=== PATIENT | male | born 2005 | race Caucasian/White ===

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

== ENCOUNTER 2025-01-17 16:06 | Inpatient (IN) ==
[2025-01-17 17:01] LABS: Basophils # (auto) 0.07 K/uL (0.00-0.20); Basophils % (auto) 1.1 %; Eosinophils # (auto) 0.17 K/uL (0.00-0.50); Eosinophils % (auto) 2.7 %; Hematocrit (blood only) 23.4 % (42.0-52.0); Hemoglobin 8.2 g/dl (14.0-18.0); Immature Granulocytes # (auto) 0.02 K/uL (0.01-0.20); Immature Granulocytes % (auto) 0.3 %; Lymphocytes # (auto) 1.49 K/uL (1.20-3.40); Lymphocytes % (auto) 23.7 %; Mean Corpuscular Volume 85.7 fL (80.0-100.0); Mean Platelet Volume 11.4 fL (9.4-12.4); Monocytes # (auto) 0.39 K/uL (0.11-0.59); Monocytes % (auto) 6.2 %; Neutrophils # (auto) 4.16 K/uL (1.40-6.50); Platelet Count 132 K/uL (130-400); RDW Coefficient of Variation 13.7 % (11.5-14.5); RDW Standard Deviation 42.5 fL (36.4-46.3); Red Blood Count 2.73 M/uL (4.70-6.10)
[2025-01-17 17:15] LABS: Appearance Urine Clear (Clear); Bacteria Urine Automated None Seen (None Seen); Bilirubin Urine Negative (Negative); Blood Urine 2+ (Negative); Cast Urine Automated 0-2 /lpf (0-2); Color Urine Yellow; Epithelial Cell Urine Auto 0-2 /hpf (0-2); Glucose Urine UA 1+ (Negative); Ketones Urine Negative (Negative); Leukocyte Esterase Urine Negative (Negative); Nitrite Urine Negative (Negative); Protein Urine 4+ (Negative); Specific Gravity Urine 1.014 (1.000-1.030); Urobilinogen Urine Negative (Negative)
[2025-01-17 17:20] LABS: Albumin Globulin Ratio 0.9 (0.9-2); Albumin Level 2.5 gm/dl (3.4-5.0); Bilirubin,Total 0.2 mg/dl (0.2-1.0); Calcium 4.9 mg/dl (8.6-10.3); Creatinine Clr Calc Pharmacy 7.1 ml/min; Globulin 2.7 gm/dl (2.5-4.0); Potassium 4.1 mmol/L (3.5-5.1); Total Protein 5.2 gm/dl (6.0-8.3)
[2025-01-17 17:36] LABS: BUN Creatinine Ratio 7.3 (10-20)
[2025-01-17 18:02] LABS: INR 1.4 (0.9-1.1); Prothrombin Time 14.3 Seconds (9.0-12.0)
[2025-01-17] MEDS: CALCIUM GLUCONATE 1,000 MG/60 ML BAG IV STA ×3 (18:21→23:16)
--- NOTE | 2025-01-17 18:29 | Emergency Department Note ---
Impression & Plan ARIANA (acute kidney injury), FSGS (focal segmental glomerulosclerosis), CKD (chronic kidney disease), Hypocalcemia ED Provider Note NAME: JI MCCOY AGE: 20 SEX: M : 2005 ARRIVES VIA: Walk-In INFORMANT: Patient, ED PROVIDER(S): Bebe Herrera MD CHIEF COMPLAINT: Elevated creatinine HPI: This is a 20-year-old male with history of FSGS, CKD, nephrotic syndrome presenting for elevated creatinine. Patient states he was doing routine blood work today to check his INR when they also added on normal labs. At this time his creatinine is over 18. Told to come to the ER for this. Patient tells me he said no acute changes to his life. The only change he has had is that he notes occasional cramping to any muscle. He notes no fevers, chills, nausea, vomiting. No oliguria. He is urinating normal amounts as per self-report. He reports no discolored urine or dark urine but he notes it is fairly clear. ROS: See above HPI for pertinent positives & negatives. A total of 10 systems reviewed and were otherwise negative. PAST MEDICAL HISTORY: See Below PAST SURGICAL HISTORY: See Below FAMILY HISTORY: See Below SOCIAL HISTORY: See Below HOME MEDICATIONS: See Below ALLERGIES: See Below VITALS: See Below PHYSICAL EXAMINATION: General: resting comfortably in no acute distress Head: Normocephalic and atraumatic Eyes: Normal inspection, extraocular muscles intact Ear, nose, throat: Normal external exam Neck: Normal range of motion Respiratory: lungs clear to auscultation bilaterally Cardiovascular: Regular rate/rhythm, no murmur GI: soft, nontender, no guarding or rebound Extremities: nontender, moves all extremities Neuro: The patient awake and alert, appropriately conversive, no focal deficits, symmetric faces Skin: Warm, dry, and intact MEDICAL DECISION MAKING: This is a 20-year-old male presents for elevated creatinine. Patient's creatinine is over 18. His calcium is 4.6 with ionized calcium of 0.64. Will give calcium gluconate at this time. - Patient does not appear grossly fluid overloaded. - Lab work is reviewed currently with new anemia to 8.2, consider chronic from his CKD. He is reported no rectal bleeding. INR here is 1.4 otherwise (down from 3.6 about 2 hours earlier_ - BUN 138. Total protein albumin low as well. - Urinalysis reveals WBC, RBC, protein without signs of clear infection. -Discussed with Dr. Braxton for admission. Requests nephrology consultation prior to admission - Dr. Woods, terrazzo polisher helper, consulted. Advised to watch fluid status, correct electrolytes. - Patient admitted to Dr. Braxton. Differential diagnosis: CKD, ARIANA, renal failure, oliguria, hypokalemia, hyperkalemia, Independent History obtained from: sister and mother Diagnostics interpreted by me: ECG: None Cardiac Monitoring: An order was placed for continuous cardiac monitoring. The monitor shows a rate of 96 with rhythm. Past Med/Surg History Problem List (Updated 09/21/23 @ 00:08 by Background Daemon) Hypocalcemia (Acute) CKD (chronic kidney disease) (Acute) FSGS (focal segmental glomerulosclerosis) (Acute) ARIANA (acute kidney injury) (Acute) Hypocalcemia due to chronic kidney disease Generalized anxiety disorder Thrombophilia Superficial venous thrombosis of arm Vitamin D deficiency FSGS (focal segmental glomerulosclerosis) Stage 3b chronic kidney disease Warfarin anticoagulation Abdominal pain Abnormal thyroid function test Leukocytosis Acute kidney injury Anasarca associated with disorder of kidney (Acute) Biceps tendinitis Left shoulder pain Hypertension Nephrotic syndrome (Chronic) Internal derangement of knee Acute medial meniscus tear of left knee S/P left knee arthroscopy Surgical History (Updated 09/21/23 @ 00:08 by Background Daemon) H/O hernia repair No significant past surgical history Family History Mother Diabetes Grandfather (Maternal) Hypertension Other No family history of adverse response to anesthesia Denies family history of Ovarian cancer Prostate cancer Myocardial infarction Breast cancer Lung cancer Stroke Social History Smoking Status: Never smoker Second Hand Exposure: Yes (mom smokes); Do You Dip or Chew Tobacco: No; Hx Alcohol Use: No Hx Substance Use: No Preferred Language: Indian Communication Ability: Effective Visual Impairment: No Limitations Hearing Ability: Normal Employment Office Clerk Required: No Beliefs That Will Affect Care: None marital status: Single Current Living Situation: Family Current Living Situation Comment: lives at home with parents current occupational status: employed 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 How many Children do You have: 0 Feels Safe at Home: Yes Childhood Exposure to Second-Hand Smoke: No caffeine: No Dental Care, Regularly: Yes Physical Activity Frequency: 5-6 Times per Week Seatbelt Use: always Sunscreen Use: No Assistive Devices: None Allergies Allergies Allergy/AdvReac Type Severity Reaction Status Date / Time No Known Allergies Allergy Unknown Verified 01/17/25 18:03 Home Meds Home Medications Medication Instructions Recorded Confirmed warfarin 5 mg tablet See Rx Instructions PO DAILY 10/22/24 01/17/25 Previous Rx's Medication Instructions Recorded losartan 25 mg tablet 25 mg PO DAILY #30 tabs 10/21/24 hydroxyzine HCl 25 mg tablet 25 mg PO TID PRN anxiety #90 tabs 11/13/24 Results & Data (ED) Vital Signs Vital Signs - 24 hr 01/17/25 16:25 01/17/25 18:17 Temperature 36.6 C Temperature Source Temporal Artery Scan Pulse Rate 85 Pulse Rate [Finger] 96 H Respiratory Rate 20 16 Respiratory Effort / Characteristics Non-Labored Spontaneous Non-Labored Spontaneous Respiratory Depth Normal Normal Respiratory Pattern Regular Regular Blood Pressure 203/129 H Blood Pressure [Right Arm] 178/120 H Blood Pressure Mean 153 Blood Pressure Mean [Right Arm] 139 Blood Pressure Position Sitting Blood Pressure Position [Right Arm] Lying Pulse Oximetry 100 96 Oxygen Delivery Method Room Air Room Air Sepsis Recent Fever Within 48 Hours No Sepsis New/Unexplained Change in Mental Status N/A Sepsis Action Taken by Nursing No Action Required Laboratory Data 01/17/25 16:45 01/17/25 16:45 Lab Results 01/17/25 01/17/25 Range/Units 16:45 17:22 WBC 6.30 (4.8-10.8) K/ul RBC 2.73 L (4.70-6.10) M/uL Hgb 8.2 L (14.0-18.0) g/dl Hct 23.4 L (42.0-52.0) % MCV 85.7 (80.0-100.0) fL MCH 30.0 (25.0-34.0) pg MCHC 35.0 (32.0-36.0) g/dL RDW Std Deviation 42.5 (36.4-46.3) fL RDW Coeff of Juliana 13.7 (11.5-14.5) % Plt Count 132 (130-400) K/uL MPV 11.4 (9.4-12.4) fL Immature Gran % (Auto) 0.3 % Neut % (Auto) 66.0 % Lymph % (Auto) 23.7 % White % (Auto) 6.2 % Eos % (Auto) 2.7 % Baso % (Auto) 1.1 % Neut # (Auto) 4.16 (1.40-6.50) K/uL Lymph # (Auto) 1.49 (1.20-3.40) K/uL White # (Auto) 0.39 (0.11-0.59) K/uL Eos # (Auto) 0.17 (0.00-0.50) K/uL Baso # (Auto) 0.07 (0.00-0.20) K/uL Immature Gran # (Auto) 0.02 (0.01-0.20) K/uL PT 14.3 H (9.0-12.0) Seconds INR 1.4 H (0.9-1.1) Sodium 140 (136-145) mmol/L Potassium 4.1 (3.5-5.1) mmol/L Chloride 109 H (98-107) mmol/L Carbon Dioxide 18 L (21-32) mmol/L Anion Gap 13 H (3-11) BUN 138 H (6-23) mg/dl Creatinine 18.80 H* (0.6-1.4) mg/dl Est Cr Clr Drug Dosing 7.1 ml/min eGFR 3.27 BUN/Creatinine Ratio 7.3 L (10-20) Glucose 91 (70-99(Fasting)) mg/dl Calcium 4.9 L* (8.6-10.3) mg/dl Ionized Calcium 0.64 L* mmol/L Total Bilirubin 0.2 (0.2-1.0) mg/dl AST 27 (13-39) U/L ALT 17 (7-52) U/L Alkaline Phosphatase 91 (34-104) U/L Total Protein 5.2 L (6.0-8.3) gm/dl Albumin 2.5 L (3.4-5.0) gm/dl Globulin 2.7 (2.5-4.0) gm/dl Albumin/Globulin Ratio 0.9 (0.9-2) Urine Color Yellow Urine Appearance Clear (Clear) Urine pH 6.0 (4.5-7.5) Ur Specific Stuart 1.014 (1.000-1.030) Urine Protein 4+ H (Negative) Urine Glucose (UA) 1+ H (Negative) Urine Ketones Negative (Negative) Urine Blood 2+ H (Negative) Urine Nitrite Negative (Negative) Urine Bilirubin Negative (Negative) Urine Urobilinogen Negative (Negative) Ur Leukocyte Esterase Negative (Negative) Urine WBC (Auto) 6-10 H (0-5) /hpf Urine RBC (Auto) 11-20 H (0-2) /hpf U Hyaline Cast (Auto) 0-2 (0-2) /lpf U Epithel Cells (Auto) 0-2 (0-2) /hpf Urine Bacteria (Auto) None Seen (None Seen) Administered Medications Discontinued Medications Calcium Gluconate () 1,000 mg in 60 mls @ 240 mls/hr IV NOW STA Stop: 01/17/25 18:17 Last Infusion: 01/17/25 18:57 Dose: Infused Documented By: Admin: 01/17/25 18:21 Dose: 240 mls/hr Documented By: CRIS Discharge Plan Visit Data Chief Complaint: Abnormal Labs/Diagnostic Testing Stated Complaint: ABNORMAL LABS, REF BY DEC ED Provider: Bebe Herrera Discharge Problem: ARIANA (acute kidney injury), FSGS (focal segmental glomerulosclerosis), CKD (chronic kidney disease), Hypocalcemia Forms Stand Alone Forms: [email or web address] Prescriptions Prescriptions: No Action warfarin 5 mg tablet See Rx Instructions PO DAILY Rx Instructions: TAKES AT HS. 0 mg every Monday, 10mg x 6 days or UD per [facility] orally daily; hydroxyzine HCl 25 mg tablet 25 mg PO TID PRN (Reason: anxiety) Qty: 90 1RF losartan 25 mg tablet 25 mg PO DAILY Qty: 30 2RF Referrals Referrals: Harsh Marshall DO [Primary Care Provider] - Discharge Problem: CKD (chronic kidney disease) Qualifiers: Chronic kidney disease stage: stage 5 (GFR < 15), not on chronic dialysis Q ualified Code(s): N18.5 - Chronic kidney disease, stage 5
[2025-01-17] MEDS ORDERED: MELATONIN 3 MG TAB PO PRN (19:02)
[2025-01-17] MEDS ORDERED: POLYETHYLENE (MIRALAX) 17 GM PACK PO PRN (19:02)
--- NOTE | 2025-01-17 19:26 | History & Physical Report ---
Date of Service January 17, 2025 Assessment & Plan (1) Hypocalcemia: (2) CKD (chronic kidney disease): (3) FSGS (focal segmental glomerulosclerosis): (4) ARIANA (acute kidney injury): (5) Generalized anxiety disorder: (6) Thrombophilia: (7) Superficial venous thrombosis of arm: (8) Hypertension: (9) Anemia: (10) Metabolic acidosis: Plan 20 yo male with h/o Stage 3B CKD with Nephrotic syndrome with FSGS, thrombophilia under warfarin, CORTES presented to ED with elevated creatinine number, was referred by PCP office to ED. ED team consulted with nephrology Dr. Woods, who recommends IV fluids an reassess. There is no indication for HD right away. His calcium is pretty low, s/p 2 gm IV Ca gluconate, symptomatic, will recheck Ca tonight before repeating 3rd dose. # ARIANA on CKD with metabolic acidosis - Cr: 18, K: 4.4, mild anion gap metabolic acidosis( CO2: 18). - IV fluid maintenance; 100 ml / hr LR. - Recheck evening labs at 11 . - Recheck labs at AM. - Nephrology Dr. Woods informed by ED-- will follow. No need of HD now. #Severe Hypocalcemia - 2/2 to CKD. - Ca: 4.9/ Ionized Ca: 0.64 - S/P 1 gm Calcium Gluconate X 2 given at ED. - Will recheck Ca tonight and add more Ca if needed. -Admit to Med/ surg tele. -EKG STAT -TSH AM. #Thrombophilia under Coumadin - H/O superficial VT, no DVT/ PE. - INR: 1.4( goal 2-3) - Restart home Coumadin. - Recheck INR AM. #HTN - 2/2 to FSGS - Home Losartan held - Hydralazine 5 mg IV PRN ( SBP> 200) Dispo: Admit med/surg Tele DVT prophylaxis: Warfarin Code Status: Full History of Present Illness Primary Care Provider: Harsh Marshall DO 20 yo male with h/o Stage 3B CKD with Nephrotic syndrome with FSGS, thrombophilia under warfarin, CORTES presented tp ED with deranged creatinine. He was doing his regular labs today and PCP office informed him to go to ED. Does not endorse swelling anywhere in body, no change in urine output that he notices. He had presented with body swelling when he initially had kidney injury on 2021. He gives h/o having more frequent muscle cramps of extremity, mostly in legs, in night time in last 1 month. He mentions he has decreased appetite from baseline but no nausea or vomiting or No distension of belly, no flank pain, no CP, no SOB. No obstructive symptoms of urine, no fever, URI sx, no trauma, exposure to sick contact. Gives h/o passing out once 2 weeks ago when he was out in a concert, no abnormal body movement, no muscle weakness, no vomiting, thinks it was probably because of excessive heat in mass of people. No recurrent LOC/passing put after that. His INR tested on PCP's office was in range of 8 two days back, hence warfarin was on hold, was planned to start fro, today from Coumadin clinic. Endorses h/o superficial thrombophlebitis following an IV, however no DVT or PE. Family: Uncle has h/o blood issue, pretty severe he says, not sure what it is, though. No 1st degree family history. PMH: reviewed Drug and Allergy : reviewed Allergies Allergy/AdvReac Type Severity Reaction Status Date / Time No Known Allergies Allergy Unknown Verified 01/17/25 18:03 Home Medications Medication Instructions Recorded Confirmed Type losartan 25 mg tablet 25 mg PO DAILY #30 tabs 10/21/24 01/17/25 Rx warfarin 5 mg tablet See Rx Instructions PO DAILY 10/22/24 01/17/25 History hydroxyzine HCl 25 mg tablet 25 mg PO TID PRN anxiety #90 tabs 11/13/24 01/17/25 Rx Past Med/Surg History Problem List (Updated 09/21/23 @ 00:08 by Background Daemon) Metabolic acidosis Anemia Hypocalcemia (Acute) CKD (chronic kidney disease) (Acute) FSGS (focal segmental glomerulosclerosis) (Acute) ARIANA (acute kidney injury) (Acute) Hypocalcemia due to chronic kidney disease Generalized anxiety disorder Thrombophilia Superficial venous thrombosis of arm Vitamin D deficiency FSGS (focal segmental glomerulosclerosis) Stage 3b chronic kidney disease Warfarin anticoagulation Abdominal pain Abnormal thyroid function test Leukocytosis Acute kidney injury Anasarca associated with disorder of kidney (Acute) Biceps tendinitis Left shoulder pain Hypertension Nephrotic syndrome (Chronic) Internal derangement of knee Acute medial meniscus tear of left knee S/P left knee arthroscopy Surgical History (Updated 09/21/23 @ 00:08 by Paulino Wilkes) H/O hernia repair No significant past surgical history Family History Mother Diabetes Grandfather (Maternal) Hypertension Other No family history of adverse response to anesthesia Denies family history of Ovarian cancer Prostate cancer Myocardial infarction Breast cancer Lung cancer Stroke Social History Smoking Status: Never smoker Second Hand Exposure: Yes (mom smokes); Do You Dip or Chew Tobacco: No; Hx Alcohol Use: No Hx Substance Use: No Preferred Language: Divehi Communication Ability: Effective Visual Impairment: No Limitations Hearing Ability: Normal Gate Supervisor Required: No Beliefs That Will Affect Care: None marital status: Single Current Living Situation: Family Current Living Situation Comment: lives at home with parents current occupational status: employed 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 HEENT: Atraumatic, Normocephalic, No conjunctival injection CVS: S1 S2 no murmur, Regular Rhythm, no LE edema Respiratory: BL equal air entry with NVBS. No rhonchi, wheezes, or crackles. No increased work of breathing GI: Soft, Nondistended, Nontender, Normal Bowel sounds + MSK: No gross deformities noted Skin: Warm, Dry, No rashes Extremity: no extremity swelling Neuro: Alert, Oriented to TPP, No Focal deficit Psych: Mood and Affect congruent, Cooperative on exam Results & Data Results & Data Vital Signs (Past 12 Hours) Vital Signs Temp Pulse Pulse Resp BP BP Pulse Ox 01/17/25 18:17 96 H 16 178/120 H 96 01/17/25 16:25 36.6 C 85 20 203/129 H 100 O2 Del Method 01/17/25 18:17 Room Air 01/17/25 16:25 Room Air Code Status & VTE Plan VTE Prophylaxis Plan VTE Prophylaxis will be ordered: Yes Supervising Physician Co-Signing Physician Notes I have personally seen, evaluated and examined the patient. I have also personally discussed the management of the patient with the resident physician/EFRAIN and I agree with the exam findings documented in the history and physical examination and the documented assessment and plan unless otherwise stated below. Brief Exam: In general very pleasant 20-year-old male who is alert and oriented x 3. His only complaint is intermittent cramping currently at the time my evaluation is having a right lower extremity cramp. States has been urinating normally. He has no urinary symptomatology. He interacts appropriate and pleasantly. HEENT: Normocephalic atraumatic. Heart: Regular rate and rhythm no murmur ectopy or rub Lungs: Clear bilaterally. Abdomen: Flat soft and nontender. Extremities: Intact no significant clubbing cyanosis or edema. Neurologically: Alert and orient x 3 with no focal deficit whatsoever. Assessment/plan: As described above. Acute kidney injury CKD stage in the setting of FSGS. IV fluids. Nephrology consulted. ER doctor spoke personally with the patient's outpatient filing clerk who will see him as inpatient consultation. Replace calcium and recheck levels. Will start with 2 g total of calcium gluconate. Hold his angiotensin receptor carmelita. As needed hydralazine for blood pressure control at this time. Bladder scan for completeness I did speak with the nurse at the bedside to let us know if the patient is retaining urine. Will give 1 dose of Coumadin tonight 5 mg. Recheck INR in the morning. He will need daily Coumadin dosing. Please refer to orders for further planning. Resident Activity Tracking Resident Involvement: Resident Care Provided Care Provided: Adult Hospital Medicine (2) CKD (chronic kidney disease) Chronic kidney disease stage: stage 5 (GFR < 15), not on chronic dialysis Qualified Code(s): N18.5 - Chronic kidney disease, stage 5
--- NOTE | 2025-01-17 20:29 | Billing Data ---
Date of Service January 17, 2025 Coding Level of Care Code 64700 INT INP/OBS CARE
[2025-01-17] MEDS: LACTATED RINGER'S 1,000 ML IV SCH (20:40)
[2025-01-17] MEDS ORDERED: hydrALAZINE HCL 20 MG/ML VIAL IV PRN (22:09)
[2025-01-17] MEDS ORDERED: hydrOXYzine HCl 25 MG TAB PO PRN (22:09)
[2025-01-17] MEDS: WARFARIN SOD 10 MG TAB PO STA (23:15)
[2025-01-17 23:38] LABS: Calcium 4.9 mg/dl (8.6-10.3); Creatinine Clr Calc Pharmacy 6.9 ml/min; Magnesium 1.5 mg/dl (1.7-2.4); Potassium 3.5 mmol/L (3.5-5.1)
[2025-01-17 23:59] LABS: BUN Creatinine Ratio 7.3 (10-20)
[2025-01-18 07:55] LABS: Hematocrit (blood only) 20.3 % (42.0-52.0); Mean Corpuscular Hemoglobin 29.7 pg (25.0-34.0); Mean Corpuscular Hgb Conc 34.5 g/dL (32.0-36.0); Mean Platelet Volume 11.4 fL (9.4-12.4); Platelet Count 108 K/uL (130-400); RDW Coefficient of Variation 13.6 % (11.5-14.5); RDW Standard Deviation 42.8 fL (36.4-46.3); Red Blood Count 2.36 M/uL (4.70-6.10)
[2025-01-18 08:04] LABS: INR 1.3 (0.9-1.1); Prothrombin Time 13.6 Seconds (9.0-12.0)
[2025-01-18 08:07] LABS: Basophils # (auto) 0.08 K/uL (0.00-0.20); Basophils % (auto) 1.4 %; Eosinophils # (auto) 0.19 K/uL (0.00-0.50); Eosinophils % (auto) 3.4 %; Immature Granulocytes # (auto) 0.02 K/uL (0.01-0.20); Immature Granulocytes % (auto) 0.4 %; Lymphocytes # (auto) 1.34 K/uL (1.20-3.40); Lymphocytes % (auto) 23.9 %; Monocytes # (auto) 0.31 K/uL (0.11-0.59); Monocytes % (auto) 5.5 %; Neutrophils # (auto) 3.66 K/uL (1.40-6.50); Neutrophils % (auto) 65.4 %; RBC Morphology Unremarkable
[2025-01-18 08:31] LABS: BUN Creatinine Ratio 7.2 (10-20); Potassium 4.1 mmol/L (3.5-5.1)
[2025-01-18] MEDS: ERGOCALCIFEROL 1250 MCG (50,000 UNITS) CAP PO ONE (08:37)
[2025-01-18] MEDS: CHOLECALCIFEROL 125 MCG (5,000 UNITS) TAB PO SCH (08:37)
[2025-01-18] MEDS: CALCIUM CARBONATE 500 MG CHEWABLE TAB PO SCH (09:09)
--- NOTE | 2025-01-18 10:48 | Nephrology Consultation ---
Date of Consultation January 18, 2025 Assessment & Plan (1) CKD (chronic kidney disease): CKD V A3. Biopsy from September 2023 demonstrated advanced CKD. Findings consistent with primary FSGS. Immunotherapy is not be indicated at this stage. Creatinine was 7.5 mg/dL in September. Creatinine is now >18. Kvng is living with minimal GFR. Thankfully, he feels well and denies uremic symptoms. Unfortunately, he has notable sequela of CKD, including MBD and anemia. Volume status is relatively euvolemic but he is hypertensive. We discussed indications for dialysis today. I reviewed options for [employer] and we discussed goals of care. Kvng reports no knowledge about renal replacement therapy options or indications. He acknowledged his advanced CKD but expressed hesitancy is moving forward with plans for dialysis. I explained that starting hemodialysis before he leaves the hospital would be the safest and best option for his health. We discussed potential HD catheter placement on Monday. He is processing the information. Management provided today was focused on treatment of metabolic acidosis, anemia, and hypocalcemia. Medications are appropriate for kidney function. Maintain a renal diet. Labs will be updated tomorrow AM and I will follow up with Kvng at that time. (2) FSGS (focal segmental glomerulosclerosis): Records from Dr. Guevara and prior biopsy report were reviewed. (3) Hypocalcemia: Start calcitriol 1 mcg daily. Continue calcium carbonate 4054-0466 mg daily. Check calcium, ionized calcium, phosphorus, PTH, and albumin tomorrow AM. (4) Anemia: Epogen 10477 units SC now. Iron profile with next labs. (5) Metabolic acidosis: Continue calcium carbonate. Recheck serum metabolic profile tomorrow AM. (6) Hypertension: Amlodipine 5 mg now. Consider holding IVF once current bag complete. Avoid RAASi - OC/ARB for now given advanced CKD. History of Present Illness Reason for Consultation: ARIANA on CKD Requesting Physician: Ja Wisdom DO Attending Physician: Ja Wisdom DO History of Present Illness Mr. Kvng Ramos is a 20 year-old male with chronic kidney disease who presented to the ER at [facility] yesterday after blood work obtained by his PCP demonstrated advanced kidney dysfunction and anemia. Kvng states that he has been feeling well. He admits to recent muscle cramps and fatigue but good strength and overall quality of life. He has been working out - going to the gym 3x per week, staying on his feet all day at work, and eating healthy. He was resting comfortably in his hospital bed this morning. Appetite is good. He denies fluid retention or edema. He is non-oliguric. He is working at [employer] currently and living with his mother. He has a history of occasional migraine headaches managed with Tylenol. He does not use NSAIDS. 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 The only medication that he has been taking is Coumadin. Creatinine in September was measured at 7.5 mg/dL. Kvng has not maintained regular follow up with nephrology. He has [place] [facility] [place] with Dr. Guevara in the past. In September, they discussed potential progression to ESKD requiring dialysis. Treatment options for his condition were discussed at that time, including Rituximab but Kvng declined. He has been managing his condition with dietary modification. Kvng has been aware of his kidney disease who a long time. 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 A follow up biopsy obtained in September 2023 was consistent with advanced kidney disease ( glomeruli globally sclerosed; ~70% IFTA) and primary FSGS. Nephrotic range proteinuria for years - documented at 10-40 g/d. Allergies Allergy/AdvReac Type Severity Reaction Status Date / Time No Known Allergies Allergy Unknown Verified 01/17/25 18:03 Home Medications Medication Instructions Recorded Confirmed Type losartan 25 mg tablet 25 mg PO DAILY #30 tabs 10/21/24 01/17/25 Rx warfarin 5 mg tablet See Rx Instructions PO DAILY 10/22/24 01/17/25 History hydroxyzine HCl 25 mg tablet 25 mg PO TID PRN anxiety #90 tabs 11/13/24 01/17/25 Rx Patient History Medical History (Updated 01/18/25 @ 10:50 by Andriy Woods DO) Acute medial meniscus tear of left knee Surgical History (Updated 01/18/25 @ 10:50 by Andriy Woods DO) S/P left knee arthroscopy H/O hernia repair Family History Mother Diabetes Grandfather (Maternal) Hypertension Other No family history of adverse response to anesthesia Denies family history of Ovarian cancer Prostate cancer Myocardial infarction Breast cancer Lung cancer Stroke Social History Smoking Status: Never smoker Second Hand Exposure: Yes (mom smokes); Do You Dip or Chew Tobacco: No; Hx Alcohol Use: No Hx Substance Use: Yes Substance Use Type Other:: medical card Preferred Language: Central [place] Communication Ability: Effective Visual Impairment: No Limitations Hearing Ability: Normal Road Cutter Required: No Beliefs That Will Affect Care: None marital status: Single Current Living Situation: Family Current Living Situation Comment: lives at home with parents current occupational status: employed 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 How many Children do You have: 0 Feels Safe at Home: Yes Childhood Exposure to Second-Hand Smoke: No caffeine: No Dental Care, Regularly: Yes Physical Activity Frequency: 5-6 Times per Week Seatbelt Use: always Sunscreen Use: No Assistive Devices: None Review of Systems Review of Systems: All systems reviewed & are unremarkable except as noted in HPI & below Physical Exam Constitutional: well developed; no acute distress Eyes: no scleral abnormality and no corneal abnormality ENMT: Mouth: no oral mucosal abnormality and oral mucous membranes not dry Neck: normal visual inspection and trachea midline Respiratory: normal respiratory effort Auscultation: lungs clear to auscultation bilaterally Cardiovascular: Rate/Rhythm: regular rate Heart Sounds: normal S1 and normal S2 Extremities: no edema Musculoskeletal: Extremities: no cyanosis and no clubbing Skin: normal turgor; no lesions Neurologic: Motor/Sensory: + asterixis Psychiatric: Orientation: alert and oriented x 3 Results & Data Vital Signs (Past 12 Hours) Vital Signs Temp Pulse Pulse Pulse Resp BP Pulse Ox 01/18/25 08:11 78 18 178/80 H 100 01/18/25 05:53 64 01/18/25 03:40 36.5 C 68 16 157/90 H 98 01/18/25 01:14 01/18/25 00:23 36.6 C 80 17 183/82 H 100 01/18/25 00:17 80 01/17/25 23:09 86 20 171/109 H 99 O2 Del Method 01/18/25 08:11 Room Air 01/18/25 05:53 01/18/25 03:40 Room Air 01/18/25 01:14 Room Air 01/18/25 00:23 Room Air 01/18/25 00:17 01/17/25 23:09 Room Air Laboratory Results Laboratory Results - last 24 hr 01/17/25 01/17/25 01/17/25 16:45 17:22 22:39 WBC 6.30 RBC 2.73 L Hgb 8.2 L Hct 23.4 L MCV 85.7 MCH 30.0 MCHC 35.0 RDW Std Deviation 42.5 RDW Coeff of Juliana 13.7 Plt Count 132 MPV 11.4 Immature Gran % (Auto) 0.3 Neut % (Auto) 66.0 Lymph % (Auto) 23.7 [place] % (Auto) 6.2 Eos % (Auto) 2.7 Baso % (Auto) 1.1 Neut # (Auto) 4.16 Lymph # (Auto) 1.49 [place] # (Auto) 0.39 Eos # (Auto) 0.17 Baso # (Auto) 0.07 Immature Gran # (Auto) 0.02 RBC Morphology PT 14.3 H INR 1.4 H Sodium 140 136 Potassium 4.1 3.5 Chloride 109 H 106 Carbon Dioxide 18 L 17 L Anion Gap 13 H 13 H BUN 138 H 140 H Creatinine 18.80 H* 19.20 H* D Est Cr Clr Drug Dosing 7.1 6.9 eGFR 3.27 3.19 BUN/Creatinine Ratio 7.3 L 7.3 L Glucose 91 156 H Calcium 4.9 L* 4.9 L* Ionized Calcium 0.64 L* 0.70 L* Magnesium 1.5 L Total Bilirubin 0.2 AST 27 ALT 17 Alkaline Phosphatase 91 Total Protein 5.2 L Albumin 2.5 L Globulin 2.7 Albumin/Globulin Ratio 0.9 Urine Color Yellow Urine Appearance Clear Urine pH 6.0 Ur Specific Sharples 1.014 Urine Protein 4+ H Urine Glucose (UA) 1+ H Urine Ketones Negative Urine Blood 2+ H Urine Nitrite Negative Urine Bilirubin Negative Urine Urobilinogen Negative Ur Leukocyte Esterase Negative Urine WBC (Auto) 6-10 H Urine RBC (Auto) 11-20 H U Hyaline Cast (Auto) 0-2 U Epithel Cells (Auto) 0-2 Urine Bacteria (Auto) None Seen 01/18/25 06:55 WBC 5.60 RBC 2.36 L Hgb 7.0 L Hct 20.3 L* MCV 86.0 MCH 29.7 MCHC 34.5 RDW Std Deviation 42.8 RDW Coeff of Juliana 13.6 Plt Count 108 L MPV 11.4 Immature Gran % (Auto) 0.4 Neut % (Auto) 65.4 Lymph % (Auto) 23.9 [place] % (Auto) 5.5 Eos % (Auto) 3.4 Baso % (Auto) 1.4 Neut # (Auto) 3.66 Lymph # (Auto) 1.34 [place] # (Auto) 0.31 Eos # (Auto) 0.19 Baso # (Auto) 0.08 Immature Gran # (Auto) 0.02 RBC Morphology Unremarkable PT 13.6 H INR 1.3 H Sodium 138 Potassium 4.1 Chloride 109 H Carbon Dioxide 17 L Anion Gap 12 H BUN 136 H Creatinine 18.94 H* Est Cr Clr Drug Dosing 7.0 eGFR 3.24 BUN/Creatinine Ratio 7.2 L Glucose 94 Calcium 5.0 L* Ionized Calcium Magnesium Total Bilirubin AST ALT Alkaline Phosphatase Total Protein Albumin Globulin Albumin/Globulin Ratio Urine Color Urine Appearance Urine pH Ur Specific Sharples Urine Protein Urine Glucose (UA) Urine Ketones Urine Blood Urine Nitrite Urine Bilirubin Urine Urobilinogen Ur Leukocyte Esterase Urine WBC (Auto) Urine RBC (Auto) U Hyaline Cast (Auto) U Epithel Cells (Auto) Urine Bacteria (Auto) Diagnostic Findings US renal/blad retro comp COMPARISON: 09/04/2023. FINDINGS: Right Kidney: The right kidney measures 11.8cm. No cysts, hydronephrosis, calculi, or masses were identified. Renal parenchymal echogenicity increased with lost cortical differentiation. Cortical thickness: Within normal. Renal pelvis within normal. There is minimal perinephric fluid surrounding the lower pole Left Kidney: The left kidney measures 12.8 cm. No hydronephrosis, calculi, or masses were identified. Renal parenchymal echogenicity is increased. Cortical thickness: Within normal. Renal pelvis within normal. There is minimal perinephric fluid surrounding the lower pole. There are multiple renal cysts the largest in the upper pole measuring 0.8x0.9x0.9cm with minimal fine septations. Urinary bladder: The urinary bladder is inadequately distended with wall edema and echogenic debris with possible septae and kink in the bladder wall. No calculus is noted in it. Bilateral ureteral jets are not seen. Incidental finding of splenomegaly; the spleen measures 18.1 cm Hepatimegaly the liver measures 19.8 cm. IMPRESSION: 1. Both kidneys are normal in size with increased cortical echogenicity and loss of cortical differentiation more on the left side indicating chronic parenchyma kidney disease. 2. Left renal multiple simple cysts. 3. Bilateral minimal perinephric fluid collection. 4. Turbid urinary bladder contents and mild wall edema for further lab evaluation. 5. Incidental findings of splenomegaly and hepatomegaly with heterogenous echotexture. Further ultrasound and lab evaluation are advised if clinically warranted. 6. No time interval changes when compared with the previous study. PG Care Time/CCT Total # of Minutes Spent Total Time Spent with Patient: Total time spent is greater than 50% in coordination of care (as documented) at patient's floor/unit and/or counseling patient: Coding Level of Care Code 98913 IN/OBS CONSULT LVL 5,80M Diagnoses CKD (chronic kidney disease) N18.5 Chronic kidney disease stage: stage 5 (GFR < 15), not on chronic dialysis FSGS (focal segmental glomerulosclerosis) N05.1 Hypocalcemia E83.51 Anemia D64.9 Metabolic acidosis E87.20 Hypertension I10 (1) CKD (chronic kidney disease) Chronic kidney disease stage: stage 5 (GFR < 15), not on chronic dialysis Qualified Code(s): N18.5 - Chronic kidney disease, stage 5
[2025-01-18] MEDS: CALCITRIOL 0.25 MCG CAPSULE PO SCH (11:23)
[2025-01-18] MEDS: amLODIPine BESYLATE 5 MG TAB PO SCH (11:23)
[2025-01-18] MEDS: EPOETIN ALFA 10,000 UNITS/ML VIAL SQ ONE (11:29)
--- NOTE | 2025-01-18 11:37 | Hospitalist Progress Note ---
Date of Service January 18, 2025 Assessment & Plan (1) Hypocalcemia: (2) CKD (chronic kidney disease): (3) FSGS (focal segmental glomerulosclerosis): (4) ARIANA (acute kidney injury): (5) Generalized anxiety disorder: (6) Thrombophilia: (7) Anemia: (8) Metabolic acidosis: Plan 20 yo male with h/o Stage 3B CKD with Nephrotic syndrome with FSGS, thrombophilia under warfarin, CORTES presented to ED with elevated creatinine number, was referred by PCP office to ED. ED team consulted with nephrology Dr. Woods, who recommends IV fluids an reassess. There is no indication for HD right away. His calcium is pretty low, s/p 2 gm IV Ca gluconate, symptomatic, will recheck Ca tonight before repeating 3rd dose. # ARIANA on CKD 2/2 FSGS - Cr: 19, K: 5 - IV fluid maintenance; 100 ml / hr LR. - CBC/BMP QAM. - Iron studies QAM - Nephrology consulted, recommend EPO 10,000 units today and potential HD catheter placement on Monday and discussed options with patient. #Severe Hypocalcemia 2/2 CKD and vitamin D deficiency - Ca: 4.9/ Ionized Ca: 0.64 - S/P 1 gm Calcium Gluconate X 2 given at ED - Vitamin D severely low, <7 - Recheck Ca and iCa QAM - Continue replenishing Ca and vitamin d as needed - nephrology onboard #Thrombophilia under Coumadin/acute on chronic anemia - H/O superficial VT, no DVT/ PE. - INR: 1.3 - Patient with asymptomatic anemia, Hgb 7. Continue Warfarin, goal INR 2-2.5 - Anemia related to CKD/FSGS, EPO 10,000 units given per nephrology - Recheck INR AM. #HTN - 2/2 to FSGS - D/C OC/ARBs given FSGS/CKD per nephrology - Amlodipine 5 mg PO QAM Dispo: Admit med/surg Tele DVT prophylaxis: Warfarin Code Status: Full Admission and Anticipated Discharge Date Admission Date: January 17, 2025 Supervising Physician Co-Signing Physician Notes I personally examined the patient and verified all pastrana points of history and exam, discussed case, and agree with decision making with Dr Romero feeling ok. processing everything that's going on. discussed, and offered empathy and support vitals noted nad heent nc at mmm breathing unlabored no accessory muscles good effort ESRD - for HD. offered empathy and support follow INR otherwise as above Subjective Kvng Ramos is resting comfortably in bed when seen this morning. Patient feels very well, and reports that he is only here for a elevated lab finding, and other than some upper thoracic back pain from sleeping in an uncomfortable position, patient is without acute complaints or concerns. Patient denies fatigue, bleeding, lightheadedness, SOB, chest pain, or palpitations. Patient reports normal BMs and urination. Patient remains afebrile. Physical Exam Physical Exam: General: patient resting comfortably, NAD, non-toxic in appearance, answers questions appropriately. Skin: warm, dry, intact HEENT: NC/AT, anicteric sclera, conjunctiva without injection, moist mucus membranes. Heart: +S1/S2, regular, no m/r/g Lungs: equal air entry bilaterally, no rales/rhonchi/wheezes Abd: +BS, soft, NT/ND Ext: warm, no clubbing/cyanosis or edema Neuro: nonfocal, speech intact, no facial droop, moving all extremities. Results & Data Results & Data Vital Signs (Past 12 Hours) Vital Signs Temp Pulse Pulse Pulse Resp BP Pulse Ox 01/18/25 08:11 78 18 178/80 H 100 01/18/25 05:53 64 01/18/25 03:40 36.5 C 68 16 157/90 H 98 01/18/25 01:14 01/18/25 00:23 36.6 C 80 17 183/82 H 100 01/18/25 00:17 80 O2 Del Method 01/18/25 08:11 Room Air 01/18/25 05:53 01/18/25 03:40 Room Air 01/18/25 01:14 Room Air 01/18/25 00:23 Room Air 01/18/25 00:17 Resident Activity Tracking Resident Involvement: Resident Care Provided Care Provided: Adult Hospital Medicine (2) CKD (chronic kidney disease) Chronic kidney disease stage: stage 5 (GFR < 15), not on chronic dialysis Qualified Code(s): N18.5 - Chronic kidney disease, stage 5
--- NOTE | 2025-01-18 14:37 | Billing Data ---
Date of Service January 18, 2025 Coding Level of Care Code 11410 SUB INP/OBS CARE
[2025-01-18] MEDS: amLODIPine BESYLATE 5 MG TAB PO ONE (14:51)
[2025-01-18] MEDS: WARFARIN SOD 10 MG TAB PO ONE (15:21)
[2025-01-18 19:03] LABS: Basophils # (auto) 0.06 K/uL (0.00-0.20); Eosinophils # (auto) 0.08 K/uL (0.00-0.50); Eosinophils % (auto) 1.3 %; Hematocrit (blood only) 21.9 % (42.0-52.0); Hemoglobin 7.7 g/dl (14.0-18.0); Immature Granulocytes # (auto) 0.02 K/uL (0.01-0.20); Immature Granulocytes % (auto) 0.3 %; Lymphocytes # (auto) 1.04 K/uL (1.20-3.40); Lymphocytes % (auto) 16.5 %; Mean Corpuscular Hemoglobin 30.1 pg (25.0-34.0); Mean Corpuscular Hgb Conc 35.2 g/dL (32.0-36.0); Mean Corpuscular Volume 85.5 fL (80.0-100.0); Monocytes # (auto) 0.33 K/uL (0.11-0.59); Monocytes % (auto) 5.2 %; Neutrophils # (auto) 4.77 K/uL (1.40-6.50); Neutrophils % (auto) 75.7 %; Platelet Count 119 K/uL (130-400); RDW Coefficient of Variation 13.3 % (11.5-14.5); RDW Standard Deviation 41.9 fL (36.4-46.3); Red Blood Count 2.56 M/uL (4.70-6.10)
[2025-01-18 19:21] LABS: Anisocytosis Present; Tear Drop Cells 1+
[2025-01-19 07:23] LABS: Basophils # (auto) 0.07 K/uL (0.00-0.20); Eosinophils # (auto) 0.21 K/uL (0.00-0.50); Eosinophils % (auto) 3.1 %; Hematocrit (blood only) 21.6 % (42.0-52.0); Hemoglobin 7.4 g/dl (14.0-18.0); Immature Granulocytes # (auto) 0.02 K/uL (0.01-0.20); Immature Granulocytes % (auto) 0.3 %; Lymphocytes # (auto) 1.39 K/uL (1.20-3.40); Lymphocytes % (auto) 20.6 %; Mean Corpuscular Hemoglobin 29.6 pg (25.0-34.0); Mean Corpuscular Hgb Conc 34.3 g/dL (32.0-36.0); Mean Corpuscular Volume 86.4 fL (80.0-100.0); Mean Platelet Volume 11.5 fL (9.4-12.4); Monocytes # (auto) 0.35 K/uL (0.11-0.59); Monocytes % (auto) 5.2 %; Neutrophils # (auto) 4.71 K/uL (1.40-6.50); Neutrophils % (auto) 69.8 %; Platelet Count 137 K/uL (130-400); RDW Coefficient of Variation 13.6 % (11.5-14.5); RDW Standard Deviation 42.9 fL (36.4-46.3); White Blood Count 6.75 K/ul (4.8-10.8)
[2025-01-19 07:41] LABS: Hypersegmented Neutrophils 1+
[2025-01-19 07:53] LABS: INR 1.7 (0.9-1.1); Prothrombin Time 17.8 Seconds (9.0-12.0)
--- NOTE | 2025-01-19 08:19 | Hospitalist Progress Note ---
Date of Service January 19, 2025 Assessment & Plan (1) Hypocalcemia: (2) CKD (chronic kidney disease): (3) FSGS (focal segmental glomerulosclerosis): (4) ARIANA (acute kidney injury): (5) Generalized anxiety disorder: (6) Thrombophilia: (7) Anemia: (8) Metabolic acidosis: Plan 20 yo male with h/o Stage 3B CKD with Nephrotic syndrome with FSGS, thrombophilia under warfarin, CORTES presented to ED with elevated creatinine number, was referred by PCP office to ED. ED team consulted with nephrology Dr. Woods, who recommends IV fluids an reassess. There is no indication for HD right away. His calcium is pretty low, s/p 2 gm IV Ca gluconate, symptomatic, will recheck Ca tonight before repeating 3rd dose. # ARIANA on CKD 2/2 FSGS - Cr: 19, K: 5 - IV fluid maintenance; 100 ml / hr LR. - CBC/BMP QAM. - Iron studies QAM - Nephrology consulted, recommend EPO 10,000 units today and potential HD catheter placement on Monday and discussed options with patient. #Severe Hypocalcemia 2/2 CKD and vitamin D deficiency - Ca: 4.9/ Ionized Ca: 0.64 - S/P 1 gm Calcium Gluconate X 2 given at ED - Vitamin D severely low, <7 - Recheck Ca and iCa QAM - Continue replenishing Ca and vitamin d as needed - nephrology onboard #Thrombophilia under Coumadin/acute on chronic anemia - H/O superficial VT, no DVT/ PE. - INR: 1.3 - Patient with asymptomatic anemia, Hgb 7. Continue Warfarin, goal INR 2-2.5 - Anemia related to CKD/FSGS, EPO 10,000 units given per nephrology - Recheck INR AM. #HTN - 2/2 to FSGS - D/C OC/ARBs given FSGS/CKD per nephrology - Amlodipine 5 mg PO QAM Dispo: Admit med/surg Tele DVT prophylaxis: Warfarin Code Status: Full Admission and Anticipated Discharge Date Admission Date: January 17, 2025 Supervising Physician Co-Signing Physician Notes I personally examined the patient and verified all pastrana points of history and exam, discussed case, and agree with decision making with Dr Romero no physical complaints. wants to proceed w HD. updated nephrology. had lengthy d/w pt and mom on what to expect vitals noted nad heent nc at mmm breathing unlabored no accessory muscles good effort ESRD - for HD. line placement hopefully tomorrow, then HD thereafter. 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 offered empathy and support follow INR; hold warfarin for now otherwise as above Subjective Kvng Ramos is seen resting comfortably in recliner next to bedside this morning. Patient does not have any acute concerns and denies chest pain, palpitations, SOB, cough, abdominal pain, back pain, fevers, chills, dysuria, hematuria, and fevers/chills. Patient is ambivalent of starting HD and getting a potential catheter on Monday, but expresses understanding of why this will be helpful in preventing/delaying worsening kidney disease. Patient is afebrile and hemodynamically stable. Physical Exam Physical Exam: General: patient resting comfortably, NAD, non-toxic in appearance, answers questions appropriately. Skin: warm, dry, intact HEENT: NC/AT, anicteric sclera, conjunctiva without injection, moist mucus membranes. Heart: +S1/S2, regular, no m/r/g Lungs: equal air entry bilaterally, no rales/rhonchi/wheezes Abd: +BS, soft, NT/ND Ext: warm, no clubbing/cyanosis or edema Neuro: nonfocal, speech intact, no facial droop, moving all extremities. Results & Data Results & Data Vital Signs (Past 12 Hours) Vital Signs Temp Pulse Resp BP Pulse Ox O2 Del Method 01/19/25 07:09 36.9 C 80 18 162/89 H 98 Room Air 01/18/25 21:00 37.0 C 92 H 16 145/80 H 99 Room Air Resident Activity Tracking Resident Involvement: Resident Care Provided Care Provided: Adult Hospital Medicine (2) CKD (chronic kidney disease) Chronic kidney disease stage: stage 5 (GFR < 15), not on chronic dialysis Qualified Code(s): N18.5 - Chronic kidney disease, stage 5
[2025-01-19 09:16] LABS: Albumin Level 2.2 gm/dl (3.4-5.0); BUN Creatinine Ratio 7.2 (10-20); Calcium 5.3 mg/dl (8.6-10.3); Creatinine Clr Calc Pharmacy 7.2 ml/min; Ferritin 204.3 ng/ml (8-388); Phosphorus 9.6 mg/dl (2.5-4.9); Potassium 3.9 mmol/L (3.5-5.1)
[2025-01-19] MEDS: ERGOCALCIFEROL 1250 MCG (50,000 UNITS) CAP PO SCH (09:40)
[2025-01-19] MEDS: CALCIUM CARBONATE 500 MG CHEWABLE TAB PO SCH ×2 (09:40→13:47)
--- NOTE | 2025-01-19 12:49 | Nephrology Progress Note ---
Date of Service January 19, 2025 Assessment & Plan (1) CKD (chronic kidney disease): Plan: CKD V A3. 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 Clinical presentation is now consistent with ESKD. Kvng expressed understanding. He is receptive of TDC placement and initiation of dialysis. Vascular surgery has been consulted. Once we have a schedule for catheter placement, warfarin will be held accordingly. INR 1.7 this AM. I have reached out to Dr. Pacheco regarding coordinating. Case management will be consulted to assist with arrangements for outpatient HD at [facility] under the care of Dr. Guevara. Hepatitis B profile pending. Medications are appropriate for kidney function. Maintain a renal diet. For hyperphosphatemia, start Phoslo 2 tabs with each meal. Labs will be updated tomorrow AM. First dialysis treatment will be coordinated once TDC is secured. (2) FSGS (focal segmental glomerulosclerosis): (3) Hypocalcemia: Plan: Continue calcitriol 1 mcg daily. Continue calcium carbonate 3000 mg daily. Check calcium, ionized calcium, phosphorus, PTH, and albumin tomorrow AM. (4) Anemia: Plan: Epogen 08138 units provided yesterday. Tsat 23% - Venofer 200 mg x 1 provided this AM. (5) Metabolic acidosis: Plan: Continue calcium carbonate. Recheck serum metabolic profile tomorrow AM. (6) Hypertension: Plan: Amlodipine increased to 10 mg daily. Avoid RAASi - OC/ARB for now given advanced CKD. Admission and Anticipated Discharge Date Admission Date: January 17, 2025 Subjective No acute events overnight. Kvng was seen and evaluated with his mother at the bedside this AM. We had a long conversation regarding his kidney dysfunction and goals of care. I also spoke to Dr. Wisdom. Risks/benefits of dialysis were reviewed. Kvng expressed understanding. He would like to move forward with TDC placement and initiation of hemodialysis. Review of Systems Review of Systems: All systems reviewed & are unremarkable except as noted in HPI & below Physical Exam Constitutional: well developed; no acute distress Eyes: no scleral abnormality and no corneal abnormality ENMT: Mouth: no oral mucosal abnormality and oral mucous membranes not dry Neck: normal visual inspection and trachea midline Respiratory: normal respiratory effort Auscultation: lungs clear to auscultation bilaterally Cardiovascular: Rate/Rhythm: regular rate Heart Sounds: normal S1 and normal S2 Extremities: no edema Musculoskeletal: Extremities: no cyanosis and no clubbing Skin: normal turgor; no lesions Neurologic: Motor/Sensory: + asterixis Psychiatric: Orientation: alert and oriented x 3 Results & Data Vital Signs (Past 12 Hours) Vital Signs Temp Pulse Resp BP Pulse Ox O2 Del Method 01/19/25 07:09 36.9 C 80 18 162/89 H 98 Room Air Laboratory Results Laboratory Results - last 24 hr 01/18/25 01/19/25 18:51 06:59 WBC 6.30 6.75 RBC 2.56 L 2.50 L Hgb 7.7 L 7.4 L Hct 21.9 L 21.6 L MCV 85.5 86.4 MCH 30.1 29.6 MCHC 35.2 34.3 RDW Std Deviation 41.9 42.9 RDW Coeff of Juliana 13.3 13.6 Plt Count 119 L 137 MPV 11.0 11.5 Immature Gran % (Auto) 0.3 0.3 Neut % (Auto) 75.7 69.8 Lymph % (Auto) 16.5 20.6 [place] % (Auto) 5.2 5.2 Eos % (Auto) 1.3 3.1 Baso % (Auto) 1.0 1.0 Neut # (Auto) 4.77 4.71 Lymph # (Auto) 1.04 L 1.39 [place] # (Auto) 0.33 0.35 Eos # (Auto) 0.08 0.21 Baso # (Auto) 0.06 0.07 Immature Gran # (Auto) 0.02 0.02 Hypersegmented Neuts 1+ Anisocytosis Present Tear Drop Cells 1+ PT 17.8 H INR 1.7 H Sodium 142 Potassium 3.9 Chloride 111 H Carbon Dioxide 18 L Anion Gap 13 H BUN 133 H Creatinine 18.53 H* D Est Cr Clr Drug Dosing 7.2 eGFR 3.33 BUN/Creatinine Ratio 7.2 L Glucose 95 Calcium 5.3 L* Ionized Calcium 0.73 L* Phosphorus 9.6 H Iron 45 TIBC 195 L Transferrin 139 L Transferrin % Sat 23 Ferritin 204.3 Albumin 2.2 L PTH Intact 857.6 H Hep Bs Antigen Pending Hep Bs Antibody Pending Hep Bs Antibody, Quant Pending Hep B Core IgM Ab Pending PG Care Time/CCT Total # of Minutes Spent Total Time Spent with Patient: Total time spent is greater than 50% in coordination of care (as documented) at patient's floor/unit and/or counseling patient: Coding Level of Care Code 14955 SUB INP/OBS CARE 3/50MIN Diagnoses CKD (chronic kidney disease) N18.5 Chronic kidney disease stage: stage 5 (GFR < 15), not on chronic dialysis FSGS (focal segmental glomerulosclerosis) N05.1 Hypocalcemia E83.51 Anemia D64.9 Metabolic acidosis E87.20 Hypertension I10 (1) CKD (chronic kidney disease) Chronic kidney disease stage: stage 5 (GFR < 15), not on chronic dialysis Qualified Code(s): N18.5 - Chronic kidney disease, stage 5
--- NOTE | 2025-01-19 12:58 | Electrocardiogram Report ---
Test Reason : Blood Pressure : */* mmHG Vent. Rate : 83 BPM Atrial Rate : 83 BPM P-R Int : 146 ms QRS Dur : 84 ms QT Int : 406 ms P-R-T Axes : 72 68 65 degrees QTcB Int : 477 ms Normal sinus rhythm Septal infarct , age undetermined Abnormal ECG When compared with ECG of 03-Sep-2023 21:28, No significant change Confirmed by Jose Lazcano ([id number]) on 01/19/2025 12:58:27 PM Referred By: Harsh Marshall Confirmed By: Jose Lazcano
[2025-01-19] MEDS: IRON SUCROSE 200 MG in SODIUM CHLORIDE 0.9% 100 ML IV ONE (13:51)
[2025-01-19] MEDS: WARFARIN SOD 10 MG TAB PO ONE (14:37)
--- NOTE | 2025-01-19 16:44 | Billing Data ---
Date of Service January 19, 2025 Coding Level of Care Code 70733 SUB INP/OBS CARE
[2025-01-19] MEDS: CALCIUM ACETATE 667 MG CAP/TAB PO SCH (17:31)
[2025-01-20 06:24] LABS: Hematocrit (blood only) 19.6 % (42.0-52.0); Hemoglobin 6.8 g/dl (14.0-18.0); Mean Corpuscular Hemoglobin 29.8 pg (25.0-34.0); Mean Corpuscular Hgb Conc 34.7 g/dL (32.0-36.0); Mean Platelet Volume 11.5 fL (9.4-12.4); Platelet Count 130 K/uL (130-400); RDW Coefficient of Variation 13.5 % (11.5-14.5); RDW Standard Deviation 42.1 fL (36.4-46.3); Red Blood Count 2.28 M/uL (4.70-6.10); White Blood Count 6.07 K/ul (4.8-10.8)
[2025-01-20 06:32] LABS: BUN Creatinine Ratio 6.2 (10-20); Calcium 5.7 mg/dl (8.6-10.3); Creatinine Clr Calc Pharmacy 6.7 ml/min; Potassium 3.8 mmol/L (3.5-5.1)
[2025-01-20 06:42] LABS: INR 2.8 (0.9-1.1); Prothrombin Time 27.3 Seconds (9.0-12.0)
[2025-01-20 06:45] LABS: Basophils # (auto) 0.06 K/uL (0.00-0.20); Eosinophils # (auto) 0.23 K/uL (0.00-0.50); Eosinophils % (auto) 3.8 %; Immature Granulocytes # (auto) 0.01 K/uL (0.01-0.20); Immature Granulocytes % (auto) 0.2 %; Lymphocytes # (auto) 1.61 K/uL (1.20-3.40); Lymphocytes % (auto) 26.5 %; Monocytes # (auto) 0.47 K/uL (0.11-0.59); Monocytes % (auto) 7.7 %; Neutrophils # (auto) 3.69 K/uL (1.40-6.50); Neutrophils % (auto) 60.8 %; Polychromasia 1+; Tear Drop Cells 1+
[2025-01-20] MEDS: amLODIPine BESYLATE 5 MG TAB PO SCH (09:13)
[2025-01-20 09:22] LABS: Hep B Surface Ag with confirm Negative (Negative)
[2025-01-20 09:31] LABS: Hepatitis B Surface Ab Quant < 3.00 mIU/mL (>or=10mIU/mL Immune); Hepatitis B Surface Antibody Non-Immune
--- NOTE | 2025-01-20 10:07 | Nephrology Progress Note ---
Date of Service January 20, 2025 Assessment & Plan (1) CKD (chronic kidney disease): Plan: CKD V A3. 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 Now with ESKD advanced to requiring ELECTRICIAN RECTIFIER MAINTENANCE. Dr. Pacheco has been consulted for TDC placement. He confirmed this will be scheduled for tomorrow. Warfarin has been held in the interim. Once the catheter is secured, first HD treatment will be coordinated. Case management has been consulted to assist with arrangements for outpatient HD at [facility] under the care of Dr. Guevara. Hepatitis B sAb - non- immune. Medications are appropriate for kidney function. Maintain a renal diet. For hyperphosphatemia, continue Phoslo 2 tabs with each meal. Labs will be updated tomorrow AM. (2) FSGS (focal segmental glomerulosclerosis): (3) Hypocalcemia: Plan: Continue calcitriol 1 mcg daily. Continue calcium carbonate 3000 mg daily. Check calcium, ionized calcium, phosphorus, PTH, and albumin tomorrow AM. (4) Anemia: Plan: Epogen 63344 units provided 01/18. Tsat 23% - Venofer 200 mg x 1 provided yesterday and an additional 200 mg provided today. H/H dropped slightly, I would advise rechecking and defer PRBC transfusion (unless vascular would require prior to catheter placement). Kvng reports that he is relatively asymptomatic in terms of his anemia and there has been no signs of active bleeding. (5) Metabolic acidosis: Plan: Continue calcium carbonate. Recheck serum metabolic profile tomorrow AM. (6) Hypertension: Plan: Amlodipine 10 mg daily. Avoid RAASi - OC/ARB for now given advanced CKD. Admission and Anticipated Discharge Date Admission Date: January 17, 2025 Subjective No acute events overnight. Kvng is resting comfortably in bed this AM. He continues to feel well. He denies any shortness of breath, fatigue, weakness. No fluid retention or edema. No melena or hematochezia. I discussed with vascular surgery. TDC placement will be scheduled for tomorrow. Review of Systems Review of Systems: All systems reviewed & are unremarkable except as noted in HPI & below Physical Exam Constitutional: well developed; no acute distress Eyes: no scleral abnormality and no corneal abnormality ENMT: Mouth: no oral mucosal abnormality and oral mucous membranes not dry Neck: normal visual inspection and trachea midline Respiratory: normal respiratory effort Auscultation: lungs clear to auscultation bilaterally Cardiovascular: Rate/Rhythm: regular rate Heart Sounds: normal S1 and normal S2 Extremities: no edema Musculoskeletal: Extremities: no cyanosis and no clubbing Skin: normal turgor; no lesions Neurologic: Motor/Sensory: + asterixis Psychiatric: Orientation: alert and oriented x 3 Results & Data Vital Signs (Past 12 Hours) Vital Signs Temp Pulse Resp BP Pulse Ox O2 Del Method 01/20/25 07:34 37.4 C 85 14 160/84 H 97 Room Air Laboratory Results Laboratory Results - last 24 hr 01/19/25 01/20/25 06:59 05:29 WBC 6.07 RBC 2.28 L Hgb 6.8 L* Hct 19.6 L* MCV 86.0 MCH 29.8 MCHC 34.7 RDW Std Deviation 42.1 RDW Coeff of Juliana 13.5 Plt Count 130 MPV 11.5 Immature Gran % (Auto) 0.2 Neut % (Auto) 60.8 Lymph % (Auto) 26.5 [place] % (Auto) 7.7 Eos % (Auto) 3.8 Baso % (Auto) 1.0 Neut # (Auto) 3.69 Lymph # (Auto) 1.61 [place] # (Auto) 0.47 Eos # (Auto) 0.23 Baso # (Auto) 0.06 Immature Gran # (Auto) 0.01 Polychromasia 1+ Tear Drop Cells 1+ PT 27.3 H INR 2.8 H Sodium 140 Potassium 3.8 Chloride 110 H Carbon Dioxide 18 L Anion Gap 12 H BUN 124 H Creatinine 19.99 H* D Est Cr Clr Drug Dosing 6.7 eGFR 3.04 BUN/Creatinine Ratio 6.2 L Glucose 96 Calcium 5.7 L* Hep Bs Antigen Negative Hep Bs Antibody Non-Immune Hep Bs Antibody, Quant < 3.00 PG Care Time/CCT Total # of Minutes Spent Total Time Spent with Patient: Total time spent is greater than 50% in coordination of care (as documented) at patient's floor/unit and/or counseling patient: Coding Level of Care Code 20502 SUB INP/OBS CARE 3/50MIN Diagnoses CKD (chronic kidney disease) N18.5 Chronic kidney disease stage: stage 5 (GFR < 15), not on chronic dialysis FSGS (focal segmental glomerulosclerosis) N05.1 Hypocalcemia E83.51 Anemia D64.9 Metabolic acidosis E87.20 Hypertension I10 (1) CKD (chronic kidney disease) Chronic kidney disease stage: stage 5 (GFR < 15), not on chronic dialysis Qualified Code(s): N18.5 - Chronic kidney disease, stage 5
--- NOTE | 2025-01-20 10:21 | Consultation ---
Date of Consultation January 20, 2025 Assessment & Plan (1) End stage renal disease: PT with ESRD, now requiring HD per nephrology. Planning on permcath insertion in OR tomorrow. Procedure, risks, benefits, and alternatives discussed with pt by myself at Dr Pacheco's request. Pt expresses understanding and agreement to proceed. Pt requesting deeper anesthesia d/t severe anxiety. History of Present Illness Reason for Consultation: ESRD, need permcath Attending Physician: Ja Wisdom DO History of Present Illness 20 yo m with hx of FSGS, CKD, anxiety, thrombophilia on AC, anemia, HTN, seen in consultation today for permcath for HD initiation. Pt with worsening renal fxn and feeling poorly at home, admitted and renal fxn continues to decline. HD recommended by nephrology. Pt states feeling tired. Denies JUAREZ, fever, chest pain, SOB, abd pain, N/V, rest pain, claudication, other complaints. Allergies Allergy/AdvReac Type Severity Reaction Status Date / Time No Known Allergies Allergy Unknown Verified 01/17/25 18:03 Home Medications Medication Instructions Recorded Confirmed Type losartan 25 mg tablet 25 mg PO DAILY #30 tabs 10/21/24 01/17/25 Rx warfarin 5 mg tablet See Rx Instructions PO DAILY 10/22/24 01/17/25 History hydroxyzine HCl 25 mg tablet 25 mg PO TID PRN anxiety #90 tabs 11/13/24 01/17/25 Rx Patient History Medical History Acute medial meniscus tear of left knee Surgical History S/P left knee arthroscopy H/O hernia repair Family History Mother Diabetes Grandfather (Maternal) Hypertension Other No family history of adverse response to anesthesia Denies family history of Ovarian cancer Prostate cancer Myocardial infarction Breast cancer Lung cancer Stroke Social History Smoking Status: Never smoker Second Hand Exposure: Yes (mom smokes); Do You Dip or Chew Tobacco: No; Hx Alcohol Use: No Hx Substance Use: Yes Substance Use Type Other:: medical card Preferred Language: Sinhala Communication Ability: Effective Visual Impairment: No Limitations Hearing Ability: Normal Automobile Contract Clerk Required: No Beliefs That Will Affect Care: None marital status: Single Current Living Situation: Family Current Living Situation Comment: lives at home with parents current occupational status: employed 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 How many Children do You have: 0 Feels Safe at Home: Yes Childhood Exposure to Second-Hand Smoke: No caffeine: No Dental Care, Regularly: Yes Physical Activity Frequency: 5-6 Times per Week Seatbelt Use: always Sunscreen Use: No Assistive Devices: None Review of Systems Review of Systems: All systems reviewed & are unremarkable except as noted in HPI & below Physical Exam Constitutional: WD/WN, vitals as above cooperative and comfortable; not in distress Neck: trachea midline Respiratory: normal respiratory effort, lungs clear to auscultation Auscultation: + diminished lung sounds Cardiovascular: Rate/Rhythm: regular rate and regular rhythm Vessels: normal peripheral pulses, posterior tibial pulses present, dorsalis pedis pulses present and radial pulses present Extremities: normal capillary refill; no edema Gastrointestinal (Abdomen): Inspection/Auscultation: abdomen normal to inspection and normal bowel sounds Percussion/Palpation: abdomen soft; abdomen nontender Musculoskeletal: no cyanosis or clubbing, extremities motor strength 5/5 Skin: no rashes, warm and dry Neurologic: moves all extremities and awake; no focal motor deficits and not confused Psychiatric: A+Ox3, euthymic affect Results & Data Vital Signs (Past 12 Hours) Vital Signs Temp Pulse Resp BP Pulse Ox O2 Del Method 01/20/25 07:34 37.4 C 85 14 160/84 H 97 Room Air
[2025-01-20] MEDS: IRON SUCROSE 200 MG in SODIUM CHLORIDE 0.9% 100 ML IV ONE (10:59)
--- NOTE | 2025-01-20 12:37 | Hospitalist Progress Note ---
Date of Service January 20, 2025 Assessment & Plan (1) Hypocalcemia: (2) CKD (chronic kidney disease): (3) FSGS (focal segmental glomerulosclerosis): (4) ARIANA (acute kidney injury): (5) Generalized anxiety disorder: (6) Thrombophilia: (7) Anemia: (8) Metabolic acidosis: Plan 20 yo male with h/o Stage 3B CKD with Nephrotic syndrome with FSGS, thrombophilia under warfarin, CORTES presented to ED with elevated creatinine number, was referred by PCP office to ED. ED team consulted with nephrology Dr. Woods, who recommends IV fluids an reassess. There is no indication for HD right away. His calcium is pretty low, s/p 2 gm IV Ca gluconate, symptomatic, will recheck Ca tonight before repeating 3rd dose. # ESRD 2/2 FSGS - for cath placement and initiation of HD - eventually would anticipate he would be an excellent transplant candidate #Severe Hypocalcemia 2/2 CKD and vitamin D deficiency - replacing vit D and calcium #Thrombophilia under Coumadin/acute on chronic anemia - H/O superficial VT, no DVT/ PE. - on coumadin, currently being held for procedure #HTN - 2/2 to FSGS - D/C OC/ARBs given FSGS/CKD per nephrology - Amlodipine 5 mg PO QAM #anemia - related to ESRD. getting iron, nephro will be giving EPO. no clear need for transfusion currently - no overt anemia sx and hemodynamically stable. follow. Dispo: stable on medical; anticipate HD cath placement/initial treatment(s) of HD - then home w close and ongoing outpt HD and outpt f/u and eventual transplant referral DVT prophylaxis: Warfarin Code Status: Full Admission and Anticipated Discharge Date Admission Date: January 17, 2025 Subjective Feeling okay. Anxious about everything that needs to happen, but also excepting an understanding what is happening and why. No acute complaints today. Input from nephrology and vascular surgery both greatly appreciated. Review of Systems Review of Systems: All systems reviewed & are unremarkable except as noted in HPI & below Physical Exam Physical Exam: In general he is awake alert oriented pleasant no distress. HEENT normocephalic atraumatic mucous membranes moist. Breathing unlabored no accessory muscle use good effort. Skin without rashes pallor or icterus. Neuro without focal deficits Results & Data Results & Data Vital Signs (Past 12 Hours) Vital Signs Temp Pulse Resp BP Pulse Ox O2 Del Method 01/20/25 12:18 98.8 F 85 20 165/99 H 97 Room Air 01/20/25 11:01 98.2 F 83 20 161/109 H 98 Room Air 01/20/25 07:34 99.3 F 85 14 160/84 H 97 Room Air PG Care Time/CCT Total # of Minutes Spent Total Time Spent with Patient: Total time spent is greater than 50% in coordination of care (as documented) at patient's floor/unit and/or counseling patient: Coding Level of Care Code 37002 SUB INP/OBS CARE 3/50MIN Diagnoses Hypocalcemia E83.51 CKD (chronic kidney disease) N18.5 Chronic kidney disease stage: stage 5 (GFR < 15), not on chronic dialysis FSGS (focal segmental glomerulosclerosis) N05.1 ARIANA (acute kidney injury) N17.9 Generalized anxiety disorder F41.1 Thrombophilia D68.59 Anemia D64.9 Metabolic acidosis E87.20 (2) CKD (chronic kidney disease) Chronic kidney disease stage: stage 5 (GFR < 15), not on chronic dialysis Qualified Code(s): N18.5 - Chronic kidney disease, stage 5
[2025-01-21 03:43] LABS: Basophils # (auto) 0.09 K/uL (0.00-0.20); Basophils % (auto) 1.1 %; Eosinophils # (auto) 0.26 K/uL (0.00-0.50); Eosinophils % (auto) 3.3 %; Hematocrit (blood only) 22.5 % (42.0-52.0); Hemoglobin 7.9 g/dl (14.0-18.0); Immature Granulocytes # (auto) 0.02 K/uL (0.01-0.20); Immature Granulocytes % (auto) 0.3 %; Lymphocytes # (auto) 1.55 K/uL (1.20-3.40); Lymphocytes % (auto) 19.5 %; Mean Corpuscular Hemoglobin 30.3 pg (25.0-34.0); Mean Corpuscular Hgb Conc 35.1 g/dL (32.0-36.0); Mean Corpuscular Volume 86.2 fL (80.0-100.0); Mean Platelet Volume 10.9 fL (9.4-12.4); Monocytes % (auto) 7.5 %; Neutrophils # (auto) 5.44 K/uL (1.40-6.50); Neutrophils % (auto) 68.3 %; Platelet Count 142 K/uL (130-400); RDW Coefficient of Variation 13.8 % (11.5-14.5); Red Blood Count 2.61 M/uL (4.70-6.10); White Blood Count 7.96 K/ul (4.8-10.8)
[2025-01-21 04:02] LABS: BUN Creatinine Ratio 5.7 (10-20); Creatinine Clr Calc Pharmacy 6.4 ml/min; Potassium 3.8 mmol/L (3.5-5.1)
[2025-01-21 04:16] LABS: RBC Morphology Unremarkable
[2025-01-21 04:23] LABS: INR 2.5 (0.9-1.1); Prothrombin Time 25.4 Seconds (9.0-12.0)
--- NOTE | 2025-01-21 07:31 | History & Physical Bridge Note ---
Date of Service January 21, 2025 History & Physical Bridge Note Patient for permcath insertion today. I have discussed the risks options and benefits of the procedure with the patient. The patient understands the risks options and benefits and agrees to the procedure. I have examined the patient, reviewed the History & Physical and in the interval since the performance of the History & Physical I have noted the following changes of clinical significance: no changes noted
--- NOTE | 2025-01-21 10:25 | Nephrology Progress Note ---
Date of Service January 21, 2025 Assessment & Plan (1) CKD (chronic kidney disease): Plan: CKD V A3 due to biopsy proven primary FSGS. 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 TDC to be placed by Dr. Pacheco today. Once the catheter is secured, first HD treatment will be coordinated. Orders have been entered into the EHR and reviewed with the sack cleaner. Second HD treatment will be planned for tomorrow. Case management has been consulted to assist with arrangements for outpatient HD at [facility] under the care of Dr. Guevara. Hepatitis B sAb - non- immune. Medications are appropriate for kidney function. Maintain a renal diet. For hyperphosphatemia, continue Phoslo 2 tabs with each meal. Labs will be updated tomorrow AM. (2) FSGS (focal segmental glomerulosclerosis): (3) Hypocalcemia: Plan: Continue calcitriol 1 mcg daily. Continue calcium carbonate 3000 mg daily. Check calcium tomorrow AM. (4) Anemia: Plan: Epogen 62038 units provided 01/18. Tsat 23% - Venofer 200 mg x 2 provided. H/H stable. Kvng reports that he is relatively asymptomatic in terms of his anemia and there has been no signs of active bleeding. (5) Metabolic acidosis: Plan: Continue calcium carbonate. Recheck serum metabolic profile tomorrow AM. (6) Hypertension: Plan: Amlodipine 10 mg daily. Avoid RAASi - OC/ARB for now given advanced CKD. Admission and Anticipated Discharge Date Admission Date: January 17, 2025 Subjective No acute events overnight. Kvng was seen and evaluated with his mother at the bedside this AM. He denies fluid retention or edema. Urine output remains very good. Appetite is good. Review of Systems Review of Systems: All systems reviewed & are unremarkable except as noted in HPI & below Physical Exam Constitutional: well developed; no acute distress Eyes: no scleral abnormality and no corneal abnormality ENMT: Mouth: no oral mucosal abnormality and oral mucous membranes not dry Neck: normal visual inspection and trachea midline Respiratory: normal respiratory effort Auscultation: lungs clear to auscultation bilaterally Cardiovascular: Rate/Rhythm: regular rate Heart Sounds: normal S1 and normal S2 Extremities: no edema Musculoskeletal: Extremities: no cyanosis and no clubbing Skin: normal turgor; no lesions Neurologic: Motor/Sensory: + asterixis Psychiatric: Orientation: alert and oriented x 3 Results & Data Vital Signs (Past 12 Hours) Vital Signs Temp Pulse Resp BP Pulse Ox O2 Del Method 01/21/25 07:08 36.6 C 80 16 148/81 H 97 Room Air Laboratory Results Laboratory Results - last 24 hr 01/21/25 03:23 WBC 7.96 RBC 2.61 L Hgb 7.9 L Hct 22.5 L MCV 86.2 MCH 30.3 MCHC 35.1 RDW Std Deviation 43.0 RDW Coeff of Juliana 13.8 Plt Count 142 MPV 10.9 Immature Gran % (Auto) 0.3 Neut % (Auto) 68.3 Lymph % (Auto) 19.5 [place] % (Auto) 7.5 Eos % (Auto) 3.3 Baso % (Auto) 1.1 Neut # (Auto) 5.44 Lymph # (Auto) 1.55 [place] # (Auto) 0.60 H Eos # (Auto) 0.26 Baso # (Auto) 0.09 Immature Gran # (Auto) 0.02 RBC Morphology Unremarkable PT 25.4 H INR 2.5 H Sodium 139 Potassium 3.8 Chloride 108 H Carbon Dioxide 19 L Anion Gap 12 H BUN 120 H Creatinine 20.87 H* D Est Cr Clr Drug Dosing 6.4 eGFR 2.88 BUN/Creatinine Ratio 5.7 L Glucose 96 Calcium 6.0 L PG Care Time/CCT Total # of Minutes Spent Total Time Spent with Patient: Total time spent is greater than 50% in coordination of care (as documented) at patient's floor/unit and/or counseling patient: Coding Level of Care Code 26880 SUB INP/OBS CARE 3/50MIN Diagnoses CKD (chronic kidney disease) N18.5 Chronic kidney disease stage: stage 5 (GFR < 15), not on chronic dialysis FSGS (focal segmental glomerulosclerosis) N05.1 Hypocalcemia E83.51 Anemia D64.9 Metabolic acidosis E87.20 Hypertension I10 (1) CKD (chronic kidney disease) Chronic kidney disease stage: stage 5 (GFR < 15), not on chronic dialysis Qualified Code(s): N18.5 - Chronic kidney disease, stage 5
[2025-01-21] MEDS ORDERED: fentaNYL citrate PF 100 MCG/2 ML VIAL ONE (10:43)
[2025-01-21] MEDS ORDERED: PROPOFOL IV EMULSION 10 MG/ML 20 ML VIAL IV ONE ×2 (10:43→13:24)
[2025-01-21] MEDS ORDERED: ONDANSETRON INJ 2 MG/ML 2 ML VIAL ONE (10:43)
[2025-01-21] MEDS ORDERED: LIDOCAINE 2% 2 ML VIAL/AMP(20MG/ML) INFIL ONE (10:43)
[2025-01-21] MEDS ORDERED: MIDAZOLAM HCL 1 MG/ML 2ML VIAL ONE (10:43)
[2025-01-21] MEDS ORDERED: HYDROmorphone INJ 1 MG/ML SYRINGE IV PRN (10:53)
[2025-01-21] MEDS ORDERED: ONDANSETRON INJ 2 MG/ML 2 ML VIAL IV PRN (10:53)
[2025-01-21] MEDS ORDERED: ePHEDrine sulfate 50 MG/ML AMP IV PRN (10:53)
[2025-01-21] MEDS ORDERED: ATROPINE SULFATE 0.1 MG/ML 10ML SYR IV PRN (10:53)
[2025-01-21] MEDS ORDERED: PROMETHAZINE HCL 6.25 MG in SODIUM CHLORIDE 0.9% 50 ML IV PRN (10:53)
--- NOTE | 2025-01-21 10:57 | Anesthesiology Consultation ---
Date of Service January 21, 2025 Assessment & Plan (1) Encounter for pre-operative examination: Chart Review Chart Review: Acceptable Risk for Surgery and Patient NOT seen in Pre Admission Testing Consults Requested none History Surgery Operation Date: 01/21/25 11:30 Proposed Procedures p Perm Catheter Insertion - Andres Pacheco MD Height/Weight Height: 6 ft 1 in Weight: 82.9 kg Allergies Allergy/AdvReac Type Severity Reaction Status Date / Time No Known Allergies Allergy Unknown Verified 01/17/25 18:03 Medications Home Medications Medication Instructions Recorded Confirmed Last Taken losartan 25 mg tablet 25 mg PO DAILY #30 tabs 10/21/24 01/17/25 01/17/25 warfarin 5 mg tablet See Rx Instructions PO DAILY 10/22/24 01/17/25 01/16/25 hydroxyzine HCl 25 mg tablet 25 mg PO TID PRN anxiety #90 tabs 11/13/24 01/17/25 Unknown Active Medications Generic Name Dose Route Start Last Admin Trade Name Freq PRN Reason Stop Dose Admin Amlodipine Besylate 10 mg 01/20/25 09:00 01/21/25 08:03 Amlodipine Besylate 5 Mg Tab PO 02/19/25 08:59 10 mg QAM MOOSE Administration Calcitriol 1 mcg 01/18/25 10:45 01/21/25 08:02 Calcitriol 0.25 Mcg Capsule PO 02/17/25 10:44 1 mcg QAM MOOSE Administration Calcium Acetate 1,334 mg 01/19/25 17:00 01/21/25 08:03 Calcium Acetate 667 Mg Cap/Tab PO 02/18/25 16:59 1,334 mg TIDM MOOSE Administration Calcium Carbonate 1,000 mg 01/19/25 14:00 01/21/25 08:03 Calcium Carbonate 500 Mg Chewable Tab PO 02/18/25 08:59 1,000 mg DAILY@1000,1400,2100 MOOSE Administration Ergocalciferol 1,250 mcg 01/19/25 09:00 01/19/25 09:40 Ergocalciferol 1250 Mcg (50,000 Units) Cap PO 02/18/25 08:59 1,250 mcg Christian@0900 MOOSE Administration Vitamin D 125 mcg 01/18/25 09:00 01/21/25 08:03 Cholecalciferol 125 Mcg (5,000 Units) Tab PO 02/17/25 08:59 125 mcg QAM MOOSE Administration NPO Date Last Intake of Fluids: 01/21/25 Time Last Intake of Fluids: 07:58 Last Intake of Fluids Comment: sip with am meds Date Last Intake of Solids: 01/20/25 Time Last Intake of Solids: 20:00 Past Medical History Medical History (Updated 01/21/25 @ 10:58 by Yfn Murphy MD) Encounter for pre-operative examination End stage renal disease CKD (chronic kidney disease) Hypertension Warfarin anticoagulation Acute medial meniscus tear of left knee Exercise / Class Metabolic Activity II 4-5 Yardwork/Stairs/Walk up hill Past Family History Family History Mother Diabetes Grandfather (Maternal) Hypertension Other No family history of adverse response to anesthesia Denies family history of Ovarian cancer Prostate cancer Myocardial infarction Breast cancer Lung cancer Stroke Past Surgical History Surgical History S/P left knee arthroscopy H/O hernia repair Past Anesthesia History No Hx of Anesthesia Complications and No Family Hx of Anesthesia Complications Social History Smoking Status: Never smoker Do You Dip or Chew Tobacco: No Hx Alcohol Use: No Hx Substance Use: Yes substance use type: marijuana Substance Use Type Other:: medical card Physical Exam Vital Signs Last Vital Signs Temp 36.6 C 01/21/25 07:08 Pulse 80 01/21/25 07:08 Resp 16 01/21/25 07:08 BP 148/81 H 01/21/25 07:08 Pulse Ox 97 01/21/25 07:08 O2 Del Method Room Air 01/21/25 07:08 Testing Laboratory Results 01/21/25 03:23 01/21/25 03:23 PT 25.4 Seconds (9.0-12.0) H 01/21/25 03:23 INR 2.5 (0.9-1.1) H 01/21/25 03:23 Urine Color Yellow 01/17/25 16:45 Urine Appearance Clear (Clear) 01/17/25 16:45 Urine pH 6.0 (4.5-7.5) 01/17/25 16:45 Ur Specific [place] 1.014 (1.000-1.030) 01/17/25 16:45 Urine Protein 4+ (Negative) H 01/17/25 16:45 Urine Glucose (UA) 1+ (Negative) H 01/17/25 16:45 Urine Ketones Negative (Negative) 01/17/25 16:45 Urine Nitrite Negative (Negative) 01/17/25 16:45 Ur Leukocyte Esterase Negative (Negative) 01/17/25 16:45 Urine WBC (Auto) 6-10 /hpf (0-5) H 01/17/25 16:45 Urine RBC (Auto) 11-20 /hpf (0-2) H 01/17/25 16:45 U Hyaline Cast (Auto) 0-2 /lpf (0-2) 01/17/25 16:45 U Epithel Cells (Auto) 0-2 /hpf (0-2) 01/17/25 16:45 Urine Bacteria (Auto) None Seen (None Seen) 01/17/25 16:45
[2025-01-21] MEDS ORDERED: METOCLOPRAMIDE HCL INJ 5 MG/ML 2 ML VIAL ONE (12:27)
[2025-01-21] MEDS ORDERED: DEXAMETHASONE SOD INJ 4 MG/ML VIAL ONE (12:27)
[2025-01-21] MEDS ORDERED: SCOPOLAMINE 1 MG/72 HR TDSY PATCH TD ONE (12:30)
[2025-01-21] MEDS ORDERED: ACETAMINOPHEN 1000 MG/100 ML IV IV ONE (12:30)
[2025-01-21] MEDS ORDERED: ceFAZolin 330 MG/ML 1 GM VIAL ONE (13:16)
--- NOTE | 2025-01-21 13:30 | Post Operative Brief Note ---
Immediate Post Op Note Date of Surgery January 21, 2025 Pre & Post Diagnosis Operation Date: 01/21/25 11:30 Pre-Op Diagnosis: ARIANA Post-Op Diagnosis: ARIANA I identified the patient and participated in the time-out.: Yes Procedure Operation Date: 01/21/25 11:30 Actual Procedures p Insertion of Perm Cath, Right Jugular Venous Approach, Ultrasound Localization of the Right Internal Jugular Vein, Fluoroscopy for Positioning. (Right) - Andres Pacheco MD Surgeon Andres Pacheco MD Sheet Metal Welder MD [place] Estimated Blood Loss 0 Findings Consistent with Post-Op Diagnosis Anesthesia Type General Complications none Disposition Accompanied Patient To Recovery: No Disposition: Recovery Room
--- NOTE | 2025-01-21 13:31 | Operative Report ---
Post Operative Report Pre & Post Diagnosis Operation Date: 01/21/25 11:30 Pre-Op Diagnosis: ARIAAN Post-Op Diagnosis: ARIANA I identified the patient and participated in the time-out.: Yes Procedure Operation Date: 01/21/25 11:30 Actual Procedures p Insertion of Perm Cath, Right Jugular Venous Approach, Ultrasound Localization of the Right Internal Jugular Vein, Fluoroscopy for Positioning. (Right) - Andres Pacheco MD Surgeon Andres Pacheco MD Store Group Manager Prince Campos MD Estimated Blood Loss 5 Findings Consistent with Post-Op Diagnosis Catheter in good position in internal jugular vein and SVC. Flushed easily Specimens None Anesthesia Type General Complications None Disposition Accompanied Patient To Recovery: Yes Indications Kvng Ramos is a 20 year old male with renal failure and ARIANA in need of dialysis access. After discussion of the procedure, risks and benefits, he elected to proceed with placement of a tunneled dialysis line. Description of Procedure Patient was taken to the angio suite and placed in the supine position. He was placed under general anesthesia. 2g Ancef were given. Time-out was performed verifying correct patient, procedure, and laterality. The right side of the neck and chest wall were prepped and draped in a sterile manner. Ultrasound was then used to locate the right internal jugular vein. The vein compressed easily, had no filing defects, and was patent. The vein was then punctured under direct ultrasound imaging. A guidewire was then passed centrally under fluoroscopic imaging. A stab wound was then made in the anterior chest wall and a 19 cm permcath was passed from the stab wound on the chest wall to the puncture site on the neck. The puncture site was then dilated till the 14Fr peel away sheath was inserted. The permcath was then inserted through the sheath to a central position in the distal superior vena cava. The peel away sheath was then removed. The catheter was then sutured in place using nylon sutures. The puncture was then closed using a 4-0 Vicryl subcuticular suture. Dermabond was used for a dressing on the puncture site. Both ports aspirated and flushed easily and were then packed with heparin. A sterile dressing was applied to the catheter. The patient left the angio suite in good condition and tolerated the procedure well. Dr. Pacheco was present and scrubbed for the entire procedure. I attest to the content of the Intraoperative Record and any orders documented therein. Any exceptions are noted below. Supervising Physician Co-Signing Physician Notes Andres Pacheco MD
[2025-01-21] MEDS: fentaNYL citrate PF 100 MCG/2 ML VIAL IV PRN (13:59)
--- NOTE | 2025-01-21 14:15 | Anesthesiology Progress Note ---
Date of Service January 21, 2025 Anesthesia Post Procedure Vital Signs Vital Signs: Temp Pulse Pulse Resp BP Pulse Ox O2 Del Method 01/21/25 11:11 36.6 C 105 H 20 169/101 H 98 Room Air 01/21/25 07:08 36.6 C 80 16 148/81 H 97 Room Air 01/20/25 14:49 36.9 C 83 18 176/84 H 95 Room Air Pain Intensity Abdomen: Pain Intensity: 5 Transfer of Care Handoff Completed per policy Notes Mental Status: alert / awake / arousable and participated in evaluation Patient Amnestic to Procedure: Yes Nausea / Vomiting: adequately controlled Pain: adequately controlled Airway Patency, RR, SpO2: stable & adequate BP & HR: stable & adequate Hydration State: stable & adequate Anesthetic Complications: no major complications apparent and Pt Satisfied with anesthetic care
--- NOTE | 2025-01-21 15:50 | Hospitalist Progress Note ---
Date of Service January 21, 2025 Assessment & Plan (1) Hypocalcemia: Plan: Continue replacement therapy. Serial labs (2) CKD (chronic kidney disease): Plan: The patient unfortunately has progressed to end-stage renal disease. Permacath was placed today, January 21. Hemodialysis will commence per nephrology orders. (3) FSGS (focal segmental glomerulosclerosis): Plan: This is the cause of the end-stage renal disease. Appreciate nephrology consultation recommendations (4) Generalized anxiety disorder: Plan: Stable. Continue current medical management (5) Thrombophilia: Plan: Coumadin currently on hold due to placement of permacath. This will be restarted again tomorrow, January 22 (6) Anemia: Plan: Chronic. Due to end-stage renal disease. No acute blood loss Plan Hopeful discharge to home tomorrow, January 22 Admission and Anticipated Discharge Date Admission Date: January 17, 2025 Subjective Alert and oriented. No distress. The patient was seen earlier today before the permacath was inserted which apparently was uneventful. Coumadin is currently on hold. INR today, January 21, was 2.5. BUN and creatinine are markedly elevated but fortunately the patient is asymptomatic. Appreciate nephrology consultation and recommendations. Review of Systems 2 Review of Systems: Constitutionalno fever or chills ENTno blurred vision, no double vision, no epistaxis, no sore throat Respiratoryno cough, no wheezing, no shortness of breath Cardiacno palpitations, no chest pain, no syncope Monserrat nausea, vomiting, diarrhea, melena, hematochezia GUno urinary retention, no urinary incontinence, no dysuria, no hematuria Musculoskeletalno joint pain, no muscle tenderness Skinno bruising, no rashes, no pruritus Neurono isolated weakness, no paresthesia, no weakness Psychno depression, no anxiety Physical Exam 2 Physical Exam: General-alert and oriented x3, no fever, no chills HEENT-head atraumatic and normocephalic, pupils equal and reactive to light, extraocular muscles intact Neck-no lymphadenopathy or thyromegaly, trachea midline Chest-clear to auscultation. No rales, wheezing or rhonchi Cardiac-regular rate and rhythm, normal S1 and S2 Abdomen-normal bowel sounds, no hepatosplenomegaly Extremities-no cyanosis, clubbing, or edema Neuro-cranial nerves II through XII intact, motor and sensory function within normal limits, strength symmetrical, no focal deficits Psych-normal affect, normal mood Results & Data Results & Data Vital Signs (Past 12 Hours) Vital Signs Temp Pulse Pulse Pulse Pulse Resp BP 01/21/25 15:01 78 144/71 H 01/21/25 14:56 36.7 C 75 01/21/25 14:35 75 12 01/21/25 14:25 75 14 01/21/25 14:15 75 20 01/21/25 14:05 36.9 C 72 14 01/21/25 13:55 76 12 01/21/25 13:45 78 17 01/21/25 13:39 36.8 C 75 17 01/21/25 11:11 36.6 C 105 H 20 01/21/25 07:08 36.6 C 80 16 BP Pulse Ox O2 Del Method O2 Flow Rate 01/21/25 15:01 01/21/25 14:56 01/21/25 14:35 133/70 93 Room Air 01/21/25 14:25 123/72 95 Room Air 01/21/25 14:15 143/62 H 94 Room Air 01/21/25 14:05 122/67 93 Room Air 01/21/25 13:55 141/66 H 95 Room Air 01/21/25 13:45 123/62 95 Room Air 01/21/25 13:39 119/56 L 97 Oxymask 8 01/21/25 11:11 169/101 H 98 Room Air 01/21/25 07:08 148/81 H 97 Room Air Laboratory Results 01/21/25 03:23 01/21/25 03:23 PG Care Time/CCT Total # of Minutes Spent Total Time Spent with Patient: Total time spent is greater than 50% in coordination of care (as documented) at patient's floor/unit and/or counseling patient: Coding Level of Care Code 76150 SUB INP/OBS CARE 2/35MIN Diagnoses Hypocalcemia E83.51 CKD (chronic kidney disease) N18.5 Chronic kidney disease stage: stage 5 (GFR < 15), not on chronic dialysis FSGS (focal segmental glomerulosclerosis) N05.1 Generalized anxiety disorder F41.1 Thrombophilia D68.59 Anemia D64.9 (2) CKD (chronic kidney disease) Chronic kidney disease stage: stage 5 (GFR < 15), not on chronic dialysis Qualified Code(s): N18.5 - Chronic kidney disease, stage 5
[2025-01-21] MEDS: HEPARIN SOD (PORCINE) 5,000 UNITS/ML VIAL ONE (17:22)
[2025-01-21] MEDS: LIDOCAINE 1% LOCAL 20 ML VIAL ONE (17:22)
[2025-01-21] MEDS: ceFAZolin 2000MG 2,000 MG/15 ML SYR IV ONE (17:23)
[2025-01-21] MEDS: FAMOTIDINE/PF 20 MG/2 ML VIAL IV ONE (17:23)
[2025-01-21] MEDS: traMADol HCL 50 MG TABLET PO STA (17:38)
[2025-01-21] MEDS ORDERED: ACETAMINOPHEN 325 MG TAB PO PRN (18:00)
[2025-01-21] MEDS: ONDANSETRON INJ 2 MG/ML 2 ML VIAL IV PRN (20:09)
[2025-01-21] MEDS ORDERED: traMADol HCL 50 MG TABLET PO PRN (21:00)
[2025-01-22 00:36] VITALS: RESP 14
[2025-01-22 07:32] VITALS: O2SAT 98
[2025-01-22 07:56] LABS: Hematocrit (blood only) 19.4 % (42.0-52.0); Hemoglobin 6.8 g/dl (14.0-18.0); Mean Corpuscular Hemoglobin 30.4 pg (25.0-34.0); Mean Corpuscular Hgb Conc 35.1 g/dL (32.0-36.0); Mean Corpuscular Volume 86.6 fL (80.0-100.0); Mean Platelet Volume 11.5 fL (9.4-12.4); Platelet Count 144 K/uL (130-400); RDW Coefficient of Variation 13.8 % (11.5-14.5); RDW Standard Deviation 43.4 fL (36.4-46.3); Red Blood Count 2.24 M/uL (4.70-6.10); White Blood Count 6.39 K/ul (4.8-10.8)
[2025-01-22 08:06] LABS: Anisocytosis Present; Basophils # (auto) 0.03 K/uL (0.00-0.20); Basophils % (auto) 0.5 %; Eosinophils # (auto) 0.02 K/uL (0.00-0.50); Eosinophils % (auto) 0.3 %; Immature Granulocytes # (auto) 0.03 K/uL (0.01-0.20); Immature Granulocytes % (auto) 0.5 %; Lymphocytes % (auto) 12.5 %; Monocytes # (auto) 0.44 K/uL (0.11-0.59); Monocytes % (auto) 6.9 %; Neutrophils # (auto) 5.07 K/uL (1.40-6.50); Neutrophils % (auto) 79.3 %; Polychromasia 1+; Tear Drop Cells 1+
[2025-01-22 08:23] LABS: Albumin Level 2.3 gm/dl (3.4-5.0); BUN Creatinine Ratio 5.2 (10-20); Calcium 6.6 mg/dl (8.6-10.3); Creatinine Clr Calc Pharmacy 7.7 ml/min; Phosphorus 8.7 mg/dl (2.5-4.9); Potassium 4.3 mmol/L (3.5-5.1)
--- NOTE | 2025-01-22 10:00 | Discharge Summary ---
Discharge Summary Date of Service January 22, 2025 Principal Dx & Hospital Course #1 = Principal Diagnosis (1) Hypocalcemia: Continue replacement therapy. Serial labs (2) CKD (chronic kidney disease): The patient unfortunately has progressed to end-stage renal disease. Permacath was placed on January 21. Hemodialysis is underway now and he will be discharged later today, January 22. He is already set up for hemodialysis to continue as an outpatient tomorrow, January 23 (3) FSGS (focal segmental glomerulosclerosis): This is the cause of the end-stage renal disease. Appreciate nephrology consultation recommendations (4) Generalized anxiety disorder: Stable. Continue current medical management (5) Thrombophilia: Coumadin was held due to placement of permacath. This will be restarted at discharge (6) Anemia: Chronic. Due to end-stage renal disease. No acute blood loss Plan Home today after dialysis is completed, January 22. He will continue with dialysis as an outpatient starting tomorrow, january. New medications include amlodipine, PhosLo, Tums, Rocaltrol, vitamin D2 and vitamin D3. Prescriptions have been sent to his pharmacy. Admission HPI Per Admitting Provider 20 yo male with h/o Stage 3B CKD with Nephrotic syndrome with FSGS, thrombophilia under warfarin, CORTES presented tp ED with deranged creatinine. He was doing his regular labs today and PCP office informed him to go to ED. Does not endorse swelling anywhere in body, no change in urine output that he notices. He had presented with body swelling when he initially had kidney injury on 2021. He gives h/o having more frequent muscle cramps of extremity, mostly in legs, in night time in last 1 month. He mentions he has decreased appetite from baseline but no nausea or vomiting or No distension of belly, no flank pain, no CP, no SOB. No obstructive symptoms of urine, no fever, URI sx, no trauma, exposure to sick contact. Gives h/o passing out once 2 weeks ago when he was out in a concert, no abnormal body movement, no muscle weakness, no vomiting, thinks it was probably because of excessive heat in mass of people. No recurrent LOC/passing put after that. His INR tested on PCP's office was in range of 8 two days back, hence warfarin was on hold, was planned to start fro, today from Coumadin clinic. Endorses h/o superficial thrombophlebitis following an IV, however no DVT or PE. Family: Uncle has h/o blood issue, pretty severe he says, not sure what it is, though. No 1st degree family history. PMH: reviewed Drug and Allergy : reviewed Discharge Exam General-alert and oriented x3, no fever, no chills HEENT-head atraumatic and normocephalic, pupils equal and reactive to light, extraocular muscles intact Neck-no lymphadenopathy or thyromegaly, trachea midline Chest-clear to auscultation. 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 New prescriptions include amlodipine for better blood pressure control. PhosLo, Tums, Rocaltrol, vitamin D2, and vitamin D3 to help with low calcium. Prescriptions have been sent to your pharmacy. Pending Studies at Discharge: No Stand-Alone Forms: My [facility], Smoking Cessation Medications and DC Order Prescriptions: New amlodipine [Norvasc] 5 mg Tablet 10 mg PO QAM Qty: 30 0RF calcium carbonate [Tums] 200 mg calcium (500 mg) Tablet,Chewable 1,000 mg PO DAILY@1000,1400,2100 Qty: 90 0RF calcium acetate(phosphat bind) 667 mg Capsule 1,334 mg PO TIDM Qty: 90 0RF ergocalciferol (vitamin D2) 1,250 mcg (50,000 unit) Capsule 1,250 mcg PO Christian@0900 Qty: 30 0RF calcitriol 0.25 mcg Capsule 1 mcg PO QAM Qty: 30 0RF cholecalciferol (vitamin D3) 125 mcg (5,000 unit) Tablet 125 mcg PO QAM Qty: 30 0RF Continued warfarin 5 mg tablet See Rx Instructions PO DAILY Rx Instructions: TAKES AT HS. 0 mg every Monday, 10mg x 6 days or UD per [facility] orally daily; hydroxyzine HCl 25 mg tablet 25 mg PO TID PRN (Reason: anxiety) Qty: 90 1RF losartan 25 mg tablet 25 mg PO DAILY Qty: 30 2RF Discharge Orders: Discharge Order (Routine); Ordered 01/22/25 Ordered By: Sher Vega Admission Data Admit Date/Time: 01/17/25 19:02 Attending Provider: Sher Vega Admit Provider: Kathe Brantley Primary Care Provider: Harsh Marshall Other Providers: Branden Braxton; Chavez Bonner; Elsie Guevara; Andriy Woods; Ramila Medellin; Andres Pacheco Hospital Stay Data Consultations 01/17/25 18:02 ED Decision to Admit Stat 01/17/25 19:02 Consult Nephrology Routine 01/19/25 12:59 Consult Vascular Surgery Routine Procedures Performed Operation Date: 01/21/25 11:30 Actual Procedures p Insertion of Perm Cath, Right Jugular Venous Approach, Ultrasound Localization of the Right Internal Jugular Vein, Fluoroscopy for Positioning. (Right) - Andres Pacheco MD Diagnostic Imagining Performed 01/21/25 07:14 EV cvc insrt tunnel wo prt/professor of education Routine US EV guide vascular access Routine Pending Results Patient Have Any Pending Studies at Discharge: No Discharge Instructions Given to Patient (Per Discharging Provider) Continue outpatient dialysis at 7 AM tomorrow, January 23, at [facility] in [place]. New prescriptions include amlodipine for better blood pressure control. PhosLo, Tums, Rocaltrol, vitamin D2, and vitamin D3 to help with low calcium. Prescriptions have been sent to your pharmacy. Total Time Total Time Spent Total Time Spent (In Minutes): 45 minutes Coding Level of Care Code 65076 INP/OBS DISCH >30 MIN Diagnoses Hypocalcemia E83.51 CKD (chronic kidney disease) N18.5 Chronic kidney disease stage: stage 5 (GFR < 15), not on chronic dialysis FSGS (focal segmental glomerulosclerosis) N05.1 Generalized anxiety disorder F41.1 Thrombophilia D68.59 Anemia D64.9
[2025-01-22] MEDS: IRON SUCROSE 200 MG in SODIUM CHLORIDE 0.9% 100 ML IV ONE (10:03)
[2025-01-22] MEDS: EPOETIN ALFA 10,000 UNITS/ML VIAL IV ONE (10:04)
--- NOTE | 2025-01-22 10:56 | Nephrology Progress Note ---
Date of Service January 22, 2025 Assessment & Plan (1) CKD (chronic kidney disease): Plan: ESKD due to biopsy proven primary FSGS. TDC placed by Dr. Pacheco 01/21. First HD completed 01/21. Second treatment is being provided today. Orders were entered into the EHR and reviewed with the claims director. [facility]. If Kvng tolerates HD well this AM, he will be discharged home. I discussed the plan of care with Dr. Vega. Kvng is scheduled for HD at [facility] tomorrow AM - 7 AM chair time with instructions to arrive early. He was given the number for the unit and advised to call in the AM. [facility] is currently at a loss of power. If the unit is not open tomorrow, he will be contacted with alternative date and time for his first outpatient treatment. He understands this plan. Maintain a renal diet. For hyperphosphatemia, continue Phoslo 2 tabs with each meal. (2) FSGS (focal segmental glomerulosclerosis): (3) Hypocalcemia: Plan: Continue calcitriol 1 mcg daily. Continue calcium carbonate 1000 mg daily. (4) Anemia: Plan: Epogen 55768 units provided 01/18. Tsat 23% - Venofer 200 mg x 2 provided. H/H stable. Kvng reports that he is relatively asymptomatic in terms of his anemia and there has been no signs of active bleeding. Additional 100 mg IV venofer provided this AM with HD. Additional 53901 units of Epogen were provided with HD today. (5) Hypertension: Plan: Amlodipine 10 mg daily. Admission and Anticipated Discharge Date Admission Date: January 17, 2025 Subjective No acute events overnight. Kvng developed some symptoms yesterday evening following dialysis, including weakness, sweating, and nausea. Symptoms were very vagal and transient. He otherwise tolerated HD well. Excellent clearance with treatment. He was seen and evaluated during hemodialysis this AM. TDC is functioning well. He feels well and would like to be discharged home today. Review of Systems Review of Systems: All systems reviewed & are unremarkable except as noted in HPI & below Physical Exam Constitutional: well developed; no acute distress Eyes: no scleral abnormality and no corneal abnormality ENMT: Mouth: no oral mucosal abnormality and oral mucous membranes not dry Neck: normal visual inspection and trachea midline Respiratory: normal respiratory effort Auscultation: lungs clear to auscultation bilaterally Cardiovascular: Rate/Rhythm: regular rate Heart Sounds: normal S1 and normal S2 Extremities: no edema Musculoskeletal: Extremities: no cyanosis and no clubbing Skin: normal turgor; no lesions Neurologic: Motor/Sensory: + asterixis Psychiatric: Orientation: alert and oriented x 3 Results & Data Vital Signs (Past 12 Hours) Vital Signs Temp Pulse Pulse Pulse Pulse Resp BP 01/22/25 09:30 76 176/102 H 01/22/25 09:00 71 154/94 H 01/22/25 08:30 73 154/102 H 01/22/25 08:25 36.7 C 81 01/22/25 07:24 36.6 C 66 14 01/22/25 00:36 76 14 BP Pulse Ox O2 Del Method 01/22/25 09:30 01/22/25 09:00 01/22/25 08:30 01/22/25 08:25 01/22/25 07:24 150/80 H 98 Room Air 01/22/25 00:36 136/78 97 Room Air Laboratory Results Laboratory Results - last 24 hr 01/19/25 01/22/25 06:59 06:50 WBC 6.39 RBC 2.24 L Hgb 6.8 L* Hct 19.4 L* MCV 86.6 MCH 30.4 MCHC 35.1 RDW Std Deviation 43.4 RDW Coeff of Juliana 13.8 Plt Count 144 MPV 11.5 Immature Gran % (Auto) 0.5 Neut % (Auto) 79.3 Lymph % (Auto) 12.5 [place] % (Auto) 6.9 Eos % (Auto) 0.3 Baso % (Auto) 0.5 Neut # (Auto) 5.07 Lymph # (Auto) 0.80 L [place] # (Auto) 0.44 Eos # (Auto) 0.02 Baso # (Auto) 0.03 Immature Gran # (Auto) 0.03 Polychromasia 1+ Anisocytosis Present Tear Drop Cells 1+ Sodium 139 Potassium 4.3 Chloride 107 Carbon Dioxide 23 Anion Gap 9 BUN 90 H D Creatinine 17.30 H* D Est Cr Clr Drug Dosing 7.7 eGFR 3.61 BUN/Creatinine Ratio 5.2 L Glucose 94 Calcium 6.6 L Phosphorus 8.7 H Albumin 2.3 L Hep B Core IgM Ab NON-REACTIVE PG Care Time/CCT Total # of Minutes Spent Total Time Spent with Patient: Total time spent is greater than 50% in coordination of care (as documented) at patient's floor/unit and/or counseling patient: Coding Level of Care Code 98003 SUB INP/OBS CARE 350MIN Diagnoses CKD (chronic kidney disease) N18.5 Chronic kidney disease stage: stage 5 (GFR < 15), not on chronic dialysis FSGS (focal segmental glomerulosclerosis) N05.1 Hypocalcemia E83.51 Anemia D64.9 Hypertension I10 (1) CKD (chronic kidney disease) Chronic kidney disease stage: stage 5 (GFR < 15), not on chronic dialysis Qualified Code(s): N18.5 - Chronic kidney disease, stage 5
[2025-01-22 11:57] VITALS: BP 155/93; PULSE 78; TEMP 98.2
[2025-01-23] MEDS ORDERED: CALCIUM CARBONATE 500 MG CHEWABLE TAB PO SCH ×2 (09:00→14:00)
== END 2025-01-22 12:16 | disposition home or self-care (01) | DRG 674 ==
LOC: ED 16:06 → SUATTDRO 19:02 → EDINP 19:02 → 2N 23:36 → 3E 01-18 14:28

== ENCOUNTER 2025-04-01 08:11 | Inpatient (IN) ==
--- NOTE | 2025-04-01 08:37 | Emergency Department Note ---
Impression & Plan Hypertensive emergency, New onset seizure, End stage renal disease ED Provider Note NAME: JI MCCOY AGE: 20 SEX: M : 2005 ARRIVES VIA: Ambulance INFORMANT: Patient, ED PROVIDER(S): Bebe Herrera MD CHIEF COMPLAINT: Seizure HPI: This 20-year-old male presenting for seizure. Patient was at his dialysis session when he began feeling unwell. He asked the dialysis team to stop his treatment. He then walked out to his car where his mom noticed he was confused. He is having trouble walking. He then slumped over the car, she got him into the car noticed him seizing. He had a short round of CPR. Patient came to and started fighting. He has been confused since then. Never had a seizure before. History of FSGS with ESRD/hemodialysis. ROS: See above HPI for pertinent positives & negatives. A total of 10 systems reviewed and were otherwise negative. PAST MEDICAL HISTORY: See Below PAST SURGICAL HISTORY: See Below FAMILY HISTORY: See Below SOCIAL HISTORY: See Below HOME MEDICATIONS: See Below ALLERGIES: See Below VITALS: See Below PHYSICAL EXAMINATION: General: resting comfortably in no acute distress Head: Normocephalic and atraumatic Eyes: Normal inspection, extraocular muscles intact Ear, nose, throat: Normal external exam Neck: Normal range of motion Respiratory: lungs clear to auscultation bilaterally Cardiovascular: Regular rate/rhythm, no murmur, dialysis catheter in place GI: soft, nontender, no guarding or rebound Extremities: nontender, moves all extremities Neuro: The patient awake and alert, not oriented to time, appropriately conversive, no focal deficits, symmetric faces Skin: Warm, dry, and intact MEDICAL DECISION MAKING: This is a 20-year-old male presenting for seizure. No history of seizure. Patient appears somewhat postictal. No current pain except for his head. No shortness of breath, fevers, chills. -Will do screening head CT, basic blood work, seizure workup - No leukocytosis, stable anemia. pH 7.44/39. Electrolytes generally within normal limits. Creatinine 10.12, stable for ESRD. Lactic acid initially elevated at over 8. - Chest Xray independently interpreted by me showing no pneumothorax, focal opacity, or pleural effusions. -CT head reveals no process - Patient does have persistent headache, will give Tylenol his blood pressure is significantly elevated at 220s over 160s. This significant elevated. Consider PRESS syndrome versus hypertensive emergency causing his current etiology. -Discussed with Dr. Valle, neurology, about patient's new seizure. Recommends 1 g loading due to patient's ESRD. -Initially started labetalol with only minimal improvement. Will progress to nicardipine drip -Patient can fentanyl for pain - Patient admitted to the hospitalist service under Dr. Vega for hypertensive emergency, new seizure Differential diagnosis: Seizure, hypertensive emergency, PRESS, SAH, stroke, fluid overload Independent History obtained from: Mother, father Diagnostics interpreted by me: ECG: ECG independently interpreted by me with normal sinus rhythm, rate of 82, normal [place], normal QRS, QTc 490, no ST segment elevations consistent with STEMI criteria Cardiac Monitoring: An order was placed for continuous cardiac monitoring. The monitor shows a rate of 79 with sinus rhythm. Critical Care Note: I have personally spent 45 minutes of critical care time in the direct management of this patient. This includes bedside care, interpretation of diagnostic studies, and testing, discussion with consultants, patient, and family members, and other required patient management activities. This 45 minutes is in excess of all separately billable procedures. Past Med/Surg History Problem List (Updated 04/01/25 @ 14:19 by Bebe Herrera MD) End stage renal disease (Acute) Hypertensive emergency (Acute) New onset seizure (Acute) Encounter for pre-operative examination Metabolic acidosis Hypocalcemia (Acute) ARIANA (acute kidney injury) (Acute) Medical History Anemia Anticoagulated on Coumadin pt states he has not been taking his Coumadin since apprx mid January 2025 Cardiac murmur CKD (chronic kidney disease) Dialysis patient [facility] in [place] > tues/thurs/sat End stage renal disease follows with Dr. Woods - HD 3x per week:[facility] in [place] > tues/thurs/sat FSGS (focal segmental glomerulosclerosis) Generalized anxiety disorder History of postoperative nausea and vomiting Hx of deep venous thrombosis 01/2024 > right arm > was on warfarin > now DC'ed Hx of metabolic acidosis Hypertension recently added clonidine 0.[address] woods Thrombophilia Surgical History H/O hernia repair S/P hemodialysis catheter insertion (12/2024) perm cath for HD- right jugular S/P left knee arthroscopy Family History Mother Diabetes Grandfather (Maternal) Hypertension Other No family history of adverse response to anesthesia Denies family history of Ovarian cancer Prostate cancer Myocardial infarction Breast cancer Lung cancer Stroke Social History Smoking Status: Never smoker Tobacco Type: Cigarettes Second Hand Exposure: No; Do You Dip or Chew Tobacco: No; Hx Alcohol Use: No Hx Substance Use: Yes Last Used Substance Other:: medical marijuana- advised Substance Use Type Other:: medical card daily > advised Preferred Language: Luxembourgish Communication Ability: Effective Visual Impairment: No Limitations Hearing Ability: Normal Lead Case Manager Required: No Beliefs That Will Affect Care: None marital status: Single Current Living Situation: Family Current Living Situation Comment: lives at home with parents current occupational status: employed 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 How many Children do You have: 0 Feels Safe at Home: Yes Childhood Exposure to Second-Hand Smoke: No caffeine: No Dental Care, Regularly: Yes Physical Activity Frequency: 5-6 Times per Week Seatbelt Use: always Sunscreen Use: No Assistive Devices: None Allergies Allergies Allergy/AdvReac Type Severity Reaction Status Date / Time No Known Allergies Allergy Unknown Verified 04/01/25 10:51 Home Meds Home Medications Medication Instructions Recorded Confirmed Medical Marijuana 1 dose PO DIRECTED PRN Other 03/14/25 04/01/25 clonidine HCl 0.1 mg tablet 0.1 mg PO QAM 03/26/25 04/01/25 clonidine 0.1 mg/24 hr weekly 0.1 mg transdermal WK 04/01/25 04/01/25 transdermal patch ketoconazole 2 % topical cream 1 applic topical DIRECTED 04/01/25 04/01/25 losartan 100 mg tablet 0 mg PO DAILY 04/01/25 04/01/25 losartan 50 mg tablet 0 mg PO BID 04/01/25 04/01/25 Previous Rx's Medication Instructions Recorded hydroxyzine HCl 25 mg tablet 25 mg PO TID PRN anxiety #90 tabs 11/13/24 amlodipine 10 mg tablet 10 mg PO QAM #90 tabs 01/29/25 calcium acetate(phosphat bind) 667 1,334 mg (2 x 667 mg) PO TIDM 90 01/29/25 mg capsule days #540 caps cholecalciferol (vitamin D3) 125 125 mcg PO QAM #90 tabs 01/29/25 mcg (5,000 unit) tablet Results & Data (ED) Vital Signs Vital Signs - 24 hr 04/01/25 08:30 04/01/25 08:30 04/01/25 08:37 Temperature 37.2 C Temperature Source Oral Pulse Rate 76 Pulse Rate from SpO2 Sensor Respiratory Rate 21 Blood Pressure 208/137 H 208/137 H 208/137 H Blood Pressure Mean 164 164 160 Pulse Oximetry 92 Oxygen Delivery Method Room Air Sepsis Recent Fever Within 48 Hours No Sepsis New/Unexplained Change in Mental Status N/A Sepsis Action Taken by Nursing No Action Required 04/01/25 08:40 04/01/25 08:51 04/01/25 08:54 Temperature Temperature Source Pulse Rate 75 75 Pulse Rate from SpO2 Sensor 76 Respiratory Rate 18 Blood Pressure 209/145 H Blood Pressure Mean 174 Pulse Oximetry 100 Oxygen Delivery Method Sepsis Recent Fever Within 48 Hours Sepsis New/Unexplained Change in Mental Status Sepsis Action Taken by Nursing 04/01/25 09:00 04/01/25 09:00 04/01/25 09:00 Temperature Temperature Source Pulse Rate 68 Pulse Rate from SpO2 Sensor 69 Respiratory Rate 26 H Blood Pressure 205/135 H 205/135 H Blood Pressure Mean 167 167 Pulse Oximetry 99 Oxygen Delivery Method Sepsis Recent Fever Within 48 Hours Sepsis New/Unexplained Change in Mental Status Sepsis Action Taken by Nursing 04/01/25 09:00 04/01/25 09:00 04/01/25 09:00 Temperature Temperature Source Pulse Rate Pulse Rate from SpO2 Sensor Respiratory Rate Blood Pressure 205/135 H 205/135 H 205/135 H Blood Pressure Mean 167 167 167 Pulse Oximetry Oxygen Delivery Method Sepsis Recent Fever Within 48 Hours Sepsis New/Unexplained Change in Mental Status Sepsis Action Taken by Nursing 04/01/25 09:00 04/01/25 09:00 04/01/25 09:00 Temperature Temperature Source Pulse Rate Pulse Rate from SpO2 Sensor Respiratory Rate Blood Pressure 205/135 H 205/135 H 205/135 H Blood Pressure Mean 167 167 167 Pulse Oximetry Oxygen Delivery Method Sepsis Recent Fever Within 48 Hours Sepsis New/Unexplained Change in Mental Status Sepsis Action Taken by Nursing 04/01/25 09:00 04/01/25 09:01 04/01/25 09:15 Temperature Temperature Source Pulse Rate Pulse Rate from SpO2 Sensor Respiratory Rate Blood Pressure 205/135 H 217/143 H Blood Pressure Mean 167 181 Pulse Oximetry 98 Oxygen Delivery Method Room Air Sepsis Recent Fever Within 48 Hours Sepsis New/Unexplained Change in Mental Status Sepsis Action Taken by Nursing 04/01/25 09:15 04/01/25 09:15 04/01/25 09:15 Temperature Temperature Source Pulse Rate 68 Pulse Rate from SpO2 Sensor 69 Respiratory Rate 18 Blood Pressure 217/143 H 217/143 H Blood Pressure Mean 181 181 Pulse Oximetry 99 Oxygen Delivery Method Sepsis Recent Fever Within 48 Hours Sepsis New/Unexplained Change in Mental Status Sepsis Action Taken by Nursing 04/01/25 09:27 04/01/25 09:30 04/01/25 09:30 Temperature Temperature Source Pulse Rate 75 89 Pulse Rate from SpO2 Sensor 73 88 Respiratory Rate 14 31 H Blood Pressure 214/158 H Blood Pressure Mean 177 Pulse Oximetry 90 100 Oxygen Delivery Method Sepsis Recent Fever Within 48 Hours Sepsis New/Unexplained Change in Mental Status Sepsis Action Taken by Nursing 04/01/25 09:33 04/01/25 09:45 04/01/25 09:45 Temperature Temperature Source Pulse Rate 89 Pulse Rate from SpO2 Sensor 88 Respiratory Rate 38 H Blood Pressure 218/142 H 218/142 H Blood Pressure Mean 170 170 Pulse Oximetry 99 Oxygen Delivery Method Sepsis Recent Fever Within 48 Hours Sepsis New/Unexplained Change in Mental Status Sepsis Action Taken by Nursing 04/01/25 09:46 04/01/25 09:48 04/01/25 09:51 Temperature Temperature Source Pulse Rate 68 60 55 L Pulse Rate from SpO2 Sensor Respiratory Rate 11 L 10 L Blood Pressure 218/142 H Blood Pressure Mean Pulse Oximetry 98 95 Oxygen Delivery Method Sepsis Recent Fever Within 48 Hours Sepsis New/Unexplained Change in Mental Status Sepsis Action Taken by Nursing 04/01/25 10:00 04/01/25 10:00 04/01/25 10:12 Temperature Temperature Source Pulse Rate 65 64 Pulse Rate from SpO2 Sensor 63 60 Respiratory Rate 6 L 10 L Blood Pressure 212/137 H Blood Pressure Mean 165 Pulse Oximetry 87 L 96 Oxygen Delivery Method Sepsis Recent Fever Within 48 Hours Sepsis New/Unexplained Change in Mental Status Sepsis Action Taken by Nursing 04/01/25 10:12 04/01/25 10:12 04/01/25 10:15 Temperature Temperature Source Pulse Rate Pulse Rate from SpO2 Sensor Respiratory Rate Blood Pressure 227/136 H 227/136 H 225/145 H Blood Pressure Mean 168 168 173 Pulse Oximetry Oxygen Delivery Method Sepsis Recent Fever Within 48 Hours Sepsis New/Unexplained Change in Mental Status Sepsis Action Taken by Nursing 04/01/25 10:15 04/01/25 10:15 04/01/25 10:21 Temperature Temperature Source Pulse Rate 57 L Pulse Rate from SpO2 Sensor 57 L Respiratory Rate 20 Blood Pressure 225/145 H 225/145 H Blood Pressure Mean 173 173 Pulse Oximetry 96 Oxygen Delivery Method Sepsis Recent Fever Within 48 Hours Sepsis New/Unexplained Change in Mental Status Sepsis Action Taken by Nursing 04/01/25 10:30 04/01/25 10:30 04/01/25 10:30 Temperature Temperature Source Pulse Rate 77 Pulse Rate from SpO2 Sensor 60 Respiratory Rate 10 L Blood Pressure 218/157 H 218/157 H Blood Pressure Mean 173 173 Pulse Oximetry 97 Oxygen Delivery Method Sepsis Recent Fever Within 48 Hours Sepsis New/Unexplained Change in Mental Status Sepsis Action Taken by Nursing 04/01/25 10:42 04/01/25 10:44 04/01/25 10:45 Temperature Temperature Source Pulse Rate 66 62 64 Pulse Rate from SpO2 Sensor 63 65 Respiratory Rate 26 H 17 Blood Pressure 218/157 H Blood Pressure Mean Pulse Oximetry 99 99 Oxygen Delivery Method Sepsis Recent Fever Within 48 Hours Sepsis New/Unexplained Change in Mental Status Sepsis Action Taken by Nursing 04/01/25 11:00 04/01/25 11:00 04/01/25 11:03 Temperature Temperature Source Pulse Rate 93 H Pulse Rate from SpO2 Sensor 89 Respiratory Rate 18 Blood Pressure 188/119 H 188/119 H Blood Pressure Mean 144 144 Pulse Oximetry 99 Oxygen Delivery Method Sepsis Recent Fever Within 48 Hours Sepsis New/Unexplained Change in Mental Status Sepsis Action Taken by Nursing 04/01/25 11:15 04/01/25 11:15 04/01/25 11:30 Temperature Temperature Source Pulse Rate 80 Pulse Rate from SpO2 Sensor 79 Respiratory Rate 14 Blood Pressure 165/104 H 167/94 H Blood Pressure Mean 131 121 Pulse Oximetry 97 Oxygen Delivery Method Sepsis Recent Fever Within 48 Hours Sepsis New/Unexplained Change in Mental Status Sepsis Action Taken by Nursing 04/01/25 11:30 04/01/25 11:39 04/01/25 11:45 Temperature Temperature Source Pulse Rate 74 64 Pulse Rate from SpO2 Sensor 73 64 Respiratory Rate 13 11 L Blood Pressure 148/91 H Blood Pressure Mean 111 Pulse Oximetry 94 100 Oxygen Delivery Method Sepsis Recent Fever Within 48 Hours Sepsis New/Unexplained Change in Mental Status Sepsis Action Taken by Nursing 04/01/25 11:48 04/01/25 11:54 04/01/25 12:06 Temperature Temperature Source Pulse Rate 66 81 81 Pulse Rate from SpO2 Sensor 68 86 80 Respiratory Rate 21 18 Blood Pressure Blood Pressure Mean Pulse Oximetry 100 100 98 Oxygen Delivery Method Sepsis Recent Fever Within 48 Hours Sepsis New/Unexplained Change in Mental Status Sepsis Action Taken by Nursing 04/01/25 12:15 04/01/25 12:24 Temperature Temperature Source Pulse Rate 72 Pulse Rate from SpO2 Sensor 72 Respiratory Rate 10 L Blood Pressure 152/86 H Blood Pressure Mean 111 Pulse Oximetry 100 Oxygen Delivery Method Sepsis Recent Fever Within 48 Hours Sepsis New/Unexplained Change in Mental Status Sepsis Action Taken by Nursing Laboratory Data 04/01/25 08:25 04/01/25 08:25 Lab Results 04/01/25 04/01/25 04/01/25 Range/Units 08:25 08:30 10:19 WBC 5.67 (4.8-10.8) K/ul RBC 3.75 L (4.70-6.10) M/uL Hgb 11.7 L (14.0-18.0) g/dl POC Hgb 11.2 L (14.0-18.0) g/dl Hct 33.6 L (42.0-52.0) % POC Hct 33 L (42-52) % MCV 89.6 (80.0-100.0) fL MCH 31.2 (25.0-34.0) pg MCHC 34.8 (32.0-36.0) g/dL RDW Std Deviation 44.3 (36.4-46.3) fL RDW Coeff of Juliana 13.8 (11.5-14.5) % Plt Count 104 L (130-400) K/uL MPV 12.4 (9.4-12.4) fL Immature Gran % (Auto) 0.4 % Neut % (Auto) 75.3 % Lymph % (Auto) 16.0 % Bartholomew % (Auto) 4.9 % Eos % (Auto) 2.3 % Baso % (Auto) 1.1 % Neut # (Auto) 4.27 (1.40-6.50) K/uL Lymph # (Auto) 0.91 L (1.20-3.40) K/uL Bartholomew # (Auto) 0.28 (0.11-0.59) K/uL Eos # (Auto) 0.13 (0.00-0.50) K/uL Baso # (Auto) 0.06 (0.00-0.20) K/uL Immature Gran # (Auto) 0.02 (0.01-0.20) K/uL VBG pH 7.44 H (7.36-7.41) VBG pCO2 39 (38-50) mmHg VBG pO2 42 mmHg VBG HCO3 27 mmol/L VBG O2 Saturation 74.4 % VBG Base Excess 2.3 mEq/L POC Sodium 134 L (135-144) mmol/L Sodium 138 (136-145) mmol/L POC Potassium 3.9 (3.3-5.0) mmol/L Potassium 4.0 (3.5-5.1) mmol/L POC Chloride 93 L (101-112) mmol/L Chloride 93 L (98-107) mmol/L Carbon Dioxide 27 (21-32) mmol/L POC Total CO2 25 (24-31) mmol/L Anion Gap 18 H (3-11) POC Anion Gap 21.0 (16-25) mmol/L POC BUN 34 H (7-18) mg/dl BUN 36 H (6-23) mg/dl Creatinine 10.12 H* (0.6-1.4) mg/dl POC Creatinine 10.7 mg/dl Est Cr Clr Drug Dosing 12.9 ml/min eGFR 6.87 BUN/Creatinine Ratio 3.6 L (10-20) Glucose 126 H (70-99(Fasting)) mg/dl POC Glucose (other) 122 H (70-99) mg/dl Lactate 8.4 H* 1.2 (0.4-2.0) mmol/L Calcium 8.2 L (8.6-10.3) mg/dl POC Ioniz Calcium Lj 0.95 mmol/l Total Bilirubin 1.1 H (0.2-1.0) mg/dl AST 35 (13-39) U/L ALT 23 (7-52) U/L Alkaline Phosphatase 75 (34-104) U/L Total Protein 5.6 L (6.0-8.3) gm/dl Albumin 3.9 (3.4-5.0) gm/dl Globulin 1.7 L (2.5-4.0) gm/dl Albumin/Globulin Ratio 2.3 H (0.9-2) Administered Medications Nicardipine HCl 25 mg/ Sodium (Chloride) 250 mls @ 50 mls/hr IV .Q5H [facility]; Protocol Stop: 05/01/25 10:29 Last Admin: 04/01/25 10:38 Dose: 5 mg/hr, 50 mls/hr Documented By: LAYO Co-signed By: AMS Discontinued Medications Fentanyl Citrate (Fentanyl Citrate Pf 100 Mcg/2 Ml Vial) 50 mcg IV NOW STA Stop: 04/01/25 11:22 Last Admin: 04/01/25 11:26 Dose: 50 mcg Documented By: ML Acetaminophen (Ofirmev) 1,000 mg in 100 mls @ 400 mls/hr IV NOW STA Stop: 04/01/25 09:06 Last Infusion: 04/01/25 10:14 Dose: Infused Documented By: Admin: 04/01/25 08:54 Dose: 400 mls/hr Documented By: ML Labetalol HCl (Labetalol Hcl Iv 5 Mg/Ml 20ml) 10 mg IV NOW STA Stop: 04/01/25 09:41 Last Admin: 04/01/25 09:46 Dose: 10 mg Documented By: ML Levetiracetam (Levetiracetam 500 Mg/5 Ml Vial) 1,000 mg IV NOW STA Stop: 04/01/25 09:43 Last Admin: 04/01/25 09:46 Dose: 1,000 mg Documented By: ML Miscellaneous (Stat Iv Infusion Titration Per Protocol) 1 each N/A NOW STA Stop: 04/01/25 10:18 Last Admin: 04/01/25 10:45 Dose: Not Given Documented By: ML Morphine Sulfate (Morphine Sulfate 2 Mg/Ml Carp) 2 mg IV NOW STA Stop: 04/01/25 12:10 Last Admin: 04/01/25 12:18 Dose: 2 mg Documented By: ML Ondansetron HCl (Ondansetron Inj 2 Mg/Ml 2 Ml Vial) Confirm Administered Dose 4 mg .ROUTE .STK-MED ONE Stop: 04/01/25 09:36 Last Admin: 04/01/25 09:36 Dose: 4 mg Documented By: ML Ondansetron HCl (Ondansetron Inj 2 Mg/Ml 2 Ml Vial) 4 mg IV NOW STA Stop: 04/01/25 10:22 Last Admin: 04/01/25 10:22 Dose: Not Given Documented By: ML Imaging Data Radiologist's Impression: Head CT 04/01/25 08:32 CT head/brain wo con CLINICAL HISTORY: 20 years-old Male with Seizure. Acute seizure-like episode TECHNIQUE: Multiple axial CT images of the head were obtained without contrast. A dose lowering technique was utilized adhering to the principles of ALARA. CT DOSE: 625.8 mGy.cm COMPARISON: None. FINDINGS: No acute intracranial hemorrhage, midline shift, intracranial mass, hydrocephalus, territorial ischemia or abnormal extra-axial collection. The calvarium is intact. Disconjugate gaze. The paranasal sinuses, mastoid air cells, and middle ear cavities are clear. IMPRESSION: No acute intracranial abnormality. ACT 112: Negative or not required by law. The above report was generated using voice recognition software. It may contain grammatical, syntax or spelling errors. Electronically signed by: Filemon Gibbs M.D. 04/01/2025 8:57 AM Chest X-Ray 04/01/25 08:38 XR chest 1V portable CLINICAL HISTORY: Shortness of breath. COMPARISON STUDY: Chest radiograph March 24, 2025. FINDINGS: A dual lumen right internal jugular central venous catheter is in place. There is no pneumothorax or pleural effusion. There is mild enlargement of the cardiac silhouette without evidence for pulmonary edema. No consolidation to suggest pneumonia. IMPRESSION: No acute cardiopulmonary findings. ACT 112: Negative or not required by law. Electronically signed by: Magdy Jones M.D. 04/01/2025 9:07 AM Discharge Plan Visit Data Chief Complaint: Seizure ED Provider: Bebe Herrera Discharge Problem: Hypertensive emergency, New onset seizure, End stage renal disease Patient Disposition: Admitted As Inpatient Condition: Serious Discharge Instructions Interventions: ED Discharge Assessment Last Done: 04/01/25 13:33
[2025-04-01 08:38] LABS: Base Excess VBG 2.3 mEq/L; HCO3 VBG 27 mmol/L; Oxygen Saturation VBG 74.4 %; PCO2 VBG 39 mmHg (38-50); PO2 VBG 42 mmHg; pH VBG 7.44 (7.36-7.41)
[2025-04-01 08:52] LABS: Hematocrit (blood only) 33.6 % (42.0-52.0); Hemoglobin 11.7 g/dl (14.0-18.0); Immature Granulocytes # (auto) 0.02 K/uL (0.01-0.20); Immature Granulocytes % (auto) 0.4 %; Mean Corpuscular Hemoglobin 31.2 pg (25.0-34.0); Mean Corpuscular Volume 89.6 fL (80.0-100.0); Platelet Count 104 K/uL (130-400); RDW Standard Deviation 44.3 fL (36.4-46.3); Red Blood Count 3.75 M/uL (4.70-6.10); White Blood Count 5.67 K/ul (4.8-10.8)
[2025-04-01] MEDS: ACETAMINOPHEN 1,000 MG/100 ML VIAL IV STA ×2 (08:54→22:13)
--- NOTE | 2025-04-01 08:58 | CT Scan Report ---
CT head/brain wo con CLINICAL HISTORY: 20 years-old Male with Seizure. Acute seizure-like episode TECHNIQUE: Multiple axial CT images of the head were obtained without contrast. A dose lowering tech nique was utilized adhering to the principles of ALARA. CT DOSE: 625.8 mGy.cm COMPARISON: None. FINDINGS: No acute intracranial hemorrhage, midline shift, intracranial mass, hydrocephalus, territorial ischem ia or abnormal extra-axial collection. The calvarium is intact. Disconjugate gaze. The paranasal sinuses, mastoid air cells, and middle ear cavities are clear. IMPRESSION: No acute intracranial abnormality. ACT 112: Negative or not required by law. The above report was generated using voice recognition software. It may contain grammatical, syntax o r spelling errors. Electronically signed by: Filemon Gibbs M.D. 04/01/2025 8:57 AM
--- NOTE | 2025-04-01 09:08 | XRay Report ---
XR chest 1V portable CLINICAL HISTORY: Shortness of breath. COMPARISON STUDY: Chest radiograph March 24, 2025. FINDINGS: A dual lumen right internal jugular central venous catheter is in place. There is no pneumo thorax or pleural effusion. There is mild enlargement of the cardiac silhouette without evidence for pulmonary edema. No consolidation to suggest pneumonia. IMPRESSION: No acute cardiopulmonary findings. ACT 112: Negative or not required by law. Electronically signed by: Magdy Jones M.D. 04/01/2025 9:07 AM
[2025-04-01 09:17] LABS: Alanine Aminotransferase 23.0 U/L (7-52); Albumin Globulin Ratio 2.3 (0.9-2); Alkaline Phosphatase 75.0 U/L (34-104); Anion Gap 18.0 (3-11); Bilirubin,Total 1.1 mg/dl (0.2-1.0); Blood Urea Nitrogen 36.0 mg/dl (6-23); Calcium 8.2 mg/dl (8.6-10.3); Carbon Dioxide 27.0 mmol/L (21-32); Chloride 93.0 mmol/L (98-107); Creatinine Clr Calc Pharmacy 12.9 ml/min; Globulin 1.7 gm/dl (2.5-4.0); Glucose 126.0 mg/dl (70-99(Fasting)); Potassium 4.0 mmol/L (3.5-5.1); Sodium 138.0 mmol/L (136-145); Total Protein 5.6 gm/dl (6.0-8.3)
[2025-04-01] MEDS: ONDANSETRON INJ 2 MG/ML 2 ML VIAL ONE (09:36)
[2025-04-01] MEDS: LABETALOL HCL IV 5 MG/ML 20ML IV STA (09:46)
[2025-04-01] MEDS: ONDANSETRON INJ 2 MG/ML 2 ML VIAL IV STA (10:22)
[2025-04-01] MEDS: STAT IV Infusion **Titration per Protocol STA (10:45)
--- NOTE | 2025-04-01 11:47 | History & Physical Report ---
Date of Service April 01, 2025 Assessment & Plan (1) New onset seizure: Plan: Probably related to hypertensive emergency. Initial head CT scan unremarkable. He has been started on parenteral Keppra. Neurology consultation requested (2) Hypertensive emergency: Plan: Blood pressure markedly elevated during hemodialysis. He received intravenous labetalol in the ED and is now on a nicardipine drip. (3) End stage renal disease: Plan: Due to biopsy-proven FSGS. Nephrology consultation requested and pending. Continue hemodialysis per nephrology recommendations Plan Anticipate eventual discharge to home later this week History of Present Illness Chief Complaint: New onset seizures, hypertensive emergency Primary Care Provider: Harsh Marshall DO 20-year-old white male with biopsy-proven FS GS producing end-stage renal disease leading to hemodialysis. He developed new onset seizures related to hypertensive emergency today, April 01. He was not feeling well when he was in hemodialysis earlier today. He has been seen in the ED and given intravenous labetalol and started on a nicardipine drip and also parenteral Keppra. Head CT scan on admission is negative for acute findings and chest x-ray is unremarkable. He will be admitted for further evaluation and treatment Allergies Allergy/AdvReac Type Severity Reaction Status Date / Time No Known Allergies Allergy Unknown Verified 04/01/25 10:51 Home Medications Medication Instructions Recorded Confirmed Type hydroxyzine HCl 25 mg tablet 25 mg PO TID PRN anxiety #90 tabs 11/13/24 04/01/25 Rx amlodipine 10 mg tablet 10 mg PO QAM #90 tabs 01/29/25 04/01/25 Rx calcium acetate(phosphat bind) 667 1,334 mg (2 x 667 mg) PO TIDM 90 01/29/25 04/01/25 Rx mg capsule days #540 caps cholecalciferol (vitamin D3) 125 125 mcg PO QAM #90 tabs 01/29/25 04/01/25 Rx mcg (5,000 unit) tablet Medical Marijuana 1 dose PO DIRECTED PRN Other 03/14/25 04/01/25 History clonidine HCl 0.1 mg tablet 0.1 mg PO QAM 03/26/25 04/01/25 History clonidine 0.1 mg/24 hr weekly 0.1 mg transdermal WK 04/01/25 04/01/25 History transdermal patch ketoconazole 2 % topical cream 1 applic topical DIRECTED 04/01/25 04/01/25 History losartan 100 mg tablet 0 mg PO DAILY 04/01/25 04/01/25 History losartan 50 mg tablet 0 mg PO BID 04/01/25 04/01/25 History Past Med/Surg History Problem List (Updated 04/01/25 @ 11:45 by Sher Vega MD) End stage renal disease Hypertensive emergency New onset seizure Encounter for pre-operative examination Metabolic acidosis Hypocalcemia (Acute) ARIANA (acute kidney injury) (Acute) Medical History Anemia Anticoagulated on Coumadin pt states he has not been taking his Coumadin since apprx mid January 2025 Cardiac murmur CKD (chronic kidney disease) Dialysis patient [facility] in [place] > //sat End stage renal disease follows with Dr. Woods - HD 3x per week:[facility] in [place] > //sat FSGS (focal segmental glomerulosclerosis) Generalized anxiety disorder History of postoperative nausea and vomiting Hx of deep venous thrombosis 01/2024 > right arm > was on warfarin > now DC'ed Hx of metabolic acidosis Hypertension recently added clonidine 0.[address] woods Thrombophilia Surgical History H/O hernia repair S/P hemodialysis catheter insertion (12/2024) perm cath for HD- right jugular S/P left knee arthroscopy Family History Mother Diabetes Grandfather (Maternal) Hypertension Other No family history of adverse response to anesthesia Denies family history of Ovarian cancer Prostate cancer Myocardial infarction Breast cancer Lung cancer Stroke Social History Smoking Status: Never smoker Tobacco Type: Cigarettes Smoking End Date: quit 1 year ago; Second Hand Exposure: No; Do You Dip or Chew Tobacco: No; Tobacco Cessation Education Requested by Patient: No Hx Alcohol Use: No Hx Substance Use: Yes Last Used Substance Other:: medical marijuana- advised Substance Use Type Other:: medical card daily > advised Preferred Language: Senegalese Communication Ability: Effective Visual Impairment: No Limitations Hearing Ability: Normal Adjunct Faculty Instructor Required: No Beliefs That Will Affect Care: None marital status: Single Current Living Situation: Family Current Living Situation Comment: lives at home with parents current occupational status: employed 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 Somewhat lethargic after seizure activity ENTno blurred vision, no double vision, no epistaxis, no sore throat Respiratoryno cough, no wheezing, no shortness of breath Cardiacno palpitations, no chest pain, no syncope Monserrat nausea, vomiting, diarrhea, melena, hematochezia GUno urinary retention, no urinary incontinence, no dysuria, no hematuria Musculoskeletalno joint pain, no muscle tenderness Skinno bruising, no rashes, no pruritus Neurono isolated weakness, no paresthesia, no weakness Psychno depression, no anxiety Physical Exam 2 Physical Exam: General-lethargic. No fever HEENT-head atraumatic and normocephalic, pupils equal and reactive to light, extraocular muscles intact Neck-no lymphadenopathy or thyromegaly, trachea midline Chest-clear to auscultation. No rales, wheezing or rhonchi. Dialysis catheter in place in the right upper anterior chest wall Cardiac-regular rate and rhythm, normal S1 and S2 Abdomen-normal bowel sounds, no hepatosplenomegaly Extremities-no cyanosis, clubbing, or edema Neuro-cranial nerves II through XII intact, motor and sensory function within normal limits, strength symmetrical, no focal deficits Psych-normal affect, normal mood Results & Data Results & Data Vital Signs (Past 12 Hours) Vital Signs Temp Pulse Resp BP Pulse Ox O2 Del Method 04/01/25 10:44 62 218/157 H 04/01/25 10:42 66 26 H 99 04/01/25 10:30 77 10 L 97 04/01/25 10:30 218/157 H 04/01/25 10:30 218/157 H 04/01/25 10:21 57 L 20 96 04/01/25 10:15 225/145 H 04/01/25 10:15 225/145 H 04/01/25 10:15 225/145 H 04/01/25 10:12 227/136 H 04/01/25 10:12 227/136 H 04/01/25 10:12 64 10 L 96 04/01/25 10:00 212/137 H 04/01/25 10:00 65 6 L 87 L 04/01/25 09:51 55 L 10 L 95 04/01/25 09:48 60 11 L 98 04/01/25 09:46 68 218/142 H 04/01/25 09:45 218/142 H 04/01/25 09:45 218/142 H 04/01/25 09:33 89 38 H 99 04/01/25 09:30 214/158 H 04/01/25 09:30 89 31 H 100 04/01/25 09:27 75 14 90 04/01/25 09:15 68 18 99 04/01/25 09:15 217/143 H 04/01/25 09:15 217/143 H 04/01/25 09:15 217/143 H 04/01/25 09:01 98 Room Air 04/01/25 09:00 205/135 H 04/01/25 09:00 205/135 H 04/01/25 09:00 205/135 H 04/01/25 09:00 205/135 H 04/01/25 09:00 205/135 H 04/01/25 09:00 205/135 H 04/01/25 09:00 205/135 H 04/01/25 09:00 205/135 H 04/01/25 09:00 205/135 H 04/01/25 09:00 68 26 H 99 04/01/25 08:54 75 18 100 04/01/25 08:51 209/145 H 04/01/25 08:40 75 04/01/25 08:37 37.2 C 76 21 208/137 H 92 Room Air 04/01/25 08:30 208/137 H 04/01/25 08:30 208/137 H Laboratory Results 04/01/25 08:25 04/01/25 08:25 Code Status & VTE Plan Code Status Full code PG Care Time/CCT Total # of Minutes Spent Total Time Spent with Patient: Total time spent is greater than 50% in coordination of care (as documented) at patient's floor/unit and/or counseling patient: Coding Level of Care Code 12045 INT INP/OBS CARE MIN Diagnoses New onset seizure R56.9 Hypertensive emergency I16.1 End stage renal disease N18.6
[2025-04-01] MEDS: MoRPHine SULFATE 2 MG/ML CARP IV STA (12:18)
[2025-04-01] MEDS: CALCIUM ACETATE 667 MG CAP/TAB PO SCH (15:30)
[2025-04-01] MEDS: MoRPHine SULFATE 2 MG/ML CARP IV PRN (15:30)
[2025-04-01] MEDS: MoRPHine SULFATE 4 MG/ML 1 ML CARP\\VIAL IV STA (16:52)
[2025-04-01] MEDS: CHECK CLONIDINE PATCH PLACEMENT SCH (16:55)
--- NOTE | 2025-04-01 17:18 | Nephrology Consultation ---
Date of Consultation April 01, 2025 Assessment & Plan (1) Hypertensive emergency: * Patient admitted with hypertensive emergency * IV nicardipine drip as per primary service * Recommend 20% reduction in blood pressure over first hour and additional 10- 15% reduction over the next 23 hours * Consider restarting amlodipine and losartan in the a.m. * Once taking oral medications will consider adding furosemide to the patient's medical regimen. Will ask staffing executive to measure UO (2) End stage renal disease: * Patient completed 2 hours 15 minutes of HD this morning volume status and electrolyte balance are acceptable. No acute indication for hemodialysis this evening * Outpatient HD Rx: MWF 3.75 Fx CorAL80 BFR 400/QD800 2K 2Ca 1Mg Na140 HCO3 40 EDW 77.9kg * BMP, CBC in a.m. History of Present Illness Reason for Consultation: ESKD-D Attending Physician: Sher Vega MD History of Present Illness Mr. Ramos is a 20-year-old white male who is seen at the request of the [facility] hospitalist service to provide inpatient HD and assist with medical management. Information for the HPI is obtained from direct patient interview and review of the EMR. HPI summarized as follows: Mr. Ramos was found to have proteinuria as a child. At age 7 he underwent [place] kidney biopsy that was interpreted as minimal-change disease. In 2021 he was found to have progressive hypertension and worsening proteinuria. He developed nephrotic syndrome and on 10/04/2023 underwent a second [place] kidney biopsy. The final diagnosis was FSGS with glomerulosclerosis involving 19/29 glomeruli and 60-70% interstitial fibrosis. Rituximab therapy was discussed but declined. Mr. Hoyt attempted to manage his condition with dietary modification. Unfortunately by 01/18/2025 he had progressed to ESKD. Serum creatinine was > 19.20 w/ BUN 140. R IJ TCC was placed by Dr. Pacheco 01/21/2025 and HD was started. Mr. Hoyt now dialyzes at [facility] under the care of Dr. Woods (MWF 3.75 Fx CorAL80 BFR 400/QD800 2K 2Ca 1Mg Na140 HCO3 40 EDW 77.9kg). Review of [facility] EMR shows that Mr. Ramos has been hypertensive prior to his dialysis treatments. IDWG has been variable 1.7- 4.7kg. Patient reports that he still urinates at least 1L/day. He maintains adherence to his prescribed antihypertensive regimen of amlodipine 10 mg and losartan 100 mg each morning but waits to take his medication after dialysis on dialysis days. Recently clonidine 0.1 mg daily has been added to his medical regimen. This morning Mr. Ramos presented for dialysis and was found to have a predialysis SBP of 230 mmHg. HD staffing executive recommended EMD evaluation. Patient declined and requested treatment. He was placed on circuit. He completed 2 hours and 15 minutes of his treatment but became nauseous and requested to be taken off. SBP remained elevated following treatment. staffing executive again advised EMD evaluation and offered to call EMS. The patient declined. Upon leaving the unit he suffered a seizure in the family automobile and was unresponsive for short period of time. CPR was initiated and he was successfully resuscitated. He was then transferred to the EMD for evaluation. Mr. Hoyt was placed on a nicardipine drip for management of blood pressure. And started on Keppra for management of seizure. Head CT was negative for CVA. Admission laboratory studies revealed Na134, K3.9, HCO3 25, BUN 34. CXR was negative for pulmonary edema. Patient was breathing comfortably on RA with SaO2 98% Allergies Allergy/AdvReac Type Severity Reaction Status Date / Time No Known Allergies Allergy Unknown Verified 04/01/25 10:51 Home Medications Medication Instructions Recorded Confirmed Type hydroxyzine HCl 25 mg tablet 25 mg PO TID PRN anxiety #90 tabs 11/13/24 04/01/25 Rx amlodipine 10 mg tablet 10 mg PO QAM #90 tabs 01/29/25 04/01/25 Rx calcium acetate(phosphat bind) 667 1,334 mg (2 x 667 mg) PO TIDM 90 01/29/25 04/01/25 Rx mg capsule days #540 caps cholecalciferol (vitamin D3) 125 125 mcg PO QAM #90 tabs 01/29/25 04/01/25 Rx mcg (5,000 unit) tablet Medical Marijuana 1 dose PO DIRECTED PRN Other 03/14/25 04/01/25 History clonidine HCl 0.1 mg tablet 0.1 mg PO QAM 03/26/25 04/01/25 History clonidine 0.1 mg/24 hr weekly 0.1 mg transdermal WK 04/01/25 04/01/25 History transdermal patch ketoconazole 2 % topical cream 1 applic topical DIRECTED 04/01/25 04/01/25 History losartan 100 mg tablet 0 mg PO DAILY 04/01/25 04/01/25 History losartan 50 mg tablet 0 mg PO BID 04/01/25 04/01/25 History Patient History Medical History Hx of metabolic acidosis Anticoagulated on Coumadin pt states he has not been taking his Coumadin since apprx mid January 2025 Dialysis patient [facility] in [place] > tues/thurs/sat History of postoperative nausea and vomiting Hx of deep venous thrombosis 01/2024 > right arm > was on warfarin > now DC'ed Cardiac murmur Anemia FSGS (focal segmental glomerulosclerosis) Generalized anxiety disorder Thrombophilia End stage renal disease follows with Dr. Woods - HD 3x per week:[facility] in [place] > //sat CKD (chronic kidney disease) Hypertension recently added clonidine 0.[address] woods Surgical History S/P hemodialysis catheter insertion (12/2024) perm cath for HD- right jugular S/P left knee arthroscopy H/O hernia repair Family History Mother Diabetes Grandfather (Maternal) Hypertension Other No family history of adverse response to anesthesia Denies family history of Ovarian cancer Prostate cancer Myocardial infarction Breast cancer Lung cancer Stroke Social History Smoking Status: Never smoker Tobacco Type: Cigarettes Second Hand Exposure: No; Do You Dip or Chew Tobacco: No; Hx Alcohol Use: No Hx Substance Use: Yes Last Used Substance: Unknown Substance Use Type Other:: medical card daily > advised Preferred Language: Estonian Communication Ability: Effective Visual Impairment: No Limitations Hearing Ability: Normal Parachute Line Tier Required: No Beliefs That Will Affect Care: None marital status: Single Current Living Situation: Family Current Living Situation Comment: lives at home with parents current occupational status: employed 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 How many Children do You have: 0 Other Information That Helps Us Care for You: No Feels Safe at Home: Yes Safety Concerns: Feels Safe At This Time Childhood Exposure to Second-Hand Smoke: No caffeine: No Dental Care, Regularly: Yes Physical Activity Frequency: 5-6 Times per Week Seatbelt Use: always Sunscreen Use: No Assistive Devices: None Review of Systems Constitutional: no fever Eyes: + spots in vision (R eye) Ear, Nose, Mouth, Throat: no problem reported Respiratory: no cough and no dyspnea Cardiovascular: no chest pain and no edema Gastrointestinal: no abdominal pain, no nausea, no vomiting and no diarrhea/loose stools Genitourinary: no difficulty urinating Integumentary: no rash Neurologic: + seizure-like activity and + headache(s ) Physical Exam 2 Constitutional: + in distress (Headache) Eyes: PERRL, conjunctivae normal, anicteric sclerae ENMT: external ear and nose normal, oropharynx normal Neck: trachea midline, no thyromegaly (R IJ TCC with clean dry dressing in place) Respiratory: normal respiratory effort, lungs clear to auscultation Cardiovascular: RRR, no murmur, no edema Gastrointestinal (Abdomen): normal bowel sounds, soft, nontender, no hepatosplenomegaly Musculoskeletal: Extremities: no cyanosis and no clubbing Skin: no rashes, warm and dry Neurologic: no focal motor deficits Results & Data Vital Signs (Past 12 Hours) Vital Signs Temp Pulse Pulse Resp BP BP Pulse Ox 04/01/25 16:50 81 147/69 H 04/01/25 16:28 74 153/84 H 04/01/25 16:02 36.6 C 83 18 144/88 H 98 04/01/25 15:52 74 136/80 04/01/25 15:37 73 122/69 04/01/25 15:17 75 144/89 H 04/01/25 14:45 159/81 H 04/01/25 14:39 80 13 100 04/01/25 14:33 79 13 04/01/25 14:30 151/82 H 04/01/25 14:30 151/82 H 04/01/25 14:27 82 10 L 100 04/01/25 14:18 79 20 100 04/01/25 14:15 151/82 H 04/01/25 14:15 151/82 H 04/01/25 14:09 75 21 04/01/25 14:06 80 17 100 04/01/25 14:00 155/86 H 04/01/25 14:00 155/86 H 04/01/25 13:57 74 14 98 04/01/25 13:33 77 16 100 04/01/25 13:30 156/86 H 04/01/25 13:30 156/86 H 04/01/25 13:15 147/80 H 04/01/25 13:15 147/80 H 04/01/25 13:15 74 17 100 04/01/25 13:12 77 16 100 04/01/25 13:06 82 18 100 04/01/25 13:00 153/79 H 04/01/25 12:57 74 7 L 100 04/01/25 12:30 79 13 100 04/01/25 12:30 153/110 H 04/01/25 12:30 153/110 H 04/01/25 12:30 153/110 H 04/01/25 12:24 72 10 L 100 04/01/25 12:15 152/86 H 04/01/25 12:06 81 18 98 04/01/25 11:54 81 100 04/01/25 11:48 66 21 100 04/01/25 11:45 148/91 H 04/01/25 11:39 64 11 L 100 04/01/25 11:30 74 13 94 04/01/25 11:30 167/94 H 04/01/25 11:15 165/104 H 04/01/25 11:15 80 14 97 04/01/25 11:03 93 H 18 99 04/01/25 11:00 188/119 H 04/01/25 11:00 188/119 H 04/01/25 10:45 64 17 99 04/01/25 10:44 62 218/157 H 04/01/25 10:42 66 26 H 99 04/01/25 10:30 77 10 L 97 04/01/25 10:30 218/157 H 04/01/25 10:30 218/157 H 04/01/25 10:21 57 L 20 96 04/01/25 10:15 225/145 H 04/01/25 10:15 225/145 H 04/01/25 10:15 225/145 H 04/01/25 10:12 227/136 H 04/01/25 10:12 227/136 H 04/01/25 10:12 64 10 L 96 04/01/25 10:00 212/137 H 04/01/25 10:00 65 6 L 87 L 04/01/25 09:51 55 L 10 L 95 04/01/25 09:48 60 11 L 98 04/01/25 09:46 68 218/142 H 04/01/25 09:45 218/142 H 04/01/25 09:45 218/142 H 04/01/25 09:33 89 38 H 99 04/01/25 09:30 214/158 H 04/01/25 09:30 89 31 H 100 04/01/25 09:27 75 14 90 04/01/25 09:15 68 18 99 04/01/25 09:15 217/143 H 04/01/25 09:15 217/143 H 04/01/25 09:15 217/143 H 04/01/25 09:01 98 04/01/25 09:00 205/135 H 04/01/25 09:00 205/135 H 04/01/25 09:00 205/135 H 04/01/25 09:00 205/135 H 04/01/25 09:00 205/135 H 04/01/25 09:00 205/135 H 04/01/25 09:00 205/135 H 04/01/25 09:00 205/135 H 04/01/25 09:00 205/135 H 04/01/25 09:00 68 26 H 99 04/01/25 08:54 75 18 100 04/01/25 08:51 209/145 H 04/01/25 08:40 75 04/01/25 08:37 37.2 C 76 21 208/137 H 92 04/01/25 08:30 208/137 H 04/01/25 08:30 208/137 H O2 Del Method 04/01/25 16:50 04/01/25 16:28 04/01/25 16:02 Room Air 04/01/25 15:52 04/01/25 15:37 04/01/25 15:17 04/01/25 14:45 04/01/25 14:39 04/01/25 14:33 04/01/25 14:30 04/01/25 14:30 04/01/25 14:27 04/01/25 14:18 04/01/25 14:15 04/01/25 14:15 04/01/25 14:09 04/01/25 14:06 04/01/25 14:00 04/01/25 14:00 04/01/25 13:57 04/01/25 13:33 04/01/25 13:30 04/01/25 13:30 04/01/25 13:15 04/01/25 13:15 04/01/25 13:15 04/01/25 13:12 04/01/25 13:06 04/01/25 13:00 04/01/25 12:57 04/01/25 12:30 04/01/25 12:30 04/01/25 12:30 04/01/25 12:30 04/01/25 12:24 04/01/25 12:15 04/01/25 12:06 04/01/25 11:54 04/01/25 11:48 04/01/25 11:45 04/01/25 11:39 04/01/25 11:30 04/01/25 11:30 04/01/25 11:15 04/01/25 11:15 04/01/25 11:03 04/01/25 11:00 04/01/25 11:00 04/01/25 10:45 04/01/25 10:44 04/01/25 10:42 04/01/25 10:30 04/01/25 10:30 04/01/25 10:30 04/01/25 10:21 04/01/25 10:15 04/01/25 10:15 04/01/25 10:15 04/01/25 10:12 04/01/25 10:12 04/01/25 10:12 04/01/25 10:00 04/01/25 10:00 04/01/25 09:51 04/01/25 09:48 04/01/25 09:46 04/01/25 09:45 04/01/25 09:45 04/01/25 09:33 04/01/25 09:30 04/01/25 09:30 04/01/25 09:27 04/01/25 09:15 04/01/25 09:15 04/01/25 09:15 04/01/25 09:15 04/01/25 09:01 Room Air 04/01/25 09:00 04/01/25 09:00 04/01/25 09:00 04/01/25 09:00 04/01/25 09:00 04/01/25 09:00 04/01/25 09:00 04/01/25 09:00 04/01/25 09:00 04/01/25 09:00 04/01/25 08:54 04/01/25 08:51 04/01/25 08:40 04/01/25 08:37 Room Air 04/01/25 08:30 04/01/25 08:30 Laboratory Results Laboratory Results WBC 5.67 K/ul (4.8-10.8) 04/01/25 08:25 RBC 3.75 M/uL (4.70-6.10) L 04/01/25 08:25 Hgb 11.7 g/dl (14.0-18.0) L 04/01/25 08:25 POC Hgb 11.2 g/dl (14.0-18.0) L 04/01/25 08:30 Hct 33.6 % (42.0-52.0) L 04/01/25 08: POC Hct 33 % (42-52) L 04/01/25 08:30 MCV 89.6 fL (80.0-100.0) 04/01/25 08:25 MCH 31.2 pg (25.0-34.0) 04/01/25 08: MCHC 34.8 g/dL (32.0-36.0) 04/01/25 08:25 RDW Std Deviation 44.3 fL (36.4-46.3) 04/01/25 08: RDW Coeff of Juliana 13.8 % (11.5-14.5) 04/01/25 08: Plt Count 104 K/uL (130-400) L 04/01/25 08:25 MPV 12.4 fL (9.4-12.4) 04/01/25 08:25 Immature Gran % (Auto) 0.4 % 04/01/25 08:25 Neut % (Auto) 75.3 % 04/01/25 08:25 Lymph % (Auto) 16.0 % 04/01/25 08:25 Daggett % (Auto) 4.9 % 04/01/25 08: Eos % (Auto) 2.3 % 04/01/25 08: Baso % (Auto) 1.1 % 04/01/25 08: Neut # (Auto) 4.27 K/uL (1.40-6.50) 04/01/25 08: Lymph # (Auto) 0.91 K/uL (1.20-3.40) L 04/01/25 08: Daggett # (Auto) 0.28 K/uL (0.11-0.59) 04/01/25 08: Eos # (Auto) 0.13 K/uL (0.00-0.50) 04/01/25 08: Baso # (Auto) 0.06 K/uL (0.00-0.20) 04/01/25 08: Immature Gran # (Auto) 0.02 K/uL (0.01-0.20) 04/01/25 08:25 VBG pH 7.44 (7.36-7.41) H 04/01/25 08: VBG pCO2 39 mmHg (38-50) 04/01/25 08: VBG pO2 42 mmHg 04/01/25 08: VBG HCO3 27 mmol/L 04/01/25 08:25 VBG O2 Saturation 74.4 % 04/01/25 08:25 VBG Base Excess 2.3 mEq/L 04/01/25 08: POC Sodium 134 mmol/L (135-144) L 04/01/25 08:30 Sodium 138 mmol/L (136-145) 04/01/25 08:25 POC Potassium 3.9 mmol/L (3.3-5.0) 04/01/25 08:30 Potassium 4.0 mmol/L (3.5-5.1) 04/01/25 08: POC Chloride 93 mmol/L (101-112) L 04/01/25 08:30 Chloride 93 mmol/L (98-107) L 04/01/25 08:25 Carbon Dioxide 27 mmol/L (21-32) 04/01/25 08:25 POC Total CO2 25 mmol/L (24-31) 04/01/25 08:30 Anion Gap 18 (3-11) H 04/01/25 08:25 POC Anion Gap 21.0 mmol/L (16-25) 04/01/25 08:30 POC BUN 34 mg/dl (7-18) H 04/01/25 08:30 BUN 36 mg/dl (6-23) H 04/01/25 08:25 Creatinine 10.12 mg/dl (0.6-1.4) H* 04/01/25 08:25 POC Creatinine 10.7 mg/dl 04/01/25 08:30 Est Cr Clr Drug Dosing 12.9 ml/min 04/01/25 08:25 eGFR 6.87 04/01/25 08:25 BUN/Creatinine Ratio 3.6 (10-20) L 04/01/25 08:25 Glucose 126 mg/dl (70-99(Fasting)) H 04/01/25 08:25 POC Glucose (other) 122 mg/dl (70-99) H 04/01/25 08:30 Lactate 1.2 mmol/L (0.4-2.0) 04/01/25 10:19 Calcium 8.2 mg/dl (8.6-10.3) L 04/01/25 08:25 POC Ioniz Calcium Lj 0.95 mmol/l 04/01/25 08:30 Total Bilirubin 1.1 mg/dl (0.2-1.0) H 04/01/25 08:25 AST 35 U/L (13-39) 04/01/25 08:25 ALT 23 U/L (7-52) 04/01/25 08:25 Alkaline Phosphatase 75 U/L (34-104) 04/01/25 08:25 Total Protein 5.6 gm/dl (6.0-8.3) L 04/01/25 08:25 Albumin 3.9 gm/dl (3.4-5.0) 04/01/25 08:25 Globulin 1.7 gm/dl (2.5-4.0) L 04/01/25 08:25 Albumin/Globulin Ratio 2.3 (0.9-2) H 04/01/25 08:[address] 04/01/25 08:32 CT head/brain wo con CLINICAL HISTORY: 20 years-old Male with Seizure. Acute seizure-like episode TECHNIQUE: Multiple axial CT images of the head were obtained without contrast. A dose lowering technique was utilized adhering to the principles of ALARA. CT DOSE: 625.8 mGy.cm COMPARISON: None. FINDINGS: No acute intracranial hemorrhage, midline shift, intracranial mass, h ydrocephalus, territorial ischemia or abnormal extra-axial collection. The calvarium is intact. Disconjugate gaze. The paranasal sinuses, mastoid air cells, and middle ear cavities are clear. IMPRESSION: No acute intracranial abnormality. ACT 112: Negative or not required by law. The above report was generated using voice recognition software. It may contain grammatical, syntax or spelling errors. Electronically signed by: Filemon Gibbs M.D. 04/01/2025 8:57 AM Chest X-Ray 04/01/25 08:38 XR chest 1V portable CLINICAL HISTORY: Shortness of breath. COMPARISON STUDY: Chest radiograph March 24, 2025. FINDINGS: A dual lumen right internal jugular central venous catheter is in place. There is no pneumothorax or pleural effusion. There is mild enlargement of the cardiac silhouette without evidence for pulmonary edema. No consolidation to suggest pneumonia. IMPRESSION: No acute cardiopulmonary findings. ACT 112: Negative or not required by law. Electronically signed by: Magdy Jones M.D. 04/01/2025 9:07 AM PG Care Time/CCT Total # of Minutes Spent Total Time Spent with Patient: Total time spent is greater than 50% in coordination of care (as documented) at patient's floor/unit and/or counseling patient: Coding Level of Care Code 87505 IN/OBS CONSULT LVL 5,80M Diagnoses Hypertensive emergency I16.1 End stage renal disease N18.6
--- NOTE | 2025-04-01 18:01 | CT Scan Report ---
CT head without contrast History: Headache Comparison: None Technique: Using multidetector thin collimation helical acquisition technique, axial, coronal and sagittal CT images from the skull base to the vertex were obtained without intravenous contrast. Dose reduction techniques were achieved by using automatic exposure control and/or adjustment of mA and/or kV according to patient size and/or use of iterative reconstruction technique. Findings: No intracranial hemorrhage, mass-effect, or midline shift. The ventricles are proportionate to the cerebral sulci. The bennett to white matter differentiation of the cerebral hemispheres is preserved. The basal cisterns are patent. The visualized paranasal sinuses are clear. Mastoid air cells are clear. Impression: No acute intracranial pathology. Electronically signed by Raj Batista 04-01-2025 6:01 PM
--- NOTE | 2025-04-01 18:06 | Electrocardiogram Report ---
Test Reason : Blood Pressure : */* mmHG Vent. Rate : 82 BPM Atrial Rate : 82 BPM P-R Int : 144 ms QRS Dur : 100 ms QT Int : 420 ms P-R-T Axes : 67 59 47 degrees QTcB Int : 490 ms Normal sinus rhythm Prolonged QT Abnormal ECG When compared with ECG of 17-Jan-2025 20:31, No significant change was found Confirmed by Raj Lehman ([id number]) on 04/01/2025 6:05:48 PM Referred By: REFERRED SELF Confirmed By: Raj Lehman
[2025-04-01] MEDS: MoRPHine SULFATE 4 MG/ML 1 ML CARP\\VIAL IV PRN (18:12)
[2025-04-01] MEDS: HYDROmorphone INJ 2 MG/ML SYR/VIAL IV STA (20:13)
[2025-04-01] MEDS: LOSARTAN POTASSIUM 50 MG TAB PO SCH (20:16)
[2025-04-01] MEDS ORDERED: Nursing to Pharmacy Communication SCH (20:30)
[2025-04-01] MEDS: MAGNESIUM SULFATE / D5W 1 GM/100 ML BAG IV ONE (22:13)
[2025-04-01] MEDS: diphenhydrAMINE 50 MG/ML VIAL IV STA (22:13)
[2025-04-01] MEDS: HYDROmorphone INJ 2 MG/ML SYR/VIAL IV PRN (22:56)
[2025-04-01 23:17] LABS: Magnesium 2.2 mg/dl (1.7-2.4)
[2025-04-02] MEDS: CHECK CLONIDINE PATCH PLACEMENT SCH (07:58)
[2025-04-02] MEDS: CHOLECALCIFEROL 125 MCG (5,000 UNITS) TAB PO SCH (07:58)
[2025-04-02] MEDS: REMOVE CLONIDINE PATCH SCH (08:05)
[2025-04-02 08:45] LABS: Anion Gap 10.0 (3-11); Blood Urea Nitrogen 45.0 mg/dl (6-23); Calcium 8.5 mg/dl (8.6-10.3); Carbon Dioxide 34.0 mmol/L (21-32); Chloride 93.0 mmol/L (98-107); Creatinine Clr Calc Pharmacy 9.2 ml/min; Glucose 91.0 mg/dl (70-99(Fasting)); Potassium 4.6 mmol/L (3.5-5.1); Sodium 137.0 mmol/L (136-145)
--- NOTE | 2025-04-02 09:06 | Neurology Consultation ---
Date of Consultation April 02, 2025 Assessment & Plan (1) New onset seizure: (2) Hypertensive emergency: History of Present Illness Attending Physician: Sher Vega MD History of Present Illness S: pt with seizure like event after his HD yesterday. also noted for SBP in 220s. pt admitted for seizure work up. no further event. pt does complaint that since yesterday, he is having rt vision problem with essentially blurred and black t/o his rt vision. also small area on left peripheral vision. this has not changed since admission. CT head negative. no weakness. no family hx of seizure. no hx of childhood seizure. lactate slightly elevated. admission HPI: 20-year-old white male with biopsy-proven FS GS producing end- stage renal disease leading to hemodialysis. He developed new onset seizures related to hypertensive emergency today, April 01. He was not feeling well when he was in hemodialysis earlier today. He has been seen in the ED and given intravenous labetalol and started on a nicardipine drip and also parenteral Keppra. Head CT scan on admission is negative for acute findings and chest x- ray is unremarkable. He will be admitted for further evaluation and treatment Allergies Allergy/AdvReac Type Severity Reaction Status Date / Time No Known Allergies Allergy Unknown Verified 04/01/25 10:51 Home Medications Medication Instructions Recorded Confirmed Type hydroxyzine HCl 25 mg tablet 25 mg PO TID PRN anxiety #90 tabs 11/13/24 04/01/25 Rx amlodipine 10 mg tablet 10 mg PO QAM #90 tabs 01/29/25 04/01/25 Rx calcium acetate(phosphat bind) 667 1,334 mg (2 x 667 mg) PO TIDM 90 01/29/25 04/01/25 Rx mg capsule days #540 caps cholecalciferol (vitamin D3) 125 125 mcg PO QAM #90 tabs 01/29/25 04/01/25 Rx mcg (5,000 unit) tablet Medical Marijuana 1 dose PO DIRECTED PRN Other 03/14/25 04/01/25 History clonidine HCl 0.1 mg tablet 0.1 mg PO QAM 03/26/25 04/01/25 History clonidine 0.1 mg/24 hr weekly 0.1 mg transdermal WK 04/01/25 04/01/25 History transdermal patch ketoconazole 2 % topical cream 1 applic topical DIRECTED 04/01/25 04/01/25 History losartan 100 mg tablet 0 mg PO DAILY 04/01/25 04/01/25 History losartan 50 mg tablet 0 mg PO BID 04/01/25 04/01/25 History Patient History Medical History Hx of metabolic acidosis Anticoagulated on Coumadin pt states he has not been taking his Coumadin since apprx mid January 2025 Dialysis patient [facility] in [place] > //mon History of postoperative nausea and vomiting Hx of deep venous thrombosis 01/2024 > right arm > was on warfarin > now DC'ed Cardiac murmur Anemia FSGS (focal segmental glomerulosclerosis) Generalized anxiety disorder Thrombophilia End stage renal disease follows with Dr. Mcdermott - HD 3x per week:[facility] in [place] > //mon CKD (chronic kidney disease) Hypertension recently added clonidine 0.[address] mcdermott Surgical History S/P hemodialysis catheter insertion (12/2024) perm cath for HD- right jugular S/P left knee arthroscopy H/O hernia repair Family History Mother Diabetes Grandfather (Maternal) Hypertension Other No family history of adverse response to anesthesia Denies family history of Ovarian cancer Prostate cancer Myocardial infarction Breast cancer Lung cancer Stroke Social History Smoking Status: Never smoker Tobacco Type: Cigarettes Second Hand Exposure: No; Do You Dip or Chew Tobacco: No; Hx Alcohol Use: No Hx Substance Use: Yes Last Used Substance: Unknown Substance Use Type Other:: medical card daily > advised Preferred Language: Ukrainian Communication Ability: Effective Visual Impairment: No Limitations Hearing Ability: Normal Rink Rat Required: No Beliefs That Will Affect Care: None marital status: Single Current Living Situation: Family Current Living Situation Comment: lives at home with parents current occupational status: employed 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 How many Children do You have: 0 Other Information That Helps Us Care for You: No Feels Safe at Home: Yes Safety Concerns: Feels Safe At This Time Childhood Exposure to Second-Hand Smoke: No caffeine: No Dental Care, Regularly: Yes Physical Activity Frequency: 5-6 Times per Week Seatbelt Use: always Sunscreen Use: No Assistive Devices: None Exam (Neuro) Physical Exam: HEENT: normocephalic grossly Neuro: Mental: AOx4, fluent speech, normal comprehension, no apraxia, no L/R confusion, no neglect CN: PERRL, Full EOM, red color desaturation on rt eye, peripheral vision was grossly intact b/l but his rt eye central vision was noted for scotoma. symmetric face, midline T/U/P, rt mucous injury from bite. Motor: No abnormal movements, normal tone, 5/5 t/o bilaterally Sens: intact to touch b/l grossly Coord: intact FNT b/l DTR: 2+ sym b/l Impression: 20 yo male with ESRD, s/p seizure like event in setting of HTN emergency after HD. Pt with no further events but with rt vision central scotoma, concerning for possible PRESS or occipital lesion. Recommendations: please get mri brain without CORTES (informed hospitalist). ok to stop keppra, no need for AED no need for EEG strict BP control with SBP less than 160 Chart reviewed I have spent more than 50% educating patient about potential diagnosis and neurological evaluation and coordinating care with patient's treatment team. Total time spent (including chart review and coordination of care): 60 min (this includes chart review). Results & Data Vital Signs (Past 12 Hours) Vital Signs Temp Pulse Resp BP Pulse Ox O2 Del Method 04/02/25 08:29 164/99 H 04/02/25 07:51 36.9 C 72 20 151/92 H 97 Room Air 04/02/25 06:34 78 149/95 H 04/02/25 05:37 82 168/99 H 04/02/25 04:37 78 169/96 H 04/02/25 03:32 36.9 C 89 16 157/98 H 95 Room Air 04/02/25 02:30 69 157/96 H 04/02/25 01:30 86 162/93 H 04/02/25 00:28 89 167/100 H 04/01/25 23:00 75 156/92 H 04/01/25 22:39 37.0 C 83 18 155/89 H 94 Room Air 04/01/25 22:00 85 167/91 H 07/08/25 21:00 70 170/99 H PG Care Time/CCT Total # of Minutes Spent Total Time Spent with Patient: Total time spent is greater than 50% in coordination of care (as documented) at patient's floor/unit and/or counseling patient: Coding Level of Care Code 05482 IN/OBS CONSULT LVL 4,60M Diagnoses New onset seizure R56.9 Hypertensive emergency I16.1
--- NOTE | 2025-04-02 09:11 | Nephrology Progress Note ---
Date of Service April 02, 2025 Assessment & Plan (1) Hypertensive emergency: Plan: * Patient admitted with hypertensive emergency * Has been weaned off nicardipine gtt overnight * SBP has been 160-170 mmHg off nicardipine gtt * amlodipine 10 mg qAM and losartan 50 mg BID has been restarted * Start furosemide 80 mg BID * Monitor BP, UO * Await MRI results (2) End stage renal disease: Plan: * Volume status and electrolyte balance are acceptable. Will plan next HD for am * Outpatient HD Rx: MWF 3.75 Fx CorAL80 BFR 400/QD800 2K 2Ca 1Mg Na140 HCO3 40 EDW 77.9kg * BMP, CBC in a.m. Admission and Anticipated Discharge Date Admission Date: April 01, 2025 Subjective Mr. Ramos was evaluated in his hospital room this morning. His JUAREZ has resolved but he still has a partial R visual deficit. He is scheduled for MRI this morning. No further seizure activity Review of Systems Constitutional: no fever Eyes: + spots in vision (R eye) Ear, Nose, Mouth, Throat: no problem reported Respiratory: no cough and no dyspnea Cardiovascular: no chest pain and no edema Gastrointestinal: no abdominal pain, no nausea, no vomiting and no diarrhea/loose stools Genitourinary: no difficulty urinating Integumentary: no rash Neurologic: no seizure-like activity and no headache(s) Physical Exam Constitutional: not in distress Eyes: PERRL, conjunctivae normal, anicteric sclerae ENMT: external ear and nose normal, oropharynx normal Neck: trachea midline, no thyromegaly (R IJ TCC with clean dry dressing in place) Respiratory: normal respiratory effort, lungs clear to auscultation Cardiovascular: RRR, no murmur, no edema Gastrointestinal (Abdomen): normal bowel sounds, soft, nontender, no hepatosplenomegaly Musculoskeletal: Extremities: no cyanosis and no clubbing Skin: no rashes, warm and dry Neurologic: no focal motor deficits Results & Data Vital Signs (Past 12 Hours) Vital Signs Temp Pulse Resp BP Pulse Ox O2 Del Method 04/02/25 08:29 164/99 H 04/02/25 07:51 36.9 C 72 20 151/92 H 97 Room Air 04/02/25 06:34 78 149/95 H 04/02/25 05:37 82 168/99 H 04/02/25 04:37 78 169/96 H 04/02/25 03:32 36.9 C 89 16 157/98 H 95 Room Air 04/02/25 02:30 69 157/96 H 04/02/25 01:30 86 162/93 H 04/02/25 00:28 89 167/100 H 04/01/25 23:00 75 156/92 H 04/01/25 22:39 37.0 C 83 18 155/89 H 94 Room Air 04/01/25 22:00 85 167/91 H PG Care Time/CCT Total # of Minutes Spent Total Time Spent with Patient: Total time spent is greater than 50% in coordination of care (as documented) at patient's floor/unit and/or counseling patient: Coding Level of Care Code 42148 SUB INP/OBS CARE 3/50MIN Diagnoses Hypertensive emergency I16.1 End stage renal disease N18.6
[2025-04-02] MEDS: FUROSEMIDE 80 MG TAB PO SCH (10:26)
--- NOTE | 2025-04-02 12:56 | Magnetic Resonance Report ---
MR brain wo con HISTORY: 20 years-old Male HTN emergency, possible PRES acute seizure like activity COMPARISON: Head CT 04/01/2025 TECHNIQUE: Multiplanar multisequence MRI of the brain was obtained without IV contrast FINDINGS: No restricted diffusion to suggest acute or subacute infarct. Multifocal areas of increased T2/FLAIR signal are noted, cortically based and within the subcortical distributions of the cerebrum with a pa rieto-occipital predominant distribution. Additional foci noted within the right temporal, left periv entricular basal ganglia, and right frontal distributions. 2 cm focus is noted within the pontine bra instem on image 9 series 4. No acute intracranial hemorrhage, midline shift, hydrocephalus or definite intracranial mass. Cerebra l venous sinuses and major arterial flow voids appear patent. Small polyps in the maxillary sinuses. Orbits and soft tissues are within normal limits. IMPRESSION: 1. Multifocal areas of abnormal T2/FLAIR signal within the cerebrum and pontine brainstem, likely rel ated to PRES. A precautionary one-month follow-up brain MRI with and without IV contrast recommended. 2. No acute or subacute infarct. ACT 112: Negative or not required by law. The above report was generated using voice recognition software. It may contain grammatical, syntax o r spelling errors. Electronically signed by: Filemon Gibbs M.D. 04/02/2025 12:53 PM
--- NOTE | 2025-04-02 14:16 | Consultation ---
Date of Consultation April 02, 2025 Assessment & Plan (1) End stage renal disease: Pt currently on HD via R IJ permcath. Scheduled for AVF creation wednesday 04/04, however, Dr Peña recommends postponement d/t current admission, HTN emergency and associated sx. Will reschedule in near future. Pt aware and agreeable. Please call if needed. History of Present Illness Reason for Consultation: ESRD Attending Physician: Sher Vega MD History of Present Illness 20 yo m with hx of ESRD on HD, HTN, admitted with htn emergency and seizure, seen in consultation today to discuss upcoming AVF creation procedure. Pt states he wishes to postpone his AVF creation that is scheduled for Monday, 04/04, d/t current medical concerns. States difficulty with R eye vision, fatigue, JUAREZ. Denies fever, chest pain, SOB, abd pain, N/V, rest pain, claudication, problems with IJ permcath, other complaints. Allergies Allergy/AdvReac Type Severity Reaction Status Date / Time No Known Allergies Allergy Unknown Verified 04/01/25 10:51 Home Medications Medication Instructions Recorded Confirmed Type hydroxyzine HCl 25 mg tablet 25 mg PO TID PRN anxiety #90 tabs 11/13/24 04/01/25 Rx amlodipine 10 mg tablet 10 mg PO QAM #90 tabs 01/29/25 04/01/25 Rx calcium acetate(phosphat bind) 667 1,334 mg (2 x 667 mg) PO TIDM 90 01/29/25 04/01/25 Rx mg capsule days #540 caps cholecalciferol (vitamin D3) 125 125 mcg PO QAM #90 tabs 01/29/25 04/01/25 Rx mcg (5,000 unit) tablet Medical Marijuana 1 dose PO DIRECTED PRN Other 03/14/25 04/01/25 History clonidine HCl 0.1 mg tablet 0.1 mg PO QAM 03/26/25 04/01/25 History clonidine 0.1 mg/24 hr weekly 0.1 mg transdermal WK 04/01/25 04/01/25 History transdermal patch ketoconazole 2 % topical cream 1 applic topical DIRECTED 04/01/25 04/01/25 History losartan 100 mg tablet 0 mg PO DAILY 04/01/25 04/01/25 History losartan 50 mg tablet 0 mg PO BID 04/01/25 04/01/25 History Patient History Medical History Hx of metabolic acidosis Anticoagulated on Coumadin pt states he has not been taking his Coumadin since apprx mid January 2025 Dialysis patient [facility] in [place] > tues/thurs/sat History of postoperative nausea and vomiting Hx of deep venous thrombosis 01/2024 > right arm > was on warfarin > now DC'ed Cardiac murmur Anemia FSGS (focal segmental glomerulosclerosis) Generalized anxiety disorder Thrombophilia End stage renal disease follows with Dr. Woods - HD 3x per week:[facility] in [place] > tues/thurs/sat CKD (chronic kidney disease) Hypertension recently added clonidine 0.[address] woods Surgical History S/P hemodialysis catheter insertion (12/2024) perm cath for HD- right jugular S/P left knee arthroscopy H/O hernia repair Family History Mother Diabetes Grandfather (Maternal) Hypertension Other No family history of adverse response to anesthesia Denies family history of Ovarian cancer Prostate cancer Myocardial infarction Breast cancer Lung cancer Stroke Social History Smoking Status: Never smoker Tobacco Type: Cigarettes Smoking End Date: quit 1 year ago; Second Hand Exposure: No; Do You Dip or Chew Tobacco: No; Tobacco Cessation Education Requested by Patient: No Hx Alcohol Use: No Hx Substance Use: Yes Last Used Substance: Unknown Substance Use Type Other:: medical card daily > advised Preferred Language: Salvadorean Communication Ability: Effective Visual Impairment: No Limitations Hearing Ability: Normal Photogrammetrist Required: No Beliefs That Will Affect Care: None marital status: Single Current Living Situation: Family Current Living Situation Comment: lives at home with parents current occupational status: employed 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 How many Children do You have: 0 Other Information That Helps Us Care for You: No Feels Safe at Home: Yes Safety Concerns: Feels Safe At This Time Childhood Exposure to Second-Hand Smoke: No caffeine: No Dental Care, Regularly: Yes Physical Activity Frequency: 5-6 Times per Week Seatbelt Use: always Sunscreen Use: No Assistive Devices: None Review of Systems Review of Systems: All systems reviewed & are unremarkable except as noted in HPI & below Physical Exam Constitutional: WD/WN, vitals as above cooperative and comfortable; not in distress Respiratory: normal respiratory effort, lungs clear to auscultation Auscultation: + diminished lung sounds Cardiovascular: Rate/Rhythm: regular rate and regular rhythm Vessels: posterior tibial pulses present, dorsalis pedis pulses present and radial pulses present Extremities: normal capillary refill; no edema Chest (Breasts): Chest: + vascular access device or port (R IJ no erythema or drainage or tendernss) Gastrointestinal (Abdomen): Inspection/Auscultation: abdomen normal to inspection and normal bowel sounds Percussion/Palpation: abdomen soft; abdomen nontender Musculoskeletal: no cyanosis or clubbing, extremities motor strength 5/5 Skin: no rashes, warm and dry Neurologic: moves all extremities and awake; no focal motor deficits and not confused Psychiatric: A+Ox3, euthymic affect Results & Data Vital Signs (Past 12 Hours) Vital Signs Temp Pulse Resp BP Pulse Ox O2 Del Method 04/02/25 12:45 199/126 H 04/02/25 10:59 37 C 77 16 180/115 H 98 Room Air 04/02/25 10:19 198/126 H 04/02/25 09:25 190/116 H 04/02/25 08:29 164/99 H 04/02/25 07:51 36.9 C 72 20 151/92 H 97 Room Air 04/02/25 06:34 78 149/95 H 04/02/25 05:37 82 168/99 H 04/02/25 04:37 78 169/96 H 04/02/25 03:32 36.9 C 89 16 157/98 H 95 Room Air 04/02/25 02:30 69 157/96 H
--- NOTE | 2025-04-02 14:56 | Hospitalist Progress Note ---
Date of Service April 02, 2025 Assessment & Plan (1) New onset seizure: Plan: Probably related to hypertensive emergency. Initial head CT scan unremarkable. Follow-up head CT scan due to presence of severe headache yesterday, April 01, was also negative. Neurology entry noted. Keppra has been discontinued. (2) PRES (posterior reversible encephalopathy syndrome): Plan: Central scotoma OD. Brain MRI scan done today, April 02, consistent with MT ES. Clonidine has been uptitrated and hydralazine added for better blood pressure control. Supportive care (3) Hypertensive emergency: Plan: Nicardipine drip has been switched back to his usual oral amlodipine. Clonidine has been uptitrated. Hydralazine added. Continue telemetry. (4) End stage renal disease: Plan: Due to biopsy-proven FSGS. Nephrology consultation appreciated. He will undergo hemodialysis again tomorrow, April 03. Plan Anticipate eventual discharge to home within the next 2 to 3 days Admission and Anticipated Discharge Date Admission Date: April 01, 2025 Subjective Clinically improved. His headache has resolved. Unfortunately, he has developed a central scotoma involving OD. Brain MRI scan is consistent with PRES. hydralazine has been started and clonidine uptitrated for better blood pressure control. Appreciate neurology consultation and recommendations. Nephrology entry noted. Repeat hemodialysis again tomorrow, April 03. Review of Systems 2 Review of Systems: Constitutionalno fever or chills. Somewhat lethargic after seizure activity ENTcentral scotoma OD. Denies double vision. No epistaxis, no sore throat Respiratoryno cough, no wheezing, no shortness of breath Cardiacno palpitations, no chest pain, no syncope Monserrat nausea, vomiting, diarrhea, melena, hematochezia GUno urinary retention, no urinary incontinence, no dysuria, no hematuria Musculoskeletalno joint pain, no muscle tenderness Skinno bruising, no rashes, no pruritus Neurono isolated weakness, no paresthesia, no weakness Psychno depression, no anxiety Physical Exam 2 Physical Exam: General-alert and oriented x 3. No fever HEENT-head atraumatic and normocephalic, pupils equal and reactive to light, extraocular muscles intact Neck-no lymphadenopathy or thyromegaly, trachea midline Chest-clear to auscultation. No rales, wheezing or rhonchi. Dialysis catheter in place in the right upper anterior chest wall Cardiac-regular rate and rhythm, normal S1 and S2 Abdomen-normal bowel sounds, no hepatosplenomegaly Extremities-no cyanosis, clubbing, or edema Neuro-cranial nerves II through XII intact, motor and sensory function within normal limits, strength symmetrical, no focal deficits Psych-normal affect, normal mood Results & Data Results & Data Vital Signs (Past 12 Hours) Vital Signs Temp Pulse Resp BP Pulse Ox O2 Del Method 04/02/25 14:50 190/115 H 04/02/25 12:45 199/126 H 04/02/25 10:59 37 C 77 16 180/115 H 98 Room Air 04/02/25 10:19 198/126 H 04/02/25 09:25 190/116 H 04/02/25 08:29 164/99 H 04/02/25 07:51 36.9 C 72 20 151/92 H 97 Room Air 04/02/25 06:34 78 149/95 H 04/02/25 05:37 82 168/99 H 04/02/25 04:37 78 169/96 H 04/02/25 03:32 36.9 C 89 16 157/98 H 95 Room Air Laboratory Results 04/01/25 08:25 04/02/25 07:51 PG Care Time/CCT Total # of Minutes Spent Total Time Spent with Patient: Total time spent is greater than 50% in coordination of care (as documented) at patient's floor/unit and/or counseling patient: Coding Level of Care Code 45732 SUB INP/OBS CARE 3/50MIN Diagnoses New onset seizure R56.9 PRES (posterior reversible encephalopathy syndrome) I67.83 Hypertensive emergency I16.1 End stage renal disease N18.6
[2025-04-02] MEDS ORDERED: levETIRAcetam 500 MG/5 ML VIAL **1000mg IV SCH (16:00)
[2025-04-02] MEDS: ONDANSETRON INJ 2 MG/ML 2 ML VIAL IV PRN (17:25)
[2025-04-02] MEDS ORDERED: Nursing to Pharmacy Communication SCH (23:45)
[2025-04-03] MEDS: CHECK CLONIDINE PATCH PLACEMENT SCH (06:10)
[2025-04-03] MEDS ORDERED: SODIUM CHLORIDE 0.9% 1,000 ML IV PRN (07:00)
[2025-04-03 07:39] LABS: Anion Gap 9.0 (3-11); Blood Urea Nitrogen 54.0 mg/dl (6-23); Calcium 8.4 mg/dl (8.6-10.3); Carbon Dioxide 33.0 mmol/L (21-32); Chloride 92.0 mmol/L (98-107); Creatinine Clr Calc Pharmacy 7.7 ml/min; Glucose 82.0 mg/dl (70-99(Fasting)); Potassium 5.4 mmol/L (3.5-5.1); Sodium 134.0 mmol/L (136-145)
--- NOTE | 2025-04-03 08:57 | Nephrology Progress Note ---
Date of Service April 03, 2025 Assessment & Plan (1) Hypertensive emergency: Plan: * Patient admitted with hypertensive emergency * Initially managed w/ IV nicardipine. Now transitioned to oral amlodipine 10 mg qAM and losartan 50 mg BID * Furosemide 80 mg BID added yesterday. Patient reports brisk UO but recorded UO < 500 cc last 24 hours * Agree w/ starting hydralazine 50 mg TID * Will challenge EDW during HD today. If BP remains elevated despite UF, will need to titrate hydralazine (2) End stage renal disease: Plan: * Volume status and electrolyte balance are acceptable. Will plan next HD for am * Outpatient HD Rx: MWF 3.75 Fx CorAL80 BFR 400/QD800 2K 2Ca 1Mg Na140 HCO3 40 EDW 77.9kg * BMP, CBC in a.m. Admission and Anticipated Discharge Date Admission Date: April 01, 2025 Subjective Mr. Ramos was evaluated on HD this morning. JUAREZ has resolved but visual s cotomas persist. BP is trending up off nicardipine gtt Review of Systems Constitutional: no fever Eyes: + spots in vision (bilteral) Ear, Nose, Mouth, Throat: no problem reported Respiratory: no cough and no dyspnea Cardiovascular: no chest pain and no edema Gastrointestinal: no abdominal pain, no nausea, no vomiting and no diarrhea/loose stools Genitourinary: no difficulty urinating Integumentary: no rash Neurologic: no seizure-like activity and no headache(s) Physical Exam Constitutional: not in distress Eyes: PERRL, conjunctivae normal, anicteric sclerae ENMT: external ear and nose normal, oropharynx normal Neck: trachea midline, no thyromegaly (R IJ TCC with clean dry dressing in place) Respiratory: normal respiratory effort, lungs clear to auscultation Cardiovascular: RRR, no murmur, no edema Gastrointestinal (Abdomen): normal bowel sounds, soft, nontender, no hepatosplenomegaly Musculoskeletal: Extremities: no cyanosis and no clubbing Skin: no rashes, warm and dry Neurologic: no focal motor deficits Results & Data Vital Signs (Past 12 Hours) Vital Signs Temp Pulse Pulse Resp BP Pulse Ox O2 Del Method 04/03/25 07:47 36.5 C 75 20 197/116 H 93 Room Air 04/03/25 06:32 189/105 H 04/03/25 03:10 37.0 C 69 18 180/113 H 93 Room Air 04/02/25 22:34 36.8 C 82 18 172/98 H 96 Room Air 04/02/25 22:00 76 04/02/25 22:00 182/95 H 04/02/25 21:09 200/106 H O2 Flow Rate 04/03/25 07:47 04/03/25 06:32 04/03/25 03:10 04/02/25 22:34 04/02/25 22:00 04/02/25 22:00 04/02/25 21:09 3 Laboratory Results Laboratory Results - last 24 hr 04/03/25 06:38 Sodium 134 L Potassium 5.4 H Chloride 92 L Carbon Dioxide 33 H Anion Gap 9 BUN 54 H Creatinine 16.96 H* D Est Cr Clr Drug Dosing 7.7 eGFR 3.70 BUN/Creatinine Ratio 3.2 L Glucose 82 Calcium 8.4 L Diagnostic Findings 04/02/25 brain MRI: 1. Multifocal areas of abnormal T2/FLAIR signal within the cerebrum and pontine brainstem, likely related to PRES. A precautionary one-month follow-up brain MRI with and without IV contrast recommended. 2. No acute or subacute infarct. PG Care Time/CCT Total # of Minutes Spent Total Time Spent with Patient: Total time spent is greater than 50% in coordination of care (as documented) at patient's floor/unit and/or counseling patient: Coding Level of Care Code 33600 SUB INP/OBS CARE 3/50MIN Diagnoses Hypertensive emergency I16.1 End stage renal disease N18.6
--- NOTE | 2025-04-03 13:49 | Hospitalist Progress Note ---
Date of Service April 03, 2025 Assessment & Plan (1) New onset seizure: Plan: Probably related to hypertensive emergency. Initial head CT scan unremarkable. Follow-up head CT scan due to presence of severe headache on April 01 was also negative. Neurology entry noted. Keppra has been discontinued. (2) PRES (posterior reversible encephalopathy syndrome): Plan: Central scotoma OD. Brain MRI scan done on April 02 consistent with PRES. Clonidine has been uptitrated and hydralazine added for better blood pressure control. Hydralazine dosage was uptitrated today, April 03 and will possibly require further up titration. Neurology has stated that PRES related neurological deficits may take at least a week to resolve. Supportive care (3) Hypertensive emergency: Plan: Nicardipine drip has been switched back to his usual oral amlodipine. Clonidine has been uptitrated. Hydralazine started on April 02 and uptitrated today, April 03. Continue telemetry. (4) End stage renal disease: Plan: Due to biopsy-proven FSGS. Nephrology consultation appreciated. He underwent hemodialysis again today, April 03 Plan Anticipate eventual discharge to home within the next day or 2 Admission and Anticipated Discharge Date Admission Date: April 01, 2025 Subjective The patient was seen while in hemodialysis this morning. Case discussed with nephrology. Hydralazine has been uptitrated to 50 mg 3 times daily. Probable need to further uptitrate to 100 mg 3 times a day going forward. Neurology states that the PRES symptoms will take at least a week to resolve. Review of Systems 2 Review of Systems: Constitutionalno fever or chills. Somewhat lethargic after seizure activity ENTcentral scotoma OD. Denies double vision. No epistaxis, no sore throat Respiratoryno cough, no wheezing, no shortness of breath Cardiacno palpitations, no chest pain, no syncope Monserrat nausea, vomiting, diarrhea, melena, hematochezia GUno urinary retention, no urinary incontinence, no dysuria, no hematuria Musculoskeletalno joint pain, no muscle tenderness Skinno bruising, no rashes, no pruritus Neurono isolated weakness, no paresthesia, no weakness. Right central scotoma persist Psychno depression, no anxiety Physical Exam 2 Physical Exam: General-alert and oriented x 3. No fever HEENT-head atraumatic and normocephalic, pupils equal and reactive to light, extraocular muscles intact Neck-no lymphadenopathy or thyromegaly, trachea midline Chest-clear to auscultation. No rales, wheezing or rhonchi. Dialysis catheter in place in the right upper anterior chest wall Cardiac-regular rate and rhythm, normal S1 and S2 Abdomen-normal bowel sounds, no hepatosplenomegaly Extremities-no cyanosis, clubbing, or edema Neuro-cranial nerves II through XII intact, motor and sensory function within normal limits, strength symmetrical. Right central scotoma persists Psych-normal affect, normal mood Results & Data Results & Data Vital Signs (Past 12 Hours) Vital Signs Temp Pulse Pulse Resp BP BP Pulse Ox 04/03/25 12:35 36.6 C 69 20 187/107 H 94 04/03/25 12:22 36.8 C 63 179/108 H 04/03/25 12:00 63 180/115 H 04/03/25 11:45 73 181/120 H 04/03/25 11:30 62 172/109 H 04/03/25 11:15 66 174/106 H 04/03/25 11:00 62 181/112 H 04/03/25 10:45 68 165/101 H 04/03/25 10:30 67 185/97 H 04/03/25 10:15 67 174/108 H 04/03/25 10:02 77 177/108 H 04/03/25 10:00 69 177/108 H 04/03/25 09:30 71 182/110 H 04/03/25 09:02 81 193/123 H 04/03/25 08:57 36.6 C 81 04/03/25 08:00 70 04/03/25 07:47 36.5 C 75 20 197/116 H 93 04/03/25 06:32 189/105 H 04/03/25 03:10 37.0 C 69 18 180/113 H 93 O2 Del Method 04/03/25 12:35 Room Air 04/03/25 12:22 04/03/25 12:00 04/03/25 11:45 04/03/25 11:30 04/03/25 11:15 04/03/25 11:00 04/03/25 10:45 04/03/25 10:30 04/03/25 10:15 04/03/25 10:02 04/03/25 10:00 04/03/25 09:30 04/03/25 09:02 04/03/25 08:57 04/03/25 08:00 04/03/25 07:47 Room Air 04/03/25 06:32 04/03/25 03:10 Room Air Laboratory Results 04/01/25 08:25 04/03/25 06:38 PG Care Time/CCT Total # of Minutes Spent Total Time Spent with Patient: Total time spent is greater than 50% in coordination of care (as documented) at patient's floor/unit and/or counseling patient: Coding Level of Care Code 70393 SUB INP/OBS CARE 3/50MIN Diagnoses New onset seizure R56.9 PRES (posterior reversible encephalopathy syndrome) I67.83 Hypertensive emergency I16.1 End stage renal disease N18.6
[2025-04-04 07:16] LABS: Anion Gap 8.0 (3-11); Blood Urea Nitrogen 42.0 mg/dl (6-23); Calcium 8.5 mg/dl (8.6-10.3); Carbon Dioxide 29.0 mmol/L (21-32); Chloride 97.0 mmol/L (98-107); Creatinine Clr Calc Pharmacy 8.8 ml/min; Glucose 81.0 mg/dl (70-99(Fasting)); Potassium 5.4 mmol/L (3.5-5.1); Sodium 134.0 mmol/L (136-145)
[2025-04-04] MEDS ORDERED: SODIUM CHLORIDE 0.9% 1,000 ML IV PRN (09:01)
--- NOTE | 2025-04-04 09:04 | Nephrology Progress Note ---
Date of Service April 04, 2025 Assessment & Plan (1) Hypertensive emergency: Plan: * Patient admitted with hypertensive emergency * Initially managed w/ IV nicardipine. Now transitioned to oral amlodipine 10 mg qAM, losartan 50 mg BID, hydralazine 100 mg TID and Catapress TTS-3 * Furosemide 80 mg BID added. Patient is nonoliguric * Will provide HD today for continued UF. If BP responds to ultrafiltration, will then attempt to consolidate medical regimen * Will order TSH, random cortisol, plasma catecholamines to assess for secondary causes. Note that 10/19 renal US was negative for significant asymmetry and patient has been on maximum dose ARB therapy (2) End stage renal disease: Plan: * Volume status and electrolyte balance are acceptable. Will plan next HD for am * Outpatient HD Rx: MWF 3.75 Fx CorAL80 BFR 400/QD800 2K 2Ca 1Mg Na140 HCO3 40 EDW 77.9kg * BMP, CBC in a.m. Admission and Anticipated Discharge Date Admission Date: April 01, 2025 Subjective Mr. Ramos reports ongoing JUAREZ this morning. He required dilaudid. HD completed yesterday for 3.3 L UF. Post treatment refill was + indicating that patient remains above EDW. SBP 160-170 mmHg this am. Patient is agreeable to HD today for ongoing UF Review of Systems Constitutional: no fever Eyes: + spots in vision (bilteral) Ear, Nose, Mouth, Throat: no problem reported Respiratory: no cough and no dyspnea Cardiovascular: no chest pain and no edema Gastrointestinal: no abdominal pain, no nausea, no vomiting and no diarrhea/loose stools Genitourinary: no difficulty urinating Integumentary: no rash Neurologic: no seizure-like activity and no headache(s) Physical Exam Constitutional: not in distress Eyes: PERRL, conjunctivae normal, anicteric sclerae ENMT: external ear and nose normal, oropharynx normal Neck: trachea midline, no thyromegaly (R IJ TCC with clean dry dressing in place) Respiratory: normal respiratory effort, lungs clear to auscultation Cardiovascular: RRR, no murmur, no edema Gastrointestinal (Abdomen): normal bowel sounds, soft, nontender, no hepatosplenomegaly Musculoskeletal: Extremities: no cyanosis and no clubbing Skin: no rashes, warm and dry Neurologic: no focal motor deficits Results & Data Vital Signs (Past 12 Hours) Vital Signs Temp Pulse Pulse Resp BP Pulse Ox O2 Del Method 04/04/25 07:41 36.7 C 90 20 161/86 H 100 Room Air 04/04/25 06:02 71 173/104 H 04/04/25 03:13 37 C 68 16 174/101 H 96 Room Air 04/03/25 22:49 36.7 C 70 12 160/93 H 95 Room Air 04/03/25 22:00 80 Laboratory Results Laboratory Results - last 24 hr 04/04/25 05:46 Sodium 134 L Potassium 5.4 H Chloride 97 L Carbon Dioxide 29 Anion Gap 8 BUN 42 H Creatinine 14.77 H* D Est Cr Clr Drug Dosing 8.8 eGFR 4.37 BUN/Creatinine Ratio 2.8 L Glucose 81 Calcium 8.5 L PG Care Time/CCT Total # of Minutes Spent Total Time Spent with Patient: Total time spent is greater than 50% in coordination of care (as documented) at patient's floor/unit and/or counseling patient: Coding Level of Care Code 75447 SUB INP/OBS CARE 3/50MIN Diagnoses Hypertensive emergency I16.1 End stage renal disease N18.6
[2025-04-04] MEDS: HEPARIN SOD (PORCINE) 1000 UNIT/ML IV ONE (09:47)
--- NOTE | 2025-04-04 11:11 | Hospitalist Progress Note ---
Date of Service April 04, 2025 Assessment & Plan (1) New onset seizure: Plan: Appear to be related to hypertensive emergency. Initial head CT scan unremarkable. Follow-up head CT scan due to presence of severe headache on April 01 was also negative. Neurology entry noted. Keppra has been discontinued. (2) PRES (posterior reversible encephalopathy syndrome): Plan: He developed a central scotoma OD. Brain MRI scan done on April 02 consistent with PRES. Clonidine has been uptitrated and hydralazine added for better blood pressure control. Hydralazine dosage was uptitrated again today, April 04. Neurology has stated that PRES related neurological deficits may take at least a week to resolve. Supportive care (3) Hypertensive emergency: Plan: Nicardipine drip has been switched back to his usual oral amlodipine. Clonidine has been uptitrated. Hydralazine started on April 02 and uptitrated on April 03 and again today, April 04. Losartan discontinued due to hyperkalemia. Continue telemetry. (4) End stage renal disease: Plan: Due to biopsy-proven FSGS. Nephrology consultation appreciated. He underwent hemodialysis again today, April 04 Plan Anticipate eventual discharge to home within the next 2 to 3 days Admission and Anticipated Discharge Date Admission Date: April 01, 2025 Subjective The patient was seen while in hemodialysis. Blood pressure has now improved to systolic 160-170 range. Hydralazine uptitrated again today, April 04. Losartan has been discontinued due to hyperkalemia. Potassium level 5.4 today. Case discussed with nephrology. Hopefully he can go home in the next 2 to 3 days. Review of Systems 2 Review of Systems: Constitutionalno fever or chills. Somewhat lethargic after seizure activity ENTcentral scotoma OD. Denies double vision. No epistaxis, no sore throat Respiratoryno cough, no wheezing, no shortness of breath Cardiacno palpitations, no chest pain, no syncope Monserrat nausea, vomiting, diarrhea, melena, hematochezia GUno urinary retention, no urinary incontinence, no dysuria, no hematuria Musculoskeletalno joint pain, no muscle tenderness Skinno bruising, no rashes, no pruritus Neurono isolated weakness, no paresthesia, no weakness. Right central scotoma persist Psychno depression, no anxiety Physical Exam 2 Physical Exam: General-alert and oriented x 3. No fever HEENT-head atraumatic and normocephalic, pupils equal and reactive to light, extraocular muscles intact Neck-no lymphadenopathy or thyromegaly, trachea midline Chest-clear to auscultation. No rales, wheezing or rhonchi. Dialysis catheter in place in the right upper anterior chest wall Cardiac-regular rate and rhythm, normal S1 and S2 Abdomen-normal bowel sounds, no hepatosplenomegaly Extremities-no cyanosis, clubbing, or edema Neuro-cranial nerves II through XII intact, motor and sensory function within normal limits, strength symmetrical. Right central scotoma persists Psych-normal affect, normal mood Results & Data Results & Data Vital Signs (Past 12 Hours) Vital Signs Temp Pulse Pulse Resp BP BP Pulse Ox 04/04/25 11:00 66 166/91 H 04/04/25 10:30 65 172/103 H 04/04/25 10:00 66 188/118 H 04/04/25 09:30 65 189/121 H 04/04/25 09:20 36.6 C 64 04/04/25 07:41 36.7 C 90 20 161/86 H 100 04/04/25 06:02 71 173/104 H 04/04/25 03:13 37 C 68 16 174/101 H 96 O2 Del Method 04/04/25 11:00 04/04/25 10:30 04/04/25 10:00 04/04/25 09:30 04/04/25 09:20 04/04/25 07:41 Room Air 04/04/25 06:02 04/04/25 03:13 Room Air Laboratory Results 04/01/25 08:25 04/04/25 05:46 PG Care Time/CCT Total # of Minutes Spent Total Time Spent with Patient: Total time spent is greater than 50% in coordination of care (as documented) at patient's floor/unit and/or counseling patient: Coding Level of Care Code 76974 SUB INP/OBS CARE 3/50MIN Diagnoses New onset seizure R56.9 PRES (posterior reversible encephalopathy syndrome) I67.83 Hypertensive emergency I16.1 End stage renal disease N18.6
[2025-04-04] MEDS: HEPARIN SOD (PORCINE) 1000 UNIT/ML IV SCH (11:55)
[2025-04-04] MEDS: PROMETHAZINE 6.25 MG/50.25 ML BAG IV STA (13:23)
[2025-04-05 05:52] LABS: Hematocrit (blood only) 33.1 % (42.0-52.0); Hemoglobin 11.3 g/dl (14.0-18.0); Mean Corpuscular Hemoglobin 31.1 pg (25.0-34.0); Mean Corpuscular Volume 91.2 fL (80.0-100.0); Platelet Count 108 K/uL (130-400); RDW Standard Deviation 47.7 fL (36.4-46.3); Red Blood Count 3.63 M/uL (4.70-6.10); White Blood Count 4.79 K/ul (4.8-10.8)
[2025-04-05 06:09] LABS: Anion Gap 8.0 (3-11); Blood Urea Nitrogen 38.0 mg/dl (6-23); Calcium 8.5 mg/dl (8.6-10.3); Carbon Dioxide 27.0 mmol/L (21-32); Chloride 98.0 mmol/L (98-107); Creatinine Clr Calc Pharmacy 9.9 ml/min; Glucose 95.0 mg/dl (70-99(Fasting)); Potassium 5.1 mmol/L (3.5-5.1); Sodium 133.0 mmol/L (136-145)
[2025-04-05] MEDS ORDERED: REMOVE CLONIDINE PATCH SCH (08:59)
--- NOTE | 2025-04-05 10:40 | Nephrology Progress Note ---
Date of Service April 05, 2025 Assessment & Plan (1) Hypertensive emergency: Plan: * Patient admitted with hypertensive emergency * Initially managed w/ IV nicardipine. Now transitioned to oral amlodipine 10 mg qAM, hydralazine 100 mg TID and Catapress TTS-3. Losartan held due to hyperkalemia. It would be reasonable to restart losartan at discharge. * Furosemide 80 mg BID added. * Will provide HD today for continued UF. IF BP is acceptable following HD today, discharge home would be reasonable with close outpatient follow up. * TSH, random cortisol are normal. * Plasma catecholamines are pending. (2) End stage renal disease: Plan: * Orders for HD today entered into the EHR and reviewed with HD RN. Will plan treatment today. * Outpatient HD Rx: MWF 3.75 Fx CorAL80 BFR 400/QD800 2K 2Ca 1Mg Na140 HCO3 40 EDW 77.9kg * Resume outpatient Rx at discharge - TTS. * Low potassium + low sodium diet reviewed. (3) PRES (posterior reversible encephalopathy syndrome): Plan: * Attributed to accelerated hypertension. * Persistent visual scotoma R. * Neurology consultation appreciated. Admission and Anticipated Discharge Date Admission Date: April 01, 2025 Subjective No acute events overnight. Kvng was seen and evaluated with his mother at the bedside this AM. He feels reasonably well. He continues to report visual field loss in the right eye. He is feeling tired but otherwise no complaints. He tolerated HD well yesterday. No complications have been noted with dialysis treatments. Review of Systems Review of Systems: All systems reviewed & are unremarkable except as noted in HPI & below Physical Exam Constitutional: well developed; no acute distress Eyes: + anicteric sclerae ENMT: external ear and nose normal, oropharynx normal Neck: normal visual inspection RIJ TDC Respiratory: normal respiratory effort; no respiratory distress Cardiovascular: Rate/Rhythm: regular rate Heart Sounds: normal S1 and normal S2 Extremities: no edema Musculoskeletal: Extremities: no cyanosis and no clubbing Skin: no lesions and no jaundice Neurologic: Motor/Sensory: no tremor and no asterixis Psychiatric: Orientation: alert and oriented x 3 Results & Data Vital Signs (Past 12 Hours) Vital Signs Temp Pulse Pulse Resp BP Pulse Ox O2 Del Method 04/05/25 07:43 36.6 C 65 20 152/79 H 96 Room Air 04/05/25 07:05 60 07/12/25 00:12 36.9 C 70 17 148/78 H 97 Room Air Laboratory Results Laboratory Results - last 24 hr 04/04/25 04/05/25 04/05/25 15:13 05:21 08:48 WBC 4.79 L RBC 3.63 L Hgb 11.3 L Hct 33.1 L MCV 91.2 MCH 31.1 MCHC 34.1 RDW Std Deviation 47.7 H RDW Coeff of Juliana 14.5 Plt Count 108 L MPV 10.9 Sodium 133 L Potassium 5.1 Chloride 98 Carbon Dioxide 27 Anion Gap 8 BUN 38 H Creatinine 13.08 H* D Est Cr Clr Drug Dosing 9.9 eGFR 5.05 BUN/Creatinine Ratio 2.9 L Glucose 95 Calcium 8.5 L TSH 2.091 Random Cortisol 5.22 Dopamine Pending Epinephrine Pending Norepinephrine Pending Total Catecholamines Pending NHUNG Screen Pending PG Care Time/CCT Total # of Minutes Spent Total Time Spent with Patient: Total time spent is greater than 50% in coordination of care (as documented) at patient's floor/unit and/or counseling patient: Coding Level of Care Code 39714 SUB INP/OBS CARE 3/50MIN Diagnoses Hypertensive emergency I16.1 End stage renal disease N18.6 PRES (posterior reversible encephalopathy syndrome) I67.83
--- NOTE | 2025-04-05 10:50 | Hospitalist Progress Note ---
Date of Service April 05, 2025 Assessment & Plan (1) New onset seizure: Plan: Appear to be related to hypertensive emergency. Initial head CT scan unremarkable. Follow-up head CT scan due to presence of severe headache on April 01 was also negative. Neurology entry noted. Keppra has been discontinued. (2) PRES (posterior reversible encephalopathy syndrome): Plan: He developed a central scotoma OD. Brain MRI scan done on April 02 consistent with PRES. Clonidine has been uptitrated and hydralazine added for better blood pressure control. Hydralazine dosage was uptitrated again today, April 04. Neurology has stated that PRES related neurological deficits may take at least a week to resolve. Supportive care (3) Hypertensive emergency: Plan: Nicardipine drip has been switched back to his usual oral amlodipine. Clonidine has been uptitrated. Hydralazine started on April 02 and uptitrated on April 03 and April 04. Losartan discontinued due to hyperkalemia. Continue telemetry. Blood pressure much improved now with 152/79 this morning, April 05. NHUNG ordered and pending (4) End stage renal disease: Plan: Due to biopsy-proven FSGS. Nephrology consultation appreciated. He underwent hemodialysis again on April 04 Plan Anticipate eventual discharge to home within the next day or 2 Admission and Anticipated Discharge Date Admission Date: April 01, 2025 Subjective Alert and oriented. No distress. Mother is at the bedside. Blood pressure has improved considerably, 152/79 this morning. Potassium is downtrending down to 5.1 after losartan discontinued. Will continue hydralazine, Lasix, clonidine for now. NHUNG level ordered and pending and hopefully negative in the event NHUNG needs to be repeated in the future if he develops lupus-like symptoms from the hydralazine therapy. Review of Systems 2 Review of Systems: Constitutionalno fever or chills. Somewhat lethargic after seizure activity ENTcentral scotoma OD. Denies double vision. No epistaxis, no sore throat Respiratoryno cough, no wheezing, no shortness of breath Cardiacno palpitations, no chest pain, no syncope Monserrat nausea, vomiting, diarrhea, melena, hematochezia GUno urinary retention, no urinary incontinence, no dysuria, no hematuria Musculoskeletalno joint pain, no muscle tenderness Skinno bruising, no rashes, no pruritus Neurono isolated weakness, no paresthesia, no weakness. Right central scotoma persist Psychno depression, no anxiety Physical Exam 2 Physical Exam: General-alert and oriented x 3. No fever HEENT-head atraumatic and normocephalic, pupils equal and reactive to light, extraocular muscles intact Neck-no lymphadenopathy or thyromegaly, trachea midline Chest-clear to auscultation. No rales, wheezing or rhonchi. Dialysis catheter in place in the right upper anterior chest wall Cardiac-regular rate and rhythm, normal S1 and S2 Abdomen-normal bowel sounds, no hepatosplenomegaly Extremities-no cyanosis, clubbing, or edema Neuro-cranial nerves II through XII intact, motor and sensory function within normal limits, strength symmetrical. Right central scotoma persists Psych-normal affect, normal mood Results & Data Results & Data Vital Signs (Past 12 Hours) Vital Signs Temp Pulse Pulse Resp BP Pulse Ox O2 Del Method 04/05/25 07:43 36.6 C 65 20 152/79 H 96 Room Air 04/05/25 07:05 60 04/05/25 00:12 36.9 C 70 17 148/78 H 97 Room Air Laboratory Results 04/05/25 05:21 04/05/25 05:21 PG Care Time/CCT Total # of Minutes Spent Total Time Spent with Patient: Total time spent is greater than 50% in coordination of care (as documented) at patient's floor/unit and/or counseling patient: Coding Level of Care Code 46771 SUB INP/OBS CARE 2/35MIN Diagnoses New onset seizure R56.9 PRES (posterior reversible encephalopathy syndrome) I67.83 Hypertensive emergency I16.1 End stage renal disease N18.6
[2025-04-06 07:41] VITALS: BP 158/83; RESP 20; TEMP 97.7; O2SAT 96
[2025-04-06 09:25] LABS: Anion Gap 9.0 (3-11); Blood Urea Nitrogen 47.0 mg/dl (6-23); Calcium 8.5 mg/dl (8.6-10.3); Carbon Dioxide 25.0 mmol/L (21-32); Chloride 96.0 mmol/L (98-107); Creatinine Clr Calc Pharmacy 10.4 ml/min; Glucose 102.0 mg/dl (70-99(Fasting)); Potassium 5.3 mmol/L (3.5-5.1); Sodium 130.0 mmol/L (136-145)
[2025-04-06] MEDS: ACETAMINOPHEN 325 MG TAB PO PRN (09:28)
--- NOTE | 2025-04-06 10:26 | Nephrology Progress Note ---
Date of Service April 06, 2025 Assessment & Plan (1) Hypertensive emergency: Plan: * Patient admitted with hypertensive emergency * Initially managed w/ IV nicardipine. Now transitioned to oral amlodipine 10 mg qAM, hydralazine 100 mg TID and Catapress TTS-3. Losartan held due to hyperkalemia. It would be reasonable to restart losartan at discharge. * Furosemide 80 mg BID added. * TSH, random cortisol are normal. * Plasma catecholamines are pending. (2) End stage renal disease: Plan: * Next HD Monday. BP and volume status are acceptable. Electrolytes controlled. * Outpatient HD Rx: MWF 3.75 Fx CorAL80 BFR 400/QD800 2K 2Ca 1Mg Na140 HCO3 40 EDW 77.9kg * Low potassium + low sodium diet reviewed. (3) PRES (posterior reversible encephalopathy syndrome): Plan: * Attributed to accelerated hypertension. * Persistent visual scotoma R. * Neurology consultation appreciated. Admission and Anticipated Discharge Date Admission Date: April 01, 2025 Subjective No acute events overnight. Fito is resting in bed this AM. Difficulty sleeping in the hospital. Reports a headache this AM. Similar to headaches that he has had in the past. No nausea. Visual scotoma persists. Hopeful to be discharged home. Review of Systems Review of Systems: All systems reviewed & are unremarkable except as noted in HPI & below Physical Exam Constitutional: well developed; no acute distress Eyes: + anicteric sclerae ENMT: external ear and nose normal, oropharynx normal Neck: normal visual inspection RIJ TDC Respiratory: normal respiratory effort; no respiratory distress Cardiovascular: Rate/Rhythm: regular rate Heart Sounds: normal S1 and normal S2 Extremities: no edema Musculoskeletal: Extremities: no cyanosis and no clubbing Skin: no lesions and no jaundice Neurologic: Motor/Sensory: no tremor and no asterixis Psychiatric: Orientation: alert and oriented x 3 Results & Data Vital Signs (Past 12 Hours) Vital Signs Temp Pulse Resp BP Pulse Ox O2 Del Method 04/06/25 07:40 36.5 C 75 20 158/83 H 96 Room Air 04/06/25 03:26 36.6 C 69 15 159/76 H 97 Room Air 04/05/25 23:42 36.6 C 73 16 159/81 H 96 Room Air Laboratory Results Laboratory Results - last 24 hr 04/06/25 08:40 Sodium 130 L Potassium 5.3 H Chloride 96 L Carbon Dioxide 25 Anion Gap 9 BUN 47 H Creatinine 12.53 H* D Est Cr Clr Drug Dosing 10.4 eGFR 5.32 BUN/Creatinine Ratio 3.8 L Glucose 102 H Calcium 8.5 L PG Care Time/CCT Total # of Minutes Spent Total Time Spent with Patient: Total time spent is greater than 50% in coordination of care (as documented) at patient's floor/unit and/or counseling patient: Coding Level of Care Code 09522 SUB INP/OBS CARE 3/50MIN Diagnoses Hypertensive emergency I16.1 End stage renal disease N18.6 PRES (posterior reversible encephalopathy syndrome) I67.83
[2025-04-06 10:30] VITALS: PULSE 75
[2025-04-08 07:57] LABS: Anti Nuclear Antibody Screen NEGATIVE (NEGATIVE)
[2025-04-09] MEDS ORDERED: REMOVE CLONIDINE PATCH SCH (08:59)
== END 2025-04-06 11:29 | disposition home or self-care (01) | DRG 304 ==
LOC: SUATTDRO → ED 08:11 → EDINP 12:30 → 2S 13:33

== ENCOUNTER 2025-04-07 11:32 | Inpatient (IN) ==
--- NOTE | 2025-04-07 11:55 | Emergency Department Note ---
Impression & Plan Hypertension, Headache, ESRD on hemodialysis ED Provider Note NAME: JI MCCOY AGE: 20 SEX: M : 2005 ARRIVES VIA: Walk-In INFORMANT: Patient ED PROVIDER(S): Glynn Louise MD CHIEF COMPLAINT: Headache, hypertension PLAN: Disposition: Admit MEDICAL DECISION MAKING: The patient is a 20-year-old gentleman with a past medical history of end-stage renal disease on hemodialysis MWF, hypertension, recent admission to this facility from 04/01-04/06 for with seizure episode, hypertensive emergency with headache and visual scotoma with diagnosis of PRES who presents to the emergency department via walk-in accompanied by his mother for evaluation of severe headache this morning and elevated blood pressure. Patient reports he did take his medications yesterday evening after getting home from his hospital discharge and did take his medications this morning as well. Patient denies chest pain, shortness of breath, cough congestion or fevers. Of note, the patient did arrive to emergency department during time of high volume, acuity and prolonged emergency department waiting times. On evaluation the patient is uncomfortable but no acute distress, afebrile blood pressure 170/110s and vital signs otherwise stable. Appears clinically dry. He exhibits no new focal neurologic deficit at this time. EKG without overt acute ischemia. WBC 3.28K with lymphopenia, similar to recent. H/H 11.7/32.9, also similar to recent. Platelets 119K similar to recent. Chemistry demonstrates no end-stage renal disease with creatinine of 15.7 where he would be due for dialysis tomorrow, per discharge plan. LFTs are unremarkable. Tickborne illness testing performed for completeness given lymphopenia and thrombocytopenia. Labs treatment negative. Anaplasma and Peezy smear were negative. CT of the head was performed and was negative for acute abnormalities. Findings of press seen on MRI from 04/02/[address] Patient was treated with gentle hydration with 250 cc of normal saline, IV APAP and Decadron as well as IV hydralazine. Patient did have trending improvement in blood pressure and did report improvement in symptoms. However still with headache and hypertension and given recent admission for press patient and mother at the bedside agree with plan for admission at this time. Additional 5 mg of IV hydralazine ordered. Case was discussed with Dr. Wisdom, [facility] hospitalist, who will evaluate the patient for admission. Further management per admitting team. Triage Nursing notes reviewed and agree them. Prior/external medical records reviewed Vital Signs: reviewed Differential diagnosis: Migraine headache, meningitis, sinusitis, CO exposure, ICH, SAH, infection, tumor, headache, sinus thrombosis, arterial dissection, as well as other pathologies. ER treatment provided: See below. Diagnostics interpreted by me: Cardiac Monitoring: An order for continuous cardiac monitoring was placed and demonstrated normal sinus rhythm, 61 bpm, no ectopy. Laboratory studies: See below Imaging studies: See below Consultation(s): Dr. Wisdom, [facility] hospitalist HPI: Per MDM. ROS: See above HPI for pertinent positives & negatives. A total of 10 systems reviewed and were otherwise negative. VITALS:See Below PHYSICAL EXAMINATION: GENERAL: Awake, alert, uncomfortable, in no distress HENT: Normocephalic, atraumatic. Oropharynx with dry mucous membranes and otherwise unremarkable. . EYES: Normal conjunctiva. Sclera non-icteric. EOMI. No nystamgus. PEARRL. NECK: Supple. No nuchal rigidity. FROM. No JVD. RESPIRATORY: Clear to auscultation. CARDIAC: Regular rate, normal rhythm. Extremities warm and well perfused. Pulses equal. ABDOMEN: Soft, non-distended. No tenderness to palpation. No rebound or guarding. No masses. MUSCULOSKELETAL: Chest examination reveals no tenderness. Right upper chest HD catheter site c/d/i. The back is symmetrical on inspection without obvious abnormality. There is no CVA tenderness to palpation. No joint edema. LOWER EXTREMITIES: Calves are equal size bilaterally and non-tender. No edema. No discoloration. NEURO: Cranial nerves II-XII grossly intact. 5/5 strength and SILT x 4 extremities. Cerebellar function intact including [id number], alternating palms, [id number]. SKIN: No rash or jaundice noted. Glynn Louise MD Past Med/Surg History Problem List (Updated 04/08/25 @ 02:02 by Glynn Louise MD) ESRD on hemodialysis (Acute) Headache (Acute) Hypertension (Acute) Headache PRES (posterior reversible encephalopathy syndrome) End stage renal disease (Acute) Hypertensive emergency (Acute) New onset seizure (Acute) Medical History Hx of metabolic acidosis Anticoagulated on Coumadin pt states he has not been taking his Coumadin since apprx mid January 2025 Dialysis patient [facility] in [place] > //mon History of postoperative nausea and vomiting Hx of deep venous thrombosis 01/2024 > right arm > was on warfarin > now DC'ed Cardiac murmur Anemia FSGS (focal segmental glomerulosclerosis) Generalized anxiety disorder Thrombophilia End stage renal disease follows with Dr. Woods - HD 3x per week:[facility] in [place] > //mon CKD (chronic kidney disease) Hypertension recently added clonidine 0.[address] woods Surgical History S/P hemodialysis catheter insertion (12/2024) perm cath for HD- right jugular S/P left knee arthroscopy H/O hernia repair Family History Mother Diabetes Grandfather (Maternal) Hypertension Other No family history of adverse response to anesthesia Denies family history of Ovarian cancer Prostate cancer Myocardial infarction Breast cancer Lung cancer Stroke Social History Smoking Status: Never smoker Tobacco Type: Cigarettes Second Hand Exposure: No; Do You Dip or Chew Tobacco: No; Hx Alcohol Use: No Hx Substance Use: Yes Last Used Substance: Days (ago) Last Used Substance Other:: last night Substance Use Type Other:: medical card daily > advised Preferred Language: Polish Communication Ability: Effective Visual Impairment: No Limitations Hearing Ability: Normal [employer] Required: No Beliefs That Will Affect Care: None marital status: Single Current Living Situation: Parent Current Living Situation Comment: Home with family current occupational status: employed 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 How many Children do You have: 0 Feels Safe at Home: Yes Childhood Exposure to Second-Hand Smoke: No caffeine: No Dental Care, Regularly: Yes Physical Activity Frequency: 5-6 Times per Week Seatbelt Use: always Sunscreen Use: No Assistive Devices: None Allergies Allergies Allergy/AdvReac Type Severity Reaction Status Date / Time No Known Allergies Allergy Unknown Verified 04/07/25 18:44 Home Meds Home Medications Medication Instructions Recorded Confirmed Medical Marijuana 1 dose PO DIRECTED PRN Other 03/14/25 04/07/25 ketoconazole 2 % topical cream 1 applic topical DIRECTED 04/01/25 04/07/25 Previous Rx's Medication Instructions Recorded hydroxyzine HCl 25 mg tablet 25 mg PO TID PRN anxiety #90 tabs 11/13/24 amlodipine 10 mg tablet 10 mg PO QAM #90 tabs 01/29/25 calcium acetate(phosphat bind) 667 1,334 mg (2 x 667 mg) PO TIDM 90 01/29/25 mg capsule days #540 caps cholecalciferol (vitamin D3) 125 125 mcg PO QAM #90 tabs 01/29/25 mcg (5,000 unit) tablet clonidine HCl 0.3 mg tablet 0.3 mg PO DAILY #30 tabs 04/06/25 furosemide 80 mg tablet 80 mg PO BID17 #60 tabs 04/06/25 hydralazine 100 mg tablet 100 mg PO TID #90 tabs 04/06/25 Results & Data (ED) Vital Signs Vital Signs - 24 hr 04/07/25 11:39 04/07/25 12:10 04/07/25 12:10 Temperature 36.5 C Temperature Source Temporal Artery Scan Pulse Rate 76 61 Pulse Rate [Apical] 60 Pulse Rate from SpO2 Sensor Pulse Rhythm [Apical] Regular Pulse Strength [Apical] Normal Respiratory Rate 18 15 Respiratory Effort / Characteristics Non-Labored Spontaneous Non-Labored Spontaneous Respiratory Depth Normal Normal Respiratory Pattern Regular Blood Pressure 170/114 H Blood Pressure [Right Arm] 185/124 H Blood Pressure Mean 132 Blood Pressure Mean [Right Arm] 144 Blood Pressure Position [Right Arm] Lying Pulse Oximetry 100 98 Oxygen Delivery Method Room Air Room Air Sepsis Recent Fever Within 48 Hours No Sepsis New/Unexplained Change in Mental Status No Sepsis Action Taken by Nursing No Action Required 04/07/25 12:33 04/07/25 13:15 04/07/25 14:00 Temperature Temperature Source Pulse Rate 63 63 Pulse Rate [Apical] 64 Pulse Rate from SpO2 Sensor 64 63 Pulse Rhythm [Apical] Regular Pulse Strength [Apical] Normal Respiratory Rate 14 17 19 Respiratory Effort / Characteristics Non-Labored Spontaneous Respiratory Depth Normal Respiratory Pattern Regular Blood Pressure 172/107 H 158/99 H Blood Pressure [Right Arm] 150/100 H Blood Pressure Mean 128 122 Blood Pressure Mean [Right Arm] 116 Blood Pressure Position [Right Arm] Lying Pulse Oximetry 96 100 100 Oxygen Delivery Method Room Air Sepsis Recent Fever Within 48 Hours Sepsis New/Unexplained Change in Mental Status Sepsis Action Taken by Nursing Laboratory Data Attestation: I reviewed the patient's lab results. 04/07/25 11:54 04/07/25 11:54 Lab Results 04/07/25 04/07/25 Range/Units 11:54 12:35 WBC 3.28 L (4.8-10.8) K/ul RBC 3.75 L (4.70-6.10) M/uL Hgb 11.7 L (14.0-18.0) g/dl POC Hgb 10.2 L (14.0-18.0) g/dl Hct 32.9 L (42.0-52.0) % POC Hct 30 L (42-52) % MCV 87.7 (80.0-100.0) fL MCH 31.2 (25.0-34.0) pg MCHC 35.6 (32.0-36.0) g/dL RDW Std Deviation 45.5 (36.4-46.3) fL RDW Coeff of Juliana 14.2 (11.5-14.5) % Plt Count 119 L (130-400) K/uL MPV 11.2 (9.4-12.4) fL Immature Gran % (Auto) 0.3 % Neut % (Auto) 58.5 % Lymph % (Auto) 25.3 % [place] % (Auto) 10.7 % Eos % (Auto) 3.7 % Baso % (Auto) 1.5 % Neut # (Auto) 1.92 (1.40-6.50) K/uL Lymph # (Auto) 0.83 L (1.20-3.40) K/uL [place] # (Auto) 0.35 (0.11-0.59) K/uL Eos # (Auto) 0.12 (0.00-0.50) K/uL Baso # (Auto) 0.05 (0.00-0.20) K/uL Immature Gran # (Auto) 0.01 (0.01-0.20) K/uL PT 10.6 (9.0-12.0) Seconds INR 1.0 (0.9-1.1) POC Sodium 129 L (135-144) mmol/L Sodium 131 L (136-145) mmol/L POC Potassium 4.9 (3.3-5.0) mmol/L Potassium 5.2 H (3.5-5.1) mmol/L POC Chloride 97 L (101-112) mmol/L Chloride 96 L (98-107) mmol/L Carbon Dioxide 22 (21-32) mmol/L POC Total CO2 20 L (24-31) mmol/L Anion Gap 13 H (3-11) POC Anion Gap 18.0 (16-25) mmol/L POC BUN 58 H (7-18) mg/dl BUN 68 H D (6-23) mg/dl Creatinine 15.76 H* D (0.6-1.4) mg/dl POC Creatinine 17.3 mg/dl Est Cr Clr Drug Dosing 8.4 ml/min eGFR 4.04 BUN/Creatinine Ratio 4.3 L (10-20) Glucose 119 H (70-99(Fasting)) mg/dl POC Glucose (other) 101 H (70-99) mg/dl Calcium 9.1 (8.6-10.3) mg/dl POC Ioniz Calcium Lj 1.15 mmol/l Phosphorus 5.8 H (2.5-4.9) mg/dl Magnesium 2.5 H (1.7-2.4) mg/dl Total Bilirubin 0.6 (0.2-1.0) mg/dl AST 15 (13-39) U/L ALT 12 (7-52) U/L Alkaline Phosphatase 68 (34-104) U/L Total Protein 6.0 (6.0-8.3) gm/dl Albumin 3.9 (3.4-5.0) gm/dl Globulin 2.1 L (2.5-4.0) gm/dl Albumin/Globulin Ratio 1.9 (0.9-2) Anaplasma Smear See Comment Babesia Smear See Comment Lyme Disease Screen Negative (Negative) Administered Medications Acetaminophen (Acetaminophen 325 Mg Tab) 650 mg PO Q4H PRN PRN Reason: pain/fever Stop: 05/07/25 15:57 Last Admin: 04/07/25 17:17 Dose: 650 mg Documented By: LOUIS Calcium Acetate (Calcium Acetate 667 Mg Cap/Tab) 1,334 mg PO TIDM MOOSE Stop: 05/07/25 16:59 Last Admin: 04/07/25 17:18 Dose: Not Given Documented By: LOUIS Hydralazine HCl (Hydralazine Tab 50 Mg Tab) 100 mg PO TID [facility] Stop: 05/07/25 20:59 Last Admin: 04/07/25 20:29 Dose: 100 mg Documented By: JIM Hydromorphone HCl (Hydromorphone Inj 0.5 Mg/0.5 Ml Syr) 0.25 mg IV Q6H PRN PRN Reason: Pain Stop: 04/21/25 17:22 Last Admin: 04/07/25 20:27 Dose: 0.25 mg Documented By: JIM Labetalol HCl (Labetalol Hcl 200 Mg Tab) 200 mg PO BID MOOSE Stop: 05/07/25 20:59 Last Admin: 04/07/25 20:54 Dose: 200 mg Documented By: JIM Torsemide (Torsemide 20 Mg Tab) 40 mg PO BID17 [facility] Stop: 05/07/25 17:14 Last Admin: 04/07/25 17:34 Dose: 40 mg Documented By: LOUIS Discontinued Medications Dexamethasone Sodium Phosphate (DexamethasonePf 10 Mg/Ml Vial) 10 mg IV NOW ONE Stop: 04/07/25 12:09 Last Admin: 04/07/25 12:23 Dose: 10 mg Documented By: DOUGLAS Furosemide (Furosemide 80 Mg Tab) 80 mg PO BID17 [facility] Stop: 05/07/25 16:59 Last Admin: 04/07/25 17:30 Dose: Not Given Documented By: LOUIS Hydralazine HCl (Hydralazine Hcl 20 Mg/Ml Vial) 5 mg IV NOW ONE Stop: 04/07/25 12:09 Last Admin: 04/07/25 12:23 Dose: 5 mg Documented By: DOUGLAS Hydralazine HCl (Hydralazine Hcl 20 Mg/Ml Vial) 5 mg IV NOW ONE Stop: 04/07/25 14:09 Last Admin: 04/07/25 14:32 Dose: 5 mg Documented By: DOUGLAS Hydromorphone HCl (Hydromorphone Inj 0.5 Mg/0.5 Ml Syr) 0.25 mg IV NOW STA Stop: 04/07/25 17:24 Last Admin: 04/07/25 17:35 Dose: 0.25 mg Documented By: LOUIS Sodium Chloride (Nss) 250 mls @ 999 mls/hr IV .Q16M ONE Stop: 04/07/25 12:23 Last Infusion: 04/07/25 13:13 Dose: Infused Documented By: Admin: 04/07/25 12:30 Dose: 999 mls/hr Documented By: DOUGLAS Acetaminophen (Ofirmev) 1,000 mg in 100 mls @ 400 mls/hr IV NOW STA Stop: 04/07/25 12:22 Last Infusion: 04/07/25 13:12 Dose: Infused Documented By: Admin: 04/07/25 12:22 Dose: 400 mls/hr Documented By: DOUGLAS Magnesium Sulfate/Dextrose (Magnesium Sulfate / D5w) 1 gm in 100 mls @ 50 mls/hr IV Q2H MOOSE Stop: 04/07/25 21:57 Last Infusion: 04/07/25 22:12 Dose: Infused Documented By: Admin: 04/07/25 20:11 Dose: 50 mls/hr Documented By: Infusion: 04/07/25 20:11 Dose: Infused Documented By: Admin: 04/07/25 18:04 Dose: 50 mls/hr Documented By: Infusion: 04/07/25 18:04 Dose: Infused Documented By: Admin: 04/07/25 16:20 Dose: 50 mls/hr Documented By: LOUIS Valproic Acid 500 mg/ Dextrose 55 mls @ 55 mls/hr IV ONE ONE Stop: 04/07/25 17:29 Last Infusion: 04/07/25 17:46 Dose: Infused Documented By: Admin: 04/07/25 16:46 Dose: 55 mls/hr Documented By: LOUIS Imaging Data Radiologist's Impression: Head CT 04/07/25 12:10 CT SCAN OF THE BRAIN WITHOUT IV CONTRAST CLINICAL HISTORY: Headache. COMPARISON STUDY: CT of the brain dated 04/01/2025 MRI of the brain dated 04/02/2025 TECHNIQUE: Unenhanced axial CT scan of the brain is performed from the vertex to the skull base. Images are reviewed in the axial, sagittal, and coronal planes. A dose lowering technique was utilized adhering to the principles of ALARA. CT DOSE: 547.75 mGy.cm FINDINGS: Brain parenchyma: The brain parenchyma is normal in appearance. There is no hemorrhage, mass effect, or evidence of acute territorial ischemia by CT criteria. Braden-white matter differentiation is preserved. No extra-axial fluid collection is seen. Ventricles, sulci, cisterns: Normal in configuration. Intracranial vasculature: The visualized intracranial vasculature at the skull base is normal in appearance. Calvarium: Unremarkable. Sinuses and mastoids: A subcentimeter retention cyst is noted in the right maxillary sinus. The visualized paranasal sinuses are otherwise clear. The mastoid air cells are well pneumatized. Orbits: The bony orbits are grossly intact. IMPRESSION: There is no hemorrhage, mass effect, or evidence of acute territorial ischemia by CT criteria. Findings of PRES suggested by MRI on 04/02/[address] ACT 112: Negative or not required by law. Electronically signed by: Sathish Reynolds M.D. 04/07/2025 1:04 PM Discharge Plan Visit Data Chief Complaint: Headache Stated Complaint: MIGRAINE, ABD PAIN ED Provider: Glynn Louise Discharge Problem: Hypertension, Headache, ESRD on hemodialysis Patient Disposition: Admitted As Inpatient Condition: Fair Discharge Instructions Interventions: ED Discharge Assessment Last Done: 04/07/25 15:44 Discharge Problem: Hypertension Qualifiers: Hypertension type: unspecified Qualified Code(s): I10 - Essential (primary) hypertension Headache Qualifiers: Headache type: tension-type Headache chronicity pattern: acute headache I ntractability: intractable Qualified Code(s): G44.201 - Tension-type headache, unspecified, intractable
[2025-04-07] MEDS: ACETAMINOPHEN 1,000 MG/100 ML VIAL IV STA (12:22)
[2025-04-07 12:23] LABS: Hematocrit (blood only) 32.9 % (42.0-52.0); Hemoglobin 11.7 g/dl (14.0-18.0); Immature Granulocytes # (auto) 0.01 K/uL (0.01-0.20); Immature Granulocytes % (auto) 0.3 %; Mean Corpuscular Hemoglobin 31.2 pg (25.0-34.0); Mean Corpuscular Volume 87.7 fL (80.0-100.0); Platelet Count 119 K/uL (130-400); RDW Standard Deviation 45.5 fL (36.4-46.3); Red Blood Count 3.75 M/uL (4.70-6.10); White Blood Count 3.28 K/ul (4.8-10.8)
[2025-04-07] MEDS: dexAMETHasone**PF** 10 MG/ML VIAL IV ONE (12:23)
[2025-04-07] MEDS: SODIUM CHLORIDE 0.9% 250 ML IV ONE (12:30)
[2025-04-07 12:54] LABS: Alanine Aminotransferase 12.0 U/L (7-52); Albumin Globulin Ratio 1.9 (0.9-2); Alkaline Phosphatase 68.0 U/L (34-104); Anion Gap 13.0 (3-11); Bilirubin,Total 0.6 mg/dl (0.2-1.0); Blood Urea Nitrogen 68.0 mg/dl (6-23); Calcium 9.1 mg/dl (8.6-10.3); Carbon Dioxide 22.0 mmol/L (21-32); Chloride 96.0 mmol/L (98-107); Creatinine Clr Calc Pharmacy 8.4 ml/min; Globulin 2.1 gm/dl (2.5-4.0); Glucose 119.0 mg/dl (70-99(Fasting)); Magnesium 2.5 mg/dl (1.7-2.4); Potassium 5.2 mmol/L (3.5-5.1); Sodium 131.0 mmol/L (136-145); Total Protein 6.0 gm/dl (6.0-8.3)
--- NOTE | 2025-04-07 13:07 | CT Scan Report ---
CT SCAN OF THE BRAIN WITHOUT IV CONTRAST CLINICAL HISTORY: Headache. COMPARISON STUDY: CT of the brain dated 04/01/2025 MRI of the brain dated 04/02/2025 TECHNIQUE: Unenhanced axial CT scan of the brain is performed from the vertex to the skull base. Imag es are reviewed in the axial, sagittal, and coronal planes. A dose lowering technique was utilized a dhering to the principles of ALARA. CT DOSE: 547.75 mGy.cm FINDINGS: Brain parenchyma: The brain parenchyma is normal in appearance. There is no hemorrhage, mass effect, or evidence of acute territorial ischemia by CT criteria. Braden-white matter differentiation is preser vishal. No extra-axial fluid collection is seen. Ventricles, sulci, cisterns: Normal in configuration. Intracranial vasculature: The visualized intracranial vasculature at the skull base is normal in appe arance. Calvarium: Unremarkable. Sinuses and mastoids: A subcentimeter retention cyst is noted in the right maxillary sinus. The visua lized paranasal sinuses are otherwise clear. The mastoid air cells are well pneumatized. Orbits: The bony orbits are grossly intact. IMPRESSION: There is no hemorrhage, mass effect, or evidence of acute territorial ischemia by CT karlost jc. Findings of PRES suggested by MRI on 04/02/[address] ACT 112: Negative or not required by law. Electronically signed by: Sathish Reynolds M.D. 04/07/2025 1:04 PM
--- NOTE | 2025-04-07 14:58 | History & Physical Report ---
Date of Service April 07, 2025 Assessment & Plan (1) Headache: (2) FSGS (focal segmental glomerulosclerosis): (3) Hypertension: Plan #headachegiven his lack of new visual symptoms, lack of neurologic findings, lack of seizure activity, etc.I suspect that his headache is causing the spike in his blood pressure, rather than the blood pressure causing another hypertensive crisis. That said, he did just have MD ES syndrome last week, so we will definitely need to follow him closely. Treating the headacheI suspect his tooth is precipitating a migraine and tension headache. I have reached out to maxillofacial for assistance on how to best manage the tooth pain. As far as the suboccipital tension headachesuboccipital OMT done as above, IV magnesium ordered, ice pack. As far as migraine, IV magnesium and Depakote. Will follow his blood pressure, I suspect that treating the headache will help improve it, I have ordered his home medications as well as additional clonidine as needed. #ESRDon dialysis. Does not appear to have any acute or urgent indications for dialysis. He is due tomorrow. Nephrology has been consulted. #Hypertensionsee abovesuspect that the headache is precipitating high blood pressure at this point rather than the other way around. Follow closely. Continue his home medications, additional clonidine as needed. #Mild leukopenia and thrombocytopeniano fevers chills sweats or other signs or symptoms of tickborne illness. Continue to follow. History of Present Illness Chief Complaint: Headache Primary Care Provider: Harsh Marshall DO patient is a very pleasant 20-year-old male who presents with headache. He was just in the hospital after yesterday with MD ES syndrome. Whenever he went home he did not feel great, but did not have a headache and felt like he was well enough to be home. This morning he woke up with a whole constellation of symptomswhat got his attention the most was a headache that seems to be predominantly frontal with some photophobia and nausea, but also he noticed a lot of pain in his left posterior molar. He does not have any new or worse v isual changesthe visual blank spot in his right eye from last week is still there, but he actually notes it is getting brighter and has definitely not worsened. He is acting like his normal self. He has no new visual findings. No fevers chills or sweats. Generally feels rundown. Due for dialysis tomorrow. Allergies Allergy/AdvReac Type Severity Reaction Status Date / Time No Known Allergies Allergy Unknown Verified 04/01/25 10:51 Home Medications Medication Instructions Recorded Confirmed Type hydroxyzine HCl 25 mg tablet 25 mg PO TID PRN anxiety #90 tabs 11/13/24 04/01/25 Rx amlodipine 10 mg tablet 10 mg PO QAM #90 tabs 01/29/25 04/01/25 Rx calcium acetate(phosphat bind) 667 1,334 mg (2 x 667 mg) PO TIDM 90 01/29/25 04/01/25 Rx mg capsule days #540 caps cholecalciferol (vitamin D3) 125 125 mcg PO QAM #90 tabs 01/29/25 04/01/25 Rx mcg (5,000 unit) tablet Medical Marijuana 1 dose PO DIRECTED PRN Other 03/14/25 04/01/25 History ketoconazole 2 % topical cream 1 applic topical DIRECTED 04/01/25 04/01/25 History clonidine HCl 0.3 mg tablet 0.3 mg PO DAILY #30 tabs 04/06/25 Rx furosemide 80 mg tablet 80 mg PO BID17 #60 tabs 04/06/25 Rx hydralazine 100 mg tablet 100 mg PO TID #90 tabs 04/06/25 Rx Past Med/Surg History Problem List (Updated 04/07/25 @ 15:36 by Ja Wisdom DO) Headache PRES (posterior reversible encephalopathy syndrome) End stage renal disease (Acute) Hypertensive emergency (Acute) New onset seizure (Acute) Medical History Hx of metabolic acidosis Anticoagulated on Coumadin pt states he has not been taking his Coumadin since apprx mid January 2025 Dialysis patient [facility] in [place] > tues/thurs/sat History of postoperative nausea and vomiting Hx of deep venous thrombosis 01/2024 > right arm > was on warfarin > now DC'ed Cardiac murmur Anemia FSGS (focal segmental glomerulosclerosis) Generalized anxiety disorder Thrombophilia End stage renal disease follows with Dr. Woods - HD 3x per week:[facility] in [place] > tues/thurs/sat CKD (chronic kidney disease) Hypertension recently added clonidine 0.[address] woods Surgical History S/P hemodialysis catheter insertion (12/2024) perm cath for HD- right jugular S/P left knee arthroscopy H/O hernia repair Family History Mother Diabetes Grandfather (Maternal) Hypertension Other No family history of adverse response to anesthesia Denies family history of Ovarian cancer Prostate cancer Myocardial infarction Breast cancer Lung cancer Stroke Social History Smoking Status: Never smoker Tobacco Type: Cigarettes Second Hand Exposure: No; Do You Dip or Chew Tobacco: No; Hx Alcohol Use: No Hx Substance Use: Yes Last Used Substance: Unknown Substance Use Type Other:: medical card daily > advised Preferred Language: Lithuanian Communication Ability: Effective Visual Impairment: No Limitations Hearing Ability: Normal Air Traffic Control Operator Required: No Beliefs That Will Affect Care: None marital status: Single Current Living Situation: Family Current Living Situation Comment: lives at home with parents current occupational status: employed 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 HEENT normocephalic atraumatic mucous membranes moist. Left posterior molar does not appear to be visibly cracked or infected, is quite tender to touch, and does seem to be somewhat underneath the gum tissue. Left greater than right suboccipital muscles high tone, tender, decreased range of motioninhibitory pressurepatient tolerated well. Of note patient's blood pressure did spike right after inhibitory pressure was performed. Cardio is regular without rubs murmurs or gallops. Lungs clear without rales rhonchi or wheezes. Skin without rashes pallor or icterus. Neuro shows cranial nerves II through XII be grossly intact gross motor and sensory are intact. Mental status shows good recent and remote recall normal mood and affect good judgment and insight. Labs and diagnostics noted. Results & Data Results & Data Vital Signs (Past 12 Hours) Vital Signs Temp Pulse Pulse Resp BP BP Pulse Ox 04/07/25 14:00 64 19 150/100 H 100 04/07/25 13:15 63 17 158/99 H 100 04/07/25 12:33 63 14 172/107 H 96 04/07/25 12:10 60 15 185/124 H 98 04/07/25 12:10 61 04/07/25 11:39 97.7 F 76 18 170/114 H 100 O2 Del Method 04/07/25 14:00 Room Air 04/07/25 13:15 04/07/25 12:33 04/07/25 12:10 Room Air 04/07/25 12:10 04/07/25 11:39 Room Air PG Care Time/CCT Total # of Minutes Spent Total Time Spent with Patient: Total time spent is greater than 50% in coordination of care (as documented) at patient's floor/unit and/or counseling patient: Coding Level of Care Code 15497 INT INP/OBS CARE 3/75MIN Diagnoses Headache R51.9 FSGS (focal segmental glomerulosclerosis) N05.1 Hypertension I10
[2025-04-07 15:11] LABS: INR 1.0 (0.9-1.1); Prothrombin Time 10.6 Seconds (9.0-12.0)
[2025-04-07] MEDS ORDERED: ONDANSETRON INJ 2 MG/ML 2 ML VIAL IV PRN (15:58)
[2025-04-07] MEDS ORDERED: MELATONIN 3 MG TAB PO PRN (15:58)
[2025-04-07] MEDS ORDERED: MEDICAL MARIJUANA PO PRN (16:03)
[2025-04-07] MEDS: MAGNESIUM SULFATE / D5W 1 GM/100 ML BAG IV SCH (16:20)
--- NOTE | 2025-04-07 16:40 | Nephrology Consultation ---
Date of Consultation April 07, 2025 Assessment & Plan (1) End stage renal disease: (2) Hypertensive emergency: (3) Headache: (4) PRES (posterior reversible encephalopathy syndrome): Plan 20-year-old male with end-stage kidney disease and hypertensive urgency, secondary to primary FSGS requiring renal, recently started on dialysis. Presented to the hospital with headache after getting discharged yesterday for admission for hypertensive emergency. He had [id number] dialysis during last admission and tolerated UF about 3 L or more each day. Blood pressure has been running high. -- Considering hypertensive urgency while on 5 different antihypertensive medication at maximum dose, will get a renal artery Doppler. -- Discontinue Lasix and start on torsemide 40 mg twice a day considering longer duration of action -- Start on labetalol 200 mg twice a day -- Continue on amlodipine, hydralazine, clonidine -- will consider doxazosin if blood pressure remains poorly controlled, considering repeated hyperkalemia in the setting of end-stage kidney disease, will avoid ACEI/ARB, spironolactone. -- If blood pressure remains elevated, will consider adding doxazosin --OK to use NSAID prn for headache -- Will plan for dialysis tomorrow as regular schedule and continue to try to challenge EDW Thank you for allowing me to participate in your patient's care. It was a pleasure to see Fito. History of Present Illness Reason for Consultation: ESRD, hypertensive urgency. Attending Physician: Ja Wisdom DO History of Present Illness Mr. Kvng Ramos is a 20 year-old male with past medical history significant for end-stage kidney disease, hypertension, history of recent hypertensive em ergency and seizure, admitted to the hospital with poorly controlled hypertension, headache and need for dialysis. Nephrology consult is requested for management of above. EMR records were reviewed in detail during patient's visit. Fito presented to ER today with headache and elevated blood pressure after getting discharged yesterday. He was admitted from 04/02/25 to 04/06/25 with hypertensive emergency and new onset seizure. Systolic blood pressure initially was above 230s and blood pressure eventually improved after [id number] dialysis and significant UF for few days. MRI was negative for acute stroke but was consistent with PRES. During last admission random cortisol, TSH was unremarkable. Workup for pheochromocytoma was ordered during last admission, result currently pending although prior CT abdomen pelvis showed otherwise normal adrenal gland. Renal artery Doppler done August 2023 was unremarkable with no hemodynamically significant renal artery stenosis. Prior renal ultrasound showed echogenic kidneys. He was discharged yesterday. Last dialysis was Monday. He presented this morning with headache and noted to have elevated blood pressure. Systolic blood pressure has been staying around 160s to 170s, diastolic 90s to 100. He has been on 4 antihypertensive medications including amlodipine 10 mg daily, hydralazine 100 mg 3 times daily, Lasix 80 mg twice a day, clonidine 0.3 mg daily. He was also started on as needed clonidine and hydralazine. Started having nephrotic range proteinuria since age 7, he reports overall feeling poorly. About 20 g/day. 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 A follow up biopsy obtained in September 2023 was consistent with advanced kidney disease ( glomeruli globally scle rosed; ~70% IFTA) and primary FSGS. He missed many follow-up visit and eventually over last 1 year kidney function progressively declined and he was started on dialysis in January 2025 via tunneled dialysis catheter. He has been getting dialysis at [facility] [place] Monday, , Monday. Continues to have headache without much improvement. Reports appetite has been poor for quite some time. Also feels like it is sometimes hard for him to take deep breath. He is still making urine. Allergies Allergy/AdvReac Type Severity Reaction Status Date / Time No Known Allergies Allergy Unknown Verified 04/01/25 10:51 Home Medications Medication Instructions Recorded Confirmed Type hydroxyzine HCl 25 mg tablet 25 mg PO TID PRN anxiety #90 tabs 11/13/24 04/01/25 Rx amlodipine 10 mg tablet 10 mg PO QAM #90 tabs 01/29/25 04/01/25 Rx calcium acetate(phosphat bind) 667 1,334 mg (2 x 667 mg) PO TIDM 90 01/29/25 04/01/25 Rx mg capsule days #540 caps cholecalciferol (vitamin D3) 125 125 mcg PO QAM #90 tabs 01/29/25 04/01/25 Rx mcg (5,000 unit) tablet Medical Marijuana 1 dose PO DIRECTED PRN Other 03/14/25 04/01/25 History ketoconazole 2 % topical cream 1 applic topical DIRECTED 04/01/25 04/01/25 History clonidine HCl 0.3 mg tablet 0.3 mg PO DAILY #30 tabs 04/06/25 Rx furosemide 80 mg tablet 80 mg PO BID17 #60 tabs 04/06/25 Rx hydralazine 100 mg tablet 100 mg PO TID #90 tabs 04/06/25 Rx Patient History Medical History Hx of metabolic acidosis Anticoagulated on Coumadin pt states he has not been taking his Coumadin since apprx mid January 2025 Dialysis patient [facility] in [place] > tues/thurs/sat History of postoperative nausea and vomiting Hx of deep venous thrombosis 01/2024 > right arm > was on warfarin > now DC'ed Cardiac murmur Anemia FSGS (focal segmental glomerulosclerosis) Generalized anxiety disorder Thrombophilia End stage renal disease follows with Dr. Woods - HD 3x per week:[facility] in [place] > tues/thurs/sat CKD (chronic kidney disease) Hypertension recently added clonidine 0.[address] woods Surgical History S/P hemodialysis catheter insertion (12/2024) perm cath for HD- right jugular S/P left knee arthroscopy H/O hernia repair Family History Mother Diabetes Grandfather (Maternal) Hypertension Other No family history of adverse response to anesthesia Denies family history of Ovarian cancer Prostate cancer Myocardial infarction Breast cancer Lung cancer Stroke Social History Smoking Status: Never smoker Tobacco Type: Cigarettes Second Hand Exposure: No; Do You Dip or Chew Tobacco: No; Hx Alcohol Use: No Hx Substance Use: No Preferred Language: Setswana Communication Ability: Effective Visual Impairment: No Limitations Hearing Ability: Normal Medical Registrar Required: No Beliefs That Will Affect Care: None marital status: Single Current Living Situation: Parent Current Living Situation Comment: Home with family current occupational status: employed 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 How many Children do You have: 0 Feels Safe at Home: Yes Childhood Exposure to Second-Hand Smoke: No caffeine: No Dental Care, Regularly: Yes Physical Activity Frequency: 5-6 Times per Week Seatbelt Use: always Sunscreen Use: No Assistive Devices: None Review of Systems Review of Systems: All systems reviewed & are unremarkable except as noted in HPI & below Physical Exam Constitutional: WD/WN, vitals as above + ill appearing Eyes: + anicteric sclerae Respiratory: no respiratory distress Auscultation: lungs clear to auscultation bilaterally Cardiovascular: Rate/Rhythm: regular rate and regular rhythm Heart Sounds: normal S1 and normal S2 Extremities: + vascular access device (Rt IJ TDC); no edema Gastrointestinal (Abdomen): Inspection/Auscultation: abdomen normal to inspection Percussion/Palpation: + abdomen tender (mild diffuse tenderness) and abdomen soft Musculoskeletal: Extremities: extremities normal to inspection Skin: no rashes, warm and dry Neurologic: no focal motor deficits Psychiatric: Orientation: alert and oriented x 3 Affect: euthymic affect Results & Data Vital Signs (Past 12 Hours) Vital Signs Temp Pulse Pulse Pulse Resp BP BP 04/07/25 15:59 36.4 C L 64 18 160/95 H 04/07/25 15:43 75 20 04/07/25 14:00 64 19 04/07/25 13:15 63 17 158/99 H 04/07/25 12:33 63 14 172/107 H 04/07/25 12:10 60 15 04/07/25 12:10 61 04/07/25 11:39 36.5 C 76 18 170/114 H BP Pulse Ox O2 Del Method 04/07/25 15:59 99 Room Air 04/07/25 15:43 167/104 H 98 Room Air 04/07/25 14:00 150/100 H 100 Room Air 04/07/25 13:15 100 04/07/25 12:33 96 04/07/25 12:10 185/124 H 98 Room Air 04/07/25 12:10 04/07/25 11:39 100 Room Air PG Care Time/CCT Total # of Minutes Spent Total Time Spent with Patient: Total time spent is greater than 50% in coordination of care (as documented) at patient's floor/unit and/or counseling patient: Coding Level of Care Code 33578 INT INP/OBS CARE 3/75MIN Diagnoses End stage renal disease N18.6 Hypertensive emergency I16.1 Headache R51.9 PRES (posterior reversible encephalopathy syndrome) I67.83
[2025-04-07] MEDS: VALPROATE SOD 500 MG in DEXTROSE 5% 50 ML IV ONE (16:46)
[2025-04-07] MEDS: ACETAMINOPHEN 325 MG TAB PO PRN (17:17)
[2025-04-07] MEDS: CALCIUM ACETATE 667 MG CAP/TAB PO SCH (17:18)
[2025-04-07] MEDS: FUROSEMIDE 80 MG TAB PO SCH (17:30)
[2025-04-07] MEDS: TORSEMIDE 20 MG TAB PO SCH (17:34)
[2025-04-07] MEDS: HYDROmorphone INJ 0.5 MG/0.5 ML SYR IV STA (17:35)
--- NOTE | 2025-04-07 17:59 | Discharge Summary ---
Discharge Summary Date of Service April 07, 2025 Principal Dx & Hospital Course #1 = Principal Diagnosis Admission HPI Per Admitting Provider patient is a very pleasant 20-year-old male who presents with headache. He was just in the hospital after yesterday with AL ES syndrome. Whenever he went home he did not feel great, but did not have a headache and felt like he was well enough to be home. This morning he woke up with a whole constellation of symptomswhat got his attention the most was a headache that seems to be predominantly frontal with some photophobia and nausea, but also he noticed a lot of pain in his left posterior molar. He does not have any new or worse visual changesthe visual blank spot in his right eye from last week is still there, but he actually notes it is getting brighter and has definitely not worsened. He is acting like his normal self. He has no new visual findings. No fevers chills or sweats. Generally feels rundown. Due for dialysis tomorrow. Discharge Plan Discharge Items Reason For Visit: INTRACTABLE HEADACHE Follow-up/Referrals: Harsh Marshall DO [Primary Care Provider] - Medications and DC Order Prescriptions: No Action hydroxyzine HCl 25 mg tablet 25 mg PO TID PRN (Reason: anxiety) Qty: 90 1RF calcium acetate(phosphat bind) 667 mg capsule 1,334 mg PO TIDM 90 Days Qty: 540 3RF amlodipine 10 mg tablet 10 mg PO QAM Qty: 90 2RF cholecalciferol (vitamin D3) 125 mcg (5,000 unit) tablet 125 mcg PO QAM Qty: 90 1RF ketoconazole 2 % cream 1 applic topical DIRECTED Rx Instructions: Apply as directed at Cath site furosemide 80 mg Tablet 80 mg PO BID17 Qty: 60 0RF clonidine HCl 0.3 mg tablet 0.3 mg PO DAILY Qty: 30 0RF hydralazine 100 mg tablet 100 mg PO TID Qty: 90 0RF Medical Marijuana 1 dose PO DIRECTED PRN (Reason: Other) Admission Data Admit Date/Time: 04/07/25 14:57 Attending Provider: Ja Wisdom Admit Provider: Ja Wisdom Primary Care Provider: Harsh Marshall Other Providers: Ja Wisdom; Andriy Woods; Juan Waters Hospital Stay Data Consultations 04/07/25 14:09 ED Decision to Admit Stat 04/07/25 15:58 Consult Nephrology Routine Diagnostic Imagining Performed 04/07/25 12:10 CT head/brain wo con Stat Coding
[2025-04-07] MEDS: HYDROmorphone INJ 0.5 MG/0.5 ML SYR IV PRN (20:27)
[2025-04-07] MEDS: LABETALOL HCL 200 MG TAB PO SCH (20:54)
--- NOTE | 2025-04-07 22:28 | Oral/Maxillofacial Consult ---
Date of Consultation April 07, 2025 Assessment & Plan (1) ESRD on hemodialysis: (2) Headache: (3) Hypertension: (4) Headache: (5) Impacted teeth with abnormal position: (6) Carious teeth: History of Present Illness Attending Physician: Ja Wisdom, DO History of Present Illness I was asked to consult on Kvng to determine if his dental issues could be a cause of his head pain (headache). I looked over all of his CT scan and could not find any facial CT scans. 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 There is no doubt that these teeth will need to be address either by a dental exam or by extraction of the non restorable teeth. 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 I will plan to see Kvng in in the late morning or before 1 pm. If for some reason he will be discharged at least we will have the CT scan I arrangements can be made for follow up as an outpatient in my office. I saw Kvng at 12:30 on April 08 in room 316. I also reviewed the CT scan Kvng has no dental pain, swelling,infection, hot/cold sensitivity or bitting pressure. He has not been to a dentist in a while. The CT scan shows a few dental carious lesions and impacted wisdom teeth. Given that he may be a candidate for a Kidney transplant getting his teeth in optimal health is very important. I strongly suggested upon discharge he must find a general dentist for a comprehensive dental exam with X Rays. A cleaning and treatment session is necessary. Hopefully many of the carious teeth can be restored, the fractured and impacted teeth will need removal. I see no dental issue that need immediate attention The most important thing to do now is get involved with a dentist to develop a comprehensive dental plan. Kvng is receptive with the plan and will be discussing sherry ash his mother and make arrangments. Plan Obtain Maxillofacial CT scan in morning Dr Waters to evaluate CT scan as soon as completed Dr Waters will see Kvng before 1 pm April 08, 2025 unless he is discharged If discharged then please make arrangments for follow up with Dr Waters in his office Exam(s): CT FACIAL Without Contrast EXAM: CT Maxillofacial Without Intravenous Contrast CLINICAL HISTORY: headache/multiple carious teeth as cause of pain. FINDINGS: Bones/joints: No acute fracture. Prominent caries in the posterior left greater than right mandibular molars. Soft tissues: Unremarkable. Orbits: Unremarkable. Sinuses: Small bilateral maxillary sinus mucous retention cysts. No air-fluid levels. IMPRESSION: Caries in the left greater than right mandibular molars. Allergies Allergy/AdvReac Type Severity Reaction Status Date / Time No Known Allergies Allergy Unknown Verified 04/07/25 18:44 Home Medications Medication Instructions Recorded Confirmed Type hydroxyzine HCl 25 mg tablet 25 mg PO TID PRN anxiety #90 tabs 11/13/24 04/07/25 Rx amlodipine 10 mg tablet 10 mg PO QAM #90 tabs 01/29/25 04/07/25 Rx calcium acetate(phosphat bind) 667 1,334 mg (2 x 667 mg) PO TIDM 90 01/29/25 04/07/25 Rx mg capsule days #540 caps cholecalciferol (vitamin D3) 125 125 mcg PO QAM #90 tabs 01/29/25 04/07/25 Rx mcg (5,000 unit) tablet Medical Marijuana 1 dose PO DIRECTED PRN Other 03/14/25 04/07/25 History ketoconazole 2 % topical cream 1 applic topical DIRECTED 04/01/25 04/07/25 History clonidine HCl 0.3 mg tablet 0.3 mg PO DAILY #30 tabs 04/06/25 04/07/25 Rx hydralazine 100 mg tablet 100 mg PO TID #90 tabs 04/06/25 04/07/25 Rx labetalol 200 mg tablet 200 mg PO BID #60 tabs 04/08/25 Rx torsemide 20 mg tablet 40 mg (2 x 20 mg) PO BID17 #60 tabs 04/08/25 Rx Patient History Medical History Hx of metabolic acidosis Anticoagulated on Coumadin pt states he has not been taking his Coumadin since apprx mid January 2025 Dialysis patient [facility] in [place] > tues/thurs/sat History of postoperative nausea and vomiting Hx of deep venous thrombosis 01/2024 > right arm > was on warfarin > now DC'ed Cardiac murmur Anemia FSGS (focal segmental glomerulosclerosis) Generalized anxiety disorder Thrombophilia End stage renal disease follows with Dr. Woods - HD 3x per week:[facility] in [place] > tues/thurs/sat CKD (chronic kidney disease) Hypertension recently added clonidine 0.[address] woods Surgical History S/P hemodialysis catheter insertion (12/2024) perm cath for HD- right jugular S/P left knee arthroscopy H/O hernia repair Family History Mother Diabetes Grandfather (Maternal) Hypertension Other No family history of adverse response to anesthesia Denies family history of Ovarian cancer Prostate cancer Myocardial infarction Breast cancer Lung cancer Stroke Social History Smoking Status: Never smoker Tobacco Type: Cigarettes Second Hand Exposure: No; Do You Dip or Chew Tobacco: No; Hx Alcohol Use: No Hx Substance Use: Yes Last Used Substance: Days (ago) Last Used Substance Other:: last night Substance Use Type Other:: medical card daily > advised Preferred Language: Sinhala Communication Ability: Effective Visual Impairment: No Limitations Hearing Ability: Normal Atg Java Developer Required: No Beliefs That Will Affect Care: None marital status: Single Current Living Situation: Parent Current Living Situation Comment: Home with family current occupational status: employed 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 How many Children do You have: 0 Feels Safe at Home: Yes Childhood Exposure to Second-Hand Smoke: No caffeine: No Dental Care, Regularly: Yes Physical Activity Frequency: 5-6 Times per Week Seatbelt Use: always Sunscreen Use: No Assistive Devices: None Results & Data Vital Signs (Past 12 Hours) Vital Signs Temp Pulse Pulse Pulse Resp BP BP 04/07/25 20:24 36.6 C 66 16 166/82 H 04/07/25 17:38 04/07/25 15:59 36.4 C L 64 18 160/95 H 04/07/25 15:43 75 20 04/07/25 14:00 64 19 04/07/25 13:15 63 17 158/99 H 04/07/25 12:33 63 14 172/107 H 04/07/25 12:10 60 15 04/07/25 12:10 61 04/07/25 11:39 36.5 C 76 18 170/114 H BP Pulse Ox O2 Del Method 04/07/25 20:24 97 Room Air 04/07/25 17:38 147/77 H 04/07/25 15:59 99 Room Air 04/07/25 15:43 167/104 H 98 Room Air 04/07/25 14:00 150/100 H 100 Room Air 04/07/25 13:15 100 04/07/25 12:33 96 04/07/25 12:10 185/124 H 98 Room Air 04/07/25 12:10 04/07/25 11:39 100 Room Air PG Care Time/CCT Total # of Minutes Spent Total Time Spent with Patient: Total time spent is greater than 50% in coordination of care (as documented) at patient's floor/unit and/or counseling patient: Coding Level of Care Code 73894 IN/OBS CONSULT LVL 3,45M Diagnoses ESRD on hemodialysis N18.6; Z99.2 Headache G44.201 Headache chronicity pattern: acute headache Headache type: tension-type Intractability: intractable Hypertension I10 Hypertension type: unspecified Impacted teeth with abnormal position K01.1 Carious teeth K02.9 (2) Headache Headache chronicity pattern: acute headache Headache type: tension-type Intractability: intractable Qualified Code(s): G44.201 - Tension-type headache, unspecified, intractable (3) Hypertension Hypertension type: unspecified Qualified Code(s): I10 - Essential (primary) hypertension
--- NOTE | 2025-04-08 00:32 | CT Scan Report ---
Exam(s): CT FACIAL Without Contrast EXAM: CT Maxillofacial Without Intravenous Contrast CLINICAL HISTORY: headacks/multiple carious teeth as cause of pain. TECHNIQUE: Axial computed tomography images of the face without intravenous contrast. CTDI is 36.26 mGy and DLP is 960.01 mGy-cm. Automated exposure control was utilized for the study. A dose lowering technique was utilized adhering to the principles of ALARA. COMPARISON: No relevant prior studies available. FINDINGS: Bones/joints: No acute fracture. Prominent caries in the posterior left greater than right mandibular molars. Soft tissues: Unremarkable. Orbits: Unremarkable. Sinuses: Small bilateral maxillary sinus mucous retention cysts. No air-fluid levels. IMPRESSION: Caries in the left greater than right mandibular molars. Electronically signed by: Jason Valentine M.D. 04/08/25 00:30 AM
[2025-04-08] MEDS: CALCIUM CARBONATE 500 MG CHEWABLE TAB PO PRN (05:07)
[2025-04-08] MEDS: POLYETHYLENE (MIRALAX) 17 GM PACK PO PRN (06:16)
[2025-04-08] MEDS: MAGNESIUM HYDROXIDE SUSP 30 ML UDC PO PRN (06:16)
--- NOTE | 2025-04-08 07:52 | Ultrasound Report ---
EXAM: US duplex renal art/vein BI CLINICAL HISTORY: hypertensive urgency. TECHNIQUE: Bilateral renal arterial duplex was performed. COMPARISON: 09/27/2024, 09/04/2023. FINDINGS: Kidneys: Right Kidney: The right kidney measures 10.4 cm. No cysts, hydronephrosis, calculi, or masses were identified. Renal parenchymal echogenicity increased with loss of cortical differentiation. (stable) Cortical thickness: Within normal. Renal pelvis within normal. There is minimal perinephric fluid surrounding the lower pole Left Kidney: The left kidney measures 11.1 cm. No hydronephrosis, calculi, or masses were identified. Renal parenchymal echogenicity is increased. (stable) Cortical thickness: Within normal. Renal pelvis within normal. There is minimal perinephric fluid surrounding the lower pole. There are multiple renal cysts the largest in the upper pole measuring 1.4x1.4x1.5 cm with minimal fine septations. ( mild increase in size ) Aorta: Mid aorta diameter is within normal limits. Mid aorta peak systolic velocity (PSV) is 160 cm/sec, within normal limits. No atherosclerotic changes throughout the visualized abdominal aorta. Renal Arteries: Parameter Right Renal Artery (RRA) Left Renal Artery (LRA) Proximal PSV/EDV (cm/sec) 126.5/30.4 63/19 Mid PSV/EDV (cm/sec) 97.7/33.6 104/60 Distal PSV/EDV (cm/sec) 79.2/13.5 56.3/15 Resistive Index (RI) RI: Upper pole: 0.6 Mid pole: 0.5 Lower pole: 0.61 RI: Upper pole: 0.62 Mid pole: 0.62 Lower pole: 0.58 Renal Artery/Aorta Ratio (RAR) 1.2 0.6 Reference data: 60% stenosis, RAR 3.1: 1, renal artery PSV 180 cm/s splenomegaly; the spleen measures 18.4 cm ( stable) The renal artery/aorta ratio is within normal limits bilaterally. There is no detectable renal artery stenosis bilaterally. IMPRESSION: 1. Both kidneys are normal in size with increased cortical echogenicity and loss of cortical differentiation more on the left side, indicating chronic parenchyma kidney disease.(stable) 2. Left renal multiple simple cysts.( mild increase in size) 3. Bilateral minimal perinephric fluid collection. 4. Incidental findings of splenomegaly, (stable) Further ultrasound and lab evaluation are advised if clinically warranted. Electronically signed by Chai Bonner 04-08-2025 07:52 AM
[2025-04-08] MEDS: CHOLECALCIFEROL 125 MCG (5,000 UNITS) TAB PO SCH (08:09)
[2025-04-08 08:35] LABS: Hematocrit (blood only) 30.1 % (42.0-52.0); Hemoglobin 10.4 g/dl (14.0-18.0); Immature Granulocytes # (auto) 0.01 K/uL (0.01-0.20); Immature Granulocytes % (auto) 0.2 %; Mean Corpuscular Hemoglobin 30.8 pg (25.0-34.0); Mean Corpuscular Volume 89.1 fL (80.0-100.0); Platelet Count 122 K/uL (130-400); RDW Standard Deviation 46.6 fL (36.4-46.3); Red Blood Count 3.38 M/uL (4.70-6.10); White Blood Count 5.19 K/ul (4.8-10.8)
[2025-04-08 08:55] LABS: Anion Gap 15.0 (3-11); Blood Urea Nitrogen 83.0 mg/dl (6-23); Calcium 8.9 mg/dl (8.6-10.3); Carbon Dioxide 20.0 mmol/L (21-32); Chloride 94.0 mmol/L (98-107); Creatinine Clr Calc Pharmacy 7.7 ml/min; Glucose 147.0 mg/dl (70-99(Fasting)); Potassium 5.0 mmol/L (3.5-5.1); Sodium 129.0 mmol/L (136-145)
--- NOTE | 2025-04-08 09:10 | Hospitalist Progress Note ---
Date of Service April 08, 2025 Assessment & Plan (1) End stage renal disease: (2) Hypertensive emergency: (3) Headache: (4) PRES (posterior reversible encephalopathy syndrome): Plan Nephrology consult note 20-year-old male with end-stage kidney disease and hypertensive urgency, secondary to primary FSGS requiring renal, recently started on dialysis. Presented to the hospital with headache after getting discharged yesterday for admission for hypertensive emergency. He had dtgb-[id number] dialysis during last admission and tolerated UF about 3 L or more each day. Blood pressure has been running high. -- Considering hypertensive urgency while on 5 different antihypertensive medication at maximum dose, will get a renal artery Doppler. -- Discontinue Lasix and start on torsemide 40 mg twice a day considering longer duration of action -- Start on labetalol 200 mg twice a day -- Continue on amlodipine, hydralazine, clonidine -- will consider doxazosin if blood pressure remains poorly controlled, considering repeated hyperkalemia in the setting of end-stage kidney disease, will avoid ACEI/ARB, spironolactone. -- If blood pressure remains elevated, will consider adding doxazosin --OK to use NSAID prn for headache -- Patient was in dialysis today Thank you for allowing me to participate in your patient's care. It was a pleasure to see Fito. #Headache/Vision Loss - Will continue to monitor. Headache has resolved for now. - Neurology consult? Admission and Anticipated Discharge Date Admission Date: April 07, 2025 Subjective Patient presented into the ED for headache pain. Patient reports that he was admitted to the hospital last Monday for seizures and was discharged this past Monday. However, he was starting to feel worse and came back into the ER yesterday. Patient states that his headache has gotten better and hasnt had one since noon yesterday. Patient has not had a BM yet though was given miralax and was told he may have one before noon. Patient reports that he slept well for about 4 hours but that he has dialysis today so maybe he didnt sleep well because of that. Patient did say that the tooth pain isnt exactly new. He would have flare-ups in the past and would last for about a day then go away. However this tooth pain is lasting longer than normal. Patient said that he mainly has to eat on the right side of his mouth. When he eats on the left side of his mouth he has some pain. Thankfully the pain is getting better. Patient denies chest pain, N/V, shortness of breath. However, patient did say that when he covers his right eye he can only see the right light next to the TV and the clock beside it. When he covers the left eye he cant see anything straight in front of him. Was told the last time he was here it would go away, yet it didnt seem to have gone away. Review of Systems Review of Systems: per subjective HPI Physical Exam Constitutional: WD/WN, vitals as above Respiratory: normal respiratory effort, lungs clear to auscultation Cardiovascular: Rate/Rhythm: regular rate and regular rhythm Heart Sounds: + murmur (systolic) Neurologic: CN 3,4,5,6,7,8,11,12 grossly intact. When he covers his right eye he can only see the right light next to the TV and the clock beside it. When he covers the left eye he cant see anything straight in front of him. Results & Data Results & Data Vital Signs (Past 12 Hours) Vital Signs Temp Pulse Resp BP Pulse Ox O2 Del Method 04/08/25 07:04 36.6 C 85 18 161/88 H 95 Room Air
--- NOTE | 2025-04-08 10:20 | Nephrology Progress Note ---
Date of Service April 08, 2025 Assessment & Plan (1) End stage renal disease: (2) Hypertensive emergency: (3) Headache: (4) PRES (posterior reversible encephalopathy syndrome): Plan 20-year-old male with end-stage kidney disease and hypertensive urgency, secondary to primary FSGS requiring renal, recently started on dialysis. Presented to the hospital with headache after getting discharged yesterday for admission for hypertensive emergency. He had [id number] dialysis during last admission and tolerated UF about 3 L or more each day. Blood pressure still elevated but there is some trending improvement. Renal artery Doppler was negative for hemodynamically mediated renal artery stenosis. --Dialysis today as regular schedule, aim for UF 3 L or more as tolerated. --Continue on torsemide 40 mg twice a day --labetalol 200 mg twice a day, increase dose as needed -- Continue on amlodipine, hydralazine, clonidine -- will consider doxazosin if blood pressure remains poorly controlled, considering repeated hyperkalemia in the setting of end-stage kidney disease, will avoid ACEI/ARB, spironolactone. Admission and Anticipated Discharge Date Admission Date: April 07, 2025 Dimas Payton was seen and evaluated this morning. He reports feeling much better, headache almost resolved. Blood pressure slightly improved although still above goal. Review of Systems Review of Systems: Detailed review of system was done and pertinent positives and negatives are mentioned above. Physical Exam Constitutional: WD/WN, vitals as above Eyes: + anicteric sclerae Respiratory: no respiratory distress Auscultation: lungs clear to auscultation bilaterally Cardiovascular: Rate/Rhythm: regular rate and regular rhythm Heart Sounds: normal S1 and normal S2 Extremities: + vascular access device (Rt IJ TDC); no edema Musculoskeletal: Extremities: extremities normal to inspection Skin: no rashes, warm and dry Neurologic: no focal motor deficits Psychiatric: Orientation: alert and oriented x 3 Affect: euthymic affect Results & Data Vital Signs (Past 12 Hours) Vital Signs Temp Pulse Resp BP BP Pulse Ox O2 Del Method 04/08/25 10:05 88 167/77 H 95 Room Air 04/08/25 07:04 36.6 C 85 18 161/88 H 95 Room Air PG Care Time/CCT Total # of Minutes Spent Total Time Spent with Patient: Total time spent is greater than 50% in coordination of care (as documented) at patient's floor/unit and/or counseling patient: Coding Level of Care Code 71081 SUB INP/OBS CARE MIN Diagnoses End stage renal disease N18.6 Hypertensive emergency I16.1 Headache R51.9 PRES (posterior reversible encephalopathy syndrome) I67.83
[2025-04-08] MEDS: ALUMINUM/MAGNESIUM SUSP 30 ML UDC PO PRN (11:04)
[2025-04-08 14:23] VITALS: RESP 15; O2SAT 97
--- NOTE | 2025-04-08 17:47 | Discharge Summary ---
Date of Service April 08, 2025 Admission HPI Per Admitting Provider patient is a very pleasant 20-year-old male who presents with headache. He was just in the hospital after yesterday with VT ES syndrome. Whenever he went home he did not feel great, but did not have a headache and felt like he was well enough to be home. This morning he woke up with a whole constellation of symptomswhat got his attention the most was a headache that seems to be predominantly frontal with some photophobia and nausea, but also he noticed a lot of pain in his left posterior molar. He does not have any new or worse visual changesthe visual blank spot in his right eye from last week is still th ere, but he actually notes it is getting brighter and has definitely not worsened. He is acting like his normal self. He has no new visual findings. No fevers chills or sweats. Generally feels rundown. Due for dialysis tomorrow. Admission Exam Per Admitting Provider General he is awake and alert pleasant fatigued. HEENT normocephalic atraumatic mucous membranes moist. Left posterior molar does not appear to be visibly cracked or infected, is quite tender to touch, and does seem to be somewhat underneath the gum tissue. Left greater than right suboccipital muscles high tone, tender, decreased range of motioninhibitory pressurepatient tolerated well. Of note patient's blood pressure did spike right after inhibitory pressure was performed. Cardio is regular without rubs murmurs or gallops. Lungs clear without rales rhonchi or wheezes. Skin without rashes pallor or icterus. Neuro shows cranial nerves II through XII be grossly intact gross motor and sensory are intact. Mental status shows good recent and remote recall normal mood and affect good judgment and insight. Labs and diagnostics noted. Principal Diagnosis Headache Discharge Exam Constitutional WD/WN, vitals as above Respiratory normal respiratory effort, lungs clear to auscultation Cardiovascular Rate/Rhythm: regular rate and regular rhythm Heart Sounds: + murmur (systolic) Neurologic CN 3,4,5,6,7,8,11,12 grossly intact. When he covers his right eye he can only see the right light next to the TV and the clock beside it. When he covers the left eye he cant see anything straight in front of him. Psychiatric Eye Contact: good eye contact Thought Process: linear/logical thought process Discharge Data Allergies Allergy/AdvReac Type Severity Reaction Status Date / Time No Known Allergies Allergy Unknown Verified 04/07/25 18:44 Consultations 04/07/25 14:09 ED Decision to Admit Stat 04/07/25 15:58 Consult Nephrology Routine 04/07/25 17:23 Consult Oromaxillofacial Surgery Routine Ordered Studies 04/07/25 12:10 CT head/brain wo con Stat 04/07/25 22:29 CT facial bones wo con Urgent 04/08/25 US duplex renal art/vein BI Routine Hospital Course (1) End stage renal disease: (2) Hypertensive emergency: (3) Headache: (4) PRES (posterior reversible encephalopathy syndrome): Plan Nephrology consult note 20-year-old male with end-stage kidney disease and hypertensive urgency, secondary to primary FSGS requiring renal, recently started on dialysis. Presented to the hospital with headache after getting discharged yesterday for admission for hypertensive emergency. He had [id number]-[id number] dialysis during last admission and tolerated UF about 3 L or more each day. Blood pressure has been running high. -- Considering hypertensive urgency while on 5 different antihypertensive medication at maximum dose, will get a renal artery Doppler. -- Discontinue Lasix and start on torsemide 40 mg twice a day considering longer duration of action -- Start on labetalol 200 mg twice a day -- Continue on amlodipine, hydralazine, clonidine -- will consider doxazosin if blood pressure remains poorly controlled, considering repeated hyperkalemia in the setting of end-stage kidney disease, will avoid ACEI/ARB, spironolactone. -- If blood pressure remains elevated, will consider adding doxazosin --OK to use NSAID prn for headache -- Patient was in dialysis today Thank you for allowing me to participate in your patient's care. It was a pleasure to see Fito. #Headache/Vision Loss - Will continue to monitor. Headache has resolved for now. - Ordered maxillofacial surgery consult: Maxillofacial Surgery Consult Note History of Present Illness I was asked to consult on Kvng to determine if his dental issues could be a cause of his head pain (headache). I looked over all of his CT scan and could not find any facial CT scans. 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 There is no doubt that these teeth will need to be address either by a dental exam or by extraction of the non restorable teeth. I will order I maxillofacial CT scan for environmental services project manager on MondayApril 08 and then review the scan. I will plan to see Kvng in in the late morning or before 1 pm. If for some reason he will be discharged at least we will have the CT scan I arrangements can be made for follow up as an outpatient in my office. Plan Obtain Maxillofacial CT scan in morning Dr Waters to evaluate CT scan as soon as completed Dr Waters will see Kvng before 1 pm April 08, 2025 unless he is discharged If discharged then please make arrangments for follow up with Dr Waters in his office Total Time Total Time Spent Total Time Spent (In Minutes): <30 Discharge Plan Discharge Items Patient Disposition: Home - Self-Care Reason For Visit: INTRACTABLE HEADACHE Discharge Diagnosis: headache (see below) Condition on Discharge: Fair Activity: Resume your previous activity Non-emergency contact: Primary Care Provider and Adult Live In Caregiver Call non-emergency contact if: you have any medication questions and your symptoms worsen Follow-up/Referrals: Harsh Marshall DO [Primary Care Provider] - Diet: Dialysis Renal Addtl Attending Provider Instructions: Headache: As we discussed, this headache seems to have been a migraine and the pain from the headache was probably causing the spike in the blood pressure, rather than the other way around (with the high blood pressure causing the headache itself). Typically what we see when high blood pressure is causing the headache is more what happened with you last weekthings like visual changes/mental status changes/seizures. Fortunately none of this was at play this time. I suspect it was predominantly a migraine headache with a significant contribution of a tension headache (the tender spots at the back your neck that I was pressing on yesterday). My biggest concern is given that your left lower molar is bad and causes you pain, I worry if that might be "the spark that lights the fire" as far as what is causing the headaches. It might not be, but I would definitely recommend getting it taken care of as quickly as possible, simply to reduce the chance of having this happen over and over again. as far as managing the blood pressure itself, for now Dr Guevara added labetalol 200mg twice a day and changed your furosemide to torsemide - still twice a day dosing, but instead of taking furosemide 80mg twice a day, stop it and take the torsemide 40mg twice a day instead Pending Studies at Discharge: No Stand-Alone Forms: My [facility], Smoking Cessation Medications and DC Order Prescriptions: New labetalol 200 mg Tablet 200 mg PO BID Qty: 60 0RF torsemide 20 mg Tablet 40 mg PO BID17 Qty: 60 0RF Continued hydroxyzine HCl 25 mg tablet 25 mg PO TID PRN (Reason: anxiety) Qty: 90 1RF calcium acetate(phosphat bind) 667 mg capsule 1,334 mg PO TIDM 90 Days Qty: 540 3RF amlodipine 10 mg tablet 10 mg PO QAM Qty: 90 2RF cholecalciferol (vitamin D3) 125 mcg (5,000 unit) tablet 125 mcg PO QAM Qty: 90 1RF ketoconazole 2 % cream 1 applic topical DIRECTED Rx Instructions: Apply as directed at Cath site clonidine HCl 0.3 mg tablet 0.3 mg PO DAILY Qty: 30 0RF hydralazine 100 mg tablet 100 mg PO TID Qty: 90 0RF Medical Marijuana 1 dose PO DIRECTED PRN (Reason: Other) Discontinued furosemide 80 mg Tablet 80 mg PO BID17 Qty: 60 0RF Discharge Orders: Discharge Order (Routine); Ordered 04/08/25 Ordered By: Ja Wisdom Admission Data Admit Date/Time: 04/07/25 14:57 Attending Provider: Ja Wisdom Admit Provider: Ja Wisdom Primary Care Provider: Harsh Marshall Other Providers: Ja Wisdom; Andriy Woods; Juan Waters Supervising Physician Co-Signing Physician Notes I personally examined the patient and verified all pastrana points of history and exam, discussed case, and agree with decision making with Dr Reyes feeling better and would like to go home. no new or worse visual changes, headache good tooth feeling better. Vitals noted, in general he is awake and alert pleasant no distress. HEENT normocephalic atraumatic mucous membranes moist. Breathing unlabored no accessory muscle use good effort. Skin without rashes pallor or icterus. Neuro without focal deficits. Headache/elevated blood pressurewhile he had symptomatic hypertension last week including seizures and visual changes as well as PRES findings on MRI, yesterday's headache really seem to be more of a migraine and the pain from the headache itself was precipitating the spike in blood pressure. He appears safe/stable for home. Headache improved with Tylenol, OMT to suboccipital muscles, IV magnesium, IV Depakote. I do worry about his lower molar precipitating the headaches, he was seen by maxillofacial in this regard, and he will follow-up in short order with a dentist as an outpatient. Hypertensionwhile I do not believe the high blood pressure was precipitating the headaches this admission, he did have VT ES syndrome just a week ago, and his blood pressures were still suboptimally controlled. Nephrology added labetalol, and changed his furosemide to torsemidethese will be continued at discharge. PRESongoing blood pressure control and time. Safe/stable for home, otherwise as above Resident Activity Tracking Resident Involvement: Resident Care Provided Care Provided: Adult Hospital Medicine
--- NOTE | 2025-04-08 17:52 | Billing Data ---
Date of Service April 08, 2025 Coding Level of Care Code 77260 IN/OBS DISCH 30 MIN/LESS
[2025-04-08 19:08] VITALS: BP 186/103; PULSE 77; TEMP 97.9
== END 2025-04-08 20:00 | disposition home or self-care (01) | DRG 102 ==
LOC: ED 11:32 → 3E 14:57

== ENCOUNTER 2025-04-09 21:18 | Observation (INO) ==
[2025-04-09 22:02] LABS: Hematocrit (blood only) 30.3 % (42.0-52.0); Hemoglobin 10.4 g/dl (14.0-18.0); Immature Granulocytes # (auto) 0.02 K/uL (0.01-0.20); Immature Granulocytes % (auto) 0.4 %; Mean Corpuscular Hemoglobin 30.9 pg (25.0-34.0); Mean Corpuscular Volume 89.9 fL (80.0-100.0); Platelet Count 144 K/uL (130-400); RDW Standard Deviation 46.5 fL (36.4-46.3); Red Blood Count 3.37 M/uL (4.70-6.10); White Blood Count 5.32 K/ul (4.8-10.8)
[2025-04-09] MEDS: CALCIUM GLUCONATE 1,000 MG/60 ML BAG IV STA (22:03)
[2025-04-09] MEDS: METOCLOPRAMIDE HCL INJ 5 MG/ML 2 ML VIAL IV ONE (22:04)
[2025-04-09] MEDS: diphenhydrAMINE 50 MG/ML VIAL IV STA (22:04)
[2025-04-09 22:26] LABS: Alanine Aminotransferase 11 U/L (7-52); Alkaline Phosphatase 68 U/L (34-104); Anion Gap 11 (3-11); Bilirubin,Total 0.6 mg/dl (0.2-1.0); Blood Urea Nitrogen 55 mg/dl (6-23); Calcium 9.4 mg/dl (8.6-10.3); Carbon Dioxide 26 mmol/L (21-32); Chloride 94 mmol/L (98-107); Glucose 106 mg/dl (70-99(Fasting)); Lipase 17 U/L (11-82); Potassium 5.3 mmol/L (3.5-5.1); Sodium 131 mmol/L (136-145); Total Protein 6.3 gm/dl (6.0-8.3)
[2025-04-09] MEDS: OPTIRAY 320 100ml IV ONE (22:52)
--- NOTE | 2025-04-09 23:26 | CT Scan Report ---
Exam(s): CT HEAD Without Contrast EXAM: CT Head Without Intravenous Contrast CLINICAL HISTORY: Reason for exam: treviño. TECHNIQUE: Axial computed tomography images of the head/brain without intravenous contrast. CTDI is 38.24 mGy and DLP is 624.41 mGy-cm. Automated exposure control was utilized for the study. A dose lowering technique was utilized adhering to the principles of ALARA. COMPARISON: 04/07/25 FINDINGS: Brain: No hemorrhage. No apparent acute cortical infarct. No mass lesion or midline shift. Ventricles: No hydrocephalus. Bones/joints: No acute fracture. Soft tissues: Unremarkable. Sinuses: No acute sinusitis. Mastoid air cells: No mastoid effusion. Orbits: No acute process. IMPRESSION: No acute intracranial process. Electronically signed by: Sandip Garcia M.D. 04/09/25 23:26 PM
--- NOTE | 2025-04-09 23:30 | CT Scan Report ---
Exam(s): CT ABDOMEN + PELVIS With Contrast IV Amt: 93 ml optiray 320 EXAM: CT Abdomen and Pelvis With Intravenous Contrast CLINICAL HISTORY: Reason for exam: nv. TECHNIQUE: Axial computed tomography images of the abdomen and pelvis with intravenous contrast. CTDI is 35.43 mGy and DLP is 1195.08 mGy-cm. Automated exposure control was utilized for the study. A dose lowering technique was utilized adhering to the principles of ALARA. CONTRAST: Patient received 93 ml optiray 320 of IV contrast COMPARISON: 09/03/23. FINDINGS: Pleural space: Trace bilateral pleural fluid. Heart: Cardiomegaly. ABDOMEN: Liver: Hepatosplenomegaly. Gallbladder and bile ducts: No radiodense stones. No biliary ductal dilation. Pancreas: Unremarkable. Spleen: See above. Adrenals: Unremarkable. Kidneys and ureters: Small low-attenuation foci in the kidneys, typically present small cysts. No stones or obstructive changes. Stomach and bowel: No marleen mural thickening. Nonobstructive bowel gas pattern. PELVIS: Appendix: No findings to suggest acute appendicitis. Bladder: Unremarkable. Reproductive: Unremarkable. ABDOMEN and PELVIS: Intraperitoneal space: Small amounts of fluid in the peritoneal cavity. Bones/joints: No acute fracture. Soft tissues: Unremarkable. Vasculature: No acute process. IMPRESSION: 1. Hepatosplenomegaly. 2. Nonobstructive bowel gas pattern. Electronically signed by: Sandip Garcia M.D. 04/09/25 23:29 PM
--- NOTE | 2025-04-09 23:56 | XRay Report ---
Exam(s): XR CXR 1 VIEW EXAM: XR Chest, 1 View CLINICAL HISTORY: Reason for exam: nv. TECHNIQUE: Frontal view of the chest. COMPARISON: No relevant prior studies available. FINDINGS: Lungs: Vascular congestion and mild interstitial edema. Pleural space: No pleural effusion. No pneumothorax. Heart: Mild cardiomegaly. Mediastinum: Unremarkable. Bones/joints: No acute fracture. Tubes, lines and devices: Vascular catheter in the SVC. Upper abdomen: Unremarkable as visualized. IMPRESSION: Vascular congestion and mild interstitial edema. Electronically signed by: Sandip Garcia M.D. 04/09/25 23:55 PM
--- NOTE | 2025-04-10 00:35 | Emergency Department Note ---
History of Present Illness General Chief complaint: Vomiting Stated complaint: LIGHTHEADED, NAUSEA, VOMITING Time Seen by Provider: 04/09/25 21:45 History of Present Illness Provider complaint: Illness Maximum Pain Intensity: 9 20-year-old male end-stage renal disease presents to the emergency department for illness. Patient reports that he was discharged from the hospital yesterday and since getting home he has been having headaches nausea vomiting diarrhea. No fever. No hematemesis coffee-ground emesis bilious vomiting melena or hematochezia. Patient reports abdominal pain. Home Medications Medication Instructions Recorded Confirmed Type hydroxyzine HCl 25 mg tablet 25 mg PO TID PRN anxiety #90 tabs 11/13/24 04/09/25 Rx amlodipine 10 mg tablet 10 mg PO QAM #90 tabs 01/29/25 04/09/25 Rx calcium acetate(phosphat bind) 667 1,334 mg (2 x 667 mg) PO TIDM 90 01/29/25 04/09/25 Rx mg capsule days #540 caps cholecalciferol (vitamin D3) 125 125 mcg PO QAM #90 tabs 01/29/25 04/09/25 Rx mcg (5,000 unit) tablet Medical Marijuana 1 dose PO DIRECTED PRN Other 03/14/25 04/09/25 History ketoconazole 2 % topical cream 1 applic topical DIRECTED 04/01/25 04/09/25 History clonidine HCl 0.3 mg tablet 0.3 mg PO DAILY #30 tabs 04/06/25 04/09/25 Rx hydralazine 100 mg tablet 100 mg PO TID #90 tabs 04/06/25 04/09/25 Rx labetalol 200 mg tablet 200 mg PO BID #60 tabs 04/08/25 04/09/25 Rx torsemide 20 mg tablet 40 mg (2 x 20 mg) PO BID17 #60 tabs 04/08/25 04/09/25 Rx Allergies Allergy/AdvReac Type Severity Reaction Status Date / Time No Known Allergies Allergy Unknown Verified 04/07/25 18:44 Past Med/Surg History Problem List (Updated 04/10/25 @ 00:34 by Rodolfo Encarnacion MD) Nausea & vomiting (Acute) Carious teeth Impacted teeth with abnormal position ESRD on hemodialysis (Acute) Headache (Acute) Hypertension (Acute) Headache PRES (posterior reversible encephalopathy syndrome) End stage renal disease (Acute) Hypertensive emergency (Acute) New onset seizure (Acute) Medical History Hx of metabolic acidosis Anticoagulated on Coumadin pt states he has not been taking his Coumadin since apprx mid January 2025 Dialysis patient [facility] in [place] > tues/thurs/sat History of postoperative nausea and vomiting Hx of deep venous thrombosis 01/2024 > right arm > was on warfarin > now DC'ed Cardiac murmur Anemia FSGS (focal segmental glomerulosclerosis) Generalized anxiety disorder Thrombophilia End stage renal disease follows with Dr. Woods - HD 3x per week:[facility] in [place] > tues/thurs/sat CKD (chronic kidney disease) Hypertension recently added clonidine 0.[address] woods Surgical History S/P hemodialysis catheter insertion (12/2024) perm cath for HD- right jugular S/P left knee arthroscopy H/O hernia repair Family History Mother Diabetes Grandfather (Maternal) Hypertension Other No family history of adverse response to anesthesia Denies family history of Ovarian cancer Prostate cancer Myocardial infarction Breast cancer Lung cancer Stroke Social History Smoking Status: Never smoker Tobacco Type: Cigarettes Second Hand Exposure: No; Do You Dip or Chew Tobacco: No; Hx Alcohol Use: No Hx Substance Use: Yes Last Used Substance: Days (ago) Last Used Substance Other:: last night Substance Use Type Other:: medical card daily > advised Preferred Language: Syriac Communication Ability: Effective Visual Impairment: No Limitations Hearing Ability: Normal 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: No Beliefs That Will Affect Care: None marital status: Single Current Living Situation: Parent Current Living Situation Comment: Home with family current occupational status: employed 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 How many Children do You have: 0 Feels Safe at Home: Yes Childhood Exposure to Second-Hand Smoke: No caffeine: No Dental Care, Regularly: Yes Physical Activity Frequency: 5-6 Times per Week Seatbelt Use: always Sunscreen Use: No Assistive Devices: None Physical Exam Vital Signs Vital Signs - 24 hr 04/09/25 21:21 04/09/25 21:32 04/09/25 21:32 Temperature 36.9 C Temperature Source Temporal Artery Scan Pulse Rate 83 Pulse Rate from SpO2 Sensor Respiratory Rate 16 Respiratory Depth Normal Blood Pressure 174/108 H 178/107 H 178/107 H Blood Pressure Mean 130 127 127 Pulse Oximetry 99 Oxygen Delivery Method Room Air Sepsis Recent Fever Within 48 Hours No Sepsis New/Unexplained Change in Mental Status No Sepsis Action Taken by Nursing No Action Required 04/09/25 21:36 04/09/25 21:39 04/09/25 21:50 Temperature Temperature Source Pulse Rate 81 82 72 Pulse Rate from SpO2 Sensor 81 83 Respiratory Rate 27 H 36 H 20 Respiratory Depth Blood Pressure Blood Pressure Mean Pulse Oximetry 98 98 98 Oxygen Delivery Method Room Air Sepsis Recent Fever Within 48 Hours Sepsis New/Unexplained Change in Mental Status Sepsis Action Taken by Nursing 04/09/25 22:00 04/09/25 22:00 04/09/25 22:12 Temperature Temperature Source Pulse Rate 91 H Pulse Rate from SpO2 Sensor 91 H Respiratory Rate 12 Respiratory Depth Blood Pressure 174/103 H 174/103 H Blood Pressure Mean 122 122 Pulse Oximetry 95 Oxygen Delivery Method Sepsis Recent Fever Within 48 Hours Sepsis New/Unexplained Change in Mental Status Sepsis Action Taken by Nursing 04/09/25 22:13 04/09/25 22:30 04/09/25 23:00 Temperature Temperature Source Pulse Rate 95 H 89 Pulse Rate from SpO2 Sensor Respiratory Rate 18 Respiratory Depth Blood Pressure 178/103 H 208/117 H Blood Pressure Mean 135 153 Pulse Oximetry 97 Oxygen Delivery Method Sepsis Recent Fever Within 48 Hours Sepsis New/Unexplained Change in Mental Status Sepsis Action Taken by Nursing 04/09/25 23:30 04/09/25 23:30 04/09/25 23:42 Temperature Temperature Source Pulse Rate 92 H 85 Pulse Rate from SpO2 Sensor 84 Respiratory Rate 16 13 Respiratory Depth Blood Pressure 190/109 H 190/109 H Blood Pressure Mean 126 126 Pulse Oximetry 97 96 Oxygen Delivery Method Sepsis Recent Fever Within 48 Hours Sepsis New/Unexplained Change in Mental Status Sepsis Action Taken by Nursing Physical Exam GENERAL: He is oriented to person, place, and time. He appears well-developed and well-nourished. He does not appear distressed. HENT: Exam performed. - Head: Normocephalic and atraumatic. - Right Ear: External ear normal. No mastoid erythema - Left Ear: External ear normal. No mastoid erythema - Mouth/Throat: The oropharynx is clear and moist. No trismus in the jaw. No dental abscesses or uvula swelling. No oropharyngeal exudate or tonsillar abscesses. EYES: Conjunctivae and EOM are normal. Pupils are equal, round, and reactive to light. Right eye exhibits no discharge. Left eye exhibits no discharge. No scleral icterus. NECK: Normal range of motion. Neck supple. No JVD present.No rigidity. No tracheal deviation and normal range of motion present. CV: Normal rate, regular rhythm, normal heart sounds and intact distal pulses. There is no peripheral edema. Palpable radial pulses bue. PULM/CHEST: Effort normal and breath sounds normal. No respiratory distress. No stridor. He has no wheezes. He has no rales. - Chest Wall: Permacath present. ABD: The abdomen is soft. No mass is present. There is no tenderness. There is no rebound, no guarding MUSC/SKEL: Normal range of motion. There is no peripheral edema, tenderness or deformity. LYMPH: No cervical adenopathy. NEURO: He is alert and oriented to person, place, and time. He has normal strength. No cranial nerve deficit or sensory deficit. Coordination and gait normal. GCS eye subscore is 4. GCS verbal subscore is 5. GCS motor subscore is 6. Cerebellar tests wnl. SKIN: Skin is warm and dry. He is not diaphoretic. PSYCH: He has a normal mood and affect. Behavior is normal. Judgment and thought content normal. Course Course 2144: The patient was evaluated in room B7. A complete history and physical exam was performed Cardiac monitoring: An order was placed for continuous cardiac monitoring. The monitor shows a rate of 80 with sinus rhythm interpreted by me 2200: Patient's EKG shows some peaked T waves. Patient be treated with calcium gluconate 1 g. 2330: Labs show white blood cell count 5.32 hemoglobin 10.4 sodium 131 potassium 5.3 imaging is unremarkable. Patient still having a lot of nausea. Patient will be evaluated for admission by the hospitalist team giving the patient was discharged from the hospital yesterday. Administered Medications Discontinued Medications Diphenhydramine HCl (Diphenhydramine 50 Mg/Ml Vial) 25 mg IV NOW STA Stop: 04/09/25 21:51 Last Admin: 04/09/25 22:04 Dose: 25 mg Documented By: OC Calcium Gluconate () 1,000 mg in 60 mls @ 240 mls/hr IV NOW STA Stop: 04/09/25 22:09 Last Infusion: 04/09/25 22:25 Dose: Infused Documented By: Admin: 04/09/25 22:03 Dose: 240 mls/hr Documented By: OC Ioversol (Optiray 320 100ml) 100 ml IV ONCE ONE Stop: 04/09/25 22:52 Last Admin: 04/09/25 22:52 Dose: 93 ml Documented By: SYLWIA Metoclopramide HCl (Metoclopramide Hcl Inj 5 Mg/Ml 2 Ml Vial) 5 mg IV ONE ONE Stop: 04/09/25 21:51 Last Admin: 04/09/25 22:04 Dose: 5 mg Documented By: OC Medical Decision Making Medical Records Attestation: I reviewed the patient's medical records. Medical records reviewed. Patient had a an MRI of the brain done on April 02, 2025. Patient was admitted from April 01, 2025 until April 06, 2025. Patient was subsequently readmitted on April 07, 2025 until yesterday April 08, 2025. Patient had his blood pressure medications adjusted discontinuing Lasix and started on torsemide 40 mg twice daily and being placed on labetalol 200 mg twice daily. Patient was continued on amlodipine hydralazine and clonidine. Laboratory Data Attestation: I reviewed the patient's lab results. 04/09/25 21:33 04/09/25 21:33 Lab Results 04/09/25 Range/Units 21:33 WBC 5.32 (4.8-10.8) K/ul RBC 3.37 L (4.70-6.10) M/uL Hgb 10.4 L (14.0-18.0) g/dl Hct 30.3 L (42.0-52.0) % MCV 89.9 (80.0-100.0) fL MCH 30.9 (25.0-34.0) pg MCHC 34.3 (32.0-36.0) g/dL RDW Std Deviation 46.5 H (36.4-46.3) fL RDW Coeff of Juliana 14.4 (11.5-14.5) % Plt Count 144 (130-400) K/uL MPV 11.2 (9.4-12.4) fL Immature Gran % (Auto) 0.4 % Neut % (Auto) 65.9 % Lymph % (Auto) 23.5 % Dickson % (Auto) 7.0 % Eos % (Auto) 2.1 % Baso % (Auto) 1.1 % Neut # (Auto) 3.51 (1.40-6.50) K/uL Lymph # (Auto) 1.25 (1.20-3.40) K/uL Dickson # (Auto) 0.37 (0.11-0.59) K/uL Eos # (Auto) 0.11 (0.00-0.50) K/uL Baso # (Auto) 0.06 (0.00-0.20) K/uL Immature Gran # (Auto) 0.02 (0.01-0.20) K/uL Sodium 131 L (136-145) mmol/L Potassium 5.3 H (3.5-5.1) mmol/L Chloride 94 L (98-107) mmol/L Carbon Dioxide 26 (21-32) mmol/L Anion Gap 11 (3-11) BUN 55 H D (6-23) mg/dl Creatinine 13.11 H* D (0.6-1.4) mg/dl Est Cr Clr Drug Dosing Not Reportable eGFR 5.04 BUN/Creatinine Ratio 4.2 L (10-20) Glucose 106 H (70-99(Fasting)) mg/dl Calcium 9.4 (8.6-10.3) mg/dl Total Bilirubin 0.6 (0.2-1.0) mg/dl Direct Bilirubin 0.1 (0-0.2) mg/dl AST 14 (13-39) U/L ALT 11 (7-52) U/L Alkaline Phosphatase 68 (34-104) U/L Total Protein 6.3 (6.0-8.3) gm/dl Albumin 3.8 (3.4-5.0) gm/dl Lipase 17 (11-82) U/L Imaging Data Radiologist's Impression: Abdomen/Pelvis CT 04/09/25 21:50 Exam(s): CT ABDOMEN + PELVIS With Contrast IV Amt: 93 ml optiray 320 EXAM: CT Abdomen and Pelvis With Intravenous Contrast CLINICAL HISTORY: Reason for exam: nv. TECHNIQUE: Axial computed tomography images of the abdomen and pelvis with intravenous contrast. CTDI is 35.43 mGy and DLP is 1195.08 mGy-cm. Automated exposure control was utilized for the study. A dose lowering technique was utilized adhering to the principles of ALARA. CONTRAST: Patient received 93 ml optiray 320 of IV contrast COMPARISON: 09/03/23. FINDINGS: Pleural space: Trace bilateral pleural fluid. Heart: Cardiomegaly. ABDOMEN: Liver: Hepatosplenomegaly. Gallbladder and bile ducts: No radiodense stones. No biliary ductal dilation. Pancreas: Unremarkable. Spleen: See above. Adrenals: Unremarkable. Kidneys and ureters: Small low-attenuation foci in the kidneys, typically present small cysts. No stones or obstructive changes. Stomach and bowel: No marleen mural thickening. Nonobstructive bowel gas pattern. PELVIS: Appendix: No findings to suggest acute appendicitis. Bladder: Unremarkable. Reproductive: Unremarkable. ABDOMEN and PELVIS: Intraperitoneal space: Small amounts of fluid in the peritoneal cavity. Bones/joints: No acute fracture. Soft tissues: Unremarkable. Vasculature: No acute process. IMPRESSION: 1. Hepatosplenomegaly. 2. Nonobstructive bowel gas pattern. Electronically signed by: Sandip Garcia M.D. 04/09/25 23:29 PM Chest X-Ray 04/09/25 21:50 Exam(s): XR CXR 1 VIEW EXAM: XR Chest, 1 View CLINICAL HISTORY: Reason for exam: nv. TECHNIQUE: Frontal view of the chest. COMPARISON: No relevant prior studies available. FINDINGS: Lungs: Vascular congestion and mild interstitial edema. Pleural space: No pleural effusion. No pneumothorax. Heart: Mild cardiomegaly. Mediastinum: Unremarkable. Bones/joints: No acute fracture. Tubes, lines and devices: Vascular catheter in the SVC. Upper abdomen: Unremarkable as visualized. IMPRESSION: Vascular congestion and mild interstitial edema. Electronically signed by: Sandip Garcia M.D. 04/09/25 23:[address] 04/09/25 21:50 Exam(s): CT HEAD Without Contrast EXAM: CT Head Without Intravenous Contrast CLINICAL HISTORY: Reason for exam: treviño. TECHNIQUE: Axial computed tomography images of the head/brain without intravenous contrast. CTDI is 38.24 mGy and DLP is 624.41 mGy-cm. Automated exposure control was utilized for the study. A dose lowering technique was utilized adhering to the principles of ALARA. COMPARISON: 04/07/25 FINDINGS: Brain: No hemorrhage. No apparent acute cortical infarct. No mass lesion or midline shift. Ventricles: No hydrocephalus. Bones/joints: No acute fracture. Soft tissues: Unremarkable. Sinuses: No acute sinusitis. Mastoid air cells: No mastoid effusion. Orbits: No acute process. IMPRESSION: No acute intracranial process. Electronically signed by: Sandip Garcia M.D. 04/09/25 23:26 PM ECG Data Attestation: I personally reviewed and interpreted this ECG as follows: Additional Comments: EKG #1 at 2137: Sinus rhythm with a rate of 82. W[place] QRS and QTc intervals within normal limits. No ST elevation or ST depression. Peaked T waves in leads II, V3, V4, V5. EKG #2 at 2155: Sinus rhythm with rate of 77. [place] QRS and QTc intervals are within normal limits. No ST elevation or ST depression. Mild peaked T waves in leads II, V3, V4, V5. [facility] Narrative 2144: The patient was evaluated in room B7. A complete history and physical exam was performed Cardiac monitoring: An order was placed for continuous cardiac monitoring. The monitor shows a rate of 80 with sinus rhythm interpreted by me 0: Patient's EKG shows some peaked T waves. Patient be treated with calcium gluconate 1 g. 2330: Labs show white blood cell count 5.32 hemoglobin 10.4 sodium 131 potassium 5.3 imaging is unremarkable. Patient still having a lot of nausea. Patient will be evaluated for admission by the hospitalist team giving the patient was discharged from the hospital yesterday. Impression & Plan End stage renal disease, Headache, Nausea & vomiting Discharge Plan Visit Data Chief Complaint: Vomiting Stated Complaint: LIGHTHEADED, NAUSEA, VOMITING ED Provider: Rodolfo Encarnacion Discharge Problem: End stage renal disease, Headache, Nausea & vomiting Patient Disposition: Being Evaluated by Hospitalist Condition: Fair Forms Stand Alone Forms: My [facility] [place] [employer] Prescriptions Prescriptions: No Action hydroxyzine HCl 25 mg tablet 25 mg PO TID PRN (Reason: anxiety) Qty: 90 1RF calcium acetate(phosphat bind) 667 mg capsule 1,334 mg PO TIDM 90 Days Qty: 540 3RF amlodipine 10 mg tablet 10 mg PO QAM Qty: 90 2RF cholecalciferol (vitamin D3) 125 mcg (5,000 unit) tablet 125 mcg PO QAM Qty: 90 1RF ketoconazole 2 % cream 1 applic topical DIRECTED Rx Instructions: Apply as directed at Cath site clonidine HCl 0.3 mg tablet 0.3 mg PO DAILY Qty: 30 0RF hydralazine 100 mg tablet 100 mg PO TID Qty: 90 0RF Medical Marijuana 1 dose PO DIRECTED PRN (Reason: Other) labetalol 200 mg Tablet 200 mg PO BID Qty: 60 0RF torsemide 20 mg Tablet 40 mg PO BID17 Qty: 60 0RF Referrals Referrals: Harsh Marshall DO [Primary Care Provider] -
--- NOTE | 2025-04-10 00:59 | History & Physical Report ---
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 #Nausea/vomiting/diarrhea - per pt, last admission had upset stomach but on 04/09 had several episodes of nonbloody diarrhea - no fevers on admission - blood cx pending - will do UA - suspect viral in nature at this time but will place for c diff test vs secondary to uremia - clear diet to start but pt may have crackers as tolerated - zofran prn #Headache #Hypertensive emergency - given resolution last admission with control of BP, suspect this is most directly related to elevated BP on admission 190-200s systolic - continue home po BP meds; amlodipine, hydralazine, labetalol po - will hold home clonidine just overnight (last dose was 7:30 pm 04/09 and he takes this daily) - given IV labetalol on admission, initial goal <185/110 - renal artery US; unremarkable #[facility] - consult nephro for dialysis arrangement, pt not obviously overloaded on exam today - continue home renal meds VTE ppx: low risk, defer on admission History of Present Illness Chief Complaint: Nausea/vomiting, hypertensive urgency Primary Care Provider: Harsh Marshall DO Pt is a 20 yo male with a past med hx of 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 Pt is presenting today with his mom in the room. He states that he was discharged on 04/08 and felt well all day after getting home. He states that the next day on 04/09 he woke up again with headache and then throughout the day developed nausea and had 3 episodes of nonbloody vomit. He states he also had several episodes of nonbloody diarrhea. His mom states he was having an upset stomach even before last admission but was constipated when he got home on 04/08. He states he took his medications as prescribed, last dose of po clonidine and labetalol was around 7:30 pm on 04/09, prior to arrival at the hospital as he came in due to having no relief with these medications. Denies fevers but states he did feel cold initially when he got here and now feels a bit more warm. No prior hx of migraines. His headache pain is frontal and behind the eyes, no pain with extraocular eye movements, no blurry vision or double vision. He does note some light sensitivity and sensitivity to sound. Reglan given in the ED has resolved his nausea. No chest pain or SOB. No abdominal pain at the time of exam. No dysuria. Last session of dialysis was as scheduled on Monday and went okay per pt. Allergies Allergy/AdvReac Type Severity Reaction Status Date / Time No Known Allergies Allergy Unknown Verified 04/07/25 18:44 Home Medications Medication Instructions Recorded Confirmed Type hydroxyzine HCl 25 mg tablet 25 mg PO TID PRN anxiety #90 tabs 11/13/24 04/09/25 Rx amlodipine 10 mg tablet 10 mg PO QAM #90 tabs 01/29/25 04/09/25 Rx calcium acetate(phosphat bind) 667 1,334 mg (2 x 667 mg) PO TIDM 90 01/29/25 04/09/25 Rx mg capsule days #540 caps cholecalciferol (vitamin D3) 125 125 mcg PO QAM #90 tabs 01/29/25 04/09/25 Rx mcg (5,000 unit) tablet Medical Marijuana 1 dose PO DIRECTED PRN Other 03/14/25 04/09/25 History ketoconazole 2 % topical cream 1 applic topical DIRECTED 04/01/25 04/09/25 History clonidine HCl 0.3 mg tablet 0.3 mg PO DAILY #30 tabs 04/06/25 04/09/25 Rx hydralazine 100 mg tablet 100 mg PO TID #90 tabs 04/06/25 04/09/25 Rx labetalol 200 mg tablet 200 mg PO BID #60 tabs 04/08/25 04/09/25 Rx torsemide 20 mg tablet 40 mg (2 x 20 mg) PO BID17 #60 tabs 04/08/25 04/09/25 Rx Past Med/Surg History Problem List (Updated 04/10/25 @ 00:34 by Rodolfo Encarnacion MD) Nausea & vomiting (Acute) Carious teeth Impacted teeth with abnormal position ESRD on hemodialysis (Acute) Headache (Acute) Hypertension (Acute) Headache PRES (posterior reversible encephalopathy syndrome) End stage renal disease (Acute) Hypertensive emergency (Acute) New onset seizure (Acute) Medical History Hx of metabolic acidosis Anticoagulated on Coumadin pt states he has not been taking his Coumadin since apprx mid January 2025 Dialysis patient [facility] in [place] > tues/thurs/sat History of postoperative nausea and vomiting Hx of deep venous thrombosis 01/2024 > right arm > was on warfarin > now DC'ed Cardiac murmur Anemia FSGS (focal segmental glomerulosclerosis) Generalized anxiety disorder Thrombophilia End stage renal disease follows with Dr. Woods - HD 3x per week:[facility] in [place] > tues/thurs/sat CKD (chronic kidney disease) Hypertension recently added clonidine 0.[address] woods Surgical History S/P hemodialysis catheter insertion (12/2024) perm cath for HD- right jugular S/P left knee arthroscopy H/O hernia repair Family History Mother Diabetes Grandfather (Maternal) Hypertension Other No family history of adverse response to anesthesia Denies family history of Ovarian cancer Prostate cancer Myocardial infarction Breast cancer Lung cancer Stroke Social History Smoking Status: Never smoker Tobacco Type: Cigarettes Second Hand Exposure: No; Do You Dip or Chew Tobacco: No; Hx Alcohol Use: No Hx Substance Use: Yes Last Used Substance: Days (ago) Last Used Substance Other:: 2 days Substance Use Type Other:: medical card daily > advised Preferred Language: Amharic Communication Ability: Effective Visual Impairment: No Limitations Hearing Ability: Normal Box Puller Required: No Beliefs That Will Affect Care: None marital status: Single Current Living Situation: Parent and Family Current Living Situation Comment: lives at home with family current occupational status: employed current occupation: [employer] How many Children do You have: 0 Other Information That Helps Us Care for You: No Feels Safe at Home: Yes Safety Concerns: Feels Safe At This Time Childhood Exposure to Second-Hand Smoke: No caffeine: No Dental Care, Regularly: Yes Physical Activity Frequency: 5-6 Times per Week Seatbelt Use: always Sunscreen Use: No Assistive Devices: None Review of Systems Review of Systems: Per HPI. Physical Exam Physical Exam: General: Alert and oriented, no acute distress, HEENT: Normocephalic, moist oral mucosa, EOMI Cardio: Regular rate and rhythm, Resp: Lungs clear to auscultation b/l, no wheezes or rhonchi, GI: Soft and nontender, nondistended, bowel sounds active Skin: Warm, pink, dry, port in place on R side of chest and appears clean and dry without obvious signs of infection Results & Data Results & Data Vital Signs (Past 12 Hours) Vital Signs Temp Pulse Resp BP Pulse Ox O2 Del Method 04/09/25 23:42 85 13 96 04/09/25 23:30 190/109 H 04/09/25 23:30 92 H 16 190/109 H 97 04/09/25 23:00 89 18 208/117 H 97 04/09/25 22:30 178/103 H 04/09/25 22:13 95 H 04/09/25 22:12 91 H 12 95 04/09/25 22:00 174/103 H 04/09/25 22:00 174/103 H 04/09/25 21:50 72 20 98 Room Air 04/09/25 21:39 82 36 H 98 04/09/25 21:36 81 27 H 98 04/09/25 21:32 178/107 H 04/09/25 21:32 178/107 H 04/09/25 21:21 36.9 C 83 16 174/108 H 99 Room Air Supervising Physician Co-Signing Physician Notes I personally saw and examined the patient. I independently reviewed the labs, EKG, imaging, problem list, medication list, past medical history and family history. I verified all pastrana points and agree with Dr Jenise Estrada DO with the following exceptions and/or additions: 20 year old male ESRD on dialysis presents to the ER with intractable nausea and vomiting O/E HS RRR, no murmurs, Chest CTAB, Abdo SNT A/P Intractable nausea/vomiting - ?due to uncontrolled HTN vs. gastroenteritis Uncontrolled hypertension - continue usual anti-hypertensives, labetalol 10mg IV PRN Resident Activity Tracking Resident Involvement: Resident Care Provided Care Provided: Adult Hospital Medicine
[2025-04-10] MEDS: LABETALOL HCL IV 5 MG/ML 20ML IV STA ×5 (01:17→07:21)
[2025-04-10] MEDS ORDERED: MELATONIN 3 MG TAB PO PRN (03:41)
[2025-04-10] MEDS ORDERED: POLYETHYLENE (MIRALAX) 17 GM PACK PO PRN (03:41)
--- NOTE | 2025-04-10 07:37 | Billing Data ---
Date of Service April 10, 2025 Coding Level of Care Code 72950 INT INP/OBS CARE
[2025-04-10] MEDS: CALCIUM ACETATE 667 MG CAP/TAB PO SCH (08:18)
[2025-04-10] MEDS: TORSEMIDE 20 MG TAB PO SCH (08:18)
[2025-04-10] MEDS: CHOLECALCIFEROL 125 MCG (5,000 UNITS) TAB PO SCH (08:19)
[2025-04-10] MEDS: LABETALOL HCL 200 MG TAB PO SCH ×2 (08:19→09:59)
--- NOTE | 2025-04-10 09:09 | Hospitalist Progress Note ---
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 Patient this morning was still having blood pressure >200/100 systolic overnight and this morning. Was given IV 50mg of labetalol last night and an additional 20mg IV this morning (total of 70mg). Resumed patient's home medications and blood pressure went back down to 157-175/55-90. When visiting him this morning, he appeared hemodynamically stable and without any symptoms. He denied any N/V/D, chest pain, SOB, and not tender in his lower abdomen. Patient stated that his vision was getting better as well. However, during dialysis patient was having migraine pain. After ordering IV mag, Depakote, and Dilaudid the patient was feeling better. However, the patient began to have his migraine come back which caused vomiting. #Nausea/vomiting/diarrhea - per pt, last admission had upset stomach but on 04/09 had several episodes of nonbloody diarrhea - no fevers on admission - blood cx pending - will do UA - suspect viral in nature at this time but will place for c diff test vs secondary to uremia - clear diet to start but pt may have crackers as tolerated - zofran prn - Patient recently vomited from migraine #Headache -migraine headache during dialysis -ordered 3 bags of magnesium and Depakote. However pain was still intense and ordered 0.25 mg IV Dilaudid. -Migraine came back and added Benadryl 50mg IV #Hypertensive emergency - given resolution last admission with control of BP, suspect this is most directly related to elevated BP on admission 190-200s systolic - continue home po BP meds; amlodipine, hydralazine, labetalol po - will resume home clonidine - given IV labetalol on admission, initial goal <185/110 - renal artery US; unremarkable - Labetolol home medication was increased to 400mg BID. #ESRD on dialysis TuesThSat due to FSGS - consult nephro for dialysis arrangement, pt not obviously overloaded on exam today - continue home renal meds VTE ppx: low risk, defer on admission Admission and Anticipated Discharge Date Admission Date: April 10, 2025 Supervising Physician Co-Signing Physician Notes I personally examined the patient and verified all pastrana points of history and exam, discussed case, and agree with decision making with Dr Amy edwards. Notes that the headache was what was causing the nausea and vomiting earlier as well. He has visual changes from a week and a half ago are almost resolved and he has no new visual changes. Mentally he feels okay, and he has had no further seizures. He does however have severe headaches similar to before. His tooth is not really bothering him as much today. Vitals noted, in general he is awake and alert oriented appears somewhat uncomfortable from the headache but is in no distress. HEENT normocephalic atraumatic mucous membranes moist. Right greater than left suboccipitals high tone, tender, decreased range of motioninhibitory pressuretissue texture improved, patient tolerated well. Breathing unlabored no accessory muscle use good effort. Skin without rashes pallor or icterus. Neuro shows cranial nerves II through XII be grossly intact and gross motor and sensory are intact. Headachesuspect this is migrainous. A week and a half ago he had a hypertensive headache resulting in blurred vision seizure as well as press changes on MRI. This week it has been more typical migrainous (frontal and suboccipital with photophobia and nausea) and he has not had any other ancillary neurologic signs or symptoms. The exact trigger for the migraine is not entirely clearI am a little bit worried about it being related to his bad tooth on the left lower side, but today the headache is bad and the tooth is not really bothering him. He does have a lot of suboccipital tension and it might simply be a tension headache creating a migraine headache and perpetuating each other. Certainly need to manage the blood pressure more aggressively, to be on the safe side, but to be clear I do not believe this is a hypertensive headache at this time, but rather that the headache and pain are spiking the blood pressure (or simply that his blood pressure requires better baseline control). OMT as above, magnesium given, Depakote givenall of this helped during his last admission, not as much this time. Will give additional Depakote and Benadryl. Yuliyaaudid as needed. Obviously ongoing titration of blood pressure control. CT of his head was negative yesterday, with no neurologic findings on exam and resolving neurologic symptoms from a week and a half ago, I am not sure that any follow-up brain MRI would be of benefit to him. Continue to follow closely. Otherwise as above. Subjective Patient is a 20 year old male with history of who presented into the ER due to nausea, vomitting, and severe hypertension. 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. Patient on first visit this morning looked well. He stated that yesterday he couldn't stop vomiting and had body aches. Though patient today denied N/V/D, chest pain, and shortness of breath. He also reported that he wasnt tender in his lower abdomen anymore. He also said his vision is getting better. In the afternoon during dialysis patient was having bad migraine headaches. He started having these migraines when he had his seizures last week (he was admitted last week). He said that the pain gets better when covering his eyes. Review of Systems Review of Systems: per subjective HPI Physical Exam Constitutional: WD/WN, vitals as above Respiratory: normal respiratory effort, lungs clear to auscultation Cardiovascular: Rate/Rhythm: regular rate and regular rhythm Heart Sounds: + murmur (systolic) Musculoskeletal: Extremities: strength 5/5 throughout Neurologic: CN 3, 4, 5, 6, 7, 8, 11, 12 grossly intact Results & Data Results & Data Vital Signs (Past 12 Hours) Vital Signs Temp Pulse Pulse Resp BP BP Pulse Ox 04/10/25 08:56 168/90 H 04/10/25 08:26 36.7 C 86 18 209/123 H 97 04/10/25 07:36 82 204/117 H 04/10/25 07:21 85 204/110 H 04/10/25 07:17 204/110 H 04/10/25 06:44 83 202/117 H 04/10/25 06:23 87 198/113 H 04/10/25 06:15 87 198/113 H 04/10/25 05:59 89 199/100 H 04/10/25 05:57 89 199/100 H 04/10/25 05:38 96 H 204/110 H 04/10/25 05:05 93 H 194/108 H 04/10/25 04:47 192/95 H 04/10/25 04:47 97 H 192/95 H 04/10/25 04:28 88 209/114 H 04/10/25 04:15 209/114 H 04/10/25 03:51 36.6 C 87 20 182/110 H 95 04/10/25 03:43 79 04/10/25 03:41 04/10/25 03:41 36.6 C 87 20 182/110 H 95 04/10/25 03:00 85 21 186/118 H 95 04/10/25 02:12 90 04/10/25 01:57 92 H 181/92 H 04/10/25 01:39 94 H 22 181/92 H 96 04/10/25 01:27 95 H 15 181/92 H 96 04/10/25 01:18 92 H 19 194/124 H 96 04/09/25 23:42 85 13 96 04/09/25 23:30 190/109 H 04/09/25 23:30 92 H 16 190/109 H 97 04/09/25 23:00 89 18 208/117 H 97 04/09/25 22:30 178/103 H 04/09/25 22:13 95 H 04/09/25 22:12 91 H 12 95 04/09/25 22:00 174/103 H 04/09/25 22:00 174/103 H 04/09/25 21:50 72 20 98 04/09/25 21:39 82 36 H 98 04/09/25 21:36 81 27 H 98 04/09/25 21:32 178/107 H 04/09/25 21:32 178/107 H 04/09/25 21:21 36.9 C 83 16 174/108 H 99 Pulse Ox O2 Del Method O2 Del Method 04/10/25 08:56 04/10/25 08:26 Room Air 04/10/25 07:36 04/10/25 07:21 04/10/25 07:17 04/10/25 06:44 04/10/25 06:23 04/10/25 06:15 04/10/25 05:59 04/10/25 05:57 04/10/25 05:38 04/10/25 05:05 04/10/25 04:47 04/10/25 04:47 04/10/25 04:28 04/10/25 04:15 04/10/25 03:51 Room Air 04/10/25 03:43 04/10/25 03:41 95 Room Air 04/10/25 03:41 Room Air 04/10/25 03:00 04/10/25 02:12 04/10/25 01:57 04/10/25 01:39 04/10/25 01:27 04/10/25 01:18 04/09/25 23:42 04/09/25 23:30 04/09/25 23:30 04/09/25 23:00 04/09/25 22:30 04/09/25 22:13 04/09/25 22:12 04/09/25 22:00 04/09/25 22:00 04/09/25 21:50 Room Air 04/09/25 21:39 04/09/25 21:36 04/09/25 21:32 04/09/25 21:32 04/09/25 21:21 Room Air
[2025-04-10] MEDS: ACETAMINOPHEN 325 MG TAB PO PRN (09:22)
[2025-04-10 09:27] LABS: Hematocrit (blood only) 31.2 % (42.0-52.0); Hemoglobin 10.6 g/dl (14.0-18.0); Immature Granulocytes # (auto) 0.01 K/uL (0.01-0.20); Immature Granulocytes % (auto) 0.2 %; Mean Corpuscular Hemoglobin 30.2 pg (25.0-34.0); Mean Corpuscular Volume 88.9 fL (80.0-100.0); Platelet Count 142 K/uL (130-400); RDW Standard Deviation 45.0 fL (36.4-46.3); Red Blood Count 3.51 M/uL (4.70-6.10); White Blood Count 4.76 K/ul (4.8-10.8)
[2025-04-10 09:39] LABS: Appearance Urine Clear (Clear); Bacteria Urine Automated None Seen (None Seen); Cast Urine Automated 0-2 /lpf (0-2); Epithelial Cell Urine Auto 0-2 /hpf (0-2); Glucose Urine UA Trace (Negative); RBC Urine Automated 0-2 /hpf (0-2)
[2025-04-10 09:46] LABS: Alanine Aminotransferase 10.0 U/L (7-52); Albumin Globulin Ratio 2.0 (0.9-2); Alkaline Phosphatase 67.0 U/L (34-104); Anion Gap 12.0 (3-11); Bilirubin,Total 0.6 mg/dl (0.2-1.0); Blood Urea Nitrogen 62.0 mg/dl (6-23); Calcium 9.2 mg/dl (8.6-10.3); Carbon Dioxide 25.0 mmol/L (21-32); Chloride 94.0 mmol/L (98-107); Creatinine Clr Calc Pharmacy 9.2 ml/min; Globulin 2.0 gm/dl (2.5-4.0); Glucose 99.0 mg/dl (70-99(Fasting)); Magnesium 2.7 mg/dl (1.7-2.4); Potassium 5.2 mmol/L (3.5-5.1); Sodium 131.0 mmol/L (136-145); Total Protein 5.9 gm/dl (6.0-8.3)
[2025-04-10] MEDS: MAGNESIUM SULFATE / D5W 1 GM/100 ML BAG IV ONE (11:50)
[2025-04-10] MEDS: VALPROATE SOD 500 MG in DEXTROSE 5% 50 ML IV STA (11:50)
--- NOTE | 2025-04-10 12:31 | Nephrology Consultation ---
Date of Consultation April 10, 2025 Assessment & Plan (1) End stage renal disease: (2) Hypertensive emergency: (3) Headache: (4) Hyperkalemia: (5) Nausea & vomiting: Plan 20-year-old male with end-stage kidney disease and hypertensive urgency, secondary to primary FSGS requiring renal, recently started on dialysis. Presented to the hospital with headache, N/V, diarrhea and hypertensive emergency. w/u has been unremarkable. Blood pressure started to improve after receiving IV labetalol. -- continue torsemide 40 mg twice a day -- increase labetalol to 400 mg twice a day starting tomorrow -- start on Spironolactone 25 mg/d, strictly follow low potassium diet, continue with 2K potassium at dialysis. If potassium significantly elevated, will start on Lokelma. -- Continue on amlodipine, hydralazine, clonidine -- will consider doxazosin if blood pressure remains poorly controlled --OK to use NSAID prn for headache -- Will plan for UF as tolerated with HD. --left arm nephrology precaution Thank you for allowing me to participate in your patient's care. It was a pleasure to see Fito. History of Present Illness Reason for Consultation: Hypertensive emergency, ESRD, headache. Attending Physician: Ja Wisdom DO History of Present Illness Mr. Kvng Ramos is a 20 year-old male with past medical history significant for end-stage kidney disease, hypertension, history of recent hypertensive emergency and seizure, admitted to the hospital with hypertensive emergency, headache and need for dialysis. Nephrology consult requested for management of above. EMR records were reviewed in detail during patient's visit. Fito presented to ER yesterday with headache, nausea, vomiting and several episodes of nonbloody diarrhea and noted to be in hypertensive emergency. SBP around 220, DBP > 110's. Was notable for mild hyperkalemia, hyponatremia. Hemoglobin stable. He was just admitted to the hospital from 04/07/2025 to 04/08/2025 with hypertensive urgency. w/u CT head, renal artery Doppler was negative. He was started on labetalol and diuretic was changed to torsemide with improvement in blood pressure. Had dialysis on Monday and was discharged home. Prior to that he was admitted from 04/02/25 to 04/06/25 with hypertensive emergency and new onset seizure. Systolic blood pressure initially was above 230s and blood pressure eventually improved after [id number] dialysis and significant UF for few days. MRI was negative for acute stroke but was consistent with PRES. During last admission random cortisol, TSH was unremarkable. Workup for pheochromocytoma was ordered during last admission, result currently pending although prior CT abdomen pelvis showed otherwise normal adrenal gland. Renal artery Doppler done August 2023 was unremarkable with no hemodynamically significant renal artery stenosis. Prior renal ultrasound showed echogenic kidneys. He was discharged yesterday. Last dialysis was Monday. He presented this morning with headache and noted to have elevated blood pressure. Systolic blood pressure has been staying around 160s to 170s, diastolic 90s to 100. He has been on 4 antihypertensive medications including amlodipine 10 mg daily, hydralazine 100 mg 3 times daily, torsemide 40 mg twice a day, clonidine 0.3 mg daily. He was also started on as needed clonidine and hydralazine. Started having nephrotic range proteinuria since age 7, he reports overall feeling poorly. About 20 g/day. 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 A follow up biopsy obtained in September 2023 was consistent with advanced kidney disease ( glomeruli globally sclerosed; ~70% IFTA) and primary FSGS. He missed many follow-up visit and eventually over last 1 year kidney function progressively declined and he was started on dialysis in January 2025 via tunneled dialysis catheter. He has been getting dialysis at [facility] at [place] Monday, , Monday. He is still making urine. He was seen during HD. Continues to have headache without much improvement. Pressure started to improve, systolic blood pressure was down to 160/75. Allergies Allergy/AdvReac Type Severity Reaction Status Date / Time No Known Allergies Allergy Unknown Verified 04/07/25 18:44 Home Medications Medication Instructions Recorded Confirmed Type hydroxyzine HCl 25 mg tablet 25 mg PO TID PRN anxiety #90 tabs 11/13/24 04/09/25 Rx amlodipine 10 mg tablet 10 mg PO QAM #90 tabs 01/29/25 04/09/25 Rx calcium acetate(phosphat bind) 667 1,334 mg (2 x 667 mg) PO TIDM 90 01/29/25 04/09/25 Rx mg capsule days #540 caps cholecalciferol (vitamin D3) 125 125 mcg PO QAM #90 tabs 01/29/25 04/09/25 Rx mcg (5,000 unit) tablet Medical Marijuana 1 dose PO DIRECTED PRN Other 03/14/25 04/09/25 History ketoconazole 2 % topical cream 1 applic topical DIRECTED 04/01/25 04/09/25 History clonidine HCl 0.3 mg tablet 0.3 mg PO DAILY #30 tabs 04/06/25 04/09/25 Rx hydralazine 100 mg tablet 100 mg PO TID #90 tabs 04/06/25 04/09/25 Rx labetalol 200 mg tablet 200 mg PO BID #60 tabs 04/08/25 04/09/25 Rx torsemide 20 mg tablet 40 mg (2 x 20 mg) PO BID17 #60 tabs 04/08/25 04/09/25 Rx Patient History Medical History Hx of metabolic acidosis Anticoagulated on Coumadin pt states he has not been taking his Coumadin since apprx mid January 2025 Dialysis patient [facility] in [place] > tues/thurs/sat History of postoperative nausea and vomiting Hx of deep venous thrombosis 01/2024 > right arm > was on warfarin > now DC'ed Cardiac murmur Anemia FSGS (focal segmental glomerulosclerosis) Generalized anxiety disorder Thrombophilia End stage renal disease follows with Dr. Woods - HD 3x per week:[facility] in [place] > tues/thurs/sat CKD (chronic kidney disease) Hypertension recently added clonidine 0.[address] woods Surgical History S/P hemodialysis catheter insertion (12/2024) perm cath for HD- right jugular S/P left knee arthroscopy H/O hernia repair Family History Mother Diabetes Grandfather (Maternal) Hypertension Other No family history of adverse response to anesthesia Denies family history of Ovarian cancer Prostate cancer Myocardial infarction Breast cancer Lung cancer Stroke Social History Smoking Status: Never smoker Tobacco Type: Cigarettes Second Hand Exposure: No; Do You Dip or Chew Tobacco: No; Hx Alcohol Use: No Hx Substance Use: Yes Last Used Substance: Days (ago) Last Used Substance Other:: 2 days Substance Use Type Other:: medical card daily > advised Preferred Language: Malian Communication Ability: Effective Visual Impairment: No Limitations Hearing Ability: Normal Ceiling Insulation Blower Required: No Beliefs That Will Affect Care: None marital status: Single Current Living Situation: Parent and Family Current Living Situation Comment: lives at home with family current occupational status: employed 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 How many Children do You have: 0 Other Information That Helps Us Care for You: No Feels Safe at Home: Yes Safety Concerns: Feels Safe At This Time Childhood Exposure to Second-Hand Smoke: No caffeine: No Dental Care, Regularly: Yes Physical Activity Frequency: 5-6 Times per Week Seatbelt Use: always Sunscreen Use: No Assistive Devices: None Review of Systems Review of Systems: All systems reviewed & are unremarkable except as noted in HPI & below Physical Exam Constitutional: WD/WN, vitals as above + ill appearing Eyes: + anicteric sclerae Respiratory: no respiratory distress Auscultation: lungs clear to auscultation bilaterally Cardiovascular: Rate/Rhythm: regular rate and regular rhythm Heart Sounds: normal S1 and normal S2 Extremities: + vascular access device (Rt IJ TDC); no edema Gastrointestinal (Abdomen): Inspection/Auscultation: abdomen normal to inspection Musculoskeletal: Extremities: extremities normal to inspection Skin: no rashes, warm and dry Neurologic: no focal motor deficits Psychiatric: Orientation: alert and oriented x 3 Affect: euthymic affect Results & Data Vital Signs (Past 12 Hours) Vital Signs Temp Pulse Pulse Resp BP BP Pulse Ox 04/10/25 12:00 36.9 C 87 175/76 H 04/10/25 11:30 92 H 157/89 H 04/10/25 11:00 91 H 160/55 H 04/10/25 10:30 85 160/75 H 04/10/25 10:01 36.8 C 80 169/85 H 04/10/25 09:52 36.8 C 04/10/25 08:56 168/90 H 04/10/25 08:26 36.7 C 86 18 209/123 H 97 04/10/25 07:36 82 204/117 H 04/10/25 07:21 85 204/110 H 04/10/25 07:17 204/110 H 04/10/25 06:44 83 202/117 H 04/10/25 06:23 87 198/113 H 04/10/25 06:15 87 198/113 H 04/10/25 05:59 89 199/100 H 04/10/25 05:57 89 199/100 H 04/10/25 05:38 96 H 204/110 H 04/10/25 05:05 93 H 194/108 H 04/10/25 04:47 192/95 H 04/10/25 04:47 97 H 192/95 H 04/10/25 04:28 88 209/114 H 04/10/25 04:15 209/114 H 04/10/25 03:51 36.6 C 87 20 182/110 H 95 04/10/25 03:43 79 04/10/25 03:41 04/10/25 03:41 36.6 C 87 20 182/110 H 95 04/10/25 03:00 85 21 186/118 H 95 04/10/25 02:12 90 04/10/25 01:57 92 H 181/92 H 04/10/25 01:39 94 H 22 181/92 H 96 04/10/25 01:27 95 H 15 181/92 H 96 04/10/25 01:18 92 H 19 194/124 H 96 Pulse Ox O2 Del Method O2 Del Method 04/10/25 12:00 04/10/25 11:30 04/10/25 11:00 04/10/25 10:30 04/10/25 10:01 04/10/25 09:52 04/10/25 08:56 04/10/25 08:26 Room Air 04/10/25 07:36 04/10/25 07:21 04/10/25 07:17 04/10/25 06:44 04/10/25 06:23 04/10/25 06:15 04/10/25 05:59 04/10/25 05:57 04/10/25 05:38 04/10/25 05:05 04/10/25 04:47 04/10/25 04:47 04/10/25 04:28 04/10/25 04:15 04/10/25 03:51 Room Air 04/10/25 03:43 04/10/25 03:41 95 Room Air 04/10/25 03:41 Room Air 04/10/25 03:00 04/10/25 02:12 04/10/25 01:57 04/10/25 01:39 04/10/25 01:27 04/10/25 01:18 PG Care Time/CCT Total # of Minutes Spent Total Time Spent with Patient: Total time spent is greater than 50% in coordination of care (as documented) at patient's floor/unit and/or counseling patient: Coding Level of Care Code 97676 INT INP/OBS CARE 3/75MIN Diagnoses End stage renal disease N18.6 Hypertensive emergency I16.1 Other headache syndrome G44.89 Headache type: other headache syndrome Hyperkalemia E87.5 Nausea & vomiting R11.2 (3) Headache Headache type: other headache syndrome Qualified Code(s): G44.89 - Other headache syndrome
[2025-04-10] MEDS: HYDROmorphone INJ 0.5 MG/0.5 ML SYR IV STA ×2 (13:05→13:41)
[2025-04-10] MEDS: ONDANSETRON INJ 2 MG/ML 2 ML VIAL IV PRN (13:10)
[2025-04-10] MEDS: MAGNESIUM SULFATE / D5W 1 GM/100 ML BAG IV SCH (13:17)
[2025-04-10] MEDS ORDERED: HYDROmorphone INJ 0.5 MG/0.5 ML SYR IV PRN (13:22)
[2025-04-10] MEDS: SPIRONOLACTONE 25 MG TAB PO SCH (14:25)
--- NOTE | 2025-04-10 14:34 | Electrocardiogram Report ---
Test Reason : Blood Pressure : */* mmHG Vent. Rate : 77 BPM Atrial Rate : 77 BPM P-R Int : 148 ms QRS Dur : 106 ms QT Int : 394 ms P-R-T Axes : 63 60 66 degrees QTcB Int : 445 ms Normal sinus rhythm Normal ECG When compared with ECG of 09-Apr-2025 21:38, (unconfirmed) No significant change was found Confirmed by Neal Patel ([id number]) on 04/10/2025 2:34:13 PM Referred By: REFERRED SELF Confirmed By: Neal Patel
--- NOTE | 2025-04-10 14:34 | Electrocardiogram Report ---
Test Reason : Blood Pressure : */* mmHG Vent. Rate : 82 BPM Atrial Rate : 82 BPM P-R Int : 164 ms QRS Dur : 94 ms QT Int : 380 ms P-R-T Axes : 68 73 72 degrees QTcB Int : 443 ms Normal sinus rhythm Possible Left atrial enlargement Otherwise Normal ECG When compared with ECG of 01-Apr-2025 08:16, No significant change was found Confirmed by Neal Patel ([id number]) on 04/10/2025 2:34:07 PM Referred By: REFERRED SELF Confirmed By: Neal Patel
[2025-04-10] MEDS: diphenhydrAMINE 50 MG/ML VIAL IV STA (15:06)
--- NOTE | 2025-04-10 18:59 | Billing Data ---
Date of Service April 10, 2025 Coding Level of Care Code 83605 SUB INP/OBS CARE MIN
[2025-04-10] MEDS: DIVALPROEX EXTENDED RELEASE 500 MG TAB PO SCH (20:11)
[2025-04-11 06:33] VITALS: O2SAT 96
[2025-04-11 06:51] LABS: Hematocrit (blood only) 30.9 % (42.0-52.0); Hemoglobin 10.8 g/dl (14.0-18.0); Immature Granulocytes # (auto) 0.01 K/uL (0.01-0.20); Immature Granulocytes % (auto) 0.2 %; Mean Corpuscular Hemoglobin 31.6 pg (25.0-34.0); Mean Corpuscular Volume 90.4 fL (80.0-100.0); Platelet Count 140 K/uL (130-400); RDW Standard Deviation 44.6 fL (36.4-46.3); Red Blood Count 3.42 M/uL (4.70-6.10); White Blood Count 4.02 K/ul (4.8-10.8)
[2025-04-11 07:14] LABS: Anion Gap 8.0 (3-11); Blood Urea Nitrogen 31.0 mg/dl (6-23); Calcium 8.9 mg/dl (8.6-10.3); Carbon Dioxide 31.0 mmol/L (21-32); Chloride 97.0 mmol/L (98-107); Creatinine Clr Calc Pharmacy 13.2 ml/min; Glucose 103.0 mg/dl (70-99(Fasting)); Magnesium 3.0 mg/dl (1.7-2.4); Potassium 4.5 mmol/L (3.5-5.1); Sodium 136.0 mmol/L (136-145)
[2025-04-11] MEDS: SPIRONOLACTONE 25 MG TAB PO SCH (08:52)
--- NOTE | 2025-04-11 10:12 | Nephrology Progress Note ---
Date of Service April 11, 2025 Assessment & Plan (1) End stage renal disease: (2) Hypertensive emergency: (3) Headache: (4) Hyperkalemia: (5) Nausea & vomiting: Plan 20-year-old male with end-stage kidney disease and hypertensive urgency, secondary to primary FSGS requiring renal, recently started on dialysis. Presented to the hospital with headache, N/V, diarrhea and hypertensive emergency. w/u has been unremarkable. Blood pressure started to improve after receiving IV labetalol. -- continue torsemide 40 mg twice a day, low sodium diet -- continue labetalol 400 mg twice a day -- discontinue Spironolactone, strictly follow low potassium diet, continue with 2K potassium at dialysis. -- Continue on amlodipine, hydralazine, clonidine -- start doxazosin 2 mg qhs --OK to use NSAID prn for headache --left arm nephrology precaution --HD tomorrow Admission and Anticipated Discharge Date Admission Date: April 10, 2025 Dimas Payton was seen and evaluated this morning. He reports overall feeling much better, headache resolved. Although blood pressure occasionally improved but continues to go up to 180 or higher systolic. Electrolyte acceptable, had dialysis yesterday had 3 L UF. Review of Systems Review of Systems: All systems reviewed & are unremarkable except as noted in Subjective Physical Exam Constitutional: WD/WN, vitals as above Eyes: + anicteric sclerae Respiratory: no respiratory distress Auscultation: lungs clear to auscultation bilaterally Cardiovascular: Rate/Rhythm: regular rate and regular rhythm Heart Sounds: normal S1 and normal S2 Extremities: + vascular access device (Rt IJ TDC); no edema Musculoskeletal: Extremities: extremities normal to inspection Skin: no rashes, warm and dry Neurologic: no focal motor deficits Psychiatric: Orientation: alert and oriented x 3 Affect: euthymic affect Results & Data Vital Signs (Past 12 Hours) Vital Signs Temp Pulse Pulse Resp BP Pulse Ox Pulse Ox 04/11/25 07:43 36.8 C 80 18 185/98 H 96 04/11/25 07:18 85 04/11/25 03:53 36.7 C 87 20 165/98 H 94 04/11/25 03:41 96 04/11/25 00:28 37.0 C 90 20 145/70 H 93 O2 Del Method O2 Del Method 04/11/25 07:43 Room Air 04/11/25 07:18 04/11/25 03:53 Room Air 04/11/25 03:41 Room Air 04/11/25 00:28 Room Air PG Care Time/CCT Total # of Minutes Spent Total Time Spent with Patient: Total time spent is greater than 50% in coordination of care (as documented) at patient's floor/unit and/or counseling patient: Coding Level of Care Code 66589 SUB INP/OBS CARE 2/35MIN Diagnoses End stage renal disease N18.6 Hypertensive emergency I16.1 Other headache syndrome G44.89 Headache type: other headache syndrome Hyperkalemia E87.5 Nausea & vomiting R11.2 (3) Headache Headache type: other headache syndrome Qualified Code(s): G44.89 - Other headache syndrome
[2025-04-11 10:26] LABS: Cdiff Toxin B Gene (2yr or >) Negative Cdiff Gene (Neg)
[2025-04-11 11:49] VITALS: BP 156/83; RESP 16; TEMP 98.1
[2025-04-11 13:22] VITALS: PULSE 86
--- NOTE | 2025-04-11 13:47 | Discharge Summary ---
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 Pt is presenting today with his mom in the room. He states that he was discharged on 04/08 and felt well all day after getting home. He states that the next day on 04/09 he woke up again with headache and then throughout the day developed nausea and had 3 episodes of nonbloody vomit. He states he also had several episodes of nonbloody diarrhea. His mom states he was having an upset stomach even before last admission but was constipated when he got home on 04/08. He states he took his medications as prescribed, last dose of po clonidine and labetalol was around 7:30 pm on 04/09, prior to arrival at the hospital as he came in due to having no relief with these medications. Denies fevers but states he did feel cold initially when he got here and now feels a bit more warm. No prior hx of migraines. His headache pain is frontal and behind the eyes, no pain with extraocular eye movements, no blurry vision or double vision. He does note some light sensitivity and sensitivity to sound. Reglan given in the ED has resolved his nausea. No chest pain or SOB. No abdominal pain at the time of exam. No dysuria. Last session of dialysis was as scheduled on Monday and went okay per pt. Admission Exam Per Admitting Provider General: Alert and oriented, no acute distress, HEENT: Normocephalic, moist oral mucosa, EOMI Cardio: Regular rate and rhythm, Resp: Lungs clear to auscultation b/l, no wheezes or rhonchi, GI: Soft and nontender, nondistended, bowel sounds active Skin: Warm, pink, dry, port in place on R side of chest and appears clean and dry without obvious signs of infection Principal Diagnosis Nausea, Vomiting, HTN, Migraines Discharge Exam Constitutional WD/WN, vitals as above Respiratory normal respiratory effort, lungs clear to auscultation Cardiovascular Rate/Rhythm: regular rate and regular rhythm Heart Sounds: + murmur (systolic) Psychiatric A+Ox3, euthymic affect Discharge Data Allergies Allergy/AdvReac Type Severity Reaction Status Date / Time No Known Allergies Allergy Unknown Verified 04/07/25 18:44 Consultations 04/09/25 23:32 ED Decision to Admit Stat 04/10/25 03:41 Consult Nephrology Routine Ordered Studies 04/09/25 21:50 CT abd pelvis IV con only Stat CT head/brain wo con Stat Hospital Course (1) Nausea & vomiting: (2) Hypertensive emergency: (3) End stage renal disease: Plan Pt is a 20 yo male with a past med hx of 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 (04/11) Patient this morning looked very well and stated he felt great. Patient reports that he has not had a headache since last night. When speaking with the patient, he said that his migraine trigger could be from his vision changes. With this new insight, we suggested that he put a patch of his right eye whenever he feels like a migraine is coming on. We also suggested he take Tylenol 1000mg and Benadryl 50mg to help as an abortive for his migraines. We also ordered Depakote 500mg daily as prophylaxis until his vision gets better or its April 25 and he has no headache. Patient denied chest pain and N/V/D. #Nausea/vomiting/diarrhea - per pt, last admission had upset stomach but on 04/09 had several episodes of nonbloody diarrhea - no fevers on admission - blood cx pending - will do UA. UA was unremarkable and showed no sign of infection. - suspect viral in nature at this time but will place for c diff test vs secondary to uremia. C. diff came back negative. - C. diff came back negative - clear diet to start but pt may have crackers as tolerated. Patient was having a good appetite today and put him back on renal diet (04/11) - zofran prn - Patient recently vomited from migraine (04/10) #Headache -migraine headache during dialysis yesterday (04/10) -ordered 3 bags of magnesium and Depakote. However pain was still intense and ordered 0.25 mg IV Dilaudid. -Migraine came back and added Benadryl 50mg IV -Resolved by discharge #Hypertensive emergency - given resolution last admission with control of BP, suspect this is most directly related to elevated BP on admission 190-200s systolic - continue home po BP meds; amlodipine, hydralazine, labetalol po - will resume home clonidine - given IV labetalol on admission, initial goal <185/110 - renal artery US; unremarkable - Labetolol home medication was increased to 400mg BID. #ESRD on dialysis TuesThSat due to FSGS - consult nephro for dialysis arrangement, pt not obviously overloaded on exam today - continue home renal meds VTE ppx: low risk, defer on admission Total Time Total Time Spent Total Time Spent (In Minutes): <30 Discharge Plan Discharge Items Patient Disposition: Home - Self-Care Reason For Visit: NAUSEA, VOMITING, HTN Discharge Diagnosis: Nausea, Vomiting, HTN Condition on Discharge: Good Activity: Resume your previous activity Non-emergency contact: Primary Care Provider Call non-emergency contact if: your symptoms worsen and your temperature is above 101.5 Follow-up/Referrals: Harsh Marshall DO [Primary Care Provider] - 04/17/25 (Continue with your previous follow-up appointment for 04/17/25) Diet: Dialysis Renal Addtl Attending Provider Instructions: You were admitted into the hospital because of nausea, vomiting and hypertension. During your stay you were also having some migraine pain. We provided multiple medications along with your current home medications to help with hypertension and migraines. When we spoke with you today, you mentioned how your vision could be the cause for your migraines. When you are starting to have a migraine, try putting a patch on your right eye to help lessen migraine pain, take 1000mg of Tylenol along with 50mg of Benadryl, and an ice pack behind your head to also help with the migraine pain. We are also prescribing Depakote (Valproic acid) as a medication to prevent future migraines. Continue to take this everyday until vision gets better or your body gets used to the new vision and you have no more migraine pain. If you have no headache til April 25 then stop the Depakote. For your vision, put a patch over your left eye to help your brain strengthen the vision in your right eye. But if you start to have some migraine pain, then put the patch over your right eye along with using the Tylenol and Benadryl. For your hypertension, your labetalol was increased to 400mg twice a day. New Medications: * Depakote 500mg by mouth once a day Medication Changes * Labetalol to 400mg twice a day It was a pleasure meeting and treating you. Pending Studies at Discharge: No Stand-Alone Forms: My [facility], Smoking Cessation Medications and DC Order Prescriptions: New divalproex [Depakote ER] 500 mg tablet extended release 24 hr 500 mg PO DAILY Qty: 30 0RF labetalol 200 mg tablet 400 mg PO BID Qty: 120 0RF doxazosin 2 mg tablet 2 mg PO HS Qty: 30 0RF Continued hydroxyzine HCl 25 mg tablet 25 mg PO TID PRN (Reason: anxiety) Qty: 90 1RF calcium acetate(phosphat bind) 667 mg capsule 1,334 mg PO TIDM 90 Days Qty: 540 3RF amlodipine 10 mg tablet 10 mg PO QAM Qty: 90 2RF cholecalciferol (vitamin D3) 125 mcg (5,000 unit) tablet 125 mcg PO QAM Qty: 90 1RF ketoconazole 2 % cream 1 applic topical DIRECTED Rx Instructions: Apply as directed at Cath site clonidine HCl 0.3 mg tablet 0.3 mg PO DAILY Qty: 30 0RF hydralazine 100 mg tablet 100 mg PO TID Qty: 90 0RF Medical Marijuana 1 dose PO DIRECTED PRN (Reason: Other) torsemide 20 mg Tablet 40 mg PO BID17 Qty: 60 0RF Changed labetalol 200 mg Tablet 400 mg PO BID Qty: 60 0RF Discharge Orders: Discharge Order (Routine); Ordered 04/11/25 Ordered By: Anival Reyes Admission Data Admit Date/Time: 04/10/25 02:02 Attending Provider: Ja Wisdom Admit Provider: Jenise Estrada Primary Care Provider: Harsh Marshall Other Providers: Andriy Woods; Bin Kauffman; Elsie Guevara Other Interventions: Discharge Summary Assessment (RN) Last Done: 04/11/25 13:20 Supervising Physician Co-Signing Physician Notes I personally examined the patient and verified all pastrana points of history and exam, discussed case, and agree with decision making with Dr Reyes Headache totally gone. Feels good and would like to go home. We discussed my concern about how quickly his headache came back earlier in the week in spite of it looking like it was gone, and discussed the potential of watching him into tomorrow. At the same time, he started to realize that his visual changes in his right eye (which are continuing to get progressively better) seem to be the trigger for the headachehe noted that last night in the middle the night as he was looking around the room he noticed that looking at things up close were not bothering him much but as he would look across the room the blurriness in his right eye would start to precipitate headache. Vitals noted, in general he is awake and alert pleasant no distress. HEENT normocephalic atraumatic mucous membranes moist. Breathing unlabored no accessory muscle use good effort. Skin without rashes pallor or icterus. Neuro without focal deficits. Headachesuspect this is migrainous. A week and a half ago he had a hypertensive headache resulting in blurred vision seizure as well as press changes on MRI. This week it has been more typical migrainous (frontal and suboccipital with photophobia and nausea) and he has not had any other ancillary neurologic signs or symptoms. For most of the week it was not entirely clear what the trigger for the migraines waswe entertained whether or not it was the bad tooth (once he was able to think about it more, the tooth has been bothering him off and on for quite a while definitely predating the headaches) and now it seems pretty clear and pretty logical that his visual changes in his right eye are the trigger for the migraines. Again as it relates to the PRES he has not had any further seizures and his visual changes are improving (albeit slowly) and so it has not appeared this week that he has had a truly hypertensive mediated headache. As it relates to the migraines, given that it has been a source for multiple readmissions through the week, although we discussed that it would obviously not be normal practice to initiate migraine prophylaxis for 2 headaches, given the severity and the consequences to his wellbeing, we both agreed that for the time being initiating migraine prophylaxis would make sense. He is tolerating Depakote well and it seems to be helpingtherefore we will have him take 500 mg of Depakote at bedtime (risk of sedation/grogginess outlined) and we discussed that hopefully he may not need it for very longgiven that the visual changes seem to be the headache trigger, and the visual changes are getting better, maybe he will need it for as little as a few weeks. Discussed parameters to self wean, and discussed that if he is still on it at the beginning of May it would be worth revisiting if he still needs it or not (simply given the tendency for medication lists to grow and rarely shrink). Discussed migraine abortive with 50 mg of Benadryl and 1000 mg of Tylenol. Discussed following up with an eye doctor (although we discussed that it is not likely this is a refraction issue, but more of a brain interpretation issue related to the DE ES that should get better with time, but if there was a degree of a refraction issue at play obviously helping it would also help). Discussed eye patching (patching his right eye to block the aberrant input that is triggering the migraines versus patching the left eye to force his right eye to work and potentially hasten improvementwith times that it may be reasonable to do either). Safe/stable for home.
--- NOTE | 2025-04-11 16:59 | Billing Data ---
Date of Service April 11, 2025 Coding Level of Care Code 95225 IN/OBS DISCH 30 MIN/LESS
[2025-04-11] MEDS ORDERED: DOXAZosin MESYLATE TAB 2 MG TAB PO SCH (21:00)
== END 2025-04-11 13:44 | disposition home or self-care (01) ==
LOC: ED 21:18 → 2N 21:18 → SUATTDRO 04-10 02:02 → 2N 04-10 03:25

== ENCOUNTER 2025-04-19 22:03 | Inpatient (IN) ==
[2025-04-19] MEDS: SODIUM CHLORIDE 0.9% 1,000 ML IV ONE (22:34)
[2025-04-19] MEDS: LABETALOL HCL IV 5 MG/ML 20ML IV STA (22:36)
[2025-04-19 22:52] LABS: Hematocrit (blood only) 26.3 % (42.0-52.0); Hemoglobin 9.1 g/dl (14.0-18.0); Immature Granulocytes # (auto) 0.01 K/uL (0.01-0.20); Immature Granulocytes % (auto) 0.2 %; Mean Corpuscular Hemoglobin 30.4 pg (25.0-34.0); Mean Corpuscular Volume 88.0 fL (80.0-100.0); Platelet Count 109 K/uL (130-400); RDW Standard Deviation 42.5 fL (36.4-46.3); Red Blood Count 2.99 M/uL (4.70-6.10); White Blood Count 6.04 K/ul (4.8-10.8)
[2025-04-19 23:15] LABS: Alanine Aminotransferase 10 U/L (7-52); Albumin Globulin Ratio 1.9 (0.9-2); Alkaline Phosphatase 60 U/L (34-104); Anion Gap 15 (3-11); Bilirubin,Total 0.8 mg/dl (0.2-1.0); Blood Urea Nitrogen 40 mg/dl (6-23); Calcium 9.2 mg/dl (8.6-10.3); Carbon Dioxide 31 mmol/L (21-32); Chloride 95 mmol/L (98-107); Globulin 2.0 gm/dl (2.5-4.0); Glucose 92 mg/dl (70-99(Fasting)); Lipase 26 U/L (11-82); Magnesium 2.5 mg/dl (1.7-2.4); Potassium 4.1 mmol/L (3.5-5.1); Sodium 141 mmol/L (136-145); Total Protein 5.7 gm/dl (6.0-8.3)
[2025-04-19] MEDS: MoRPHine SULFATE 4 MG/ML 1 ML CARP\\VIAL IV PRN (23:43)
[2025-04-19 23:45] LABS: Thyroid Stimulating Hormone 5.156 uIu/ml (0.300-4.500)
[2025-04-19] MEDS: ONDANSETRON INJ 2 MG/ML 2 ML VIAL IV STA (23:57)
[2025-04-19] MEDS: ONDANSETRON INJ 2 MG/ML 2 ML VIAL ONE (23:58)
--- NOTE | 2025-04-20 00:56 | History & Physical Report ---
Date of Service April 20, 2025 Assessment & Plan (1) Seizure: (2) PRES (posterior reversible encephalopathy syndrome): (3) ESRD on hemodialysis: Plan Kvng Ramos is a 20yo male presenting with two witnessed seizures. 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 He had a seizure during a prior admission - thought to be secondary to PRES. He was briefly on Keppra but then was discontinued. 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 #Seizure/Uncontrolled HTN/Likely PRES -Admit to PCU -Maintain seizure precautions -Check EEG -Check MRI Brain -Ativan PRN seizure activity -Gradual lowering of blood pressure -Continue home medications - Clonidine patch 0.3mg daily - this was just increased -Labetalol 400mg po BID -Losartan 50mg po BID -Amlodipine 10mg po daily -Torsemide 40mg po BID -Hydralazine 10mg IV q 4 hours PRN SBP >170 -Labetalol 10mg IV q 4 hours as needed for SBP > 170 #ESRD on HD -Continue Phoslo -Nephrology consultation appreciated #Anxiety/Depression -Continue Sertraline 25mg po daily History of Present Illness Chief Complaint: seizure Primary Care Provider: Harsh Marshall DO Kvng Ramos is a 20yo male with history of 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 Patient was recently admitted to [facility] after a new onset seizure. He was briefly managed with Keppra but ultimately thought that seizure secondary to PRES. Patient had HD today but his session was stopped early because he did not feel well. He developed headache, nausea and some non-bloody/non-bilious vomiting. He went home and was sleeping on the couch. His mom heard some movement around 21:00 and found patient to be seizing. She reports that his right arm was flexed up and his left arm was sticking out straight and the patient was convulsing for about 1-2 minutes. The convulsions stopped and patient was post- ictal and confused. In the ER patient had another witnessed seizure. He was given Ativan with resolution. He has no complaints at present. 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 ER Course: Ativan 2mg NSS x 1L Keppra 1700mg Labetalol 10mg IV Morphine 4mg IV Zofran 4mg IV Allergies Allergy/AdvReac Type Severity Reaction Status Date / Time No Known Allergies Allergy Unknown Verified 04/17/25 11:25 Home Medications Medication Instructions Recorded Confirmed Type hydroxyzine HCl 25 mg tablet 25 mg PO TID PRN anxiety #90 tabs 11/13/24 04/15/25 Rx amlodipine 10 mg tablet 10 mg PO QAM #90 tabs 01/29/25 04/20/25 Rx calcium acetate(phosphat bind) 667 1,334 mg (2 x 667 mg) PO TIDM 90 01/29/25 04/20/25 Rx mg capsule days #540 caps cholecalciferol (vitamin D3) 125 125 mcg PO QAM #90 tabs 01/29/25 04/20/25 Rx mcg (5,000 unit) tablet Medical Marijuana 1 dose PO DIRECTED PRN Other 03/14/25 04/15/25 History clonidine HCl 0.3 mg tablet 0.3 mg PO DAILY #30 tabs 04/06/25 04/15/25 Rx prochlorperazine maleate 10 mg 10 mg PO Q8H PRN nausea and 04/15/25 Rx tablet (Compazine) vomiting 5 days #15 tabs clonidine 0.3 mg/24 hr weekly 0.3 mg transdermal Q7D 04/17/25 04/20/25 History transdermal patch ketoconazole 2 % topical cream 1 applic topical .every other day 04/17/25 04/20/25 History PRN Rash labetalol 200 mg tablet 400 mg PO BID 04/17/25 04/20/25 History losartan 50 mg tablet 50 mg PO BID 04/17/25 04/20/25 History minoxidil 2.5 mg tablet 5 mg (2 x 2.5 mg) PO DAILY #30 tabs 04/17/25 04/17/25 Rx sertraline 25 mg tablet 25 mg PO DAILY #30 tabs 04/17/25 04/20/25 Rx torsemide 20 mg tablet 40 mg PO BID 04/17/25 04/20/25 History Past Med/Surg History Problem List (Updated 04/20/25 @ 03:57 by Linette Conde DO) Seizure Anxiety Hyperkalemia Nausea & vomiting (Acute) Carious teeth Impacted teeth with abnormal position ESRD on hemodialysis (Acute) Headache (Acute) Hypertension (Acute) Headache PRES (posterior reversible encephalopathy syndrome) End stage renal disease (Acute) Hypertensive emergency (Acute) New onset seizure (Acute) Medical History Hx of metabolic acidosis Anticoagulated on Coumadin pt states he has not been taking his Coumadin since apprx mid January 2025 Dialysis patient [facility] [place] > tues/thurs/sat History of postoperative nausea and vomiting Hx of deep venous thrombosis 01/2024 > right arm > was on warfarin > now DC'ed Cardiac murmur Anemia FSGS (focal segmental glomerulosclerosis) Generalized anxiety disorder Thrombophilia End stage renal disease follows with Dr. Woods - HD 3x per week:[facility] in [place] > tues/thurs/sat CKD (chronic kidney disease) Hypertension recently added clonidine 0.[address] woods Surgical History S/P hemodialysis catheter insertion (12/2024) perm cath for HD- right jugular S/P left knee arthroscopy H/O hernia repair Family History Mother Diabetes Grandfather (Maternal) Hypertension Other No family history of adverse response to anesthesia Denies family history of Ovarian cancer Prostate cancer Myocardial infarction Breast cancer Lung cancer Stroke Social History Smoking Status: Never smoker Tobacco Type: Smokeless Tobacco (Dip or Chew) Second Hand Exposure: No; Do You Dip or Chew Tobacco: No; Tobacco Cessation Education Requested by Patient: No Hx Alcohol Use: No Hx Substance Use: No Preferred Language: Chadian Communication Ability: Effective Visual Impairment: No Limitations Hearing Ability: Normal Vehicle 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 Required: No Beliefs That Will Affect Care: None marital status: Single Current Living Situation: Parent Current Living Situation Comment: lives at home with family current occupational status: employed current occupation: [employer] How many Children do You have: 0 Other Information That Helps Us Care for You: No Feels Safe at Home: Yes Childhood Exposure to Second-Hand Smoke: No caffeine: No Dental Care, Regularly: Yes Physical Activity Frequency: 5-6 Times per Week Seatbelt Use: always Sunscreen Use: No Assistive Devices: None Review of Systems Review of Systems: All systems reviewed & are unremarkable except as noted in HPI & below Physical Exam Physical Exam: General: patient somnolent, arousable, answers questions and follows commands Skin: warm, dry, intact, no rashes or lesions HEENT: NC/AT, PERRL, EOMI, anicteric sclera, conjunctiva without injection, external ear normal to inspection and nontender, nares patent, moist mucus membranes, dentition intact, no oropharyngeal lesions, neck supple, trachea midline, no LAD, no thyromegaly, no JVD Heart: +S1/S2, regular, no m/r/g Lungs: equal air entry bilaterally, no rales/rhonchi/wheezes Abd: +BS, soft, NT/ND, no masses/organomegaly/ascites Ext: warm, 2+ pulses in UE/LE bilaterally, no clubbing/cyanosis or edema Neuro: somnolent, arousable, answers questions and follows commands. MS 5/5 in UE/LE bilaterally with some prompting Results & Data Results & Data Vital Signs (Past 12 Hours) Vital Signs Temp Pulse Resp BP Pulse Ox O2 Del Method 04/20/25 00:36 88 15 176/107 H 100 04/20/25 00:03 87 19 182/122 H 100 04/19/25 23:51 93 H 23 187/119 H 91 04/19/25 23:12 97 H 175/125 H 04/19/25 23:11 92 H 13 175/125 H 92 Room Air 04/19/25 23:02 99 H 32 H 184/141 H 93 04/19/25 22:36 101 H 196/105 H 04/19/25 22:17 85 04/19/25 22:16 37 C 85 20 195/124 H 95 Room Air Laboratory Results Laboratory Results WBC 6.04 K/ul (4.8-10.8) 04/19/25 22:31 RBC 2.99 M/uL (4.70-6.10) L 04/19/25 22:31 Hgb 9.1 g/dl (14.0-18.0) L 04/19/25 22:31 Hct 26.3 % (42.0-52.0) L 04/19/25 22:31 MCV 88.0 fL (80.0-100.0) 04/19/25: MCH 30.4 pg (25.0-34.0) 04/19/25: MCHC 34.6 g/dL (32.0-36.0) 04/19/25: RDW Std Deviation 42.5 fL (36.4-46.3) 04/19/25: RDW Coeff of Juliana 13.2 % (11.5-14.5) 04/19/25: Plt Count 109 K/uL (130-400) L 04/19/25: MPV 11.8 fL (9.4-12.4) 04/19/25: Immature Gran % (Auto) 0.2 % 04/19/25: Neut % (Auto) 63.2 % 04/19/25: Lymph % (Auto) 25.0 % 04/19/25: Dare % (Auto) 6.6 % 04/19/25: Eos % (Auto) 3.3 % 04/19/25: Baso % (Auto) 1.7 % 04/19/25: Neut # (Auto) 3.82 K/uL (1.40-6.50) 04/19/25: Lymph # (Auto) 1.51 K/uL (1.20-3.40) 04/19/25: Dare # (Auto) 0.40 K/uL (0.11-0.59) 04/19/25: Eos # (Auto) 0.20 K/uL (0.00-0.50) 04/19/25: Baso # (Auto) 0.10 K/uL (0.00-0.20) 04/19/25: Immature Gran # (Auto) 0.01 K/uL (0.01-0.20) 04/19/25: Sodium 141 mmol/L (136-145) 04/19/25: Potassium 4.1 mmol/L (3.5-5.1) 04/19/25: Chloride 95 mmol/L (98-107) L 04/19/25: Carbon Dioxide 31 mmol/L (21-32) 04/19/25 22:31 Anion Gap 15 (3-11) H 04/19/25 22:31 BUN 40 mg/dl (6-23) H 04/19/25 22: Creatinine 10.18 mg/dl (0.6-1.4) H* 04/19/25 22:31 Est Cr Clr Drug Dosing Not Reportable 04/19/25 22: eGFR 6.82 04/19/25 22: BUN/Creatinine Ratio 3.9 (10-20) L 04/19/25 22: Glucose 92 mg/dl (70-99(Fasting)) 04/19/25 22: Calcium 9.2 mg/dl (8.6-10.3) 04/19/25 22: Magnesium 2.5 mg/dl (1.7-2.4) H 04/19/25 22: Total Bilirubin 0.8 mg/dl (0.2-1.0) 04/19/25 22: AST 15 U/L (13-39) 04/19/25 22: ALT 10 U/L (7-52) 04/19/25 22: Alkaline Phosphatase 60 U/L (34-104) 04/19/25 22: Troponin I High Sens 16.3 pg/ml (0-20) 04/19/25 22: Total Protein 5.7 gm/dl (6.0-8.3) L 04/19/25 22: Albumin 3.7 gm/dl (3.4-5.0) 04/19/25: Globulin 2.0 gm/dl (2.5-4.0) L 04/19/25 22: Albumin/Globulin Ratio 1.9 (0.9-2) 04/19/25 22: Lipase 26 U/L (11-82) 04/19/25 22: TSH 5.156 uIu/ml (0.300-4.500) H 04/19/25 22: Free T4 0.80 ng/dl (0.61-1.60) 04/19/25 22:[address] 04/20/25 00:56 EXAM: CT head/brain wo con CLINICAL HISTORY: Seizure TECHNIQUE: Axial non-contrast CT scan of the brain was performed from the skull base to the high parietal region with coronal and sagittal reformats. One of the following dose reduction techniques was utilized for this exam: Automated exposure control, adjustment of the mA and/or kV according to patient size, and use of iterative reconstruction. COMPARISON: CT dated 04/09/2025. FINDINGS: Brain Parenchyma: A hypodensity is seen in the right superior frontal region with poor differentiation of the overlying cortex. Subcortical hypodense areas in the superior parietal regions bilaterally, right occipital regions, and hypodense areas in the cerebellum, more evident on the left side. No evidence of acute hemorrhage or mass effect. Ventricular System: Ventricles are normal in size and configuration. No evidence of hydrocephalus or ventricular enlargement. Subarachnoid Spaces: Normal sulci and cisterns. No evidence of subarachnoid hemorrhage or extra-axial fluid collections. Cerebellum and Brainstem: Hypodense areas in the cerebellum, more evident on the left side. No masses, lesions, or areas of abnormal density in the brainstem. Orbits: Normal appearance of the globes, optic nerves, and extraocular muscles. No evidence of orbital masses or abnormal density. Sinuses: Clear paranasal sinuses. No evidence of sinusitis or mucosal thickening. Mastoid Air Cells: Clear mastoid air cells. No evidence of mastoiditis. Skull: Normal skull morphology. IMPRESSION: 1. A hypodensity is seen in the right superior frontal region with poor differentiation of the overlying cortex (New). 2. Subcortical hypodense areas in the superior parietal regions bilaterally, right occipital region, and hypodense areas in the cerebellum, more evident on the left side(new). Imaging appearances may represent posterior reversible encephalopathy syndrome (PRES). However, other possibilities cannot be excluded on this unenhanced CT. 3. Clinical correlation and further evaluation with an MRI brain, including DWI/ADC sequence, is suggested. Electronically signed by Chai Bonner 04-20-2025 02:54 AM Code Status & VTE Plan VTE Prophylaxis Plan VTE Prophylaxis will be ordered: Yes PG Care Time/CCT Total # of Minutes Spent Total Time Spent with Patient: Total time spent is greater than 50% in coordination of care (as documented) at patient's floor/unit and/or counseling patient: Coding Level of Care Code 61973 INT INP/OBS CARE 3/75MIN Diagnoses Seizure R56.9 PRES (posterior reversible encephalopathy syndrome) I67.83 ESRD on hemodialysis N18.6; Z99.2
--- NOTE | 2025-04-20 02:06 | Emergency Department Note ---
History of Present Illness General Chief complaint: Seizure Stated complaint: Seizure, Hypertension Time Seen by Provider: 04/19/25 22:13 History of Present Illness Maximum Pain Intensity: 10 This is a 20-year-old male presenting to the emergency department from home via EMS for evaluation of seizure episode this evening. Patient has an unfortunate medical history. He has end-stage renal disease on hemodialysis on Monday, , and Monday. Patient went to dialysis today and was not feeling well and discontinued dialysis early. He ultimately made it back to his home where he lives with his parents, and fell asleep on the couch. Mother came into the room after hearing something abnormal, and patient was seizing. This was roughly a 1 to 2-minute grand mal style seizure, and there was a postictal phase. Patient does have 1 previous seizure episode, which was earlier this month, and felt to be BP related with PRES. Patient has been having some difficulty managing his blood pressure and recently had a 0.1 mg increased dose on his clonidine. He continues with a mild persistent headache, and seems to be describing a scotoma of the left eye that has been persistent for some time. No recent fevers or chills. No chest pain, chest tightness, shortness of breath, or extremity pain is reported. Patient's overall discomfort is rated a 10/10. Home Medications Medication Instructions Recorded Confirmed Type hydroxyzine HCl 25 mg tablet 25 mg PO TID PRN anxiety #90 tabs 11/13/24 04/15/25 Rx amlodipine 10 mg tablet 10 mg PO QAM #90 tabs 01/29/25 04/20/25 Rx calcium acetate(phosphat bind) 667 1,334 mg (2 x 667 mg) PO TIDM 90 01/29/25 04/20/25 Rx mg capsule days #540 caps cholecalciferol (vitamin D3) 125 125 mcg PO QAM #90 tabs 01/29/25 04/20/25 Rx mcg (5,000 unit) tablet Medical Marijuana 1 dose PO DIRECTED PRN Other 03/14/25 04/15/25 History clonidine HCl 0.3 mg tablet 0.3 mg PO DAILY #30 tabs 04/06/25 04/15/25 Rx prochlorperazine maleate 10 mg 10 mg PO Q8H PRN nausea and 07/22/25 Rx tablet (Compazine) vomiting 5 days #15 tabs clonidine 0.3 mg/24 hr weekly 0.3 mg transdermal Q7D 04/17/25 04/20/25 History transdermal patch ketoconazole 2 % topical cream 1 applic topical .every other day 04/17/25 04/20/25 History PRN Rash labetalol 200 mg tablet 400 mg PO BID 04/17/25 04/20/25 History losartan 50 mg tablet 50 mg PO BID 04/17/25 04/20/25 History minoxidil 2.5 mg tablet 5 mg (2 x 2.5 mg) PO DAILY #30 tabs 04/17/25 04/17/25 Rx sertraline 25 mg tablet 25 mg PO DAILY #30 tabs 04/17/25 04/20/25 Rx torsemide 20 mg tablet 40 mg PO BID 04/17/25 04/20/25 History Allergies Allergy/AdvReac Type Severity Reaction Status Date / Time No Known Allergies Allergy Unknown Verified 04/17/25 11:25 Past Med/Surg History Problem List (Updated 04/20/25 @ 06:32 by Darius Martínez PA-C) Seizure Anxiety Hyperkalemia Nausea & vomiting (Acute) Carious teeth Impacted teeth with abnormal position ESRD on hemodialysis (Acute) Headache (Acute) Hypertension (Acute) Headache PRES (posterior reversible encephalopathy syndrome) End stage renal disease (Acute) Hypertensive emergency (Acute) New onset seizure (Acute) Medical History Hx of metabolic acidosis Anticoagulated on Coumadin pt states he has not been taking his Coumadin since apprx mid January 2025 Dialysis patient [facility] in [place] > //mon History of postoperative nausea and vomiting Hx of deep venous thrombosis 01/2024 > right arm > was on warfarin > now DC'ed Cardiac murmur Anemia FSGS (focal segmental glomerulosclerosis) Generalized anxiety disorder Thrombophilia End stage renal disease follows with Dr. Woods - HD 3x per week:[facility] in [place] > //mon CKD (chronic kidney disease) Hypertension recently added clonidine 0.[address] woods Surgical History S/P hemodialysis catheter insertion (12/2024) perm cath for HD- right jugular S/P left knee arthroscopy H/O hernia repair Family History Mother Diabetes Grandfather (Maternal) Hypertension Other No family history of adverse response to anesthesia Denies family history of Ovarian cancer Prostate cancer Myocardial infarction Breast cancer Lung cancer Stroke Social History Smoking Status: Never smoker Tobacco Type: Smokeless Tobacco (Dip or Chew) Second Hand Exposure: No; Do You Dip or Chew Tobacco: No; Tobacco Cessation Education Requested by Patient: No Hx Alcohol Use: No Hx Substance Use: No Preferred Language: Georgian Communication Ability: Effective Visual Impairment: No Limitations Hearing Ability: Normal Clip Loading Machine Adjuster Required: No Beliefs That Will Affect Care: None marital status: Single Current Living Situation: Parent Current Living Situation Comment: lives at home with family current occupational status: employed 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 [employer] How many Children do You have: 0 Other Information That Helps Us Care for You: No Feels Safe at Home: Yes Childhood Exposure to Second-Hand Smoke: No caffeine: No Dental Care, Regularly: Yes Physical Activity Frequency: 5-6 Times per Week Seatbelt Use: always Sunscreen Use: No Assistive Devices: None Review of Systems A total of 10 systems reviewed and were otherwise negative Physical Exam Vital Signs Vital Signs - 24 hr 04/19/25 22:16 04/19/25 22:17 04/19/25 22:36 Temperature 37 C Temperature Source Oral Pulse Rate 85 85 101 H Pulse Rate from SpO2 Sensor Respiratory Rate 20 Blood Pressure 195/124 H 196/105 H Blood Pressure Mean 147 Pulse Oximetry 95 Oxygen Delivery Method Room Air Sepsis Recent Fever Within 48 Hours No Sepsis New/Unexplained Change in Mental Status No Sepsis Action Taken by Nursing No Action Required 04/19/25 23:02 04/19/25 23:11 04/19/25 23:12 Temperature Temperature Source Pulse Rate 99 H 92 H 97 H Pulse Rate from SpO2 Sensor Respiratory Rate 32 H 13 Blood Pressure 184/141 H 175/125 H 175/125 H Blood Pressure Mean 155 141 Pulse Oximetry 93 92 Oxygen Delivery Method Room Air Sepsis Recent Fever Within 48 Hours Sepsis New/Unexplained Change in Mental Status Sepsis Action Taken by Nursing 04/19/25 23:51 04/20/25 00:03 04/20/25 00:36 Temperature Temperature Source Pulse Rate 93 H 87 88 Pulse Rate from SpO2 Sensor 95 H Respiratory Rate 23 19 15 Blood Pressure 187/119 H 182/122 H 176/107 H Blood Pressure Mean 141 142 130 Pulse Oximetry 91 100 100 Oxygen Delivery Method Sepsis Recent Fever Within 48 Hours Sepsis New/Unexplained Change in Mental Status Sepsis Action Taken by Nursing VITALS: Vitals are noted on the nurse's note and reviewed by myself. Vital signs with elevated blood pressure. GENERAL: White male who is uncomfortable appearing in the ER bed. He is overall cooperative and pleasant. HEAD: Normocephalic atraumatic. MOUTH: Mucous membranes moist. Pharynx without erythema, blood, or exudate. Uvula midline. Airway patent. NECK: Supple without nuchal rigidity. No lymphadenopathy. No thyromegaly. Cervical spine is nontender. HEART: Regular rate and rhythm without murmurs gallops or rubs. LUNGS: Clear to auscultation bilaterally without wheezes, rales or rhonchi. No retractions or accessory muscle use. ABDOMEN: Positive normal bowel sounds x 4. Soft, nontender, without masses or organomegaly. No guarding or rebound tenderness. MUSCULOSKELETAL: No muscle atrophy, erythema, or edema noted. Full range of motion in all extremities. No tenderness to palpation. NEURO: Patient was alert and oriented to person place and time. CN II through XII grossly intact. No focal neurological deficits. GCS 15. SKIN: The skin was without rashes, erythema, edema, or bruising. Capillary refill less than 2 seconds. Course Administered Medications Acetaminophen (Acetaminophen 325 Mg Tab) 650 mg PO Q4H PRN PRN Reason: Pain or Fever Stop: 05/20/25 01:57 Last Admin: 04/20/25 04:50 Dose: 650 mg Documented By: NRS Discontinued Medications Hydralazine HCl (Hydralazine Hcl 20 Mg/Ml Vial) 10 mg IV Q4H PRN PRN Reason: BP>190/110-1st line(alternate) Stop: 05/20/25 02:09 Last Admin: 04/20/25 02:28 Dose: 10 mg Documented By: NRS Sodium Chloride (Nss) 1,000 mls @ 999 mls/hr IV .Q1H1M ONE Stop: 04/19/25 23:31 Last Infusion: 04/19/25 23:56 Dose: Infused Documented By: Admin: 04/19/25 22:34 Dose: 999 mls/hr Documented By: DAT Labetalol HCl (Labetalol Hcl Iv 5 Mg/Ml 20ml) 10 mg IV NOW STA Stop: 04/19/25 22:32 Last Admin: 04/19/25 22:36 Dose: 10 mg Documented By: DAT Levetiracetam (Levetiracetam 500 Mg/5 Ml Vial) 1,700 mg 20 mg/kg (1700 mg) IV NOW STA Stop: 04/19/25 22:31 Last Admin: 04/19/25 22:35 Dose: 1,700 mg Documented By: DAT Lorazepam (Lorazepam 2 Mg/1 Ml Vial) Confirm Administered Dose 2 mg .ROUTE .STK- MED ONE Stop: 04/19/25 22:30 Last Admin: 04/19/25 22:32 Dose: Not Given Documented By: DAT Lorazepam (Lorazepam 2 Mg/1 Ml Vial) 2 mg IV NOW STA Stop: 04/19/25 22:29 Last Admin: 04/19/25 22:32 Dose: 2 mg Documented By: DAT Lorazepam (Lorazepam 2 Mg/1 Ml Vial) 2 mg IV NOW STA Stop: 04/19/25 22:33 Last Admin: 04/20/25 01:48 Dose: Not Given Documented By: BRIE Morphine Sulfate (Morphine Sulfate 4 Mg/Ml 1 Ml Carp\Vial) 4 mg IV Q30M PRN PRN Reason: Pain Stop: 05/03/25 23:31 Last Admin: 04/19/25 23:43 Dose: 4 mg Documented By: BRIE Ondansetron HCl (Ondansetron Inj 2 Mg/Ml 2 Ml Vial) Confirm Administered Dose 4 mg .ROUTE .STK-MED ONE Stop: 04/19/25 23:52 Last Admin: 04/19/25 23:58 Dose: Not Given Documented By: BRIE Ondansetron HCl (Ondansetron Inj 2 Mg/Ml 2 Ml Vial) 4 mg IV NOW STA Stop: 04/19/25 23:58 Last Admin: 04/19/25 23:57 Dose: 4 mg Documented By: BRIE Critical Care Time I have personally spent greater than 47 minutes of critical care time in the direct management of this patient. This includes bedside care, interpretation of diagnostic studies, and testing, discussion with consultants, patient, and family members, and other required patient management activities. This 47 minutes is in excess of all separately billable procedures. Medical Decision Making Differential Diagnosis Differential diagnosis: Etiologies such as seizure, vasovagal event, infection, anemia, hypoglycemia, hypovolemia, electrolyte abnormalities, dysrhythmias, cardiac ischemia, cardiac tamponade, valvular heart disease, structural heart disease, seizure, vascular stenosis/dissection, pulmonary embolism, intracerebral event, toxicological process, neurologic event, as well as others were entertained. Laboratory Data 04/19/25 22:31 04/19/25 22:31 Lab Results 04/19/25 Range/Units 22:31 WBC 6.04 (4.8-10.8) K/ul RBC 2.99 L (4.70-6.10) M/uL Hgb 9.1 L (14.0-18.0) g/dl Hct 26.3 L (42.0-52.0) % MCV 88.0 (80.0-100.0) fL MCH 30.4 (25.0-34.0) pg MCHC 34.6 (32.0-36.0) g/dL RDW Std Deviation 42.5 (36.4-46.3) fL RDW Coeff of Juliana 13.2 (11.5-14.5) % Plt Count 109 L (130-400) K/uL MPV 11.8 (9.4-12.4) fL Immature Gran % (Auto) 0.2 % Neut % (Auto) 63.2 % Lymph % (Auto) 25.0 % [place] % (Auto) 6.6 % Eos % (Auto) 3.3 % Baso % (Auto) 1.7 % Neut # (Auto) 3.82 (1.40-6.50) K/uL Lymph # (Auto) 1.51 (1.20-3.40) K/uL [place] # (Auto) 0.40 (0.11-0.59) K/uL Eos # (Auto) 0.20 (0.00-0.50) K/uL Baso # (Auto) 0.10 (0.00-0.20) K/uL Immature Gran # (Auto) 0.01 (0.01-0.20) K/uL Sodium 141 (136-145) mmol/L Potassium 4.1 (3.5-5.1) mmol/L Chloride 95 L (98-107) mmol/L Carbon Dioxide 31 (21-32) mmol/L Anion Gap 15 H (3-11) BUN 40 H (6-23) mg/dl Creatinine 10.18 H* (0.6-1.4) mg/dl Est Cr Clr Drug Dosing Not Reportable eGFR 6.82 BUN/Creatinine Ratio 3.9 L (10-20) Glucose 92 (70-99(Fasting)) mg/dl Calcium 9.2 (8.6-10.3) mg/dl Magnesium 2.5 H (1.7-2.4) mg/dl Total Bilirubin 0.8 (0.2-1.0) mg/dl AST 15 (13-39) U/L ALT 10 (7-52) U/L Alkaline Phosphatase 60 (34-104) U/L Troponin I High Sens 16.3 (0-20) pg/ml Total Protein 5.7 L (6.0-8.3) gm/dl Albumin 3.7 (3.4-5.0) gm/dl Globulin 2.0 L (2.5-4.0) gm/dl Albumin/Globulin Ratio 1.9 (0.9-2) Lipase 26 (11-82) U/L TSH 5.156 H (0.300-4.500) uIu/ml Free T4 0.80 (0.61-1.60) ng/dl MDM Narrative Physical exam and history were performed. Nursing notes, EMR, and Medication List were personally reviewed. No social concerns were identified as barriers to patients care. History was provided by the Patient, EMS, and family at bedside. Patient appears to have had a seizure episode. He has a fairly unfortunate medical history with chronic illness. IV access was established and labs were obtained. He was cared for under seizure precautions. Prior to results of blood work, I was informed by nursing the patient was actively seizing here in the ER. Patient is having a tonic-clonic seizure. Airway was protected by nursing, and patient is without emesis. He was given IV Ativan and IV Keppra here in the ER. Patient remains hypertensive and was given IV labetalol. Case was discussed with my attending, Dr. Louise, who remained involved in care and decision making. Ultimately patient's blood work is as above and was reviewed. He does not have a significant elevated white blood cell count, gross anemia, bandemia, or significant electrolyte imbalance. Creatinine is elevated over 10, however he is a dialysis patient. TSH is euthyroid. Remaining labs are essentially unremarkable. Escalation of care was considered, and necessary. The patient has had 2 seizures today. It is unclear of the etiology of the seizures. After recovery from the seizure the patient had worsening headache, and was given IV morphine and IV Zofran. Case was discussed with the on-call hospitalist team, who did agree to evaluate the patient here in the ER. Please see their dictation for further patient course, plan, disposition. The chart was completed utilizing [employer] Speech Voice Recognition Software. Grammatical errors, random word insertions, pronoun errors, and incomplete sentences are an occasional consequence of this system due to software limitations, ambient noise, and hardware issues. Any formal questions or concerns about the content, text, or information contained within the body of this dictation should be directly addressed to the provider for clarification. Impression & Plan New onset seizure, Hypertensive emergency, End stage renal disease Discharge Plan Visit Data Chief Complaint: Seizure Stated Complaint: Seizure, Hypertension ED Provider: Glynn Louise ED Midlevel Provider: Darius Martínez Discharge Problem: New onset seizure, Hypertensive emergency, End stage renal disease Patient Disposition: Admitted As Inpatient Condition: Fair Discharge Instructions Interventions: ED Discharge Assessment Last Done: 04/20/25 01:35
[2025-04-20] MEDS ORDERED: LABETALOL HCL IV 5 MG/ML 20ML IV PRN (02:10)
--- NOTE | 2025-04-20 02:55 | CT Scan Report ---
EXAM: CT head/brain wo con CLINICAL HISTORY: Seizure TECHNIQUE: Axial non-contrast CT scan of the brain was performed from the skull base to the high parietal region with coronal and sagittal reformats. One of the following dose reduction techniques was utilized for this exam: Automated exposure control, adjustment of the mA and/or kV according to patient size, and use of iterative reconstruction. COMPARISON: CT dated 04/09/2025. FINDINGS: Brain Parenchyma: A hypodensity is seen in the right superior frontal region with poor differentiation of the overlying cortex. Subcortical hypodense areas in the superior parietal regions bilaterally, right occipital regions, and hypodense areas in the cerebellum, more evident on the left side. No evidence of acute hemorrhage or mass effect. Ventricular System: Ventricles are normal in size and configuration. No evidence of hydrocephalus or ventricular enlargement. Subarachnoid Spaces: Normal sulci and cisterns. No evidence of subarachnoid hemorrhage or extra-axial fluid collections. Cerebellum and Brainstem: Hypodense areas in the cerebellum, more evident on the left side. No masses, lesions, or areas of abnormal density in the brainstem. Orbits: Normal appearance of the globes, optic nerves, and extraocular muscles. No evidence of orbital masses or abnormal density. Sinuses: Clear paranasal sinuses. No evidence of sinusitis or mucosal thickening. Mastoid Air Cells: Clear mastoid air cells. No evidence of mastoiditis. Skull: Normal skull morphology. IMPRESSION: 1. A hypodensity is seen in the right superior frontal region with poor differentiation of the overlying cortex (New). 2. Subcortical hypodense areas in the superior parietal regions bilaterally, right occipital region, and hypodense areas in the cerebellum, more evident on the left side(new). Imaging appearances may represent posterior reversible encephalopathy syndrome (PRES). However, other possibilities cannot be excluded on this unenhanced CT. 3. Clinical correlation and further evaluation with an MRI brain, including DWI/ADC sequence, is suggested. Electronically signed by Chai Bonner 04-20-2025 02:54 AM
[2025-04-20] MEDS: ACETAMINOPHEN 325 MG TAB PO PRN (04:50)
--- NOTE | 2025-04-20 06:57 | Electrocardiogram Report ---
Test Reason : Blood Pressure : */* mmHG Vent. Rate : 88 BPM Atrial Rate : 88 BPM P-R Int : 144 ms QRS Dur : 96 ms QT Int : 410 ms P-R-T Axes : 67 67 53 degrees QTcB Int : 496 ms Normal sinus rhythm Possible Left atrial enlargement Prolonged QT Abnormal ECG When compared with ECG of 15-Apr-2025 11:24, QT has lengthened Confirmed by Robert Ritter ([id number]) on 04/20/2025 6:56:51 AM Referred By: REFERRED SELF Confirmed By: Robert Ritter
[2025-04-20] MEDS: HEPARIN SOD 5,000 UNIT/0.5 ML VIAL SQ SCH (07:32)
[2025-04-20] MEDS: LABETALOL HCL IV 5 MG/ML 20ML IV PRN (07:33)
[2025-04-20] MEDS: CHECK CLONIDINE PATCH PLACEMENT SCH (08:18)
[2025-04-20] MEDS: SERTRALINE HCL 50 MG TABLET PO SCH (08:19)
[2025-04-20] MEDS: CALCIUM ACETATE 667 MG CAP/TAB PO SCH (08:19)
[2025-04-20] MEDS: TORSEMIDE 20 MG TAB PO SCH (08:20)
[2025-04-20] MEDS: CHOLECALCIFEROL 125 MCG (5,000 UNITS) TAB PO SCH (08:20)
[2025-04-20] MEDS: LOSARTAN POTASSIUM 50 MG TAB PO SCH (08:20)
[2025-04-20] MEDS: LABETALOL HCL 200 MG TAB PO SCH ×2 (08:25→15:57)
--- NOTE | 2025-04-20 10:13 | Hospitalist Progress Note ---
Date of Service April 20, 2025 Assessment & Plan (1) Seizure: (2) PRES (posterior reversible encephalopathy syndrome): (3) ESRD on hemodialysis: (4) Intractable headache: (5) Severe uncontrolled hypertension: Plan Kvng Ramos is a 20yo male presenting with two witnessed seizures. 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 He had a seizure during a prior admission - thought to be secondary to PRES. He was briefly on Keppra but then was discontinued. He is working with his Pan Helper to control his blood pressure. #PRES syndrome with seizure prior to last admission and recurrent seizures #Severe uncontrolled hypertension -Maintain seizure precautions -Check EEG - will be tomorrow -Reviewed MRI Brain - consistent with PRES, also there is a small area right frontoparietal junction that could be small acute or subacute infarct vs post seizure restricted diffusion -Ativan PRN seizure activity -Resume/continue IV keppra - discussed dosing with pharmacist -Gradual lowering of blood pressure -Clonidine patch 0.3mg daily - this was just increased -Labetalol increased by sumac tanner today -Losartan 50mg po BID -Amlodipine 10mg po daily -Torsemide 40mg po BID -Hydralazine 10mg IV q 4 hours PRN SBP >170 -Labetalol 10mg IV q 4 hours as needed for SBP > 170 -blood pressure is better controlled today Metanephrines ordered by sumac tanner - pending Recent renal artery duplex negative for FLORA No evidence of volume overload on exam, gets good UF with dialysis # Intractable headache - bifrontal and has had some spots with vision disturbance -may be related to uncontrolled hypertension and PRES - oral meds were ineffective so ordered low dose hydromorphone IV 0.25-0.5 mg, increased to 0.5-1 mg this afternoon -consider migraine - triptan inadvisable right now with MRI findings and uncontrolled HTN. Tried valproate 500 mg IV x 1 but did not resolve headache -no evidence of ICH on imaging #ESRD secondary to FSGS on HD, anemia of CKD -Continue Phoslo -AM CBC BMP mag phos -Nephrology consultation appreciated -dialysis access - currently has tunneled HD line, states working well. planned for AVF soon - contact Dr. Pacheco tomorrow to let him know about hospitalization. #Hepatosplenomegaly and cardiomegaly - based on CT report. May be over-call however, consider infiltrative diseases which can present like FSGS according to literature review. Discussed with Dr. Bonner. -SPEP and ifix from past labs reviewed. 09/2023 pattern consistent with bisalbuminemia or pancreas disease, faint M-spike. Negative immunofixation in 2022 -kappa/lambda light chains pending -recent ferritin and transferrin saturation not elevated, not c/w hemachromotosis -consider amyloidosis or sarcoidosis -EKGs without LVH. consider TTE #Anxiety/Depression -Continue Sertraline 25mg po daily I updated his mother in the room Admission and Anticipated Discharge Date Admission Date: April 20, 2025 Subjective Severe headache this AM, unrelieved by tylenol and oxycodone Reports last admission low dose of hydromorphone was effective Most recent BP improved compared to past 24h Physical Exam 2 Physical Exam: Last 24h vitals reviewed GEN: lying on side awake with eye mask, uncomfortable appearing HEENT: pupils equal, sclerae anicteric, moist MM RESP: normal WOB CV: ABD: ND : no conley SKIN: warm and dry, no generalized rashes NEURO: AOx person, place, and situation. Face symmetric, speech normal, moves 4 ext spontaneously and equally Results & Data Results & Data Vital Signs (Past 12 Hours) Vital Signs Temp Pulse Pulse Pulse Resp BP BP 04/20/25 09:36 04/20/25 08:27 80 200/113 H 04/20/25 08:24 80 04/20/25 07:37 36.6 C 95 H 16 04/20/25 03:40 169/91 H 04/20/25 02:48 182/101 H 04/20/25 02:28 205/115 H 04/20/25 02:00 91 H 04/20/25 02:00 36.4 C L 20 208/128 H 04/20/25 01:35 74 18 172/101 H 04/20/25 00:36 88 15 176/107 H 04/20/25 00:03 87 19 182/122 H 04/19/25 23:51 93 H 23 187/119 H 04/19/25 23:12 97 H 175/125 H 04/19/25 23:11 92 H 13 175/125 H 04/19/25 23:02 99 H 32 H 184/141 H 04/19/25 22:36 101 H 196/105 H 04/19/25 22:17 85 04/19/25 22:16 37 C 85 20 195/124 H BP Pulse Ox O2 Del Method 04/20/25 09:36 179/106 H 04/20/25 08:27 04/20/25 08:24 200/113 H 93 Room Air 04/20/25 07:37 185/100 H 94 Room Air 04/20/25 03:40 04/20/25 02:48 04/20/25 02:28 04/20/25 02:00 04/20/25 02:00 93 Room Air 04/20/25 01:35 99 Room Air 04/20/25 00:36 100 04/20/25 00:03 100 04/19/25 23:51 91 04/19/25 23:12 04/19/25 23:11 92 Room Air 04/19/25 23:02 93 04/19/25 22:36 04/19/25 22:17 04/19/25 22:16 95 Room Air Laboratory Results 04/19/25 22:31 04/19/25 22:31 PG Care Time/CCT Total # of Minutes Spent Total Time Spent with Patient: Total time spent is greater than 50% in coordination of care (as documented) at patient's floor/unit and/or counseling patient: Coding Level of Care Code None Diagnoses Seizure R56.9 PRES (posterior reversible encephalopathy syndrome) I67.83 ESRD on hemodialysis N18.6; Z99.2 Intractable headache R51.9 Severe uncontrolled hypertension I10
[2025-04-20] MEDS: HYDROmorphone INJ 0.5 MG/0.5 ML SYR IV PRN ×3 (10:23→19:41)
--- NOTE | 2025-04-20 11:31 | Nephrology Consultation ---
Date of Consultation April 20, 2025 Assessment & Plan (1) ESRD on hemodialysis: * Patient was last dialyzed yesterday. He presented w/ HTN but was only 1.3 kg above his EDW. HD was terminated after 2.5 hours at patient request due to JUAREZ. At home he suffered tonic-clonic seizure * Patient appears clinically euvolemic. Electrolyte balance is acceptable. No acute indication for HD today * Outpatient HD Rx: TTS 3.75 Fx CorAL80 BFR 400/QD800 2K 2Ca 1Mg Na140 HCO3 40 EDW 77.5 kg * Monitor BMP, I&O. Monitor wt but question accuracy (2) Hypertensive emergency: * Patient reports adherence to prescribed antihypertensive therapy * Resting HR remains elevated. Will increase labetalol to 800 mg TID * Monitor BP, HR, LFT * 04/04/25 fractionated plasma catecholamines were low. Will repeat study * Patient appears euthyroid, has no vascular bruit. 04/08/25 renal doppler was negative for FLORA * Repeat urine free kappa/lambda light chain ratio (3) PRES (posterior reversible encephalopathy syndrome): * BP control, anticonvulsant therapy History of Present Illness Reason for Consultation: ESKD-D, refractory HTN, PRES Attending Physician: Alanna Felix MD History of Present Illness Mr. Ramos is a 20-year-old white male who is seen at the request of the [facility] hospitalist service for ESKD-D, refractory HTN, PRES. Information for the HPI is obtained from direct patient interview and review of the EMR. HPI summarized as follows: Mr. Ramos was found to have proteinuria as a child. At age 7 he underwent huslia kidney biopsy that was interpreted as TIARA. In 2021 he was found to have progressive hypertension and worsening proteinuria. He developed nephrotic syndrome and on 10/04/2023 underwent a second huslia kidney biopsy. 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 Rituximab therapy was discussed but declined. Mr. Ramos attempted to manage his condition with dietary modification. Unfortunately by 01/18/2025 serum Cr was > 19.20 w/ BUN 140. He had progressed to ESKD. R IJ TCC was placed by Dr. Pacheco 01/21/2025 and HD was started. Mr. Ramos now dialyzes at [facility] under the care of Dr. Woods (TTS 3.75 Fx CorAL80 BFR 400/QD800 2K 2Ca 1Mg Na140 HCO3 40 EDW 77.5 kg). Mr. Ramos was ho spitalized 04/01/25-04/06/25 due to hypertensive emergency, PRES and new onset tonic-clonic seizures. He was briefly on Keppra therapy. During his hospitalization he underwent aggressive ultrafiltration with removal of approximately 9 L volume. Despite this blood pressure remained difficult to control. Oral medical regimen was changed to losartan 50 mg BID, amlodipine 10 mg qAM, labetalol 400 mg BID, torsemide 40 mg BID and Catapress TTS-3. Mr. Ramos reports that he still makes urine. Minoxidil was ordered as an outpatient but Mr. Ramos has not yet obtained this medication. 04/04/25 fra ctionated plasma catecholamines were low. Mr. Ramos was last dialyzed yesterday. Pre-dialysis SBP was > 200 mm Hg. He felt poorly during the treatment due to JUAREZ. After only 2.5 hours of treatment he requested to be taken off. Recorded blood pressures during his treatment were 181/98-203/135 mmHg w/ pulse 88-93 bpm. IDWG was only 1.3 kg. Upon returning home Mr. Ramos suffered a tonic clonic seizure and was brought to the [facility] for evaluation. Allergies Allergy/AdvReac Type Severity Reaction Status Date / Time No Known Allergies Allergy Unknown Verified 04/17/25 11:25 Home Medications Medication Instructions Recorded Confirmed Type hydroxyzine HCl 25 mg tablet 25 mg PO TID PRN anxiety #90 tabs 11/13/24 04/15/25 Rx amlodipine 10 mg tablet 10 mg PO QAM #90 tabs 01/29/25 04/20/25 Rx calcium acetate(phosphat bind) 667 1,334 mg (2 x 667 mg) PO TIDM 90 01/29/25 04/20/25 Rx mg capsule days #540 caps cholecalciferol (vitamin D3) 125 125 mcg PO QAM #90 tabs 01/29/25 04/20/25 Rx mcg (5,000 unit) tablet Medical Marijuana 1 dose PO DIRECTED PRN Other 03/14/25 04/15/25 History clonidine HCl 0.3 mg tablet 0.3 mg PO DAILY #30 tabs 04/06/25 04/15/25 Rx prochlorperazine maleate 10 mg 10 mg PO Q8H PRN nausea and 04/15/25 Rx tablet (Compazine) vomiting 5 days #15 tabs clonidine 0.3 mg/24 hr weekly 0.3 mg transdermal Q7D 04/17/25 04/20/25 History transdermal patch ketoconazole 2 % topical cream 1 applic topical .every other day 04/17/25 04/20/25 History PRN Rash labetalol 200 mg tablet 400 mg PO BID 04/17/25 04/20/25 History losartan 50 mg tablet 50 mg PO BID 04/17/25 04/20/25 History minoxidil 2.5 mg tablet 5 mg (2 x 2.5 mg) PO DAILY #30 tabs 04/17/25 04/17/25 Rx sertraline 25 mg tablet 25 mg PO DAILY #30 tabs 04/17/25 04/20/25 Rx torsemide 20 mg tablet 40 mg PO BID 04/17/25 04/20/25 History Patient History Medical History Hx of metabolic acidosis Anticoagulated on Coumadin pt states he has not been taking his Coumadin since apprx mid January 2025 Dialysis patient [facility] in [place] > tues/thurs/sat History of postoperative nausea and vomiting Hx of deep venous thrombosis 01/2024 > right arm > was on warfarin > now DC'ed Cardiac murmur Anemia FSGS (focal segmental glomerulosclerosis) Generalized anxiety disorder Thrombophilia End stage renal disease follows with Dr. Woods - HD 3x per week:[facility] in [place] > tues/thurs/sat CKD (chronic kidney disease) Hypertension recently added clonidine 0.[address] woods Surgical History S/P hemodialysis catheter insertion (12/2024) perm cath for HD- right jugular S/P left knee arthroscopy H/O hernia repair Family History Mother Diabetes Grandfather (Maternal) Hypertension Other No family history of adverse response to anesthesia Denies family history of Ovarian cancer Prostate cancer Myocardial infarction Breast cancer Lung cancer Stroke Social History Smoking Status: Never smoker Tobacco Type: Smokeless Tobacco (Dip or Chew) Second Hand Exposure: No; Do You Dip or Chew Tobacco: No; Tobacco Cessation Education Requested by Patient: No Hx Alcohol Use: No Hx Substance Use: No Preferred Language: [place] Island[place] Communication Ability: Effective Visual Impairment: No Limitations Hearing Ability: Normal Applied Statistician Required: No Beliefs That Will Affect Care: None marital status: Single Current Living Situation: Parent Current Living Situation Comment: lives at home with family current occupational status: employed 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 How many Children do You have: 0 Other Information That Helps Us Care for You: No Feels Safe at Home: Yes Childhood Exposure to Second-Hand Smoke: No caffeine: No Dental Care, Regularly: Yes Physical Activity Frequency: 5-6 Times per Week Seatbelt Use: always Sunscreen Use: No Assistive Devices: None Review of Systems Constitutional: no fever Eyes: no problem reported Ear, Nose, Mouth, Throat: no problem reported Respiratory: no cough and no dyspnea Cardiovascular: no chest pain and no edema Gastrointestinal: no abdominal pain, no nausea, no vomiting and no diarrhea/loose stools Genitourinary: no difficulty urinating Integumentary: no rash Neurologic: + seizure-like activity and + headache(s ) Physical Exam Constitutional: + in distress (Headache) Eyes: PERRL, conjunctivae normal, anicteric sclerae ENMT: external ear and nose normal, oropharynx normal Neck: trachea midline, no thyromegaly (R IJ TCC with clean dry dressing in place) Respiratory: normal respiratory effort, lungs clear to auscultation Cardiovascular: RRR, no murmur, no edema Gastrointestinal (Abdomen): normal bowel sounds, soft, nontender, no hepatosplenomegaly Musculoskeletal: Extremities: no cyanosis and no clubbing Skin: no rashes, warm and dry Neurologic: no focal motor deficits Results & Data Vital Signs (Past 12 Hours) Vital Signs Temp Pulse Pulse Pulse Resp BP BP 04/20/25 09:36 04/20/25 08:27 80 200/113 H 04/20/25 08:24 80 04/20/25 08:00 93 H 04/20/25 07:37 36.6 C 95 H 16 04/20/25 03:40 169/91 H 04/20/25 02:48 182/101 H 04/20/25 02:28 205/115 H 04/20/25 02:00 91 H 04/20/25 02:00 36.4 C L 20 208/128 H 04/20/25 01:35 74 18 172/101 H 04/20/25 00:36 88 15 176/107 H 04/20/25 00:03 87 19 182/122 H 04/19/25 23:51 93 H 23 187/119 H BP Pulse Ox O2 Del Method 04/20/25 09:36 179/106 H 04/20/25 08:27 04/20/25 08:24 200/113 H 93 Room Air 04/20/25 08:00 04/20/25 07:37 185/100 H 94 Room Air 04/20/25 03:40 04/20/25 02:48 04/20/25 02:28 04/20/25 02:00 04/20/25 02:00 93 Room Air 04/20/25 01:35 99 Room Air 04/20/25 00:36 100 04/20/25 00:03 100 04/19/25 23:51 91 Laboratory Results Laboratory Results WBC 6.04 K/ul (4.8-10.8) 04/19/25 22: RBC 2.99 M/uL (4.70-6.10) L 04/19/25 22:31 Hgb 9.1 g/dl (14.0-18.0) L 04/19/25 22:31 Hct 26.3 % (42.0-52.0) L 04/19/25 22: MCV 88.0 fL (80.0-100.0) 04/19/25 22: MCH 30.4 pg (25.0-34.0) 04/19/25 22: MCHC 34.6 g/dL (32.0-36.0) 04/19/25 22: RDW Std Deviation 42.5 fL (36.4-46.3) 04/19/25 22: RDW Coeff of Juliana 13.2 % (11.5-14.5) 04/19/25 22:31 Plt Count 109 K/uL (130-400) L 04/19/25 22:31 MPV 11.8 fL (9.4-12.4) 04/19/25 22: Immature Gran % (Auto) 0.2 % 04/19/25 22: Neut % (Auto) 63.2 % 04/19/25 22: Lymph % (Auto) 25.0 % 04/19/25 22: [place] % (Auto) 6.6 % 04/19/25: Eos % (Auto) 3.3 % 04/19/25: Baso % (Auto) 1.7 % 04/19/25: Neut # (Auto) 3.82 K/uL (1.40-6.50) 04/19/25 22: Lymph # (Auto) 1.51 K/uL (1.20-3.40) 04/19/25: [place] # (Auto) 0.40 K/uL (0.11-0.59) 04/19/25: Eos # (Auto) 0.20 K/uL (0.00-0.50) 04/19/25: Baso # (Auto) 0.10 K/uL (0.00-0.20) 04/19/25 22: Immature Gran # (Auto) 0.01 K/uL (0.01-0.20) 04/19/25 22:31 Sodium 141 mmol/L (136-145) 04/19/25 22: Potassium 4.1 mmol/L (3.5-5.1) 04/19/25 22: Chloride 95 mmol/L (98-107) L 04/19/25 22: Carbon Dioxide 31 mmol/L (21-32) 04/19/25 22: Anion Gap 15 (3-11) H 04/19/25 22: BUN 40 mg/dl (6-23) H 04/19/25 22: Creatinine 10.18 mg/dl (0.6-1.4) H* 04/19/25 22: Est Cr Clr Drug Dosing Not Reportable 04/19/25 22: eGFR 6.82 04/19/25 22: BUN/Creatinine Ratio 3.9 (10-20) L 04/19/25 22: Glucose 92 mg/dl (70-99(Fasting)) 04/19/25 22: Calcium 9.2 mg/dl (8.6-10.3) 04/19/25 22: Magnesium 2.5 mg/dl (1.7-2.4) H 04/19/25 22: Total Bilirubin 0.8 mg/dl (0.2-1.0) 04/19/25 22:31 AST 15 U/L (13-39) 04/19/25 22: ALT 10 U/L (7-52) 04/19/25 22: Alkaline Phosphatase 60 U/L (34-104) 04/19/25 22: Troponin I High Sens 16.3 pg/ml (0-20) 04/19/25 22: Total Protein 5.7 gm/dl (6.0-8.3) L 04/19/25 22: Albumin 3.7 gm/dl (3.4-5.0) 04/19/25: Globulin 2.0 gm/dl (2.5-4.0) L 04/19/25: Albumin/Globulin Ratio 1.9 (0.9-2) 04/19/25: Lipase 26 U/L (11-82) 04/19/25 22: TSH 5.156 uIu/ml (0.300-4.500) H 04/19/25 22: Free T4 0.80 ng/dl (0.61-1.60) 04/19/25 22:[address] 04/20/25 00:56 EXAM: CT head/brain wo con CLINICAL HISTORY: Seizure TECHNIQUE: Axial non-contrast CT scan of the brain was performed from the skull base to the high parietal region with coronal and sagittal reformats. One of the following dose reduction techniques was utilized for this exam: Automated exposure control, adjustment of the mA and/or kV according to patient size, and use of iterative reconstruction. COMPARISON: CT dated 04/09/2025. FINDINGS: Brain Parenchyma: A hypodensity is seen in the right superior frontal region with poor differentiation of the overlying cortex. Subcortical hypodense areas in the superior parietal regions bilaterally, right occipital regions, and hypodense areas in the cerebellum, more evident on the left side. No evidence of acute hemorrhage or mass effect. Ventricular System: Ventricles are normal in size and configuration. No evidence of hydrocephalus or ventricular enlargement. Subarachnoid Spaces: Normal sulci and cisterns. No evidence of subarachnoid hemorrhage or extra-axial fluid collections. Cerebellum and Brainstem: Hypodense areas in the cerebellum, more evident on the left side. No masses, lesions, or areas of abnormal density in the brainstem. Orbits: Normal appearance of the globes, optic nerves, and extraocular muscles. No evidence of orbital masses or abnormal density. Sinuses: Clear paranasal sinuses. No evidence of sinusitis or mucosal thickening. Mastoid Air Cells: Clear mastoid air cells. No evidence of mastoiditis. Skull: Normal skull morphology. IMPRESSION: 1. A hypodensity is seen in the right superior frontal region with poor differentiation of the overlying cortex (New). 2. Subcortical hypodense areas in the superior parietal regions bilaterally, right occipital region, and hypodense areas in the cerebellum, more evident on the left side(new). Imaging appearances may represent posterior reversible encephalopathy syndrome (PRES). However, other possibilities cannot be excluded on this unenhanced CT. 3. Clinical correlation and further evaluation with an MRI brain, including DWI/ADC sequence, is suggested. Electronically signed by Chai Bonner 04-20-2025 02:54 AM PG Care Time/CCT Total # of Minutes Spent Total Time Spent with Patient: Total time spent is greater than 50% in coordination of care (as documented) at patient's floor/unit and/or counseling patient: Coding Level of Care Code 04842 IN/OBS CONSULT LVL 5,80M Diagnoses ESRD on hemodialysis N18.6; Z99.2 Hypertensive emergency I16.1 PRES (posterior reversible encephalopathy syndrome) I67.83
[2025-04-20] MEDS: VALPROATE SOD 500 MG in DEXTROSE 5% 50 ML IV ONE (11:38)
--- NOTE | 2025-04-20 12:10 | Magnetic Resonance Report ---
MR brain wo con CLINICAL HISTORY: susptected PRES COMPARISON STUDY: CT earlier today and 04/02/2025 MRI FINDINGS: There is a small area of cortical restricted diffusion upper right frontoparietal junction with associated increased T2 signal intensity at that location and extending more anteriorly into the right frontal lobe, interval. No other restricted diffusion seen. There are small to moderate sized areas of increased T2 signal intensity posterior parietal and occipital lobes and posteriorly in the cerebellar hemispheres and at the left frontoparietal junction, increased or interval. No mass effect , midline shift, or hydrocephalus. No intracranial hemorrhage seen. There is a small mucous retention cyst inferior left maxillary sinus. IMPRESSION: 1. Progressive scattered areas of increased T2 signal intensity most prominent posteriorly. Different ial diagnosis includes progressive posterior reversible encephalopathy syndrome and other encephalopa thy. 2. Small area of restricted diffusion right frontoparietal junction with associated increased T2 sign al intensity. Differential diagnosis includes small acute to recent subacute infarction and post seiz ure restricted diffusion. ACT 112: Positive. There are findings on this exam that require communication between the performing entity and the patient following Patient Test Result Information Act ([place] Act 112) guidelines. Electronically signed by: Kaleb Pan M.D. 04/20/2025 12:08 PM
[2025-04-20] MEDS: ONDANSETRON INJ 2 MG/ML 2 ML VIAL IV PRN (12:26)
[2025-04-20] MEDS: levETIRAcetam 500 MG/5 ML VIAL **1000mg IV SCH (15:58)
--- NOTE | 2025-04-21 08:53 | Electroencephalogram ---
EEG Procedure Note Date of Service April 21, 2025 Start / End Times Start Time: 605 End Time: 625 Referring Physician augusto tate History seizure Home Medication List Medication Instructions Recorded Confirmed Type hydroxyzine HCl 25 mg tablet 25 mg PO TID PRN anxiety #90 tabs 11/13/24 04/15/25 Rx amlodipine 10 mg tablet 10 mg PO QAM #90 tabs 01/29/25 04/20/25 Rx calcium acetate(phosphat bind) 667 1,334 mg (2 x 667 mg) PO TIDM 90 01/29/25 04/20/25 Rx mg capsule days #540 caps cholecalciferol (vitamin D3) 125 125 mcg PO QAM #90 tabs 01/29/25 04/20/25 Rx mcg (5,000 unit) tablet Medical Marijuana 1 dose PO DIRECTED PRN Other 03/14/25 04/15/25 History clonidine HCl 0.3 mg tablet 0.3 mg PO DAILY #30 tabs 04/06/25 04/15/25 Rx prochlorperazine maleate 10 mg 10 mg PO Q8H PRN nausea and 04/15/25 Rx tablet (Compazine) vomiting 5 days #15 tabs clonidine 0.3 mg/24 hr weekly 0.3 mg transdermal Q7D 04/17/25 04/20/25 History transdermal patch ketoconazole 2 % topical cream 1 applic topical .every other day 04/17/25 04/20/25 History PRN Rash labetalol 200 mg tablet 400 mg PO BID 04/17/25 04/20/25 History losartan 50 mg tablet 50 mg PO BID 04/17/25 04/20/25 History minoxidil 2.5 mg tablet 5 mg (2 x 2.5 mg) PO DAILY #30 tabs 04/17/25 04/17/25 Rx sertraline 25 mg tablet 25 mg PO DAILY #30 tabs 04/17/25 04/20/25 Rx torsemide 20 mg tablet 40 mg PO BID 04/17/25 04/20/25 History Inpatient Medication List Acetaminophen (Acetaminophen 325 Mg Tab) 650 mg PO Q4H PRN PRN Reason: Pain or Fever Stop: 05/20/25 01:57 Last Admin: 04/20/25 04:50 Dose: 650 mg Documented By: NRS Amlodipine Besylate (Amlodipine Besylate 5 Mg Tab) 10 mg PO QAM [facility] Stop: 05/20/25 08:59 Last Admin: 04/21/25 07:39 Dose: 10 mg Documented By: Admin: 04/20/25 08:18 Dose: 10 mg Documented By: TAMIKO Calcium Acetate (Calcium Acetate 667 Mg Cap/Tab) 1,334 mg PO TIDM [facility] Stop: 05/20/25 07:59 Last Admin: 04/21/25 07:37 Dose: 1,334 mg Documented By: Admin: 04/20/25 18:06 Dose: Not Given Documented By: Admin: 04/20/25 12:32 Dose: Not Given Documented By: Admin: 04/20/25 08:19 Dose: 1,334 mg Documented By: TAMIKO Heparin Sodium (Porcine) (Heparin Sod 5,000 Unit/0.5 Ml Vial) 5,000 units SQ Q8 MOOSE Stop: 05/20/25 05:59 Last Admin: 04/20/25 21:29 Dose: 5,000 units Documented By: Admin: 04/20/25 15:57 Dose: 5,000 units Documented By: Admin: 04/20/25 07:32 Dose: 5,000 units Documented By: UBALDO Hydralazine HCl (Hydralazine Hcl 20 Mg/Ml Vial) 10 mg IV Q4H PRN PRN Reason: SBP>170-1st line(alternate) Stop: 05/20/25 02:09 Last Admin: 04/21/25 00:00 Dose: 10 mg Documented By: UBALDO Hydromorphone HCl (Hydromorphone Inj 0.5 Mg/0.5 Ml Syr) 0.25 mg IV Q4H PRN PRN Reason: Moderate Pain (Scale 4, 5, 6) Stop: 05/04/25 10:04 Last Admin: 04/21/25 02:48 Dose: 0.25 mg Documented By: Admin: 04/20/25 10:23 Dose: 0.25 mg Documented By: TAMIKO Hydromorphone HCl (Hydromorphone Inj 0.5 Mg/0.5 Ml Syr) 1 mg IV Q4H PRN PRN Reason: Severe Pain (Scale 7, 8, 9,10) Stop: 05/04/25 10:04 Last Admin: 04/21/25 07:34 Dose: 1 mg Documented By: Admin: 04/20/25 19:41 Dose: 1 mg Documented By: UBALDO Labetalol HCl (Labetalol Hcl Iv 5 Mg/Ml 20ml) 10 mg IV Q4H PRN PRN Reason: SBP>170-2nd line(alternate) Stop: 05/20/25 02:09 Last Admin: 04/21/25 02:49 Dose: 10 mg Documented By: Admin: 04/20/25 07:33 Dose: 10 mg Documented By: UBALDO Labetalol HCl (Labetalol Hcl 200 Mg Tab) 400 mg PO TID MOOSE Stop: 05/20/25 13:59 Last Admin: 04/21/25 07:39 Dose: 400 mg Documented By: Admin: 04/20/25 21:28 Dose: 400 mg Documented By: Admin: 04/20/25 15:57 Dose: 400 mg Documented By: TAMIKO Levetiracetam (Levetiracetam 500 Mg/5 Ml Vial 1000mg) 1,000 mg IV Q24H [facility] Stop: 05/20/25 14:59 Last Admin: 04/20/25 15:58 Dose: 1,000 mg Documented By: TAMIKO Losartan Potassium (Losartan Potassium 50 Mg Tab) 50 mg PO BID [facility] Stop: 05/20/25 08:59 Last Admin: 04/21/25 07:40 Dose: 50 mg Documented By: Admin: 04/20/25 21:29 Dose: 50 mg Documented By: Admin: 04/20/25 08:20 Dose: 50 mg Documented By: TAMIKO Miscellaneous (Check Clonidine Patch Placement) 1 each N/A QS [facility] Stop: 05/20/25 07:59 Last Admin: 04/21/25 07:40 Dose: 1 each Documented By: Admin: 04/21/25 00:15 Dose: 1 each Documented By: Admin: 04/20/25 16:00 Dose: 1 each Documented By: Admin: 04/20/25 08:18 Dose: 1 each Documented By: TAMIKO Ondansetron HCl (Ondansetron Inj 2 Mg/Ml 2 Ml Vial) 4 mg IV Q6H PRN PRN Reason: Nausea And Vomiting Stop: 05/20/25 01:57 Last Admin: 04/20/25 12:26 Dose: 4 mg Documented By: TAMIKO Sertraline HCl (Sertraline Hcl 50 Mg Tablet) 25 mg PO DAILY [facility] Stop: 05/20/25 08:59 Last Admin: 04/21/25 07:40 Dose: 25 mg Documented By: Admin: 04/20/25 08:19 Dose: 25 mg Documented By: TAMIKO Torsemide (Torsemide 20 Mg Tab) 40 mg PO BID MOOSE Stop: 05/20/25 08:59 Last Admin: 04/21/25 07:38 Dose: 40 mg Documented By: Admin: 04/20/25 21:28 Dose: 40 mg Documented By: Admin: 04/20/25 08:20 Dose: 40 mg Documented By: TAMIKO Vitamin D (Cholecalciferol 125 Mcg (5,000 Units) Tab) 125 mcg PO QAM [facility] Stop: 05/20/25 08:59 Last Admin: 04/21/25 07:38 Dose: 125 mcg Documented By: Admin: 04/20/25 08:20 Dose: 125 mcg Documented By: TAMIKO Discontinued Medications Hydralazine HCl (Hydralazine Hcl 20 Mg/Ml Vial) 10 mg IV Q4H PRN PRN Reason: BP>190/110-1st line(alternate) Stop: 05/20/25 02:09 Last Admin: 04/20/25 02:28 Dose: 10 mg Documented By: NRS Hydromorphone HCl (Hydromorphone Inj 0.5 Mg/0.5 Ml Syr) 0.5 mg IV Q4H PRN PRN Reason: Severe Pain (Scale 7, 8, 9,10) Stop: 05/04/25 10:04 Last Admin: 04/20/25 15:55 Dose: 0.5 mg Documented By: Admin: 04/20/25 12:26 Dose: 0.5 mg Documented By: TAMIKO Sodium Chloride (Nss) 1,000 mls @ 999 mls/hr IV .Q1H1M ONE Stop: 04/19/25 23:31 Last Infusion: 04/19/25 23:56 Dose: Infused Documented By: Admin: 04/19/25 22:34 Dose: 999 mls/hr Documented By: DAT Valproic Acid 500 mg/ Dextrose 55 mls @ 55 mls/hr IV ONE ONE Stop: 04/20/25 11:44 Last Infusion: 04/20/25 13:08 Dose: Infused Documented By: Admin: 04/20/25 11:38 Dose: 55 mls/hr Documented By: TAMIKO Labetalol HCl (Labetalol Hcl Iv 5 Mg/Ml 20ml) 10 mg IV NOW STA Stop: 04/19/25 22:32 Last Admin: 04/19/25 22:36 Dose: 10 mg Documented By: DAT Labetalol HCl (Labetalol Hcl 200 Mg Tab) 400 mg PO BID MOOSE Stop: 05/20/25 08:59 Last Admin: 04/20/25 08:25 Dose: 400 mg Documented By: TAMIKO Levetiracetam (Levetiracetam 500 Mg/5 Ml Vial) 1,700 mg 20 mg/kg (1700 mg) IV NOW STA Stop: 04/19/25 22:31 Last Admin: 04/19/25 22:35 Dose: 1,700 mg Documented By: DAT Lorazepam (Lorazepam 2 Mg/1 Ml Vial) Confirm Administered Dose 2 mg .ROUTE .STK- MED ONE Stop: 04/19/25 22:30 Last Admin: 04/19/25 22:32 Dose: Not Given Documented By: DAT Lorazepam (Lorazepam 2 Mg/1 Ml Vial) 2 mg IV NOW STA Stop: 04/19/25 22:29 Last Admin: 04/19/25 22:32 Dose: 2 mg Documented By: DAT Lorazepam (Lorazepam 2 Mg/1 Ml Vial) 2 mg IV NOW STA Stop: 04/19/25 22:33 Last Admin: 04/20/25 01:48 Dose: Not Given Documented By: BRIE Morphine Sulfate (Morphine Sulfate 4 Mg/Ml 1 Ml Carp\Vial) 4 mg IV Q30M PRN PRN Reason: Pain Stop: 05/03/25 23:31 Last Admin: 04/19/25 23:43 Dose: 4 mg Documented By: BRIE Ondansetron HCl (Ondansetron Inj 2 Mg/Ml 2 Ml Vial) Confirm Administered Dose 4 mg .ROUTE .STK-MED ONE Stop: 04/19/25 23:52 Last Admin: 04/19/25 23:58 Dose: Not Given Documented By: BRIE Ondansetron HCl (Ondansetron Inj 2 Mg/Ml 2 Ml Vial) 4 mg IV NOW STA Stop: 04/19/25 23:58 Last Admin: 04/19/25 23:57 Dose: 4 mg Documented By: BRIE Oxycodone HCl (Oxycodone Hcl Ir 5 Mg Tab (Immediate Release)) 5 mg PO NOW STA Stop: 04/20/25 08:08 Last Admin: 04/20/25 08:16 Dose: 5 mg Documented By: TAMIKO Description This is a 21 electrode EEG with a single channel dedicated to limited EKG. The electrodes were placed in accordance with the International 10-20 system. Interpretation This is a 21 electrode EEG with a single channel dedicated to limited EKG. The electrodes were placed in accordance with the International 10-20 system. There is a posterior dominant rhythm 9 Hz which is symmetrically distributed and attenuates with eye opening. There is a normal anterior to posterior organization. Photic stimulation: unremarkable Hyperventilation performed: ___ unremarkable; _x_ not performed. There is no focal slowing. No epileptiform abnormalities. Sleep stage: _x_ not achieved, ___drowsy state, ___ Stage II, ___ REM stage achieved. Interpretation Normal-appearing awake EEG. A normal EEG does not completely exclude a diagnosis of epilepsy. [facility] EEG Procedure Codes Indication for Procedure (1) Seizure: Neurology Neurology: 44732 EEG include record awake & drowsy
--- NOTE | 2025-04-21 09:12 | Nephrology Progress Note ---
Date of Service April 21, 2025 Assessment & Plan (1) ESRD on hemodialysis: Plan: * Patient was last dialyzed Monday04/20/25. He presented w/ HTN but was only 1.3 kg above his EDW. HD was terminated after 2.5 hours at patient request due to JUAREZ. At home he suffered tonic-clonic seizure * Patient appears clinically euvolemic. Electrolyte balance is acceptable. No acute indication for HD today * Outpatient HD Rx: TTS 3.75 Fx CorAL80 BFR 400/QD800 2K 2Ca 1Mg Na140 HCO3 40 EDW 77.5 kg * Will provide HD tomorrow and attempt 3-4 L UF * Monitor BMP, I&O. Monitor wt but question accuracy (2) Hypertensive emergency: Plan: * Patient reports adherence to prescribed antihypertensive therapy * Continue labetalol 800 mg TID, losartan 50 mg twice daily, amlodipine 10 mg daily, torsemide 40 mg twice daily, clonidine TTS-3 weekly. As needed IV hydralazine and labetalol are available * Start spironolactone 25 mg daily * Monitor BP, HR, LFT * 04/04/25 fractionated plasma catecholamines were low. Will repeat study * Patient appears euthyroid, has no vascular bruit. 04/08/25 renal doppler was negative for FLORA * 04/04/25 cortisol - wnl (5.22) * Repeat urine free kappa/lambda light chain ratio (3) PRES (posterior reversible encephalopathy syndrome): Plan: * BP control, anticonvulsant therapy Admission and Anticipated Discharge Date Admission Date: April 20, 2025 Subjective Mr. Ramos was evaluated in his hospital room this morning. He complained of headache and loss of vision from his left lateral visual field. Right visual field has recovered. He has had no seizure activity overnight per his report. Review of Systems Constitutional: no fever Eyes: no problem reported Ear, Nose, Mouth, Throat: no problem reported Respiratory: no cough and no dyspnea Cardiovascular: no chest pain and no edema Gastrointestinal: no abdominal pain, no nausea, no vomiting and no diarrhea/loose stools Genitourinary: no difficulty urinating Integumentary: no rash Neurologic: + seizure-like activity and + headache(s ) Physical Exam Constitutional: + in distress (Headache) Eyes: PERRL, conjunctivae normal, anicteric sclerae ENMT: external ear and nose normal, oropharynx normal Neck: trachea midline, no thyromegaly (R IJ TCC with clean dry dressing in place) Respiratory: normal respiratory effort, lungs clear to auscultation Cardiovascular: RRR, no murmur, no edema Gastrointestinal (Abdomen): normal bowel sounds, soft, nontender, no hepatosplenomegaly Musculoskeletal: Extremities: no cyanosis and no clubbing Skin: no rashes, warm and dry Neurologic: no focal motor deficits Results & Data Vital Signs (Past 12 Hours) Vital Signs Temp Pulse Pulse Resp BP BP Pulse Ox 04/21/25 08:56 36.8 C 82 16 190/119 H 92 04/21/25 03:12 74 170/91 H 04/21/25 02:38 36.8 C 83 20 174/94 H 94 04/21/25 00:20 36.5 C 84 16 178/105 H 93 04/20/25 21:47 70 O2 Del Method 04/21/25 08:56 Room Air 04/21/25 03:12 04/21/25 02:38 Room Air 04/21/25 00:20 Room Air 04/20/25 21:47 Laboratory Results Laboratory Results - last 24 hr 04/20/25 04/21/25 08:36 08:40 WBC Pending RBC Pending Hgb Pending Hct Pending MCV Pending MCH Pending MCHC Pending Plt Count Pending Sodium Pending Potassium Pending Chloride Pending Carbon Dioxide Pending Anion Gap Pending BUN Pending Creatinine Pending Est Cr Clr Drug Dosing Pending eGFR Pending BUN/Creatinine Ratio Pending Glucose Pending Calcium Pending Phosphorus Pending Magnesium Pending Total Bilirubin Pending AST Pending ALT Pending Alkaline Phosphatase Pending Total Protein Pending Albumin Pending Globulin Pending Albumin/Globulin Ratio Pending Tot Cheriton/Lambda Ratio Pending Cheriton Light Chain Anal Pending Lambda Light Chain Anal Pending PG Care Time/CCT Total # of Minutes Spent Total Time Spent with Patient: Total time spent is greater than 50% in coordination of care (as documented) at patient's floor/unit and/or counseling patient: Coding Level of Care Code 81815 SUB INP/OBS CARE 3/50MIN Diagnoses ESRD on hemodialysis N18.6; Z99.2 Hypertensive emergency I16.1 PRES (posterior reversible encephalopathy syndrome) I67.83
[2025-04-21 09:19] LABS: Hematocrit (blood only) 24.9 % (42.0-52.0); Hemoglobin 8.3 g/dl (14.0-18.0); Mean Corpuscular Hemoglobin 30.0 pg (25.0-34.0); Mean Corpuscular Volume 89.9 fL (80.0-100.0); Platelet Count 72 K/uL (130-400); RDW Standard Deviation 42.7 fL (36.4-46.3); Red Blood Count 2.77 M/uL (4.70-6.10); White Blood Count 5.10 K/ul (4.8-10.8)
[2025-04-21 09:58] LABS: Alanine Aminotransferase 8.0 U/L (7-52); Albumin Globulin Ratio 2.3 (0.9-2); Alkaline Phosphatase 55.0 U/L (34-104); Anion Gap 13.0 (3-11); Bilirubin,Total 0.6 mg/dl (0.2-1.0); Blood Urea Nitrogen 57.0 mg/dl (6-23); Calcium 8.8 mg/dl (8.6-10.3); Carbon Dioxide 30.0 mmol/L (21-32); Chloride 97.0 mmol/L (98-107); Creatinine Clr Calc Pharmacy 9.3 ml/min; Globulin 1.6 gm/dl (2.5-4.0); Glucose 78.0 mg/dl (70-99(Fasting)); Magnesium 2.8 mg/dl (1.7-2.4); Potassium 4.4 mmol/L (3.5-5.1); Sodium 140.0 mmol/L (136-145); Total Protein 5.3 gm/dl (6.0-8.3)
[2025-04-21] MEDS: ACETAMINOPHEN 325 MG TAB PO SCH (10:39)
[2025-04-21] MEDS: SPIRONOLACTONE 25 MG TAB PO SCH (10:39)
--- NOTE | 2025-04-21 11:01 | Neurology Consultation ---
Date of Consultation April 21, 2025 Assessment & Plan (1) Seizure: History of Present Illness Attending Physician: Alanna Felix MD History of Present Illness S: pt this morning alert and comfortable. no seizures. mri brain noted for similar lesions and also rt frontal DWI changes but not ADC matching lesion. mri reviewed. BP still difficult but improving. ED admission NOte: This is a 20-year-old male presenting to the emergency department from home via EMS for evaluation of seizure episode this evening. Patient has an unfortunate medical history. He has end-stage renal disease on hemodialysis on Monday, , and Monday. Patient went to dialysis today and was not feeling well and discontinued dialysis early. He ultimately made it back to his home where he lives with his parents, and fell asleep on the couch. Mother came into the room after hearing something abnormal, and patient was seizing. This was roughly a 1 to 2-minute grand mal style seizure, and there was a postictal phase. Patient does have 1 previous seizure episode, which was earlier this month, and felt to be BP related with PRES. Patient has been having some difficulty managing his blood pressure and recently had a 0.1 mg increased dose on his clonidine. He continues with a mild persistent headache, and seems to be describing a scotoma of the left eye that has been persistent for some time. No recent fevers or chills. No chest pain, chest tightness, shortness of breath, or extremity pain is reported. Patient's overall discomfort is rated a 10/10. Allergies Allergy/AdvReac Type Severity Reaction Status Date / Time No Known Allergies Allergy Unknown Verified 04/17/25 11:25 Home Medications Medication Instructions Recorded Confirmed Type hydroxyzine HCl 25 mg tablet 25 mg PO TID PRN anxiety #90 tabs 11/13/24 04/15/25 Rx amlodipine 10 mg tablet 10 mg PO QAM #90 tabs 01/29/25 04/20/25 Rx calcium acetate(phosphat bind) 667 1,334 mg (2 x 667 mg) PO TIDM 90 01/29/25 04/20/25 Rx mg capsule days #540 caps cholecalciferol (vitamin D3) 125 125 mcg PO QAM #90 tabs 01/29/25 04/20/25 Rx mcg (5,000 unit) tablet Medical Marijuana 1 dose PO DIRECTED PRN Other 03/14/25 04/15/25 History clonidine HCl 0.3 mg tablet 0.3 mg PO DAILY #30 tabs 04/06/25 04/15/25 Rx prochlorperazine maleate 10 mg 10 mg PO Q8H PRN nausea and 04/15/25 Rx tablet (Compazine) vomiting 5 days #15 tabs clonidine 0.3 mg/24 hr weekly 0.3 mg transdermal Q7D 04/17/25 04/20/25 History transdermal patch ketoconazole 2 % topical cream 1 applic topical .every other day 04/17/25 04/20/25 History PRN Rash labetalol 200 mg tablet 400 mg PO BID 04/17/25 04/20/25 History losartan 50 mg tablet 50 mg PO BID 04/17/25 04/20/25 History minoxidil 2.5 mg tablet 5 mg (2 x 2.5 mg) PO DAILY #30 tabs 04/17/25 04/17/25 Rx sertraline 25 mg tablet 25 mg PO DAILY #30 tabs 04/17/25 04/20/25 Rx torsemide 20 mg tablet 40 mg PO BID 04/17/25 04/20/25 History Patient History Medical History Hx of metabolic acidosis Anticoagulated on Coumadin pt states he has not been taking his Coumadin since apprx mid January 2025 Dialysis patient [facility] in [place] > tues/thurs/sat History of postoperative nausea and vomiting Hx of deep venous thrombosis 01/2024 > right arm > was on warfarin > now DC'ed Cardiac murmur Anemia FSGS (focal segmental glomerulosclerosis) Generalized anxiety disorder Thrombophilia End stage renal disease follows with Dr. Mcdermott - HD 3x per week:[facility] in [place] > tues/thurs/sat CKD (chronic kidney disease) Hypertension recently added clonidine 0.[address] mcdermott Surgical History S/P hemodialysis catheter insertion (12/2024) perm cath for HD- right jugular S/P left knee arthroscopy H/O hernia repair Family History Mother Diabetes Grandfather (Maternal) Hypertension Other No family history of adverse response to anesthesia Denies family history of Ovarian cancer Prostate cancer Myocardial infarction Breast cancer Lung cancer Stroke Social History Smoking Status: Never smoker Tobacco Type: Smokeless Tobacco (Dip or Chew) Second Hand Exposure: No; Do You Dip or Chew Tobacco: No; Tobacco Cessation Education Requested by Patient: No Hx Alcohol Use: No Hx Substance Use: No Preferred Language: Palauan Communication Ability: Effective Visual Impairment: No Limitations Hearing Ability: Normal Loan Interviewer Required: No Beliefs That Will Affect Care: None marital status: Single Current Living Situation: Parent Current Living Situation Comment: lives at home with family current occupational status: employed 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 rt vision normal. Motor: No abnormal movements, normal tone, 5/5 t/o bilaterally Coord: intact Impression: 20 yo male with ESRD and HTN urgency with breakthrough seizures in setting of PRES. MRI brain similar to prior and new lesions on rt frontal area appears to be seizure related changes and perhaps new PRES lesions. Does not appears to be ischemic stroke. EEG stable. Recommendations: continue keppra 1000mg IV daily. need extra dose keppra 500mg IV x1 after each HD. continue work on HTN control with SBP target goal of below 150 when pt ready to discharge home, recommend continue keppra as outpt also for at least about 3 months until PRES resolves. not much else to add from neurology stand point. call again if new question. he can follow up as outpt as planned. Chart reviewed I have spent more than 50% educating patient about potential diagnosis and neurological evaluation and coordinating care with patient's treatment team. Total time spent (including chart review and coordination of care): 50 min (this includes chart review). Results & Data Vital Signs (Past 12 Hours) Vital Signs Temp Pulse Pulse Resp BP BP Pulse Ox 04/21/25 10:00 161/83 H 04/21/25 09:40 181/105 H 04/21/25 08:56 36.8 C 82 16 190/119 H 92 04/21/25 03:12 74 170/91 H 04/21/25 02:38 36.8 C 83 20 174/94 H 94 04/21/25 00:20 36.5 C 84 16 178/105 H 93 O2 Del Method 04/21/25 10:00 04/21/25 09:40 04/21/25 08:56 Room Air 04/21/25 03:12 04/21/25 02:38 Room Air 04/21/25 00:20 Room Air PG Care Time/CCT Total # of Minutes Spent Total Time Spent with Patient: Total time spent is greater than 50% in coordination of care (as documented) at patient's floor/unit and/or counseling patient: Coding Level of Care Code 76203 IN/OBS CONSULT LVL 3,45M Diagnoses Seizure R56.9
--- NOTE | 2025-04-21 15:46 | XCELERA ---
[id number]
--- NOTE | 2025-04-21 17:03 | Hospitalist Progress Note ---
Date of Service April 21, 2025 Assessment & Plan (1) Seizure: (2) PRES (posterior reversible encephalopathy syndrome): (3) ESRD on hemodialysis: (4) Intractable headache: (5) Severe uncontrolled hypertension: Plan Kvng Ramos is a 20yo male presenting with two witnessed seizures. 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 He had a seizure during a prior admission - thought to be secondary to PRES. He was briefly on Keppra but then was discontinued. He is working with his Manager Of Housekeeping to control his blood pressure. #PRES syndrome with seizure prior to last admission and recurrent seizures #Severe uncontrolled hypertension -Maintain seizure precautions -Normal EEG 04/21 -MRI Brain - consistent with PRES, also there is a small area right frontoparietal junction that could be small acute or subacute infarct vs post seizure restricted diffusion -Ativan PRN seizure activity -continue keppra -consulted neurology Dr. Valle reviewed recs - continuing keppra at least 3 mo until PRES resolved. He thought MRI new R frontal area lesion was seizure related or new PRES lesions, not stroke -Gradual lowering of blood pressure -Clonidine patch 0.3mg daily -Labetalol increased by food bagging machine operator -Losartan 50mg po BID -Amlodipine 10mg po daily -Torsemide 40mg po BID -food bagging machine operator added spironolactone today -Hydralazine 10mg IV q 4 hours PRN SBP >170 -Labetalol 10mg IV q 4 hours as needed for SBP > 170 -blood pressure is better controlled today Metanephrines ordered by food bagging machine operator - pending Recent renal artery duplex negative for FLORA No evidence of volume overload on exam, gets good UF with dialysis # Intractable headache - bifrontal and has had some spots with vision disturbance -may be related to uncontrolled hypertension and PRES - cont hydromorphone 0.5-1 mg IV PRN -consider migraine - triptan inadvisable right now with MRI findings and uncontrolled HTN. Tried valproate 500 mg IV x 1 but did not resolve headache -no evidence of ICH on imaging -unfortunately not improved yet with better BP #ESRD secondary to FSGS on HD, anemia of CKD -Continue Phoslo -CBC BMP mag phos reviewed - notable for Hg 9.1-->8.3 and mag of 2.8. -Nephrology consultation appreciated -dialysis access - currently has tunneled HD line, states working well. planned for AVF soon - contacted Dr. Pacheco and he says it will have to be delayed. #Hepatosplenomegaly and cardiomegaly - based on CT report. May be over-call however, consider infiltrative diseases which can present like FSGS according to literature review. -SPEP and ifix from past labs reviewed. 09/2023 pattern consistent with bisalbuminemia or pancreas disease, faint M-spike. Negative immunofixation in 2022. -kappa/lambda light chains pending -recent ferritin and transferrin saturation not elevated, not c/w hemochromatosis -consider amyloidosis or sarcoidosis -Ordered TTE - reviewed - hyperdynamic and he does have severe asymmetric LVH. Could be related to severe hypertension, HCM, cardiac amyloidosis, Fabry disease (doesn't cause hepatomegaly) #Anxiety/Depression -Continue Sertraline 25mg po daily -no appetite and trouble sleeping - add mirtazapine 15 mg HS -consulted RD Admission and Anticipated Discharge Date Admission Date: April 20, 2025 Subjective still having severe headache, improved but not resolved after 1 mg hydromorphone this am no seizures BP improved He does have a left eye vision disturbance - present last admission but has changed in character Physical Exam 2 Physical Exam: Last 24h vitals reviewed GEN: awake lying in bed in the dark HEENT: pupils equal, sclerae anicteric, moist MM RESP: normal WOB CV: tunneled HD line R upper chest ABD: ND : no conley SKIN: warm and dry, no generalized rashes NEURO: AOx person, place, and situation. Face symmetric, speech normal, moves 4 ext spontaneously and equally Results & Data Results & Data Vital Signs (Past 12 Hours) Vital Signs Temp Pulse Pulse Resp BP BP Pulse Ox 04/21/25 15:14 36.4 C L 90 18 168/92 H 166/63 H 91 04/21/25 14:00 145/79 H 04/21/25 12:00 36.4 C L 87 18 164/89 H 94 04/21/25 10:00 161/83 H 04/21/25 09:40 181/105 H 04/21/25 08:56 36.8 C 82 16 190/119 H 92 04/21/25 08:00 77 O2 Del Method 04/21/25 15:14 Room Air 04/21/25 14:00 04/21/25 12:00 Room Air 04/21/25 10:00 04/21/25 09:40 04/21/25 08:56 Room Air 04/21/25 08:00 Laboratory Results 04/21/25 08:40 04/21/25 08:40 PG Care Time/CCT Total # of Minutes Spent Total Time Spent with Patient: Total time spent is greater than 50% in coordination of care (as documented) at patient's floor/unit and/or counseling patient: Coding Level of Care Code 43272 SUB INP/OBS CARE 3/50MIN Diagnoses Seizure R56.9 PRES (posterior reversible encephalopathy syndrome) I67.83 ESRD on hemodialysis N18.6; Z99.2 Intractable headache R51.9 Severe uncontrolled hypertension I10
[2025-04-21] MEDS: MIRTAZAPINE TAB 15 MG TAB PO SCH (20:43)
[2025-04-22 06:53] LABS: Hematocrit (blood only) 24.1 % (42.0-52.0); Hemoglobin 8.0 g/dl (14.0-18.0); Mean Corpuscular Hemoglobin 29.4 pg (25.0-34.0); Mean Corpuscular Volume 88.6 fL (80.0-100.0); Platelet Count 71 K/uL (130-400); RDW Standard Deviation 41.9 fL (36.4-46.3); Red Blood Count 2.72 M/uL (4.70-6.10); White Blood Count 4.31 K/ul (4.8-10.8)
[2025-04-22] MEDS ORDERED: SODIUM CHLORIDE 0.9% 1,000 ML IV PRN (07:00)
[2025-04-22 07:25] LABS: Anion Gap 13.0 (3-11); Blood Urea Nitrogen 70.0 mg/dl (6-23); Calcium 8.6 mg/dl (8.6-10.3); Carbon Dioxide 31.0 mmol/L (21-32); Chloride 95.0 mmol/L (98-107); Creatinine Clr Calc Pharmacy 7.8 ml/min; Glucose 81.0 mg/dl (70-99(Fasting)); Magnesium 2.8 mg/dl (1.7-2.4); Potassium 4.9 mmol/L (3.5-5.1); Sodium 139.0 mmol/L (136-145)
[2025-04-22] MEDS: HYDROmorphone INJ 1 MG/ML SYRINGE IV STA ×2 (08:37→15:09)
[2025-04-22] MEDS: DOCUSATE SODIUM 100 MG CAP PO PRN (08:41)
--- NOTE | 2025-04-22 08:42 | Hospitalist Progress Note ---
Date of Service April 22, 2025 Assessment & Plan (1) Seizure: (2) PRES (posterior reversible encephalopathy syndrome): (3) ESRD on hemodialysis: (4) Intractable headache: (5) Severe uncontrolled hypertension: Plan Kvng Ramos is a 20yo male presenting with two witnessed seizures. 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 He had a seizure during a prior admission - thought to be secondary to PRES. He was briefly on Keppra but then was discontinued. He is working with his Tire Repairman to control his blood pressure. #PRES syndrome with seizure prior to last admission and recurrent seizures #Severe uncontrolled hypertension -Maintain seizure precautions -Normal EEG 04/21 -MRI Brain - consistent with PRES, also there is a small area right frontoparietal junction that could be small acute or subacute infarct vs post seizure restricted diffusion -Ativan PRN seizure activity - no seizures during admission -continue keppra -consulted neurology Dr. Valle reviewed recs - continuing keppra at least 3 mo u ntil PRES resolved. He thought MRI new R frontal area lesion was seizure related or new PRES lesions, not stroke -Gradual lowering of blood pressure -Clonidine patch 0.3mg daily -Labetalol increased by time signal wirer to 400 mg tid -Losartan 50mg po BID -Amlodipine 10mg po daily -Torsemide 40mg po BID -added spironolactone today -stop IV hydralazine may be exacerbating headaches -Labetalol 10mg IV q 4 hours as needed for SBP > 170 -blood pressure is much better controlled past 48h Metanephrines and renin:mynor ordered by time signal wirer - pending Recent renal artery duplex negative for FLORA No evidence of volume overload on exam, gets good UF with dialysis # epistaxis vs less likely marleen hemoptysis - coughed up 2-3 Tbsp marleen blood. Consulted pulmonary discussed with Dr. Vogel - after discussion with patient seems likely sinus blood - sinus CT - nasal saline and afrin (caution with hypertension) - empiric augmentin for possible sinusitis. Dr. Vogel added doxycycline in case of tickborne illness - obtained stat CXR - personally reviewed film - clear. Not hypoxic - CBC, PT, PTT, type and cross # Intractable headache - bifrontal and has had some spots with vision disturbance, photophobia, nausea but no emesis -may be related to uncontrolled hypertension and PRES - multiple doses of IV hydromorphone today with no apparent improvement, APAP, compazine -consider migraine - triptan contraindicated with PRES, NSAID contraindicated still urinates try migraine cocktail: dexamethasone 10 mg IV x 1, VPA 1000 mg IV x 1, reglan 10 mg IV x 1 -no evidence of ICH on imaging - repeat head CT stat along with sinus CT -no meningismus or fevers -unfortunately not improved yet with better BP -stopped IV hydralazine - has gotten several PRN doses, this AM very severe headache followed PRN dose #ESRD secondary to FSGS on HD, anemia of CKD -Continue Phoslo -CBC BMP mag phos reviewed - notable for Hg 9.1-->8.3 and mag of 2.8. -Nephrology consultation appreciated -dialysis access - currently has tunneled HD line, states working well. planned for AVF soon - contacted Dr. Pacheco and he says it will have to be delayed. #Hepatosplenomegaly and cardiomegaly - based on CT report. consider infiltrative diseases which can present like FSGS according to literature review. -SPEP and ifix from past labs reviewed. 09/2023 pattern consistent with bisalbuminemia or pancreas disease, faint M-spike. Negative immunofixation in 2022. -kappa/lambda light chains pending -recent ferritin and transferrin saturation not elevated, not c/w hemochromatosis -consider amyloidosis or sarcoidosis -OC level pending -TTE - hyperdynamic and he does have severe asymmetric LVH. Could be related to severe hypertension, HCM, cardiac amyloidosis, Fabry disease (doesn't cause hepatomegaly). Discussed with reading business law teacher Dr. Ritter - area of hypertrophy is not septum but HCM can present in other areas so can't rule out, could be hypertensive, quite striking on Echo - recommended cardiac MRI (can be done outpatient at [facility]) -ordered abdominal US to further evaluate whether he really has HSM - moderate hepatosplenomegaly present #Anxiety/Depression -Continue Sertraline 25mg po daily -no appetite and trouble sleeping - added mirtazapine 15 mg HS -consulted RD #Thrombocytopenia -has had during past admissions. frequent heparin exposure, no evidence of thrombosis -stop SQ heparin -Abd US with splenomegaly which contributes -monitor CBC #DVT ppx - SCDs, stopped SQ heparin 04/22 for falling platelets Admission and Anticipated Discharge Date Admission Date: April 20, 2025 Subjective intractable headache 07/04 this am despite 1 mg IV hydromorphone notably had IV hydralazine earlier this AM multiple medications throughout the day for 1010 bifrontal headache with photophobia, no emesis. All ineffective. BP well controlled for him late afternoon episode of marleen hemoptysis. consulted pulmonary. on further investigation seems to be sinus bleeding / epistaxis no chest pain, cough, shortness of breath, no leg pain or swelling Physical Exam Physical Exam: Last 24h vitals reviewed GEN: awake in dark room wearing eye mask HEENT: pupils equal, sclerae anicteric, dry MM RESP: normal WOB CTAB no rrw CV: tunneled HD line R upper chest ABD: S/NT/ND : no conley SKIN: warm and dry, no generalized rashes NEURO: AOx person, place, and situation. Face symmetric, speech normal, moves 4 ext spontaneously and equally Full ROM at neck including [id number] and flex/extend, can flex hips without pain, no meningismus Results & Data Results & Data Vital Signs (Past 12 Hours) Vital Signs Temp Pulse Pulse Resp BP Pulse Ox O2 Del Method 04/22/25 08:16 36.4 C L 78 20 166/97 H 93 Room Air 04/22/25 05:13 162/88 H 04/22/25 03:53 36.5 C 80 18 181/117 H 91 Room Air 04/21/25 23:23 71 04/21/25 22:08 36.5 C 74 18 154/104 H Room Air Laboratory Results Platelets 71 Mag 2.8 K 4.9 PG Care Time/CCT Total # of Minutes Spent Total Time Spent with Patient: Total time spent is greater than 50% in coordination of care (as documented) at patient's floor/unit and/or counseling patient: I spent 35 minutes of critical care time at the bedside evaluating marleen hemoptysis which is potentially life-threatening event - including evaluating the patient obtaining history and physical exam, discussion with bedside nurse, discussion with pulmonary consultants, writing orders, interpreting lab studies and radiology images and reports including chest x-ray head CT, sinus CT Coding Level of Care Code None Diagnoses Seizure R56.9 PRES (posterior reversible encephalopathy syndrome) I67.83 ESRD on hemodialysis N18.6; Z99.2 Intractable headache R51.9 Severe uncontrolled hypertension I10
--- NOTE | 2025-04-22 09:15 | Nephrology Progress Note ---
Date of Service April 22, 2025 Assessment & Plan (1) ESRD on hemodialysis: Plan: * Outpatient HD Rx: TTS 3.75 Fx CorAL80 BFR 400/QD800 2K 2Ca 1Mg Na140 HCO3 40 EDW 77.5 kg * Will provide HD today and attempt 3-4 L UF * Monitor BMP, I&O. Monitor wt but question accuracy (2) Hypertensive emergency: Plan: * Patient reports adherence to prescribed antihypertensive therapy * Continue labetalol 800 mg TID, losartan 50 mg twice daily, amlodipine 10 mg daily, torsemide 40 mg twice daily, spironolactone 25 mg daily and clonidine TTS-3 weekly. * Still requiring PRN hydralazine and labetalol * If BP improves w/ HD and PRN medications no longer needed, will then attempt to consolidate BP regimen * Monitor BP, HR, LFT * 04/04/25 fractionated plasma catecholamines were low. Will repeat study * Patient appears euthyroid, has no vascular bruit. 04/08/25 renal doppler was negative for FLORA * 04/04/25 cortisol - wnl (5.22) * Repeat urine free kappa/lambda light chain ratio * 04/21/25 echocardiogram: LVEF>70%, no RWMA, severe LVH. Cardiac amyloid was not reported * Clinically doubt sarcoidosis. Normal serum Ca. CXR without LAD. Will check vitamin D, serum OC (3) PRES (posterior reversible encephalopathy syndrome): Plan: * BP control, anticonvulsant therapy Admission and Anticipated Discharge Date Admission Date: April 20, 2025 Subjective Mr. Ramos was evaluated in his hospital room this morning. Headache has improved. He denied any further seizure activity. Review of Systems Constitutional: no fever Eyes: no problem reported Ear, Nose, Mouth, Throat: no problem reported Respiratory: no cough and no dyspnea Cardiovascular: no chest pain and no edema Gastrointestinal: no abdominal pain, no nausea, no vomiting and no diarrhea/loose stools Genitourinary: no difficulty urinating Integumentary: no rash Neurologic: + seizure-like activity and + headache(s ) Physical Exam Constitutional: no acute distress Eyes: PERRL, conjunctivae normal, anicteric sclerae ENMT: external ear and nose normal, oropharynx normal Neck: trachea midline, no thyromegaly (R IJ TCC with clean dry dressing in place) Respiratory: normal respiratory effort, lungs clear to auscultation Cardiovascular: RRR, no murmur, no edema Gastrointestinal (Abdomen): normal bowel sounds, soft, nontender, no hepatosplenomegaly Musculoskeletal: Extremities: no cyanosis and no clubbing Skin: no rashes, warm and dry Neurologic: no focal motor deficits Results & Data Vital Signs (Past 12 Hours) Vital Signs Temp Pulse Pulse Resp BP Pulse Ox O2 Del Method 04/22/25 08:16 36.4 C L 78 20 166/97 H 93 Room Air 04/22/25 05:13 162/88 H 04/22/25 03:53 36.5 C 80 18 181/117 H 91 Room Air 04/21/25 23:23 71 04/21/25 22:08 36.5 C 74 18 154/104 H Room Air Laboratory Results Laboratory Results - last 24 hr 04/21/25 04/22/25 08:40 06:29 WBC 5.10 4.31 L RBC 2.77 L 2.72 L Hgb 8.3 L 8.0 L Hct 24.9 L 24.1 L MCV 89.9 88.6 MCH 30.0 29.4 MCHC 33.3 33.2 RDW Std Deviation 42.7 41.9 RDW Coeff of Juliana 12.9 13.0 Plt Count 72 L 71 L MPV 12.0 11.4 Sodium 140 139 Potassium 4.4 4.9 Chloride 97 L 95 L Carbon Dioxide 30 31 Anion Gap 13 H 13 H BUN 57 H 70 H Creatinine 14.36 H* D 17.07 H* D Est Cr Clr Drug Dosing 9.3 7.8 eGFR 4.52 3.67 BUN/Creatinine Ratio 4.0 L 4.1 L Glucose 78 81 Calcium 8.8 8.6 Phosphorus 8.0 H 9.0 H Magnesium 2.8 H 2.8 H Total Bilirubin 0.6 AST 12 L ALT 8 Alkaline Phosphatase 55 Total Protein 5.3 L Albumin 3.7 Globulin 1.6 L Albumin/Globulin Ratio 2.3 H PG Care Time/CCT Total # of Minutes Spent Total Time Spent with Patient: Total time spent is greater than 50% in coordination of care (as documented) at patient's floor/unit and/or counseling patient: Coding Level of Care Code 39303 SUB INP/OBS CARE 3/50MIN Diagnoses ESRD on hemodialysis N18.6; Z99.2 Hypertensive emergency I16.1 PRES (posterior reversible encephalopathy syndrome) I67.83
[2025-04-22] MEDS: PROCHLORPERAZINE 5 MG in SYRINGE 4 ML IV ONE (09:19)
[2025-04-22] MEDS: LABETALOL HCL IV 5 MG/ML 20ML IV PRN (14:42)
[2025-04-22] MEDS: GABAPENTIN 600 MG TAB PO STA (14:43)
--- NOTE | 2025-04-22 14:52 | Ultrasound Report ---
ABDOMINAL ULTRASOUND, RIGHT UPPER QUADRANT HISTORY: eval poss hepatosplenomegaly based on CT, hx ESRD. COMPARISON: CT of the abdomen and pelvis April 09, 2025. CT of the abdomen and pelvis September 03. TECHNIQUE: Sonography of the liver and spleen was performed. FINDINGS: Small bilateral pleural effusions are incidentally noted. The liver is enlarged, measuring 21 cm in craniocaudal dimension. Trace perihepatic ascites. No hepatic lesions are identified. The sp chloe is also enlarged, measuring 21 cm in maximal dimension. No splenic lesions are identified. IMPRESSION: 1. Moderate hepatosplenomegaly. 2. Small bilateral pleural effusions. ACT 112: Negative or not required by law. Electronically signed by: Magdy Jones M.D. 04/22/2025 2:51 PM
[2025-04-22] MEDS ORDERED: DEXAMETHASONE SOD INJ 4 MG/ML VIAL IV STA (15:04)
[2025-04-22] MEDS ORDERED: PANTOPRAZOLE BOLUS/DRIP IV STA (15:38)
[2025-04-22] MEDS: VALPROATE SOD 1,000 MG in DEXTROSE 5% 100 ML IV STA (15:44)
[2025-04-22] MEDS: dexAMETHasone 10 MG in SYRINGE 0 ML IV STA (15:45)
[2025-04-22] MEDS ORDERED: SODIUM CHLORIDE 0.65% NA SOLN 45 ML (OCEAN) PRN (16:30)
--- NOTE | 2025-04-22 16:41 | XRay Report ---
Technique: A frontal view of the chest was obtained Comparison is made to the prior examination dated 04/15/2025 Findings: There are no confluent pulmonary infiltrates. The heart size is within normal limits. No pleural effusion or pneumothorax is seen. There is no definite pulmonary nodule. No fracture is noted. There is a right jugular central venous line with its tip in the SVC Impression: No active disease Electronically signed by Harmeet Tsai 04-22-2025 4:41 PM
--- NOTE | 2025-04-22 17:11 | CT Scan Report ---
Clinical History: Headache Technique: Axial computed tomography images were obtained of the brain from the vertex to the skull base without intravenous contrast. Comparison is made to the prior CT dated 04/20/2025 Findings: There is no sign of intracranial hemorrhage. There is no definite change in cortical and subcortical low attenuation in the parietal lobes bilaterally and the right occipital lobe. No midline shift or other form of herniation is identified. There is no hydrocephalus. No obvious mass lesion is seen on this noncontrast examination. The visualized portions of the orbits and paranasal sinuses appear unremarkable. The mastoid air cells appear clear Impression: 1. No definite acute pathology 2. Unchanged cortical and subcortical low attenuation in the bilateral parietal lobes and the right occipital lobe. This could be due to old infarcts or posterior reversible encephalopathy syndrome Electronically signed by Harmeet Tsai 04-22-2025 5:11 PM
--- NOTE | 2025-04-22 17:12 | Billing Data ---
Date of Service April 22, 2025 Coding Level of Care Code 07694 CRITICAL CARE
[2025-04-22 17:36] LABS: INR 1.0 (0.9-1.1); Partial Thromboplastin Time 26 Seconds (21-31); Prothrombin Time 10.5 Seconds (9.0-12.0)
[2025-04-22 17:45] LABS: Hematocrit (blood only) 26.4 % (42.0-52.0); Hemoglobin 9.0 g/dl (14.0-18.0); Mean Corpuscular Hemoglobin 29.8 pg (25.0-34.0); Mean Corpuscular Volume 87.4 fL (80.0-100.0); Platelet Count 89 K/uL (130-400); RDW Standard Deviation 41.1 fL (36.4-46.3); Red Blood Count 3.02 M/uL (4.70-6.10); White Blood Count 6.35 K/ul (4.8-10.8)
--- NOTE | 2025-04-22 17:48 | CT Scan Report ---
Clinical history: Sinusitis Technique: Axial computed tomography images were obtained of the paranasal sinuses without intravenous contrast. Sagittal and coronal reconstructions were obtained Findings: There are mucus retention cyst in the maxillary sinuses bilaterally. The remainder of the paranasal sinuses appear clear without significant mucosal thickening, fluid, retention cyst, or mass. The ostiomeatal units are narrowed by mucosal thickening but patent bilaterally. The mastoid air cells appear clear The orbits appear unremarkable. No foreign body is seen. The nasal septum is deviated. No definite nasal polyp is noted No fracture is identified. No focal osseous lesion is noted. The visualized brain appears unremarkable Impression: Mild chronic sinusitis Electronically signed by Harmeet Tsai 04-22-2025 5:48 PM
--- NOTE | 2025-04-22 18:11 | Pulmonary Consultation ---
Date of Consultation April 22, 2025 Assessment & Plan (1) Hemoptysis: (2) Sinusitis: (3) Thrombocytopenia: Plan Etiology hemoptysis likely due to sinusitis. Recommend empirically treating with doxycycline and Augmentin. 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 Peripheral smear and tickborne panel ordered. Check INR. Chest x-ray clear. If further hemoptysis, consider chest CTA although chest x- ray does not reveal any evidence of infiltrate. Highly consider the use of nebulized TXA if further epistaxis or hemoptysis. Highly doubtful of alveolar hemorrhage. Hemoglobin has actually gone up point compared to prior hemoglobin from this morning. Nasal saline irrigation ordered to help moisten the mucous membranes of his sinuses. Consider outpatient ENT evaluation. Discussed with hospitalist service. Patient and patient's mother comfortable with plan and all questions answered. Thank you for the consult. Please call with questions. History of Present Illness Reason for Consultation: Hemoptysis Attending Physician: Alanna Felix MD History of Present Illness 20-year-old male who presented to the hospital with press syndrome and episode of hemoptysis this evening. Patient notes that this is occurred before and also had epistaxis. His mouth is very dry along with his nares. He has been taking minimal p.o. intake. He notes that he coughed and had a moderate amount of dark red blood admixed with sputum. He denies any chest pain or shortness of breath. Chest x-ray did not reveal any active process. Sinus CT ordered by hospitalist revealed mild chronic sinusitis. I recommend initiation of Augmentin and doxycycline. Patient also with dropping platelet of unclear etiology. Patient has not had any further epistaxis or hemoptysis. Patient denies any tobacco abuse. He does vape marijuana. Allergies Allergy/AdvReac Type Severity Reaction Status Date / Time No Known Allergies Allergy Unknown Verified 04/17/25 11:25 Home Medications Medication Instructions Recorded Confirmed Type hydroxyzine HCl 25 mg tablet 25 mg PO TID PRN anxiety #90 tabs 11/13/24 04/15/25 Rx amlodipine 10 mg tablet 10 mg PO QAM #90 tabs 01/29/25 04/20/25 Rx calcium acetate(phosphat bind) 667 1,334 mg (2 x 667 mg) PO TIDM 90 01/29/25 04/20/25 Rx mg capsule days #540 caps cholecalciferol (vitamin D3) 125 125 mcg PO QAM #90 tabs 01/29/25 04/20/25 Rx mcg (5,000 unit) tablet Medical Marijuana 1 dose PO DIRECTED PRN Other 03/14/25 04/15/25 History clonidine HCl 0.3 mg tablet 0.3 mg PO DAILY #30 tabs 04/06/25 04/15/25 Rx prochlorperazine maleate 10 mg 10 mg PO Q8H PRN nausea and 04/15/25 Rx tablet (Compazine) vomiting 5 days #15 tabs clonidine 0.3 mg/24 hr weekly 0.3 mg transdermal Q7D 04/17/25 04/20/25 History transdermal patch ketoconazole 2 % topical cream 1 applic topical .every other day 04/17/25 04/20/25 History PRN Rash labetalol 200 mg tablet 400 mg PO BID 04/17/25 04/20/25 History losartan 50 mg tablet 50 mg PO BID 04/17/25 04/20/25 History minoxidil 2.5 mg tablet 5 mg (2 x 2.5 mg) PO DAILY #30 tabs 04/17/25 04/17/25 Rx sertraline 25 mg tablet 25 mg PO DAILY #30 tabs 04/17/25 04/20/25 Rx torsemide 20 mg tablet 40 mg PO BID 04/17/25 04/20/25 History Patient History Medical History Hx of metabolic acidosis Anticoagulated on Coumadin pt states he has not been taking his Coumadin since apprx mid January 2025 [facility] [place] [facility] //mon History of postoperative nausea and vomiting Hx of deep venous thrombosis 01/2024 > right arm > was on warfarin > now DC'ed Cardiac murmur Anemia FSGS (focal segmental glomerulosclerosis) Generalized anxiety disorder Thrombophilia End stage renal disease follows with Dr. Mcdermott - HD 3x per week:[facility] in [place] > //mon CKD (chronic kidney disease) Hypertension recently added clonidine 0.[address] mcdermott Surgical History S/P hemodialysis catheter insertion (12/2024) perm cath for HD- right jugular S/P left knee arthroscopy H/O hernia repair Family History Mother Diabetes Grandfather (Maternal) Hypertension Other No family history of adverse response to anesthesia Denies family history of Ovarian cancer Prostate cancer Myocardial infarction Breast cancer Lung cancer Stroke Social History Smoking Status: Never smoker Tobacco Type: Smokeless Tobacco (Dip or Chew) Smoking End Date: quit 1 year ago; Second Hand Exposure: No; Do You Dip or Chew Tobacco: No; Tobacco Cessation Education Requested by Patient: No Hx Alcohol Use: No Hx Substance Use: No Preferred Language: Austrian Communication Ability: Effective Visual Impairment: No Limitations Hearing Ability: Normal Shoulder Puncher Required: No Beliefs That Will Affect Care: None marital status: Single Current Living Situation: Parent Current Living Situation Comment: lives at home with family current occupational status: employed current occupation: [employer] How many Children do You have: 0 Other Information That Helps Us Care for You: No Feels Safe at Home: Yes Safety Concerns: Feels Safe At This Time Childhood Exposure to Second-Hand Smoke: No caffeine: No Dental Care, Regularly: Yes Physical Activity Frequency: 5-6 Times per Week Seatbelt Use: always Sunscreen Use: No Assistive Devices: None Review of Systems Review of Systems: All systems reviewed & are unremarkable except as noted in HPI & below Physical Exam Constitutional: no acute distress Eyes: PERRL, conjunctivae normal, anicteric sclerae ENMT: Dried blood noticed on patient's teeth and dry oral mucous membranes. Neck: trachea midline, no thyromegaly (R IJ TCC with clean dry dressing in place) Respiratory: normal respiratory effort, lungs clear to auscultation Cardiovascular: RRR, no murmur, no edema Gastrointestinal (Abdomen): normal bowel sounds, soft, nontender, no hepatosplenomegaly Musculoskeletal: Extremities: no cyanosis and no clubbing Skin: no rashes, warm and dry Neurologic: no focal motor deficits Results & Data Results & Data Vital Signs (Past 12 Hours) Vital Signs Temp Pulse Pulse Pulse Resp BP BP 04/22/25 15:16 04/22/25 14:42 81 190/100 H 04/22/25 14:33 36.6 C 81 21 04/22/25 13:56 60 184/118 H 04/22/25 13:55 36.5 C 184/118 H 04/22/25 13:53 36.5 C 60 177/120 H 04/22/25 13:30 63 177/109 H 04/22/25 13:00 70 160/108 H 04/22/25 12:30 68 161/108 H 04/22/25 12:00 67 168/105 H 04/22/25 11:30 64 149/94 H 04/22/25 11:01 66 149/101 H 04/22/25 11:00 72 132/113 H 04/22/25 10:45 67 149/90 H 04/22/25 10:30 67 136/98 04/22/25 10:07 70 146/98 H 04/22/25 09:55 36.5 C 77 04/22/25 08:16 36.4 C L 78 20 BP Pulse Ox O2 Del Method 04/22/25 15:16 166/90 H 04/22/25 14:42 04/22/25 14:33 190/100 H 94 Room Air 04/22/25 13:56 04/22/25 13:55 04/22/25 13:53 04/22/25 13:30 04/22/25 13:00 04/22/25 12:30 04/22/25 12:00 04/22/25 11:30 04/22/25 11:01 04/22/25 11:00 04/22/25 10:45 04/22/25 10:30 04/22/25 10:07 04/22/25 09:55 04/22/25 08:16 166/97 H 93 Room Air PG Care Time/CCT Total # of Minutes Spent Total Time Spent with Patient: Total time spent is greater than 50% in coordination of care (as documented) at patient's floor/unit and/or counseling patient: Coding Level of Care Code 01388 INT INP/OBS CARE 2/55MIN Diagnoses Hemoptysis R04.2 Sinusitis J32.9 Thrombocytopenia D69.6
[2025-04-22] MEDS: AMOXICILLIN/CLAVULANATE 500 MG TAB PO SCH (18:26)
[2025-04-22] MEDS: METOCLOPRAMIDE HCL INJ 5 MG/ML 2 ML VIAL IV ONE (18:26)
[2025-04-22] MEDS: PANTOprazole 40 MG in DEXTROSE 5% MINI-B 100 ML IV SCH (18:35)
[2025-04-22] MEDS: OXYMETAZOLINE 0.05% 30 ML BTL SCH (18:35)
[2025-04-22] MEDS: SODIUM CHLORIDE 0.65% NA SOLN 45 ML (OCEAN) SCH (21:37)
[2025-04-22] MEDS: DOXYCYCLINE HYCLATE 100 MG CAP PO SCH (21:37)
[2025-04-23 07:02] LABS: Hematocrit (blood only) 27.1 % (42.0-52.0); Hemoglobin 9.3 g/dl (14.0-18.0); Mean Corpuscular Hemoglobin 30.4 pg (25.0-34.0); Mean Corpuscular Volume 88.6 fL (80.0-100.0); Platelet Count 94 K/uL (130-400); RDW Standard Deviation 41.1 fL (36.4-46.3); Red Blood Count 3.06 M/uL (4.70-6.10); White Blood Count 3.41 K/ul (4.8-10.8)
[2025-04-23 07:31] LABS: Anion Gap 12.0 (3-11); Blood Urea Nitrogen 45.0 mg/dl (6-23); Calcium 9.6 mg/dl (8.6-10.3); Carbon Dioxide 24.0 mmol/L (21-32); Chloride 99.0 mmol/L (98-107); Creatinine Clr Calc Pharmacy 10.9 ml/min; Glucose 95.0 mg/dl (70-99(Fasting)); Magnesium 2.5 mg/dl (1.7-2.4); Potassium 5.7 mmol/L (3.5-5.1); Sodium 135.0 mmol/L (136-145)
--- NOTE | 2025-04-23 09:07 | Nephrology Progress Note ---
Date of Service April 23, 2025 Assessment & Plan (1) ESRD on hemodialysis: Plan: * Outpatient HD Rx: TTS 3.75 Fx CorAL80 BFR 400/QD800 2K 2Ca 1Mg Na140 HCO3 40 EDW 77.5 kg * Mild hyperkalemia this am. One dose patiromer provided this am. Will provide 2 hr HD treatment * Monitor BMP, I&O. Monitor wt but question accuracy (2) Hypertensive emergency: Plan: * Patient reports adherence to prescribed antihypertensive therapy * Continue labetalol 800 mg TID, losartan 50 mg twice daily, amlodipine 10 mg daily, torsemide 40 mg twice daily and clonidine TTS-3 weekly. * Still requiring PRN hydralazine and labetalol * Spironolactone stopped due to hyperkalemia * Given early onset HTN and refractory nature of HTN concerned for underlying secondary cause * 04/04/25 fractionated plasma catecholamines were low. Repeat study ordered 04/20/25 * 04/04/25 cortisol - wnl (5.22) * Patient appears clinically euthyroid, 04/18 TSH mildly elevated * No vascular bruit. 04/08/25 renal doppler was negative for FLORA * Repeat urine free kappa/lambda light chain ratio * 04/21/25 echocardiogram: LVEF>70%, no RWMA, severe LVH. Cardiac amyloid was not reported * Clinically doubt sarcoidosis. Normal serum Ca. CXR without LAD. Will check vitamin D, serum OC * Serum renin and aldosterone are pending * Patient appears clinically euvolemic on exam. Despite being near EDW he remains hypertensive while on > 4 different antihypertensive agents. Given 60-90% sensitivity of renal artery doppler and persistent HTN will order CTA of renal arteries (90-96% sensitivity). Discussed w/ patient, family and primary service this am (3) PRES (posterior reversible encephalopathy syndrome): Plan: * BP control, anticonvulsant therapy Admission and Anticipated Discharge Date Admission Date: April 20, 2025 Subjective Mr. Ramos was evaluated in his hospital room this morning. JUAREZ is mildly improved. L lateral visual deficit is unchanged. No seizures overnight. Reports new onset dysgeusia Review of Systems Constitutional: no fever Eyes: no problem reported Ear, Nose, Mouth, Throat: no problem reported Respiratory: no cough and no dyspnea Cardiovascular: no chest pain and no edema Gastrointestinal: no abdominal pain, no nausea, no vomiting and no diarrhea/loose stools Genitourinary: no difficulty urinating Integumentary: no rash Neurologic: no seizure-like activity and no headache(s) Physical Exam Constitutional: + in distress (Headache); no acute distr ess Eyes: PERRL, conjunctivae normal, anicteric sclerae ENMT: external ear and nose normal, oropharynx normal Neck: trachea midline, no thyromegaly (R IJ TCC with clean dry dressing in place) Respiratory: normal respiratory effort, lungs clear to auscultation Cardiovascular: RRR, no murmur, no edema Gastrointestinal (Abdomen): normal bowel sounds, soft, nontender, no hepatosplenomegaly Musculoskeletal: Extremities: no cyanosis and no clubbing Skin: no rashes, warm and dry Neurologic: no focal motor deficits Results & Data Vital Signs (Past 12 Hours) Vital Signs Temp Pulse Pulse Resp BP Pulse Ox O2 Del Method 04/23/25 07:04 36.7 C 91 H 20 171/89 H 94 Room Air 04/23/25 02:25 36.6 C 86 18 172/91 H 93 Room Air 04/22/25 23:38 85 04/22/25 22:23 36.6 C 81 18 164/89 H 94 Room Air Laboratory Results Laboratory Results - last 24 hr 04/22/25 04/22/25 04/22/25 15:02 17:08 17:08 WBC Cancelled 6.35 RBC Cancelled Hgb Hct MCV MCH MCHC RDW Std Deviation RDW Coeff of Juliana Plt Count MPV Absolute Nucleated RBC Nucleated RBC % (auto) Platelet Estimate Peripher Smr Path Cons PT INR APTT PTT Ratio Sodium Potassium Chloride Carbon Dioxide Anion Gap BUN Creatinine Est Cr Clr Drug Dosing eGFR BUN/Creatinine Ratio Glucose Calcium Phosphorus Magnesium Angiotensin Convert Enz Renin Pending Renin Activity Pending Aldosterone Pending Aldosterone/Renin Ratio Pending Vitamin B12 25-OH Vitamin D Total Folate Anaplasma Smear A. phagocytophilum DNA Babesia Smear Babesia microti DNA PCR Blood Type Antibody Screen 04/22/25 04/22/25 04/22/25 17:08 17:08 17:08 WBC RBC 3.02 L Hgb Cancelled 9.0 L Hct Cancelled 26.4 L MCV Cancelled MCH MCHC RDW Std Deviation RDW Coeff of Juliana Plt Count MPV Absolute Nucleated RBC Nucleated RBC % (auto) Platelet Estimate Peripher Smr Path Cons PT INR APTT PTT Ratio Sodium Potassium Chloride Carbon Dioxide Anion Gap BUN Creatinine Est Cr Clr Drug Dosing eGFR BUN/Creatinine Ratio Glucose Calcium Phosphorus Magnesium Angiotensin Convert Enz Renin Renin Activity Aldosterone Aldosterone/Renin Ratio Vitamin B12 25-OH Vitamin D Total Folate Anaplasma Smear A. phagocytophilum DNA Babesia Smear Babesia microti DNA PCR Blood Type Antibody Screen 04/22/25 04/22/25 04/22/25 17:08 17:08 17:08 WBC RBC Hgb Hct MCV 87.4 MCH Cancelled 29.8 MCHC Cancelled 34.1 RDW Std Deviation Cancelled RDW Coeff of Juliana Plt Count MPV Absolute Nucleated RBC Nucleated RBC % (auto) Platelet Estimate Peripher Smr Path Cons PT INR APTT PTT Ratio Sodium Potassium Chloride Carbon Dioxide Anion Gap BUN Creatinine Est Cr Clr Drug Dosing eGFR BUN/Creatinine Ratio Glucose Calcium Phosphorus Magnesium Angiotensin Convert Enz Renin Renin Activity Aldosterone Aldosterone/Renin Ratio Vitamin B12 25-OH Vitamin D Total Folate Anaplasma Smear A. phagocytophilum DNA Babesia Smear Babesia microti DNA PCR Blood Type Antibody Screen 04/22/25 04/22/25 04/22/25 17:08 17:08 17:08 WBC RBC Hgb Hct MCV MCH MCHC RDW Std Deviation 41.1 RDW Coeff of Juliana Cancelled 13.1 Plt Count Cancelled 89 L MPV Cancelled Absolute Nucleated RBC Nucleated RBC % (auto) Platelet Estimate Peripher Smr Path Cons PT INR APTT PTT Ratio Sodium Potassium Chloride Carbon Dioxide Anion Gap BUN Creatinine Est Cr Clr Drug Dosing eGFR BUN/Creatinine Ratio Glucose Calcium Phosphorus Magnesium Angiotensin Convert Enz Renin Renin Activity Aldosterone Aldosterone/Renin Ratio Vitamin B12 25-OH Vitamin D Total Folate Anaplasma Smear A. phagocytophilum DNA Babesia Smear Babesia microti DNA PCR Blood Type Antibody Screen 04/22/25 04/23/25 04/23/25 17:08 05:58 08:29 WBC 3.41 L RBC 3.06 L Hgb 9.3 L Hct 27.1 L MCV 88.6 MCH 30.4 MCHC 34.3 RDW Std Deviation 41.1 RDW Coeff of Juliana 12.6 Plt Count 94 L MPV 12.3 11.5 Absolute Nucleated RBC Cancelled Nucleated RBC % (auto) Cancelled Platelet Estimate Cancelled Peripher Smr Path Cons Pending PT 10.5 INR 1.0 APTT 26 PTT Ratio 1.0 Sodium 135 L Potassium 5.7 H Chloride 99 Carbon Dioxide 24 Anion Gap 12 H BUN 45 H D Creatinine 11.94 H* D Est Cr Clr Drug Dosing 10.9 eGFR 5.64 BUN/Creatinine Ratio 3.8 L Glucose 95 Calcium 9.6 Phosphorus 7.0 H Magnesium 2.5 H Angiotensin Convert Enz Pending Renin Renin Activity Aldosterone Aldosterone/Renin Ratio Vitamin B12 Pending 25-OH Vitamin D Total 27.3 Folate Pending Anaplasma Smear See Comment A. phagocytophilum DNA Pending Babesia Smear See Comment Babesia microti DNA PCR Pending Blood Type AB Positive Antibody Screen NEGATIVE PG Care Time/CCT Total # of Minutes Spent Total Time Spent with Patient: Total time spent is greater than 50% in coordination of care (as documented) at patient's floor/unit and/or counseling patient: Coding Level of Care Code 94921 SUB INP/OBS CARE 3/50MIN Diagnoses ESRD on hemodialysis N18.6; Z99.2 Hypertensive emergency I16.1 PRES (posterior reversible encephalopathy syndrome) I67.83
[2025-04-23 09:41] LABS: Folate (Folic Acid),Ser orPlas 8.01 ng/ml (>5.38)
[2025-04-23 09:42] LABS: Vitamin B12 554.0 pg/ml (180-914)
--- NOTE | 2025-04-23 09:52 | Neurology Progress Note ---
Date of Service April 23, 2025 Assessment & Plan (1) Intractable headache: Admission and Anticipated Discharge Date Admission Date: April 20, 2025 Subjective pt with dull frontal headache. no new deficits. Results & Data Vital Signs (Past 12 Hours) Vital Signs Temp Pulse Pulse Resp BP Pulse Ox O2 Del Method 04/23/25 07:04 36.7 C 91 H 20 171/89 H 94 Room Air 04/23/25 02:25 36.6 C 86 18 172/91 H 93 Room Air 04/22/25 23:38 85 04/22/25 22:23 36.6 C 81 18 164/89 H 94 Room Air Exam (Neuro) Physical Exam: Neuro: Mental: AOx4, fluent speech, normal comprehension, no apraxia, no neglect CN: Full EOM, symmetric face, Motor: No abnormal movements Impression: 20 yo male with PRES and HTN urgency in setting of ESRD. Likely having tension type headache from lack of sleep, HTN urgency, stress. Recommendations: ok with nurtec 75mg po QOD strict BP control can also try IV solumedrol 250mg x1 and po prednisone mattie call again if new question Chart reviewed I have spent more than 50% educating patient about potential diagnosis and neurological evaluation and coordinating care with patient's treatment team. Total time spent (including chart review and coordination of care): 35 min (this includes chart review). PG Care Time/CCT Total # of Minutes Spent Total Time Spent with Patient: Total time spent is greater than 50% in coordination of care (as documented) at patient's floor/unit and/or counseling patient: Coding Level of Care Code 38720 SUB INP/OBS CARE 2/35MIN Diagnoses Acute intractable headache, unspecified headache type R51.9 Headache type: unspecified Headache chronicity pattern: acute headache (1) Intractable headache Headache type: unspecified Headache chronicity pattern: acute headache Qualified Code(s): R51.9 - Headache, unspecified
[2025-04-23] MEDS ORDERED: SODIUM CHLORIDE 0.9% 1,000 ML IV PRN (10:06)
--- NOTE | 2025-04-23 11:11 | Hospitalist Progress Note ---
Date of Service April 23, 2025 Assessment & Plan (1) Seizure: (2) PRES (posterior reversible encephalopathy syndrome): (3) ESRD on hemodialysis: (4) Intractable headache: (5) Severe uncontrolled hypertension: (6) Constipation: (7) Thrombocytopenia: (8) Hyperkalemia: (9) FSGS (focal segmental glomerulosclerosis): (10) Hx of deep venous thrombosis: Plan 20yo male - ESRD on HD due to FSGN - presented with two witnessed seizures. He had a seizure during a prior admission as well thought 2nd to PRES. #PRES with seizures - -MRI brain c/w PRES; no strokes seen -small area right frontoparietal junction abnormality that could be small acute or subacute infarct vs post seizure; latter favored by neurology -Triggers of PRES - HTN? ESRD/CKD? underlying autoimmune disease? combo of factors? -continue BP control; appreciate nephrology assistance -continue keppra IV 1gm daily -will need keppra for at least 3 months -of note - previous NHUNG, ANCA, etc all negative; check a CRP -EEG negative for seizure focus -PRES likely cause of visual complaints -appreciate neuro assistance #Severe uncontrolled hypertension - -ongoing despite numerous BP meds -secondary causes of HTN highly suspected but thus far nothing found -CTA renal arteries ordered by Dr Bonner from nephrology -renin/mynor levels pending -catecholamines negative about 2 weeks ago but metanephrines are pending -anti-hypertensive med regimen: -Clonidine patch 0.3mg daily -Labetalol 400mg tid -Losartan 50mg po BID -Amlodipine 10mg po daily -Torsemide 40mg po BID -added spironolactone 2 days ago but with hyperkalemia will HOLD -Labetalol 10mg IV q 4 hours as needed for SBP > 170 -Dr Bonner to perform another HD session today # epistaxis vs hemoptysis - -by report coughed up 2-3 Tbsp marleen blood -s/p pulmonary consultation by Dr. Vogel -- hemoptysis NOT suspected; upper respiratory/sinus suspected -empiric Augmentin for possible sinusitis - day #2 of such -Dr. Vogel added doxycycline in case of tickborne illness; day #2 of such; send Anaplasmosis DNA #Intractable headache - -2nd to PRES? -2nd to uncontrolled HTN? both issues are connected... -ongoing despite IV pain meds, dexamethasone, attempts to control BP, reglan, IV depakote -imaging w/o ICH -consider MRV - r/o sinus thrombosis -no evidence of meningitis on examination -corresponded with Dr Valle from neurology who will re-eval today -will try [facility] ODT - will call to his outpatient pharmacy; family to order picker/assembler; once here will administer QOD -consider additional IV steroids #ESRD secondary to FSGS on HD - -Continue Phoslo -to have HD session today, then again tomorrow -Nephrology consultation appreciated #Hepatosplenomegaly - -etiology? -viral? tick-borne infection? -metabolic disorder? -other? -in light of severe LVH/cardiomegaly (which could be 2nd to severely uncontrolled HTN) - infiltrative disease such as amyloid? -kappa/lambda light chains pending -recent ferritin and transferrin saturation not elevated, thus hemochromatosis unlikely -r/o sarcoidosis - OC level pending -ultimately needs cardiac MRI for further information #Anxiety/Depression - -Continue Sertraline 25mg po daily -no appetite and trouble sleeping - prior attending added mirtazapine 15 mg HS #Thrombocytopenia with leukopenia - -etiology uncertain -viral? tick-borne? autoimmune disease? other? -check respiratory bioFire -consider [place] testing -NHUNG negative earlier in March -CBC in am #constipation - -add miralax #hyperkalemia - -HOLD spironolactone -patiromer x 1 -extra HD session today #DVT ppx - -SCDs -stopped SQ heparin 04/22 2nd to low platelets care d/w Dr Bonner care d/w Dr Valle pt's mother/grandmother updated at bedside very complex care coordination numerous issues addressed today total visit time about 80 minutes today including Rx of hyperkalemia, discussions with consultants, calling in [facility], etc. Admission and Anticipated Discharge Date Admission Date: April 20, 2025 Subjective patient resting in bed during the visit pt's mother & grandmother both at bedside he reports numerous issues including - 1. constipation - no BM while hospitalized; despite such no abd pain or N/V 2. ongoing headache - frontal/left eye region, some photophobia; no long- standing history of migraines, although mother has migraines 3. some ongoing visual disturbance in the left eye 4. states his cognition/thinking are "off"; can't think of things to say at times, etc. 5. continues with fatigue/weakness 6. dizzy with standing/sitting up (no vertigo, however) 7. did have mild URI symptoms last week along with chills; but those symptoms are resolved; works at [employer], several colleagues sick with URIs recently tele overnight wnl Review of Systems Review of Systems: cv - no chest pain, no edema, no orthopnea pulm - no dyspnea at rest, no cough GI - no vomiting, no abd pain musculo - denies myalgias neuro - no focal motor deficits family history - mother/grandmother with thyroid disease Physical Exam Physical Exam: gen - lying in bed, NAD, pleasant eyes - horizontal nystagmus with leftward/rightward gaze, PERRL mouth - MMM, no lesions neck - no JVD chest - HD catheter clean heart - RRR, s1 s2, no murmur lungs - CTA b/l abd - soft, NT, ND, BS+, spleen tip palpable, liver not palpable ext - no edema, pulses 2+ b/l skin - no rash, tattoos neuro - finger/nose/finger maneuver w/o ataxia; strength 5/5 x 4 exts; speech clear/fluent; no facial droop Results & Data Results & Data Vital Signs (Past 12 Hours) Vital Signs Temp Pulse Pulse Resp BP Pulse Ox O2 Del Method 04/23/25 07:04 36.7 C 91 H 20 171/89 H 94 Room Air 04/23/25 02:25 36.6 C 86 18 172/91 H 93 Room Air 04/22/25 23:38 85 Laboratory Results Laboratory Results - last 24 hr 04/22/25 04/22/25 04/22/25 15:02 17:08 17:08 WBC Cancelled 6.35 RBC Cancelled Hgb Hct MCV MCH MCHC RDW Std Deviation RDW Coeff of Juliana Plt Count MPV Absolute Nucleated RBC Nucleated RBC % (auto) Platelet Estimate Peripher Smr Path Cons PT INR APTT PTT Ratio Sodium Potassium Chloride Carbon Dioxide Anion Gap BUN Creatinine Est Cr Clr Drug Dosing eGFR BUN/Creatinine Ratio Glucose Calcium Phosphorus Magnesium C-Reactive Protein Angiotensin Convert Enz Renin Pending Renin Activity Pending Aldosterone Pending Aldosterone/Renin Ratio Pending Vitamin B12 25-OH Vitamin D Total Folate Anaplasma Smear A. phagocytophilum DNA Babesia Smear Babesia microti DNA PCR Blood Type Antibody Screen 04/22/25 04/22/25 04/22/25 17:08 17:08 17:08 WBC RBC 3.02 L Hgb Cancelled 9.0 L Hct Cancelled 26.4 L MCV Cancelled MCH MCHC RDW Std Deviation RDW Coeff of Juliana Plt Count MPV Absolute Nucleated RBC Nucleated RBC % (auto) Platelet Estimate Peripher Smr Path Cons PT INR APTT PTT Ratio Sodium Potassium Chloride Carbon Dioxide Anion Gap BUN Creatinine Est Cr Clr Drug Dosing eGFR BUN/Creatinine Ratio Glucose Calcium Phosphorus Magnesium C-Reactive Protein Angiotensin Convert Enz Renin Renin Activity Aldosterone Aldosterone/Renin Ratio Vitamin B12 25-OH Vitamin D Total Folate Anaplasma Smear A. phagocytophilum DNA Babesia Smear Babesia microti DNA PCR Blood Type Antibody Screen 04/22/25 04/22/25 04/22/25 17:08 17:08 17:08 WBC RBC Hgb Hct MCV 87.4 MCH Cancelled 29.8 MCHC Cancelled 34.1 RDW Std Deviation Cancelled RDW Coeff of Juliana Plt Count MPV Absolute Nucleated RBC Nucleated RBC % (auto) Platelet Estimate Peripher Smr Path Cons PT INR APTT PTT Ratio Sodium Potassium Chloride Carbon Dioxide Anion Gap BUN Creatinine Est Cr Clr Drug Dosing eGFR BUN/Creatinine Ratio Glucose Calcium Phosphorus Magnesium C-Reactive Protein Angiotensin Convert Enz Renin Renin Activity Aldosterone Aldosterone/Renin Ratio Vitamin B12 25-OH Vitamin D Total Folate Anaplasma Smear A. phagocytophilum DNA Babesia Smear Babesia microti DNA PCR Blood Type Antibody Screen 04/22/25 04/22/25 04/22/25 17:08 17:08 17:08 WBC RBC Hgb Hct MCV MCH MCHC RDW Std Deviation 41.1 RDW Coeff of Juliana Cancelled 13.1 Plt Count Cancelled 89 L MPV Cancelled Absolute Nucleated RBC Nucleated RBC % (auto) Platelet Estimate Peripher Smr Path Cons PT INR APTT PTT Ratio Sodium Potassium Chloride Carbon Dioxide Anion Gap BUN Creatinine Est Cr Clr Drug Dosing eGFR BUN/Creatinine Ratio Glucose Calcium Phosphorus Magnesium C-Reactive Protein Angiotensin Convert Enz Renin Renin Activity Aldosterone Aldosterone/Renin Ratio Vitamin B12 25-OH Vitamin D Total Folate Anaplasma Smear A. phagocytophilum DNA Babesia Smear Babesia microti DNA PCR Blood Type Antibody Screen 04/22/25 04/23/25 04/23/25 17:08 05:58 08:29 WBC 3.41 L RBC 3.06 L Hgb 9.3 L Hct 27.1 L MCV 88.6 MCH 30.4 MCHC 34.3 RDW Std Deviation 41.1 RDW Coeff of Juliana 12.6 Plt Count 94 L MPV 12.3 11.5 Absolute Nucleated RBC Cancelled Nucleated RBC % (auto) Cancelled Platelet Estimate Cancelled Peripher Smr Path Cons Pending PT 10.5 INR 1.0 APTT 26 PTT Ratio 1.0 Sodium 135 L Potassium 5.7 H Chloride 99 Carbon Dioxide 24 Anion Gap 12 H BUN 45 H D Creatinine 11.94 H* D Est Cr Clr Drug Dosing 10.9 eGFR 5.64 BUN/Creatinine Ratio 3.8 L Glucose 95 Calcium 9.6 Phosphorus 7.0 H Magnesium 2.5 H C-Reactive Protein 1.12 H Angiotensin Convert Enz Pending Renin Renin Activity Aldosterone Aldosterone/Renin Ratio Vitamin B12 554 25-OH Vitamin D Total 27.3 Folate 8.01 Anaplasma Smear See Comment A. phagocytophilum DNA Pending Babesia Smear See Comment Babesia microti DNA PCR Pending Blood Type AB Positive Antibody Screen NEGATIVE PG Care Time/CCT Total # of Minutes Spent Total Time Spent with Patient: Total time spent is greater than 50% in coordination of care (as documented) at patient's floor/unit and/or counseling patient: Prolonged Care Time Prolonged Care Time: Yes Total Prolonged Care Time: 80 Coding Level of Care Code 60863 SUB INP/OBS CARE 3/50MIN (25 - SIGNIFICANT, SEPARATELY IDENTIFIABLE ) Diagnoses Seizure R56.9 PRES (posterior reversible encephalopathy syndrome) I67.83 ESRD on hemodialysis N18.6; Z99.2 Acute intractable headache, unspecified headache type R51.9 Headache chronicity pattern: acute headache Headache type: unspecified Severe uncontrolled hypertension I10 Constipation K59.00 Thrombocytopenia D69.6 Hyperkalemia E87.5 FSGS (focal segmental glomerulosclerosis) N05.1 Hx of deep venous thrombosis Z86.718 Additional Codes Prolonged Care Time - Prolonged Care Time: Yes ([id number]) (4) Intractable headache Headache chronicity pattern: acute headache Headache type: unspecified Qualified Code(s): R51.9 - Headache, unspecified
[2025-04-23] MEDS: PATIROMER CALCIUM SORBITEX 8.4 GM PACK PO ONE (11:45)
[2025-04-23] MEDS: OPTIRAY 320 125ml IV ONE (15:09)
[2025-04-23] MEDS: POLYETHYLENE (MIRALAX) 17 GM PACK PO SCH (15:25)
--- NOTE | 2025-04-23 16:16 | CT Scan Report ---
CT angio abdomen w con CLINICAL HISTORY: Attention to renal arteries AFTER HD TODAY . Evaluate for renal artery stenosis. COMPARISON STUDY: 04/09/2025 FINDINGS: There are trace bilateral pleural effusions. ABDOMEN: There is stable hepatosplenomegaly with the spleen measuring 19 cm. Gallbladder, pancreas, a nd adrenal glands are unremarkable. Kidneys show no hydronephrosis. Stable small cyst left kidney. Vi sualized bowel shows no inflammation or obstruction. No ascites. No enlarged adenopathy. CTA: There is no abdominal aortic aneurysm or significant aortic luminal narrowing. Celiac, superior mesenteric, bilateral renal, and inferior mesenteric arteries are widely patent. Common iliac arterie s are widely patent. Osseous structures: No acute osseous findings. IMPRESSION: Widely patent renal arteries. No evidence of renal artery stenosis. Otherwise as describ ed. ACT 112: Negative or not required by law. Electronically signed by: Kaleb Pan M.D. 04/23/2025 4:13 PM
[2025-04-23 18:17] LABS: Chlamydia pneumoniae PCR Not Detected (NotDetected); Coronavirus 229E PCR Not Detected (NotDetected); Coronavirus CoV-2 (COVID19)PCR Not Detected (NotDetected); Coronavirus HKU1 PCR Not Detected (NotDetected); Coronavirus NL63 PCR Not Detected (NotDetected); Coronavirus OC43PCR Not Detected (NotDetected); Human Metapneumovirus PCR Not Detected (NotDetected); Parainfluenza Virus 1 PCR Not Detected (NotDetected); Parainfluenza Virus 2 PCR Not Detected (NotDetected); Parainfluenza Virus 3 PCR Not Detected (NotDetected); Parainfluenza Virus 4 PCR Not Detected (NotDetected); Respiratory Syncytial VirusPCR Not Detected (NotDetected); Rhinovirus/Enterovirus PCR Not Detected (NotDetected)
--- NOTE | 2025-04-24 06:10 | Electrocardiogram Report ---
Test Reason : Blood Pressure : */* mmHG Vent. Rate : 79 BPM Atrial Rate : 79 BPM P-R Int : 146 ms QRS Dur : 104 ms QT Int : 408 ms P-R-T Axes : 68 69 59 degrees QTcB Int : 467 ms Normal sinus rhythm Normal ECG When compared with ECG of 19-Apr-2025 22:11, QT has shortened Confirmed by Robert Ritter ([id number]) on 04/24/2025 6:10:25 AM Referred By: REFERRED SELF Confirmed By: Robert Ritter
[2025-04-24] MEDS ORDERED: SODIUM CHLORIDE 0.9% 1,000 ML IV PRN (07:00)
[2025-04-24 08:27] LABS: Hematocrit (blood only) 26.4 % (42.0-52.0); Hemoglobin 9.1 g/dl (14.0-18.0); Immature Granulocytes # (auto) 0.00 K/uL (0.01-0.20); Immature Granulocytes % (auto) 0.0 %; Mean Corpuscular Hemoglobin 29.9 pg (25.0-34.0); Mean Corpuscular Volume 86.8 fL (80.0-100.0); Platelet Count 97 K/uL (130-400); RDW Standard Deviation 41.3 fL (36.4-46.3); Red Blood Count 3.04 M/uL (4.70-6.10); White Blood Count 4.36 K/ul (4.8-10.8)
[2025-04-24 08:53] LABS: Anion Gap 10.0 (3-11); Blood Urea Nitrogen 49.0 mg/dl (6-23); Calcium 9.7 mg/dl (8.6-10.3); Carbon Dioxide 25.0 mmol/L (21-32); Chloride 101.0 mmol/L (98-107); Creatinine Clr Calc Pharmacy 11.4 ml/min; Glucose 107.0 mg/dl (70-99(Fasting)); Magnesium 2.4 mg/dl (1.7-2.4); Potassium 5.0 mmol/L (3.5-5.1); Sodium 136.0 mmol/L (136-145)
--- NOTE | 2025-04-24 08:55 | Nephrology Progress Note ---
Date of Service April 24, 2025 Assessment & Plan (1) ESRD on hemodialysis: Plan: * Outpatient HD Rx: TTS 3.75 Fx CorAL80 BFR 400/QD800 2K 2Ca 1Mg Na140 HCO3 40 EDW 77.5 kg * HD today. Attempt continued UF, however, patient appears to be near EDW * Monitor BMP, I&O. Monitor wt but question accuracy (2) Hypertensive emergency: Plan: * Patient reports adherence to prescribed antihypertensive therapy as outpatient * Continue labetalol 800 mg TID, amlodipine 10 mg daily, torsemide 40 mg twice daily and clonidine TTS-3 weekly. * Has not required PRN IV hydralazine or labetalol over last 24 hours * Given early onset HTN and refractory nature of HTN concerned for underlying secondary cause * 04/04/25 fractionated plasma catecholamines were low. Repeat study ordered 04/20/25 * 04/04/25 cortisol - wnl (5.22) * Patient appears clinically euthyroid, 04/18 TSH mildly elevated * No vascular bruit. 04/08/25 renal doppler was negative for FLORA * 04/23/25 CTA of abdomen was negative for FLORA * Urine free kappa/lambda light chain ratio - pending * 04/21/25 echocardiogram: LVEF>70%, no RWMA, severe LVH. Cardiac amyloid was not reported * Clinically doubt sarcoidosis. Normal serum Ca. CXR without LAD. 04/18 vitamin D - wnl. Serum OC - pending * Serum renin and aldosterone are pending * Patient appears clinically euvolemic on exam. Will continue to challenge EDW on HD and order orthostatic vitals for next 48 hours * BP remains elevated. Will substitute spironolactone for losartan. Continue other medications as ordered. Monitor BP closely (3) PRES (posterior reversible encephalopathy syndrome): Plan: * BP control, anticonvulsant therapy Admission and Anticipated Discharge Date Admission Date: April 20, 2025 Subjective Mr. Ramos was evaluated during HD this morning. JUAREZ persists. L lateral visual deficit is unchanged. No seizures overnight. Reports fatigue, orthostasis when ambulating to BR this morning Review of Systems Constitutional: no fever Eyes: no problem reported Ear, Nose, Mouth, Throat: no problem reported Respiratory: no cough and no dyspnea Cardiovascular: no chest pain and no edema Gastrointestinal: no abdominal pain, no nausea, no vomiting and no diarrhea/loose stools Genitourinary: no difficulty urinating Integumentary: no rash Neurologic: no seizure-like activity and no headache(s) Physical Exam Constitutional: + in distress (Headache); no acute distr ess Eyes: PERRL, conjunctivae normal, anicteric sclerae ENMT: external ear and nose normal, oropharynx normal Neck: trachea midline, no thyromegaly (R IJ TCC with clean dry dressing in place) Respiratory: normal respiratory effort, lungs clear to auscultation Cardiovascular: RRR, no murmur, no edema Gastrointestinal (Abdomen): normal bowel sounds, soft, nontender, no hepatosplenomegaly Musculoskeletal: Extremities: no cyanosis and no clubbing Skin: no rashes, warm and dry Neurologic: no focal motor deficits Results & Data Vital Signs (Past 12 Hours) Vital Signs Temp Pulse Pulse Resp BP BP Pulse Ox 04/24/25 08:09 36.3 C L 79 18 173/105 H 189/103 H 95 04/24/25 03:00 36.5 C 71 18 170/90 H 97 04/23/25 23:04 94 H 04/23/25 22:38 36.5 C 77 18 168/95 H 95 O2 Del Method 04/24/25 08:09 Room Air 04/24/25 03:00 Room Air 04/23/25 23:04 04/23/25 22:38 Room Air Laboratory Results Laboratory Results - last 24 hr 04/22/25 04/23/25 04/23/25 17:08 05:58 08:29 WBC RBC Hgb Hct MCV MCH MCHC RDW Std Deviation RDW Coeff of Juliana Plt Count MPV Immature Gran % (Auto) Neut % (Auto) Lymph % (Auto) [place] % (Auto) Eos % (Auto) Baso % (Auto) Neut # (Auto) Lymph # (Auto) [place] # (Auto) Eos # (Auto) Baso # (Auto) Immature Gran # (Auto) Peripher Smr Path Cons Sodium Potassium Chloride Carbon Dioxide Anion Gap BUN Creatinine Est Cr Clr Drug Dosing eGFR BUN/Creatinine Ratio Glucose Calcium Phosphorus Magnesium C-Reactive Protein 1.12 H Vitamin B12 554 Folate 8.01 Adenovirus (PCR) B. pertussis DNA (PCR) B.parapertussis DNA PCR C. pneumoniae DNA (PCR) Coronavirus OC43 (PCR) Coronavirus HKU1 (PCR) Coronavirus 229E (PCR) SARS-CoV-2 (PCR) Coronavirus NL63 (PCR) Monoscreen Human Metapneumovir PCR Influenza Type A (PCR) Influenza Type B (PCR) M. pneumoniae (PCR) Parainfluenza 1 (PCR) Parainfluenza 2 (PCR) Parainfluenza 3 (PCR) Parainfluenza 4 (PCR) RSV (PCR) Entero/Rhino (PCR) 04/23/25 04/24/25 Unknown 07:54 WBC 4.36 L RBC 3.04 L Hgb 9.1 L Hct 26.4 L MCV 86.8 MCH 29.9 MCHC 34.5 RDW Std Deviation 41.3 RDW Coeff of Juliana 13.2 Plt Count 97 L MPV 11.4 Immature Gran % (Auto) 0.0 Neut % (Auto) 50.9 Lymph % (Auto) 38.5 [place] % (Auto) 5.5 Eos % (Auto) 3.7 Baso % (Auto) 1.4 Neut # (Auto) 2.22 Lymph # (Auto) 1.68 [place] # (Auto) 0.24 Eos # (Auto) 0.16 Baso # (Auto) 0.06 Immature Gran # (Auto) 0.00 L Peripher Smr Path Cons Sodium 136 Potassium 5.0 Chloride 101 Carbon Dioxide 25 Anion Gap 10 BUN 49 H Creatinine 11.44 H* D Est Cr Clr Drug Dosing 11.4 eGFR 5.93 BUN/Creatinine Ratio 4.3 L Glucose 107 H Calcium 9.7 Phosphorus 7.3 H Magnesium 2.4 C-Reactive Protein Vitamin B12 Folate Adenovirus (PCR) Not Detected B. pertussis DNA (PCR) Not Detected B.parapertussis DNA PCR Not Detected C. pneumoniae DNA (PCR) Not Detected Coronavirus OC43 (PCR) Not Detected Coronavirus HKU1 (PCR) Not Detected Coronavirus 229E (PCR) Not Detected SARS-CoV-2 (PCR) Not Detected Coronavirus NL63 (PCR) Not Detected Monoscreen Pending Human Metapneumovir PCR Not Detected Influenza Type A (PCR) Not Detected Influenza Type B (PCR) Not Detected M. pneumoniae (PCR) Not Detected Parainfluenza 1 (PCR) Not Detected Parainfluenza 2 (PCR) Not Detected Parainfluenza 3 (PCR) Not Detected Parainfluenza 4 (PCR) Not Detected RSV (PCR) Not Detected Entero/Rhino (PCR) Not Detected PG Care Time/CCT Total # of Minutes Spent Total Time Spent with Patient: Total time spent is greater than 50% in coordination of care (as documented) at patient's floor/unit and/or counseling patient: Coding Level of Care Code 86665 SUB INP/OBS CARE 3/50MIN Diagnoses ESRD on hemodialysis N18.6; Z99.2 Hypertensive emergency I16.1 PRES (posterior reversible encephalopathy syndrome) I67.83
[2025-04-24 09:39] LABS: EBV Early Antigen IgG Ab Positive (Negative); EBV Early Antigen IgG Quant 17.5 U/mL (< 9.0); EBV IgG Quant 338.0 U/mL (< 18.0); EBV Nuclear Antigen IgG Ab Positive; EBV Nuclear Antigen IgG Quant 411.0 U/mL (< 18.0)
[2025-04-24 09:41] LABS: EBV IgM Quant < 10.0 U/mL (< 36.0)
[2025-04-24 10:28] LABS: Kappa 79.0 mg/dL (176-443); Lambda 47.0 mg/dL (91-240)
--- NOTE | 2025-04-24 12:00 | Pulmonology Progress Note ---
Date of Service April 24, 2025 Assessment & Plan (1) Hemoptysis: (2) Sinusitis: (3) Thrombocytopenia: (4) Pleural effusion: Plan -- Hemoptysis Resolved No blood in the phlegm since coming to the hospital PT/INR and PTT within normal limit --Small bilateral pleural effusion Likely secondary to end-stage renal disease Patient saturating well on room air No need for any intervention Plan: Hemoptysis has resolved Okay to resume heparin the next 24 hours if no recurrence No further recommendation from pulmonary perspective, will sign off Please call directly with any questions Please note the above document was generated using voice recognition software. It may contain grammatical, syntax or spelling errors.Any formal questions or concerns about the content, text or information contained within the body of this dictation should be directly addressed to the provider for clarification. Admission and Anticipated Discharge Date Admission Date: April 20, 2025 Subjective Patient seen and examined at bedside. No acute distress, no adverse events overnight Patient complains of dizziness manage changing position Has not coughed up anything for the last 24 hours. Denies any chest pain No shortness of breath Saturating well on room air Fair appetite, no nausea or vomiting Review of Systems 2 Review of Systems: All systems reviewed & are unremarkable except as noted in Subjective Physical Exam 2 Physical Exam: Constitutional: No acute distress HEENT: EOMI, PERRLA Respiratory system: Decreased air entry in the left lower side, no wheeze, no rhonchi, no crackles CVS: S1-S2 positive, no murmurs or gallops, right-sided permacath Abdomen: Soft, nontender, nondistended, positive bowel sounds x4 Extremities: +2 pulses bilaterally radialis/ dorsalis pedis, no cyanosis, no edema Neuro: Awake alert oriented x3 Psych: Normal mood and affect G/U: No Chow Skin: Tattoos appreciated all over the body Skin: no rashes, warm and dry Lymphatic: no cervical or axillary lymphadenopathy Results & Data Results & Data Vital Signs (Past 12 Hours) Vital Signs Temp Pulse Pulse Pulse Resp BP BP 04/24/25 11:30 75 153/90 H 04/24/25 11:00 71 158/88 H 04/24/25 10:30 74 165/101 H 04/24/25 10:00 79 187/86 H 04/24/25 09:30 77 188/115 H 04/24/25 09:26 74 187/74 H 04/24/25 09:19 36.5 C 74 04/24/25 08:09 36.3 C L 79 18 173/105 H 04/24/25 03:00 36.5 C 71 18 BP Pulse Ox O2 Del Method 04/24/25 11:30 04/24/25 11:00 04/24/25 10:30 04/24/25 10:00 04/24/25 09:30 04/24/25 09:26 04/24/25 09:19 04/24/25 08:09 189/103 H 95 Room Air 04/24/25 03:00 170/90 H 97 Room Air Laboratory Results 04/24/25 07:54 04/24/25 07:54 PG Care Time/CCT Total # of Minutes Spent Total Time Spent with Patient: Total time spent is greater than 50% in coordination of care (as documented) at patient's floor/unit and/or counseling patient: Coding Level of Care Code 53789 SUB INP/OBS CARE 2/35MIN Diagnoses Hemoptysis R04.2 Sinusitis J32.9 Thrombocytopenia D69.6 Pleural effusion J90
[2025-04-24] MEDS: HYDROmorphone INJ 0.5 MG/0.5 ML SYR IV STA (13:49)
--- NOTE | 2025-04-24 20:12 | Hospitalist Progress Note ---
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 MRI brain this admission with findings c/w PRES. He had a seizure during a prior admission in early March as well thought 2nd to PRES as MRI brain during that admission also c/w PRES. #PRES with seizures - -MRI brain c/w PRES; no strokes seen -small area right frontoparietal junction abnormality that could be small acute or subacute infarct vs post seizure; latter favored by neurology -Triggers of PRES - HTN? ESRD/CKD? underlying autoimmune disease? combo of factors? -BP control is paramount but has proven exceptionally difficult despite considerable efforts by nephrology; their assistance is much appreciated -continue keppra IV 1gm daily -will need keppra for at least 3 months -of note - previous NHUNG, ANCA, etc all negative; CRP low at 1.1 -EEG negative for seizure focus -PRES is the cause of his visual complaints -appreciate neuro assistance -spoke with neurology at [facility] as well as [facility] advised systolic BP goal to be <140 -they also recommended consideration of gabapentin or lyrica or similar for headache prophylaxis -they commented that neuro symptoms will persist as long as BPs are high #Severe uncontrolled hypertension - -ongoing despite numerous BP meds -secondary causes of HTN highly suspected but thus far nothing found -CTA renal arteries negative for FLORA -renin/mynor levels pending -catecholamines negative about 2 weeks ago but metanephrines are pending -TSH not c/w hyperthyroidism -he does not have obvious AIMEE -anti-hypertensive med regimen: -Clonidine patch 0.3mg daily -Labetalol 400mg tid -Losartan 50mg po BID -Amlodipine 10mg po daily -Torsemide 40mg po BID -added spironolactone 2 days ago but with hyperkalemia has been on HOLD -Labetalol 10mg IV q 4 hours as needed for SBP > 170 -best BP seen was post-HD today - 150s/100, but still with ongoing neuro symptoms -appreciate Dr Bonner's BP management; defer med changes to Dr Bonner # epistaxis vs hemoptysis - -by report coughed up 2-3 Tbsp marleen blood earlier this week -s/p pulmonary consultation by Dr. Vogel -- hemoptysis NOT suspected; upper respiratory/sinus source suspected -empiric Augmentin for possible sinusitis - day #3 of such -Dr. Vogel added doxycycline in case of tickborne illness; day #3 of such; sent Anaplasmosis DNA -likely that doxycycline will provide adequate sinus coverage thus will d/c augmentin #Intractable headache - -2nd to PRES/uncontrolled HTN -ongoing despite IV pain meds, dexamethasone, attempts to control BP, reglan, IV depakote, ativan, etc. -imaging w/o ICH -consider MRV - r/o sinus thrombosis -no evidence of meningitis on examination -will try Nurtec ODT - prescribed to his outpatient pharmacy, but prior auth needed; will ask [facility] Hospitalist Nurse Navigator to assist -use of steroids is controversial with PRES - some data available that it can help headache, some data that they can make PRES worse -will defer on steroids for now -will trial gabapentin 100mg BID as suggested by [facility] #ESRD secondary to FSGS on HD - -Continue Phoslo -s/p HD today -Nephrology consultation appreciated #Hepatosplenomegaly - -etiology? -viral? tick-borne infection? -metabolic disorder? -other? -in light of severe LVH/cardiomegaly (which could be 2nd to severely uncontrolled HTN) - infiltrative disease such as amyloid? -kappa/lambda light chains pending -recent ferritin and transferrin saturation not elevated, thus hemochromatosis unlikely -r/o sarcoidosis - OC level pending -ultimately needs cardiac MRI for further information #Anxiety/Depression - -Continue Sertraline 25mg po daily -no appetite and trouble sleeping - prior attending added mirtazapine 15 mg HS #Thrombocytopenia with leukopenia - -etiology uncertain -viral? tick-borne? autoimmune disease? other? -respiratory bioFire fully negative -EBV panel with +early antigen IgG - this is often + during active disease, but IgM is negative; if he has had mono it has probably been in the last few months -will send EBV PCR -CMV IgM/IgG pending -consider parvo -NHUNG negative earlier in March -CBC about every other day for stability #constipation - -added miralax #hyperkalemia - -HOLD spironolactone -patiromer x 1 yesterday along with HD session; improved today -BMP am #DVT ppx - -SCDs -stopped SQ heparin 04/22 2nd to low platelets and ?hemoptysis -consider resumption as he is at high risk of DVT/PE with limited activity, has had superficial thrombus in the past in one of his arms (took coumadin 1-2 years), etc care d/w Dr Bonner care d/w Dr Valle pt's mother updated at bedside summary of phone calls to outside hospitals, arranged via our transfer center: 1st call was to [facility]; spoke with Dr Eubanks (nephrology), Dr Vincent (hospitalist), and their on-call neurologist (I did not get her name) -they were hesitant to take Mr Ramos as they were concerned they may not have all home energy consultant supervisor services available to provide optimal care -they are medium sized hospital, but not fully tertiary care -thus, they declined his transfer 2nd call was to [facility]; spoke with Dr Jenise Spencer (nephrology), Dr Rajinder Sosa (neurology), and Dr Akbar King (hospitalist) -they agreed with our management of PRES, headaches, HTN, etc. -they did provide some guidance for management of his PRES/headaches -while they all agreed he was extremely medically complex, they felt that at this time there were no additional services they could offer which would differ from what is being given here at [facility] -we left things that if labs (that are currently pending) do not help shed light on his hepatosplenomegaly/abnormal CBC, if BPs are refractory to our treatments, if PRES symptoms do not improve, etc -- then I should call back within a few days -thus, [facility] declined transfer at this time patient made aware of the decline by both hospitals to accept him in transfer very complex care coordination and management spent approximately 100 minutes between multiple bedside visits, multiple phone calls to tertiary care centers, multiple calls/correspondences with our consultants, ordering tests, etc. Admission and Anticipated Discharge Date Admission Date: April 20, 2025 Subjective saw patient multiple times today first was during his HD session during dialysis he was very uncomfortable - had severe frontal headache, double vision, and visual disturbance in the left eye required multiple doses of IV dilaudid/ativan after seeing him on HD I spoke with Dr Bonner we discussed thoroughly his plan of care we were both in agreement that transfer to higher level of care at tertiary care center would be prudent at this point given his refractory HTN, refractory PRES symptoms, etc. following this phone call with Dr Bonner I spoke with patient and his family about transfer he hopes to have his renal transplant ultimately at [facility] and this was his first choice for transfer [facility] would be his 2nd choice subsequently had multiple phone calls with [facility] and [facility] - see assessment/plan section for details late in the day the patient's headache was improved and ocular symptoms were mildly improved while in HD had a scant amount of bloody mucous otherwise no hemoptysis tele overnight wnl Review of Systems Review of Systems: gen - no fevers or chills; ongoing fatigue/weakness/dizziness with standing & walking cv - no chest pain, no orthopnea pulm - no dyspnea GI - no N/V Physical Exam Physical Exam: saw patient while getting dialysis: gen - lying in bed, hooked up to HD machine, looks very uncomfortable eyes - horizontal nystagmus remains mouth - MMM neck - no JVD chest - HD catheter in place, hooked up to dialysis machine heart - RRR, s1 s2, no murmur lungs - CTA b/l abd - soft, NT, ND, BS+ ext - no edema, pulses 2+ b/l Results & Data Results & Data Vital Signs (Past 12 Hours) Vital Signs Temp Pulse Pulse Pulse Resp BP BP 04/24/25 19:42 36.7 C 83 18 04/24/25 17:09 36.7 C 77 18 04/24/25 14:32 75 16 159/99 H 04/24/25 13:19 36.9 C 70 155/104 H 04/24/25 13:00 70 155/83 H 04/24/25 12:30 68 157/92 H 04/24/25 12:00 71 160/95 H 04/24/25 11:30 75 153/90 H 04/24/25 11:00 71 158/88 H 04/24/25 10:30 74 165/101 H 04/24/25 10:00 79 187/86 H 04/24/25 09:30 77 188/115 H 04/24/25 09:26 74 187/74 H 04/24/25 09:19 36.5 C 74 BP Pulse Ox O2 Del Method 04/24/25 19:42 176/97 H 96 Room Air 04/24/25 17:09 154/100 H 96 Room Air 04/24/25 14:32 98 Room Air 04/24/25 13:19 04/24/25 13:00 04/24/25 12:30 04/24/25 12:00 04/24/25 11:30 04/24/25 11:00 04/24/25 10:30 04/24/25 10:00 04/24/25 09:30 04/24/25 09:26 04/24/25 09:19 Laboratory Results Laboratory Results - last 48 hr 04/20/25 04/20/25 04/23/25 08:30 08:36 05:58 WBC RBC Hgb Hct MCV MCH MCHC RDW Std Deviation RDW Coeff of Juliana Plt Count MPV Immature Gran % (Auto) Neut % (Auto) Lymph % (Auto) Hendricks % (Auto) Eos % (Auto) Baso % (Auto) Neut # (Auto) Lymph # (Auto) Hendricks # (Auto) Eos # (Auto) Baso # (Auto) Immature Gran # (Auto) Sodium Potassium Chloride Carbon Dioxide Anion Gap BUN Creatinine Est Cr Clr Drug Dosing eGFR BUN/Creatinine Ratio Glucose Calcium Phosphorus Magnesium Angiotensin Convert Enz 66 Plasma Metanephrine 50 Plasma Normetanephrine 25 Plas Total Metaneph 75 Tot Nocona/Lambda Ratio 1.68 Nocona Light Chain Anal 79 L Lambda Light Chain Anal 47 L EBV Capsid Ag IgG Ab EBV Caps Ag IgG Sig Str EBV Capsid Ag IgM Ab EBV Caps Ag IgM Sig Str EBV Early Antigen IgG EBV EA Signal Strength EBV Nuclear Antigen Ab EBV Nucl Ag IgG Sig Str EBV Interpretation Monoscreen 04/24/25 07:54 WBC 4.36 L RBC 3.04 L Hgb 9.1 L Hct 26.4 L MCV 86.8 MCH 29.9 MCHC 34.5 RDW Std Deviation 41.3 RDW Coeff of Juliana 13.2 Plt Count 97 L MPV 11.4 Immature Gran % (Auto) 0.0 Neut % (Auto) 50.9 Lymph % (Auto) 38.5 Hendricks % (Auto) 5.5 Eos % (Auto) 3.7 Baso % (Auto) 1.4 Neut # (Auto) 2.22 Lymph # (Auto) 1.68 Hendricks # (Auto) 0.24 Eos # (Auto) 0.16 Baso # (Auto) 0.06 Immature Gran # (Auto) 0.00 L Sodium 136 Potassium 5.0 Chloride 101 Carbon Dioxide 25 Anion Gap 10 BUN 49 H Creatinine 11.44 H* D Est Cr Clr Drug Dosing 11.4 eGFR 5.93 BUN/Creatinine Ratio 4.3 L Glucose 107 H Calcium 9.7 Phosphorus 7.3 H Magnesium 2.4 Angiotensin Convert Enz Plasma Metanephrine Plasma Normetanephrine Plas Total Metaneph Tot Nocona/Lambda Ratio Nocona Light Chain Anal Lambda Light Chain Anal EBV Capsid Ag IgG Ab Positive EBV Caps Ag IgG Sig Str 338.0 EBV Capsid Ag IgM Ab Negative EBV Caps Ag IgM Sig Str < 10.0 EBV Early Antigen IgG Positive A EBV EA Signal Strength 17.5 EBV Nuclear Antigen Ab Positive EBV Nucl Ag IgG Sig Str 411.0 EBV Interpretation See Comment Monoscreen Negative PG Care Time/CCT Total # of Minutes Spent Total Time Spent with Patient: Total time spent is greater than 50% in coordination of care (as documented) at patient's floor/unit and/or counseling patient: Prolonged Care Time Prolonged Care Time: Yes Total Prolonged Care Time: 100 Coding Level of Care Code 70268 SUB INP/OBS CARE 3/50MIN (25 - SIGNIFICANT, SEPARATELY IDENTIFIABLE ) Diagnoses Seizure R56.9 PRES (posterior reversible encephalopathy syndrome) I67.83 ESRD on hemodialysis N18.6; Z99.2 Acute intractable headache, unspecified headache type R51.9 Headache chronicity pattern: acute headache Headache type: unspecified Severe uncontrolled hypertension I10 Constipation K59.00 Thrombocytopenia D69.6 Hyperkalemia E87.5 FSGS (focal segmental glomerulosclerosis) N05.1 Hx of deep venous thrombosis Z86.718 Serologic abnormality R89.4 Additional Codes Prolonged Care Time - Prolonged Care Time: Yes ([id number]) (4) Intractable headache Headache chronicity pattern: acute headache Headache type: unspecified Qualified Code(s): R51.9 - Headache, unspecified
[2025-04-24] MEDS: GABAPENTIN 100 MG CAP PO SCH (21:36)
[2025-04-25 07:12] LABS: Anion Gap 10.0 (3-11); Blood Urea Nitrogen 42.0 mg/dl (6-23); Calcium 9.3 mg/dl (8.6-10.3); Carbon Dioxide 25.0 mmol/L (21-32); Chloride 101.0 mmol/L (98-107); Creatinine Clr Calc Pharmacy 14.1 ml/min; Glucose 97.0 mg/dl (70-99(Fasting)); Potassium 5.2 mmol/L (3.5-5.1); Sodium 136.0 mmol/L (136-145)
--- NOTE | 2025-04-25 09:03 | Nephrology Progress Note ---
Date of Service April 25, 2025 Assessment & Plan (1) ESRD on hemodialysis: Plan: * Outpatient HD Rx: TTS 3.75 Fx [id number] BFR 400/QD800 2K 2Ca 1Mg Na140 HCO3 40 EDW 77.5 kg * HD provided yesterday. UF limited to 3L due to symptomatic hypotension. I believe that inpatient weight of 78 kg is patient's true dry weight * Monitor BMP, I&O. Monitor wt but question accuracy (2) Hypertensive emergency: Plan: * Patient reports adherence to prescribed antihypertensive therapy as outpatient * Continue labetalol 400 mg TID, amlodipine 10 mg daily, torsemide 40 mg twice daily * Patient did require one dose Labetalol 10 mg IV yesterday * Given early onset HTN and refractory nature of HTN concerned for underlying secondary cause * 04/04/25 fractionated plasma catecholamines were low. Repeat study ordered 04/20/25 - results pending * 04/04/25 cortisol - wnl (5.22) * Patient appears clinically euthyroid, 04/18 TSH mildly elevated, free T4 wnl * No vascular bruit. 04/08/25 renal doppler was negative for FLORA, 04/23/25 CTA of abdomen was negative for FLORA * Urine free kappa/lambda light chain ratio - low * 04/21/25 echocardiogram: LVEF>70%, no RWMA, severe LVH. Cardiac amyloid was not reported * Clinically doubt sarcoidosis. Normal serum Ca. CXR without LAD. 04/18 vitamin D - wnl. Serum OC - pending * Serum renin and aldosterone are pending * BP remains elevated. I do not believe that patient will tolerate further titration of labetalol due to orthostatic symptoms and fatigue associated w/ beta carmelita therapy. Continue labetalol 400 mg TID, torsemide 40 mg BID, amlodipine 10 mg qD. Spironolactone 50 mg daily was started yesterday to provide MRA therapy. Will stop catapress TTS-3 and add minoxidil 5 mg daily. Plan to titrate minoxidil q2-3 days as needed and then withdraw amlodipine if possible. (3) PRES (posterior reversible encephalopathy syndrome): Plan: * BP control, anticonvulsant therapy Admission and Anticipated Discharge Date Admission Date: April 20, 2025 Subjective Mr. Ramos was evaluated in his hospital room this morning. He denied further seizures but c/o fatigue and orthostasis when ambulating. Dialysis was completed yesterday but UF limited to 3L due to patient c/o dizziness Review of Systems Constitutional: no fever Eyes: no problem reported Ear, Nose, Mouth, Throat: no problem reported Respiratory: no cough and no dyspnea Cardiovascular: no chest pain and no edema Gastrointestinal: no abdominal pain, no nausea, no vomiting and no diarrhea/loose stools Genitourinary: no difficulty urinating Integumentary: no rash Neurologic: no seizure-like activity and no headache(s) Physical Exam Constitutional: no acute distress Eyes: PERRL, conjunctivae normal, anicteric sclerae ENMT: external ear and nose normal, oropharynx normal Neck: trachea midline, no thyromegaly (R IJ TCC with clean dry dressing in place) Respiratory: normal respiratory effort, lungs clear to auscultation Cardiovascular: RRR, no murmur, no edema Gastrointestinal (Abdomen): normal bowel sounds, soft, nontender, no hepatosplenomegaly Musculoskeletal: Extremities: no cyanosis and no clubbing Skin: no rashes, warm and dry Neurologic: no focal motor deficits Results & Data Vital Signs (Past 12 Hours) Vital Signs Temp Pulse Pulse Resp BP BP BP 04/25/25 08:03 37.4 C 79 14 169/110 H 04/25/25 03:32 70 169/100 H 04/25/25 03:30 169/100 H 04/25/25 02:58 36.4 C L 75 20 180/109 H 04/25/25 02:54 90 180/109 H 04/25/25 00:00 73 04/24/25 22:57 36.9 C 69 20 165/97 H Pulse Ox O2 Del Method 04/25/25 08:03 95 Room Air 04/25/25 03:32 04/25/25 03:30 04/25/25 02:58 94 Room Air 04/25/25 02:54 04/25/25 00:00 04/24/25 22:57 94 Room Air Laboratory Results Laboratory Results - last 24 hr 04/20/25 04/23/25 04/24/25 08:36 05:58 07:54 Sodium Potassium Chloride Carbon Dioxide Anion Gap BUN Creatinine Est Cr Clr Drug Dosing eGFR BUN/Creatinine Ratio Glucose Calcium Angiotensin Convert Enz 66 Tot Welsh/Lambda Ratio 1.68 Welsh Light Chain Anal 79 L Lambda Light Chain Anal 47 L EBV Capsid Ag IgG Ab Positive EBV Caps Ag IgG Sig Str 338.0 EBV Capsid Ag IgM Ab Negative EBV Caps Ag IgM Sig Str < 10.0 EBV Early Antigen IgG Positive A EBV EA Signal Strength 17.5 EBV Nuclear Antigen Ab Positive EBV Nucl Ag IgG Sig Str 411.0 EBV Interpretation See Comment 04/25/25 06:16 Sodium 136 Potassium 5.2 H Chloride 101 Carbon Dioxide 25 Anion Gap 10 BUN 42 H Creatinine 9.24 H* D Est Cr Clr Drug Dosing 14.1 eGFR 7.67 BUN/Creatinine Ratio 4.5 L Glucose 97 Calcium 9.3 Angiotensin Convert Enz Tot Welsh/Lambda Ratio Welsh Light Chain Anal Lambda Light Chain Anal EBV Capsid Ag IgG Ab EBV Caps Ag IgG Sig Str EBV Capsid Ag IgM Ab EBV Caps Ag IgM Sig Str EBV Early Antigen IgG EBV EA Signal Strength EBV Nuclear Antigen Ab EBV Nucl Ag IgG Sig Str EBV Interpretation PG Care Time/CCT Total # of Minutes Spent Total Time Spent with Patient: Total time spent is greater than 50% in coordination of care (as documented) at patient's floor/unit and/or counseling patient: Coding Level of Care Code 52097 SUB INP/OBS CARE 3/50MIN Diagnoses ESRD on hemodialysis N18.6; Z99.2 Hypertensive emergency I16.1 PRES (posterior reversible encephalopathy syndrome) I67.83
[2025-04-25] MEDS: OXYMETAZOLINE 0.05% 30 ML BTL PRN (09:17)
[2025-04-25] MEDS: SODIUM ZIRCONIUM CYCLOSILICATE 10 GM PACKET PO SCH (09:33)
--- NOTE | 2025-04-25 15:37 | XRay Report ---
KUB HISTORY: LUQ pain; constipation?? COMPARISON STUDY: 04/23/2025 FINDINGS: There is a large amount of retained stool. No bowel obstruction seen. No gross free air. IMPRESSION: Large amount of retained stool. ACT 112: Negative or not required by law. The above report was generated using voice recognition software. It may contain grammatical, syntax o r spelling errors. Electronically signed by: Kaleb Pan M.D. 04/25/2025 3:35 PM
[2025-04-25] MEDS: POLYETHYLENE (MIRALAX) 17 GM PACK PO ONE (16:15)
[2025-04-25] MEDS: HYDROmorphone INJ 1 MG/ML SYRINGE IV PRN (17:33)
--- NOTE | 2025-04-25 19:58 | Magnetic Resonance Report ---
EXAM: MR venography head wo con CLINICAL HISTORY: known PRES; personal/fam Hx DVT; headaches TECHNIQUE: 2D and 3D phase contrast. Maximum intensity projection and 3D reconstruction were performed for the dural Venous sinuses. Images were sent through PACs for diagnostic interpretation. COMPARISON: CT Brain dated 04/22/2025. FINDINGS: The left sigmoid and lateral sinuses, as well as the proximal straight sinus, show subtle Hypoplasia/Focal signal dropout; otherwise, there is a Normal morphological appearance of the dural venous sinuses with no evidence of sinus thrombosis Normal superficial and deep venous cortical veins. IMPRESSION: 1. The left sigmoid and lateral sinuses, as well as the proximal straight sinus, show subtle Hypoplasia/Focal signal dropout. Otherwise, the dural venous sinuses show no features to suggest major sinus thrombosis. 2. The comparison matches the CT findings. Electronically signed by Chai Bonner 04-25-2025 7:58 PM
--- NOTE | 2025-04-25 20:12 | Hospitalist Progress Note ---
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 MRI brain this admission with findings c/w PRES. He had a seizure during a prior admission in early March as well thought 2nd to PRES as MRI brain during that admission also c/w PRES. #PRES with seizures - -MRI brain c/w PRES; no strokes seen -small area right frontoparietal junction abnormality that could be small acute or subacute infarct vs post seizure; latter favored by neurology -Triggers of PRES - HTN? ESRD/CKD? underlying autoimmune disease? combo of factors? -BP control is paramount but has proven exceptionally difficult despite considerable efforts by nephrology; their assistance is much appreciated -continue keppra IV 1gm daily -will need keppra for at least 3 months -of note - previous NHUNG, ANCA, etc all negative; CRP low at 1.1 -EEG negative for seizure focus -amyloid light chains negative -PRES is the cause of his visual complaints -appreciate neuro assistance to date -spoke with neurology at [facility] as well as [facility] neurology advised systolic BP goal to be <140 -they also recommended consideration of gabapentin or lyrica or similar for headache prophylaxis -they commented that neuro symptoms will persist as long as BPs are high #Severe uncontrolled hypertension - -ongoing despite numerous BP meds -secondary causes of HTN highly suspected but thus far nothing found -CTA renal arteries negative for FLORA -renin/mynor levels pending -catecholamines negative about 2 weeks ago; plasma metanephrines returned negative -TSH not c/w hyperthyroidism -he does not have obvious AIMEE -anti-hypertensive med regimen: -Clonidine patch 0.3mg daily -Labetalol 400mg tid -Losartan 50mg po BID -Amlodipine 10mg po daily -Torsemide 40mg po BID -added spironolactone 2 days ago but with hyperkalemia has been on HOLD -Dr Bonner today stopped the clonidine patch and added minoxidil 5mg qam -Labetalol 10mg IV q 4 hours as needed for SBP > 170; needing a dose about once daily -best BP seen was post-HD yesterday - 150s/100, but BPs have increased yet again, and still with ongoing neuro symptoms -appreciate Dr Bonner's BP management; defer med changes to Dr Bonner # epistaxis vs hemoptysis - -by report coughed up 2-3 Tbsp marleen blood earlier this week -s/p pulmonary consultation by Dr. Vogel -- hemoptysis NOT suspected; upper respiratory/sinus source suspected -Dr. Vogel added doxycycline in case of tickborne illness; day #4 of such; sent Anaplasmosis DNA and is still pending -likely that doxycycline will provide adequate sinus coverage thus augmentin previously discontinued -he is at high risk of DVT/PE in light of hypercoagulability, immobility, etc. -thus, start back heparin 5000 BID for DVT proph cautiously #Intractable headache - -2nd to PRES/uncontrolled HTN -ongoing despite IV pain meds, dexamethasone, attempts to control BP, reglan, IV depakote, ativan, etc. -imaging w/o ICH -in light of famhx of VTE (uncle) and personal h/o superficial thrombus several years ago will obtain MRV - r/o sinus thrombosis -no evidence of meningitis on examination -will try Nurtec ODT - prescribed to his outpatient pharmacy, but prior auth needed; APPROVED; once mom picks up and brings it will start nurtec and give QOD -use of steroids is controversial with PRES - some data available that it can help headache, some data that they can make PRES worse -will defer on steroids for now -cont gabapentin 100mg BID as suggested by [facility] for headache prophy #ESRD secondary to FSGS on HD - -Continue Phoslo -HD 3 days/week -Nephrology consultation appreciated #Hepatosplenomegaly - -etiology? -viral? tick-borne infection? -metabolic disorder? -other? -in light of severe LVH/cardiomegaly (which could be 2nd to severely uncontrolled HTN) - infiltrative disease such as amyloid? -kappa/lambda light chains returned negative -recent ferritin and transferrin saturation not elevated, thus hemochromatosis unlikely -sarcoidosis unlikely - OC level normal -ultimately needs cardiac MRI for further information -EBV panel with possible mono, await EBV PCR -await CMV titers -send parvo titers -I spoke with Dr Hawk today from heme/onc and asked for formal consult in light of hepatosplenomegaly, low platelets, and low WBCs #Anxiety/Depression - -Continue Sertraline 25mg po daily -no appetite and trouble sleeping - prior attending added mirtazapine 15 mg HS #Thrombocytopenia with leukopenia - -etiology uncertain -viral? tick-borne? autoimmune disease? other? -respiratory bioFire fully negative -EBV panel with +early antigen IgG - this is often + during active disease, but IgM is negative; if he has had mono it has probably been in the last few months -sent EBV PCR -CMV IgM/IgG pending -get a parvo titer -NHUNG negative earlier in March -CBC in am tomorrow -heme/onc consult with Dr Hawk requested for any other recs -of note - B12/folate wnl; peripheral smear by pathology - no signs of hemol ysis, TTP, or other abnormalities #constipation - -added miralax -may need more agents #hyperkalemia - -HOLD spironolactone -Dr Bonner added Lokelma -BMP am #DVT ppx - -SCDs -stopped SQ heparin 04/22 2nd to low platelets and ?hemoptysis -resume cautiously heparin 5000 BID as he is at high risk of VTE -cbc am #LUQ Pain - -constipation? -splenomegaly? -obtain [facility] xray and go from there care d/w Dr Bonner via [place] [facility] pt's mother updated at bedside once again unfortunately patient was declined for transfer by [facility] and [facility] on 04/24/25 see my progress note from 04/24/25 for details of these phone calls remains extremely medically complex with ongoing PRES symptoms, headaches, uncontrolled BP, etc . Admission and Anticipated Discharge Date Admission Date: April 20, 2025 Subjective tele wnl remains very tired/weak/fatigued continues with frontal headache continues with dizziness upon getting out of bed was able to sleep uninterrupted from 10pm to 4am overnight; did not wake up due to headache headache got worse today after waking up no new neuro symptoms of arms/legs ocular symptoms similar he does report a LUQ pain that started today having BMs, but they are liquid and small eating/drinking nurtec ODT prior auth completed & approved Review of Systems Review of Systems: gen - no fevers or chills cv - no cp, no orthopnea, no edema pulm - no dyspnea GI - no vomiting Physical Exam Physical Exam: gen - lying in bed, tends to close his eyes, but awake/alert otherwise eyes - horizontal nystagmus, EOMI - no changes mouth - MMM neck - no JVD chest - HD catheter in place heart - RRR, s1 s2, no murmur lungs - CTA b/l abd - soft, ND, BS+; mildly tender LUQ; spleen palpable ext - no edema, pulses 2+ b/l Results & Data Results & Data Vital Signs (Past 12 Hours) Vital Signs Temp Pulse Pulse Resp BP Pulse Ox O2 Del Method 04/25/25 19:41 36.4 C L 75 18 167/93 H 96 Room Air 04/25/25 16:00 79 04/25/25 12:51 36.6 C 78 14 155/82 H 99 Room Air Laboratory Results Laboratory Results - last 24 hr 04/20/25 04/25/25 08:30 06:16 Sodium 136 Potassium 5.2 H Chloride 101 Carbon Dioxide 25 Anion Gap 10 BUN 42 H Creatinine 9.24 H* D Est Cr Clr Drug Dosing 14.1 eGFR 7.67 BUN/Creatinine Ratio 4.5 L Glucose 97 Calcium 9.3 Plasma Metanephrine 50 Plasma Normetanephrine 25 Plas Total Metaneph 75 EBV DNA, Quant Pending EBV DNA (PCR) Pending PG Care Time/CCT Total # of Minutes Spent Total Time Spent with Patient: Total time spent is greater than 50% in coordination of care (as documented) at patient's floor/unit and/or counseling patient: Coding Level of Care Code 16982 SUB INP/OBS CARE 3/50MIN Diagnoses Seizure R56.9 PRES (posterior reversible encephalopathy syndrome) I67.83 ESRD on hemodialysis N18.6; Z99.2 Acute intractable headache, unspecified headache type R51.9 Headache chronicity pattern: acute headache Headache type: unspecified Severe uncontrolled hypertension I10 Constipation K59.00 Thrombocytopenia D69.6 Hyperkalemia E87.5 FSGS (focal segmental glomerulosclerosis) N05.1 Hx of deep venous thrombosis Z86.718 Serologic abnormality R89.4 LUQ pain R10.12 (4) Intractable headache Headache chronicity pattern: acute headache Headache type: unspecified Qualified Code(s): R51.9 - Headache, unspecified
[2025-04-25] MEDS: HEPARIN SOD 5,000 UNIT/0.5 ML VIAL SQ SCH (21:51)
[2025-04-26 06:52] LABS: Hematocrit (blood only) 25.2 % (42.0-52.0); Hemoglobin 8.8 g/dl (14.0-18.0); Immature Granulocytes # (auto) 0.01 K/uL (0.01-0.20); Immature Granulocytes % (auto) 0.2 %; Mean Corpuscular Hemoglobin 29.7 pg (25.0-34.0); Mean Corpuscular Volume 85.1 fL (80.0-100.0); Platelet Count 91 K/uL (130-400); RDW Standard Deviation 39.5 fL (36.4-46.3); Red Blood Count 2.96 M/uL (4.70-6.10); White Blood Count 4.08 K/ul (4.8-10.8)
[2025-04-26] MEDS ORDERED: SODIUM CHLORIDE 0.9% 1,000 ML IV PRN (07:00)
[2025-04-26 07:26] LABS: Anion Gap 11.0 (3-11); Blood Urea Nitrogen 71.0 mg/dl (6-23); Calcium 9.1 mg/dl (8.6-10.3); Carbon Dioxide 25.0 mmol/L (21-32); Chloride 97.0 mmol/L (98-107); Creatinine Clr Calc Pharmacy 10.7 ml/min; Glucose 107.0 mg/dl (70-99(Fasting)); Potassium 4.9 mmol/L (3.5-5.1); Sodium 133.0 mmol/L (136-145)
[2025-04-26] MEDS ORDERED: REMOVE CLONIDINE PATCH SCH (08:59)
--- NOTE | 2025-04-26 10:56 | Nephrology Progress Note ---
Date of Service April 26, 2025 Assessment & Plan (1) End stage renal disease: (2) Hypertensive emergency: (3) Headache: (4) Hyperkalemia: (5) Nausea & vomiting: (6) Seizure: Plan 20-year-old male with end-stage kidney disease and hypertensive urgency, secondary to primary FSGS, started on dialysis. Admitted to the hospital with Seizure, headache and hypertensive emergency. w/u has been unremarkable. Blood pressure staill elevated. -- continue torsemide 40 mg twice a day, low sodium diet -- continue labetalol 400 mg twice a day -- resume Spironolactone, strictly follow low potassium diet, continue with 2K potassium at dialysis. start on Lokelma daily -- Continue on amlodipine, hydralazine, clonidine -- increase Minoxidil to 10 mg daily by tomorrow --OK to use NSAID prn for headache --left arm nephrology precaution Admission and Anticipated Discharge Date Admission Date: April 20, 2025 Dimas Payton was seen and evaluated during dialysis this morning. He reports still having headache and occasionally feeling dizzy. However, tolerating UF. Blood pressure remains quite elevated but more slightly improved from the starting of dialysis. Review of Systems Review of Systems: All systems reviewed & are unremarkable except as noted in Subjective Physical Exam Constitutional: WD/WN, vitals as above + ill appearing Eyes: + anicteric sclerae Respiratory: no respiratory distress Auscultation: lungs clear to auscultation bilaterally Cardiovascular: Rate/Rhythm: regular rate and regular rhythm Heart Sounds: normal S1 and normal S2 Extremities: + vascular access device (Rt IJ TDC); no edema Musculoskeletal: Extremities: extremities normal to inspection Skin: no rashes, warm and dry Neurologic: no focal motor deficits Psychiatric: Orientation: alert and oriented x 3 Affect: euthymic affect Results & Data Vital Signs (Past 12 Hours) Vital Signs Temp Pulse Pulse Pulse Resp BP BP 04/26/25 10:00 81 187/108 H 04/26/25 09:30 84 177/104 H 04/26/25 09:00 79 184/115 H 04/26/25 08:49 81 185/114 H 04/26/25 08:43 36.5 C 83 04/26/25 08:00 76 04/26/25 07:42 36.3 C L 75 18 04/26/25 05:37 04/26/25 03:50 75 04/26/25 03:22 74 178/116 H 04/26/25 03:15 191/120 H 04/26/25 02:39 36.6 C 76 18 181/113 H 04/26/25 02:36 75 181/113 H BP Pulse Ox O2 Del Method 04/26/25 10:00 04/26/25 09:30 04/26/25 09:00 04/26/25 08:49 04/26/25 08:43 04/26/25 08:00 04/26/25 07:42 189/113 H 98 Room Air 04/26/25 05:37 175/103 H 04/26/25 03:50 193/110 H 04/26/25 03:22 04/26/25 03:15 178/116 H 04/26/25 02:39 94 Room Air 04/26/25 02:36 PG Care Time/CCT Total # of Minutes Spent Total Time Spent with Patient: Total time spent is greater than 50% in coordination of care (as documented) at patient's floor/unit and/or counseling patient: Coding Level of Care Code 75358 SUB INP/OBS CARE 235MIN Diagnoses End stage renal disease N18.6 Hypertensive emergency I16.1 Other headache syndrome G44.89 Headache type: other headache syndrome Hyperkalemia E87.5 Nausea & vomiting R11.2 Seizure R56.9 (3) Headache Headache type: other headache syndrome Qualified Code(s): G44.89 - Other headache syndrome
--- NOTE | 2025-04-26 11:40 | Hospitalist Progress Note ---
Date of Service April 26, 2025 Assessment & Plan (1) Seizure: (2) PRES (posterior reversible encephalopathy syndrome): (3) ESRD on hemodialysis: (4) Intractable headache: (5) Severe uncontrolled hypertension: (6) Constipation: (7) Thrombocytopenia: (8) Hyperkalemia: (9) FSGS (focal segmental glomerulosclerosis): (10) Hx of deep venous thrombosis: (11) Serologic abnormality: (12) LUQ pain: (13) Pancytopenia: Plan 20yo male - ESRD on HD due to FSGN - presented with two witnessed seizures and markedly elevated BPs. MRI brain this admission with findings c/w PRES. He had a seizure during a prior admission in early March as well thought 2nd to PRES as MRI brain during that admission also c/w PRES. #PRES with seizures - -MRI brain c/w PRES -small area right frontoparietal junction abnormality that could be small acute or subacute infarct vs post seizure; latter favored by neurology -Triggers of PRES - HTN; ESRD/CKD?; underlying autoimmune disease (but none found)? combo of factors? -BP control is paramount but has proven exceptionally difficult despite considerable efforts by nephrology; their assistance is much appreciated -continue keppra IV 1gm daily for seizure prophylaxis -now also on gabapentin for headaches which will provide some seizure prophy as well -will need keppra for at least 3 months -of note - previous NHUNG, ANCA, etc all negative; CRP low at 1.1 -EEG negative for seizure focus -amyloid light chains negative -PRES is the cause of his visual complaints -appreciate neuro assistance to date -spoke with neurology at [facility] as well as [facility]y advised systolic BP goal to be <140 -they also recommended consideration of gabapentin or lyrica or similar for headache prophylaxis; gabapentin 100mg BID added -they commented that neuro symptoms will persist as long as BPs are high #Severe uncontrolled hypertension - -ongoing despite numerous BP meds -secondary causes of HTN highly suspected but thus far nothing found -CTA renal arteries negative for FLORA -renin/mynor levels pending -catecholamines negative about 2 weeks ago; plasma metanephrines this admission returned negative -TSH not c/w hyperthyroidism -he does not have obvious AIMEE, but will order overnight oximetry study; if normal AIMEE highly unlikely -anti-hypertensive med regimen: -minoxidil 5mg qam -Labetalol 400mg tid -Losartan 50mg po BID -Amlodipine 10mg po daily -Torsemide 40mg po BID -added spironolactone this week but then developed hyperkalemia and was placed on HOLD -Dr Guevara resumed such today -clonidine patch d/c on 04/25/25 -Labetalol 10mg IV q 4 hours as needed for SBP > 170; needing a dose about once daily -best BP seen this week - 150s/100, but BPs typically much higher, and still with ongoing neuro symptoms -appreciate nephrology assistance # epistaxis vs hemoptysis - -by report coughed up 2-3 Tbsp marleen blood earlier this week -s/p pulmonary consultation by Dr. Vogel -- hemoptysis NOT suspected; upper respiratory/sinus source suspected -Dr. Vogel added doxycycline in case of tickborne illness; day #4 of such; sent Anaplasmosis DNA and is still pending -likely that doxycycline will provide adequate sinus coverage thus augmentin previously discontinued -he is at high risk of DVT/PE in light of hypercoagulability, immobility, etc. -thus, started back heparin 5000 BID for DVT proph cautiously #Intractable headache - -2nd to PRES/uncontrolled HTN -ongoing despite IV pain meds, dexamethasone, attempts to control BP, reglan, IV depakote, ativan, etc. -imaging w/o ICH -MRV head negative for dural thrombosis -no evidence of meningitis on examination -discussions with neuro about headache control -- trial of Nurtec ODT - unf ortunately it is contraindicated in ESRD patients due to lack of proper study in this patient population; patient counseled on this today -use of steroids is controversial with PRES - some data available that it can help headache, some data that they can make PRES worse -will defer on steroids for now -cont gabapentin 100mg BID as suggested by [facility] for headache prophy -he is requiring copious amounts of dilaudid prn and ativan prn for headache -he might gain better headache control if he "stays head of things" with a FOOD SERVICES MANAGER; discussed this with him today, will change PRN dilaudid to FOOD SERVICES MANAGER -start demands at 0.1mg and lock-out of 20 min with no basal; adjust as needed -cont tylenol scheduled #ESRD secondary to FSGS on HD - -Continue Phoslo -HD 3 days/week -Nephrology consultation appreciated and HD management appreciated #Hepatosplenomegaly - -etiology? -viral? tick-borne infection? -metabolic disorder? -other? -in light of severe LVH/cardiomegaly (which could be 2nd to severely uncontrolled HTN) - infiltrative disease such as amyloid? -kappa/lambda light chains returned negative -recent ferritin and transferrin saturation not elevated, thus hemochromatosis unlikely -sarcoidosis unlikely - OC level normal -ultimately needs cardiac MRI for further information -EBV panel with possible mono, await EBV PCR -await CMV titers -sent parvo titers -I spoke with Dr Hawk from heme/onc and asked for formal consult in light of hepatosplenomegaly, low platelets, and low WBCs / pancytopenia #Anxiety/Depression - -Continue Sertraline 25mg po daily -no appetite and trouble sleeping - prior attending added mirtazapine 15 mg HS #Thrombocytopenia with leukopenia - -etiology uncertain -viral? tick-borne? autoimmune disease? other? -respiratory bioFire fully negative -EBV panel with +early antigen IgG - this is often + during active disease, but IgM is negative; if he has had mono it has probably been in the last few months -sent EBV PCR -CMV IgM/IgG pending -parvo titers dispatched -NHUNG negative earlier in March -CBC in am tomorrow -heme/onc consult with Dr Hawk requested for any other recs -of note - B12/folate wnl; peripheral smear by pathology - no signs of hemolysis, TTP, or other abnormalities #constipation - -mod-severe -miralax -may need more agents #hyperkalemia - -HOLD spironolactone -Dr Bonner added Lokelma -BMP am #DVT ppx - -SCDs -stopped SQ heparin 04/22 2nd to low platelets and ?hemoptysis -resumed cautiously heparin 5000 BID as he is at high risk of VTE -cbc today stable #LUQ Pain - -resolved -likely combo of constipation and perhaps even splenomegaly unfortunately patient was declined for transfer by [facility] on 04/24/25 see my progress note from 04/24/25 for details of these phone calls remains extremely medically complex with ongoing PRES symptoms, headaches, uncontrolled BP, etc . had [place] correspondence today with Dr Valle from neuro & Dr Guevara from nephro Admission and Anticipated Discharge Date Admission Date: April 20, 2025 Subjective headaches continue fatigue/weakness/dizziness with walking persists fortunately able to eat/drink was able to sleep again overnight LUQ discomfort he had had yesterday has resolved did move his bowels he voices that he & his family are hoping for transfer to tertiary care due to lack of progress had HD today and did not tolerate such - had horrible headache starting during the session much like previous HD sessions headache now persists post-HD (Frontal) Review of Systems Review of Systems: gen - no fevers cv - no cp, no edema pulm - no hemoptysis, no dyspnea GI - no N/V Physical Exam Physical Exam: gen - lying in bed, looks uncomfortable due to headache mouth - MMM neck - no JVD chest - HD catheter in place heart - RRR, s1 s2, no murmur lungs - CTA b/l abd - soft, ND, BS+; NT today; spleen palpable ext - no edema, pulses 2+ b/l Results & Data Results & Data Vital Signs (Past 12 Hours) Vital Signs Temp Pulse Pulse Pulse Resp BP BP 04/26/25 11:30 81 172/108 H 04/26/25 11:00 85 179/106 H 04/26/25 10:30 87 178/103 H 04/26/25 10:00 81 187/108 H 04/26/25 09:30 84 177/104 H 04/26/25 09:00 79 184/115 H 04/26/25 08:49 81 185/114 H 04/26/25 08:43 36.5 C 83 04/26/25 08:00 76 04/26/25 07:42 36.3 C L 75 18 04/26/25 05:37 04/26/25 03:50 75 04/26/25 03:22 74 178/116 H 04/26/25 03:15 191/120 H 04/26/25 02:39 36.6 C 76 18 181/113 H 04/26/25 02:36 75 181/113 H BP Pulse Ox O2 Del Method 04/26/25 11:30 04/26/25 11:00 04/26/25 10:30 04/26/25 10:00 04/26/25 09:30 04/26/25 09:00 04/26/25 08:49 08/02/25 08:43 04/26/25 08:00 04/26/25 07:42 189/113 H 98 Room Air 04/26/25 05:37 175/103 H 04/26/25 03:50 193/110 H 04/26/25 03:22 04/26/25 03:15 178/116 H 04/26/25 02:39 94 Room Air 04/26/25 02:36 Laboratory Results Laboratory Results - last 24 hr 04/26/25 06:19 WBC 4.08 L RBC 2.96 L Hgb 8.8 L Hct 25.2 L MCV 85.1 MCH 29.7 MCHC 34.9 RDW Std Deviation 39.5 RDW Coeff of Juliana 12.8 Plt Count 91 L MPV 11.9 Immature Gran % (Auto) 0.2 Neut % (Auto) 43.4 Lymph % (Auto) 36.3 Norton % (Auto) 7.1 Eos % (Auto) 10.8 Baso % (Auto) 2.2 Neut # (Auto) 1.77 Lymph # (Auto) 1.48 Norton # (Auto) 0.29 Eos # (Auto) 0.44 Baso # (Auto) 0.09 Immature Gran # (Auto) 0.01 Sodium 133 L Potassium 4.9 Chloride 97 L Carbon Dioxide 25 Anion Gap 11 BUN 71 H D Creatinine 12.11 H* D Est Cr Clr Drug Dosing 10.7 eGFR 5.54 BUN/Creatinine Ratio 5.9 L Glucose 107 H Calcium 9.1 Parvovirus IgG Ab Index Pending Parvovirus IgM Ab Index Pending PG Care Time/CCT Total # of Minutes Spent Total Time Spent with Patient: Total time spent is greater than 50% in coordination of care (as documented) at patient's floor/unit and/or counseling patient: Coding Level of Care Code 48116 SUB INP/OBS CARE 3/50MIN Diagnoses Seizure R56.9 PRES (posterior reversible encephalopathy syndrome) I67.83 ESRD on hemodialysis N18.6; Z99.2 Acute intractable headache, unspecified headache type R51.9 Headache chronicity pattern: acute headache Headache type: unspecified Severe uncontrolled hypertension I10 Constipation K59.00 Thrombocytopenia D69.6 Hyperkalemia E87.5 FSGS (focal segmental glomerulosclerosis) N05.1 Hx of deep venous thrombosis Z86.718 Serologic abnormality R89.4 LUQ pain R10.12 Pancytopenia D61.818 (4) Intractable headache Headache chronicity pattern: acute headache Headache type: unspecified Qualified Code(s): R51.9 - Headache, unspecified
[2025-04-26] MEDS ORDERED: NON-FORMULARY PATIENT'S OWN MED SCH (11:45)
[2025-04-26] MEDS: SODIUM ZIRCONIUM CYCLOSILICATE 10 GM PACKET PO SCH (13:05)
[2025-04-26] MEDS ORDERED: NALOXONE HCL 0.4 MG/1 ML VIAL/CARP IV PRN (14:30)
[2025-04-26] MEDS ORDERED: HYDROmorphone Bolus from PCA IV PRN (14:30)
[2025-04-26] MEDS: SODIUM CHLORIDE 0.9% 1,000 ML IV SCH (15:16)
[2025-04-26] MEDS: HYDROmorphone PCA 30 MG/30 ML IV PRN (15:17)
[2025-04-26] MEDS: HYDROmorphone INJ 1 MG/ML SYRINGE IV PRN (22:26)
[2025-04-27] MEDS: SPIRONOLACTONE 25 MG TAB PO SCH (08:00)
--- NOTE | 2025-04-27 11:47 | Nephrology Progress Note ---
Date of Service April 27, 2025 Assessment & Plan (1) End stage renal disease: (2) Hypertensive emergency: (3) Headache: (4) Hyperkalemia: (5) Nausea & vomiting: (6) Seizure: Plan 20-year-old male with end-stage kidney disease and hypertensive urgency, secondary to primary FSGS, started on dialysis. Admitted to the hospital with Seizure, headache and hypertensive emergency. w/u has been unremarkable. Blood pressure still elevated. K normal this morning, on Lokelma. Had HD yesterday, tolerated > but no significant changes in blood pressure even with UF. -- continue torsemide 40 mg twice a day for now, if UO remains low, may consider stopping in future, low sodium diet -- ok to continue on Remeron 15 mg qhs for sleep -- continue labetalol 400 mg twice a day -- Spironolactone 50 mg daily, strictly follow low potassium diet, continue with 2K potassium at dialysis. start on Lokelma daily -- Continue on amlodipine, hydralazine, clonidine -- increase Minoxidil to 10 mg daily by tomorrow --OK to use NSAID prn for headache --left arm nephrology precaution Admission and Anticipated Discharge Date Admission Date: April 20, 2025 Dimas Payton was seen and evaluated this morning, his Mom was at bedside. He reports still having headache and occasionally feeling of lightheaded. Had BM today after few days but now having some abdominal cramping. Blood pressure remains quite elevated. Review of Systems Review of Systems: Detail ROS was done and pertinents as mentioned above Physical Exam Constitutional: WD/WN, vitals as above + ill appearing Eyes: + anicteric sclerae Respiratory: no respiratory distress Auscultation: lungs clear to auscultation bilaterally Cardiovascular: Rate/Rhythm: regular rate and regular rhythm Heart Sounds: normal S1 and normal S2 Extremities: + vascular access device (Rt IJ TDC); no edema Musculoskeletal: Extremities: extremities normal to inspection Skin: no rashes, warm and dry Neurologic: no focal motor deficits Psychiatric: Orientation: alert and oriented x 3 Affect: euthymic affect Results & Data Vital Signs (Past 12 Hours) Vital Signs Temp Pulse Pulse Pulse Resp BP Pulse Ox 04/27/25 07:45 36.3 C L 87 18 170/98 H 97 04/27/25 07:21 76 04/27/25 03:06 76 04/27/25 03:05 36.7 C 80 16 168/96 H 97 04/26/25 23:51 86 Pulse Ox O2 Del Method O2 Del Method 04/27/25 07:45 Room Air 04/27/25 07:21 04/27/25 03:06 96 Room Air 04/27/25 03:05 Room Air 04/26/25 23:51 PG Care Time/CCT Total # of Minutes Spent Total Time Spent with Patient: Total time spent is greater than 50% in coordination of care (as documented) at patient's floor/unit and/or counseling patient: Coding Level of Care Code 07868 SUB INP/OBS CARE 2/35MIN Diagnoses End stage renal disease N18.6 Hypertensive emergency I16.1 Other headache syndrome G44.89 Headache type: other headache syndrome Hyperkalemia E87.5 Nausea & vomiting R11.2 Seizure R56.9 (3) Headache Headache type: other headache syndrome Qualified Code(s): G44.89 - Other headache syndrome
[2025-04-27] MEDS: MECLIZINE 12.5 MG TAB PO STA (16:59)
--- NOTE | 2025-04-27 17:03 | Hospitalist Progress Note ---
Date of Service April 27, 2025 Assessment & Plan (1) Seizure: (2) PRES (posterior reversible encephalopathy syndrome): (3) ESRD on hemodialysis: (4) Intractable headache: (5) Severe uncontrolled hypertension: (6) Constipation: (7) Thrombocytopenia: (8) Hyperkalemia: (9) FSGS (focal segmental glomerulosclerosis): (10) Hx of deep venous thrombosis: (11) Serologic abnormality: (12) LUQ pain: (13) Pancytopenia: Plan 20yo male - ESRD on HD due to FSGN - presented with two witnessed seizures and markedly elevated BPs. MRI brain this admission with findings c/w PRES. He had a seizure during a prior admission in early March as well thought 2nd to PRES as MRI brain during that admission also c/w PRES. #PRES with seizures - -MRI brain x 2 (early March, then this admission) c/w PRES -Triggers of PRES - HTN; ESRD/CKD; underlying autoimmune disease (but none found to date)? combo of factors? -BP control is paramount but has proven exceptionally difficult despite considerable efforts by nephrology; their assistance is very much appreciated -continue keppra IV 1gm daily for seizure prophylaxis; can change this to PO tomorrow -now also on gabapentin for headaches which will provide some seizure prophy as well -will need keppra for at least 3 months -of note - previous NHUNG, ANCA, etc all negative; CRP low at 1.1 -EEG negative for seizure focus -amyloid light chains negative -PRES is the cause of his visual complaints, ataxia, vertigo, etc. -appreciate neurology assistance to date -spoke with neurology at [facility] as well as [facility] last week -[facility] advised systolic BP goal to be <140 -they also recommended consideration of gabapentin or lyrica or similar for headache prophylaxis; gabapentin 100mg BID added - tolerating thus far -they commented that neuro symptoms will persist as long as BPs are high #Severe uncontrolled hypertension - -ongoing despite numerous BP meds and multiple med trials -secondary causes of HTN highly suspected but thus far nothing found -CTA renal arteries negative for FLORA -renin/mynor levels pending -catecholamines negative about 2 weeks ago; plasma metanephrines this admission returned negative -TSH not c/w hyperthyroidism -he does not have obvious AIMEE, but overnight oximetry study checked and was normal -anti-hypertensive med regimen: -minoxidil 5mg qam - to be increased to 10mg starting tomorrow -Labetalol 400mg tid -Amlodipine 10mg po daily -Torsemide 40mg po BID -aldactone 50mg daily -clonidine patch and losartan have been d/c -cont labetalol 10mg IV q 4 hours as needed for SBP > 170 -BPs this afternoon were about the best I have seen since his admission -appreciate nephrology assistance # epistaxis vs hemoptysis - -by report coughed up 2-3 Tbsp marleen blood earlier this week -s/p pulmonary consultation by Dr. Vogel -- hemoptysis NOT suspected; upper respiratory/sinus source suspected -Dr. Vogel added doxycycline in case of tickborne illness; day #4 of such; sent Anaplasmosis DNA and is still pending -likely that doxycycline will provide adequate sinus coverage thus augmentin previously discontinued -he is at high risk of DVT/PE in light of hypercoagulability, immobility, etc. -thus, started back heparin 5000 BID for DVT proph cautiously; still no bleeding issues since adding back the heparin SC #Intractable headache - -2nd to PRES/uncontrolled HTN -ongoing despite IV pain meds, dexamethasone, attempts to control BP, reglan, IV depakote, ativan, etc. -imaging w/o ICH -MRV head negative for dural thrombosis -no evidence of meningitis on examination -discussions with neuro about headache control -- we were going to pursue a trial of Nurtec ODT QOD - unfortunately it is contraindicated in ESRD patients due to lack of proper study in this patient population; patient counseled and thus holding the med -use of steroids is controversial with PRES - some data available that it can help headache, some data that they can make PRES worse -defer on steroids for now -cont gabapentin 100mg BID as suggested by [facility] for headache prophy; consider dose increase to 200mg BID tomorrow -cont dilaudid prn -cont ativan prn -cont tylenol scheduled -since he has prominent dysequilibrium and vertigo will give a dose of meclizine today #ESRD secondary to FSGS on HD - -Continue Phoslo -HD 3 days/week -Nephrology HD management appreciated #Hepatosplenomegaly - -etiology? -viral? tick-borne infection? -metabolic disorder? -other? -in light of severe LVH/cardiomegaly (which could be 2nd to severely uncontrolled HTN) - infiltrative disease such as amyloid? -kappa/lambda light chains returned negative -recent ferritin and transferrin saturation not elevated, thus hemochromatosis unlikely -sarcoidosis unlikely - OC level normal -ultimately needs cardiac MRI for further information -EBV panel with possible mono, await EBV PCR -await CMV titers -await parvo titers -I spoke with Dr Hawk from heme/onc and asked for formal consult in light of hepatosplenomegaly, low platelets, and low WBCs / pancytopenia -she mentioned the possibility of a bone marrow bx just to be on safe side #Anxiety/Depression - -Continue Sertraline 25mg po daily -Continue mirtazapine 15 mg HS #Thrombocytopenia with leukopenia - -etiology uncertain -viral? tick-borne? autoimmune disease? other? -respiratory bioFire fully negative -EBV panel with +early antigen IgG - this is often + during active disease, but IgM is negative; if he has had mono it has probably been in the last few months -sent EBV PCR -CMV IgM/IgG pending -parvo titers dispatched -NHUNG negative earlier in March -heme/onc consult with Dr Hawk requested for any other recs -of note - B12/folate wnl; peripheral smear by pathology - no signs of hemolysis, TTP, or other abnormalities #constipation - -mod-severe -miralax - increase to BID dosing -may need more agents #hyperkalemia - resolved - -cont once daily Lokelma -BMP am #DVT ppx - -SCDs -stopped SQ heparin 04/22 2nd to low platelets and ?hemoptysis -resumed cautiously heparin 5000 BID as he is at high risk of VTE -cbc stable since resuming the heparin #LUQ Pain - -resolved -likely combo of constipation and perhaps even splenomegaly unfortunately patient was declined for transfer by [facility] and [facility] on 04/24/25 see my progress note from 04/24/25 for details of these phone calls remains extremely medically complex with ongoing PRES symptoms, headaches, uncontrolled BP, etc . discussed pt's care extensively with Dr Guevara from nephro today will reach back out to [facility] tomorrow, 04/28, if no improvement in BPs, PRES symptoms, etc between now & then Admission and Anticipated Discharge Date Admission Date: April 20, 2025 Subjective patient last pm asked to be switched back from [employer] dilaudid to IV dilaudid prn he felt the [employer] was making him have worsening nausea continues with headaches continues with intermittent diplopia continues with vertigo with head movements and sitting/standing up did have BM today had some mild right-sided abdominal cramps earlier today, however eating well - 100% of meals mother at bedside along with other family mother asks if he has been screened for cancer -- discussed the numerous imaging studies he has had did also tell them about negative overnight oximetry study -- completely normal Review of Systems Review of Systems: cv - no chest pain pulm - no dyspnea GI - no nausea/emesis Physical Exam Physical Exam: gen - lying in bed, looks more comfortable than yesterday, NAD mouth - MMM neck - no JVD chest - HD catheter in place right chest - clean heart - RRR, s1 s2, no murmur lungs - CTA b/l, no rales abd - soft, ND, BS+; NT ext - no edema, pulses 2+ b/l Results & Data Results & Data Vital Signs (Past 12 Hours) Vital Signs Temp Pulse Pulse Pulse Resp BP Pulse Ox 04/27/25 13:30 87 04/27/25 12:32 36.7 C 93 H 92 H 18 150/81 H 97 04/27/25 07:45 36.3 C L 87 18 170/98 H 97 04/27/25 07:21 76 O2 Del Method 04/27/25 13:30 04/27/25 12:32 Room Air 04/27/25 07:45 Room Air 04/27/25 07:21 Laboratory Results Laboratory Results - last 24 hr 04/22/25 17:08 Babesia microti DNA PCR Not Detected PG Care Time/CCT Total # of Minutes Spent Total Time Spent with Patient: Total time spent is greater than 50% in coordination of care (as documented) at patient's floor/unit and/or counseling patient: Coding Level of Care Code 09894 SUB INP/OBS CARE 3/50MIN Diagnoses Seizure R56.9 PRES (posterior reversible encephalopathy syndrome) I67.83 ESRD on hemodialysis N18.6; Z99.2 Acute intractable headache, unspecified headache type R51.9 Headache chronicity pattern: acute headache Headache type: unspecified Severe uncontrolled hypertension I10 Constipation K59.00 Thrombocytopenia D69.6 Hyperkalemia E87.5 FSGS (focal segmental glomerulosclerosis) N05.1 Hx of deep venous thrombosis Z86.718 Serologic abnormality R89.4 LUQ pain R10.12 Pancytopenia D61.818 (4) Intractable headache Headache chronicity pattern: acute headache Headache type: unspecified Qualified Code(s): R51.9 - Headache, unspecified
[2025-04-28 06:30] LABS: Hematocrit (blood only) 22.8 % (42.0-52.0); Hemoglobin 7.8 g/dl (14.0-18.0); Immature Granulocytes # (auto) 0.01 K/uL (0.01-0.20); Immature Granulocytes % (auto) 0.3 %; Mean Corpuscular Hemoglobin 29.1 pg (25.0-34.0); Mean Corpuscular Volume 85.1 fL (80.0-100.0); Platelet Count 89 K/uL (130-400); RDW Standard Deviation 39.7 fL (36.4-46.3); Red Blood Count 2.68 M/uL (4.70-6.10); White Blood Count 3.88 K/ul (4.8-10.8)
[2025-04-28 07:02] LABS: Tear Drop Cells 1+
--- NOTE | 2025-04-28 07:36 | Oncology Consultation ---
Date of Consultation April 28, 2025 Assessment & Plan (1) Pancytopenia: (2) PRES (posterior reversible encephalopathy syndrome): (3) ESRD on hemodialysis: Plan -Pancytopenia likely secondary to splenomegaly. Recommend bone marrow biopsy to rule out underlying hematologic malignancy. Patient would like to proceed with bone marrow biopsy with sedation. Orders placed. Will discuss results with patient when available. Thank you for this consult. Please feel free to call if you have any further questions. History of Present Illness Reason for Consultation: Pancytopenia Attending Physician: Bin Krishnamurthy MD History of Present Illness Mr. Ramos is a pleasant 20-year-old gentleman with complicated medical history including end-stage renal disease secondary to FSGN on dialysis, press with seizures, uncontrolled hypertension. Hematology was consulted for pancytopenia. Abdominal ultrasound obtained on 04/22/2025 showed moderate hepatosplenomegaly Allergies Allergy/AdvReac Type Severity Reaction Status Date / Time No Known Allergies Allergy Unknown Verified 04/17/25 11:25 Home Medications Medication Instructions Recorded Confirmed Type hydroxyzine HCl 25 mg tablet 25 mg PO TID PRN anxiety #90 tabs 11/13/24 04/15/25 Rx amlodipine 10 mg tablet 10 mg PO QAM #90 tabs 01/29/25 04/20/25 Rx calcium acetate(phosphat bind) 667 1,334 mg (2 x 667 mg) PO TIDM 90 01/29/25 04/20/25 Rx mg capsule days #540 caps cholecalciferol (vitamin D3) 125 125 mcg PO QAM #90 tabs 01/29/25 04/20/25 Rx mcg (5,000 unit) tablet Medical Marijuana 1 dose PO DIRECTED PRN Other 03/14/25 04/15/25 History clonidine HCl 0.3 mg tablet 0.3 mg PO DAILY #30 tabs 04/06/25 04/15/25 Rx prochlorperazine maleate 10 mg 10 mg PO Q8H PRN nausea and 04/15/25 Rx tablet (Compazine) vomiting 5 days #15 tabs clonidine 0.3 mg/24 hr weekly 0.3 mg transdermal Q7D 04/17/25 04/20/25 History transdermal patch ketoconazole 2 % topical cream 1 applic topical .every other day 04/17/25 04/20/25 History PRN Rash labetalol 200 mg tablet 400 mg PO BID 04/17/25 04/20/25 History losartan 50 mg tablet 50 mg PO BID 04/17/25 04/20/25 History minoxidil 2.5 mg tablet 5 mg (2 x 2.5 mg) PO DAILY #30 tabs 04/17/25 04/17/25 Rx sertraline 25 mg tablet 25 mg PO DAILY #30 tabs 04/17/25 04/20/25 Rx torsemide 20 mg tablet 40 mg PO BID 04/17/25 04/20/25 History rimegepant 75 mg disintegrating 75 mg PO Q OTHER DAY #8 tabs 04/23/25 Rx tablet (Nurtec ODT) Patient History Medical History Hx of metabolic acidosis Anticoagulated on Coumadin pt states he has not been taking his Coumadin since apprx mid January 2025 Dialysis patient [facility] in [place] > tues/thurs/sat History of postoperative nausea and vomiting Hx of deep venous thrombosis 01/2024 > right arm > was on warfarin > now DC'ed Cardiac murmur Anemia FSGS (focal segmental glomerulosclerosis) Generalized anxiety disorder Thrombophilia End stage renal disease follows with Dr. Woods - HD 3x per week:[facility] in [place] > /th/sat CKD (chronic kidney disease) Hypertension recently added clonidine 0.[address] woods Surgical History S/P hemodialysis catheter insertion (12/2024) perm cath for HD- right jugular S/P left knee arthroscopy H/O hernia repair Family History Mother Diabetes Grandfather (Maternal) Hypertension Other No family history of adverse response to anesthesia Denies family history of Ovarian cancer Prostate cancer Myocardial infarction Breast cancer Lung cancer Stroke Social History Smoking Status: Never smoker Tobacco Type: Smokeless Tobacco (Dip or Chew) Smoking End Date: quit 1 year ago; Second Hand Exposure: No; Do You Dip or Chew Tobacco: No; Tobacco Cessation Education Requested by Patient: No Hx Alcohol Use: No Hx Substance Use: No Preferred Language: Bulgarian Communication Ability: Effective Visual Impairment: No Limitations Hearing Ability: Normal 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 Required: No Beliefs That Will Affect Care: Spiritual marital status: Single Current Living Situation: Parent Current Living Situation Comment: lives at home with family current occupational status: employed 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[employer] How many Children do You have: 0 Other Information That Helps Us Care for You: No Feels Safe at Home: Yes Safety Concerns: Feels Safe At This Time Childhood Exposure to Second-Hand Smoke: No caffeine: No Dental Care, Regularly: Yes Physical Activity Frequency: 5-6 Times per Week Seatbelt Use: always Sunscreen Use: No Assistive Devices: None Results & Data Vital Signs (Past 12 Hours) Vital Signs Temp Pulse Pulse Resp BP Pulse Ox O2 Del Method 04/28/25 05:03 170/95 H 04/28/25 04:20 36.6 C 18 96 Room Air 04/27/25 23:37 95 H 04/27/25 22:29 36.5 C 94 H 16 168/80 H 95 Room Air 04/27/25 20:04 36.7 C 16 95 Room Air
[2025-04-28] MEDS: SUCRALFATE 1 GM/10 ML UDC PO ONE (08:02)
[2025-04-28] MEDS: FAMOTIDINE 20 MG TAB PO ONE (08:02)
[2025-04-28] MEDS: LABETALOL HCL IV 5 MG/ML 20ML IV PRN (08:04)
--- NOTE | 2025-04-28 10:09 | Nephrology Progress Note ---
Date of Service April 28, 2025 Assessment & Plan (1) End stage renal disease: (2) Hypertensive emergency: (3) Headache: (4) Hyperkalemia: (5) Nausea & vomiting: (6) Seizure: Plan 20-year-old male with end-stage kidney disease and hypertensive urgency, secondary to primary FSGS, started on dialysis. Admitted to the hospital with Seizure, headache and hypertensive emergency. w/u has been unremarkable. Blood pressure still elevated. Still having headache -- continue torsemide 40 mg twice a day for now, if UO remains low, may consider stopping in future, low sodium diet -- ok to continue on Remeron 15 mg qhs for sleep -- continue labetalol 400 mg twice a day -- Spironolactone 50 mg daily, strictly follow low potassium diet, continue with 2K potassium at dialysis. start on Lokelma daily -- Continue on amlodipine, hydralazine, clonidine -- Minoxidil 10 mg daily starting today --OK to use NSAID prn for headache --left arm nephrology precaution --on going discussion with [facility] for possible transfer. Admission and Anticipated Discharge Date Admission Date: April 20, 2025 Dimas Payton was seen and evaluated this morning, his Mom was at bedside. He reports just having another episode of bad headache and received Dilaudid 2 minutes ago and trying to rest. He feels anxious and depressed and requesting a consultation with Psychiatry. Blood pressure remains quite elevated. Review of Systems Review of Systems: Detail ROS was done and pertinents as mentioned above Physical Exam Constitutional: WD/WN, vitals as above + ill appearing Eyes: + anicteric sclerae Neurologic: no focal motor deficits Psychiatric: Orientation: alert and oriented x 3 Affect: euthymic affect Results & Data Vital Signs (Past 12 Hours) Vital Signs Temp Pulse Pulse Resp BP BP Pulse Ox 04/28/25 09:03 97 H 185/96 H 04/28/25 07:51 36.4 C L 85 20 98 04/28/25 07:40 85 04/28/25 05:03 170/95 H 04/28/25 04:20 36.6 C 18 96 04/27/25 23:37 95 H 04/27/25 22:29 36.5 C 94 H 16 168/80 H 95 O2 Del Method 04/28/25 09:03 04/28/25 07:51 Room Air 08/04/25 07:40 04/28/25 05:03 04/28/25 04:20 Room Air 04/27/25 23:37 04/27/25 22:29 Room Air PG Care Time/CCT Total # of Minutes Spent Total Time Spent with Patient: Total time spent is greater than 50% in coordination of care (as documented) at patient's floor/unit and/or counseling patient: Coding Level of Care Code 76781 SUB INP/OBS CARE 2/35MIN Diagnoses End stage renal disease N18.6 Hypertensive emergency I16.1 Other headache syndrome G44.89 Headache type: other headache syndrome Hyperkalemia E87.5 Nausea & vomiting R11.2 Seizure R56.9 (3) Headache Headache type: other headache syndrome Qualified Code(s): G44.89 - Other headache syndrome
[2025-04-28 15:57] LABS: Appearance Urine Clear (Clear); Bacteria Urine Automated None Seen (None Seen); Cast Urine Automated 0-2 /lpf (0-2); Epithelial Cell Urine Auto 0-2 /hpf (0-2); Glucose Urine UA 1+ (Negative)
--- NOTE | 2025-04-28 18:28 | Hospitalist Progress Note ---
Date of Service April 28, 2025 Assessment & Plan (1) Seizure: (2) PRES (posterior reversible encephalopathy syndrome): (3) ESRD on hemodialysis: (4) Intractable headache: (5) Severe uncontrolled hypertension: (6) Constipation: (7) Thrombocytopenia: (8) Hyperkalemia: (9) FSGS (focal segmental glomerulosclerosis): (10) Hx of deep venous thrombosis: (11) Serologic abnormality: (12) LUQ pain: (13) Pancytopenia: Plan 20yo male - ESRD on HD due to FSGN - presented with two witnessed seizures and markedly elevated BPs. MRI brain this admission with findings c/w PRES. He had a seizure during a prior admission in early March as well thought 2nd to PRES as MRI brain during that admission also c/w PRES. #PRES with seizures - -MRI brain x 2 (early March, then this admission) c/w PRES -Triggers of PRES - HTN; ESRD/CKD; underlying autoimmune disease (but none found to date)? combo of factors? -BP control is paramount but has proven exceptionally difficult despite considerable efforts by nephrology; their assistance is very much appreciated -continue keppra IV 1gm daily for seizure prophylaxis; can change this to PO tomorrow -now also on gabapentin for headaches which will provide some seizure prophy as well -will need keppra for at least 3 months -of note - previous NHUNG, ANCA, etc all negative; CRP low at 1.1 -EEG negative for seizure focus -amyloid light chains negative -PRES is the cause of his visual complaints, ataxia, vertigo, etc. -appreciate neurology assistance to date -spoke with neurology at [facility] as well as [facility] last week -[place] [facility] advised systolic BP goal to be <140 -they also recommended consideration of gabapentin or lyrica or similar for headache prophylaxis; gabapentin 100mg BID added - tolerating thus far -they commented that neuro symptoms will persist as long as BPs are high #Severe uncontrolled hypertension - -ongoing despite numerous BP meds and multiple med trials -secondary causes of HTN highly suspected but thus far nothing found -CTA renal arteries negative for FLORA -renin/mynor levels returned; no hyper-mynor -catecholamines negative about 2 weeks ago; plasma metanephrines this admission returned negative -TSH not c/w hyperthyroidism -he does not have obvious AIMEE, but overnight oximetry study checked and was normal -anti-hypertensive med regimen: -minoxidil 5mg qam - to be increased to 10mg today -Labetalol 400mg tid -Amlodipine 10mg po daily -Torsemide 40mg po BID -aldactone 50mg daily -clonidine patch and losartan have been d/c -cont labetalol 10mg IV q 4 hours as needed for SBP > 170 -BPs remain resistant to all BP meds and treatments -appreciate nephrology assistance # epistaxis vs hemoptysis - -by report coughed up 2-3 Tbsp marleen blood earlier this week -s/p pulmonary consultation by Dr. Vogel -- hemoptysis NOT suspected; upper respiratory/sinus source suspected -Dr. Vogel added doxycycline in case of tickborne illness but anaplasmosis DNA is negative -further, CT sinuses does not show acute sinusitis -abx stopped -he is at high risk of DVT/PE in light of hypercoagulability, immobility, etc. -thus, started back heparin 5000 BID for DVT proph cautiously; still no bleeding issues since adding back the heparin SC #Intractable headache - -2nd to PRES/uncontrolled HTN -ongoing despite IV pain meds, dexamethasone, attempts to control BP, reglan, IV depakote, ativan, etc. -imaging w/o ICH -MRV head negative for dural thrombosis -no evidence of meningitis on examination -discussions with neuro about headache control -- we were going to pursue a trial of Nurtec ODT QOD - unfortunately it is contraindicated in ESRD patients due to lack of proper study in this patient population; patient counseled and thus holding the med -use of steroids is controversial with PRES - some data available that it can help headache, some data that they can make PRES worse -defer on steroids for now -cont gabapentin 100mg BID as suggested by [facility] for headache prophy; consider dose increase to 200mg BID tomorrow -cont dilaudid prn -cont ativan prn -cont tylenol scheduled -since he has prominent dysequilibrium and vertigo gave a dose of meclizine yesterday but he did not notice any improvement in any symptoms #ESRD secondary to FSGS on HD - -Continue Phoslo -HD 3 days/week -Nephrology HD management appreciated #Hepatosplenomegaly - -etiology? -viral? tick-borne infection? -metabolic disorder? -other? -in light of severe LVH/cardiomegaly (which could be 2nd to severely uncontrolled HTN) - infiltrative disease such as amyloid? -kappa/lambda light chains returned negative -recent ferritin and transferrin saturation not elevated, thus hemochromatosis unlikely -sarcoidosis unlikely - OC level normal -ultimately needs cardiac MRI for further information -EBV panel with possible mono, await EBV PCR -CMV titers negative -await parvo titers -I spoke with Dr Hawk from heme/onc and asked for formal consult in light of hepatosplenomegaly, low platelets, and low WBCs / pancytopenia -she advised bone marrow bx just to be on safe side; patient agreeable; will have such tomorrow on 04/29 #Anxiety/Depression - -Continue Sertraline 25mg po daily -Continue mirtazapine 15 mg HS -patient requests psych eval -- orders placed for behavioral health liasion consult and psychiatry consultation -he asked for ativan prn anxiety; ordered 0.5mg BID prn #Thrombocytopenia with leukopenia / pancytopenia -- ongoing - -etiology uncertain -respiratory bioFire fully negative -anaplasmosis DNA negative -babesia DNA negative -EBV panel with +early antigen IgG - this is often + during active disease, but IgM is negative; if he has had mono it has probably been in the last few months -sent EBV PCR -CMV IgM/IgG negative -parvo titers dispatched/pending -NHUNG negative earlier in March -heme/onc consult with Dr Hawk requested; bone marrow bx recommended, but she feels his CBC abnormalities are likely from splenomegaly -of note - B12/folate wnl; peripheral smear by pathology - no signs of hemolysis, TTP, or other abnormalities #constipation - -mod-severe, but improved last 2 days -miralax #hyperkalemia - resolved - -cont once daily Lokelma -BMP am #DVT ppx - -SCDs -stopped SQ heparin 04/22 2nd to low platelets and ?hemoptysis -resumed cautiously heparin 5000 BID as he is at high risk of VTE -cbc stable since resuming the heparin #LUQ Pain - -resolved -likely combo of constipation and perhaps even splenomegaly unfortunately patient was declined for transfer by [facility] and [facility] on 04/24/25 see my progress note from 04/24/25 for details of these phone calls again attempts to Tx patient to [facility] today unsuccessful patient made aware asks for attempt to Tx to [facility]; will attempt such on 04/29 remains extremely medically complex with ongoing PRES symptoms, headaches, uncontrolled BP, etc . discussed pt's care extensively with Dr Guevara from nephro today Admission and Anticipated Discharge Date Admission Date: April 20, 2025 Subjective this am placed call to [facility] via the transfer center spoke with hospital medicine/neurology/nephrology (Jose Cash, Nicolás, and Prosper) reviewed the case again with all 3 physicians discussed that we have exhausted all avenues of treatment for his symptoms, his BPs, etc and we have not made consistent or meaningful progress over the course of multiple hospital stays in the last month discussed further that all secondary work-up for HTN has been negative asked if nephrectomy of [place] kidneys would be option?? further, explained that family is now requesting transfer I hear about 5pm this afternoon that pt's transfer was declined by [facility] patient made aware -- he asks for attempt at Tx to [facility] headaches continue has ongoing visual disturbance from the left eye dizziness/vertigo persists eating well noted a slight cough today and throat congestion had reflux this am Review of Systems Review of Systems: gen - no fevers or chills cv - no chest pain pulm - no dyspnea GI - continues to move bowels Physical Exam Physical Exam: gen - lying in bed, looks similar to yesterday HENT - MMM; clearing his throat; voice slightly hoarse neck - no JVD chest - HD catheter in place right chest - clean heart - RRR, s1 s2, no murmur lungs - CTA b/l, no rales abd - soft, ND, BS+; NT ext - no edema, pulses 2+ b/l eyes - visual felix seemed full except for ?quandrantopia right superior quadrant? Results & Data Results & Data Vital Signs (Past 12 Hours) Vital Signs Temp Pulse Pulse Resp BP BP Pulse Ox 04/28/25 14:45 88 04/28/25 11:18 36.5 C 87 18 170/98 H 97 04/28/25 09:03 97 H 185/96 H 04/28/25 07:51 36.4 C L 85 20 98 04/28/25 07:40 85 O2 Del Method 04/28/25 14:45 04/28/25 11:18 Room Air 04/28/25 09:03 08/04/25 07:51 Room Air 04/28/25 07:40 Laboratory Results Laboratory Results - last 24 hr 04/22/25 04/23/25 04/24/25 15:02 08:29 07:54 WBC RBC Hgb Hct MCV MCH MCHC RDW Std Deviation RDW Coeff of Juliana Plt Count MPV Immature Gran % (Auto) Neut % (Auto) Lymph % (Auto) [place] % (Auto) Eos % (Auto) Baso % (Auto) Neut # (Auto) Lymph # (Auto) [place] # (Auto) Eos # (Auto) Baso # (Auto) Immature Gran # (Auto) Tear Drop Cells Renin 0.22 L Renin Activity 0.23 L Aldosterone <1 Aldosterone/Renin Ratio see note Urine Color Urine Appearance Urine pH Ur Specific [place] Urine Protein Urine Glucose (UA) Urine Ketones Urine Blood Urine Nitrite Urine Bilirubin Urine Urobilinogen Ur Leukocyte Esterase Urine WBC (Auto) Urine RBC (Auto) U Hyaline Cast (Auto) U Epithel Cells (Auto) Urine Bacteria (Auto) Urine Comment A. phagocytophilum DNA Negative CMV IgM Ab <30.00 CMV IgG Ab/TORCH <0.60 04/28/25 04/28/25 06:13 Unknown WBC 3.88 L RBC 2.68 L Hgb 7.8 L Hct 22.8 L MCV 85.1 MCH 29.1 MCHC 34.2 RDW Std Deviation 39.7 RDW Coeff of Juliana 13.0 Plt Count 89 L MPV 12.4 Immature Gran % (Auto) 0.3 Neut % (Auto) 49.2 Lymph % (Auto) 32.7 [place] % (Auto) 7.2 Eos % (Auto) 9.3 Baso % (Auto) 1.3 Neut # (Auto) 1.91 Lymph # (Auto) 1.27 [place] # (Auto) 0.28 Eos # (Auto) 0.36 Baso # (Auto) 0.05 Immature Gran # (Auto) 0.01 Tear Drop Cells 1+ Renin Renin Activity Aldosterone Aldosterone/Renin Ratio Urine Color Yellow Urine Appearance Clear Urine pH 7.5 Ur Specific [place] 1.014 Urine Protein 4+ H Urine Glucose (UA) 1+ H Urine Ketones Negative Urine Blood Trace H Urine Nitrite Negative Urine Bilirubin Negative Urine Urobilinogen Negative Ur Leukocyte Esterase Trace H Urine WBC (Auto) 11-20 H Urine RBC (Auto) 3-5 H U Hyaline Cast (Auto) 0-2 U Epithel Cells (Auto) 0-2 Urine Bacteria (Auto) None Seen Urine Comment A. phagocytophilum DNA CMV IgM Ab CMV IgG Ab/TORCH PG Care Time/CCT Total # of Minutes Spent Total Time Spent with Patient: Total time spent is greater than 50% in coordination of care (as documented) at patient's floor/unit and/or counseling patient: Coding Level of Care Code 67391 SUB INP/OBS CARE 3/50MIN Diagnoses Seizure R56.9 PRES (posterior reversible encephalopathy syndrome) I67.83 ESRD on hemodialysis N18.6; Z99.2 Acute intractable headache, unspecified headache type R51.9 Headache chronicity pattern: acute headache Headache type: unspecified Severe uncontrolled hypertension I10 Constipation K59.00 Thrombocytopenia D69.6 Hyperkalemia E87.5 FSGS (focal segmental glomerulosclerosis) N05.1 Hx of deep venous thrombosis Z86.718 Serologic abnormality R89.4 LUQ pain R10.12 Pancytopenia D61.818 (4) Intractable headache Headache chronicity pattern: acute headache Headache type: unspecified Qualified Code(s): R51.9 - Headache, unspecified
[2025-04-28] MEDS: LORazepam 0.5 MG TAB PO PRN (22:14)
[2025-04-29 06:23] LABS: Hematocrit (blood only) 21.3 % (42.0-52.0); Hemoglobin 7.3 g/dl (14.0-18.0); Mean Corpuscular Hemoglobin 29.4 pg (25.0-34.0); Mean Corpuscular Volume 85.9 fL (80.0-100.0); Platelet Count 92 K/uL (130-400); RDW Standard Deviation 41.1 fL (36.4-46.3); Red Blood Count 2.48 M/uL (4.70-6.10); White Blood Count 4.25 K/ul (4.8-10.8)
[2025-04-29 07:05] LABS: Anion Gap 12.0 (3-11); Blood Urea Nitrogen 97.0 mg/dl (6-23); Calcium 9.3 mg/dl (8.6-10.3); Carbon Dioxide 22.0 mmol/L (21-32); Chloride 96.0 mmol/L (98-107); Creatinine Clr Calc Pharmacy 9.7 ml/min; Glucose 88.0 mg/dl (70-99(Fasting)); Potassium 5.9 mmol/L (3.5-5.1); Sodium 130.0 mmol/L (136-145)
[2025-04-29] MEDS ORDERED: REMOVE CLONIDINE PATCH SCH (08:59)
[2025-04-29 09:18] LABS: Immature Granulocytes # (auto) 0.01 K/uL (0.01-0.20); Immature Granulocytes % (auto) 0.2 %
[2025-04-29 09:34] LABS: Bone Marrow Smear SLHOLD; Polychromasia 1+; Tear Drop Cells 1+
--- NOTE | 2025-04-29 10:35 | Nephrology Progress Note ---
Date of Service April 29, 2025 Assessment & Plan (1) End stage renal disease: (2) Hypertensive emergency: (3) Headache: (4) Hyperkalemia: (5) Nausea & vomiting: (6) Seizure: Plan 20-year-old male with end-stage kidney disease and hypertensive urgency, secondary to primary FSGS, started on dialysis. Admitted to the hospital with Seizure, headache and hypertensive emergency. w/u has been unremarkable. Blood pressure still elevated. Tolerating UF with HD -- continue torsemide 40 mg twice a day for now, if UO remains low, may consider stopping in future, low sodium diet -- ok to continue on Remeron 15 mg qhs for sleep -- continue labetalol 400 mg twice a day -- will keep off of Spironolactone considering hyperkalemia despite getting Lokelma daily and having regular dialysis. -- Continue on amlodipine, hydralazine, clonidine -- Minoxidil 10 mg daily --OK to use NSAID prn for headache --left arm nephrology precaution --on going discussion for possible transfer. Admission and Anticipated Discharge Date Admission Date: April 20, 2025 Dimas Payton was seen and evaluated this morning during hemodialysis. UF was set at 4 L so far he has been tolerating okay although blood pressure stayed same. Has not been having headache at this moment. Just had a bone marrow biopsy this morning and received multiple doses of fentanyl. Review of Systems Review of Systems: Detail ROS was done and pertinents as mentioned above Physical Exam Constitutional: WD/WN, vitals as above + ill appearing Eyes: + anicteric sclerae Respiratory: no respiratory distress Auscultation: lungs clear to auscultation bilaterally Cardiovascular: Rate/Rhythm: regular rate and regular rhythm Heart Sounds: normal S1 and normal S2 Extremities: + vascular access device (Rt IJ TDC); no edema Musculoskeletal: Extremities: extremities normal to inspection Skin: no rashes, warm and dry Neurologic: no focal motor deficits Psychiatric: Orientation: alert and oriented x 3 Affect: euthymic affect Results & Data Vital Signs (Past 12 Hours) Vital Signs Temp Pulse Pulse Resp BP Pulse Ox O2 Del Method 04/29/25 10:00 84 156/89 H 04/29/25 09:34 36.7 C 87 173/96 H 04/29/25 09:28 36.7 C 87 04/29/25 08:00 78 08/05/25 07:21 36.5 C 04/29/25 03:07 36.4 C L 16 94 Room Air 04/28/25 23:15 36.6 C 18 94 Room Air 04/28/25 22:46 80 PG Care Time/CCT Total # of Minutes Spent Total Time Spent with Patient: Total time spent is greater than 50% in coordination of care (as documented) at patient's floor/unit and/or counseling patient: Coding Level of Care Code 28395 SUB INP/OBS CARE 2/35MIN Diagnoses End stage renal disease N18.6 Hypertensive emergency I16.1 Other headache syndrome G44.89 Headache type: other headache syndrome Hyperkalemia E87.5 Nausea & vomiting R11.2 Seizure R56.9 (3) Headache Headache type: other headache syndrome Qualified Code(s): G44.89 - Other headache syndrome
[2025-04-29] MEDS: HYDROmorphone INJ 0.5 MG/0.5 ML SYR IV STA (12:53)
--- NOTE | 2025-04-29 13:29 | CT Scan Report ---
CT guided bone marrow biopsy INDICATION: Pancytopenia PROCEDURE: Procedure and risks were explained. Informed consent was obtained. A final timeout was com pleted. The patient was placed prone on the CT exam table. The left gluteal region was prepped and dr aped in sterile fashion. 1% lidocaine was utilized for skin anesthesia. The patient received 100 mcg fentanyl IV. Utilizing CT guidance, an 11-gauge bone biopsy needle was advanced into the left iliac bone. Multiple aspirates and 1 bone core was obtained and given to the lab. The needle was removed and Band-Aid zelda lied. The patient tolerated the procedure well. Vital signs will be monitored postprocedure. IMPRESSION: Bone marrow biopsy as above. Performed, dictated, and signed by Adalberto Chang PA-C; to be co-signed by Dr. Magdy Jones. Electronically signed by: Magdy Jones M.D. 04/29/2025 3:25 PM
--- NOTE | 2025-04-29 15:04 | Psychiatric Consultation ---
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 Psychiatry consulted for depression/anxiety evaluation. Presentation consistent with recurrent major depressive episodes with anxious distress. In addition to current stressors, pt has a genetic basis for depression. Associated panic symptoms related to fear of the future and discomfort of medical procedures. He would benefit from optimization of sertraline (primarily hepatic metabolism, no renal dose adjustment required), continuation of mirtazapine (partial renal clearance, recommend to remain on lower doses), and initiation of lorazepam PRN (recommend to start lower doses first). No imminent safety concerns identified. Pt would benefit from cognitive behavioral therapy to alleviate anxious ruminations. Overall, I spent a total of 80 minutes with this case including review of chart records, nursing report, review of lab work, direct evaluation of the patient at bedside, counseling the patient, discussion of the patient with the hospitalist provider, discussion with the psychiatric liaison during clinical rounds, and documentation in the electronic health record. 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 Psychiatry consulted for depression/anxiety evaluation. Chief Complaint "Anxiety and depression at maximum" History of Present Illness Patient complains of worsening depression and feels medications are needed. Reports having his renal condition since and is idiopathic in nature. Reports a past seizures and cardiac arrest. Feels hopeless asking "why me". Says he is a prime candidate for renal transplant. Complains of physical fatigue associated with his condition. Reports feeling depressed for years since joshua year of high school and now depressive episodes are lasting up to 3 weeks at a time. Reports multiple past depressive episodes. Complains of difficulty staying asleep, loss of appetite, excessive guilt, anhedonia, decreased energy, decreased concentration, loss of self-esteem. Intermittent passive suicidal ideation. Denies currently. Has trouble engaging in coping skills like exercise due to his condition. Reports an increase in anxious ruminations feeling hopeless about his situation and this leads to panic attacks 2-3 times weekly with internal feelings of doom and elevated heart rate. Reports mother is being treated for major depression and father and brother have anger issues. Denies childhood trauma or abuse. Allergies Allergy/AdvReac Type Severity Reaction Status Date / Time No Known Allergies Allergy Unknown Verified 04/17/25 11:25 Home Medications Medication Instructions Recorded Confirmed Type hydroxyzine HCl 25 mg tablet 25 mg PO TID PRN anxiety #90 tabs 11/13/24 04/15/25 Rx amlodipine 10 mg tablet 10 mg PO QAM #90 tabs 01/29/25 04/20/25 Rx calcium acetate(phosphat bind) 667 1,334 mg (2 x 667 mg) PO TIDM 90 01/29/25 04/20/25 Rx mg capsule days #540 caps cholecalciferol (vitamin D3) 125 125 mcg PO QAM #90 tabs 01/29/25 04/20/25 Rx mcg (5,000 unit) tablet Medical Marijuana 1 dose PO DIRECTED PRN Other 03/14/25 04/15/25 History clonidine HCl 0.3 mg tablet 0.3 mg PO DAILY #30 tabs 04/06/25 04/15/25 Rx prochlorperazine maleate 10 mg 10 mg PO Q8H PRN nausea and 04/15/25 Rx tablet (Compazine) vomiting 5 days #15 tabs clonidine 0.3 mg/24 hr weekly 0.3 mg transdermal Q7D 04/17/25 04/20/25 History transdermal patch ketoconazole 2 % topical cream 1 applic topical .every other day 04/17/25 04/20/25 History PRN Rash labetalol 200 mg tablet 400 mg PO BID 04/17/25 04/20/25 History losartan 50 mg tablet 50 mg PO BID 04/17/25 04/20/25 History minoxidil 2.5 mg tablet 5 mg (2 x 2.5 mg) PO DAILY #30 tabs 04/17/25 04/17/25 Rx sertraline 25 mg tablet 25 mg PO DAILY #30 tabs 04/17/25 04/20/25 Rx torsemide 20 mg tablet 40 mg PO BID 04/17/25 04/20/25 History rimegepant 75 mg disintegrating 75 mg PO Q OTHER DAY #8 tabs 04/23/25 Rx tablet (Nurtec ODT) Patient History Medical History Hx of metabolic acidosis Anticoagulated on Coumadin pt states he has not been taking his Coumadin since apprx mid January 2025 Dialysis patient [facility] in [place] > //sat History of postoperative nausea and vomiting Hx of deep venous thrombosis 01/2024 > right arm > was on warfarin > now DC'ed Cardiac murmur Anemia FSGS (focal segmental glomerulosclerosis) Generalized anxiety disorder Thrombophilia End stage renal disease follows with Dr. Mcdermott - HD 3x per week:[facility] in [place] > //sat CKD (chronic kidney disease) Hypertension recently added clonidine 0.[address] mcdermott Surgical History S/P hemodialysis catheter insertion (12/2024) perm cath for HD- right jugular S/P left knee arthroscopy H/O hernia repair Family History Mother Diabetes Grandfather (Maternal) Hypertension Other No family history of adverse response to anesthesia Denies family history of Ovarian cancer Prostate cancer Myocardial infarction Breast cancer Lung cancer Stroke Social History Smoking Status: Never smoker Tobacco Type: Smokeless Tobacco (Dip or Chew) Smoking End Date: quit 1 year ago; Second Hand Exposure: No; Do You Dip or Chew Tobacco: No; Tobacco Cessation Education Requested by Patient: No Hx Alcohol Use: No Hx Substance Use: No Preferred Language: Omani Communication Ability: Effective Visual Impairment: No Limitations Hearing Ability: Normal Parole Or Probation Officer Required: No Beliefs That Will Affect Care: Spiritual marital status: Single Current Living Situation: Parent Current Living Situation Comment: lives at home with family current occupational status: employed 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 How many Children do You have: 0 Other Information That Helps Us Care for You: No Feels Safe at Home: Yes Safety Concerns: Feels Safe At This Time Childhood Exposure to Second-Hand Smoke: No caffeine: No Dental Care, Regularly: Yes Physical Activity Frequency: 5-6 Times per Week Seatbelt Use: always Sunscreen Use: No Assistive Devices: None Physical Exam Mental Examination: Appearance: Well Groomed Eye Contact: Maintains Eye Contact Motor Behavior: Unremarkable Speech: Normal Mood: Calm Affect: Anxious, Constricted and Sad Thought Process: Intact and Linear Thought Content: Intact Hallucinations: None Insight: Fair Judgement: Fair Vital Signs (Past 24 Hours): Last Vital Signs Temp 36.5 C 04/29/25 14:08 Pulse 81 04/29/25 14:08 Resp 16 04/29/25 14:08 BP 175/106 H 04/29/25 14:08 Pulse Ox 98 04/29/25 14:08 O2 Del Method Room Air 04/29/25 14:08 Results & Data (PSY) Medications Administered Acetaminophen (Acetaminophen 325 Mg Tab) 650 mg PO Q6H MOOSE Stop: 05/21/25 10:29 Last Admin: 04/29/25 10:53 Dose: 650 mg Documented By: Admin: 04/29/25 03:27 Dose: 650 mg Documented By: Admin: 04/28/25 22:10 Dose: 650 mg Documented By: Admin: 04/28/25 15:59 Dose: 650 mg Documented By: Admin: 04/28/25 10:16 Dose: 650 mg Documented By: Admin: 04/28/25 04:18 Dose: 650 mg Documented By: Admin: 04/27/25 21:51 Dose: 650 mg Documented By: Admin: 04/27/25 16:07 Dose: 650 mg Documented By: Admin: 04/27/25 11:13 Dose: 650 mg Documented By: Admin: 04/27/25 04:42 Dose: 650 mg Documented By: Admin: 04/26/25 21:46 Dose: 650 mg Documented By: Admin: 04/26/25 17:16 Dose: 650 mg Documented By: Admin: 04/26/25 13:15 Dose: 650 mg Documented By: RJLincoln Admin: 04/26/25 05:00 Dose: 650 mg Documented By: Admin: 04/25/25 21:51 Dose: 650 mg Documented By: Admin: 04/25/25 16:15 Dose: 650 mg Documented By: Admin: 04/25/25 09:30 Dose: 650 mg Documented By: Admin: 04/25/25 04:52 Dose: 650 mg Documented By: Admin: 04/24/25 21:35 Dose: 650 mg Documented By: Admin: 04/24/25 18:00 Dose: Not Given Documented By: Admin: 04/24/25 08:45 Dose: 650 mg Documented By: Admin: 04/24/25 04:24 Dose: 650 mg Documented By: Admin: 04/23/25 22:24 Dose: 650 mg Documented By: Admin: 04/23/25 16:55 Dose: 650 mg Documented By: Admin: 04/23/25 11:45 Dose: 650 mg Documented By: Admin: 04/23/25 06:27 Dose: Not Given Documented By: Admin: 04/22/25 21:36 Dose: 650 mg Documented By: Admin: 04/22/25 18:25 Dose: 650 mg Documented By: Admin: 04/22/25 09:29 Dose: Not Given Documented By: Admin: 04/22/25 03:37 Dose: 650 mg Documented By: Admin: 04/21/25 22:19 Dose: 650 mg Documented By: Admin: 04/21/25 15:33 Dose: 650 mg Documented By: K Admin: 04/21/25 10:39 Dose: 650 mg Documented By: TAMIKO Amlodipine Besylate (Amlodipine Besylate 5 Mg Tab) 10 mg PO QAM [facility] Stop: 05/20/25 08:59 Last Admin: 04/29/25 08:11 Dose: 10 mg Documented By: Admin: 04/28/25 08:08 Dose: 10 mg Documented By: Admin: 04/27/25 07:57 Dose: 10 mg Documented By: Admin: 04/26/25 08:04 Dose: 10 mg Documented By: Admin: 04/25/25 09:16 Dose: 10 mg Documented By: Admin: 04/24/25 08:40 Dose: 10 mg Documented By: Admin: 04/23/25 09:04 Dose: 10 mg Documented By: Admin: 04/22/25 09:20 Dose: 10 mg Documented By: Admin: 04/21/25 07:39 Dose: 10 mg Documented By: K Admin: 04/20/25 08:18 Dose: 10 mg Documented By: K Calcium Acetate (Calcium Acetate 667 Mg Cap/Tab) 1,334 mg PO TIDM MOOSE Stop: 05/20/25 07:59 Last Admin: 04/29/25 14:07 Dose: Not Given Documented By: Admin: 04/29/25 08:10 Dose: 1,334 mg Documented By: Admin: 04/28/25 16:00 Dose: 1,334 mg Documented By: Admin: 04/28/25 12:20 Dose: 1,334 mg Documented By: Admin: 04/28/25 08:07 Dose: 1,334 mg Documented By: Admin: 04/27/25 16:07 Dose: 1,334 mg Documented By: RJLincoln Admin: 04/27/25 11:13 Dose: 1,334 mg Documented By: RJLincoln Admin: 04/27/25 07:57 Dose: 1,334 mg Documented By: RJLincoln Admin: 04/26/25 17:16 Dose: 1,334 mg Documented By: Admin: 04/26/25 13:05 Dose: 1,334 mg Documented By: Admin: 04/26/25 08:05 Dose: 1,334 mg Documented By: Admin: 04/25/25 16:16 Dose: 1,334 mg Documented By: Admin: 04/25/25 12:18 Dose: 1,334 mg Documented By: Admin: 04/25/25 09:12 Dose: 1,334 mg Documented By: Admin: 04/24/25 14:27 Dose: 1,334 mg Documented By: Admin: 04/24/25 12:11 Dose: Not Given Documented By: Admin: 04/24/25 08:39 Dose: 1,334 mg Documented By: Admin: 04/23/25 16:47 Dose: 1,334 mg Documented By: Admin: 04/23/25 11:46 Dose: 1,334 mg Documented By: Admin: 04/23/25 09:03 Dose: 1,334 mg Documented By: Admin: 04/22/25 18:28 Dose: Not Given Documented By: Admin: 04/22/25 14:49 Dose: Not Given Documented By: Admin: 04/22/25 08:40 Dose: Not Given Documented By: Admin: 04/21/25 18:27 Dose: Not Given Documented By: Admin: 04/21/25 13:26 Dose: Not Given Documented By: Admin: 04/21/25 07:37 Dose: 1,334 mg Documented By: Admin: 04/20/25 18:06 Dose: Not Given Documented By: Admin: 04/20/25 12:32 Dose: Not Given Documented By: Admin: 04/20/25 08:19 Dose: 1,334 mg Documented By: TAMIKO Docusate Sodium (Docusate Sodium 100 Mg Cap) 100 mg PO BID PRN PRN Reason: Constipation Stop: 05/20/25 01:57 Last Admin: 04/28/25 10:18 Dose: 100 mg Documented By: Admin: 04/27/25 20:59 Dose: 100 mg Documented By: Admin: 04/27/25 05:04 Dose: 100 mg Documented By: Admin: 04/22/25 08:41 Dose: 100 mg Documented By: TAMIKO Gabapentin (Gabapentin 100 Mg Cap) 100 mg PO BID MOOSE Stop: 05/24/25 20:59 Last Admin: 04/29/25 08:11 Dose: 100 mg Documented By: Admin: 04/28/25 20:22 Dose: 100 mg Documented By: Admin: 04/28/25 08:08 Dose: 100 mg Documented By: Admin: 04/27/25 21:01 Dose: 100 mg Documented By: Admin: 04/27/25 07:58 Dose: 100 mg Documented By: Admin: 04/26/25 21:01 Dose: 100 mg Documented By: Admin: 04/26/25 08:05 Dose: 100 mg Documented By: Admin: 04/25/25 20:13 Dose: 100 mg Documented By: Admin: 04/25/25 09:14 Dose: 100 mg Documented By: Admin: 04/24/25 21:36 Dose: 100 mg Documented By: JESSE Heparin Sodium (Porcine) (Heparin Sod 5,000 Unit/0.5 Ml Vial) 5,000 units SQ Q12 MOOSE Stop: 05/25/25 20:59 Last Admin: 04/29/25 08:24 Dose: 5,000 units Documented By: Admin: 04/28/25 20:22 Dose: Not Given Documented By: Admin: 04/28/25 08:23 Dose: 5,000 units Documented By: Admin: 04/27/25 20:59 Dose: 5,000 units Documented By: Admin: 04/27/25 09:37 Dose: 5,000 units Documented By: Admin: 04/26/25 21:00 Dose: 5,000 units Documented By: Admin: 04/26/25 08:04 Dose: 5,000 units Documented By: Admin: 04/25/25 21:51 Dose: 5,000 units Documented By: JESSE Hydromorphone HCl (Hydromorphone Cable Tool Driller 30 Mg/30 Ml) 30 mg IV PRN PRN; Protocol PRN Reason: ENGINEERING SURVEYOR Pain Titration Stop: 05/10/25 14:29 Last Admin: 04/26/25 20:20 Dose: 1 mg Documented By: RHONDA Co-signed By: JESSE Admin: 04/26/25 15:17 Dose: 30 mg Documented By: KAR Co-signed By: TAN Hydromorphone HCl (Hydromorphone Inj 1 Mg/Ml Syringe) 1 mg IV Q4H PRN PRN Reason: Pain 6,7,8,9,10 Stop: 05/10/25 20:21 Last Admin: 04/29/25 14:52 Dose: 1 mg Documented By: Admin: 04/29/25 10:53 Dose: 1 mg Documented By: Admin: 04/29/25 03:27 Dose: 1 mg Documented By: Admin: 04/28/25 19:29 Dose: 1 mg Documented By: Admin: 04/28/25 13:19 Dose: 1 mg Documented By: Admin: 04/28/25 09:13 Dose: 1 mg Documented By: Admin: 04/28/25 04:17 Dose: 1 mg Documented By: Admin: 04/27/25 18:42 Dose: 1 mg Documented By: Admin: 04/27/25 13:40 Dose: 1 mg Documented By: Admin: 04/27/25 09:36 Dose: 1 mg Documented By: Admin: 04/27/25 05:05 Dose: 1 mg Documented By: Admin: 04/26/25 22:26 Dose: 1 mg Documented By: JESSE Labetalol HCl (Labetalol Hcl 200 Mg Tab) 400 mg PO TID MOOSE Stop: 05/20/25 13:59 Last Admin: 04/29/25 14:11 Dose: 400 mg Documented By: Admin: 04/29/25 08:12 Dose: 400 mg Documented By: Admin: 04/28/25 20:22 Dose: 400 mg Documented By: Admin: 04/28/25 13:19 Dose: 400 mg Documented By: Admin: 04/28/25 08:09 Dose: 400 mg Documented By: Admin: 04/27/25 21:01 Dose: 400 mg Documented By: Admin: 04/27/25 14:57 Dose: 400 mg Documented By: Admin: 04/27/25 07:59 Dose: 400 mg Documented By: Admin: 04/26/25 21:01 Dose: 400 mg Documented By: Admin: 04/26/25 13:22 Dose: 400 mg Documented By: Admin: 04/26/25 08:04 Dose: 400 mg Documented By: Admin: 04/25/25 20:13 Dose: 400 mg Documented By: Admin: 04/25/25 15:01 Dose: 400 mg Documented By: Admin: 04/25/25 09:16 Dose: 400 mg Documented By: Admin: 04/24/25 19:52 Dose: 400 mg Documented By: Admin: 04/24/25 13:51 Dose: 400 mg Documented By: Admin: 04/24/25 08:41 Dose: 400 mg Documented By: Admin: 04/23/25 20:35 Dose: 400 mg Documented By: Admin: 04/23/25 15:27 Dose: 400 mg Documented By: Admin: 04/23/25 09:03 Dose: 400 mg Documented By: Admin: 04/22/25 21:37 Dose: 400 mg Documented By: Admin: 04/22/25 14:47 Dose: 400 mg Documented By: Admin: 04/22/25 09:20 Dose: 400 mg Documented By: Admin: 04/21/25 20:43 Dose: 400 mg Documented By: Admin: 04/21/25 15:35 Dose: 400 mg Documented By: Admin: 04/21/25 07:39 Dose: 400 mg Documented By: Admin: 04/20/25 21:28 Dose: 400 mg Documented By: Admin: 04/20/25 15:57 Dose: 400 mg Documented By: K Labetalol HCl (Labetalol Hcl Iv 5 Mg/Ml 20ml) 10 mg IV Q4H PRN PRN Reason: sbp > 170 or dbp> 105 Stop: 05/20/25 02:09 Last Admin: 04/28/25 08:04 Dose: 10 mg Documented By: KELLY Levetiracetam (Levetiracetam 500 Mg/5 Ml Vial 1000mg) 1,000 mg IV Q24H MOOSE Stop: 05/20/25 14:59 Last Admin: 04/29/25 14:55 Dose: 1,000 mg Documented By: Admin: 04/28/25 15:13 Dose: 1,000 mg Documented By: Admin: 04/27/25 14:57 Dose: 1,000 mg Documented By: Admin: 04/26/25 14:30 Dose: 1,000 mg Documented By: Admin: 04/25/25 16:55 Dose: 1,000 mg Documented By: RJLincoln Admin: 04/25/25 15:06 Dose: Not Given Documented By: Admin: 04/24/25 14:27 Dose: 1,000 mg Documented By: Admin: 04/23/25 15:27 Dose: 1,000 mg Documented By: Admin: 04/22/25 14:46 Dose: 1,000 mg Documented By: Admin: 04/21/25 15:34 Dose: 1,000 mg Documented By: Admin: 04/20/25 15:58 Dose: 1,000 mg Documented By: TAMIKO Lorazepam (Lorazepam 2 Mg/1 Ml Vial) 0.5 mg IV ONE PRN PRN Reason: unrelieved headache Stop: 05/22/25 14:05 Last Admin: 04/28/25 10:16 Dose: 0.5 mg Documented By: Admin: 04/28/25 05:13 Dose: 0.5 mg Documented By: Admin: 04/27/25 20:59 Dose: 0.5 mg Documented By: Admin: 04/27/25 16:59 Dose: 0.5 mg Documented By: Admin: 04/27/25 12:09 Dose: 0.5 mg Documented By: Admin: 04/26/25 12:24 Dose: 0.5 mg Documented By: Admin: 04/26/25 08:00 Dose: 0.5 mg Documented By: Admin: 04/24/25 14:38 Dose: 0.5 mg Documented By: Admin: 04/24/25 10:22 Dose: 0.5 mg Documented By: Admin: 04/22/25 18:43 Dose: 0.5 mg Documented By: TAMIKO Lorazepam (Lorazepam 0.5 Mg Tab) 0.5 mg PO Q12H PRN PRN Reason: Anxiety Stop: 05/28/25 19:17 Last Admin: 04/28/25 22:14 Dose: 0.5 mg Documented By: ELENI Minoxidil (Minoxidil 2.5 Mg Tab) 10 mg PO QAM [facility] Stop: 05/28/25 08:59 Last Admin: 04/29/25 08:12 Dose: 10 mg Documented By: Admin: 04/28/25 08:10 Dose: 10 mg Documented By: KELLY Mirtazapine (Mirtazapine Tab 15 Mg Tab) 15 mg PO HS MOOSE Stop: 05/21/25 20:59 Last Admin: 04/28/25 20:22 Dose: 15 mg Documented By: Admin: 04/27/25 21:02 Dose: 15 mg Documented By: Admin: 04/26/25 21:01 Dose: 15 mg Documented By: Admin: 04/25/25 20:11 Dose: 15 mg Documented By: Admin: 04/24/25 19:52 Dose: 15 mg Documented By: Admin: 04/23/25 20:35 Dose: 15 mg Documented By: Admin: 04/22/25 21:37 Dose: 15 mg Documented By: Admin: 04/21/25 20:43 Dose: 15 mg Documented By: EMIL Ondansetron HCl (Ondansetron Inj 2 Mg/Ml 2 Ml Vial) 4 mg IV Q6H PRN PRN Reason: Nausea And Vomiting Stop: 05/20/25 01:57 Last Admin: 04/29/25 10:53 Dose: 4 mg Documented By: Admin: 04/28/25 19:29 Dose: 4 mg Documented By: Admin: 04/26/25 10:48 Dose: 4 mg Documented By: Admin: 04/24/25 10:22 Dose: 4 mg Documented By: Admin: 04/21/25 12:14 Dose: 4 mg Documented By: Admin: 04/20/25 12:26 Dose: 4 mg Documented By: TAMIKO Oxymetazoline HCl (Oxymetazoline 0.05% 30 Ml Btl) 2 - 4 sprays NA DAILY PRN PRN Reason: epistaxis Stop: 05/23/25 08:59 Last Admin: 04/25/25 09:17 Dose: 2 sprays Documented By: KAR Polyethylene Glycol (Polyethylene (Miralax) 17 Gm Pack) 17 gm PO DAILY [facility] Stop: 05/23/25 11:14 Last Admin: 04/29/25 08:12 Dose: 17 gm Documented By: Admin: 04/28/25 08:23 Dose: 17 gm Documented By: Admin: 04/27/25 08:00 Dose: 17 gm Documented By: Admin: 04/26/25 08:04 Dose: 17 gm Documented By: Admin: 04/25/25 09:33 Dose: Not Given Documented By: Admin: 04/24/25 08:45 Dose: Not Given Documented By: Admin: 04/23/25 15:25 Dose: 17 gm Documented By: BRITTANY Sertraline HCl (Sertraline Hcl 50 Mg Tablet) 25 mg PO DAILY MOOSE Stop: 05/20/25 08:59 Last Admin: 04/29/25 08:13 Dose: 25 mg Documented By: Admin: 04/28/25 08:12 Dose: 25 mg Documented By: Admin: 04/27/25 07:59 Dose: 25 mg Documented By: Admin: 04/26/25 08:06 Dose: 25 mg Documented By: Admin: 04/25/25 09:14 Dose: 25 mg Documented By: Admin: 04/24/25 08:41 Dose: 25 mg Documented By: Admin: 04/23/25 09:04 Dose: 25 mg Documented By: LUIS EK Admin: 04/22/25 09:20 Dose: 25 mg Documented By: Admin: 04/21/25 07:40 Dose: 25 mg Documented By: K Admin: 04/20/25 08:19 Dose: 25 mg Documented By: TAMIKO Sodium Chloride (Sodium Chloride 0.65% Na Soln 45 Ml (Mono)) 2 sprays NA BID MOOSE Stop: 05/22/25 20:59 Last Admin: 04/29/25 08:13 Dose: 2 sprays Documented By: Admin: 04/28/25 20:23 Dose: 2 sprays Documented By: Admin: 04/28/25 08:13 Dose: 2 sprays Documented By: Admin: 04/27/25 21:02 Dose: 2 sprays Documented By: Admin: 04/27/25 08:01 Dose: 2 sprays Documented By: Admin: 04/26/25 21:01 Dose: 2 sprays Documented By: Admin: 04/26/25 08:07 Dose: 2 sprays Documented By: Admin: 04/25/25 20:12 Dose: 2 sprays Documented By: Admin: 04/25/25 09:18 Dose: 2 sprays Documented By: Admin: 04/24/25 19:51 Dose: 2 sprays Documented By: Admin: 04/24/25 08:45 Dose: 2 sprays Documented By: Admin: 04/23/25 20:37 Dose: 2 sprays Documented By: Admin: 04/23/25 09:08 Dose: 2 sprays Documented By: Admin: 04/22/25 21:37 Dose: 2 sprays Documented By: EMIL Sodium Zirconium Cyclosilicate (Sodium Zirconium Cyclosilicate 10 Gm Packet) 10 gm PO DAILY@1100 MOOSE Stop: 05/26/25 10:59 Last Admin: 04/29/25 14:11 Dose: 10 gm Documented By: Admin: 04/28/25 10:16 Dose: 10 gm Documented By: Admin: 04/27/25 11:13 Dose: 10 gm Documented By: Admin: 04/26/25 13:05 Dose: 10 gm Documented By: KAR Spironolactone (Spironolactone 25 Mg Tab) 50 mg PO QAM MOOSE Stop: 05/25/25 08:59 Last Admin: 04/28/25 08:10 Dose: 50 mg Documented By: Admin: 04/27/25 08:00 Dose: 50 mg Documented By: KAR Torsemide (Torsemide 20 Mg Tab) 40 mg PO BID MOOSE Stop: 05/20/25 08:59 Last Admin: 04/29/25 08:14 Dose: 40 mg Documented By: Admin: 04/28/25 20:22 Dose: 40 mg Documented By: Admin: 04/28/25 08:09 Dose: 40 mg Documented By: Admin: 04/27/25 21:01 Dose: 40 mg Documented By: Admin: 04/27/25 08:00 Dose: 40 mg Documented By: Admin: 04/26/25 21:01 Dose: 40 mg Documented By: Admin: 04/26/25 08:07 Dose: 40 mg Documented By: Admin: 04/25/25 20:11 Dose: 40 mg Documented By: Admin: 04/25/25 09:17 Dose: 40 mg Documented By: Admin: 04/24/25 19:52 Dose: 40 mg Documented By: Admin: 04/24/25 08:42 Dose: 40 mg Documented By: Admin: 04/23/25 20:35 Dose: 40 mg Documented By: Admin: 04/23/25 09:06 Dose: 40 mg Documented By: LUIS EK Admin: 04/22/25 21:36 Dose: 40 mg Documented By: Admin: 04/22/25 09:21 Dose: 40 mg Documented By: Admin: 04/21/25 20:43 Dose: 40 mg Documented By: Admin: 04/21/25 07:38 Dose: 40 mg Documented By: Admin: 04/20/25 21:28 Dose: 40 mg Documented By: Admin: 04/20/25 08:20 Dose: 40 mg Documented By: TAMIKO Vitamin D (Cholecalciferol 125 Mcg (5,000 Units) Tab) 125 mcg PO QAM MOOSE Stop: 05/20/25 08:59 Last Admin: 04/29/25 08:11 Dose: 125 mcg Documented By: Admin: 04/28/25 08:08 Dose: 125 mcg Documented By: Admin: 04/27/25 07:58 Dose: 125 mcg Documented By: Admin: 04/26/25 08:05 Dose: 125 mcg Documented By: Admin: 04/25/25 09:15 Dose: 125 mcg Documented By: Admin: 04/24/25 08:42 Dose: 125 mcg Documented By: Admin: 04/23/25 09:06 Dose: 125 mcg Documented By: Admin: 04/22/25 09:21 Dose: 125 mcg Documented By: Admin: 04/21/25 07:38 Dose: 125 mcg Documented By: Admin: 04/20/25 08:20 Dose: 125 mcg Documented By: [place] [address] IN/OBS CONSULT LVL 5,80M Patient Type New History Comprehensive Exam Comprehensive Medical Decision Making High Complexity Diagnoses MDD (major depressive disorder), recurrent episode, severe F33.2 ESRD on hemodialysis N18.6; Z99.2 Seizure R56.9 Fatigue R53.83
[2025-04-29] MEDS: HYDROmorphone INJ 1 MG/ML SYRINGE IV STA (16:22)
--- NOTE | 2025-04-29 20:20 | Hospitalist Progress Note ---
Date of Service April 29, 2025 Assessment & Plan (1) Seizure: (2) PRES (posterior reversible encephalopathy syndrome): (3) ESRD on hemodialysis: (4) Intractable headache: (5) Severe uncontrolled hypertension: (6) Constipation: (7) Thrombocytopenia: (8) Hyperkalemia: (9) FSGS (focal segmental glomerulosclerosis): (10) Hx of deep venous thrombosis: (11) Serologic abnormality: (12) LUQ pain: (13) Pancytopenia: Plan 20yo male - ESRD on HD due to FSGN - presented with two witnessed seizures and markedly elevated BPs. MRI brain this admission with findings c/w PRES. He had a seizure during a prior admission in early March as well thought 2nd to PRES as MRI brain during that admission also c/w PRES. #PRES with seizures - -MRI brain x 2 (early March, then this admission) c/w PRES -Triggers of PRES - HTN; ESRD/CKD -no evidence of any autoimmune disease to date -BP control is paramount but has proven exceptionally difficult despite considerable efforts by nephrology; their assistance is very much appreciated -continue keppra IV 1gm daily for seizure prophylaxis; can change this to PO at any time; give after HD sessions -now also on gabapentin for headaches which will provide some seizure prophy as well -will need keppra for at least 3 months -of note - previous NHUNG, ANCA, etc all negative; CRP low at 1.1 -EEG negative for seizure focus -amyloid light chains negative -PRES is the cause of his visual complaints, ataxia, vertigo, severe headaches, etc. -appreciate neurology assistance to date -spoke with neurology at [facility] as well as [facility] last week -[place] neurolog[facility] advised systolic BP goal to be <140 -they also recommended consideration of gabapentin or lyrica or similar for headache prophylaxis; gabapentin 100mg BID added - tolerating this #Severe uncontrolled hypertension - -ongoing despite numerous BP meds and multiple med trials -secondary causes of HTN highly suspected but work-up negative -CTA renal arteries negative for FLORA -renin/mynor levels returned; no hyper-mynor -catecholamines negative about 2 weeks ago; plasma metanephrines this admission returned negative -TSH not c/w hyperthyroidism -he does not have obvious AIMEE, and overnight oximetry study checked and was very normal -anti-hypertensive med regimen: -minoxidil 10mg daily -Labetalol 400mg tid -Amlodipine 10mg po daily -Torsemide 40mg po BID -aldactone 50mg daily -- placed on hold this am due to recurrent hyperkalemia -clonidine patch and losartan were d/c earlier in the admission -cont labetalol 10mg IV q 4 hours as needed for SBP > 170 - needing this about 1x/day, sometimes 2x's -BPs have remained resistant to all BP meds and treatments -appreciate nephrology assistance -spoke with Dr Guevara - -since he has had recurrent hyperkalemia despite Low K diet, daily Lokelma, and his typical dialysis will STOP spironolactone -start back clonidine 0.1mg TID -could the patient ultimately require nephrectomy for refractory/recalcitrant HTN - especially given the severe PRES?? # epistaxis vs hemoptysis - has not recurred - -by report coughed up 2-3 Tbsp marleen blood last week -s/p pulmonary consultation by Dr. Vogel -- hemoptysis NOT suspected; upper respiratory/sinus source suspected -CT sinuses with mild chronic-appearing sinus inflammation rather than acute sinusitis -abx stopped -he is at high risk of DVT/PE in light of hypercoagulability, immobility, etc. -thus, started back heparin 5000 BID for DVT proph cautiously; still no bleeding issues since adding back the heparin SC #Intractable headache - -2nd to PRES/uncontrolled HTN -ongoing despite IV pain meds, dexamethasone, attempts to control BP, reglan, IV depakote, ativan, etc. -imaging w/o ICH -MRV head negative for dural thrombosis -no evidence of meningitis on examination -discussions with neuro about headache control -- we were going to pursue a trial of Nurtec ODT QOD - unfortunately it is contraindicated in ESRD patients due to lack of proper study in this patient population; patient counseled and thus holding the med -use of steroids is controversial with PRES - some data available that it can help headache, some data that they can make PRES worse -defer on steroids -cont gabapentin 100mg BID as suggested by [place] [facility] for headache prophy; consider dose increase to 200mg BID -cont dilaudid prn -cont ativan prn -cont tylenol scheduled -since he has prominent dysequilibrium and vertigo gave a dose of meclizine but he did not notice any improvement in any symptoms #ESRD secondary to FSGS on HD - -Continue Phoslo -HD 3 days/week -Nephrology HD management much appreciated #Hepatosplenomegaly and pancytopenia - -etiology? -viral? tick-borne infection? -metabolic disorder? -other? -in light of severe LVH/cardiomegaly (which could be 2nd to severely uncontrolled HTN) - infiltrative disease such as amyloid? -kappa/lambda light chains returned negative however -recent ferritin and transferrin saturation not elevated, thus hemochromatosis unlikely -sarcoidosis unlikely - OC level normal -EBV panel with possible mono (later stage) but EBV PCR NEGATIVE -CMV titers negative -parvovirus titers negative -anaplasmosis/babesia DNA both negative -respiratory BioFire negative -NHUNG negative -B12/folate/TSH wnl -peripheral smear by pathology -- no signs of hemolysis, TTP, or other abnormalities -Dr Hawk from heme/onc provided consultation and in light of hepatosplenomegaly and pancytopenia she advised bone marrow bx -this was completed today, 04/29 -cbc in am -getting close to needing PRBCs #Anxiety/Depression - -Continue Sertraline 25mg po daily -Continue mirtazapine 15 mg HS -patient requested psych eval -- behavioral health liasion and psychiatry consultations appreciated -ativan 0.5mg BID prn anxiety -appreciate psych assistance #constipation - -mod-severe, but improved last 2-3 days -opiate related -cont miralax #hyperkalemia - had resolved, now recurred with use of aldactone - -stop aldacotne -cont once daily [facility] am #DVT ppx - -resumed cautiously heparin 5000 BID as he is at high risk of VTE -no evidence of any bleeding issues from the heparin unfortunately patient was declined for transfer by [facility] and [facility] on 04/24/25 see my progress note from 04/24/25 for details of these phone calls attempted to Tx patient [place] [facility] [place] 04[place]28 - again unsuccessful; [facility] advised ongoing Rx of his HTN and felt they could not offer anything beyond what we were currently doing for 2 days patient then requested Tx to [facility] if [facility] was not successful; we had discussed [facility] over the weekend but at that time was not interested called & spoke with Dr Laura Solis, [facility] medicine, at [facility] today - 04/29 about 1630 today we heard that patient WAS accepted in transfer to [facility] in [place] about 1700 I went back to pt's room to give him the news of his acceptance to [facility] he replied by saying that "we have changed our minds; we want to go to [facility]" he explained that they felt [place] was too far geographically I HIGHLY RECOMMENDED that he keep the plan of going to [place] explained we have tried for 5+ days to get him accepted at multiple institutions (to no avail until today) and that changing the plan would potentially delay his care further I told him that we would not cancel his transfer at this time and that, if in e end he truly desired transfer to [facility], this would have to be done on a different date again, however, HIGHLY RECOMMENDED he NOT cancel his transfer to [facility] transfer paper work was completed remains extremely medically complex with ongoing PRES symptoms, headaches, uncontrolled BP, etc . again discussed pt's care extensively with Dr Guevara from nephro today total time today 90 minutes including phone calls to [facility], multiple correspondences with Dr Guevara, multiple bedside visits, complex care coordination Admission and Anticipated Discharge Date Admission Date: April 20, 2025 Subjective patient underwent bone marrow biopsy this am without incident he has had pain in his pelvic bone since the biopsy had dialysis treatment -- headache, ocular symptoms worse during HD today saw patient post-HD -- was resting in bed he c/o headache and diplopia along with pelvic bone pain from his biopsy eating is excellent tele - wnl, NSR called and spoke with [facility] - Dr Laura Solis, [facility] medicine - via transfer center late afternoon we heard that Kvng was accepted to [facility] in [place] Review of Systems Review of Systems: cv - no chest pain pulm - no dyspnea GI - no pain today Physical Exam Physical Exam: gen - lying in bed, looks very tired today HENT - MMM neck - no JVD heart - RRR, s1 s2, no murmur lungs - CTA b/l, no rales abd - soft, ND, BS+; NT ext - no edema, pulses 2+ b/l skin - left iliac crest region - dressing in place, no hematoma Results & Data Results & Data Vital Signs (Past 12 Hours) Vital Signs Temp Pulse Pulse Pulse Resp BP BP 04/29/25 19:57 36.7 C 18 04/29/25 16:15 36.4 C L 20 04/29/25 15:34 86 04/29/25 14:08 36.5 C 81 16 175/106 H 04/29/25 13:37 36.7 C 85 04/29/25 13:00 85 157/94 H 04/29/25 12:30 88 173/92 H 04/29/25 12:00 89 169/85 H 04/29/25 11:30 70 158/79 H 04/29/25 11:00 92 H 163/88 H 04/29/25 10:30 89 166/89 H 04/29/25 10:00 84 156/89 H 04/29/25 09:34 36.7 C 87 173/96 H 04/29/25 09:28 36.7 C 87 BP Pulse Ox O2 Del Method 04/29/25 19:57 94 Room Air 04/29/25 16:15 95 Room Air 04/29/25 15:34 04/29/25 14:08 98 Room Air 04/29/25 13:37 172/96 H 04/29/25 13:00 04/29/25 12:30 04/29/25 12:00 04/29/25 11:30 04/29/25 11:00 04/29/25 10:30 04/29/25 10:00 04/29/25 09:34 04/29/25 09:28 Laboratory Results Laboratory Results - last 24 hr 04/29/25 04/29/25 05:30 09:15 WBC 4.25 L RBC 2.48 L Hgb 7.3 L Hct 21.3 L MCV 85.9 MCH 29.4 MCHC 34.3 RDW Std Deviation 41.1 RDW Coeff of Juliana 13.2 Plt Count 92 L MPV 11.7 Immature Gran % (Auto) 0.2 Neut % (Auto) 53.5 Lymph % (Auto) 28.4 [facility] % (Auto) 7.8 Eos % (Auto) 9.2 Baso % (Auto) 0.9 Neut # (Auto) 2.34 Lymph # (Auto) 1.24 [facility] # (Auto) 0.34 Eos # (Auto) 0.40 Baso # (Auto) 0.04 Immature Gran # (Auto) 0.01 Polychromasia 1+ Tear Drop Cells 1+ Sodium 130 L Potassium 5.9 H Chloride 96 L Carbon Dioxide 22 Anion Gap 12 H BUN 97 H Creatinine 13.77 H* Est Cr Clr Drug Dosing 9.7 eGFR 4.75 BUN/Creatinine Ratio 7.0 L Glucose 88 Calcium 9.3 Phosphorus 7.3 H Albumin 3.8 Flow Cytometry Comment Pending Diagnostic Findings Bone Marrow Biopsy w/ CT 04/28/25 15:06 CT guided bone marrow biopsy INDICATION: Pancytopenia PROCEDURE: Procedure and risks were explained. Informed consent was obtained. A final timeout was completed. The patient was placed prone on the CT exam table. The left gluteal region was prepped and draped in sterile fashion. 1% lidocaine was utilized for skin anesthesia. The patient received 100 mcg fentanyl IV. Utilizing CT guidance, an 11-gauge bone biopsy needle was advanced into the left iliac bone. Multiple aspirates and 1 bone core was obtained and given to the lab. The needle was removed and Band-Aid applied. The patient tolerated the procedure well. Vital signs will be monitored postprocedure. IMPRESSION: Bone marrow biopsy as above. Performed, dictated, and signed by Adalberto Chang PA-C; to be co-signed by Dr. Magdy Jones. Electronically signed by: Magdy Jones M.D. 04/29/2025 3:25 PM PG Care Time/CCT Total # of Minutes Spent Total Time Spent with Patient: Total time spent is greater than 50% in coordination of care (as documented) at patient's floor/unit and/or counseling patient: Prolonged Care Time Prolonged Care Time: Yes Total Prolonged Care Time: 90 Coding Level of Care Code 22003 SUB INP/OBS CARE 3/50MIN (25 - SIGNIFICANT, SEPARATELY IDENTIFIABLE ) Diagnoses Seizure R56.9 PRES (posterior reversible encephalopathy syndrome) I67.83 ESRD on hemodialysis N18.6; Z99.2 Acute intractable headache, unspecified headache type R51.9 Headache chronicity pattern: acute headache Headache type: unspecified Severe uncontrolled hypertension I10 Constipation K59.00 Thrombocytopenia D69.6 Hyperkalemia E87.5 FSGS (focal segmental glomerulosclerosis) N05.1 Hx of deep venous thrombosis Z86.718 Serologic abnormality R89.4 LUQ pain R10.12 Pancytopenia D61.818 Additional Codes Prolonged Care Time - Prolonged Care Time: Yes ([id number]) (4) Intractable headache Headache chronicity pattern: acute headache Headache type: unspecified Qualified Code(s): R51.9 - Headache, unspecified
[2025-04-29] MEDS: LEVALBUTEROL 1.25 MG/3 ML NEB NEB STA (20:21)
[2025-04-30 06:06] LABS: Hematocrit (blood only) 19.4 % (42.0-52.0); Hemoglobin 6.9 g/dl (14.0-18.0); Mean Corpuscular Hemoglobin 30.5 pg (25.0-34.0); Mean Corpuscular Volume 85.8 fL (80.0-100.0); Platelet Count 74 K/uL (130-400); RDW Standard Deviation 40.8 fL (36.4-46.3); Red Blood Count 2.26 M/uL (4.70-6.10); White Blood Count 3.92 K/ul (4.8-10.8)
[2025-04-30 06:28] LABS: Anion Gap 10.0 (3-11); Blood Urea Nitrogen 58.0 mg/dl (6-23); Calcium 9.0 mg/dl (8.6-10.3); Carbon Dioxide 28.0 mmol/L (21-32); Chloride 97.0 mmol/L (98-107); Creatinine Clr Calc Pharmacy 13.8 ml/min; Glucose 100.0 mg/dl (70-99(Fasting)); Iron 115.0 mcg/dl (35-175); Potassium 4.8 mmol/L (3.5-5.1); Sodium 135.0 mmol/L (136-145); Total Iron Binding Cap Calc 272.0 mcg/dl (250-450); Transferrin 194.0 mg/dl (200-360); Transferrin (FE) Percent Satur 42.0 % (20-50)
[2025-04-30 06:46] LABS: Ferritin 262.5 ng/ml (8-388)
--- NOTE | 2025-04-30 10:10 | Nephrology Progress Note ---
Date of Service April 30, 2025 Assessment & Plan (1) End stage renal disease: (2) Hypertensive emergency: (3) Headache: (4) Hyperkalemia: (5) Nausea & vomiting: (6) Seizure: Plan 20-year-old male with end-stage kidney disease and hypertensive urgency, secondary to primary FSGS, started on dialysis. Admitted to the hospital with Seizure, headache and hypertensive emergency. w/u has been unremarkable. Blood pressure still elevated, low-dose clonidine was restarted yesterday. Electrolyte acceptable. Hemoglobin dropped to 6.9. Noted to have adequate iron store. --We discussed potential adverse effects of Epogen including further elevation of blood pressure however considering future perspective for kidney transplant, would like to avoid blood transfusion as much as possible. He understands risk of worsening blood pressure but agreeable to have Epogen. Will give 20,000 subcu today. Repeat hemoglobin this afternoon if any significant drop in hemoglobin okay to give blood transfusion but otherwise continue to monitor. -- continue torsemide 40 mg twice a day for now, if UO remains low, may consider stopping in future, low sodium diet -- ok to continue on Remeron 15 mg qhs for sleep -- continue labetalol 400 mg twice a day -- will keep off of Spironolactone considering hyperkalemia despite getting Lokelma daily and having regular dialysis. -- Continue on amlodipine, clonidine -- Minoxidil 10 mg daily --OK to use NSAID prn for headache --left arm nephrology precaution --on going discussion for possible transfer, now plan is to try [facility]. Admission and Anticipated Discharge Date Admission Date: April 20, 2025 Dimas Payton was seen and evaluated this morning. Had dialysis yesterday and had 4.5 L UF but blood pressure continues to be elevated. Hemoglobin dropped to 6.9, adequate iron store. He has not been getting YESSY because of significantly elevated blood pressure. Yesterday he was accepted to [facility] for transfer but the bed is no longer available. He reports feeling Pain in his face and feels like he can have more UF. Electrolytes has been acceptable. Review of Systems Review of Systems: Detail ROS was done and pertinents as mentioned above Physical Exam Constitutional: WD/WN, vitals as above + ill appearing Eyes: + anicteric sclerae Respiratory: no respiratory distress Auscultation: lungs clear to auscultation bilaterally Cardiovascular: Rate/Rhythm: regular rate and regular rhythm Heart Sounds: normal S1 and normal S2 Extremities: + vascular access device (Rt IJ TDC); no edema Musculoskeletal: Extremities: extremities normal to inspection Skin: no rashes, warm and dry Neurologic: no focal motor deficits Psychiatric: Orientation: alert and oriented x 3 Affect: euthymic affect Results & Data Vital Signs (Past 12 Hours) Vital Signs Temp Pulse Resp Pulse Ox O2 Del Method 04/30/25 06:59 36.7 C 19 98 Room Air 04/30/25 02:52 36.6 C 18 96 Room Air 04/30/25 00:15 86 04/29/25 22:39 36.8 C 18 95 Room Air PG Care Time/CCT Total # of Minutes Spent Total Time Spent with Patient: Total time spent is greater than 50% in coordination of care (as documented) at patient's floor/unit and/or counseling patient: Coding Level of Care Code 41774 SUB INP/OBS CARE 3/50MIN Diagnoses End stage renal disease N18.6 Hypertensive emergency I16.1 Other headache syndrome G44.89 Headache type: other headache syndrome Hyperkalemia E87.5 Nausea & vomiting R11.2 Seizure R56.9 (3) Headache Headache type: other headache syndrome Qualified Code(s): G44.89 - Other headache syndrome
[2025-04-30] MEDS: SEVELAMER CARBONATE 800 MG TAB PO SCH (11:30)
[2025-04-30] MEDS: EPOETIN ALFA 20,000 UNITS/ML VIAL SQ STA (11:32)
--- NOTE | 2025-04-30 11:41 | Hospitalist Progress Note ---
Date of Service April 30, 2025 Assessment & Plan (1) Seizure: (2) PRES (posterior reversible encephalopathy syndrome): (3) ESRD on hemodialysis: (4) Intractable headache: (5) Severe uncontrolled hypertension: (6) Pancytopenia: Plan 20yo male - ESRD on HD due to FSGN, severe uncontrolled hypertension, PRES, presented with seizures #PRES with seizures - -MRI brain x 2 (early March, then this admission) c/w PRES -Triggers of PRES - HTN; ESRD/CKD -no evidence of any autoimmune disease to date -BP control is paramount but has proven exceptionally difficult despite considerable efforts by nephrology; their assistance is very much appreciated -change keppra to po - continue at least 3 mo per neurology consult -of note - previous NHUNG, ANCA, etc all negative; CRP low at 1.1 -EEG negative for seizure focus -amyloid light chains negative -PRES is the cause of his visual complaints, ataxia, vertigo, severe headaches, etc. -spoke with neurology at [facility] as well as [facility] last week -[place] neurology advised systolic BP goal to be <140 -they also recommended consideration of gabapentin or lyrica or similar for headache prophylaxis; gabapentin increased to 200 mg bid #Severe uncontrolled hypertension - -ongoing despite numerous BP meds and multiple med trials -secondary causes of HTN highly suspected but work-up negative -CTA renal arteries negative for FLORA -renin/mynor levels returned; no hyper-mynor -catecholamines negative about 2 weeks ago; plasma metanephrines this admission returned negative -TSH not c/w hyperthyroidism -he does not have obvious AIMEE, and overnight oximetry study checked and was very normal -anti-hypertensive med regimen: -minoxidil 10mg daily -Labetalol 400mg tid -Amlodipine 10mg po daily -Torsemide 40mg po BID -clonidine 0.1 mg po tid -aldactone 50mg daily - held for hyperkalemia -cont labetalol 10mg IV q 4 hours as needed for SBP > 170 - needing this about 1x/day, sometimes 2x's -BPs have remained resistant to all BP meds and treatments, as well as dialysis for volume -discussed with Dr. Guevara # epistaxis vs hemoptysis - consulted pulmonary, sinus CT negative, has not recurred #Intractable headache - -2nd to PRES/uncontrolled HTN -ongoing despite IV pain meds, dexamethasone, attempts to control BP, reglan, IV depakote, ativan, etc. Nurtec contraindicated in ESRD patients due to lack of proper study in this patient population -imaging w/o ICH -MRV head negative for dural thrombosis -no evidence of meningitis on examination Headache has improved compared to last week At this point has hyperalgesia (for example needing IV hydromorphone for pain from bone marrow biopsy site) -increase gabapentin -continue APAP but this will need to be stopped eventually because of risk of rebound headaches -discussed with Kvng, need to transition off IV hydromorphone which is ultimately ineffective for headache and seems to be causing hyperalgesia - decrease to 0.5 mg tomorrow then transition to po and taper off #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 Note that platelets fell well after admission and also need to consider drug-induced thrombocytopenia -in light of severe LVH/cardiomegaly (which could be 2nd to severely uncontrolled HTN) - infiltrative disease such as amyloid -kappa/lambda light chains returned negative however -cardiac MRI recommended as outpatient -recent ferritin and transferrin saturation not elevated, thus hemochromatosis unlikely -sarcoidosis unlikely - OC level normal -EBV panel with possible mono (later stage) but EBV PCR NEGATIVE -CMV titers negative -parvovirus titers negative -anaplasmosis/babesia DNA both negative -respiratory BioFire negative -NHUNG negative -B12/folate/TSH wnl -peripheral smear by pathology -- no signs of hemolysis, TTP, or other abnormalities -Dr Hawk from heme/onc provided consultation - bone marrow biopsy 04/29 pending #Anemia - anemia of CKD and there may be another process at play as discussed above, phlebotomy is a factor at this point -Hg 6.9 today -discussed with Dr. Guevara and with Kvng. There is risk that YESSY worsens his hypertension, however, blood transfusion is a last resort since can contribute to antibody formation which would impact future renal txp -holding off on transfusion -YESSY today per Dr. 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 #Anxiety/Depression - -Continue Sertraline 25mg po daily -Continue mirtazapine 15 mg HS -patient requested psych eval -- behavioral health liasion and psychiatry consultations appreciated -ativan 0.5mg BID prn anxiety -appreciate psych assistance #constipation - -mod-severe, but improved last 2-3 days -opiate related -cont miralax #hyperkalemia - had resolved, now recurred with use of aldactone - -stopped aldacotne -cont once daily [facility]el[facility] am #DVT ppx - -heparin 5000 BID unfortunately patient was declined for transfer by [facility] and [facility] on 04/24/25, [facility] [place] 04/28. Accepted by [facility] 04/29 but he did not want to go to [place] at that time, was thinking about it, today I was notified that transfer was cancelled because of no beds at [facility]. Admission and Anticipated Discharge Date Admission Date: April 20, 2025 Subjective Still having headaches but none right now and generally have improved compared to 7-10 days ago Gets lightheaded after standing for 5-10 min, orthostatics were normal reviewed this AM No bleeding Has pain left buttock/sacrum site of biopsy yesterday Physical Exam 2 Physical Exam: Last 24h vitals reviewed GEN: awake, not wearing eye mast HEENT: pupils equal, sclerae anicteric, moist MM, some mild facial edema RESP: normal WOB CV: tunneled HD line R upper chest ABD: ND : no conley bone marrow biopsy site L sacrum - dressed no aparrent swelling or ecchymosis SKIN: warm and dry, no generalized rashes NEURO: AOx person, place, and situation. Face symmetric, speech normal, moves 4 ext spontaneously and equally Results & Data Results & Data Vital Signs (Past 12 Hours) Vital Signs Temp Pulse Resp Pulse Ox O2 Del Method 04/30/25 10:27 36.8 C 97 Room Air 04/30/25 06:59 36.7 C 19 98 Room Air 04/30/25 02:52 36.6 C 18 96 Room Air 04/30/25 00:15 86 Laboratory Results 04/30/25 05:18 04/30/25 05:18 PG Care Time/CCT Total # of Minutes Spent Total Time Spent with Patient: Total time spent is greater than 50% in coordination of care (as documented) at patient's floor/unit and/or counseling patient: Coding Level of Care Code 83916 SUB INP/OBS CARE 3/50MIN Diagnoses Seizure R56.9 PRES (posterior reversible encephalopathy syndrome) I67.83 ESRD on hemodialysis N18.6; Z99.2 Acute intractable headache, unspecified headache type R51.9 Headache type: unspecified Headache chronicity pattern: acute headache Severe uncontrolled hypertension I10 Pancytopenia D61.818 (4) Intractable headache Headache type: unspecified Headache chronicity pattern: acute headache Qualified Code(s): R51.9 - Headache, unspecified
[2025-04-30] MEDS: levETIRAcetam 500 MG TAB PO SCH (12:41)
[2025-04-30] MEDS ORDERED: PROCHLORPERAZINE 5 MG in SYRINGE 4 ML IV PRN (12:50)
[2025-04-30 14:13] LABS: Hematocrit (blood only) 21.1 % (42.0-52.0); Hemoglobin 7.4 g/dl (14.0-18.0)
[2025-04-30] MEDS: GABAPENTIN 100 MG CAP PO SCH (19:59)
--- NOTE | 2025-05-01 09:24 | Hospitalist Progress Note ---
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, severe uncontrolled hypertension, PRES, presented with seizures #PRES with seizures - -MRI brain x 2 (early March, then this admission) c/w PRES -Triggers of PRES - HTN; ESRD/CKD -no evidence of any autoimmune disease to date -BP control is paramount but has proven exceptionally difficult despite considerable efforts by nephrology; their assistance is very much appreciated -cont keppra 1000 mg po bid - continue at least 3 mo per neurology consult -of note - previous NHUNG, ANCA, etc all negative; CRP low at 1.1 -EEG negative for seizure focus -amyloid light chains negative -PRES is the cause of his visual complaints, ataxia, vertigo, severe headaches, etc. -spoke with neurology at [facility] as well as [facility] last week -[place] neurology advised systolic BP goal to be <140 -they also recommended consideration of gabapentin or lyrica or similar for headache prophylaxis; gabapentin increased to 200 mg bid on 04/30 #Severe uncontrolled hypertension - -ongoing despite numerous BP meds and multiple med trials -secondary causes of HTN highly suspected but work-up negative -CTA renal arteries negative for FLORA -renin/mynor levels returned; no hyper-mynor -catecholamines negative about 2 weeks ago; plasma metanephrines this admission returned negative -TSH not c/w hyperthyroidism -he does not have obvious AIMEE, and overnight oximetry study checked and was very normal -anti-hypertensive med regimen: -minoxidil 10mg daily -Labetalol 400mg tid -Amlodipine 10mg po daily -Torsemide 40mg po BID -clonidine 0.1 mg po tid -aldactone 50mg daily - held for hyperkalemia -BP control overall much improved from a few weeks ago. bps 155-170/71-86 past 24h -cont labetalol 10mg IV q 4 hours as needed for SBP > 170 - no doses in at least 72h -he is 10 kg up for the stay - he doesn't think the torsemide is very effective for his UOP - discuss with tank systems maintainer # epistaxis vs hemoptysis - consulted pulmonary, sinus CT negative, has not recurred #Intractable headache - -2nd to PRES/uncontrolled HTN -imaging w/o ICH -MRV head negative for dural thrombosis -no evidence of meningitis on examination Headache has improved compared to last week At this point has hyperalgesia (for example needing IV hydromorphone for pain from bone marrow biopsy site) -increased gabapentin -continue APAP but this will need to be stopped eventually because of risk of rebound headaches -added po oxycodone 5-10 mg and - decreased hydromorphone to 0.5 mg IV prn #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 Note that platelets fell well after admission and also need to consider drug-induced thrombocytopenia -in light of severe LVH/cardiomegaly (which could be 2nd to severely uncontrolled HTN) - infiltrative disease such as amyloid -kappa/lambda light chains returned negative however -cardiac MRI recommended as outpatient -recent ferritin and transferrin saturation not elevated, thus hemochromatosis unlikely -sarcoidosis unlikely - OC level normal -EBV panel with possible mono (later stage) but EBV PCR NEGATIVE -CMV titers negative -parvovirus titers negative -anaplasmosis/babesia DNA both negative -respiratory BioFire negative -NHUNG negative -B12/folate/TSH wnl -peripheral smear by pathology -- no signs of hemolysis, TTP, or other abnormalities -Dr Hawk from heme/onc provided consultation - bone marrow biopsy 04/29 pending #Anemia - anemia of CKD and there may be another process at play as discussed above, phlebotomy is a factor at this point -Hg was 7.4 on repeat check yesterday and stable -YESSY given 04/30, some risk of worsened HTN -blood transfusion is a last resort since can contribute to antibody formation which would impact future renal txp -avoid excessive blood draws -obtained transfusion consent, however, should not transfuse except in emergency without further discussion with Kvng and tank systems maintainer as above #Anxiety/Depression - -Continue Sertraline 25mg po daily -Continue mirtazapine 15 mg HS -patient requested psych eval -- behavioral health liasion and psychiatry consultations appreciated -ativan 0.5mg BID prn anxiety #constipation - -mod-severe, but improved last 2-3 days -opiate related -cont miralax #hyperkalemia - had resolved, recurred with spironolactone -stopped spironolactone -cont once daily Lokelma -improved #DVT ppx - -heparin 5000 BID unfortunately patient was declined for transfer by [facility] and [facility] on 04/24/25, [facility] on 04/28. Accepted by [facility] 04/29 but he did not want to go to [place] at that time, was thinking about it, today I was notified that transfer was cancelled because of no beds at [facility]. At this point he's close to being stable enough for discharge - main barrier is pain control and transition to po meds. Discussed with him 05/01. Bone marrow biopsy hopefully will result within 24h, however, can be followed up as outpatient. Admission and Anticipated Discharge Date Admission Date: April 20, 2025 Subjective No shortness of breath Pain at BM Bx site unchanged Headaches slowly improving Feels edematous - face / arms / legs / abdomen Physical Exam Physical Exam: Last 24h vitals reviewed GEN: awake, alert sitting up in bed HEENT: pupils equal, sclerae anicteric, moist MM, some mild facial edema RESP: normal WOB, CTAB CV: tunneled HD line R upper chest ABD: appears more full : no conley SKIN: warm and dry, no generalized rashes EXT: some generalized nonpitting edema NEURO: AOx person, place, and situation. Face symmetric, speech normal, moves 4 ext spontaneously and equally Results & Data Results & Data Vital Signs (Past 12 Hours) Vital Signs Temp Pulse Pulse Resp BP Pulse Ox O2 Del Method 05/01/25 07:42 36.6 C 87 17 156/85 H 94 Room Air 05/01/25 05:25 155/83 H 08/07/25 03:02 36.5 C 88 18 170/86 H 96 Room Air 05/01/25 00:00 87 04/30/25 23:12 36.3 C L 90 18 157/83 H 93 Room Air PG Care Time/CCT Total # of Minutes Spent Total Time Spent with Patient: Total time spent is greater than 50% in coordination of care (as documented) at patient's floor/unit and/or counseling patient: Coding Level of Care Code 28546 SUB INP/OBS CARE 3/50MIN Diagnoses Seizure R56.9 PRES (posterior reversible encephalopathy syndrome) I67.83 ESRD on hemodialysis N18.6; Z99.2 Acute intractable headache, unspecified headache type R51.9 Headache type: unspecified Headache chronicity pattern: acute headache Severe uncontrolled hypertension I10 Pancytopenia D61.818 (4) Intractable headache Headache type: unspecified Headache chronicity pattern: acute headache Qualified Code(s): R51.9 - Headache, unspecified
--- NOTE | 2025-05-01 10:07 | Nephrology Progress Note ---
Date of Service May 01, 2025 Assessment & Plan (1) End stage renal disease: (2) Hypertensive emergency: (3) Headache: (4) Hyperkalemia: (5) Nausea & vomiting: (6) Seizure: Plan 20-year-old male with end-stage kidney disease and hypertensive urgency, secondary to primary FSGS, started on dialysis. Admitted to the hospital with Seizure, headache and hypertensive emergency. w/u has been unremarkable. Blood pressure still elevated however there is definite trending improvement over last 24 hours. Electrolyte acceptable. Hemoglobin 7.4. Noted to have adequate iron store. --give another dose of Epogen 20,000 today. -- continue torsemide 40 mg twice a day for now, if UO remains low, may consider stopping in future, low sodium diet -- ok to continue on Remeron 15 mg qhs for sleep -- continue labetalol 400 mg twice a day -- will keep off of Spironolactone considering hyperkalemia despite getting Lokelma daily and having regular dialysis. -- Continue on amlodipine, -- Increase clonidine to 0.2 mg tid -- Minoxidil 10 mg daily --OK to use NSAID prn for headache --left arm nephrology precaution --on going discussion for possible transfer, now plan is to try [place], . However, if blood pressure continues to improve, may be able to go home soon. Admission and Anticipated Discharge Date Admission Date: April 20, 2025 Dimas Payton was seen and evaluated this morning during hemodialysis. UF was set at 4.8 L and has been tolerating okay. Blood pressure noted to be staying slightly better since yesterday afternoon. Has not been having much headache lately. Hemoglobin improved to 7.4 on lab yesterday, received Epogen 20,000 units yesterday. Review of Systems Review of Systems: Detail ROS was done and pertinents as mentioned above Physical Exam Constitutional: WD/WN, vitals as above + ill appearing Eyes: + anicteric sclerae Respiratory: no respiratory distress Auscultation: lungs clear to auscultation bilaterally Cardiovascular: Rate/Rhythm: regular rate and regular rhythm Heart Sounds: normal S1 and normal S2 Extremities: + vascular access device (Rt IJ TDC); no edema Musculoskeletal: Extremities: extremities normal to inspection Skin: no rashes, warm and dry Neurologic: no focal motor deficits Psychiatric: Orientation: alert and oriented x 3 Affect: euthymic affect Results & Data Vital Signs (Past 12 Hours) Vital Signs Temp Pulse Pulse Pulse Resp BP BP 05/01/25 09:30 81 162/82 H 05/01/25 09:09 83 173/97 H 05/01/25 09:03 36.4 C L 82 05/01/25 07:42 36.6 C 87 17 156/85 H 05/01/25 05:25 155/83 H 05/01/25 03:02 36.5 C 88 18 170/86 H 05/01/25 00:00 87 04/30/25 23:12 36.3 C L 90 18 157/83 H Pulse Ox O2 Del Method 05/01/25 09:30 05/01/25 09:09 05/01/25 09:03 05/01/25 07:42 94 Room Air 05/01/25 05:25 05/01/25 03:02 96 Room Air 05/01/25 00:00 04/30/25 23:12 93 Room Air PG Care Time/CCT Total # of Minutes Spent Total Time Spent with Patient: Total time spent is greater than 50% in coordination of care (as documented) at patient's floor/unit and/or counseling patient: Coding Level of Care Code 22483 SUB INP/OBS CARE 2/35MIN Diagnoses End stage renal disease N18.6 Hypertensive emergency I16.1 Other headache syndrome G44.89 Headache type: other headache syndrome Hyperkalemia E87.5 Nausea & vomiting R11.2 Seizure R56.9 (3) Headache Headache type: other headache syndrome Qualified Code(s): G44.89 - Other headache syndrome
[2025-05-01] MEDS: NEPHROCAPS PO SCH (10:13)
[2025-05-01] MEDS: HYDROmorphone INJ 1 MG/ML SYRINGE IV PRN (11:36)
--- NOTE | 2025-05-01 11:52 | Electrocardiogram Report ---
Test Reason : Blood Pressure : */* mmHG Vent. Rate : 84 BPM Atrial Rate : 84 BPM P-R Int : 166 ms QRS Dur : 94 ms QT Int : 370 ms P-R-T Axes : 64 64 54 degrees QTcB Int : 437 ms Normal sinus rhythm Normal ECG When compared with ECG of 20-Apr-2025 19:02, No significant change was found Confirmed by Raj Lehman [id number]) on 05/01/2025 11:51:42 AM Referred By: REFERRED SELF Confirmed By: Raj Lehman
[2025-05-01] MEDS: EPOETIN ALFA 20,000 UNITS/ML VIAL IV STA (12:08)
--- NOTE | 2025-05-02 10:08 | Nephrology Progress Note ---
Date of Service May 02, 2025 Assessment & Plan (1) End stage renal disease: Plan: * Next HD tomorrow. BP and volume status are acceptable. Electrolytes controlled. * Outpatient HD Rx: TTS 3.75 Fx CorAL80 BFR 400/QD800 2K 2Ca 1Mg Na140 HCO3 40. Remains above EDW. (2) Hypertensive emergency: Plan: * Continues to struggle with resistant hypertension. * Improvement noted. * Increase minoxidil to 10 mg twice daily. * Continue torsemide as Rx * Remains on amlodipine 10 mg daily, clonidine 0.2 TID, labetalol 400 mg TID (HR ~80-90 bpm). * Ongoing discussion for possible renal denervation. Accelerated hypertension complicated by PRES and significant endothelial inflammation. Placement in the ICU for arterial line placement and monitoring of BP may be helpful to help reconcile BP while titrating medications may be helpful. (3) Anemia: Plan: * Hematology following. Bone marrow pending. Noted cytopenias. No obvious intravascular hemolysis - no schistocytes on peripheral smear. DDx includes various forms of endothelial inflammation, including HLH. Adequate clearance with HD to help exclude uremia. Admission and Anticipated Discharge Date Admission Date: April 20, 2025 Subjective No acute events overnight. Kvng tolerated HD well yesterday. Improvement in blood pressure noted. Unfortunately, Fito continues to not feel well. He describes constant fogginess and pressure in his head. He remains very tired. Activity tolerance is decreased. Appetite is fair. He denies significant fluid retention but notes that he continues to have some facial fullness and feels some abdominal distention. Review of Systems Review of Systems: All systems reviewed & are unremarkable except as noted in HPI & below Physical Exam Constitutional: well developed; no acute distress Eyes: + anicteric sclerae ENMT: external ear and nose normal, oropharynx normal Neck: normal visual inspection RIJ TDC Respiratory: normal respiratory effort; no respiratory distress Cardiovascular: Rate/Rhythm: regular rate Extremities: no edema Musculoskeletal: Extremities: no cyanosis and no clubbing Skin: no lesions and no jaundice Neurologic: Motor/Sensory: no tremor and no asterixis Psychiatric: Orientation: alert and oriented x 3 Results & Data Vital Signs (Past 12 Hours) Vital Signs Temp Pulse Pulse Resp BP Pulse Ox O2 Del Method 05/02/25 07:47 36.5 C 86 20 160/96 H 96 Room Air 05/02/25 03:23 36.8 C 90 18 156/90 H 96 Room Air 05/01/25 23:24 36.5 C 90 16 160/88 H 94 Room Air 05/01/25 23:22 94 H PG Care Time/CCT Total # of Minutes Spent Total Time Spent with Patient: Total time spent is greater than 50% in coordination of care (as documented) at patient's floor/unit and/or counseling patient: Coding Level of Care Code 08124 SUB INP/OBS CARE 3/50MIN Diagnoses End stage renal disease N18.6 Hypertensive emergency I16.1 Anemia D64.9
--- NOTE | 2025-05-02 18:03 | Hospitalist Progress Note ---
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 Currently fair control on five agents, but has never been at goal -cont keppra 1000 mg po bid - continue at least 3 mo per neurology consult -of note - previous NHUNG, ANCA, etc all negative; CRP low at 1.1 -EEG negative for seizure focus -amyloid light chains negative -PRES is the cause of his visual complaints, ataxia, vertigo, severe headaches, etc. This has improved. gabapentin 200 mg bid may be helping with headache ppx -My colleague spoke with neurology at [facility] as well as [facility] last week -[place] neurology advised systolic BP goal to be <140 #Severe uncontrolled hypertension - -ongoing despite numerous BP meds and multiple med trials -secondary causes of HTN highly suspected but work-up negative -CTA renal arteries negative for FLORA -renin/mynor levels returned; no hyper-mynor -catecholamines negative about 2 weeks ago; plasma metanephrines this admission returned negative -TSH not c/w hyperthyroidism -he does not have obvious AIMEE, and overnight oximetry study checked and was very normal -anti-hypertensive med regimen: -minoxidil 10mg bid - increased today -Labetalol 400mg tid -Amlodipine 10mg po daily -Torsemide 40mg po BID -clonidine 0.2 mg po tid - increased 05/01 -aldactone 50mg daily - held for hyperkalemia -cont labetalol 10mg IV q 4 hours as needed for SBP > 170 - no doses in at least 72h -he is 10 kg up for the stay - he doesn't think the torsemide is very effective for his UOP HD planned for tomorrow - long run to optimize volume status Discussed extensively with band saw operator cake cutting Dr. Woods today. To date, transfer requests to tertiary care at [facility] and [facility] have been declined. Procedural treatment like renal denervation may be necessary. Discussed BP monitoring with arterial line following HD as an option to definitively evaluate the hypertension. Would require ICU stay. 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 Note that platelets fell well after admission and also need to consider drug-induced thrombocytopenia -in light of severe LVH/cardiomegaly (which could be 2nd to severely uncontrolled HTN) - infiltrative disease such as amyloid -kappa/lambda light chains returned negative however -cardiac MRI recommended as outpatient -recent ferritin and transferrin saturation not elevated, thus hemochromatosis unlikely -sarcoidosis unlikely - OC level normal -EBV panel with possible mono (later stage) but EBV PCR NEGATIVE -CMV titers negative -parvovirus titers negative -anaplasmosis/babesia DNA both negative -respiratory BioFire negative -NHUNG negative -B12/folate/TSH wnl -peripheral smear by pathology -- no signs of hemolysis, TTP, or other abnormalities -Dr Hawk from heme/onc provided consultation - bone marrow biopsy 04/29 still pending Monday afternoon. Still has pain from BMBx site - coming off IV hydromorphone today and occasional one-time doses ok. #Anemia - anemia of CKD and there may be another process at play as discussed above, phlebotomy is a factor at this point -Hg was 7.4 on repeat check yesterday and stable -YESSY given 04/30, some risk of worsened HTN -blood transfusion is a last resort since can contribute to antibody formation which would impact future renal txp -avoid excessive blood draws -obtained transfusion consent, however, should not transfuse except in emergency without further discussion with Kvng and band saw operator cake cutting as above -AM CBC #Anxiety/Depression - -psychiatrist consulted this admission -Continue Sertraline 25mg po daily -Continue mirtazapine 15 mg HS -ativan 0.5mg BID prn anxiety #constipation - -opiate related -cont miralax #hyperkalemia - had resolved, recurred with spironolactone -stopped spironolactone -cont once daily Lokelma -improved #DVT ppx - -heparin 5000 BID Today discussed POC with band saw operator cake cutting and updated his mother in the room. Admission and Anticipated Discharge Date Admission Date: April 20, 2025 Subjective Headache continues to slowly improve. Poor appetite. Edematous. Tailbone pain from biopsy continues significant but improved. Effortfully used much less opioid yesterday. BP last few days better control on 5 agents, but running higher again today Physical Exam 2 Physical Exam: Last 24h vitals reviewed GEN: awake, alert sitting up in bed HEENT: pupils equal, sclerae anicteric, moist MM, some facial edema persists RESP: normal WOB CV: tunneled HD line R upper chest ABD: nd : no conley SKIN: warm and dry, no generalized rashes EXT: some generalized nonpitting edema NEURO: AOx person, place, and situation. Face symmetric, speech normal, moves 4 ext spontaneously and equally Results & Data Results & Data Vital Signs (Past 12 Hours) Vital Signs Temp Pulse Pulse Resp BP Pulse Ox O2 Del Method 05/02/25 15:45 36.8 C 91 H 18 175/93 H 95 Room Air 05/02/25 13:04 107 H 05/02/25 11:42 36.4 C L 86 20 165/89 H 95 Room Air 05/02/25 07:47 36.5 C 86 20 160/96 H 96 Room Air Laboratory Results 04/30/25 13:53 04/30/25 05:18 PG Care Time/CCT Total # of Minutes Spent Total Time Spent with Patient: Total time spent is greater than 50% in coordination of care (as documented) at patient's floor/unit and/or counseling patient: Coding Level of Care Code 11731 SUB INP/OBS CARE 3/50MIN Diagnoses Seizure R56.9 PRES (posterior reversible encephalopathy syndrome) I67.83 ESRD on hemodialysis N18.6; Z99.2 Acute intractable headache, unspecified headache type R51.9 Headache type: unspecified Headache chronicity pattern: acute headache Severe uncontrolled hypertension I10 Pancytopenia D61.818 (4) Intractable headache Headache type: unspecified Headache chronicity pattern: acute headache Qualified Code(s): R51.9 - Headache, unspecified
[2025-05-03 08:03] LABS: Anion Gap 11.0 (3-11); Blood Urea Nitrogen 71.0 mg/dl (6-23); Calcium 9.7 mg/dl (8.6-10.3); Carbon Dioxide 28.0 mmol/L (21-32); Chloride 92.0 mmol/L (98-107); Creatinine Clr Calc Pharmacy 11.2 ml/min; Glucose 88.0 mg/dl (70-99(Fasting)); Potassium 5.6 mmol/L (3.5-5.1); Sodium 131.0 mmol/L (136-145)
[2025-05-03 08:10] LABS: Hematocrit (blood only) 20.2 % (42.0-52.0); Hemoglobin 7.3 g/dl (14.0-18.0); Mean Corpuscular Hemoglobin 30.3 pg (25.0-34.0); Mean Corpuscular Volume 83.8 fL (80.0-100.0); Platelet Count 121 K/uL (130-400); RDW Standard Deviation 39.7 fL (36.4-46.3); Red Blood Count 2.41 M/uL (4.70-6.10); White Blood Count 4.62 K/ul (4.8-10.8)
--- NOTE | 2025-05-03 10:23 | Nephrology Progress Note ---
Date of Service May 03, 2025 Assessment & Plan (1) End stage renal disease: Plan: Orders for HD entered into the EHR and reviewed with sandwich wrapper. Kvng was seen and evaluated during treatment. He is tolerating HD well. UF goal 4-5 L, as tolerated. May benefit from additional treatment tomorrow for additional UF (I will evaluate in the AM). Maintain daily fluid restriction `1.2 L. Low sodium, low potassium diet. Outpatient HD Rx: TTS 3.75 Fx [id number] BFR 400/QD800 2K 2Ca 1Mg Na140 HCO3 40. Medications appropriate for IHD. (2) Hypertensive emergency: Plan: Improvement noted. Unfortunately, Fito does not feel well. He describes orthostatic lightheadedness without orthostatic changes in vitals. He describes fogginess and lightheadedness. Symptoms likely related to medications, changes in medications, and anemia. Yesterday increased minoxidil to 10 mg twice daily. Continue torsemide to encourage urine output. Remains on amlodipine 10 mg daily, clonidine 0.2 TID, labetalol 400 mg TID (HR ~80-90 bpm). Ongoing discussion for possible renal denervation. Accelerated hypertension complicated by PRES and significant endothelial inflammation. (3) Anemia: Plan: Hematology following. Bone marrow pending. Pancytopenias. Hepatosplenomegaly. No obvious intravascular hemolysis - no schistocytes on peripheral smear. DDx includes various forms of endothelial inflammation, including HLH. Adequate clearance with HD to help exclude uremia. Admission and Anticipated Discharge Date Admission Date: April 20, 2025 Subjective No acute events overnight. Kvng reports some dyspnea overnight. Symptoms improved with supplemental oxygen via nasal canula. He was not hypoxic. He slept well. He notes that he has been very tired and sleeping a lot. He was seen and evaluated during hemodialysis this AM. He continues to feel very tired. He also continues to describe feeling cloudy and slightly lightheaded. He notes that he felt particularly lightheaded when he got out of bed this AM. Orthostatic changes in BP have not been appreciated on assessment. He believes that his medications are making him tired. He is tolerating dialysis well. He also describes notable fluid retention. He noticed swelling in his face and abdomen starting a few days ago which is getting more bothersome. His urine output has decreased. He is limiting his fluid intake to 3 bottles of water daily. He states that his appetite was not great yesterday and he only ate a ham sandwich but not much else. Review of Systems Review of Systems: All systems reviewed & are unremarkable except as noted in HPI & below Physical Exam Constitutional: well developed; no acute distress Eyes: + anicteric sclerae ENMT: external ear and nose normal, oropharynx normal Neck: normal visual inspection RIJ TDC Respiratory: normal respiratory effort; no respiratory distress Cardiovascular: Rate/Rhythm: regular rate Extremities: + edema Gastrointestinal (Abdomen): Inspection/Auscultation: + abdomen distended Percussion/Palpation: abdomen soft and + hepatosplenomegaly; no guarding and abdomen not rigid Musculoskeletal: Extremities: no cyanosis and no clubbing Skin: no lesions and no jaundice Neurologic: Motor/Sensory: no tremor and no asterixis Psychiatric: Orientation: alert and oriented x 3 Results & Data Vital Signs (Past 12 Hours) Vital Signs Temp Pulse Pulse Pulse Resp BP BP 05/03/25 10:00 83 145/74 H 05/03/25 09:30 84 147/76 H 05/03/25 09:00 82 161/87 H 05/03/25 08:59 82 165/87 H 05/03/25 08:52 36.5 C 92 H 05/03/25 08:04 36.4 C L 86 17 05/03/25 04:28 36.4 C L 74 16 140/83 05/03/25 00:01 36.5 C 84 16 166/94 H BP Pulse Ox O2 Del Method O2 Flow Rate 05/03/25 10:00 05/03/25 09:30 05/03/25 09:00 05/03/25 08:59 05/03/25 08:52 05/03/25 08:04 145/87 H 97 Room Air 05/03/25 04:28 97 Room Air 05/03/25 00:01 98 Nasal Cannula 3 Laboratory Results Laboratory Results - last 24 hr 05/03/25 07:17 WBC 4.62 L RBC 2.41 L Hgb 7.3 L Hct 20.2 L* MCV 83.8 MCH 30.3 MCHC 36.1 H RDW Std Deviation 39.7 RDW Coeff of Juliana 12.9 Plt Count 121 L MPV 11.1 Sodium 131 L Potassium 5.6 H Chloride 92 L Carbon Dioxide 28 Anion Gap 11 BUN 71 H Creatinine 11.89 H* Est Cr Clr Drug Dosing 11.2 eGFR 5.66 BUN/Creatinine Ratio 6.0 L Glucose 88 Calcium 9.7 Phosphorus 5.9 H Albumin 3.8 PG Care Time/CCT Total # of Minutes Spent Total Time Spent with Patient: Total time spent is greater than 50% in coordination of care (as documented) at patient's floor/unit and/or counseling patient: Coding Level of Care Code 58636 SUB INP/OBS CARE 3/50MIN Diagnoses End stage renal disease N18.6 Hypertensive emergency I16.1 Anemia D64.9
[2025-05-03] MEDS: EPOETIN ALFA 10,000 UNITS/ML VIAL IV STA (12:26)
--- NOTE | 2025-05-03 17:01 | Hospitalist Progress Note ---
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 Currently fair control on five agents, but has never been at goal -cont keppra 1000 mg po bid - continue at least 3 mo per neurology consult -of note - previous NHUNG, ANCA, etc all negative; CRP low at 1.1 -EEG negative for seizure focus -amyloid light chains negative -PRES is the cause of his visual complaints, ataxia, vertigo, severe headaches, etc. This has improved. gabapentin 200 mg bid may be helping with headache ppx -My colleague spoke with neurology at [facility] as well as [facility] last week -[place] neurology advised systolic BP goal to be <140 #Severe uncontrolled hypertension - -ongoing despite numerous BP meds and multiple med trials -secondary causes of HTN highly suspected but work-up negative -CTA renal arteries negative for FLORA -renin/mynor levels returned; no hyper-mynor -catecholamines negative about 2 weeks ago; plasma metanephrines this admission returned negative -TSH not c/w hyperthyroidism -he does not have obvious AIMEE, and overnight oximetry study checked and was very normal -anti-hypertensive med regimen: -minoxidil 10mg bid - increased 05/02 -Labetalol 400mg tid -Amlodipine 10mg po daily -Torsemide 40mg po BID -clonidine 0.2 mg po tid - increased 05/01 -aldactone 50mg daily - held for hyperkalemia -HD today removed 5L -cont labetalol 10mg IV q 4 hours as needed for SBP > 170 -he is 10 kg and 8L up for the stay - he doesn't think the torsemide is very effective for his UOP - electrical solderer has increased UF with dialysis - getting apx 5L off last three sessions -edema - a little improved. serum albumin normal at 3.7 Discussed extensively with electrical solderer Dr. Woods 05/02. To date, transfer requests to tertiary care at [facility] and [facility] have been declined. Procedural treatment like renal denervation may be necessary. Discussed BP monitoring with arterial line following HD as an option to definitively evaluate the hypertension. Would require ICU stay. 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 Note that platelets fell well after admission and also need to consider drug-induced thrombocytopenia -in light of severe LVH/cardiomegaly (which could be 2nd to severely uncontrolled HTN) - infiltrative disease such as amyloid -kappa/lambda light chains returned negative however -cardiac MRI recommended as outpatient -recent ferritin and transferrin saturation not elevated, thus hemochromatosis unlikely -sarcoidosis unlikely - OC level normal -HLH usually with a more acute, toxic looking presentation, consider atypical presentation -EBV panel with possible mono (later stage) but EBV PCR NEGATIVE -CMV titers negative -parvovirus titers negative -anaplasmosis/babesia DNA both negative -respiratory BioFire negative -NHUNG negative -B12/folate/TSH wnl -peripheral smear by pathology -- no signs of hemolysis, TTP, or other abnormalities -AM ESR and CRP -Dr Hawk from heme/onc provided consultation - bone marrow biopsy 04/29 still pending Monday afternoon. Still has pain from BMBx site - coming off IV hydromorphone today and occasional one-time doses ok. #Anemia - anemia of CKD and there may be another process at play as discussed above, phlebotomy is a factor at this point -Hg stable today 7.3 -YESSY given 04/30, 05/03 -blood transfusion is a last resort since can contribute to antibody formation which would impact future renal txp -avoid excessive blood draws -obtained transfusion consent, however, should not transfuse except in emergency without further discussion with Kvng and electrical solderer as above -AM CBC #Thrombocytopenia - platelet count is recovering now that SQ heparin stopped (he refused it last three days, not getting heparin on HD this week - discussed with yeast culture operator) -Kvng says his platelets always go down with heparin -platelets 74-->121 today -probably has anti-heparin Ab -no evidence of thrombosis at this time -avoid heparin, ordered PF4 antibody screen #Anxiety/Depression - -psychiatrist consulted this admission -Continue Sertraline 25mg po daily -Continue mirtazapine 15 mg HS -ativan 0.5mg BID prn anxiety #constipation - -opiate related -cont miralax #hyperkalemia - had resolved, recurred with spironolactone -stopped spironolactone -cont once daily Lokelma -improved. 5.6 today prior to HD # epistaxis vs hemoptysis - two weeks ago, consulted pulmonary, sinus CT negative, has not recurred #DVT ppx - -was on SQ heparin 5000 BID, he's been refusing last several days and platelet count is normalizing. Admission and Anticipated Discharge Date Admission Date: April 20, 2025 Subjective Face less puffy, though did feel lightheaded after HD with normal orthostatic VS. 5L taken off in HD Has headache but not severe. Tailbone pain from biopsy is much better. No oxycodone since yesterday Physical Exam 2 Physical Exam: Last 24h vitals reviewed GEN: awake, alert sitting up in bed, just getting off HD HEENT: pupils equal, sclerae anicteric, moist MM, some facial edema persists but better RESP: normal WOB ctab CV: tunneled HD line R upper chest ABD: nd : no conley SKIN: warm and dry, no generalized rashes EXT: some generalized nonpitting edema, improved NEURO: AOx person, place, and situation. Face symmetric, speech normal, moves 4 ext spontaneously and equally Results & Data Results & Data Vital Signs (Past 12 Hours) Vital Signs Temp Pulse Pulse Pulse Resp BP BP 05/03/25 13:04 37.1 C 90 174/101 H 05/03/25 13:00 90 176/102 H 05/03/25 12:30 88 189/101 H 05/03/25 12:00 85 175/102 H 05/03/25 11:30 86 168/92 H 05/03/25 11:00 81 159/88 H 05/03/25 10:30 82 155/77 H 05/03/25 10:00 83 145/74 H 05/03/25 09:30 84 147/76 H 05/03/25 09:00 82 161/87 H 05/03/25 08:59 82 165/87 H 05/03/25 08:52 36.5 C 92 H 05/03/25 08:04 36.4 C L 86 17 145/87 H 05/03/25 05:12 79 Pulse Ox O2 Del Method 05/03/25 13:04 05/03/25 13:00 05/03/25 12:30 05/03/25 12:00 05/03/25 11:30 05/03/25 11:00 05/03/25 10:30 05/03/25 10:00 05/03/25 09:30 05/03/25 09:00 05/03/25 08:59 05/03/25 08:52 05/03/25 08:04 97 Room Air 05/03/25 05:12 Laboratory Results 05/03/25 07:17 05/03/25 07:17 PG Care Time/CCT Total # of Minutes Spent Total Time Spent with Patient: Total time spent is greater than 50% in coordination of care (as documented) at patient's floor/unit and/or counseling patient: Coding Level of Care Code 73108 SUB INP/OBS CARE 3/50MIN Diagnoses Seizure R56.9 PRES (posterior reversible encephalopathy syndrome) I67.83 ESRD on hemodialysis N18.6; Z99.2 Acute intractable headache, unspecified headache type R51.9 Headache type: unspecified Headache chronicity pattern: acute headache Severe uncontrolled hypertension I10 Pancytopenia D61.818 (4) Intractable headache Headache type: unspecified Headache chronicity pattern: acute headache Qualified Code(s): R51.9 - Headache, unspecified
[2025-05-04 08:23] LABS: Hematocrit (blood only) 20.5 % (42.0-52.0); Hemoglobin 7.1 g/dl (14.0-18.0); Mean Corpuscular Hemoglobin 29.7 pg (25.0-34.0); Mean Corpuscular Volume 85.8 fL (80.0-100.0); Platelet Count 113 K/uL (130-400); RDW Standard Deviation 41.8 fL (36.4-46.3); Red Blood Count 2.39 M/uL (4.70-6.10); White Blood Count 4.62 K/ul (4.8-10.8)
[2025-05-04 08:31] LABS: Anion Gap 10.0 (3-11); Blood Urea Nitrogen 66.0 mg/dl (6-23); Calcium 9.6 mg/dl (8.6-10.3); Carbon Dioxide 27.0 mmol/L (21-32); Chloride 101.0 mmol/L (98-107); Creatinine Clr Calc Pharmacy 14.7 ml/min; Glucose 91.0 mg/dl (70-99(Fasting)); Potassium 5.2 mmol/L (3.5-5.1); Sodium 138.0 mmol/L (136-145)
--- NOTE | 2025-05-04 09:49 | Hospitalist Progress Note ---
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 This has improved. gabapentin 200 mg bid may be helping with headache ppx -My colleague spoke with neurology at [facility] as well as [facility] last week -[place] neurology advised systolic BP goal to be <140, which we've been unable to achieve on 5 antihypertensives #Severe uncontrolled hypertension - -ongoing despite numerous BP meds and multiple med trials -secondary causes of HTN highly suspected but work-up negative -CTA renal arteries negative for FLORA -renin/mynor levels returned; no hyper-mynor -catecholamines negative about 2 weeks ago; plasma metanephrines this admission returned negative -TSH not c/w hyperthyroidism -he does not have obvious AIMEE, and overnight oximetry study checked and was very normal -anti-hypertensive med regimen: -minoxidil 10mg bid - increased 05/02 -Labetalol 400mg tid -Amlodipine 10mg po daily -Torsemide 40mg po BID -clonidine 0.2 mg po tid - increased 05/01 -aldactone 50mg daily - held for hyperkalemia -HD 05/03 removed 5L #Intractable headache - -2nd to PRES/uncontrolled HTN -imaging w/o ICH -MRV head negative for dural thrombosis -no evidence of meningitis on examination Headache has improved a lot -gabapentin 200 bid for headache ppx -changed APAP to PRN - risk of rebound headaches -headache currently being controlled with infrequent oxycodone 10 mg doses and APAP #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 Note that platelets fell well after admission and may be heparin induced -in light of severe LVH/cardiomegaly (which could be 2nd to severely uncontrolled HTN) - infiltrative disease such as amyloid was considered -kappa/lambda light chains returned negative however -cardiac MRI recommended as outpatient -ordered alpha-Gal ativity - screening test for Fabry's disease, though not seen on EM of his kidney biopsy. Discussed with Dr. Woods -consider testing for mitochondrial cytopathy which would also fit, and is not as rare as I thought, consider Gaucher's which also mostly fits the pattern and could be seen on bone marrow biopsy -recent ferritin and transferrin saturation not elevated, thus hemochromatosis unlikely -sarcoidosis unlikely - OC level normal -HLH usually with a more acute, toxic looking presentation, consider atypical presentation -EBV panel with possible mono (later stage) but EBV PCR NEGATIVE -CMV titers negative -parvovirus titers negative -anaplasmosis/babesia DNA both negative -respiratory BioFire negative -NHUNG negative -B12/folate/TSH wnl -peripheral smear by pathology -- no signs of hemolysis, TTP, or other abnormalities -AM ESR and CRP -Dr Hawk from heme/onc provided consultation - bone marrow biopsy 04/29 still pending Monday. Flow cytometry was normal #Anemia - anemia of CKD and there may be another process at play as discussed above, phlebotomy is a factor at this point -Hg stable today 7.3 -YESSY given 04/30, 05/03 -blood transfusion is a last resort since can contribute to antibody formation which would impact future renal txp -avoid excessive blood draws -obtained transfusion consent, however, should not transfuse except in emergency without further discussion with Kvng and drive man as above -AM CBC #Thrombocytopenia - platelet count is recovering now that SQ heparin stopped -Kvng says his platelets always go down with heparin -platelets 74-->121, 113 -probably has anti-heparin Ab -no evidence of thrombosis at this time -avoid heparin, ordered PF4 antibody screen #cough/congestion/malaise 05/04 - sounds like viral URI - ordered resp Biofire and CXR #Anxiety/Depression - -psychiatrist consulted this admission -Continue Sertraline 25mg po daily -Continue mirtazapine 15 mg HS -ativan 0.5mg BID prn anxiety #hyperkalemia - had resolved, recurred with spironolactone -stopped spironolactone -cont once daily Lokelma -5.2 today # epistaxis vs hemoptysis - two weeks ago, consulted pulmonary, sinus CT negative, has not recurred #DVT ppx - -was on SQ heparin 5000 BID, he's been refusing last several days and platelet count is normalizing. Admission and Anticipated Discharge Date Admission Date: April 20, 2025 Subjective has malaise/myalgia, cough, nasal/chest congestion. 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 Face symmetric, speech normal, moves 4 ext spontaneously and equally Results & Data Results & Data Vital Signs (Past 12 Hours) Vital Signs Temp Pulse Pulse Resp BP BP Pulse Ox 05/04/25 07:25 36.6 C 88 17 165/95 H 96 05/04/25 05:14 89 05/04/25 04:24 36.7 C 93 H 17 162/87 H 94 05/03/25 23:56 36.7 C 107 H 18 147/80 H 92 05/03/25 22:31 104 H O2 Del Method 05/04/25 07:25 Room Air 05/04/25 05:14 05/04/25 04:24 Room Air 05/03/25 23:56 Room Air 05/03/25 22:31 Laboratory Results 05/04/25 07:37 05/04/25 07:37 PG Care Time/CCT Total # of Minutes Spent Total Time Spent with Patient: Total time spent is greater than 50% in coordination of care (as documented) at patient's floor/unit and/or counseling patient: Coding Level of Care Code 09012 SUB INP/OBS CARE MIN Diagnoses Seizure R56.9 PRES (posterior reversible encephalopathy syndrome) I67.83 ESRD on hemodialysis N18.6; Z99.2 Acute intractable headache, unspecified headache type R51.9 Headache type: unspecified Headache chronicity pattern: acute headache Severe uncontrolled hypertension I10 Pancytopenia D61.818 (4) Intractable headache Headache type: unspecified Headache chronicity pattern: acute headache Qualified Code(s): R51.9 - Headache, unspecified
[2025-05-04 10:35] LABS: Chlamydia pneumoniae PCR Not Detected (NotDetected); Coronavirus 229E PCR Not Detected (NotDetected); Coronavirus CoV-2 (COVID19)PCR Not Detected (NotDetected); Coronavirus HKU1 PCR Not Detected (NotDetected); Coronavirus NL63 PCR Not Detected (NotDetected); Coronavirus OC43PCR Not Detected (NotDetected); Human Metapneumovirus PCR Not Detected (NotDetected); Parainfluenza Virus 1 PCR Not Detected (NotDetected); Parainfluenza Virus 2 PCR Not Detected (NotDetected); Parainfluenza Virus 3 PCR Not Detected (NotDetected); Parainfluenza Virus 4 PCR Not Detected (NotDetected); Respiratory Syncytial VirusPCR Not Detected (NotDetected); Rhinovirus/Enterovirus PCR Not Detected (NotDetected)
--- NOTE | 2025-05-04 10:59 | Nephrology Progress Note ---
Date of Service May 04, 2025 Assessment & Plan (1) End stage renal disease: Plan: Tolerated HD reasonably well yesterday. Fito tolerates aggressive ultrafiltration well. Will plan for a 3 hour treatment today for additional clearance and UF. Fito did not clear as well with treatment as I would have expected. I cannot exclude recirculation. Review of the medical record demonstrates a trend of possible recirculation during treatment. Hopefully we will be able to reconcile this with additional HD treatments. TDC may certainly may contribute and hopefully this could be overcome by adjusting Qb during HD. Advantages of a AVF have been well established but this has been very delayed due to multiple hospitalizations, difficulty controlling BP, and PRES. It seems less likely but possible that PFO may contribute to recirculation. We have discussed potential advantages of peritoneal dialysis for clearance and management of volume status. I can see several advantages of PD. Some patient are able to reduce the reliance of antihypertensive medications but Fito does not feel that home therapy is an option that would work for him at this time. He understands potential advantages and we did discuss an urgent start option. Orders for HD have been entered into the EHR and reviewed with assistant track and field coach. Maintain daily fluid restriction 1.2 L. Low sodium, low potassium diet. Outpatient HD Rx: TTS 3.75 Fx CorAL80 BFR 400/QD800 2K 2Ca 1Mg Na140 HCO3 40. Medications appropriate for IHD. (2) Hypertensive emergency: Plan: Improvement noted. Unfortunately, Fito does not feel well. He describes some orthostatic lightheadedness without orthostatic changes in vitals. He describes fogginess and lightheadedness. Symptoms likely related to medications, frequent hemodynamic changes with HD, and anemia. It is unclear to me whether there may be a hemodynamic contribution of LVOT given areas of asymmetric thickening. On Monday, I increased minoxidil to 10 mg twice daily. Continue torsemide to encourage urine output. Remains on amlodipine 10 mg daily, clonidine 0.2 TID, labetalol 400 mg TID (HR ~80-90 bpm). Ongoing discussion for possible renal denervation. Accelerated hypertension complicated by PRES and significant endothelial inflammation. (3) Anemia: Plan: Hematology following. Bone marrow pending. Pancytopenias stable. Hepatosplenomegaly. No obvious intravascular hemolysis - no schistocytes on peripheral smear. DDx includes various forms of endothelial inflammation, including HLH. I am working on adequate clearance with HD to help exclude uremia as a contributing factor. (4) LVH (left ventricular hypertrophy): Plan: I discussed with Dr. Felix this AM. Changes on echocardiography, including asymmetric LVH and PFO, may be contributing to hemodynamic symptoms but it is not clear. Fito seems to tolerate UF with dialysis well. We have never documented intradialytic hypotension. I would like to continue to challenge with fluid removal. It would be unlikely to have Fabry's disease contribute to kidney failure without seeing findings on EM but reasonable to consider on basis of asymmetric LVH. Genetic testing of consultation with cardiology may be helpful in this regard. Admission and Anticipated Discharge Date Admission Date: April 20, 2025 Subjective Fito remains tired this AM. He continues to report a generalized malaise and some myalgias. No fevers or chills. He tolerated HD reasonably well yesterday but treatments are exhausting. Fito notices swelling and fluid retention (facial puffiness, abdominal fullness, and edema in his lower legs and ankles) within an hour or two of his dialysis treatments. Lower extremity edema and fullness in his face start to recede after taking a short nap and keeping his feet elevated. He is not experiencing significant dyspnea. No headaches. Mild orthostatic lightheadedness persists but this was slightly improved. He is limiting his sodium and fluid intake. He has had little to drink since HD yesterday. Review of Systems Review of Systems: All systems reviewed & are unremarkable except as noted in HPI & below Physical Exam Constitutional: well developed; no acute distress Eyes: + anicteric sclerae ENMT: external ear and nose normal, oropharynx normal Neck: normal visual inspection Respiratory: normal respiratory effort; no respiratory distress Cardiovascular: Rate/Rhythm: regular rate and + tachycardic Extremities: + edema (improved BL LE) Gastrointestinal (Abdomen): Inspection/Auscultation: abdomen not distended Percussion/Palpation: abdomen soft and + hepatosplenomegaly; no guarding and abdomen not rigid Musculoskeletal: Extremities: no cyanosis and no clubbing Skin: no lesions and no jaundice Neurologic: Motor/Sensory: no tremor and no asterixis Psychiatric: Orientation: alert and oriented x 3 Results & Data Vital Signs (Past 12 Hours) Vital Signs Temp Pulse Pulse Resp BP BP Pulse Ox 05/04/25 07:25 36.6 C 88 17 165/95 H 96 05/04/25 05:14 89 05/04/25 04:24 36.7 C 93 H 17 162/87 H 94 05/03/25 23:56 36.7 C 107 H 18 147/80 H 92 O2 Del Method 05/04/25 07:25 Room Air 05/04/25 05:14 05/04/25 04:24 Room Air 05/03/25 23:56 Room Air Laboratory Results Laboratory Results - last 24 hr 05/04/25 05/04/25 07:37 Unknown WBC 4.62 L RBC 2.39 L Hgb 7.1 L Hct 20.5 L* MCV 85.8 MCH 29.7 MCHC 34.6 RDW Std Deviation 41.8 RDW Coeff of Juliana 13.4 Plt Count 113 L MPV 10.6 ESR 3 Sodium 138 Potassium 5.2 H Chloride 101 Carbon Dioxide 27 Anion Gap 10 BUN 66 H Creatinine 9.04 H* D Est Cr Clr Drug Dosing 14.7 eGFR 7.87 BUN/Creatinine Ratio 7.3 L Glucose 91 Calcium 9.6 Phosphorus 5.9 H C-Reactive Protein 1.06 H Albumin 3.9 Serotonin Release Assay Pending Heparin Depend Plt Ab Pending Adenovirus (PCR) Not Detected B. pertussis DNA (PCR) Not Detected B.parapertussis DNA PCR Not Detected C. pneumoniae DNA (PCR) Not Detected Coronavirus OC43 (PCR) Not Detected Coronavirus HKU1 (PCR) Not Detected Coronavirus 229E (PCR) Not Detected SARS-CoV-2 (PCR) Not Detected Coronavirus NL63 (PCR) Not Detected Human Metapneumovir PCR Not Detected Influenza Type A (PCR) Not Detected Influenza Type B (PCR) Not Detected M. pneumoniae (PCR) Not Detected Parainfluenza 1 (PCR) Not Detected Parainfluenza 2 (PCR) Not Detected Parainfluenza 3 (PCR) Not Detected Parainfluenza 4 (PCR) Not Detected RSV (PCR) Not Detected Entero/Rhino (PCR) Not Detected PG Care Time/CCT Total # of Minutes Spent Total Time Spent with Patient: Total time spent is greater than 50% in coordination of care (as documented) at patient's floor/unit and/or counseling patient: Coding Level of Care Code 35534 SUB INP/OBS CARE 3/50MIN Diagnoses End stage renal disease N18.6 Hypertensive emergency I16.1 Anemia D64.9 LVH (left ventricular hypertrophy) I51.7
--- NOTE | 2025-05-04 11:00 | XRay Report ---
XR chest 1V portable HISTORY: 20 years-old Male cough acute cough COMPARISON: 04/22/2025 TECHNIQUE: AP view the chest FINDINGS: Right IJ dual-lumen hemodialysis catheter is unchanged. Cardiomegaly. Trace pleural effusions with pu lmonary vascular congestion. No pneumothorax or lobar airspace consolidation. Interstitial coarsening is noted. Bones appear grossly intact. IMPRESSION: Cardiomegaly with small pleural effusions and probable interstitial pulmonary edema. ACT 112: Negative or not required by law. The above report was generated using voice recognition software. It may contain grammatical, syntax o r spelling errors. Electronically signed by: Filemon Gibbs M.D. 05/04/2025 10:59 AM
[2025-05-04] MEDS: HYDROmorphone INJ 1 MG/ML SYRINGE IV STA (14:38)
[2025-05-05 06:47] LABS: Hematocrit (blood only) 19.4 % (42.0-52.0); Hemoglobin 6.8 g/dl (14.0-18.0); Mean Corpuscular Hemoglobin 30.1 pg (25.0-34.0); Mean Corpuscular Volume 85.8 fL (80.0-100.0); Platelet Count 120 K/uL (130-400); RDW Standard Deviation 41.8 fL (36.4-46.3); Red Blood Count 2.26 M/uL (4.70-6.10); White Blood Count 4.10 K/ul (4.8-10.8)
[2025-05-05 07:12] LABS: Anion Gap 10.0 (3-11); Blood Urea Nitrogen 64.0 mg/dl (6-23); Calcium 9.4 mg/dl (8.6-10.3); Carbon Dioxide 30.0 mmol/L (21-32); Chloride 100.0 mmol/L (98-107); Creatinine Clr Calc Pharmacy 15.4 ml/min; Glucose 110.0 mg/dl (70-99(Fasting)); Potassium 4.6 mmol/L (3.5-5.1); Sodium 140.0 mmol/L (136-145)
[2025-05-05 10:42] LABS: Hematocrit (blood only) 20.8 % (42.0-52.0); Hemoglobin 7.2 g/dl (14.0-18.0)
--- NOTE | 2025-05-05 10:50 | Nephrology Progress Note ---
Date of Service May 05, 2025 Assessment & Plan (1) End stage renal disease: Plan: Tolerated HD well yesterday. Adequate clearance with treatment. Volume status controlled. Next HD planned for tomorrow. Maintain daily fluid restriction 1.2 L. Low sodium, low potassium diet. Outpatient HD Rx: TTS 3.75 Fx CorAL80 BFR 400/QD800 2K 2Ca 1Mg Na140 HCO3 40. Medications appropriate for IHD. (2) Hypertensive emergency: Plan: Improvement noted. Continue minoxidil to 10 mg twice daily. Continue torsemide to encourage urine output. Remains on amlodipine 10 mg daily, clonidine 0.2 TID, labetalol 400 mg TID (HR ~80-90 bpm). Ongoing discussion for possible renal denervation. Accelerated hypertension complicated by PRES and significant endothelial inflammation. (3) Anemia: Plan: Hematology following. Bone marrow pending. Pancytopenias stable. Hepatosplenomegaly. No obvious intravascular hemolysis - no schistocytes on peripheral smear. Hgb repeat pending this AM. May consider transfusion poor if improvement is not seen. (4) LVH (left ventricular hypertrophy): Admission and Anticipated Discharge Date Admission Date: April 20, 2025 Subjective No acute events overnight. Fito tolerated HD well yesterday. He reports a mild headache with treatment. He typically experiences headaches during hemodialysis. Thankfully, symptoms resolved. Fluid retention/edema have improved. He is br eathing comfortably. He feels reasonably well overall today. He denies melena or hematochezia. Review of Systems Review of Systems: All systems reviewed & are unremarkable except as noted in HPI & below Physical Exam Constitutional: well developed; no acute distress Eyes: + anicteric sclerae ENMT: external ear and nose normal, oropharynx normal Neck: normal visual inspection Respiratory: normal respiratory effort; no respiratory distress Cardiovascular: Rate/Rhythm: regular rate and + tachycardic Extremities: + edema (improved BL LE) Gastrointestinal (Abdomen): Inspection/Auscultation: abdomen not distended Percussion/Palpation: abdomen soft and + hepatosplenomegaly; no guarding and abdomen not rigid Musculoskeletal: Extremities: no cyanosis and no clubbing Skin: no lesions and no jaundice Neurologic: Motor/Sensory: no tremor and no asterixis Psychiatric: Orientation: alert and oriented x 3 Results & Data Vital Signs (Past 12 Hours) Vital Signs Temp Pulse Resp BP BP Pulse Ox O2 Del Method 08/11/25 07:46 36.6 C 86 17 139/81 100 Room Air 05/05/25 04:25 36.7 C 95 H 17 147/71 H 96 Room Air 05/04/25 23:35 36.7 C 100 H 17 142/76 H 95 Room Air Laboratory Results Laboratory Results - last 24 hr 04/29/25 05/05/25 05/05/25 09:15 06:13 09:55 WBC 4.10 L RBC 2.26 L Hgb 6.8 L* 7.2 L Hct 19.4 L* 20.8 L* MCV 85.8 MCH 30.1 MCHC 35.1 RDW Std Deviation 41.8 RDW Coeff of Juliana 13.4 Plt Count 120 L MPV 10.9 Sodium 140 Potassium 4.6 Chloride 100 Carbon Dioxide 30 Anion Gap 10 BUN 64 H Creatinine 8.67 H* D Est Cr Clr Drug Dosing 15.4 eGFR 8.27 BUN/Creatinine Ratio 7.4 L Glucose 110 H Calcium 9.4 Phosphorus 5.4 H Albumin 3.6 Misc Pathology Test Pending Miscellaneous Test Pending Blood Type Pending Antibody Screen Pending PG Care Time/CCT Total # of Minutes Spent Total Time Spent with Patient: Total time spent is greater than 50% in coordination of care (as documented) at patient's floor/unit and/or counseling patient: Coding Level of Care Code 06899 SUB INP/OBS CARE 3/50MIN Diagnoses End stage renal disease N18.6 Hypertensive emergency I16.1 Anemia D64.9 LVH (left ventricular hypertrophy) I51.7
[2025-05-05] MEDS ORDERED: SODIUM ZIRCONIUM CYCLOSILICATE 10 GM PACKET PO SCH (17:00)
--- NOTE | 2025-05-05 17:00 | Hospitalist Progress Note ---
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 This has improved. gabapentin 200 mg bid may be helping with headache ppx -symptoms overall much improved -My colleague spoke with neurology at [facility] as well as [facility] last week -[place] neurology advised systolic BP goal to be <140, which we've been unable to achieve on 5 antihypertensives #Severe uncontrolled hypertension - -ongoing despite numerous BP meds and multiple med trials -secondary causes of HTN highly suspected but work-up negative -CTA renal arteries negative for FLORA -renin/mynor levels returned; no hyper-mynor -catecholamines negative about 2 weeks ago; plasma metanephrines this admission returned negative -TSH not c/w hyperthyroidism -he does not have obvious AIMEE, and overnight oximetry study checked and was very normal -anti-hypertensive med regimen: -minoxidil 10mg bid - increased 05/02 -Labetalol 400mg tid -Amlodipine 10mg po daily -Torsemide 40mg po BID -clonidine 0.2 mg po tid - increased 05/01 -aldactone 50mg daily - held for hyperkalemia -HD 05/03 removed 5L, 05/04 another 5L or so. BP improved with volume status. 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 Note that platelets fell well after admission and may be heparin induced -in light of severe LVH/cardiomegaly (which could be 2nd to severely uncontrolled HTN) - infiltrative disease such as amyloid was considered -kappa/lambda light chains returned negative however -cardiac MRI recommended as outpatient -ordered alpha-Gal ativity - screening test for Fabry's disease, though not seen on EM of his kidney biopsy. Pending -consider testing for mitochondrial cytopathy which would also fit, and is not as rare as I thought, consider Gaucher's which also mostly fits the pattern and could be seen on bone marrow biopsy -recent ferritin and transferrin saturation not elevated, thus hemochromatosis unlikely -sarcoidosis unlikely - OC level normal -HLH usually with a more acute, toxic looking presentation, consider atypical presentation -EBV panel with possible mono (later stage) but EBV PCR NEGATIVE -CMV titers negative -parvovirus titers negative -anaplasmosis/babesia DNA both negative -respiratory BioFire negative -NHUNG negative -B12/folate/TSH wnl -peripheral smear by pathology -- no signs of hemolysis, TTP, or other abnormalities -AM ESR and CRP -Dr Hawk from heme/onc provided consultation - bone marrow biopsy 04/29 still pending Monday. Flow cytometry was normal #Anemia - anemia of CKD and there may be another process at play as discussed above, phlebotomy is a factor at this point -Hg stable today 7.3 -YESSY given 04/30, 05/03 -blood transfusion is a last resort since can contribute to antibody formation which would impact future renal txp -avoid excessive blood draws -obtained transfusion consent, however, should not transfuse except in emergency without further discussion with Kvng and multimedia manager as above -AM CBC #Thrombocytopenia - platelet count is recovering now that SQ heparin stopped -Kvng says his platelets always go down with heparin. He may also have some thrombocytopenia from splenomegaly -platelets 74-->120s -probably has anti-heparin Ab -no evidence of thrombosis at this time -avoid heparin, ordered PF4 antibody screen/ANAT - pending #cough/congestion/malaise 05/04 - resp Biofire neg, CXR reviewed - pulmonary edema and small pleural effusions, no focal infiltrates -rhinitis resolved after removing lipscomb c/w environmental allergy #Anxiety/Depression - -psychiatrist consulted this admission -Continue Sertraline 25mg po daily -Continue mirtazapine 15 mg HS -ativan 0.5mg BID prn anxiety #hyperkalemia - had resolved, recurred with spironolactone -stopped spironolactone -cont once daily Lokelma -4 today # epistaxis vs hemoptysis - two weeks ago, consulted pulmonary, sinus CT negative, has not recurred #DVT ppx - -was on SQ heparin 5000 BID, he's been refusing last several days and platelet count is normalizing. -if not home soon consider apixaban low dose Discussed with Dr. Woods Admission and Anticipated Discharge Date Admission Date: April 20, 2025 Subjective Feeling at his usual recent baseline today, better, only had a minimal headache Face/legs no longer so edematous Rhinitis sx better after lipscomb removed from room Achy from huge volume off over w/e Physical Exam 2 Physical Exam: Last 24h vitals reviewed GEN: sitting up on EOB HEENT: pupils equal, sclerae anicteric, moist MM, some facial edema persists but better RESP: normal WOB ctab no rrw - remains clear CV: tunneled HD line R upper chest ABD: nd : no conley SKIN: warm and dry, no generalized rashes EXT: some generalized nonpitting edema, improved to resolved NEURO: AOx person, place, and situation. Face symmetric, speech normal, moves 4 ext spontaneously and equally Results & Data Results & Data Vital Signs (Past 12 Hours) Vital Signs Temp Pulse Pulse Resp BP Pulse Ox O2 Del Method 05/05/25 15:55 36.4 C L 83 18 144/74 H 97 Room Air 05/05/25 12:58 80 05/05/25 12:05 36.7 C 87 18 151/73 H 97 Room Air 05/05/25 07:46 36.6 C 86 17 139/81 100 Room Air 05/05/25 05:31 87 Laboratory Results 05/05/25 09:55 05/05/25 06:13 PG Care Time/CCT Total # of Minutes Spent Total Time Spent with Patient: Total time spent is greater than 50% in coordination of care (as documented) at patient's floor/unit and/or counseling patient: Coding Level of Care Code 75046 SUB INP/OBS CARE 2/35MIN Diagnoses Seizure R56.9 PRES (posterior reversible encephalopathy syndrome) I67.83 ESRD on hemodialysis N18.6; Z99.2 Acute intractable headache, unspecified headache type R51.9 Headache type: unspecified Headache chronicity pattern: acute headache Severe uncontrolled hypertension I10 Pancytopenia D61.818 (4) Intractable headache Headache type: unspecified Headache chronicity pattern: acute headache Qualified Code(s): R51.9 - Headache, unspecified
[2025-05-05] MEDS: SODIUM ZIRCONIUM CYCLOSILICATE 10 GM PACKET PO SCH (19:25)
[2025-05-06 06:14] LABS: Anion Gap 14.0 (3-11); Blood Urea Nitrogen 90.0 mg/dl (6-23); Calcium 9.6 mg/dl (8.6-10.3); Carbon Dioxide 27.0 mmol/L (21-32); Chloride 100.0 mmol/L (98-107); Creatinine Clr Calc Pharmacy 11.1 ml/min; Glucose 98.0 mg/dl (70-99(Fasting)); Potassium 5.0 mmol/L (3.5-5.1); Sodium 141.0 mmol/L (136-145)
[2025-05-06 06:16] LABS: Hematocrit (blood only) 18.9 % (42.0-52.0); Hemoglobin 6.6 g/dl (14.0-18.0); Mean Corpuscular Hemoglobin 30.1 pg (25.0-34.0); Mean Corpuscular Volume 86.3 fL (80.0-100.0); Platelet Count 120 K/uL (130-400); RDW Standard Deviation 42.5 fL (36.4-46.3); Red Blood Count 2.19 M/uL (4.70-6.10); White Blood Count 4.95 K/ul (4.8-10.8)
[2025-05-06 10:36] LABS: Hematocrit (blood only) 18.4 % (42.0-52.0); Hemoglobin 6.3 g/dl (14.0-18.0)
[2025-05-06] MEDS ORDERED: SODIUM CHLORIDE 0.9% 100 ML IV PRN (10:41)
--- NOTE | 2025-05-06 10:53 | Nephrology Progress Note ---
Date of Service May 06, 2025 Assessment & Plan (1) End stage renal disease: Plan: Orders for HD entered into the EHR and reviewed with prover. Fito is tolerating treatment well. Continue TTS schedule. Maintain daily fluid restriction 1.2 L. Low sodium, low potassium diet. Outpatient HD Rx: TTS 3.75 Fx CorAL80 BFR 400/QD800 2K 2Ca 1Mg Na140 HCO3 40. Medications appropriate for IHD. (2) Hypertensive emergency: Plan: Improvement noted. Continue minoxidil to 10 mg twice daily. Continue torsemide to encourage urine output. Remains on amlodipine 10 mg daily, clonidine 0.2 TID, labetalol 400 mg TID (HR ~80-90 bpm). Ongoing discussion for possible renal denervation. Accelerated hypertension complicated by PRES and significant endothelial inflammation. Fito has requested outside consultation with a specialist in BP management after discharge. (3) Anemia: Plan: Hematology following. Bone marrow pending. Hepatosplenomegaly. No obvious intravascular hemolysis - no schistocytes on peripheral smear. Hgb dropped this AM. Will type and cross 2 units with orders to transfuse 1 unit now. Second unit will be provided if Hgb remains <7. (4) LVH (left ventricular hypertrophy): Admission and Anticipated Discharge Date Admission Date: April 20, 2025 Subjective No acute events overnight. Fito was seen and evaluated during dialysis this AM. He feels reasonably well. He reports some mild lightheadedness when standing but otherwise states that he feels significantly better. "I could go back to work." He denies dyspnea. No melena or hematochezia. Tolerating HD well. Some increased edema appreciated since yesterday. Review of Systems Review of Systems: All systems reviewed & are unremarkable except as noted in HPI & below Physical Exam Constitutional: well developed; no acute distress Eyes: + anicteric sclerae ENMT: external ear and nose normal, oropharynx normal Neck: normal visual inspection Respiratory: normal respiratory effort; no respiratory distress Auscultation: lungs clear to auscultation bilaterally Cardiovascular: Rate/Rhythm: regular rate and + tachycardic Heart Sounds: normal S1 and normal S2 Extremities: + edema Musculoskeletal: Extremities: no cyanosis and no clubbing Skin: no lesions and no jaundice Neurologic: Motor/Sensory: no tremor and no asterixis Psychiatric: Orientation: alert and oriented x 3 Results & Data Vital Signs (Past 12 Hours) Vital Signs Temp Pulse Pulse Pulse Resp BP BP 05/06/25 10:30 92 H 164/89 H 05/06/25 10:00 91 H 146/72 H 05/06/25 09:30 92 H 143/70 H 05/06/25 09:00 93 H 164/89 H 05/06/25 08:56 97 H 160/90 H 05/06/25 08:51 36.5 C 97 H 05/06/25 08:01 36.4 C L 89 21 152/78 H 05/06/25 08:00 91 H 05/06/25 02:40 36.5 C 100 H 18 BP Pulse Ox O2 Del Method 05/06/25 10:30 05/06/25 10:00 05/06/25 09:30 05/06/25 09:00 05/06/25 08:56 05/06/25 08:51 05/06/25 08:01 97 Room Air 05/06/25 08:00 05/06/25 02:40 158/86 H 93 Room Air Laboratory Results Laboratory Results - last 24 hr 05/04/25 05/05/25 05/06/25 07:37 09:55 05:32 WBC 4.95 RBC 2.19 L Hgb 6.6 L* Hct 18.9 L* MCV 86.3 MCH 30.1 MCHC 34.9 RDW Std Deviation 42.5 RDW Coeff of Juliana 13.7 Plt Count 120 L MPV 10.9 Absolute Nucleated RBC 0.02 Nucleated RBC % (auto) 0.4 Sodium 141 Potassium 5.0 Chloride 100 Carbon Dioxide 27 Anion Gap 14 H BUN 90 H D Creatinine 12.01 H* D Est Cr Clr Drug Dosing 11.1 eGFR 5.60 BUN/Creatinine Ratio 7.5 L Glucose 98 Calcium 9.6 Serotonin Release Assay See Scanned Report Heparin Depend Plt Ab See Scanned Report Blood Type AB Positive Antibody Screen NEGATIVE 05/06/25 09:49 WBC RBC Hgb 6.3 L* Hct 18.4 L* MCV MCH MCHC RDW Std Deviation RDW Coeff of Juliana Plt Count MPV Absolute Nucleated RBC Nucleated RBC % (auto) Sodium Potassium Chloride Carbon Dioxide Anion Gap BUN Creatinine Est Cr Clr Drug Dosing eGFR BUN/Creatinine Ratio Glucose Calcium Serotonin Release Assay Heparin Depend Plt Ab Blood Type Antibody Screen PG Care Time/CCT Total # of Minutes Spent Total Time Spent with Patient: Total time spent is greater than 50% in coordination of care (as documented) at patient's floor/unit and/or counseling patient: Coding Level of Care Code 34012 SUB INP/OBS CARE 350MIN Diagnoses End stage renal disease N18.6 Hypertensive emergency I16.1 Anemia D64.9 LVH (left ventricular hypertrophy) I51.7
--- NOTE | 2025-05-06 13:56 | Communication Note ---
Date of Service: May 06, 2025 Patient scheduled for fistula creation tomorrow. Due to his uncontrolled htn, will hold off on the surgery till his pressure is better controlled.
--- NOTE | 2025-05-06 20:07 | Hospitalist Progress Note ---
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 gabapentin 200 mg bid may be helping with headache ppx -symptoms overall much improved / resolving -My colleague spoke with neurology at [facility] as well as [facility] 7-10 days ago -transfers declined to [facility], [facility], [facility] neurology advised systolic BP goal to be <140, which we've been unable to achieve on 5 antihypertensives #Severe uncontrolled hypertension - -ongoing despite numerous BP meds and multiple med trials -secondary causes of HTN highly suspected but work-up negative -CTA renal arteries negative for FLORA -renin/mynor levels returned; no hyper-mynor -catecholamines negative about 2 weeks ago; plasma metanephrines this admission returned negative -TSH not c/w hyperthyroidism -he does not have obvious AIMEE, and overnight oximetry study checked and was very normal -anti-hypertensive med regimen: -minoxidil 10mg bid - increased 05/02 -Labetalol 400mg tid -Amlodipine 10mg po daily -Torsemide 40mg po BID -clonidine 0.2 mg po tid - increased 05/01 -aldactone 50mg daily - held for hyperkalemia -BP improved with intensive volume removal with HD monday and monday. Today 140-185/72-107 #Intractable headache - -2nd to PRES/uncontrolled HTN -imaging w/o ICH -MRV head negative for dural thrombosis -no evidence of meningitis on examination Headache has improved a lot -gabapentin 200 bid for headache ppx -changed APAP to PRN - risk of rebound headaches -headache currently being controlled with infrequent oxycodone 10 mg doses and APAP, though did have a severe JUAREZ after dialysis this weekend #ESRD secondary to FSGS on HD - -Continue Phoslo -HD 3 days/week -hyperkalemia on spironolactone earlier in admission, stopped. Managed with HD and daily Lokelma. 5.0 today #Hepatosplenomegaly, cardiac apical hypertrophy, and pancytopenia - unclear etiology and unclear whether they are directly related to his renal failure. Note that platelets fell well after admission and may be heparin induced -in light of severe LVH/cardiomegaly (which could be 2nd to severely uncontrolled HTN) - infiltrative disease such as amyloid was considered -kappa/lambda light chains returned negative however -cardiac MRI recommended as outpatient -ordered alpha-Gal ativity - screening test for Fabry's disease, though not seen on EM of his kidney biopsy. Pending -consider testing for mitochondrial cytopathy which would also fit, and is not as rare as I thought, consider Gaucher's which also mostly fits the pattern and could be seen on bone marrow biopsy -recent ferritin and transferrin saturation not elevated, thus hemochromatosis unlikely -sarcoidosis unlikely - OC level normal -HLH usually with a more acute, toxic looking presentation, consider atypical presentation -EBV panel with possible mono (later stage) but EBV PCR NEGATIVE -CMV titers negative -parvovirus titers negative -anaplasmosis/babesia DNA both negative -respiratory BioFire negative -NHUNG negative -B12/folate/TSH wnl -peripheral smear by pathology -- no signs of hemolysis, TTP, or other abnormalities -AM ESR and CRP -Dr Hawk from heme/onc provided consultation - bone marrow biopsy 04/29 still pending. Flow cytometry was normal #Anemia - anemia of CKD and there may be another process at play as discussed above, phlebotomy is a factor at this point -YESSY given 04/30, 05/03 -blood transfusion is a last resort since can contribute to antibody formation which would impact future renal txp -avoid excessive blood draws -should not transfuse except in emergency without further discussion with Kvng and cattle tester as above -Hg 6.3 and transfusing 1 units RBCs on HD today - discussed with Kvng and Dr. Woods #Thrombocytopenia - platelet count is recovering now that SQ heparin stopped -Kvng says his platelets always go down with heparin. He may also have some thrombocytopenia from splenomegaly -platelets 74-->120s, 120 -probably has anti-heparin Ab -no evidence of thrombosis at this time -avoid heparin, ordered PF4 antibody screen/ANAT - pending #Anxiety/Depression - -psychiatrist consulted this admission -Continue Sertraline 25mg po daily -Continue mirtazapine 15 mg HS -ativan 0.5mg BID prn anxiety # epistaxis vs hemoptysis - two weeks ago, consulted pulmonary, sinus CT negative, has not recurred #DVT ppx - -was on SQ heparin 5000 BID, stopped because of thrombocytopenia -if not home soon consider apixaban low dose Probably home very soon, we would like to see bone marrow biopsy result. Planned to call pathology today but ran out of time. Admission and Anticipated Discharge Date Admission Date: April 20, 2025 Subjective Fito definitely feels much better than last week. Some lightheadedness and some facial swelling since HD Monday Headaches much improved. Had brief episode of stabbing LUQ pains overnight - he's had these before in abdomen as well as arms and legs over long timeframe Physical Exam 2 Physical Exam: Last 24h vitals reviewed GEN: sitting up on EOB, coloring in notebook, looks much better HEENT: pupils equal, sclerae anicteric, moist MM, some facial edema RESP: normal WOB ctab no rrw - remains clear CV: tunneled HD line R upper chest ABD: nd : no conley SKIN: warm and dry, no generalized rashes EXT: LE edema resolved NEURO: AOx person, place, and situation. Face symmetric, speech normal, moves 4 ext spontaneously and equally Results & Data Results & Data Vital Signs (Past 12 Hours) Vital Signs Temp Pulse Pulse Pulse Resp BP BP 05/06/25 19:34 36.6 C 84 18 05/06/25 16:43 36.6 C 91 H 20 141/78 H 05/06/25 16:00 88 05/06/25 13:10 36.8 C 88 05/06/25 13:10 36.8 C 88 22 176/102 H 05/06/25 13:03 36.7 C 90 22 181/91 H 05/06/25 13:00 87 176/107 H 05/06/25 12:48 36.7 C 92 H 22 180/104 H 05/06/25 12:30 89 177/104 H 05/06/25 12:28 36.8 C 91 H 22 180/99 H 05/06/25 12:00 88 185/106 H 05/06/25 11:47 36.8 C 87 22 174/103 H 05/06/25 11:32 36.8 C 91 H 22 176/89 H 05/06/25 11:30 89 177/99 H 05/06/25 11:13 36.7 C 88 21 172/89 H 05/06/25 11:00 90 169/81 H 05/06/25 10:30 92 H 164/89 H 05/06/25 10:00 91 H 146/72 H 05/06/25 09:30 92 H 143/70 H 05/06/25 09:00 93 H 164/89 H 05/06/25 08:56 97 H 160/90 H 05/06/25 08:51 36.5 C 97 H 05/06/25 08:01 36.4 C L 89 21 152/78 H BP Pulse Ox O2 Del Method 05/06/25 19:34 166/94 H 95 Room Air 05/06/25 16:43 96 Room Air 05/06/25 16:00 05/06/25 13:10 176/102 H 05/06/25 13:10 99 05/06/25 13:03 99 05/06/25 13:00 05/06/25 12:48 99 05/06/25 12:30 05/06/25 12:28 99 05/06/25 12:00 05/06/25 11:47 99 05/06/25 11:32 99 05/06/25 11:30 05/06/25 11:13 99 05/06/25 11:00 05/06/25 10:30 05/06/25 10:00 05/06/25 09:30 05/06/25 09:00 05/06/25 08:56 05/06/25 08:51 05/06/25 08:01 97 Room Air Laboratory Results 05/06/25 09:49 05/06/25 05:32 PG Care Time/CCT Total # of Minutes Spent Total Time Spent with Patient: Total time spent is greater than 50% in coordination of care (as documented) at patient's floor/unit and/or counseling patient: Coding Level of Care Code 81337 SUB INP/OBS CARE MIN Diagnoses Seizure R56.9 PRES (posterior reversible encephalopathy syndrome) I67.83 ESRD on hemodialysis N18.6; Z99.2 Acute intractable headache, unspecified headache type R51.9 Headache type: unspecified Headache chronicity pattern: acute headache Severe uncontrolled hypertension I10 Pancytopenia D61.818 (4) Intractable headache Headache type: unspecified Headache chronicity pattern: acute headache Qualified Code(s): R51.9 - Headache, unspecified
[2025-05-07 07:05] LABS: Hematocrit (blood only) 22.8 % (42.0-52.0); Hemoglobin 8.0 g/dl (14.0-18.0); Mean Corpuscular Hemoglobin 29.9 pg (25.0-34.0); Mean Corpuscular Volume 85.1 fL (80.0-100.0); Platelet Count 125 K/uL (130-400); RDW Standard Deviation 45.0 fL (36.4-46.3); Red Blood Count 2.68 M/uL (4.70-6.10); White Blood Count 4.93 K/ul (4.8-10.8)
[2025-05-07 07:28] LABS: Anion Gap 10.0 (3-11); Blood Urea Nitrogen 64.0 mg/dl (6-23); Calcium 9.2 mg/dl (8.6-10.3); Carbon Dioxide 26.0 mmol/L (21-32); Chloride 103.0 mmol/L (98-107); Creatinine Clr Calc Pharmacy 14.0 ml/min; Glucose 96.0 mg/dl (70-99(Fasting)); Potassium 4.7 mmol/L (3.5-5.1); Sodium 139.0 mmol/L (136-145)
--- NOTE | 2025-05-07 10:06 | Nephrology Progress Note ---
Date of Service May 07, 2025 Assessment & Plan (1) End stage renal disease: (2) Hypertensive emergency: (3) Headache: (4) Hyperkalemia: (5) Nausea & vomiting: (6) Seizure: Plan 20-year-old male with end-stage kidney disease and hypertensive urgency, secondary to primary FSGS, started on dialysis. Admitted to the hospital with Seizure, headache and hypertensive emergency. w/u has been unremarkable. Blood pressure has been improving. Electrolyte acceptable. Hemoglobin 8.0, adequate iron store. BM Bx pending -- HD tomorrow. -- continue torsemide 40 mg twice a day for now, if UO remains low, may consider stopping in future, low sodium diet -- ok to continue on Remeron 15 mg qhs for sleep -- continue labetalol 400 mg twice a day -- Continue on amlodipine, clonidine 0.2 mg tid, Minoxidil 10 mg bid --OK to use NSAID prn for headache --left arm nephrology precaution Admission and Anticipated Discharge Date Admission Date: April 20, 2025 Dimas Payton was seen and evaluated this morning. Blood pressure slightly improved. Overall he reports feeling much better. Has been tolerating high UF during last hemodialysis treatments with improvement in volume status. Hemoglobin improved to 8.0, bone marrow biopsy results still pending. Review of Systems Review of Systems: All systems reviewed & are unremarkable except as noted in Subjective Physical Exam Constitutional: WD/WN, vitals as above Eyes: + anicteric sclerae Respiratory: no respiratory distress Auscultation: lungs clear to auscultation bilaterally Cardiovascular: Rate/Rhythm: regular rate and regular rhythm Heart Sounds: normal S1 and normal S2 Extremities: + vascular access device (Rt IJ TDC); no edema Musculoskeletal: Extremities: extremities normal to inspection Skin: no rashes, warm and dry Neurologic: no focal motor deficits Psychiatric: Orientation: alert and oriented x 3 Affect: euthymic affect Results & Data Vital Signs (Past 12 Hours) Vital Signs Temp Pulse Pulse Resp BP Pulse Ox O2 Del Method 05/07/25 08:02 36.7 C 91 H 17 163/76 H 96 Room Air 05/07/25 07:21 82 05/07/25 02:33 36.6 C 86 18 147/82 H 94 Room Air 05/06/25 22:46 36.6 C 93 H 18 152/89 H 95 Room Air PG Care Time/CCT Total # of Minutes Spent Total Time Spent with Patient: Total time spent is greater than 50% in coordination of care (as documented) at patient's floor/unit and/or counseling patient: Coding Level of Care Code 16824 SUB INP/OBS CARE 2/35MIN Diagnoses End stage renal disease N18.6 Hypertensive emergency I16.1 Other headache syndrome G44.89 Headache type: other headache syndrome Hyperkalemia E87.5 Nausea & vomiting R11.2 Seizure R56.9 (3) Headache Headache type: other headache syndrome Qualified Code(s): G44.89 - Other headache syndrome
[2025-05-07] MEDS: ACETAMINOPHEN 325 MG TAB PO PRN (11:27)
--- NOTE | 2025-05-07 12:59 | Hospitalist Progress Note ---
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 MRI brain this admission with findings c/w PRES. He had a seizure during a prior admission in early March as well thought 2nd to PRES as MRI brain during that admission also c/w PRES. #PRES with seizures - -improved -MRI brain x 2 (early March, then this admission) c/w PRES -Triggers of PRES - HTN; ESRD/CKD -no evidence of any autoimmune disease (negative NHUNG, sed rate/crp normal, prior ANCAs negative, etc) -BP control was extremely difficult during this admission - see below -continue keppra 1gm daily for seizure prophylaxis; give after HD sessions -now also on gabapentin for headaches which will provide some seizure prophylaxis as well -will need keppra for at least 3 months -EEG negative for seizure focus -amyloid light chains negative -PRES was the cause of his visual complaints, ataxia, vertigo, severe headaches, etc. -spoke with neurology at [facility] as well as [facility] earlier in the admission -[facility] advised systolic BP goal to be <140 -they also recommended consideration of gabapentin or lyrica or similar for headache prophylaxis; gabapentin 100mg BID added - tolerated this; titrated to 200mg BID and also tolerating such #Severe uncontrolled hypertension - -finally improved; appreciate nephrology assistance -secondary HTN work-up was negative -CTA renal arteries negative for FLORA -renin/mynor levels returned normal; no hyper-mynor state -plasma metanephrines negative -TSH not c/w hyperthyroidism -overnight oximetry study checked and was very normal making AIMEE highly unlikely -current anti-hypertensive med regimen: -minoxidil 10mg BID -Labetalol 400mg TID -Amlodipine 10mg po daily -Torsemide 40mg po BID -clonidine 0.2mg TID; consider changing to catapres patch for easier administration -losartan d/c earlier in the admission due to hyperkalemia and lack of efficacy -spironolactone d/c earlier in the admission due to hyperkalemia and lack of efficacy -has not required prn labetalol IV since 05/02/25 -could the patient ultimately require nephrectomy for refractory/recalcitrant HTN - especially given the severe PRES?? -to date this has not been pursued # epistaxis vs hemoptysis - -had such earlier in the admission -has not recurred in 10+ days #Intractable headache - -2nd to PRES/uncontrolled HTN -headaches significantly improve and, when he does have one, very mild (headaches were severe earlier in the admission) -imaging w/o ICH -MRV head negative for dural thrombosis -no evidence of meningitis at any point while hospitalized -cont gabapentin 200mg BID as suggested by [facility] for headache prophylaxis -cont tylenol prn #ESRD secondary to FSGS on HD - -Continue Phoslo -HD 3 days/week -Nephrology HD management much appreciated #Hepatosplenomegaly and pancytopenia - -etiology? -viral? tick-borne infection? -metabolic disorder? -other? -in light of severe LVH/cardiomegaly (which could be 2nd to severely uncontrolled HTN) - infiltrative disease such as amyloid? -kappa/lambda light chains returned negative however, essentially ruling amyloidosis out -recent ferritin and transferrin saturation not elevated, thus hemochromatosis unlikely -sarcoidosis unlikely - OC level normal -EBV panel with possible mono (later stage) but EBV PCR NEGATIVE -CMV titers negative -parvovirus titers negative -anaplasmosis/babesia DNA both negative -respiratory BioFire negative -NHUNG negative -B12/folate/TSH wnl -peripheral smear by pathology -- no signs of hemolysis, TTP, or other abnormalities -flow cytometry normal -s/p bone marrow biopsy - results still pending -did require 2 units of PRBCs on 05/06/25 for hemoglobin of 6.3 -H/H stable today -CBC in am #Anxiety/Depression - -Continue Sertraline 25mg po daily -Continue mirtazapine 15 mg HS -patient requested psych eval -- behavioral health liasion and psychiatry consultations appreciated -ativan 0.5mg BID prn anxiety -appreciate psych assistance -tolerating above meds #constipation - -cont miralax #hyperkalemia - -remains on once daily Lokelma with stable K level since starting such -BMP am #DVT ppx - -resumed (cautiousl) heparin 5000 BID about 10 days ago due to high risk of VTE -no evidence of any bleeding issues from the heparin -platelets were thought 2nd to HIT thus heparin then stopped, and HIT ab/AANT sent - both pending unfortunately patient was declined for transfer by [facility] and [facility] on 04/24/25 attempted to Tx patient to [facility] on 04/28 - again unsuccessful accepted at [facility] on 04/29 however, on 04/30, [facility] called and no beds thus transfer canceled hopefully getting closer to going home needs more ambulation and therapy Admission and Anticipated Discharge Date Admission Date: April 20, 2025 Subjective patient overall feeling much better headaches have improved; are minimal today does have some mild dizziness today - sounds like vertigo as it is brought on by head movements ("I feel like my eyes are lagging behind moving my head") no double vision still a little visual impairment/visual disturbance but much improved eating well recent edema issues improved ambulating better orthostatics checked by nursing - negative Review of Systems Review of Systems: gen - no fevers cv - no cp pulm - no dyspnea GI - no pain or N/V Physical Exam Physical Exam: gen - lying in bed, best he has looked the entire hospitalization eyes - nystagmus - horizontal - largely resolved HENT - MMM neck - no JVD heart - RRR, s1 s2, no murmur lungs - CTA b/l, no rales abd - soft, ND, BS+; NT ext - no edema, pulses 2+ b/l Results & Data Results & Data Vital Signs (Past 12 Hours) Vital Signs Temp Pulse Pulse Resp BP Pulse Ox O2 Del Method 05/07/25 11:31 36.6 C 86 17 138/73 96 Room Air 05/07/25 08:02 36.7 C 91 H 17 163/76 H 96 Room Air 05/07/25 07:21 82 05/07/25 02:33 36.6 C 86 18 147/82 H 94 Room Air Laboratory Results Laboratory Results - last 24 hr 05/07/25 06:30 WBC 4.93 RBC 2.68 L Hgb 8.0 L Hct 22.8 L MCV 85.1 MCH 29.9 MCHC 35.1 RDW Std Deviation 45.0 RDW Coeff of Juliana 14.6 H Plt Count 125 L MPV 10.5 Sodium 139 Potassium 4.7 Chloride 103 Carbon Dioxide 26 Anion Gap 10 BUN 64 H D Creatinine 9.52 H* D Est Cr Clr Drug Dosing 14.0 eGFR 7.40 BUN/Creatinine Ratio 6.7 L Glucose 96 Calcium 9.2 PG Care Time/CCT Total # of Minutes Spent Total Time Spent with Patient: Total time spent is greater than 50% in coordination of care (as documented) at patient's floor/unit and/or counseling patient: Coding Level of Care Code 27669 SUB INP/OBS CARE 235MIN Diagnoses Seizure R56.9 PRES (posterior reversible encephalopathy syndrome) I67.83 ESRD on hemodialysis N18.6; Z99.2 Acute intractable headache, unspecified headache type R51.9 Headache chronicity pattern: acute headache Headache type: unspecified Severe uncontrolled hypertension I10 Constipation K59.00 Thrombocytopenia D69.6 Hyperkalemia E87.5 FSGS (focal segmental glomerulosclerosis) N05.1 Hx of deep venous thrombosis Z86.718 Serologic abnormality R89.4 LUQ pain R10.12 Pancytopenia D61.818 (4) Intractable headache Headache chronicity pattern: acute headache Headache type: unspecified Qualified Code(s): R51.9 - Headache, unspecified
[2025-05-07] MEDS: MECLIZINE HCL 25 MG TAB PO STA (13:06)
[2025-05-08 07:58] LABS: Hematocrit (blood only) 23.6 % (42.0-52.0); Hemoglobin 8.1 g/dl (14.0-18.0); Mean Corpuscular Hemoglobin 29.3 pg (25.0-34.0); Mean Corpuscular Volume 85.5 fL (80.0-100.0); Platelet Count 123 K/uL (130-400); RDW Standard Deviation 44.2 fL (36.4-46.3); Red Blood Count 2.76 M/uL (4.70-6.10); White Blood Count 5.13 K/ul (4.8-10.8)
[2025-05-08 08:34] LABS: Anion Gap 15.0 (3-11); Blood Urea Nitrogen 110.0 mg/dl (6-23); Calcium 9.5 mg/dl (8.6-10.3); Carbon Dioxide 21.0 mmol/L (21-32); Chloride 102.0 mmol/L (98-107); Creatinine Clr Calc Pharmacy 10.8 ml/min; Glucose 90.0 mg/dl (70-99(Fasting)); Potassium 5.4 mmol/L (3.5-5.1); Sodium 138.0 mmol/L (136-145)
[2025-05-08] MEDS: EPOETIN ALFA 40,000 UNITS/ML VIAL IV ONE (10:25)
[2025-05-08] MEDS: IRON SUCROSE 100 MG in SYRINGE 0 ML IV ONE (11:10)
--- NOTE | 2025-05-08 12:40 | Nephrology Progress Note ---
Date of Service May 08, 2025 Assessment & Plan (1) End stage renal disease: Plan: Orders for HD entered into the EHR and reviewed with community service officer. Fito is tolerating treatment well. Continue TTS schedule. Maintain daily fluid restriction 1.2 L. Low sodium, low potassium diet. Outpatient HD Rx: TTS 3.75 Fx CorAL80 BFR 400/QD800 2K 2Ca 1Mg Na140 HCO3 40. Medications appropriate for IHD. (2) Hypertensive emergency: Plan: Improvement noted. Increase minoxidil to 20 mg twice daily. Continue torsemide to encourage urine output. Remains on amlodipine 10 mg daily, clonidine 0.2 TID, labetalol 400 mg TID (HR ~80-90 bpm). Ongoing discussion for possible renal denervation. Accelerated hypertension complicated by PRES and significant endothelial inflammation. Fito has requested outside consultation with a specialist in BP management after discharge. (3) Anemia: Plan: Hematology following. Bone marrow pending. Hepatosplenomegaly. No obvious intravascular hemolysis - no schistocytes on peripheral smear. Hgb dropped this AM. 2 units PRBC transfused 05/06. Epogen 71836 units + venofer 100 mg provded with HD today. (4) LVH (left ventricular hypertrophy): Admission and Anticipated Discharge Date Admission Date: April 20, 2025 Subjective No acute events overnight. Fito continues to experience facial fullness between dialysis treatments. He describes mild headache. He was seen and evaluated during HD today and states that he overall feels well. He hopes to be discharged home soon. Some recent facial plethora noted. No lightheadedness or dizziness. Tolerating HD well. Review of Systems Review of Systems: All systems reviewed & are unremarkable except as noted in HPI & below Physical Exam Constitutional: well developed; no acute distress Eyes: + anicteric sclerae ENMT: external ear and nose normal, oropharynx normal Neck: normal visual inspection Respiratory: normal respiratory effort; no respiratory distress Auscultation: lungs clear to auscultation bilaterally Cardiovascular: Rate/Rhythm: regular rate and + tachycardic Heart Sounds: normal S1 and normal S2 Extremities: + edema Musculoskeletal: Extremities: no cyanosis and no clubbing Skin: no lesions and no jaundice Neurologic: Motor/Sensory: no tremor and no asterixis Psychiatric: Orientation: alert and oriented x 3 Results & Data Vital Signs (Past 12 Hours) Vital Signs Temp Pulse Pulse Pulse Resp BP BP 05/08/25 12:15 81 171/113 H 05/08/25 12:00 80 176/107 H 05/08/25 11:45 81 170/96 H 05/08/25 11:30 84 166/86 H 05/08/25 11:15 81 162/82 H 05/08/25 11:00 82 154/80 H 05/08/25 10:45 85 156/87 H 05/08/25 10:30 85 154/77 H 05/08/25 10:15 83 158/89 H 05/08/25 10:11 82 155/79 H 05/08/25 10:00 36.4 C L 80 05/08/25 07:08 79 05/08/25 07:01 36.6 C 88 16 151/85 H 05/08/25 06:15 05/08/25 02:20 36.4 C L 86 16 158/95 H BP Pulse Ox O2 Del Method 05/08/25 12:15 05/08/25 12:00 05/08/25 11:45 05/08/25 11:30 05/08/25 11:15 05/08/25 11:00 05/08/25 10:45 05/08/25 10:30 05/08/25 10:15 05/08/25 10:11 05/08/25 10:00 05/08/25 07:08 05/08/25 07:01 96 Room Air 05/08/25 06:15 153/92 H 05/08/25 02:20 95 Room Air Laboratory Results Laboratory Results - last 24 hr 04/29/25 05/08/25 09:15 07:28 WBC 5.13 RBC 2.76 L Hgb 8.1 L Hct 23.6 L MCV 85.5 MCH 29.3 MCHC 34.3 RDW Std Deviation 44.2 RDW Coeff of Juliana 14.7 H Plt Count 123 L MPV 10.6 Sodium 138 Potassium 5.4 H Chloride 102 Carbon Dioxide 21 Anion Gap 15 H BUN 110 H D Creatinine 12.29 H* D Est Cr Clr Drug Dosing 10.8 eGFR 5.44 BUN/Creatinine Ratio 9.0 L Glucose 90 Calcium 9.5 BM Chromosome Analysis See Comment Misc Pathology Test Pending PG Care Time/CCT Total # of Minutes Spent Total Time Spent with Patient: Total time spent is greater than 50% in coordination of care (as documented) at patient's floor/unit and/or counseling patient: Coding Level of Care Code 98098 SUB INP/OBS CARE 350MIN Diagnoses End stage renal disease N18.6 Hypertensive emergency I16.1 Anemia D64.9 LVH (left ventricular hypertrophy) I51.7
[2025-05-08] MEDS: levETIRAcetam 500 MG TAB PO SCH (15:06)
--- NOTE | 2025-05-08 16:48 | Ultrasound Report ---
Clinical History: Rule out DVT. Technique: Doppler sonography was performed of the bilateral arm veins Findings: The visualized bilateral jugular, subclavian, and axillary all appear patent with normal anechoic lumens and full compressibility. Expected Doppler waveforms were noted. No definite soft tissue mass or fluid collection is seen. Impression: No evidence of deep venous thrombosis Electronically signed by Harmeet Tsai 05-08-2025 4:44 PM
--- NOTE | 2025-05-08 20:21 | Hospitalist Progress Note ---
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 MRI brain this admission with findings c/w PRES. He had a seizure during a prior admission in early March as well thought 2nd to PRES as MRI brain during that admission also c/w PRES. #PRES with seizures - -continues to improve, although had headache today likely because BPs elevated much of the day -also with mild ataxia - likely from resolving cerebellar involvement from PRES -MRI brain x 2 (early March, then this admission) c/w PRES -Triggers of PRES - HTN; ESRD/CKD -no evidence of any autoimmune disease (negative NHUNG, sed rate/crp normal, prior ANCAs negative, etc) -BP control was extremely difficult during this admission - see below -continue keppra 1gm daily for seizure prophylaxis; give after HD sessions -now also on gabapentin for headaches which will provide some seizure prophylaxis as well -will need keppra for at least 3 months -EEG negative for seizure focus -PRES was/has been the cause of his visual complaints, ataxia, vertigo, severe headaches, etc. -spoke with neurology at [facility] as well as [facility] earlier in the admission -[facility] advised systolic BP goal to be <140 -they also recommended consideration of gabapentin or lyrica or similar for headache prophylaxis; gabapentin 100mg BID added - tolerated this; titrated to 200mg BID and also tolerating such #Severe uncontrolled hypertension - -finally improved; appreciate nephrology assistance - their efforts are much appreciated in this very difficult case - -secondary HTN work-up was negative -CTA renal arteries negative for FLORA -renin/mynor levels returned normal; no hyper-mynor state -plasma metanephrines negative -TSH not c/w hyperthyroidism -overnight oximetry study - very normal making AIMEE highly unlikely -current anti-hypertensive med regimen: -minoxidil 10mg BID, now 20mg BID -Labetalol 400mg TID -Amlodipine 10mg po daily -Torsemide 40mg po BID -clonidine 0.2mg TID; consider changing to catapres patch for easier administration; plan to switch tomorrow AM, 05/09 -losartan d/c earlier in the admission due to hyperkalemia and lack of efficacy -spironolactone d/c earlier in the admission due to hyperkalemia and lack of efficacy -has not required prn labetalol IV since 05/02/25 -could the patient ultimately require nephrectomy for refractory/recalcitrant HTN - especially given the severe PRES?? -to date this has not been pursued -defer any decision regarding this to nephrology # epistaxis vs hemoptysis - -had such earlier in the admission -has not recurred in 10+ days #Intractable headache - -2nd to PRES/uncontrolled HTN -headaches were severe earlier in the admission -headaches significantly improved since admission and, when he does have one, they are very mild like today -imaging w/o ICH -MRV head negative for dural thrombosis -no evidence of meningitis at any point while hospitalized -cont gabapentin 200mg BID as suggested by [facility] for headache prophylaxis -cont tylenol prn -cont pain meds prn for refractory/severe headache #ESRD secondary to FSGS on HD - -schedule is //Monday -s/p HD today - fortunately did not have much in the way of PRES symptoms during HD -Nephrology HD management much appreciated #Hepatosplenomegaly and pancytopenia - -etiology? -viral? tick-borne infection? -metabolic disorder? -other? -in light of severe LVH/cardiomegaly (which could be 2nd to severely uncontrolled HTN) - infiltrative disease such as amyloid? -kappa/lambda light chains returned negative however, essentially ruling amyloidosis out -recent ferritin and transferrin saturation not elevated, thus hemochromatosis unlikely -sarcoidosis unlikely - OC level normal -EBV panel with possible mono (later stage) but EBV PCR NEGATIVE -CMV titers negative -parvovirus titers negative -anaplasmosis/babesia DNA both negative -respiratory BioFire negative -NHUNG negative -B12/folate/TSH wnl -peripheral smear by pathology -- no signs of hemolysis, TTP, or other abnormalities -flow cytometry normal -s/p bone marrow biopsy - results still pending -did require 2 units of PRBCs on 05/06/25 for hemoglobin of 6.3 -H/H again stable today -defer iron management, Epogen, etc to nephrology #Anxiety/Depression - -Continue Sertraline 25mg po daily -Continue mirtazapine 15 mg HS -patient requested psych eval -- behavioral health liasion and psychiatry consultations appreciated -ativan 0.5mg BID prn anxiety -appreciate psych assistance -tolerating above meds #constipation - -improved -cont miralax #hyperkalemia - -remains on once daily Lokelma with relatively stable K levels since starting such -low K diet -torsemide -BMP am #DVT ppx - -resumed (cautiousl) heparin 5000 BID about 10 days ago due to high risk of VTE -no evidence of any bleeding issues from the heparin -platelets were thought 2nd to HIT thus heparin then stopped, and HIT ab/ANAT sent - both still pending #facial edema - -dopplers of arms negative -uncertain etiology -most recent TSH was high; will repeat TSH in am and if still high (and if FT4 low) consider replacement unfortunately patient was declined for transfer by [facility] and [facility] on 04/24/25 attempted to Tx patient to [facility] on 04/28 - again unsuccessful accepted at [facility] on 04/29 however, on 04/30, [facility] called and no beds thus transfer canceled fortunately he has improved significantly since those phone calls were made hopefully getting closer to going home - next 1-2 days if BPs are satisfactory? needs more ambulation and therapy in light of intermittent ataxia Admission and Anticipated Discharge Date Admission Date: April 20, 2025 Subjective saw Kvng post-HD about 3.5 Liters removed BPs were very high during the HD session no diplopia or visual disturbance today, but post-HD developed a frontal headache requests pain meds for such he also noted earlier today some mild ataxia (left leg in particular) he is hoping to get home soon tele overnight wnl Review of Systems Review of Systems: cv - no chest pain; reports facial edema that was present even prior to initiating dialysis earlier in the spring; edema does not fully resolve with HD sessions; no LE edema pulm - no dyspnea or CHAN GI - no abd pain or N/V Physical Exam Physical Exam: gen - lying in bed, NAD eyes - nystagmus resolved, EOMI; mild horacio-orbital edema HENT - MMM neck - no JVD heart - RRR, s1 s2, 1/6 JATIN LSB lungs - CTA b/l, no rales abd - soft, ND, BS+; NT; spleen tip palpable ext - no edema, pulses 2+ b/l neuro - minimal ataxia finger/nose/finger maneuver left hand; minimal ataxia heel-mirza maneuver on left; strength 5/5 x 4 exts; no facial droop; no pronator drift Results & Data Results & Data Vital Signs (Past 12 Hours) Vital Signs Temp Pulse Pulse Pulse Resp BP BP 05/08/25 19:34 36.7 C 87 18 164/89 H 05/08/25 15:30 86 05/08/25 14:37 36.7 C 93 H 18 05/08/25 14:31 36.4 C L 85 05/08/25 14:11 85 191/118 H 05/08/25 14:00 85 193/115 H 05/08/25 13:45 84 193/111 H 05/08/25 13:30 82 183/109 H 05/08/25 13:15 83 186/114 H 05/08/25 13:00 83 186/114 H 05/08/25 12:45 83 184/111 H 05/08/25 12:30 81 170/109 H 05/08/25 12:15 81 171/113 H 05/08/25 12:00 80 176/107 H 05/08/25 11:45 81 170/96 H 05/08/25 11:30 84 166/86 H 05/08/25 11:15 81 162/82 H 05/08/25 11:00 82 154/80 H 05/08/25 10:45 85 156/87 H 05/08/25 10:30 85 154/77 H 05/08/25 10:15 83 158/89 H 05/08/25 10:11 82 155/79 H 05/08/25 10:00 36.4 C L 80 BP Pulse Ox O2 Del Method 05/08/25 19:34 98 Room Air 05/08/25 15:30 05/08/25 14:37 179/95 H 95 Room Air 05/08/25 14:31 191/118 H 05/08/25 14:11 05/08/25 14:00 05/08/25 13:45 05/08/25 13:30 05/08/25 13:15 05/08/25 13:00 05/08/25 12:45 05/08/25 12:30 05/08/25 12:15 05/08/25 12:00 05/08/25 11:45 05/08/25 11:30 05/08/25 11:15 05/08/25 11:00 05/08/25 10:45 05/08/25 10:30 05/08/25 10:15 05/08/25 10:11 05/08/25 10:00 Laboratory Results Laboratory Results - last 24 hr 04/29/25 05/08/25 09:15 07:28 WBC 5.13 RBC 2.76 L Hgb 8.1 L Hct 23.6 L MCV 85.5 MCH 29.3 MCHC 34.3 RDW Std Deviation 44.2 RDW Coeff of Juliana 14.7 H Plt Count 123 L MPV 10.6 Sodium 138 Potassium 5.4 H Chloride 102 Carbon Dioxide 21 Anion Gap 15 H BUN 110 H D Creatinine 12.29 H* D Est Cr Clr Drug Dosing 10.8 eGFR 5.44 BUN/Creatinine Ratio 9.0 L Glucose 90 Calcium 9.5 BM Chromosome Analysis See Comment Misc Pathology Test Pending PG Care Time/CCT Total # of Minutes Spent Total Time Spent with Patient: Total time spent is greater than 50% in coordination of care (as documented) at patient's floor/unit and/or counseling patient: Coding Level of Care Code 17377 SUB INP/OBS CARE 2/35MIN Diagnoses Severe uncontrolled hypertension I10 PRES (posterior reversible encephalopathy syndrome) I67.83 Pancytopenia D61.818 Seizure R56.9 ESRD on hemodialysis N18.6; Z99.2 Acute intractable headache, unspecified headache type R51.9 Headache chronicity pattern: acute headache Headache type: unspecified Constipation K59.00 Thrombocytopenia D69.6 Hyperkalemia E87.5 FSGS (focal segmental glomerulosclerosis) N05.1 Hx of deep venous thrombosis Z86.718 Facial edema R60.0 (6) Intractable headache Headache chronicity pattern: acute headache Headache type: unspecified Qualified Code(s): R51.9 - Headache, unspecified
[2025-05-09 09:01] LABS: Anion Gap 13.0 (3-11); Blood Urea Nitrogen 83.0 mg/dl (6-23); Calcium 9.4 mg/dl (8.6-10.3); Carbon Dioxide 24.0 mmol/L (21-32); Chloride 102.0 mmol/L (98-107); Creatinine Clr Calc Pharmacy 13.5 ml/min; Glucose 114.0 mg/dl (70-99(Fasting)); Potassium 5.0 mmol/L (3.5-5.1); Sodium 139.0 mmol/L (136-145)
[2025-05-09 09:06] LABS: Thyroid Stimulating Hormone 4.149 uIu/ml (0.300-4.500)
[2025-05-09 11:28] VITALS: RESP 18; TEMP 98.1
--- NOTE | 2025-05-09 13:39 | Nephrology Progress Note ---
Date of Service May 09, 2025 Assessment & Plan (1) End stage renal disease: Plan: Fito completed HD yesterday with adequate UF/clearance. Maintain daily fluid restriction 1.2 L. Low sodium, low potassium diet. Outpatient HD Rx: TTS 3.75 Fx [id number] BFR 400/QD800 2K 2Ca 1Mg Na140 HCO3 40. Medications appropriate for IHD. Discussed potential discharge today with Dr. Krishnamurthy and Fito. Fito would like to go home. BP has been reasonable and close outpatient follow up can be arranged. [facility] confirmed that he can resume his scheduled outpatient treatment tomorrow. Importance of adherence with medications and diet stressed. Continue Lokelma 10 grams daily. (2) Hypertensive emergency: Plan: Continue minoxidil to 20 mg twice daily. Remains on amlodipine 10 mg daily, c lonidine 0.2 mg patch, labetalol 400 mg TID (HR ~80-90 bpm). Continue torsemide to encourage urine output. Referral has been made for outpatient evaluation at [facility] for renal denervation. Accelerated hypertension complicated by PRES and significant endothelial inflammation. Consultation with a specialist in BP management after discharge will be arranged. (3) Anemia: Plan: Hematology following. Bone marrow pending. Hepatosplenomegaly. No obvious intravascular hemolysis - no schistocytes on peripheral smear. Hgb dropped this AM. 2 units PRBC transfused 05/06. Epogen 47480 units + venofer 100 mg provided with HD yesterday. (4) LVH (left ventricular hypertrophy): Admission and Anticipated Discharge Date Admission Date: April 20, 2025 Subjective No acute events overnight. Fito feels well this AM. He would like to go home today. BP has been reasonably controlled. He feels significantly better. Mild headache with HD reported yesterday. This improved after a short rest. He oth erwise tolerated treatment well. Adequate clearance. He denies fluid retention or edema. He is breathing comfortably. Review of Systems Review of Systems: All systems reviewed & are unremarkable except as noted in HPI & below Physical Exam Constitutional: well developed; no acute distress Eyes: + anicteric sclerae ENMT: external ear and nose normal, oropharynx normal Neck: normal visual inspection Respiratory: normal respiratory effort; no respiratory distress Auscultation: lungs clear to auscultation bilaterally Cardiovascular: Rate/Rhythm: regular rate Heart Sounds: normal S1 and normal S2 Extremities: + edema Gastrointestinal (Abdomen): Inspection/Auscultation: abdomen not distended Percussion/Palpation: abdomen soft and + hepatosplenomegaly; no guarding and abdomen not rigid Musculoskeletal: Extremities: no cyanosis and no clubbing Skin: no lesions and no jaundice Neurologic: Motor/Sensory: no tremor and no asterixis Psychiatric: Orientation: alert and oriented x 3 Results & Data Vital Signs (Past 12 Hours) Vital Signs Temp Pulse Pulse Resp BP BP Pulse Ox 05/09/25 11:26 36.7 C 82 18 153/86 H 98 05/09/25 07:58 36.8 C 89 16 170/87 H 97 05/09/25 05:59 94 H 05/09/25 02:40 36.6 C 92 H 16 163/90 H 94 O2 Del Method 05/09/25 11:26 Room Air 05/09/25 07:58 Room Air 05/09/25 05:59 05/09/25 02:40 Room Air Laboratory Results Laboratory Results - last 24 hr 05/09/25 07:48 Sodium 139 Potassium 5.0 Chloride 102 Carbon Dioxide 24 Anion Gap 13 H BUN 83 H D Creatinine 9.89 H* D Est Cr Clr Drug Dosing 13.5 eGFR 7.07 BUN/Creatinine Ratio 8.4 L Glucose 114 H Calcium 9.4 TSH 4.149 PG Care Time/CCT Total # of Minutes Spent Total Time Spent with Patient: Total time spent is greater than 50% in coordination of care (as documented) at patient's floor/unit and/or counseling patient: Coding Level of Care Code 01197 SUB INP/OBS CARE 3/50MIN Diagnoses End stage renal disease N18.6 Hypertensive emergency I16.1 Anemia D64.9 LVH (left ventricular hypertrophy) I51.7
[2025-05-09] MEDS: CHECK CLONIDINE PATCH PLACEMENT SCH (16:47)
--- NOTE | 2025-05-09 19:11 | Discharge Summary ---
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 MRI brain this admission with findings c/w PRES. He had a seizure during a prior admission in early March as well thought 2nd to PRES as MRI brain during that admission also c/w PRES. #PRES (Posterior Reversible Encephalopathy Syndrome) with seizures - -MRI brain x 2 (early March, then this admission) c/w PRES -Probable triggers of PRES in Mr Ramos - HTN; ESRD/CKD -no evidence of any autoimmune disease (negative NHUNG, sed rate/crp normal, prior ANCAs negative, etc) -BP control was extremely difficult during this admission - see below -placed on IV Keppra early in admission for seizure prophylaxis - 1000mg daily; give after HD sessions on HD days -now also on gabapentin for headaches which will provide some seizure prophylaxis as well -will need Keppra for at least 3 months -EEG negative for seizure focus -PRES was/has been the cause of his visual complaints (visual disturbances, diplopia), ataxia, vertigo, severe headaches, etc. -discussions had with neurology at [facility] as well as [facility] early in the admission -[facility] advised systolic BP goal to be <140 -they also recommended consideration of gabapentin or lyrica or similar for headache prophylaxis; gabapentin 100mg BID added - he tolerated this; titrated to 200mg BID and also was tolerating such -at discharge he will take: -Keppra 1000mg PO Daily -Gabapentin 200mg PO BID -he has scheduled follow-up with [facility] for his PRES and residual neurological symptoms #Severe uncontrolled hypertension - -Controlling Mr Ramos's blood pressure was exceptionally difficult the entire hospitalization -[facility] and [facility] for his [facility] -due to the severity and refractory nature of his HTN a secondary HTN work-up was completed - -CTA renal arteries negative for FLORA -renin/mynor levels returned normal; no hyper-mynor state -plasma metanephrines negative -TSH not c/w hyperthyroidism -overnight oximetry study - very normal making AIMEE highly unlikely -there were numerous medication additions/subtractions/changes over his protracted hospitalization -multiple times he had additional HD sessions to pull extra volume with the hopes this would help his BP control -- but this did not help his HTN -ultimately his anti-hypertensive med regimen was the following: -minoxidil 20mg BID -Labetalol 400mg TID -Amlodipine 10mg po daily -Torsemide 40mg po BID -catapres patch for 0.3mg qweekly -losartan d/c earlier in the admission due to hyperkalemia and lack of efficacy -spironolactone d/c earlier in the admission due to hyperkalemia and lack of efficacy -had not required prn labetalol IV since 05/02/25 -off/on throughout the patient's stay there was discussion about whether to pursue kidney denervation due to refractory/recalcitrant HTN in the context of his severe PRES -Dr Andriy Woods with [facility] will coordinate a referral to a tertiary care center to explore possible kidney denervation #Intractable headache - -2nd to PRES/uncontrolled HTN -headaches were severe from time of admission until about alf through the hospitalization at which point the headaches improved and became less intense/less frequent -MRI brain consistent with PRES -imaging w/o ICH -MRV head negative for dural thrombosis -no evidence of meningitis at any point while hospitalized -cont Gabapentin 200mg BID for headache prophylaxis -cont tylenol prn #Hepatosplenomegaly and pancytopenia - -enlarged liver & spleen were seen on imaging -pancytopenia started in early March 2025 -etiology? -infectious? viral? tick-borne infection? -metabolic disorder? -primary bone marrow disorder? -in light of severe LVH/cardiomegaly (which could be 2nd to severely uncontrolled HTN) - infiltrative disease such as amyloid was considered -kappa/lambda light chains returned negative however, essentially ruling amyloidosis out -recent ferritin and transferrin saturation were not elevated, thus hemochromatosis unlikely -sarcoidosis unlikely - OC level normal -EBV antibody panel with possible mono (later stage) but EBV PCR returned NEGATIVE -CMV titers negative -parvovirus titers negative -anaplasmosis/babesia DNA both negative -respiratory BioFire negative -NHUNG negative -B12/folate/TSH wnl -peripheral smear by pathology -- no signs of hemolysis, TTP, or other abnormalities -flow cytometry normal -s/p bone marrow biopsy - hypocellular marrow seen, but otherwise no lymphoproliferative disorder identified -did require 2 units of PRBCs on 05/06/25 for hemoglobin of 6.3 -discharge hemoglobin 8.1 -discharge WBC 5.1 -discharge platelet level 123 (lowest level 71) -will need CBC followed carefully in the weeks following discharge for stability -in light of negative bone marrow biopsy hematology felt his hypersplenism was the cause of the pancytopenia #ESRD secondary to FSGS on HD - initiated on HD spring 2024 - -schedule is //Monday -[facility] coordinated his HD management while here -PRES symptoms were often quite severe during his dialysis sessions, especially in the first half of the hospitalization -patient needs AV fistula creation and this is tentatively planned for later in April [address] Ousmane Pacheco, [facility] #hyperkalemia - -Mr Ramos had such off/on throughout the stay -he did not tolerate ARB therapy or spironolactone because of the hyperkalemia -required additional HD sessions as well as once daily Lokelma and low K diet to keep the potassium level within range -again renin/mynor levels returned satisfactory -potassium level was 5 at discharge -low K diet handout given to Mr Ramos at discharge #Anxiety/Depression - -Continue sertraline 25mg po daily -Continue mirtazapine 15 mg HS -patient requested psych eval -- behavioral health nurse and psychiatry consultations performed -ativan 0.5mg BID prn anxiety (only 7 tabs of such given at discharge - patient counseled not to take this long-term) #facial edema - -dopplers of arms negative for DVT -TSH in March was high; repeated TSH in April and returned normal at 4 -etiology? # epistaxis vs hemoptysis - -had such early in the admission -fortunately it did not recur -thought to be due to sinus issues/upper respiratory rather than lower respiratory/true hemoptysis #constipation - -cont miralax #LVH (left ventricular hypertrophy) - -echo with severe LVH -likely due to long-standing uncontrolled HTN -infiltrative disease considered as a cause - amyloid, sarcoid, etc - labs for such were negative, however -see above re: BP control -this will need to be followed carefully over time - early in the stay multiple attempts to transfer Mr Ramos to a tertiary care center due to the complexity of his medical issues were unsuccessful -unfortunately patient was declined for transfer by [facility] and [facility] on 04/24/25 -attempted to transfer patient to [facility] on 04/28 - again unsuccessful -accepted at [facility] on 04/29; however, on 04/30, [facility] called and no beds available thus transfer canceled -fortunately he improved significantly since those phone calls were made and ultimately was able to leave [facility] in satisfactory/stable condition -at discharge his PRES symptoms were controlled and BPs were reasonably controlled -seen by PT prior to discharge home and no further therapy services were recommended Notes For Next Care Provider 1. needs very close f/u with [facility] for his PRES and abnormal brain MRIs 2. Dr Andriy Woods from [facility]phrology in early stages of referring Mr Ramos for consideration of renal denervation 3. AV fistula creation - April 2025 as outpatient Medication Changes From Visit 1. Keppra 1gm daily 2. labetalol 400mg three times daily 3. minoxidil 20mg twice daily 4. gabapentin 200mg twice daily 5. Lokelma 1 packet daily 6. mirtazapine 15mg at bedtime 7. lorazepam 0.5mg every 12 hours as needed for anxiety; SHORT TERM use only 8. nephrocaps vitamin daily 9. sevelamer 800mg TID Admission HPI Per Admitting Provider Kvng Ramos is a 20yo male with history of 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 Patient was recently admitted to [facility] after a new onset seizure. He was briefly managed with Keppra but ultimately thought that seizure secondary to PRES. Patient had HD today but his session was stopped early because he did not feel well. He developed headache, nausea and some non-bloody/non-bilious vomiting. He went home and was sleeping on the couch. His mom heard some movement around 21:00 and found patient to be seizing. She reports that his right arm was flexed up and his left arm was sticking out straight and the patient was convulsing for about 1-2 minutes. The convulsions stopped and patient was post- ictal and confused. In the ER patient had another witnessed seizure. He was given Ativan with resolution. He has no complaints at present. 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 ER Course: Ativan 2mg NSS x 1L Keppra 1700mg Labetalol 10mg IV Morphine 4mg IV Zofran 4mg IV Discharge Exam gen - lying in bed, NAD, best he has looked all admission eyes - nystagmus resolved, EOMI; minimal horacio-orbital edema HENT - MMM neck - no JVD heart - RRR, s1 s2, 1/6 JATIN LSB lungs - CTA b/l, no rales abd - soft, ND, BS+; NT; spleen tip palpable ext - no edema, pulses 2+ b/l neuro - minimal ataxia finger/nose/finger maneuver left hand; minimal ataxia heel-mirza maneuver on left; strength 5/5 x 4 exts; no facial droop; no pronator drift Discharge Plan Discharge Items Patient Disposition: Home - Self-Care Reason For Visit: SEIZURE Discharge Diagnosis: 1. Posterior Reversible Encephalopathy Syndrome ("PRES") 2. Seizures due to #1 above 3. Severely uncontrolled high blood pressure - improving 4. Headaches, balance problems, ocular disturbance (double vision, visual deficits), vertigo - due to #1 - improved 5. Pancytopenia (low white count, red cells, and platelets) - slowly improving; due to #1?; bone marrow biopsy pending 6. Left ventricular hypertrophy - likely due to #3 7. End-stage renal disease on dialysis Monday//Monday Activity: As commented below Activity Comment: no strenuous activities at this time Sexual Activity: Wait until after follow-up appointment Exercise/Sports: Wait until after follow-up appointment Driving/Machine Use: NO DRIVING at this time; NO operating heavy machinery Non-emergency contact: Primary Care Provider, Able Seaman and Neurologist Call non-emergency contact if: you have any medication questions, your symptoms worsen, your pain is not controlled, your pain is unusual for you, your pain is concerning for you and you have a fever Follow-up/Referrals: Andriy Woods DO [Physician] - (please report for outpatient dialysis on 05/10/25 as scheduled ) Andres Pacheco MD [Physician] - 05/21/25 (fistula creation - scheduled at [facility]) Karlo Desai CRNP [Nurse Practitioner] - 05/22/25 8:00 am Harsh Marshall DO [Primary Care Provider] - (1-2 weeks ) Elizabet Stubbs PA-C [Physician [place]] - 05/12/25 10:00 am (neurology appointment for PRES, seizures, headaches, etc.) Diet: Dialysis Renal and Low Potassium (2gm) Fluids: 1500ml (6 cups) Addtl Attending Provider Instructions: Mr Ramos, You were hospitalized due to having 2 seizures. The seizures were likely due to your "PRES" condition. MRI brain this admission again showed evidence of PRES. You were started on Keppra (levetiracetam) for seizure prevention. Your blood pressures were very high when you got admitted on 04/20/25. During your hospital stay your blood pressures were very difficult to control. Your blood pressure medicines were changed numerous times and finally you are now on a regimen that is providing more consistent blood pressure control. [facility] was instrumental in managing your blood pressure. We checked you for various conditions that can make blood pressure hard to control and all of these tests returned normal or negative. Specifically, your renal arteries were normal, your thyroid levels were normal, your aldosterone level was normal, overnight oximetry study showed your oxygen levels during sleep were normal, and a blood test for something called metanephrines also returned normal. All of your symptoms - double vision, dizziness/vertigo, visual disturbance, headaches, etc - were due to the PRES condition. As your blood pressures improved your PRES symptoms also improved. Moving forward it will be pastrana to control your blood pressures so that the PRES condition does not recur. There has been discussion about you undergoing a procedure called "Renal Denervation" to help control your blood pressure. This procedure is only done at large medical centers such as [facility], [place], [facility], etc. Dr Woods is trying to coordinate a referral for you to see if you are a candidate for the procedure. During the stay we ruled out a variety of infections (viruses, tickborne diseases, etc). We also did not find evidence of any autoimmune disease. Finally, you underwent a bone marrow biopsy due to low white cells, low red cells, and low platelets - in conjunction with enlarged liver & spleen. The final bone marrow biopsy results have not returned, but hematology has low suspicion that you have a disease of your bone marrow or blood. Fortunately your white cells, red cells, and platelets are all trending upward -- this is a very good sign. Recommendations -- 1. blood pressure medicine regimen: * labetalol 400mg three times daily; new prescription sent to [facility] * minoxidil 20mg twice daily; new prescription sent to [facility] * torsemide 40mg twice daily (no change in dose) * amlodipine 10mg once daily (no change in dose) * clonidine patch - 0.3mg/24 hours -- change weekly (right now you have a 0.2mg patch on; upon return home please throw the current patch out, and start back the 0.3mg patch; you should already have the 0.3mg strength at home) 2. please check your blood pressure at least once daily; I would do this about 1 hour after you take your morning blood pressure medicines. If you have any double vision, visual disturbance, headache, dizziness, etc - also check your blood pressure at that time to ensure you are not running high. Keep a log of your blood pressures and show these to Dr Woods. 3. for prevention of headaches - * gabapentin 200mg twice daily 4. for prevention of seizures - * keppra (levetiracetam) 1000mg daily * on dialysis days be sure to take AFTER your dialysis session 5. for prevention of high potassium - * take Lokelma 1 packet daily; best to take this in the early evening hours to avoid interfering with your other medicines 6. for mood/anxiety - * mirtazapine 15mg at bedtime (this helps depression, sleep, and appetite) * lorazepam 0.5mg every 12 hours as needed for anxiety; ONLY USE THIS FOR SHORT TERM * do not drink alcohol while taking these medicines 7. additional medicines recommended by your kidney doctors - * nephrocaps vitamin daily * sevelamer 1 tablet three times daily with meals 8. NO DRIVING A CAR OR OPERATING HEAVY MACHINERY AT THIS TIME. NO SWIMMING ALONE IN ANY BODY OF WATER. NO TUB BATHS UNATTENDED. Neurology will tell you when it is safe to return to the above activities. Return to [facility] if - -you have fevers over 100 degrees -you have recurrent seizures -you have severe headaches -you have any concerns about your blood pressure being too high -you develop visual loss, severe double vision, difficulty walking/worsening balance, etc. -you are weak in either arm or leg -any other concerns It was our pleasure to care for you! -Bin Krishnamurthy, [facility] medicine Pending Studies at Discharge: Yes Studies:: Bone marrow biopsy Stand-Alone Forms: My [facility], Smoking Cessation Medications and DC Order Prescriptions: New gabapentin 100 mg Capsule 200 mg PO BID Qty: 120 2RF levetiracetam 1,000 mg tablet 1,000 mg PO DAILY Qty: 30 2RF Rx Instructions: for seizure prevention; on dialysis days take AFTER your dialysis session. lorazepam 0.5 mg Tablet 0.5 mg PO Q12H PRN (Reason: anxiety) Qty: 7 0RF mirtazapine 15 mg Tablet 15 mg PO HS Qty: 30 2RF Renal Caps 1 mg Capsule 1 cap PO QAM Qty: 30 2RF Lokelma 10 gram Powder In Packet 10 g PO DAILY@1900 Qty: 30 2RF sevelamer carbonate 800 mg Tablet 800 mg PO TIDM Qty: 90 2RF Continued hydroxyzine HCl 25 mg tablet 25 mg PO TID PRN (Reason: anxiety) Qty: 90 1RF calcium acetate(phosphat bind) 667 mg capsule 1,334 mg PO TIDM 90 Days Qty: 540 3RF amlodipine 10 mg tablet 10 mg PO QAM Qty: 90 2RF cholecalciferol (vitamin D3) 125 mcg (5,000 unit) tablet 125 mcg PO QAM Qty: 90 1RF torsemide 20 mg tablet 40 mg PO BID clonidine 0.3 mg/24 hr patch weekly 0.3 mg transdermal Q7D ketoconazole 2 % cream 1 applic topical .every other day PRN (Reason: Rash) Rx Instructions: Apply as directed at Cath site Medical Marijuana 1 dose PO DIRECTED PRN (Reason: Other) Changed labetalol 200 mg tablet 400 mg PO TID Qty: 180 2RF minoxidil 10 mg tablet 20 mg PO BID Qty: 120 2RF Discontinued losartan 50 mg tablet 50 mg PO BID clonidine HCl 0.3 mg tablet 0.3 mg PO DAILY Qty: 30 0RF Hold Instructions: utilizing patch No Action sertraline 25 mg tablet 25 mg PO DAILY Qty: 30 2RF Discharge Orders: Discharge Order (Routine); Ordered 05/09/25 Ordered By: Bin Beckett/Other Patient Handouts: Levetiracetam Oral Tablet, LVH, Low Potassium Diet Dc Admission Data Admit Date/Time: 04/20/25 00:56 Attending Provider: Bin Krishnamurthy Admit Provider: Linette Conde Primary Care Provider: Harsh Marshall Other Providers: Chavez Bonner; Anival Valle; Pineda Vogel; Marycruz Hawk; Oscar Aj Other Interventions: Discharge Summary Assessment (RN) Last Done: 05/09/25 19:51 Hospital Stay Data Consultations [facility] Nephrology [facility] Neurology [facility] Pulmonology [facility] Hematology Psychiatry Physical therapy Procedures Performed 1. bone marrow biopsy 2. TWO units PRBCs 3. echocardiogram - Diagnostic Imagining Performed Head CT 04/20/25 00:56 EXAM: CT head/brain wo con CLINICAL HISTORY: Seizure TECHNIQUE: Axial non-contrast CT scan of the brain was performed from the skull base to the high parietal region with coronal and sagittal reformats. One of the following dose reduction techniques was utilized for this exam: Automated exposure control, adjustment of the mA and/or kV according to patient size, and use of iterative reconstruction. COMPARISON: CT dated 04/09/2025. FINDINGS: Brain Parenchyma: A hypodensity is seen in the right superior frontal region with poor differentiation of the overlying cortex. Subcortical hypodense areas in the superior parietal regions bilaterally, right occipital regions, and hypodense areas in the cerebellum, more evident on the left side. No evidence of acute hemorrhage or mass effect. Ventricular System: Ventricles are normal in size and configuration. No evidence of hydrocephalus or ventricular enlargement. Subarachnoid Spaces: Normal sulci and cisterns. No evidence of subarachnoid hemorrhage or extra-axial fluid collections. Cerebellum and Brainstem: Hypodense areas in the cerebellum, more evident on the left side. No masses, lesions, or areas of abnormal density in the brainstem. Orbits: Normal appearance of the globes, optic nerves, and extraocular muscles. No evidence of orbital masses or abnormal density. Sinuses: Clear paranasal sinuses. No evidence of sinusitis or mucosal thickening. Mastoid Air Cells: Clear mastoid air cells. No evidence of mastoiditis. Skull: Normal skull morphology. IMPRESSION: 1. A hypodensity is seen in the right superior frontal region with poor differentiation of the overlying cortex (New). 2. Subcortical hypodense areas in the superior parietal regions bilaterally, right occipital region, and hypodense areas in the cerebellum, more evident on the left side(new). Imaging appearances may represent posterior reversible encephalopathy syndrome (PRES). However, other possibilities cannot be excluded on this unenhanced CT. 3. Clinical correlation and further evaluation with an MRI brain, including DWI/ADC sequence, is suggested. Electronically signed by Chai Bonner 04-20-2025 02:54 AM Brain MRI 04/20/25 10:43 MR brain wo con CLINICAL HISTORY: susptected PRES COMPARISON STUDY: CT earlier today and 04/02/2025 MRI FINDINGS: There is a small area of cortical restricted diffusion upper right frontoparietal junction with associated increased T2 signal intensity at that location and extending more anteriorly into the right frontal lobe, interval. No other restricted diffusion seen. There are small to moderate sized areas of increased T2 signal intensity posterior parietal and occipital lobes and posteriorly in the cerebellar hemispheres and at the left frontoparietal junction, increased or interval. No mass effect, midline shift, or hydrocephalus. No intracranial hemorrhage seen. There is a small mucous retention cyst inferior left maxillary sinus. IMPRESSION: 1. Progressive scattered areas of increased T2 signal intensity most prominent posteriorly. Differential diagnosis includes progressive posterior reversible encephalopathy syndrome and other encephalopathy. 2. Small area of restricted diffusion right frontoparietal junction with associated increased T2 signal intensity. Differential diagnosis includes small acute to recent subacute infarction and post seizure restricted diffusion. ACT 112: Positive. There are findings on this exam that require communication between the performing entity and the patient following Patient Test Result Information Act ([place] Act 112) guidelines. Electronically signed by: Kaleb Pan M.D. 04/20/2025 12:08 PM Abdomen Ultrasound 04/22/25 08:27 ABDOMINAL ULTRASOUND, RIGHT UPPER QUADRANT HISTORY: eval poss hepatosplenomegaly based on CT, hx ESRD. COMPARISON: CT of the abdomen and pelvis April 09, 2025. CT of the abdomen and pelvis September 03, 2023. TECHNIQUE: Sonography of the liver and spleen was performed. FINDINGS: Small bilateral pleural effusions are incidentally noted. The liver is enlarged, measuring 21 cm in craniocaudal dimension. Trace perihepatic ascites. No hepatic lesions are identified. The spleen is also enlarged, measuring 21 cm in maximal dimension. No splenic lesions are identified. IMPRESSION: 1. Moderate hepatosplenomegaly. 2. Small bilateral pleural effusions. ACT 112: Negative or not required by law. Electronically signed by: Magdy Jones M.D. 04/22/2025 2:51 PM Chest X-Ray 04/22/25 16:05 Technique: A frontal view of the chest was obtained Comparison is made to the prior examination dated 04/15/2025 Findings: There are no confluent pulmonary infiltrates. The heart size is within normal limits. No pleural effusion or pneumothorax is seen. There is no definite pulmonary nodule. No fracture is noted. There is a right jugular central venous line with its tip in the SVC Impression: No active disease Electronically signed by Harmeet Tsai 04-22-2025 4:[address] 04/22/25 16:13 Clinical History: Headache Technique: Axial computed tomography images were obtained of the brain from the vertex to the skull base without intravenous contrast. Comparison is made to the prior CT dated 04/20/2025 Findings: There is no sign of intracranial hemorrhage. There is no definite change in cortical and subcortical low attenuation in the parietal lobes bilaterally and the right occipital lobe. No midline shift or other form of herniation is identified. There is no hydrocephalus. No obvious mass lesion is seen on this noncontrast examination. The visualized portions of the orbits and paranasal sinuses appear unremarkable. The mastoid air cells appear clear Impression: 1. No definite acute pathology 2. Unchanged cortical and subcortical low attenuation in the bilateral parietal lobes and the right occipital lobe. This could be due to old infarcts or posterior reversible encephalopathy syndrome Electronically signed by Harmeet Tsai 04-22-2025 5:[address] 04/22/25 16:38 Clinical history: Sinusitis Technique: Axial computed tomography images were obtained of the paranasal sinuses without intravenous contrast. Sagittal and coronal reconstructions were obtained Findings: There are mucus retention cyst in the maxillary sinuses bilaterally. The remainder of the paranasal sinuses appear clear without significant mucosal thickening, fluid, retention cyst, or mass. The ostiomeatal units are narrowed by mucosal thickening but patent bilaterally. The mastoid air cells appear clear The orbits appear unremarkable. No foreign body is seen. The nasal septum is deviated. No definite nasal polyp is noted No fracture is identified. No focal osseous lesion is noted. The visualized brain appears unremarkable Impression: Mild chronic sinusitis Electronically signed by Harmeet Tsai 04-22-2025 5:48 PM Abdomen CTA 04/23/25 14:00 CT angio abdomen w con CLINICAL HISTORY: Attention to renal arteries AFTER HD TODAY . Evaluate for renal artery stenosis. COMPARISON STUDY: 04/09/2025 FINDINGS: There are trace bilateral pleural effusions. ABDOMEN: There is stable hepatosplenomegaly with the spleen measuring 19 cm. Gallbladder, pancreas, and adrenal glands are unremarkable. Kidneys show no hydronephrosis. Stable small cyst left kidney. Visualized bowel shows no inflammation or obstruction. No ascites. No enlarged adenopathy. CTA: There is no abdominal aortic aneurysm or significant aortic luminal narrowing. Celiac, superior mesenteric, bilateral renal, and inferior mesenteric arteries are widely patent. Common iliac arteries are widely patent. Osseous structures: No acute osseous findings. IMPRESSION: Widely patent renal arteries. No evidence of renal artery stenosis. Otherwise as described. ACT 112: Negative or not required by law. Electronically signed by: Kaleb Pan M.D. 04/23/2025 4:13 PM Head/Brain Mag Res Venography 04/25/25 14:29 EXAM: MR venography head wo con CLINICAL HISTORY: known PRES; personal/fam Hx DVT; headaches TECHNIQUE: 2D and 3D phase contrast. Maximum intensity projection and 3D reconstruction were performed for the dural Venous sinuses. Images were sent through PACs for diagnostic interpretation. COMPARISON: CT Brain dated 04/22/2025. FINDINGS: The left sigmoid and lateral sinuses, as well as the proximal straight sinus, show subtle Hypoplasia/Focal signal dropout; otherwise, there is a Normal morphological appearance of the dural venous sinuses with no evidence of sinus thrombosis Normal superficial and deep venous cortical veins. IMPRESSION: 1. The left sigmoid and lateral sinuses, as well as the proximal straight sinus, show subtle Hypoplasia/Focal signal dropout. Otherwise, the dural venous sinuses show no features to suggest major sinus thrombosis. 2. The comparison matches the CT findings. Electronically signed by Chai Bonner 04-25-2025 7:58 PM KUB X-Ray 04/25/25 14:29 KUB HISTORY: LUQ pain; constipation?? COMPARISON STUDY: 04/23/2025 FINDINGS: There is a large amount of retained stool. No bowel obstruction seen. No gross free air. IMPRESSION: Large amount of retained stool. ACT 112: Negative or not required by law. The above report was generated using voice recognition software. It may contain grammatical, syntax or spelling errors. Electronically signed by: Kaleb Pan M.D. 04/25/2025 3:35 PM Bone Marrow Biopsy w/ CT 04/28/25 15:06 CT guided bone marrow biopsy INDICATION: Pancytopenia PROCEDURE: Procedure and risks were explained. Informed consent was obtained. A final timeout was completed. The patient was placed prone on the CT exam table. The left gluteal region was prepped and draped in sterile fashion. 1% lidocaine was utilized for skin anesthesia. The patient received 100 mcg fentanyl IV. Utilizing CT guidance, an 11-gauge bone biopsy needle was advanced into the left iliac bone. Multiple aspirates and 1 bone core was obtained and given to the lab. The needle was removed and Band-Aid applied. The patient tolerated the procedure well. Vital signs will be monitored postprocedure. IMPRESSION: Bone marrow biopsy as above. Performed, dictated, and signed by Adalberto Chang PA-C; to be co-signed by Dr. Magdy Jones. Electronically signed by: Magdy Jones M.D. 04/29/2025 3:25 PM Chest X-Ray 05/04/25 09:17 XR chest 1V portable HISTORY: 20 years-old Male cough acute cough COMPARISON: 04/22/2025 TECHNIQUE: AP view the chest FINDINGS: Right IJ dual-lumen hemodialysis catheter is unchanged. Cardiomegaly. Trace pleural effusions with pulmonary vascular congestion. No pneumothorax or lobar airspace consolidation. Interstitial coarsening is noted. Bones appear grossly intact. IMPRESSION: Cardiomegaly with small pleural effusions and probable interstitial pulmonary edema. ACT 112: Negative or not required by law. The above report was generated using voice recognition software. It may contain grammatical, syntax or spelling errors. Electronically signed by: Filemon Gibbs M.D. 05/04/2025 10:59 AM Venous Doppler Study 05/08/25 12:54 Clinical History: Rule out DVT. Technique: Doppler sonography was performed of the bilateral arm veins Findings: The visualized bilateral jugular, subclavian, and axillary all appear patent with normal anechoic lumens and full compressibility. Expected Doppler waveforms were noted. No definite soft tissue mass or fluid collection is seen. Impression: No evidence of deep venous thrombosis Electronically signed by Harmeet Tsai 05-08-2025 4:44 PM Pending Results Patient Have Any Pending Studies at Discharge: Yes Discharge Instructions Given to Patient (Per Discharging Provider) Mr Ramos, You were hospitalized due to having 2 seizures. The seizures were likely due to your "PRES" condition. MRI brain this admission again showed evidence of PRES. You were started on Keppra (levetiracetam) for seizure prevention. Your blood pressures were very high when you got admitted on 04/20/25. During your hospital stay your blood pressures were very difficult to control. Your blood pressure medicines were changed numerous times and finally you are now on a regimen that is providing more consistent blood pressure control. [facility] was instrumental in managing your blood pressure. We checked you for various conditions that can make blood pressure hard to control and all of these tests returned normal or negative. Specifically, your renal arteries were normal, your thyroid levels were normal, your aldosterone level was normal, overnight oximetry study showed your oxygen levels during sleep were normal, and a blood test for something called metanephrines also returned normal. All of your symptoms - double vision, dizziness/vertigo, visual disturbance, headaches, etc - were due to the PRES condition. As your blood pressures improved your PRES symptoms also improved. Moving forward it will be pastrana to control your blood pressures so that the PRES condition does not recur. There has been discussion about you undergoing a procedure called "Renal Denervation" to help control your blood pressure. This procedure is only done at large [facility] centers such as [facility], [place], [facility], etc. Dr Woods is trying to coordinate a referral for you to see if you are a candidate for the procedure. During the stay we ruled out a variety of infections (viruses, tickborne diseases, etc). We also did not find evidence of any autoimmune disease. Finally, you underwent a bone marrow biopsy due to low white cells, low red cells, and low platelets - in conjunction with enlarged liver & spleen. The final bone marrow biopsy results have not returned, but hematology has low suspicion that you have a disease of your bone marrow or blood. Fortunately your white cells, red cells, and platelets are all trending upward -- this is a very good sign. Recommendations -- 1. blood pressure medicine regimen: * labetalol 400mg three times daily; new prescription sent to [facility] * minoxidil 20mg twice daily; new prescription sent to [facility] * torsemide 40mg twice daily (no change in dose) * amlodipine 10mg once daily (no change in dose) * clonidine patch - 0.3mg/24 hours -- change weekly (right now you have a 0.2mg patch on; upon return home please throw the current patch out, and start back the 0.3mg patch; you should already have the 0.3mg strength at home) 2. please check your blood pressure at least once daily; I would do this about 1 hour after you take your morning blood pressure medicines. If you have any double vision, visual disturbance, headache, dizziness, etc - also check your blood pressure at that time to ensure you are not running high. Keep a log of your blood pressures and show these to Dr Woods. 3. for prevention of headaches - * gabapentin 200mg twice daily 4. for prevention of seizures - * keppra (levetiracetam) 1000mg daily * on dialysis days be sure to take AFTER your dialysis session 5. for prevention of high potassium - * take Lokelma 1 packet daily; best to take this in the early evening hours to avoid interfering with your other medicines 6. for mood/anxiety - * mirtazapine 15mg at bedtime (this helps depression, sleep, and appetite) * lorazepam 0.5mg every 12 hours as needed for anxiety; ONLY USE THIS FOR SHORT TERM * do not drink alcohol while taking these medicines 7. additional medicines recommended by your kidney doctors - * nephrocaps vitamin daily * sevelamer 1 tablet three times daily with meals 8. NO DRIVING A CAR OR OPERATING HEAVY MACHINERY AT THIS TIME. NO SWIMMING ALONE IN ANY BODY OF WATER. NO TUB BATHS UNATTENDED. Neurology will tell you when it is safe to return to the above activities. Return to [facility] if - -you have fevers over 100 degrees -you have recurrent seizures -you have severe headaches -you have any concerns about your blood pressure being too high -you develop visual loss, severe double vision, difficulty walking/worsening balance, etc. -you are weak in either arm or leg -any other concerns It was our pleasure to care for you! 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
[2025-05-09 19:36] VITALS: BP 169/93; O2SAT 97
[2025-05-09 19:54] VITALS: PULSE 85
[2025-05-16] MEDS ORDERED: REMOVE CLONIDINE PATCH SCH (08:59)
== END 2025-05-09 20:15 | disposition home or self-care (01) | DRG 70 ==
LOC: ED 22:03 → SUATTDRO 04-20 00:56 → 2S 04-20 00:56
DX: F32.A Depression, unspecified; D69.6 Thrombocytopenia, unspecified; R45.851 Suicidal ideations; Z79.01 Long term (current) use of anticoagulants; E87.5 Hyperkalemia; K59.00 Constipation, unspecified; I12.0 Hypertensive chronic kidney disease with stage 5 chronic kidney disease or end stage renal disease; I51.7 Cardiomegaly; F33.2 Major depressive disorder, recurrent severe without psychotic features; I67.83 Posterior reversible encephalopathy syndrome; G40.89 Other seizures; Z99.2 Dependence on renal dialysis; E85.9 Amyloidosis, unspecified; D61.818 Other pancytopenia; F41.9 Anxiety disorder, unspecified; I16.1 Hypertensive emergency; N18.6 End stage renal disease

== ENCOUNTER 2025-05-17 05:18 | Inpatient (IN) ==
[2025-05-17] MEDS: LABETALOL HCL 100 MG TAB PO ONE (05:37)
[2025-05-17] MEDS: levETIRAcetam 500 MG TAB PO STA (05:38)
[2025-05-17 05:46] LABS: Hematocrit (blood only) 24.2 % (42.0-52.0); Hemoglobin 8.3 g/dl (14.0-18.0); Immature Granulocytes # (auto) 0.01 K/uL (0.01-0.20); Immature Granulocytes % (auto) 0.3 %; Mean Corpuscular Hemoglobin 30.4 pg (25.0-34.0); Mean Corpuscular Volume 88.6 fL (80.0-100.0); Platelet Count 97 K/uL (130-400); RDW Standard Deviation 50.1 fL (36.4-46.3); Red Blood Count 2.73 M/uL (4.70-6.10); White Blood Count 3.94 K/ul (4.8-10.8)
[2025-05-17 06:16] LABS: Alanine Aminotransferase 13.0 U/L (7-52); Albumin Globulin Ratio 1.8 (0.9-2); Alkaline Phosphatase 50.0 U/L (34-104); Anion Gap 13.0 (3-11); Bilirubin,Total 0.6 mg/dl (0.2-1.0); Blood Urea Nitrogen 68.0 mg/dl (6-23); Calcium 8.8 mg/dl (8.6-10.3); Carbon Dioxide 31.0 mmol/L (21-32); Chloride 99.0 mmol/L (98-107); Creatinine Clr Calc Pharmacy 10.6 ml/min; Globulin 2.2 gm/dl (2.5-4.0); Glucose 155.0 mg/dl (70-99(Fasting)); Potassium 3.6 mmol/L (3.5-5.1); Sodium 143.0 mmol/L (136-145); Total Protein 6.2 gm/dl (6.0-8.3)
--- NOTE | 2025-05-17 07:07 | Emergency Department Note ---
Impression & Plan History of removal of dialysis catheter, ESRD on hemodialysis ED Provider Note NAME: JI MCCOY AGE: 20 SEX: M : 2005 ARRIVES VIA: Ambulance INFORMANT: Patient, ED PROVIDER(S): Bebe Herrera MD CHIEF COMPLAINT: Dialysis catheter HPI: This is a 20-year-old male presented for dialysis catheter malfunction. Patient was driving today on his way to dialysis. He notes when he was driving he felt a warm sensation trickling down his chest. He looked down and noticed that his catheter was coming out. By the time EMS arrived, it was fully out. He had direct pressure applied. He states he feels tired and has had some slight chest pain. ROS: See above HPI for pertinent positives & negatives. A total of 10 systems reviewed and were otherwise negative. PAST MEDICAL HISTORY: See Below PAST SURGICAL HISTORY: See Below FAMILY HISTORY: See Below SOCIAL HISTORY: See Below HOME MEDICATIONS: See Below ALLERGIES: See Below VITALS: See Below PHYSICAL EXAMINATION: General: resting comfortably in no acute distress Head: Normocephalic and atraumatic Eyes: Normal inspection, extraocular muscles intact Ear, nose, throat: Normal external exam Neck: Normal range of motion Respiratory: lungs clear to auscultation bilaterally Cardiovascular: Regular rate/rhythm, no murmur Chest: No current bleeding noted to the previous dialysis catheter wound GI: soft, nontender, no guarding or rebound Extremities: nontender, moves all extremities Neuro: The patient awake and alert, appropriately conversive, no focal deficits, symmetric faces Skin: Warm, dry, and intact MEDICAL DECISION MAKING: This 28-year-old male presented for dialysis catheter. Patient had his catheter accidentally removed, there is currently no persistent bleeding. Will get basic blood work and assess for admission - Blood reviewed showing pancytopenia. Otherwise creatinine is 12.6 without significant abnormalities in electrolytes including potassium -Chest Xray independently interpreted by me showing no pneumothorax, focal opacity, or pleural effusions. - Due to patient's dialysis needs and no current dialysis catheter, will admit for catheter placement and dialysis Differential diagnosis: Hyperkalemia, fluid overload, persistent bleeding, hemothorax, pneumothorax Independent History obtained from: [facility] interpreted by me: ECG: ECG independently interpreted by me with normal sinus rhythm, rate of 80, normal axis, normal VA, normal QRS, normal QTc, no ST segment elevations consistent with STEMI criteria Cardiac Monitoring: An order was placed for continuous cardiac monitoring. The monitor shows a rate of 73 with sinus rhythm. Past Med/Surg History Problem List (Updated 05/17/25 @ 15:49 by Bebe Herrera MD) History of removal of dialysis catheter (Acute) Hemodialysis catheter malfunction Anemia due to chronic kidney disease PRES (posterior reversible encephalopathy syndrome) Encounter for pre-operative examination Facial edema LVH (left ventricular hypertrophy) Fatigue MDD (major depressive disorder), recurrent episode, severe Pancytopenia LUQ pain Serologic abnormality Pleural effusion Constipation Thrombocytopenia Sinusitis Hemoptysis Severe uncontrolled hypertension Intractable headache Seizure Anxiety Carious teeth Impacted teeth with abnormal position ESRD on hemodialysis (Acute) Hypertension (Acute) Hypertensive emergency (Acute) Medical History Anemia Anticoagulated on Coumadin pt states he has not been taking his Coumadin since apprx mid January 2025 Cardiac murmur CKD (chronic kidney disease) Dialysis patient [facility] in [place] > [facility]/thurs/sat End stage renal disease follows with Dr. Woods - 3x per week:[facility] in [place] > [facility]/thurs/[facility] End stage renal disease FSGS (focal segmental glomerulosclerosis) Generalized anxiety disorder Headache History of postoperative nausea and vomiting Hx of deep venous thrombosis 01/2024 > right arm > was on warfarin > now DC'ed Hx of metabolic acidosis Hyperkalemia Hypertension recently added clonidine 0.[address] woods Nausea & vomiting New onset seizure PRES (posterior reversible encephalopathy syndrome) Thrombophilia Surgical History H/O hernia repair S/P hemodialysis catheter insertion (12/2024) perm cath for HD- right jugular S/P left knee arthroscopy Family History Mother Diabetes Grandfather (Maternal) Hypertension Other No family history of adverse response to anesthesia Denies family history of Ovarian cancer Prostate cancer Myocardial infarction Breast cancer Lung cancer Stroke Social History Smoking Status: Never smoker Tobacco Type: Smokeless Tobacco (Dip or Chew) Second Hand Exposure: No; Do You Dip or Chew Tobacco: No; Hx Alcohol Use: No Hx Substance Use: Yes Last Used Substance: Unknown Last Used Substance Other:: 2 days Substance Use Type Other:: has card Preferred Language: Brazilian Communication Ability: Effective Visual Impairment: No Limitations Hearing Ability: Normal Learning Support Resource Room Teacher Required: Yes Beliefs That Will Affect Care: None marital status: Single Current Living Situation: Family Current Living Situation Comment: lives at home with family current occupational status: employed 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 How many Children do You have: 0 Feels Safe at Home: Yes Childhood Exposure to Second-Hand Smoke: No caffeine: No Dental Care, Regularly: Yes Physical Activity Frequency: 5-6 Times per Week Seatbelt Use: always Sunscreen Use: No Assistive Devices: None Allergies Allergies Allergy/AdvReac Type Severity Reaction Status Date / Time No Known Allergies Allergy Unknown Verified 05/17/25 08:13 Home Meds Home Medications Medication Instructions Recorded Confirmed Medical Marijuana 1 dose PO DIRECTED PRN Other 03/14/25 05/17/25 clonidine 0.3 mg/24 hr weekly 0.3 mg transdermal Q7D 04/17/25 05/17/25 transdermal patch ketoconazole 2 % topical cream 1 applic topical Q OTHER DAY PRN 04/17/25 05/17/25 Rash torsemide 20 mg tablet 40 mg PO BID 04/17/25 05/17/25 Previous Rx's Medication Instructions Recorded hydroxyzine HCl 25 mg tablet 25 mg PO TID PRN anxiety #90 tabs 11/13/24 amlodipine 10 mg tablet 10 mg PO QAM #90 tabs 01/29/25 calcium acetate(phosphat bind) 667 1,334 mg (2 x 667 mg) PO TIDM 90 01/29/25 mg capsule days #540 caps cholecalciferol (vitamin D3) 125 125 mcg PO QAM #90 tabs 01/29/25 mcg (5,000 unit) tablet gabapentin 100 mg capsule 200 mg (2 x 100 mg) PO BID #120 05/09/25 caps labetalol 200 mg tablet 400 mg (2 x 200 mg) PO TID #180 05/09/25 tabs levetiracetam 1,000 mg tablet 1,000 mg PO DAILY #30 tabs 05/09/25 lorazepam 0.5 mg tablet 0.5 mg PO Q12H PRN anxiety #7 tabs 05/09/25 minoxidil 10 mg tablet 20 mg (2 x 10 mg) PO BID #120 tabs 05/09/25 mirtazapine 15 mg tablet 15 mg PO HS #30 tabs 05/09/25 sevelamer carbonate 800 mg tablet 800 mg PO TIDM #90 tabs 05/09/25 sodium zirconium cyclosilicate 10 10 g PO DAILY@1900 #30 ea 05/09/25 gram oral powder packet (Lokelma) vitamin B complex and vitamin C 1 cap PO QAM #30 caps 05/09/25 no.20-folic acid 1 mg capsule (Renal Caps) sertraline 25 mg tablet 25 mg PO DAILY #30 tabs 05/14/25 Results & Data (ED) Vital Signs Vital Signs - 24 hr 05/17/25 05:15 05/17/25 05:15 05/17/25 05:21 Temperature 36.5 C Temperature Source Oral Pulse Rate 90 93 H Pulse Rate [Apical] Pulse Rate from SpO2 Sensor Respiratory Rate 20 Respiratory Effort / Characteristics Non-Labored Spontaneous Respiratory Depth Normal Respiratory Pattern Regular Blood Pressure 198/118 H Blood Pressure [Right Arm] Blood Pressure Mean 144 Blood Pressure Mean [Right Arm] Pulse Oximetry 96 96 Oxygen Delivery Method Room Air Room Air Sepsis Recent Fever Within 48 Hours No Sepsis New/Unexplained Change in Mental Status N/A Sepsis Action Taken by Nursing No Action Required 05/17/25 05:54 05/17/25 06:00 05/17/25 06:30 Temperature Temperature Source Pulse Rate 87 84 Pulse Rate [Apical] Pulse Rate from SpO2 Sensor Respiratory Rate 17 14 Respiratory Effort / Characteristics Respiratory Depth Respiratory Pattern Blood Pressure 168/104 H 154/92 H Blood Pressure [Right Arm] Blood Pressure Mean 125 118 Blood Pressure Mean [Right Arm] Pulse Oximetry 96 96 94 Oxygen Delivery Method Room Air Room Air Room Air Sepsis Recent Fever Within 48 Hours Sepsis New/Unexplained Change in Mental Status Sepsis Action Taken by Nursing 05/17/25 07:00 05/17/25 07:30 05/17/25 07:30 Temperature Temperature Source Pulse Rate 84 84 Pulse Rate [Apical] 79 Pulse Rate from SpO2 Sensor 86 84 Respiratory Rate 19 18 12 Respiratory Effort / Characteristics Non-Labored Spontaneous Respiratory Depth Normal Respiratory Pattern Blood Pressure 151/91 H 150/82 H Blood Pressure [Right Arm] 150/82 H Blood Pressure Mean 115 112 Blood Pressure Mean [Right Arm] 104 Pulse Oximetry 93 93 93 Oxygen Delivery Method Room Air Sepsis Recent Fever Within 48 Hours Sepsis New/Unexplained Change in Mental Status Sepsis Action Taken by Nursing 05/17/25 07:30 05/17/25 08:00 Temperature Temperature Source Pulse Rate 81 Pulse Rate [Apical] Pulse Rate from SpO2 Sensor 80 Respiratory Rate 12 Respiratory Effort / Characteristics Respiratory Depth Respiratory Pattern Blood Pressure 150/82 H 152/77 H Blood Pressure [Right Arm] Blood Pressure Mean 112 104 Blood Pressure Mean [Right Arm] Pulse Oximetry Oxygen Delivery Method Sepsis Recent Fever Within 48 Hours Sepsis New/Unexplained Change in Mental Status Sepsis Action Taken by Nursing Laboratory Data 05/17/25 05:25 05/17/25 05:25 Lab Results 05/17/25 Range/Units 05:25 WBC 3.94 L (4.8-10.8) K/ul RBC 2.73 L (4.70-6.10) M/uL Hgb 8.3 L (14.0-18.0) g/dl Hct 24.2 L (42.0-52.0) % MCV 88.6 (80.0-100.0) fL MCH 30.4 (25.0-34.0) pg MCHC 34.3 (32.0-36.0) g/dL RDW Std Deviation 50.1 H (36.4-46.3) fL RDW Coeff of Juliana 15.7 H (11.5-14.5) % Plt Count 97 L (130-400) K/uL MPV 10.2 (9.4-12.4) fL Immature Gran % (Auto) 0.3 % Neut % (Auto) 49.4 % Lymph % (Auto) 34.3 % [place] % (Auto) 8.1 % Eos % (Auto) 6.6 % Baso % (Auto) 1.3 % Neut # (Auto) 1.95 (1.40-6.50) K/uL Lymph # (Auto) 1.35 (1.20-3.40) K/uL [place] # (Auto) 0.32 (0.11-0.59) K/uL Eos # (Auto) 0.26 (0.00-0.50) K/uL Baso # (Auto) 0.05 (0.00-0.20) K/uL Immature Gran # (Auto) 0.01 (0.01-0.20) K/uL Sodium 143 (136-145) mmol/L Potassium 3.6 (3.5-5.1) mmol/L Chloride 99 (98-107) mmol/L Carbon Dioxide 31 (21-32) mmol/L Anion Gap 13 H (3-11) BUN 68 H (6-23) mg/dl Creatinine 12.60 H* (0.6-1.4) mg/dl Est Cr Clr Drug Dosing 10.6 ml/min eGFR 5.28 BUN/Creatinine Ratio 5.4 L (10-20) Glucose 155 H (70-99(Fasting)) mg/dl Calcium 8.8 (8.6-10.3) mg/dl Total Bilirubin 0.6 (0.2-1.0) mg/dl AST 16 (13-39) U/L ALT 13 (7-52) U/L Alkaline Phosphatase 50 (34-104) U/L Total Protein 6.2 (6.0-8.3) gm/dl Albumin 4.0 (3.4-5.0) gm/dl Globulin 2.2 L (2.5-4.0) gm/dl Albumin/Globulin Ratio 1.8 (0.9-2) Administered Medications Calcium Acetate (Calcium Acetate 667 Mg Cap/Tab) 1,334 mg PO TIDM MOOSE Stop: 06/16/25 11:59 Last Admin: 05/17/25 12:14 Dose: 1,334 mg Documented By: CFD Gabapentin (Gabapentin 100 Mg Cap) 200 mg PO BID MOOSE Stop: 06/16/25 09:16 Last Admin: 05/17/25 10:13 Dose: 200 mg Documented By: CFD Labetalol HCl (Labetalol Hcl 200 Mg Tab) 400 mg PO TID MOOSE Stop: 06/16/25 09:16 Last Admin: 05/17/25 13:44 Dose: 400 mg Documented By: Admin: 05/17/25 10:14 Dose: 400 mg Documented By: CFD Morphine Sulfate (Morphine Sulfate 2 Mg/Ml Carp) 2 mg IV Q3H PRN PRN Reason: Pain Stop: 05/31/25 09:55 Last Admin: 05/17/25 14:31 Dose: 2 mg Documented By: CFD Sevelamer Carbonate (Sevelamer Carbonate 800 Mg Tab) 800 mg PO TIDM MOOSE Stop: 06/16/25 11:59 Last Admin: 05/17/25 12:14 Dose: 800 mg Documented By: ZAKI Torsemide (Torsemide 20 Mg Tab) 40 mg PO BID17 MOOSE Stop: 06/16/25 09:16 Last Admin: 05/17/25 10:14 Dose: 40 mg Documented By: ZAKI Vitamin B Complex/Folic Acid (Nephrocaps) 1 cap PO QAM MOOSE Stop: 06/16/25 09:16 Last Admin: 05/17/25 10:13 Dose: 1 cap Documented By: CFAlexandro Vitamin D (Cholecalciferol 125 Mcg (5,000 Units) Tab) 125 mcg PO QAM MOOSE Stop: 06/16/25 09:16 Last Admin: 05/17/25 10:13 Dose: 125 mcg Documented By: ZAKI Discontinued Medications Acetaminophen (Ofirmev) 1,000 mg in 100 mls @ 400 mls/hr IV NOW STA Stop: 05/17/25 07:14 Last Infusion: 05/17/25 09:19 Dose: Infused Documented By: Admin: 05/17/25 07:13 Dose: 400 mls/hr Documented By: OVIDIO Labetalol HCl (Labetalol Hcl 100 Mg Tab) 400 mg PO NOW ONE Stop: 05/17/25 05:31 Last Admin: 05/17/25 05:37 Dose: 400 mg Documented By: Levetiracetam (Levetiracetam 500 Mg Tab) 1,000 mg PO NOW STA Stop: 05/17/25 05:31 Last Admin: 05/17/25 05:38 Dose: 1,000 mg Documented By: Morphine Sulfate (Morphine Sulfate 2 Mg/Ml Carp) 2 mg IV NOW STA Stop: 05/17/25 09:57 Last Admin: 05/17/25 10:05 Dose: 2 mg Documented By: ZAKI Imaging Data Radiologist's Impression: Chest X-Ray 05/17/25 06:20 EXAM: XR chest 1V portable CLINICAL HISTORY: dialysis catheter removal TECHNIQUE: A radiograph of the chest was acquired. 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 FINDINGS: The lungs are clear and well-expanded with no pulmonary infiltrate or pleural effusion. There is no acute osseous abnormality. IMPRESSION: 1. No acute pulmonary disease. 2. Interval removal of right sided central venous catheter. Electronically signed by Freddie Jones 05-17-2025 07:12 AM Discharge Plan Visit Data Chief Complaint: Bleeding Stated Complaint: DISLODGED DIALYSIS PORT ED Provider: Bebe Herrera Discharge Problem: History of removal of dialysis catheter, ESRD on hemodialysis Patient Disposition: Admitted As Inpatient Condition: Fair Discharge Instructions Interventions: ED Discharge Assessment Last Done: 05/17/25 09:13
--- NOTE | 2025-05-17 07:12 | XRay Report ---
EXAM: XR chest 1V portable CLINICAL HISTORY: dialysis catheter removal TECHNIQUE: A radiograph of the chest was acquired. 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 FINDINGS: The lungs are clear and well-expanded with no pulmonary infiltrate or pleural effusion. There is no acute osseous abnormality. IMPRESSION: 1. No acute pulmonary disease. 2. Interval removal of right sided central venous catheter. Electronically signed by Freddie Jones 05-17-2025 07:12 AM
[2025-05-17] MEDS: ACETAMINOPHEN 1,000 MG/100 ML VIAL IV STA (07:13)
--- NOTE | 2025-05-17 08:25 | History & Physical Report ---
Date of Service May 17, 2025 Assessment & Plan (1) ESRD on hemodialysis: Plan: The patient's right upper chest TDC came out today. Chest x-ray reveals no pneumothorax. Hemostasis has been currently achieved. Nephrology has been consulted (2) Hypertension: Plan: Controlled with amlodipine, clonidine, labetalol, minoxidil (3) PRES (posterior reversible encephalopathy syndrome): Plan: Recent hospitalization for PRES associated with seizure activity. Now controlled Plan Nephrology consultation pending. Anticipate placement of temporary dialysis catheter so HD can resume and eventual replacement of tunneled dialysis catheter at a later date. History of Present Illness Chief Complaint: Tunneled dialysis catheter accidentally came out Primary Care Provider: Harsh Marshall DO 20-year-old white male with FSGN and end-stage renal disease who is hemodialysis dependent. He recently was hospitalized with PRES syndrome with seizures. He was going to his usual hemodialysis session this morning when he noticed his right upper chest temporary tunneled dialysis catheter had come out. Minimal bleeding. Chest x-ray done in the ED reveals no evidence of pneumothorax. He is hemodynamically stable. Blood pressure is acceptable at 154/92. He is admitted for further evaluation and treatment along with nephrology consultation Allergies Allergy/AdvReac Type Severity Reaction Status Date / Time No Known Allergies Allergy Unknown Verified 05/17/25 08:13 Home Medications Medication Instructions Recorded Confirmed Type hydroxyzine HCl 25 mg tablet 25 mg PO TID PRN anxiety #90 tabs 11/13/24 05/12/25 Rx amlodipine 10 mg tablet 10 mg PO QAM #90 tabs 01/29/25 05/12/25 Rx calcium acetate(phosphat bind) 667 1,334 mg (2 x 667 mg) PO TIDM 90 01/29/25 05/12/25 Rx mg capsule days #540 caps cholecalciferol (vitamin D3) 125 125 mcg PO QAM #90 tabs 01/29/25 05/12/25 Rx mcg (5,000 unit) tablet Medical Marijuana 1 dose PO DIRECTED PRN Other 03/14/25 05/12/25 History clonidine 0.3 mg/24 hr weekly 0.3 mg transdermal Q7D 04/17/25 05/12/25 History transdermal patch ketoconazole 2 % topical cream 1 applic topical .every other day 04/17/25 05/12/25 History PRN Rash torsemide 20 mg tablet 40 mg PO BID 04/17/25 05/12/25 History gabapentin 100 mg capsule 200 mg (2 x 100 mg) PO BID #120 05/09/25 05/12/25 Rx caps labetalol 200 mg tablet 400 mg (2 x 200 mg) PO TID #180 05/09/25 05/12/25 Rx tabs levetiracetam 1,000 mg tablet 1,000 mg PO DAILY #30 tabs 05/09/25 05/12/25 Rx lorazepam 0.5 mg tablet 0.5 mg PO Q12H PRN anxiety #7 tabs 05/09/25 05/12/25 Rx minoxidil 10 mg tablet 20 mg (2 x 10 mg) PO BID #120 tabs 05/09/25 05/12/25 Rx mirtazapine 15 mg tablet 15 mg PO HS #30 tabs 05/09/25 05/12/25 Rx sevelamer carbonate 800 mg tablet 800 mg PO TIDM #90 tabs 05/09/25 05/12/25 Rx sodium zirconium cyclosilicate 10 10 g PO DAILY@1900 #30 ea 05/09/25 05/12/25 Rx gram oral powder packet (Lokelma) vitamin B complex and vitamin C 1 cap PO QAM #30 caps 05/09/25 05/12/25 Rx no.20-folic acid 1 mg capsule (Renal Caps) sertraline 25 mg tablet 25 mg PO DAILY #30 tabs 05/14/25 Rx Past Med/Surg History Problem List (Updated 05/17/25 @ 08:23 by Sher Vega MD) PRES (posterior reversible encephalopathy syndrome) Encounter for pre-operative examination Facial edema LVH (left ventricular hypertrophy) Fatigue MDD (major depressive disorder), recurrent episode, severe Pancytopenia LUQ pain Serologic abnormality Pleural effusion Constipation Thrombocytopenia Sinusitis Hemoptysis Severe uncontrolled hypertension Intractable headache Seizure Anxiety Carious teeth Impacted teeth with abnormal position ESRD on hemodialysis (Acute) Hypertension (Acute) Hypertensive emergency (Acute) Medical History Anemia Anticoagulated on Coumadin pt states he has not been taking his Coumadin since apprx mid January 2025 Cardiac murmur CKD (chronic kidney disease) Dialysis patient [facility] in [place] > tues/thurs/sat End stage renal disease follows with Dr. Woods - HD 3x per week:[facility] in [place] > es/urs/sat End stage renal disease FSGS (focal segmental glomerulosclerosis) Generalized anxiety disorder Headache History of postoperative nausea and vomiting Hx of deep venous thrombosis 01/2024 > right arm > was on warfarin > now DC'ed Hx of metabolic acidosis Hyperkalemia Hypertension recently added clonidine 0.[address] woods Nausea & vomiting New onset seizure PRES (posterior reversible encephalopathy syndrome) Thrombophilia Surgical History H/O hernia repair S/P hemodialysis catheter insertion (12/2024) perm cath for HD- right jugular S/P left knee arthroscopy Family History Mother Diabetes Grandfather (Maternal) Hypertension Other No family history of adverse response to anesthesia Denies family history of Ovarian cancer Prostate cancer Myocardial infarction Breast cancer Lung cancer Stroke Social History Smoking Status: Never smoker Tobacco Type: Smokeless Tobacco (Dip or Chew) Second Hand Exposure: No; Do You Dip or Chew Tobacco: No; Hx Alcohol Use: No Hx Substance Use: No Preferred Language: Urdu Communication Ability: Effective Visual Impairment: No Limitations Hearing Ability: Normal 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 Machine 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 Required: No Beliefs That Will Affect Care: Spiritual marital status: Single Current Living Situation: Parent Current Living Situation Comment: lives at home with family current occupational status: employed 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 How many Children do You have: 0 Feels Safe at Home: Yes Childhood Exposure to Second-Hand Smoke: No caffeine: No Dental Care, Regularly: Yes Physical Activity Frequency: 5-6 Times per Week Seatbelt Use: always Sunscreen Use: No Assistive Devices: None Review of Systems 2 Review of Systems: Constitutionalno fever or chills ENTno blurred vision, no double vision, no epistaxis, no sore throat Respiratoryno cough, no wheezing, no shortness of breath Cardiacno palpitations, no chest pain, no syncope Monserrat nausea, vomiting, diarrhea, melena, hematochezia GUno urinary retention, no urinary incontinence, no dysuria, no hematuria Musculoskeletalno joint pain, no muscle tenderness Skinno bruising, no rashes, no pruritus Neurono isolated weakness, no paresthesia, no weakness Psychno depression, no anxiety Physical Exam 2 Physical Exam: General-alert and oriented x3, no fever, no chills. Pallor noted HEENT-head atraumatic and normocephalic, pupils equal and reactive to light, extraocular muscles intact Neck-no lymphadenopathy or thyromegaly, trachea midline Chest-clear to auscultation. No rales, wheezing or rhonchi. Right upper anterior chest TDC site is not bleeding Cardiac-regular rate and rhythm, normal S1 and S2 Abdomen-normal bowel sounds, no hepatosplenomegaly Extremities-no cyanosis, clubbing, or edema Neuro-cranial nerves II through XII intact, motor and sensory function within normal limits, strength symmetrical, no focal deficits Psych-normal affect, normal mood Results & Data Results & Data Vital Signs (Past 12 Hours) Vital Signs Temp Pulse Pulse Resp BP BP Pulse Ox 05/17/25 07:30 84 12 150/82 H 93 05/17/25 07:30 79 18 150/82 H 93 05/17/25 07:00 84 19 151/91 H 93 05/17/25 06:30 84 14 154/92 H 94 05/17/25 06:00 87 17 168/104 H 96 05/17/25 05:54 96 05/17/25 05:21 93 H 05/17/25 05:15 36.5 C 90 20 198/118 H 96 05/17/25 05:15 96 O2 Del Method 05/17/25 07:30 05/17/25 07:30 Room Air 05/17/25 07:00 05/17/25 06:30 Room Air 05/17/25 06:00 Room Air 05/17/25 05:54 Room Air 05/17/25 05:21 05/17/25 05:15 Room Air 05/17/25 05:15 Room Air Laboratory Results 05/17/25 05:25 05/17/25 05:25 Code Status & VTE Plan Code Status Full code PG Care Time/CCT Total # of Minutes Spent Total Time Spent with Patient: Total time spent is greater than 50% in coordination of care (as documented) at patient's floor/unit and/or counseling patient: Coding Level of Care Code 39247 INT INP/OBS CARE Diagnoses ESRD on hemodialysis N18.6; Z99.2 Hypertension I10 PRES (posterior reversible encephalopathy syndrome) I67.83
[2025-05-17] MEDS ORDERED: LORazepam 0.5 MG TAB PO PRN (09:17)
[2025-05-17] MEDS ORDERED: ACETAMINOPHEN 325 MG TAB PO PRN (09:17)
[2025-05-17] MEDS ORDERED: Nursing to Pharmacy Communication SCH (10:00)
[2025-05-17] MEDS: MoRPHine SULFATE 2 MG/ML CARP IV STA (10:05)
[2025-05-17] MEDS: GABAPENTIN 100 MG CAP PO SCH (10:13)
[2025-05-17] MEDS: NEPHROCAPS PO SCH (10:13)
[2025-05-17] MEDS: CHOLECALCIFEROL 125 MCG (5,000 UNITS) TAB PO SCH (10:13)
[2025-05-17] MEDS: LABETALOL HCL 200 MG TAB PO SCH (10:14)
[2025-05-17] MEDS: TORSEMIDE 20 MG TAB PO SCH (10:14)
--- NOTE | 2025-05-17 11:16 | Nephrology Consultation ---
Date of Consultation May 17, 2025 Assessment & Plan (1) ESRD on hemodialysis: (2) Anemia due to chronic kidney disease: (3) Hemodialysis catheter malfunction: Plan 20-year-old male with end-stage kidney disease and hypertensive urgency, secondary to primary FSGS , admitted to the hospital after tunneled dialysis catheter spontaneously came out. Hemodynamically stable, blood pressure well- controlled. No sign of volume overload or respiratory distress. Chest x-ray unremarkable. Hemoglobin low but stable. Still makes some urine. --Vascular surgeon not available to place tunneled catheter over the weekend. Will consult Dr. Pacheco for tunneled dialysis catheter Monday. Over the weekend continue to monitor volume status and electrolyte, if any urgent need for dialysis, will need a temporary dialysis catheter however preferably will try to avoid temporary dialysis catheter. --Low potassium diet --Fluid restriction to less than 1 L/day --Continue amlodipine, clonidine, minoxidil and torsemide current dose. --Continue Renvela 1 tab 3 times daily with meals --Nephrocaps once a day --N.p.o. after midnight Monday for tunneled dialysis catheter Monday --left arm nephrology precaution Thank you for allowing me to participate in your patient's care. It was a pleasure to see Fito. History of Present Illness Reason for Consultation: ESRD, admitted after tunneled dialysis catheter spontaneously came out. Attending Physician: Sher Vega MD History of Present Illness Mr. Kvng Ramos is a 20 year-old male with past medical history significant for end-stage kidney disease, hypertension, history of recent hypertensive emergency and seizure, admitted to the hospital after he presented to the hospital with spontaneous removal of tunneled dialysis catheter. Nephrology consult requested for management of above. EMR records were reviewed in detail during patient's visit. Fito presented to ER this morning after he noticed that tunneled dialysis catheter came off spontaneously. This morning he was driving to the dialysis center as he was due for dialysis this morning. While driving he felt a warm sensation and then found out his tunneled dialysis catheter already came out. In the ER he was otherwise hemodynamically stable. There was no significant bleeding from the catheter site. Hemoglobin was low but stable. Electrolytes are acceptable. Blood pressure was well-controlled. Chest x-ray with no pulmonary vascular congestion. He did not have any shortness of breath. He still makes urine few times a day. He has been having frequent hospitalization over the last 1 and half month mainly because of hypertensive emergency, headache and episodes of seizure. During last admission MRI was negative for acute stroke but was consistent with PRES. workup for secondary hypertension repeatedly was unremarkable. Recent renal artery Doppler was negative for hemodynamically significant renal artery stenosis. Currently he is on amlodipine, clonidine, hydralazine, minoxidil and torsemide. Started having nephrotic range proteinuria since age 7, he reports overall feeling poorly. About 20 g/day. 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 A follow up biopsy obtained in September 2023 was consistent with advanced kidney disease ( glomeruli globally sclerosed; ~70% IFTA) and primary FSGS. He was started on dialysis in January 2025 via tunneled dialysis catheter. He has been getting dialysis at [facility] [place] Monday, , Monday. He is scheduled to have AV fistula next week. Fito overall feels well this morning, denies shortness of breath or chest pain. Blood pressure seem to have improved significantly. Allergies Allergy/AdvReac Type Severity Reaction Status Date / Time No Known Allergies Allergy Unknown Verified 05/17/25 08:13 Home Medications Medication Instructions Recorded Confirmed Type hydroxyzine HCl 25 mg tablet 25 mg PO TID PRN anxiety #90 tabs 11/13/24 05/17/25 Rx amlodipine 10 mg tablet 10 mg PO QAM #90 tabs 01/29/25 05/17/25 Rx calcium acetate(phosphat bind) 667 1,334 mg (2 x 667 mg) PO TIDM 90 01/29/25 05/17/25 Rx mg capsule days #540 caps cholecalciferol (vitamin D3) 125 125 mcg PO QAM #90 tabs 01/29/25 05/17/25 Rx mcg (5,000 unit) tablet Medical Marijuana 1 dose PO DIRECTED PRN Other 03/14/25 05/17/25 History clonidine 0.3 mg/24 hr weekly 0.3 mg transdermal Q7D 04/17/25 05/17/25 History transdermal patch ketoconazole 2 % topical cream 1 applic topical Q OTHER DAY PRN 04/17/25 05/17/25 History Rash torsemide 20 mg tablet 40 mg PO BID 04/17/25 05/17/25 History gabapentin 100 mg capsule 200 mg (2 x 100 mg) PO BID #120 05/09/25 05/17/25 Rx caps labetalol 200 mg tablet 400 mg (2 x 200 mg) PO TID #180 05/09/25 05/17/25 Rx tabs levetiracetam 1,000 mg tablet 1,000 mg PO DAILY #30 tabs 05/09/25 05/17/25 Rx lorazepam 0.5 mg tablet 0.5 mg PO Q12H PRN anxiety #7 tabs 05/09/25 05/17/25 Rx minoxidil 10 mg tablet 20 mg (2 x 10 mg) PO BID #120 tabs 05/09/25 05/17/25 Rx mirtazapine 15 mg tablet 15 mg PO HS #30 tabs 05/09/25 05/17/25 Rx sevelamer carbonate 800 mg tablet 800 mg PO TIDM #90 tabs 05/09/25 05/17/25 Rx sodium zirconium cyclosilicate 10 10 g PO DAILY@1900 #30 ea 05/09/25 05/17/25 Rx gram oral powder packet (Lokelma) vitamin B complex and vitamin C 1 cap PO QAM #30 caps 05/09/25 05/17/25 Rx no.20-folic acid 1 mg capsule (Renal Caps) sertraline 25 mg tablet 25 mg PO DAILY #30 tabs 05/14/25 05/17/25 Rx Patient History Medical History Anemia Anticoagulated on Coumadin pt states he has not been taking his Coumadin since apprx mid January 2025 Cardiac murmur CKD (chronic kidney disease) Dialysis patient [facility] in [place] > //mon End stage renal disease follows with Dr. Woosd - HD 3x per week:[facility] in [place] > //mon End stage renal disease FSGS (focal segmental glomerulosclerosis) Generalized anxiety disorder Headache History of postoperative nausea and vomiting Hx of deep venous thrombosis 01/2024 > right arm > was on warfarin > now DC'ed Hx of metabolic acidosis Hyperkalemia Hypertension recently added clonidine 0.[address] woods Nausea & vomiting New onset seizure PRES (posterior reversible encephalopathy syndrome) Thrombophilia Surgical History H/O hernia repair S/P hemodialysis catheter insertion (12/2024) perm cath for HD- right jugular S/P left knee arthroscopy Family History Mother Diabetes Grandfather (Maternal) Hypertension Other No family history of adverse response to anesthesia Denies family history of Ovarian cancer Prostate cancer Myocardial infarction Breast cancer Lung cancer Stroke Social History Smoking Status: Never smoker Tobacco Type: Smokeless Tobacco (Dip or Chew) Second Hand Exposure: No; Do You Dip or Chew Tobacco: No; Hx Alcohol Use: No Hx Substance Use: Yes Last Used Substance: Unknown Last Used Substance Other:: 2 days Substance Use Type Other:: has card Preferred Language: Vincentian Communication Ability: Effective Visual Impairment: No Limitations Hearing Ability: Normal Lockstitcher Required: Yes Beliefs That Will Affect Care: None marital status: Single Current Living Situation: Family Current Living Situation Comment: lives at home with family current occupational status: employed 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 How many Children do You have: 0 Feels Safe at Home: Yes Childhood Exposure to Second-Hand Smoke: No caffeine: No Dental Care, Regularly: Yes Physical Activity Frequency: 5-6 Times per Week Seatbelt Use: always Sunscreen Use: No Assistive Devices: None Review of Systems Review of Systems: All systems reviewed & are unremarkable except as noted in Subjective Physical Exam Constitutional: WD/WN, vitals as above no acute distress Eyes: + anicteric sclerae Neck: normal visual inspection Respiratory: no respiratory distress Auscultation: lungs clear to auscultation bilaterally Cardiovascular: Rate/Rhythm: regular rate and regular rhythm Heart Sounds: normal S1 and normal S2 Rt chest with no bleeding, dressing on at the previous tunneled dialysis catheter site. Gastrointestinal (Abdomen): Inspection/Auscultation: abdomen normal to inspection Musculoskeletal: Extremities: extremities normal to inspection Neurologic: no focal motor deficits Psychiatric: Orientation: alert and oriented x 3 Affect: euthymic affect Results & Data Vital Signs (Past 12 Hours) Vital Signs Temp Pulse Pulse Resp BP BP Pulse Ox 05/17/25 09:48 83 05/17/25 09:19 36.3 C L 74 18 133/74 97 05/17/25 09:13 78 14 138/77 94 05/17/25 08:30 12 138/77 95 05/17/25 08:00 81 12 152/77 H 05/17/25 07:30 150/82 H 05/17/25 07:30 84 12 150/82 H 93 05/17/25 07:30 79 18 150/82 H 93 05/17/25 07:00 84 19 151/91 H 93 05/17/25 06:30 84 14 154/92 H 94 05/17/25 06:00 87 17 168/104 H 96 05/17/25 05:54 96 05/17/25 05:21 93 H 05/17/25 05:15 36.5 C 90 20 198/118 H 96 05/17/25 05:15 96 O2 Del Method 05/17/25 09:48 05/17/25 09:19 Room Air 05/17/25 09:13 Room Air 05/17/25 08:30 Room Air 05/17/25 08:00 05/17/25 07:30 05/17/25 07:30 05/17/25 07:30 Room Air 05/17/25 07:00 05/17/25 06:30 Room Air 05/17/25 06:00 Room Air 05/17/25 05:54 Room Air 05/17/25 05:21 05/17/25 05:15 Room Air 05/17/25 05:15 Room Air PG Care Time/CCT Total # of Minutes Spent Total Time Spent with Patient: Total time spent is greater than 50% in coordination of care (as documented) at patient's floor/unit and/or counseling patient: Coding Level of Care Code 22397 INT INP/OBS CARE 3/75MIN Diagnoses ESRD on hemodialysis N18.6; Z99.2 Anemia due to chronic kidney disease N18.9; D63.1 Hemodialysis catheter malfunction T82.41XA
--- NOTE | 2025-05-17 11:59 | Electrocardiogram Report ---
Test Reason : Blood Pressure : */* mmHG Vent. Rate : 80 BPM Atrial Rate : 80 BPM P-R Int : 152 ms QRS Dur : 104 ms QT Int : 408 ms P-R-T Axes : 59 64 54 degrees QTcB Int : 470 ms Normal sinus rhythm Possible Left atrial enlargement Poor R wave progression, consider anterior [place] vs. lead placement vs. LVH Abnormal ECG When compared with ECG of 30-Apr-2025 13:46, Nonspecific T wave abnormality now evident in Lateral leads Confirmed by Neal Patel [id number]) on 05/17/2025 11:59:12 AM Referred By: REFERRED SELF Confirmed By: Neal Patel
[2025-05-17] MEDS: CALCIUM ACETATE 667 MG CAP/TAB PO SCH (12:14)
[2025-05-17] MEDS: SEVELAMER CARBONATE 800 MG TAB PO SCH (12:14)
[2025-05-17] MEDS: MoRPHine SULFATE 2 MG/ML CARP IV PRN (14:31)
[2025-05-17] MEDS: CHECK CLONIDINE PATCH PLACEMENT SCH (15:55)
[2025-05-17] MEDS: SODIUM ZIRCONIUM CYCLOSILICATE 10 GM PACKET PO SCH (19:16)
[2025-05-17] MEDS: MIRTAZAPINE TAB 15 MG TAB PO SCH (20:41)
[2025-05-17] MEDS: SERTRALINE HCL 50 MG TABLET PO SCH ×2 (20:41→20:48)
[2025-05-17] MEDS: REMOVE CLONIDINE PATCH SCH (20:47)
[2025-05-17] MEDS ORDERED: SERTRALINE HCL 50 MG TABLET PO SCH (21:00)
[2025-05-18 06:33] LABS: Hematocrit (blood only) 23.2 % (42.0-52.0); Hemoglobin 8.0 g/dl (14.0-18.0); Immature Granulocytes # (auto) 0.01 K/uL (0.01-0.20); Immature Granulocytes % (auto) 0.3 %; Mean Corpuscular Hemoglobin 29.7 pg (25.0-34.0); Mean Corpuscular Volume 86.2 fL (80.0-100.0); Platelet Count 83 K/uL (130-400); RDW Standard Deviation 47.6 fL (36.4-46.3); Red Blood Count 2.69 M/uL (4.70-6.10); White Blood Count 3.50 K/ul (4.8-10.8)
[2025-05-18 07:02] LABS: Anion Gap 15.0 (3-11); Blood Urea Nitrogen 84.0 mg/dl (6-23); Calcium 9.1 mg/dl (8.6-10.3); Carbon Dioxide 30.0 mmol/L (21-32); Chloride 97.0 mmol/L (98-107); Creatinine Clr Calc Pharmacy 9.1 ml/min; Glucose 102.0 mg/dl (70-99(Fasting)); Potassium 4.5 mmol/L (3.5-5.1); Sodium 142.0 mmol/L (136-145)
--- NOTE | 2025-05-18 10:17 | Nephrology Progress Note ---
Date of Service May 18, 2025 Assessment & Plan (1) ESRD on hemodialysis: (2) Hypertension: (3) Anemia due to chronic kidney disease: (4) History of removal of dialysis catheter: Plan 20-year-old male with end-stage kidney disease and hypertensive urgency, secondary to primary FSGS , admitted to the hospital after tunneled dialysis catheter spontaneously came out. Hemodynamically stable, blood pressure well- controlled. No sign of volume overload or respiratory distress. Chest x-ray unremarkable. Hemoglobin low but stable. Still makes some urine. Clinically stable, volume status and respite status acceptable. Blood pressure fair. Electrolyte acceptable. Otherwise asymptomatic. --Plan for tunneled dialysis catheter tomorrow morning and then hemodialysis for 4 hours. --Low potassium diet. --Fluid restriction to less than 1 L/day --Continue amlodipine, clonidine, minoxidil and torsemide current dose. --Continue Renvela 1 tab 3 times daily with meals --Nephrocaps once a day --N.p.o. after midnight Monday for tunneled dialysis catheter Monday morning --left arm nephrology precaution Admission and Anticipated Discharge Date Admission Date: May 17, 2025 Dimas Payton was seen and evaluated this morning. He reports overall feeling well. No shortness of breath or chest pain. Blood pressure remained fairly controlled. Volume status acceptable. Lab was notable for normal electrolyte, potassium 4.7. Hemoglobin 8.0. Review of Systems Review of Systems: All systems reviewed & are unremarkable except as noted in Subjective Physical Exam Constitutional: WD/WN, vitals as above no acute distress Eyes: + anicteric sclerae Respiratory: no respiratory distress Auscultation: lungs clear to auscultation bilaterally Cardiovascular: Rate/Rhythm: regular rate and regular rhythm Heart Sounds: normal S1 and normal S2 Rt chest with no bleeding, dressing on at the previous tunneled dialysis catheter site. Musculoskeletal: Extremities: extremities normal to inspection Neurologic: no focal motor deficits Psychiatric: Orientation: alert and oriented x 3 Affect: euthymic affect Results & Data Vital Signs (Past 12 Hours) Vital Signs Temp Pulse Pulse Resp BP Pulse Ox O2 Del Method 05/18/25 07:38 36.5 C 87 20 151/78 H 93 Room Air 05/18/25 07:22 80 05/18/25 03:28 36.3 C L 73 20 136/77 92 Room Air 05/17/25 23:45 36.4 C L 71 20 150/84 H 94 Room Air PG Care Time/CCT Total # of Minutes Spent Total Time Spent with Patient: Total time spent is greater than 50% in coordination of care (as documented) at patient's floor/unit and/or counseling patient: Coding Level of Care Code 46085 SUB INP/OBS CARE 2/35MIN Diagnoses ESRD on hemodialysis N18.6; Z99.2 Hypertension I10 Anemia due to chronic kidney disease N18.9; D63.1 History of removal of dialysis catheter Z98.890
[2025-05-18] MEDS: NEOMYCIN/POLYMYX/BACITR OINT 15 GM TUBE EXT SCH (10:18)
--- NOTE | 2025-05-18 10:52 | Hospitalist Progress Note ---
Date of Service May 18, 2025 Assessment & Plan (1) ESRD on hemodialysis: Plan: The patient's right upper chest temporary dialysis catheter came out 05/17. Chest x-ray reveals no pneumothorax. Hemostasis has been currently achieved. Nephrology consultation and recommendations appreciated. Tunneled dialysis catheter will be placed tomorrow, May 19 followed by hemodialysis. (2) Hypertension: Plan: Controlled with amlodipine, clonidine, labetalol, minoxidil (3) PRES (posterior reversible encephalopathy syndrome): Plan: Recent hospitalization for PRES associated with seizure activity. Now controlled Plan Tunneled dialysis catheter will be placed tomorrow, May 19 followed by hemodialysis session. Hopefully he can go home later in the day tomorrow, May 19 Admission and Anticipated Discharge Date Admission Date: May 17, 2025 Subjective Alert and oriented. Stable overall. Case discussed with nephrology. Anticipate placement of tunneled dialysis catheter by vascular surgery tomorrow, May 19, followed by hemodialysis. He might be able to be discharged late tomorrow. Platelet count is on the low side but acceptable. Creatinine 14.6 todayMay 18 Review of Systems 2 Review of Systems: Constitutionalno fever or chills ENTno blurred vision, no double vision, no epistaxis, no sore throat Respiratoryno cough, no wheezing, no shortness of breath Cardiacno palpitations, no chest pain, no syncope Monserrat nausea, vomiting, diarrhea, melena, hematochezia GUno urinary retention, no urinary incontinence, no dysuria, no hematuria Musculoskeletalno joint pain, no muscle tenderness Skinno bruising, no rashes, no pruritus Neurono isolated weakness, no paresthesia, no weakness Psychno depression, no anxiety Physical Exam 2 Physical Exam: General-alert and oriented x3, no fever, no chills. Pallor noted HEENT-head atraumatic and normocephalic, pupils equal and reactive to light, extraocular muscles intact Neck-no lymphadenopathy or thyromegaly, trachea midline Chest-clear to auscultation. No rales, wheezing or rhonchi. Right upper anterior chest TDC site is not bleeding Cardiac-regular rate and rhythm, normal S1 and S2 Abdomen-normal bowel sounds, no hepatosplenomegaly Extremities-no cyanosis, clubbing, or edema Neuro-cranial nerves II through XII intact, motor and sensory function within normal limits, strength symmetrical, no focal deficits Psych-normal affect, normal mood Results & Data Results & Data Vital Signs (Past 12 Hours) Vital Signs Temp Pulse Pulse Resp BP Pulse Ox O2 Del Method 05/18/25 07:38 36.5 C 87 20 151/78 H 93 Room Air 05/18/25 07:22 80 05/18/25 03:28 36.3 C L 73 20 136/77 92 Room Air 05/17/25 23:45 36.4 C L 71 20 150/84 H 94 Room Air Laboratory Results 05/18/25 06:08 05/18/25 06:08 PG Care Time/CCT Total # of Minutes Spent Total Time Spent with Patient: Total time spent is greater than 50% in coordination of care (as documented) at patient's floor/unit and/or counseling patient: Coding Level of Care Code 37189 SUB INP/OBS CARE 2/35MIN Diagnoses ESRD on hemodialysis N18.6; Z99.2 Hypertension I10 PRES (posterior reversible encephalopathy syndrome) I67.83
[2025-05-18] MEDS: CALCIUM ACETATE 667 MG CAP/TAB PO SCH (17:30)
[2025-05-19 07:15] LABS: Hematocrit (blood only) 23.3 % (42.0-52.0); Hemoglobin 8.0 g/dl (14.0-18.0); Immature Granulocytes # (auto) 0.01 K/uL (0.01-0.20); Immature Granulocytes % (auto) 0.2 %; Mean Corpuscular Hemoglobin 29.6 pg (25.0-34.0); Mean Corpuscular Volume 86.3 fL (80.0-100.0); Platelet Count 89 K/uL (130-400); RDW Standard Deviation 47.3 fL (36.4-46.3); Red Blood Count 2.70 M/uL (4.70-6.10); White Blood Count 4.50 K/ul (4.8-10.8)
[2025-05-19 07:49] LABS: Anion Gap 17.0 (3-11); Blood Urea Nitrogen 102.0 mg/dl (6-23); Calcium 9.1 mg/dl (8.6-10.3); Carbon Dioxide 29.0 mmol/L (21-32); Chloride 94.0 mmol/L (98-107); Creatinine Clr Calc Pharmacy 7.7 ml/min; Glucose 88.0 mg/dl (70-99(Fasting)); Potassium 5.2 mmol/L (3.5-5.1); Sodium 140.0 mmol/L (136-145)
--- NOTE | 2025-05-19 08:42 | Consultation ---
Date of Consultation May 19, 2025 Assessment & Plan (1) End stage renal disease on dialysis: Pt on HD, currently without access. Planning on permcath insertion later this AM. Procedure, risks, benefits and alternatives discussed wt pt by myself at Dr Pacheco's request. Pt expresses understanding and agreement to proceed. Pt also scheduled for AVF creation in OR on MON as outpt and still wishes to proceed with this as well. History of Present Illness Reason for Consultation: need permcath Attending Physician: Alanna Felix MD History of Present Illness 20 yo m with hx of ESRD on HD, HTN, anemia, anxiety, seizure, admitted after his permcath fell out 3 days ago, seen in consultation today for permcath insertion. Pt states his permcath has been working without any problems, but did feel that it seemed longer over the past [address] weeks[address] on his way to HD 3 days ago, his permcath fell out of his chest. States he had mild bleeding, but not severe. Has had some tenderness over the site since it fell out. Denies JUAREZ, fever, chest pain, SOB, abd pain, N/V, rest pain, claudication, other complaints. Allergies Allergy/AdvReac Type Severity Reaction Status Date / Time No Known Allergies Allergy Unknown Verified 05/17/25 08:13 Home Medications Medication Instructions Recorded Confirmed Type hydroxyzine HCl 25 mg tablet 25 mg PO TID PRN anxiety #90 tabs 11/13/24 05/17/25 Rx amlodipine 10 mg tablet 10 mg PO QAM #90 tabs 01/29/25 05/17/25 Rx calcium acetate(phosphat bind) 667 1,334 mg (2 x 667 mg) PO TIDM 90 01/29/25 05/17/25 Rx mg capsule days #540 caps cholecalciferol (vitamin D3) 125 125 mcg PO QAM #90 tabs 01/29/25 05/17/25 Rx mcg (5,000 unit) tablet Medical Marijuana 1 dose PO DIRECTED PRN Other 03/14/25 05/17/25 History clonidine 0.3 mg/24 hr weekly 0.3 mg transdermal Q7D 04/17/25 05/17/25 History transdermal patch ketoconazole 2 % topical cream 1 applic topical Q OTHER DAY PRN 04/17/25 05/17/25 History Rash torsemide 20 mg tablet 40 mg PO BID 04/17/25 05/17/25 History gabapentin 100 mg capsule 200 mg (2 x 100 mg) PO BID #120 05/09/25 05/17/25 Rx caps labetalol 200 mg tablet 400 mg (2 x 200 mg) PO TID #180 05/09/25 05/17/25 Rx tabs levetiracetam 1,000 mg tablet 1,000 mg PO DAILY #30 tabs 05/09/25 05/17/25 Rx lorazepam 0.5 mg tablet 0.5 mg PO Q12H PRN anxiety #7 tabs 05/09/25 05/17/25 Rx minoxidil 10 mg tablet 20 mg (2 x 10 mg) PO BID #120 tabs 05/09/25 05/17/25 Rx mirtazapine 15 mg tablet 15 mg PO HS #30 tabs 05/09/25 05/17/25 Rx sevelamer carbonate 800 mg tablet 800 mg PO TIDM #90 tabs 05/09/25 05/17/25 Rx sodium zirconium cyclosilicate 10 10 g PO DAILY@1900 #30 ea 05/09/25 05/17/25 Rx gram oral powder packet (Lokelma) vitamin B complex and vitamin C 1 cap PO QAM #30 caps 05/09/25 05/17/25 Rx no.20-folic acid 1 mg capsule (Renal Caps) sertraline 25 mg tablet 25 mg PO DAILY #30 tabs 05/14/25 05/17/25 Rx Patient History Medical History PRES (posterior reversible encephalopathy syndrome) New onset seizure Hyperkalemia Nausea & vomiting Headache End stage renal disease Hx of metabolic acidosis Anticoagulated on Coumadin pt states he has not been taking his Coumadin since apprx mid January 2025 Dialysis patient [facility] in [place] > //mon History of postoperative nausea and vomiting Hx of deep venous thrombosis 01/2024 > right arm > was on warfarin > now DC'ed Cardiac murmur Anemia FSGS (focal segmental glomerulosclerosis) Generalized anxiety disorder Thrombophilia End stage renal disease follows with Dr. Woods - HD 3x per week:[facility] in [place] > //sat CKD (chronic kidney disease) Hypertension recently added clonidine 0.[address] woods Surgical History S/P hemodialysis catheter insertion (12/2024) perm cath for HD- right jugular S/P left knee arthroscopy H/O hernia repair Family History Mother Diabetes Grandfather (Maternal) Hypertension Other No family history of adverse response to anesthesia Denies family history of Ovarian cancer Prostate cancer Myocardial infarction Breast cancer Lung cancer Stroke Social History Smoking Status: Never smoker Tobacco Type: Smokeless Tobacco (Dip or Chew) Second Hand Exposure: No; Do You Dip or Chew Tobacco: No; Hx Alcohol Use: No Hx Substance Use: Yes Last Used Substance: Unknown Last Used Substance Other:: 2 days Substance Use Type Other:: has card Preferred Language: Pashto Communication Ability: Effective Visual Impairment: No Limitations Hearing Ability: Normal Patient Portal Concierge Required: Yes Beliefs That Will Affect Care: None marital status: Single Current Living Situation: Family Current Living Situation Comment: lives at home with family current occupational status: employed 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 How many Children do You have: 0 Feels Safe at Home: Yes Childhood Exposure to Second-Hand Smoke: No caffeine: No Dental Care, Regularly: Yes Physical Activity Frequency: 5-6 Times per Week Seatbelt Use: always Sunscreen Use: No Assistive Devices: None Review of Systems Review of Systems: All systems reviewed & are unremarkable except as noted in HPI & below Physical Exam Constitutional: WD/WN, vitals as above cooperative, comfortable and + edematous; not in distress ENMT: Ears: no hearing impairment Neck: trachea midline Respiratory: normal respiratory effort, lungs clear to auscultation Auscultation: + diminished lung sounds Cardiovascular: Rate/Rhythm: regular rate and regular rhythm Vessels: posterior tibial pulses present, dorsalis pedis pulses present and radial pulses present; + abnormal peripheral pulses Extremities: normal capillary refill Chest (Breasts): Additional Comments: R chest exit site mildly tender, mild edema. No erythema, bleeding or discharge. Gastrointestinal (Abdomen): Inspection/Auscultation: abdomen normal to inspection and normal bowel sounds Percussion/Palpation: abdomen soft; abdomen nontender Musculoskeletal: no cyanosis or clubbing, extremities motor strength 5/5 Skin: no rashes, warm and dry Neurologic: moves all extremities and awake; no focal motor deficits and not confused Psychiatric: A+Ox3, euthymic affect Results & Data Vital Signs (Past 12 Hours) Vital Signs Temp Pulse Pulse Resp BP Pulse Ox O2 Del Method 05/19/25 08:28 36.5 C 86 16 147/77 H 92 Nasal Cannula 05/19/25 07:28 76 05/19/25 03:28 36.7 C 80 16 149/73 H 94 Nasal Cannula 05/18/25 23:36 36.7 C 87 16 147/75 H 95 Nasal Cannula 05/18/25 23:36 95 H 05/18/25 20:50 85 146/78 H O2 Flow Rate 05/19/25 08:28 2 05/19/25 07:28 05/19/25 03:28 2 05/18/25 23:36 2 05/18/25 23:36 05/18/25 20:50
--- NOTE | 2025-05-19 10:00 | Nephrology Progress Note ---
Date of Service May 19, 2025 Assessment & Plan (1) ESRD on hemodialysis: (2) Hypertension: (3) Anemia due to chronic kidney disease: (4) History of removal of dialysis catheter: Plan 20-year-old male with end-stage kidney disease and hypertensive urgency, secondary to primary FSGS , admitted to the hospital after tunneled dialysis catheter spontaneously came out. Hemodynamically stable, blood pressure well- controlled. No sign of volume overload or respiratory distress. Chest x-ray unremarkable. Hemoglobin low but stable. Still makes some urine. Clinically stable, volume status acceptable. K 5.2. Blood pressure fair. Otherwise asymptomatic. --Plan for tunneled dialysis catheter this morning and then hemodialysis for 4 hours. Then HD tomorrow as regular schedule. --Low potassium diet. --Fluid restriction to less than 1 L/day --Continue amlodipine, clonidine, minoxidil and torsemide current dose. --Continue Renvela 1 tab 3 times daily with meals --Nephrocaps once a day --left arm nephrology precaution Admission and Anticipated Discharge Date Admission Date: May 17, 2025 Subjective Fito was seen and evaluated this morning. No shortness of breath or chest pain. Blood pressure fair. Volume status acceptable. Potassium 5.2 Review of Systems Review of Systems: All systems reviewed & are unremarkable except as noted in Subjective Physical Exam Constitutional: WD/WN, vitals as above no acute distress Eyes: + anicteric sclerae Neck: normal visual inspection Respiratory: no respiratory distress Auscultation: lungs clear to auscultation bilaterally Cardiovascular: RRR, no murmur, no edema Extremities: no edema Musculoskeletal: Extremities: extremities normal to inspection Neurologic: no focal motor deficits Psychiatric: Orientation: alert and oriented x 3 Affect: euthymic affect Results & Data Vital Signs (Past 12 Hours) Vital Signs Temp Pulse Pulse Pulse Resp BP Pulse Ox 05/19/25 09:28 36.5 C 79 20 153/90 H 97 05/19/25 08:28 36.5 C 86 16 147/77 H 92 05/19/25 07:28 76 05/19/25 03:28 36.7 C 80 16 149/73 H 94 05/18/25 23:36 36.7 C 87 16 147/75 H 95 05/18/25 23:36 95 H O2 Del Method O2 Flow Rate 05/19/25 09:28 Room Air 05/19/25 08:28 Nasal Cannula 2 05/19/25 07:28 05/19/25 03:28 Nasal Cannula 2 05/18/25 23:36 Nasal Cannula 2 05/18/25 23:36 PG Care Time/CCT Total # of Minutes Spent Total Time Spent with Patient: Total time spent is greater than 50% in coordination of care (as documented) at patient's floor/unit and/or counseling patient: Coding Level of Care Code 14639 SUB INP/OBS CARE 235MIN Diagnoses ESRD on hemodialysis N18.6; Z99.2 Hypertension I10 Anemia due to chronic kidney disease N18.9; D63.1 History of removal of dialysis catheter Z98.890
[2025-05-19] MEDS: MIDAZOLAM HCL 1 MG/ML 2ML VIAL ONE (12:15)
--- NOTE | 2025-05-19 12:15 | Pre Anesthesia Assessment ---
Date of Service May 19, 2025 Pre Sedation Assessment Vital Signs Temp Pulse Pulse Pulse Resp BP Pulse Ox 05/19/25 12:07 81 16 139/80 99 05/19/25 09:28 36.5 C 79 20 153/90 H 97 05/19/25 08:28 36.5 C 86 16 147/77 H 92 05/19/25 07:28 76 05/19/25 03:28 36.7 C 80 16 149/73 H 94 05/18/25 23:36 36.7 C 87 16 147/75 H 95 05/18/25 23:36 95 H 05/18/25 20:50 85 146/78 H 05/18/25 19:42 36.9 C 86 18 142/82 H 96 05/18/25 19:34 05/18/25 15:56 87 05/18/25 15:55 36.8 C 83 18 142/75 H 96 05/18/25 14:35 91 H 146/74 H O2 Del Method O2 Flow Rate 05/19/25 12:07 Oxymask 4 05/19/25 09:28 Room Air 05/19/25 08:28 Nasal Cannula 2 05/19/25 07:28 05/19/25 03:28 Nasal Cannula 2 05/18/25 23:36 Nasal Cannula 2 05/18/25 23:36 05/18/25 20:50 05/18/25 19:42 Room Air 05/18/25 19:34 Room Air 05/18/25 15:56 05/18/25 15:55 Room Air 05/18/25 14:35 Cardiovascular RRR, no murmur, no edema Respiratory normal respiratory effort, lungs clear to auscultation Pre-Sedation Airway Assessment Smoking Status: Never smoker Short, Thick Neck: No Thyromental Distance: > or= 3.5 Finger Breadths Oral Cavity: + WNL Mallampati Class: III ASA: ASA3 NPO Status Date of Last Intake of Fluids: 05/18/25 Time of Last Intake of Fluids: 23:00 Date of Last Intake of Solid Food: 05/18/25 Time of Last Intake of Solid Foods: 23:00 Procedure Planning Contraindications for Sedation: none Current Medications Reviewed: Yes Notes The planned sedation has been discussed with the patient. Informed Consent was obtained. I have identified the patient, determined the appropriateness of sedation and have assessed the patient immediately prior to the procedure. All medicine(s) and interventions are by my order.
--- NOTE | 2025-05-19 12:47 | Operative Report ---
Post Operative Report Pre & Post Diagnosis Operation Date: 05/19/25 13:40 Pre-Op Diagnosis: End Stage Renal Disease Post-Op Diagnosis: End Stage Renal Disease I identified the patient and participated in the time-out.: Yes Procedure Operation Date: 05/19/25 13:40 Actual Procedures p Perm Catheter Insertion, Right Internal Jugular Approach, Ultrasound Loca lization of Right Internal Jugular Vein, Fluoroscopy for Positioning, Moderate Sedation [id number] 1250(Right) - Andres Pacheco MD Surgeon Andres Pacheco MD Gate Tender Mady Johnson-MD Gio Estimated Blood Loss 10 Findings See Below Permcath appeared well positioned on completion angiogram. Both ports aspirated and flushed easily at conclusion of the case. Specimens None Anesthesia Type RN Sedation Complications None Indications 20 year old male with end stage renal disease on hemodialysis requiring Permcath placement for dialysis. Description of Procedure Patient was taken to the angio suite and placed in the supine position. The right side of the neck and chest wall were prepped and draped in a sterile manner. Local anesthesia was then administered to the appropriate areas of the neck and chest wall. Ultrasound was then used to locate the right internal jugular vein. The vein compressed easily, had no filling defects, and was patent. The vein was then punctured under direct ultrasound imaging. A debra dewire was then passed centrally under fluoroscopic imaging. A stab wound was then made in the anterior chest wall and a 19 cm permcath was passed from the stab wound on the chest wall to the puncture site on the neck. The puncture site was then dilated till the 14Fr peel away sheath was inserted. The permcath was then inserted through the sheath to a central position in the distal superior vena cava. The peel away sheath was then removed. The catheter was then sutured in place using nylon sutures. The puncture was then closed using a 4-0 Vicryl subcuticular suture. Dermabond was used for a dressing on the puncture site. Both ports aspirated and flushed easily and were then packed with heparin. A sterile dressing was applied to the catheter. The patient left the angio suite in good condition and tolerated the procedure well. Dr Pacheco was present for all critical portions of the case. I attest to the content of the Intraoperative Record and any orders documented therein. Any exceptions are noted below.
--- NOTE | 2025-05-19 12:47 | Post Operative Brief Note ---
Immediate Post Op Note Date of Surgery May 19, 2025 Pre & Post Diagnosis Operation Date: 05/19/25 13:40 Pre-Op Diagnosis: End Stage Renal Disease Post-Op Diagnosis: End Stage Renal Disease I identified the patient and participated in the time-out.: Yes Procedure Operation Date: 05/19/25 13:40 Actual Procedures p Perm Catheter Insertion, Right Internal Jugular Approach, Ultrasound Localization of Right Internal Jugular Vein, Fluoroscopy for Positioning, Moderate Sedation [id number](Right) - Andres Pacheco MD Surgeon Andres Pacheco MD Medication Coordinator MD Miracle Estimated Blood Loss 10 Findings Consistent with Post-Op Diagnosis Anesthesia Type RN Sedation Complications none Disposition Accompanied Patient To Recovery: No Disposition: Recovery Room
--- NOTE | 2025-05-19 12:53 | Post Anesthesia Assessment ---
Date of Service May 19, 2025 Post Sedation Assessment Vital Signs Temp Pulse Pulse Pulse Resp BP Pulse Ox 05/19/25 12:50 80 16 155/82 H 100 05/19/25 12:45 77 16 144/85 H 100 05/19/25 12:40 74 16 155/91 H 100 05/19/25 12:35 72 18 165/98 H 100 05/19/25 12:30 75 18 166/93 H 100 05/19/25 12:25 73 18 166/103 H 100 05/19/25 12:20 77 20 164/102 H 100 05/19/25 12:15 76 16 161/97 H 100 05/19/25 12:07 81 16 139/80 99 05/19/25 09:28 36.5 C 79 20 153/90 H 97 05/19/25 08:28 36.5 C 86 16 147/77 H 92 05/19/25 08:15 05/19/25 07:28 76 05/19/25 03:28 36.7 C 80 16 149/73 H 94 05/18/25 23:36 36.7 C 87 16 147/75 H 95 05/18/25 23:36 95 H 05/18/25 20:50 85 146/78 H 05/18/25 19:42 36.9 C 86 18 142/82 H 96 05/18/25 19:34 05/18/25 15:56 87 05/18/25 15:55 36.8 C 83 18 142/75 H 96 05/18/25 14:35 91 H 146/74 H O2 Del Method O2 Flow Rate 05/19/25 12:50 Oxymask 4 05/19/25 12:45 Oxymask 4 05/19/25 12:40 Oxymask 4 05/19/25 12:35 Oxymask 4 05/19/25 12:30 Oxymask 4 05/19/25 12:25 Oxymask 4 05/19/25 12:20 Oxymask 4 05/19/25 12:15 Oxymask 4 05/19/25 12:07 Oxymask 4 05/19/25 09:28 Room Air 05/19/25 08:28 Nasal Cannula 2 05/19/25 08:15 Nasal Cannula 2 05/19/25 07:28 05/19/25 03:28 Nasal Cannula 2 05/18/25 23:36 Nasal Cannula 2 05/18/25 23:36 05/18/25 20:50 05/18/25 19:42 Room Air 05/18/25 19:34 Room Air 05/18/25 15:56 05/18/25 15:55 Room Air 05/18/25 14:35 Recovery Score Activity: Moves 4 extremities Respiration: Deep Breath/Cough Circulation: +/-20% PreAnes Value Consciousness: Fully Awake Oxygen Saturation: O2 needed for >90% Post Anesthesia Score: 9 Discharge Sedation Level of Care: Fast Track Phase II Post Sedation Plan On clinical assessment, the patient appears to have tolerated the sedation without complications. Patient is recovering as anticipated. Patient will continue to be monitored by nursing and may be discharged when sedation discharge criteria are met per below protocol. Upon Completions of procedure up to 15 minutes continue every 5 minute vital signs and the P.A.R. score; then discharge to a Phase I or Fast Track to Phase II per the following guidelines: * Discharge Patient to appropriate Phase II area if PAR is 8 or greater or return to pre- procedure baseline. The post - procedure orders will be as directed. * If PAR score is less than 8 or not return to pre-procedure baseline then patient will follow Phase I monitoring till PAR is reached for Phase II. The Phase I may be done in procedure room or may call to secure a Phase I area. * If naloxone or flumazenil are used for reversal, hold in Phase I for continued monitoring from when last reversal dose was given for a minimum of 60 minutes or longer pending the nurse and/or physician discretion of patient condition before discharge to Phase II. Please call the Sedation Physician to re-evaluate and complete post-note for discharge to Phase II area. Do NOT discharge from procedure sedation or Phase 1 until post- sedation evaluation note is complete by procedure /sedation MD Sedation Discharge Instructions to be given to the patient at discharge to home.
[2025-05-19] MEDS: EPOETIN ALFA 10,000 UNITS/ML VIAL IV ONE (13:10)
[2025-05-19] MEDS: HYDROmorphone INJ 0.5 MG/0.5 ML SYR IV STA (16:18)
--- NOTE | 2025-05-19 18:19 | Hospitalist Progress Note ---
Date of Service May 19, 2025 Assessment & Plan (1) ESRD on hemodialysis: Plan: The patient's right upper chest temporary dialysis catheter came out 05/17. Chest x-ray reveals no pneumothorax. Hemostasis has been currently achieved. Nephrology consultation and recommendations appreciated. Tunneled dialysis catheter placed 05/[address] Pacheco. Follow up for AVF -post procedure significant pain - ordered hydromorphone 0.5 mg IV q3h and oxycodone 10 mg q3h PRN pain, scheduled APAP HD for 4h following that. HD due tomorrow as well. Home tomorrow - pain not controlled yet tonight. (2) Hypertension: Plan: Controlled with amlodipine, clonidine, labetalol, minoxidil -BP not at goal <140 getnerally but much better than several weeks ago -continue same -has referral to [facility] for refractory HTN / renal denervation (3) PRES (posterior reversible encephalopathy syndrome): Plan: Recent hospitalization for PRES associated with seizure activity. Now controlled Continue keppra 3 mo Plan Pancytopenia - recent BM Bx was hypocellular, karyotype and genetics normal. Dr Guevara thought possibly from splenomegaly HSM - cause not known. Tests for kappa/lambda, OC level, Fabry's normal. asymmetric cardiomyopathy - working with outpatient to confirm referral for cardiac MRI Admission and Anticipated Discharge Date Admission Date: May 17, 2025 Subjective Seen prior to line change. Was actually feeling really well prior to this happening BP has been 140-150s systolic Headaches much less of a problem, gabapentin still helping but having jerking tremors today Physical Exam 2 Physical Exam: Last 24h vitals reviewed GEN: no acute distress, sitting in bed HEENT: pupils equal, sclerae anicteric, moist MM RESP: normal WOB, CTAB CV: reg no mrg Rt upper chest - HD cath is out, dressed, no bleeding ABD: soft/nt/nd +BT : no conley SKIN: warm and dry, no generalized rashes NEURO: AOx person, place, and situation. Face symmetric, speech normal, moves 4 ext spontaneously and equally Results & Data Results & Data Vital Signs (Past 12 Hours) Vital Signs Temp Pulse Pulse Pulse Resp BP BP 05/19/25 17:08 37.0 C 89 133/67 05/19/25 17:05 89 158/76 H 05/19/25 17:00 87 158/78 H 05/19/25 16:00 87 156/80 H 05/19/25 15:30 85 148/75 H 05/19/25 15:00 80 152/65 H 05/19/25 14:30 78 140/70 05/19/25 14:00 77 124/58 L 05/19/25 13:30 77 115/58 L 05/19/25 13:05 76 133/67 05/19/25 13:00 36.8 C 76 05/19/25 12:50 80 16 155/82 H 05/19/25 12:45 77 16 144/85 H 05/19/25 12:40 74 16 155/91 H 05/19/25 12:35 72 18 165/98 H 05/19/25 12:30 75 18 166/93 H 05/19/25 12:25 73 18 166/103 H 05/19/25 12:20 77 20 164/102 H 05/19/25 12:15 76 16 161/97 H 05/19/25 12:07 81 16 139/80 05/19/25 09:28 36.5 C 79 20 153/90 H 05/19/25 08:28 36.5 C 86 16 147/77 H 05/19/25 08:15 05/19/25 07:28 76 Pulse Ox O2 Del Method O2 Flow Rate 05/19/25 17:08 05/19/25 17:05 05/19/25 17:00 05/19/25 16:00 05/19/25 15:30 05/19/25 15:00 05/19/25 14:30 05/19/25 14:00 05/19/25 13:30 05/19/25 13:05 05/19/25 13:00 05/19/25 12:50 100 Oxymask 4 05/19/25 12:45 100 Oxymask 4 05/19/25 12:40 100 Oxymask 4 05/19/25 12:35 100 Oxymask 4 05/19/25 12:30 100 Oxymask 4 05/19/25 12:25 100 Oxymask 4 05/19/25 12:20 100 Oxymask 4 05/19/25 12:15 100 Oxymask 4 05/19/25 12:07 99 Oxymask 4 05/19/25 09:28 97 Room Air 05/19/25 08:28 92 Nasal Cannula 2 05/19/25 08:15 Nasal Cannula 2 05/19/25 07:28 Laboratory Results 05/19/25 06:25 05/19/25 06:25 PG Care Time/CCT Total # of Minutes Spent Total Time Spent with Patient: Total time spent is greater than 50% in coordination of care (as documented) at patient's floor/unit and/or counseling patient: Coding Level of Care Code 39218 SUB INP/OBS CARE 2MIN Diagnoses ESRD on hemodialysis N18.6; Z99.2 Hypertension I10 PRES (posterior reversible encephalopathy syndrome) I67.83
[2025-05-19] MEDS: ACETAMINOPHEN 325 MG TAB PO SCH (18:29)
[2025-05-19] MEDS: HYDROmorphone INJ 0.5 MG/0.5 ML SYR IV PRN (19:25)
[2025-05-19] MEDS: LIDOCAINE 1% LOCAL 20 ML VIAL ONE (21:00)
[2025-05-19] MEDS: HEPARIN SOD (PORCINE) 5,000 UNITS/ML VIAL ONE (21:00)
[2025-05-19] MEDS: ONDANSETRON INJ 2 MG/ML 2 ML VIAL IV PRN (21:01)
--- NOTE | 2025-05-19 23:22 | Ultrasound Report ---
Exam(s): US VENOUS LEFT UPPER EXTREMITY EXAM: US Duplex Left Upper Extremity Veins CLINICAL HISTORY: Reason for exam: end stage renal disease. TECHNIQUE: Real-time duplex ultrasound scan of the left upper extremity veins integrating B-mode two-dimensional vascular structure, Doppler spectral analysis, color flow Doppler imaging and compression. COMPARISON: No relevant prior studies available. FINDINGS: Superficial veins: Left cephalic vein upper arm 2.2 mm in diameter, 1. 2 mm deep. Left cephalic vein mid upper arm 3.7 mm in diameter, 1 mm deep. Left cephalic vein mid 2.3 mm in diameter, 1.6 mm deep. Left cephalic vein above the elbow 3.7 mm in diameter, 1.6 mm deep. Left cephalic vein at the antecubital fossa 3.6 mm in diameter, 1 mm deep. Left cephalic vein in the upper forearm, 3 mm in diameter, 1.6 mm deep. Left cephalic vein mid forearm 1.5 mm in diameter, 1.5 mm deep. Left cephalic vein in the lower forearm, 1.8 mm in diameter, 1.4 mm deep. Left cephalic vein at the wrist 2 point 3 mm in diameter, 2.4 mm deep. Left basilic vein in the upper arm, 9.5 mm in diameter, 4 mm deep. Left basilic vein in the mid upper arm, 11 mm in diameter, 3.4 mm deep. Left basilic vein mid upper arm, 10 mm in diameter, 3.4 mm deep. Left basilic vein at the antecubital fossa, 9.4 mm in diameter, 3.1 mm deep. Left basilic vein in the upper forearm, 4.7 mm in diameter, 1.1 mm deep. Left basilic vein midforearm, 4.4 mm in diameter, 1.1 mm deep. Left basilic vein at the lower forearm, 3.1 mm in diameter, 1 mm deep. Left basilic vein at the wrist, 2.1 mm in diameter, 1 mm deep. Soft tissues: No acute findings. Other findings: No venous thrombus is seen. IMPRESSION: No venous thrombus is seen. Electronically signed by: Akbar Conde MD 05/19/25 23:21 PM
[2025-05-20 07:36] LABS: Hematocrit (blood only) 23.8 % (42.0-52.0); Hemoglobin 8.0 g/dl (14.0-18.0); Immature Granulocytes # (auto) 0.01 K/uL (0.01-0.20); Immature Granulocytes % (auto) 0.2 %; Mean Corpuscular Hemoglobin 29.2 pg (25.0-34.0); Mean Corpuscular Volume 86.9 fL (80.0-100.0); Platelet Count 104 K/uL (130-400); RDW Standard Deviation 47.0 fL (36.4-46.3); Red Blood Count 2.74 M/uL (4.70-6.10); White Blood Count 4.34 K/ul (4.8-10.8)
[2025-05-20 08:02] LABS: Anion Gap 10.0 (3-11); Blood Urea Nitrogen 54.0 mg/dl (6-23); Calcium 9.1 mg/dl (8.6-10.3); Carbon Dioxide 32.0 mmol/L (21-32); Chloride 95.0 mmol/L (98-107); Creatinine Clr Calc Pharmacy 12.3 ml/min; Glucose 114.0 mg/dl (70-99(Fasting)); Potassium 5.3 mmol/L (3.5-5.1); Sodium 137.0 mmol/L (136-145)
--- NOTE | 2025-05-20 09:42 | Nephrology Progress Note ---
Date of Service May 20, 2025 Assessment & Plan (1) ESRD on hemodialysis: (2) Hypertension: (3) Anemia due to chronic kidney disease: (4) History of removal of dialysis catheter: Plan 20-year-old male with end-stage kidney disease and hypertensive urgency, secondary to primary FSGS , admitted to the hospital after tunneled dialysis catheter spontaneously came out. Hemodynamically stable, blood pressure well- controlled. No sign of volume overload or respiratory distress. Chest x-ray unremarkable. Hemoglobin low but stable. Still makes some urine. Clinically stable, volume status acceptable. K 5.3. Blood pressure fair. Otherwise asymptomatic. --HD now as regular schedule. --Low potassium diet. --Fluid restriction to less than 1 L/day --Continue amlodipine, clonidine, minoxidil and torsemide current dose. Can be adjusted as an outpatient based on BP --Continue Renvela 1 tab 3 times daily with meals --Nephrocaps once a day --left arm nephrology precaution --OK to be discharged after HD Admission and Anticipated Discharge Date Admission Date: May 17, 2025 Dimas Payton was seen and evaluated this morning. Complaining of pain at the tunneled dialysis catheter site but otherwise asymptomatic. No bleeding at time dialysis catheter site. Had dialysis yesterday after placement of the catheter, tolerated well, uneventfully. Blood pressure acceptable. Currently getting dialysis as his regular schedule. Review of Systems Review of Systems: All systems reviewed & are unremarkable except as noted in Subjective Physical Exam Constitutional: WD/WN, vitals as above no acute distress Eyes: + anicteric sclerae Neck: normal visual inspection Respiratory: no respiratory distress Auscultation: lungs clear to auscultation bilaterally Cardiovascular: RRR, no murmur, no edema Rate/Rhythm: regular rate and regular rhythm Heart Sounds: normal S1 and normal S2 Extremities: no edema Musculoskeletal: Extremities: extremities normal to inspection Neurologic: no focal motor deficits Psychiatric: Orientation: alert and oriented x 3 Affect: euthymic affect Results & Data Vital Signs (Past 12 Hours) Vital Signs Temp Pulse Pulse Resp BP Pulse Ox O2 Del Method 05/20/25 07:43 36.5 C 76 16 129/71 96 Room Air 05/20/25 07:11 75 05/20/25 03:33 36.5 C 77 16 127/71 94 Room Air 05/19/25 23:20 36.4 C L 82 16 119/63 90 Room Air 05/19/25 21:44 89 PG Care Time/CCT Total # of Minutes Spent Total Time Spent with Patient: Total time spent is greater than 50% in coordination of care (as documented) at patient's floor/unit and/or counseling patient: Coding Level of Care Code 30064 SUB INP/OBS CARE 2/35MIN Diagnoses ESRD on hemodialysis N18.6; Z99.2 Hypertension I10 Anemia due to chronic kidney disease N18.9; D63.1 History of removal of dialysis catheter Z98.890
--- NOTE | 2025-05-20 11:52 | Discharge Summary ---
Discharge Summary Date of Service May 20, 2025 Principal Dx & Hospital Course #1 = Principal Diagnosis (1) ESRD on hemodialysis: The patient's right upper chest temporary dialysis catheter came out 05/17. Chest x-ray reveals no pneumothorax. Hemostasis has been currently achieved. Nephrology consultation and recommendations appreciated. Tunneled dialysis catheter placed 05/[address] Pacheco. Follow up for AVF -post procedure significant pain - ordered hydromorphone 0.5 mg IV q3h and oxycodone 10 mg q3h PRN pain, scheduled APAP HD for 4h following that. HD due tomorrow as well. Home tomorrow - pain not controlled yet tonight. (2) Hypertension: Controlled with amlodipine, clonidine, labetalol, minoxidil -BP not at goal <140 getnerally but much better than several weeks ago -continue same -has referral to [facility] for refractory HTN / renal denervation (3) PRES (posterior reversible encephalopathy syndrome): Recent hospitalization for PRES associated with seizure activity. Now con trolled Continue keppra 3 mo Plan Pancytopenia - recent BM Bx was hypocellular, karyotype and genetics normal. Dr Guevara thought possibly from splenomegaly HSM - cause not known. Tests for kappa/lambda, OC level, Fabry's normal. 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 He recently was hospitalized with PRES syndrome with seizures. He was going to his usual hemodialysis session this morning when he noticed his right upper chest temporary tunneled dialysis catheter had come out. Minimal bleeding. Chest x-ray done in the ED reveals no evidence of pneumothorax. He is hemodynamically stable. Blood pressure is acceptable at 154/92. He is admitted for further evaluation and treatment along with nephrology consultation Discharge Exam Last 24h vitals reviewed GEN: no acute distress, sitting in bed HEENT: pupils equal, sclerae anicteric, moist MM RESP: normal WOB, CTAB CV: reg no mrg Rt upper chest - HD cath is out, dressed, no bleeding ABD: soft/nt/nd +BT : no conley SKIN: warm and dry, no generalized rashes NEURO: AOx person, place, and situation. Face symmetric, speech normal, moves 4 ext spontaneously and equally Discharge Plan Discharge Items Patient Disposition: Home - Self-Care Reason For Visit: TUNNELED DIALYSIS CATHETER CAME OUT Discharge Diagnosis: Dialysis catheter complication Condition on Discharge: Good Activity: Resume your previous activity Non-emergency contact: Primary Care Provider and Timber Incisor Operator Call non-emergency contact if: you have any medication questions and your symptoms worsen Follow-up/Referrals: Andriy Woods DO [Physician] - Harsh Marshall DO [Primary Care Provider] - 05/29/25 11:30 am Diet: Dialysis Renal Addtl Attending Provider Instructions: Your dialysis catheter was replaced You might have pain from this but should improve over next couple of day. You can take acetaminophen up to 3000 mg per 24h for pain, and oxycodone for more severe pain for a couple of days Dont take NSAIDS because of your kidney disease Your blood pressure looks much better Dr. Guevara didn't recommend changing your BP meds right now, but if you're frequently having BP <120 or lightheadedness your meds may need to be tapered soon - call Dr. Woods Follow up with hypertension specialist as planned and I asked our nurse to double check on the cardiac MRI referral It was a pleasure taking care of you in the hospital, Alanna Felix MD Pending Studies at Discharge: No Stand-Alone Forms: My [facility], Smoking Cessation Medications and DC Order Prescriptions: New oxycodone 5 mg Tablet 5 - 10 mg PO Q3H PRN (Reason: pain) Qty: 20 0RF Triple Antibiotic 3.5mg-400 unit- 5,000 unit/gram Ointment 1 applic EXT BID Qty: 0 0RF Continued hydroxyzine HCl 25 mg tablet 25 mg PO TID PRN (Reason: anxiety) Qty: 90 1RF calcium acetate(phosphat bind) 667 mg capsule 1,334 mg PO TIDM 90 Days Qty: 540 3RF amlodipine 10 mg tablet 10 mg PO QAM Qty: 90 2RF cholecalciferol (vitamin D3) 125 mcg (5,000 unit) tablet 125 mcg PO QAM Qty: 90 1RF torsemide 20 mg tablet 40 mg PO BID sertraline 25 mg tablet 25 mg PO DAILY Qty: 30 2RF clonidine 0.3 mg/24 hr patch weekly 0.3 mg transdermal Q7D ketoconazole 2 % cream 1 applic topical Q OTHER DAY PRN (Reason: Rash) Rx Instructions: Apply as directed at Cath site Medical Marijuana 1 dose PO DIRECTED PRN (Reason: Other) gabapentin 100 mg Capsule 200 mg PO BID Qty: 120 2RF levetiracetam 1,000 mg tablet 1,000 mg PO DAILY Qty: 30 2RF Rx Instructions: for seizure prevention; on dialysis days take AFTER your dialysis session. lorazepam 0.5 mg Tablet 0.5 mg PO Q12H PRN (Reason: anxiety) Qty: 7 0RF mirtazapine 15 mg Tablet 15 mg PO HS Qty: 30 2RF Renal Caps 1 mg Capsule 1 cap PO QAM Qty: 30 2RF Lokelma 10 gram Powder In Packet 10 g PO DAILY@1900 Qty: 30 2RF sevelamer carbonate 800 mg Tablet 800 mg PO TIDM Qty: 90 2RF labetalol 200 mg tablet 400 mg PO TID Qty: 180 2RF minoxidil 10 mg tablet 20 mg PO BID Qty: 120 2RF Discharge Orders: Discharge Order (Routine); Ordered 05/20/25 Ordered By: Alanna Felix Admission Data Admit Date/Time: 05/17/25 08:10 Attending Provider: Alanna Felix Admit Provider: Sher Vega Primary Care Provider: Harsh Marshall Other Providers: Sher Vega; Chavez Bonner; Johnson Guevara Kevin C.; Ramila Medellin; Andres Pacheco Hospital Stay Data Consultations 05/17/25 07:18 ED Decision to Admit Stat 05/17/25 09:17 Consult Nephrology Routine 05/17/25 11:31 Consult Vascular Surgery Routine Procedures Performed Operation Date: 05/21/25 12:30 <No data on this case meets the specified criteria> Diagnostic Imagining Performed 05/19/25 08:24 EV cvc insrt tunnel wo prt/office technology professor Routine 05/19/25 15:13 US venous mapping UE LT Routine Pending Results Patient Have Any Pending Studies at Discharge: No Discharge Instructions Given to Patient (Per Discharging Provider) Your dialysis catheter was replaced You might have pain from this but should improve over next couple of day. You can take acetaminophen up to 3000 mg per 24h for pain, and oxycodone for more severe pain for a couple of days Dont take NSAIDS because of your kidney disease Your blood pressure looks much better Dr. Guevara didn't recommend changing your BP meds right now, but if you're frequently having BP <120 or lightheadedness your meds may need to be tapered soon - call Dr. Woods Follow up with hypertension specialist as planned and I asked our nurse to double check on the cardiac MRI referral It was a pleasure taking care of you in the hospital, Alanna Felix MD Coding Diagnoses ESRD on hemodialysis N18.6; Z99.2 Hypertension I10 PRES (posterior reversible encephalopathy syndrome) I67.83
--- NOTE | 2025-05-20 18:01 | Hospitalist Progress Note ---
Date of Service May 20, 2025 Assessment & Plan (1) ESRD on hemodialysis: (2) Hypertension: (3) PRES (posterior reversible encephalopathy syndrome): Plan 20 y/o with ESRD secondary to FSGS on hemodialysis, PRES with seizures and refractory hypertension Admitted because tunneled HD catheter fell out #HD catheter malfunction #ESRD on HD HD catheter replaced 05/[address] Pacheco -APAP, hydromorphone 0.5 mg IV, oxycodone -had HD 05/20, 05/20. TuThSat schedule with Dr. Woods -discussed with Dr. Pacheco - on schedule for AVF placement tomorrow #Severe, refractory hypertension on multiple agents Comprehensive workup for secondary causes of hypertension last admission BP much better controlled, may need to taper meds soon. Goal <140 with recent PRES Controlled with amlodipine, clonidine, labetalol, minoxidil -has referral to [facility] for refractory HTN / renal denervation #PRES with seizures -headaches related to PRES much improved - held gabapentin because of myoclonic jerks -oral keppra x 3 mo follow up with neurology #Hepatosplenomegaly, asymmetric apical hypertrophic cardiomyopathy -cardiac MRI recommended as outpatient - confirming referral made. could be caused by HTN, rule out infiltrative causes -SPEP, kappa/lambda, OC level, and screening test for Fabry's recently negative. No iron overload. Unclear cause # Pancytopenia - recent BM Bx was hypocellular, karyotype and genetics normal. Dr Hawk thought possibly from splenomegaly Thrombocytopenia worsens on heparin - sent heparin Ab last admission Discharge home after fistula placement Follow up with Dr. Woods Admission and Anticipated Discharge Date Admission Date: May 17, 2025 Subjective HD catheter placed this am, as planned Seen on dialysis R chest tender at catheter site, functioning fine on HD Currently has headache Physical Exam 2 Physical Exam: Awake and alert, keeping eyes closed a bit for light Breathing comfortably New tunneled HD line Rt upper chest, mild oozing, in use Abd ND Ext wwp and no edema Results & Data Results & Data Vital Signs (Past 12 Hours) Vital Signs Temp Pulse Pulse Resp BP BP Pulse Ox 05/20/25 13:13 36.8 C 84 131/61 05/20/25 12:30 82 137/58 L 05/20/25 12:00 86 130/59 L 05/20/25 11:30 82 127/53 L 05/20/25 11:00 81 121/42 L 05/20/25 10:30 79 112/39 L 05/20/25 10:00 79 111/44 L 05/20/25 09:30 80 125/53 L 05/20/25 09:25 80 127/63 05/20/25 09:21 36.8 C 80 05/20/25 07:43 36.5 C 76 16 129/71 96 05/20/25 07:11 75 O2 Del Method 05/20/25 13:13 05/20/25 12:30 05/20/25 12:00 05/20/25 11:30 05/20/25 11:00 05/20/25 10:30 05/20/25 10:00 05/20/25 09:30 05/20/25 09:25 05/20/25 09:21 05/20/25 07:43 Room Air 05/20/25 07:11 Laboratory Results 05/20/25 07:10 05/20/25 07:10 PG Care Time/CCT Total # of Minutes Spent Total Time Spent with Patient: Total time spent is greater than 50% in coordination of care (as documented) at patient's floor/unit and/or counseling patient: Coding Level of Care Code 76358 SUB INP/OBS CARE 2/35MIN Diagnoses ESRD on hemodialysis N18.6; Z99.2 Hypertension I10 PRES (posterior reversible encephalopathy syndrome) I67.83
--- NOTE | 2025-05-21 09:37 | Nephrology Progress Note ---
Date of Service May 21, 2025 Assessment & Plan (1) ESRD on hemodialysis: (2) Hypertension: (3) Anemia due to chronic kidney disease: (4) History of removal of dialysis catheter: Plan 20-year-old male with end-stage kidney disease and hypertensive urgency, secondary to primary FSGS , admitted to the hospital after tunneled dialysis catheter spontaneously came out. Hemodynamically stable, blood pressure well- controlled. No sign of volume overload or respiratory distress. Chest x-ray unremarkable. Hemoglobin low but stable. Still makes some urine. Clinically stable, volume status acceptable. Blood pressure fair. Otherwise asymptomatic. --HD tomorrow as his regular schedule, however, okay to be discharged if clinically stable after AV fistula placement. --Low potassium diet. --Fluid restriction to less than 1 L/day --Continue amlodipine, clonidine, minoxidil and torsemide current dose. Can be adjusted as an outpatient based on BP --Continue Renvela 1 tab 3 times daily with meals --Nephrocaps once a day --left arm nephrology precaution Admission and Anticipated Discharge Date Admission Date: May 17, 2025 iDmas Payton was seen and evaluated this morning. Overall doing well, asymptomatic, awaiting for AV fistula placement later today. Had hemodialysis yesterday as his regular schedule, tolerated well. Currently blood pressure reasonable, volume status acceptable. Electrolyte acceptable. Review of Systems Review of Systems: All systems reviewed & are unremarkable except as noted in Subjective Physical Exam Constitutional: WD/WN, vitals as above no acute distress Eyes: + anicteric sclerae Respiratory: no respiratory distress Auscultation: lungs clear to aus cultation bilaterally Cardiovascular: RRR, no murmur, no edema Musculoskeletal: Extremities: extremities normal to inspection Neurologic: no focal motor deficits Psychiatric: Orientation: alert and oriented x 3 Affect: euthymic affect Results & Data Vital Signs (Past 12 Hours) Vital Signs Temp Pulse Pulse Resp BP Pulse Ox O2 Del Method 05/21/25 08:13 36.7 C 86 20 151/77 H 95 Room Air 05/21/25 07:34 82 05/21/25 04:00 36.8 C 87 18 141/75 H 94 Room Air 05/20/25 23:31 36.6 C 94 H 18 149/69 H 92 Room Air 05/20/25 22:02 93 H PG Care Time/CCT Total # of Minutes Spent Total Time Spent with Patient: Total time spent is greater than 50% in coordination of care (as documented) at patient's floor/unit and/or counseling patient: Coding Level of Care Code 18853 SUB INP/OBS CARE 235MIN Diagnoses ESRD on hemodialysis N18.6; Z99.2 Hypertension I10 Anemia due to chronic kidney disease N18.9; D63.1 History of removal of dialysis catheter Z98.890
[2025-05-21 10:18] LABS: Anion Gap 11.0 (3-11); Blood Urea Nitrogen 59.0 mg/dl (6-23); Calcium 9.7 mg/dl (8.6-10.3); Carbon Dioxide 30.0 mmol/L (21-32); Chloride 99.0 mmol/L (98-107); Creatinine Clr Calc Pharmacy 13.7 ml/min; Glucose 93.0 mg/dl (70-99(Fasting)); Potassium 4.8 mmol/L (3.5-5.1); Sodium 140.0 mmol/L (136-145)
--- NOTE | 2025-05-21 13:24 | History & Physical Bridge Note ---
Date of Service May 21, 2025 History & Physical Bridge Note Patient for a left arm av fistula creation today. I have discussed the risks options and benefits of the procedure with the patient. The patient understands the risks options and benefits and agrees to the procedure. I have examined the patient, reviewed the History & Physical and in the interval since the performance of the History & Physical I have noted the following changes of clinical significance: no changes noted
[2025-05-21] MEDS ORDERED: ONDANSETRON INJ 2 MG/ML 2 ML VIAL IV PRN (13:57)
[2025-05-21] MEDS ORDERED: PROMETHAZINE HCL 6.25 MG in SODIUM CHLORIDE 0.9% 50 ML IV PRN (13:57)
[2025-05-21] MEDS ORDERED: NALOXONE HCL 0.4 MG/1 ML VIAL/CARP IV PRN (13:57)
[2025-05-21] MEDS ORDERED: FLUMAZENIL 0.1 MG/1 ML 10 ML VIAL IV PRN (13:57)
[2025-05-21] MEDS ORDERED: ATROPINE SULFATE 0.1 MG/ML 10ML SYR IV PRN (13:57)
--- NOTE | 2025-05-21 13:57 | Anesthesiology Consultation ---
Date of Service May 21, 2025 Assessment & Plan Chart Review Chart Review: Acceptable Risk for Surgery and Patient NOT seen in Pre Admission Testing Consults Requested none ASA ASA4 Proposed Anesthesia Anesthesia Type: MAC Regional Regional Laterality: Left Site: Supraclavicular Risk / Benefits Reviewed With: PT / POA / Parent / Guardian, Accepts Plan and Informed Consent Obtained History Surgery Operation Date: 05/19/25 13:40 Proposed Procedures p Perm Catheter Insertion - Andres Pacheco MD Operation Date: 05/21/25 12:30 Proposed Procedures p Left Wrist Cephalic Vein Arteriovenous Fistula Creation, Possible Left Antecubital Basilic Vein - Andres Pacheco MD Height/Weight Height: 6 ft 1 in Weight: 89.2 kg Allergies Allergy/AdvReac Type Severity Reaction Status Date / Time No Known Allergies Allergy Unknown Verified 05/17/25 08:13 Medications Home Medications Medication Instructions Recorded Confirmed Last Taken hydroxyzine HCl 25 mg tablet 25 mg PO TID PRN anxiety #90 tabs 11/13/24 05/17/25 Unknown amlodipine 10 mg tablet 10 mg PO QAM #90 tabs 01/29/25 05/17/25 05/17/25 calcium acetate(phosphat bind) 667 1,334 mg (2 x 667 mg) PO TIDM 90 01/29/25 05/17/25 05/17/25 mg capsule days #540 caps cholecalciferol (vitamin D3) 125 125 mcg PO QAM #90 tabs 01/29/25 05/17/25 05/17/25 mcg (5,000 unit) tablet Medical Marijuana 1 dose PO DIRECTED PRN Other 03/14/25 05/17/25 03/23/25 23:00 clonidine 0.3 mg/24 hr weekly 0.3 mg transdermal Q7D 04/17/25 05/17/25 Unknown transdermal patch ketoconazole 2 % topical cream 1 applic topical Q OTHER DAY PRN 04/17/25 05/17/25 Unknown Rash torsemide 20 mg tablet 40 mg PO BID 04/17/25 05/17/25 05/17/25 gabapentin 100 mg capsule 200 mg (2 x 100 mg) PO BID #120 05/09/25 05/17/25 05/17/25 caps labetalol 200 mg tablet 400 mg (2 x 200 mg) PO TID #180 05/09/25 05/17/2505/17/25 tabs levetiracetam 1,000 mg tablet 1,000 mg PO DAILY #30 tabs 05/09/25 05/17/25 05/17/25 lorazepam 0.5 mg tablet 0.5 mg PO Q12H PRN anxiety #7 tabs 05/09/25 05/17/25 Unknown minoxidil 10 mg tablet 20 mg (2 x 10 mg) PO BID #120 tabs 05/09/25 05/17/25 05/17/25 mirtazapine 15 mg tablet 15 mg PO HS #30 tabs 05/09/25 05/17/25 05/16/25 sevelamer carbonate 800 mg tablet 800 mg PO TIDM #90 tabs 05/09/25 05/17/25 05/17/25 sodium zirconium cyclosilicate 10 10 g PO DAILY@1900 #30 ea 05/09/25 05/17/25 05/16/25 gram oral powder packet (Lokelma) vitamin B complex and vitamin C 1 cap PO QAM #30 caps 05/09/25 05/17/25 05/17/25 no.20-folic acid 1 mg capsule (Renal Caps) sertraline 25 mg tablet 25 mg PO DAILY #30 tabs 05/14/25 05/17/25 Unknown oxycodone 5 mg tablet 5 - 10 mg (1 - 2 x 5 mg) PO Q3H 05/20/25 Unknown PRN pain #20 tabs Active Medications Generic Name Dose Route Start Last Admin Trade Name Freq PRN Reason Stop Dose Admin Acetaminophen 650 mg 05/19/25 18:15 05/21/25 06:24 Acetaminophen 325 Mg Tab PO 06/18/25 18:14 650 mg Q6H MOOSE Administration Amlodipine Besylate 10 mg 05/17/25 21:00 05/20/25 20:00 Amlodipine Besylate 5 Mg Tab PO 06/16/25 20:59 10 mg TODAY@2100 MOOSE Administration Calcium Acetate 1,334 mg 05/18/25 17:00 05/21/25 10:21 Calcium Acetate 667 Mg Cap/Tab PO 06/16/25 11:59 Not Given TIDM MOOSE Gabapentin 200 mg 05/17/25 09:17 05/19/25 08:27 Gabapentin 100 Mg Cap PO 06/16/25 09:16 200 mg BID MOOSE Administration Hydromorphone HCl 0.5 mg 05/19/25 18:10 05/21/25 10:23 Hydromorphone Inj 0.5 Mg/0.5 Ml Syr IV 06/02/25 18:09 0.5 mg Q3H PRN Administration Severe Pain (Scale 7, 8, 9,10) Labetalol HCl 400 mg 05/17/25 09:17 05/21/25 12:25 Labetalol Hcl 200 Mg Tab PO 06/16/25 09:16 Not Given TID MOOSE Minoxidil 20 mg 05/17/25 21:00 05/21/25 12:26 Minoxidil 2.5 Mg Tab PO 06/16/25 20:59 Not Given BID MOOSE Mirtazapine 15 mg 05/17/25 21:00 05/20/25 20:02 Mirtazapine Tab 15 Mg Tab PO 06/16/25 20:59 15 mg HS MOOSE Administration Miscellaneous 1 each 05/17/25 16:00 05/21/25 10:27 Check Clonidine Patch Placement N/A 06/16/25 15:59 1 each QS MOOSE Administration Neomycin/Polymyxin/Bacitracin 1 appln 05/18/25 09:20 05/20/25 20:02 Neomycin/Polymyx/Bacitr Oint 15 Gm Tube EXT 06/17/25 09:19 Not Given BID MOOSE Ondansetron HCl 4 mg 05/17/25 09:17 05/19/25 21:01 Ondansetron Inj 2 Mg/Ml 2 Ml Vial IV 06/16/25 09:16 4 mg Q6H PRN Administration Nausea And Vomiting Oxycodone HCl 10 mg 05/19/25 18:10 05/20/25 13:39 Oxycodone Hcl Ir 5 Mg Tab (Immediate Release) PO 06/02/25 18:09 10 mg Q3H PRN Administration Moderate Pain 4-6/10 Sertraline HCl 50 mg 05/17/25 21:00 05/20/25 20:02 Sertraline Hcl 50 Mg Tablet PO 06/16/25 20:59 50 mg TODAY@2100 MOOSE Administration Sevelamer Carbonate 800 mg 05/17/25 12:00 05/21/25 10:27 Sevelamer Carbonate 800 Mg Tab PO 06/16/25 11:59 Not Given TIDM MOOSE Sodium Zirconium Cyclosilicate 10 gm 05/17/25 19:00 05/20/25 19:59 Sodium Zirconium Cyclosilicate 10 Gm Packet PO 06/16/25 18:59 10 gm DAILY@1900 MOOSE Administration Torsemide 40 mg 05/17/25 09:17 05/21/25 12:26 Torsemide 20 Mg Tab PO 06/16/25 09:16 Not Given BID17 MOOSE Vitamin B Complex/Folic Acid 1 cap 05/17/25 09:17 05/21/25 12:26 Nephrocaps PO 06/16/25 09:16 Not Given QAM MOOSE Vitamin D 125 mcg 05/17/25 09:17 05/21/25 12:25 Cholecalciferol 125 Mcg (5,000 Units) Tab PO 06/16/25 09:16 Not Given QAM MOOSE NPO Date Last Intake of Fluids: 05/21/25 Time Last Intake of Fluids: 03:00 Date Last Intake of Solids: 05/20/25 Time Last Intake of Solids: 22:00 Past Medical History Medical History PRES (posterior reversible encephalopathy syndrome) New onset seizure Hyperkalemia Nausea & vomiting Headache End stage renal disease Hx of metabolic acidosis Anticoagulated on Coumadin pt states he has not been taking his Coumadin since apprx mid January 2025 Dialysis patient [facility] in [place] > /th/sat History of postoperative nausea and vomiting Hx of deep venous thrombosis 01/2024 > right arm > was on warfarin > now DC'ed Cardiac murmur Anemia FSGS (focal segmental glomerulosclerosis) Generalized anxiety disorder Thrombophilia End stage renal disease follows with Dr. Mcdermott - HD 3x per week:[facility] in [place] > tu//sat CKD (chronic kidney disease) Hypertension recently added clonidine 0.[address] mcdermott Exercise / Class Metabolic Activity III < 4 Walking/Shop/Light housework Past Family History Family History Mother Diabetes Grandfather (Maternal) Hypertension Other No family history of adverse response to anesthesia Denies family history of Ovarian cancer Prostate cancer Myocardial infarction Breast cancer Lung cancer Stroke Past Surgical History Surgical History S/P hemodialysis catheter insertion (12/2024) perm cath for HD- right jugular S/P left knee arthroscopy H/O hernia repair Past Anesthesia History No Hx of Anesthesia Complications and No Family Hx of Anesthesia Complications History of PONV No Hx of PONV and No Hx of Motion Sickness Social History Smoking Status: Never smoker Do You Dip or Chew Tobacco: No Hx Alcohol Use: No Hx Substance Use: Yes substance use type: marijuana Substance Use Type Other:: has card Last Used Substance: Unknown Last Used Substance Other:: 2 days Physical Exam Vital Signs Last Vital Signs Temp 37 C 05/21/25 11:44 Pulse 80 05/21/25 11:44 Resp 17 05/21/25 11:44 BP 164/91 H 05/21/25 11:44 Pulse Ox 98 05/21/25 11:44 O2 Del Method Room Air 05/21/25 11:44 O2 Flow Rate 4 05/19/25 12:50 Constitutional no acute distress ENMT Mouth: + dentition abnormality and + poor dentition Thyromental Distance: > or= 3.5 Finger Breadths Mallampati Class: II Neck normal visual inspection and trachea midline; neck extension not limited Respiratory normal respiratory effort Auscultation: + diminished lung sounds Cardiovascular Rate/Rhythm: regular rate and regular rhythm Heart Sounds: no murmur Vessels: no carotid bruit Chest (Breasts) Chest: + vascular access device or port Musculoskeletal Spine: normal cervical ROM and no pain with cervical ROM Extremities: extremities normal to inspection; full ROM of extremities Neurologic moves all extremities Motor/Sensory: no sensory deficit Psychiatric Orientation: alert and oriented x 3 Testing Laboratory Results 05/20/25 07:10 05/21/25 09:06
[2025-05-21] MEDS: SURGICEL ABSORB HEMOSTAT 2IN X 14IN TOP ONE (15:17)
[2025-05-21] MEDS: HEPARIN (PORCINE) 1000 UNIT/ML 10 ML (CATH LAB USE ONLY) ONE (15:35)
[2025-05-21] MEDS: ceFAZolin 330 MG/ML 1 GM VIAL ONE (16:21)
[2025-05-21] MEDS: THROMBIN FOR SOLN 20000 UNIT KIT ONE (16:22)
[2025-05-21] MEDS: GELATIN SPONGE 12-7MM ONE (16:22)
--- NOTE | 2025-05-21 16:42 | Operative Report ---
Post Operative Report Pre & Post Diagnosis Operation Date: 05/21/25 12:30 Pre-Op Diagnosis: End Stage Renal Disease on Hemodialysis Post-Op Diagnosis: End Stage Renal Disease on Hemodialysis I identified the patient and participated in the time-out.: Yes Procedure Operation Date: 05/21/25 12:30 Actual Procedures Left forearm arteriovenous fistula between ulnar artery and median cubital vein Surgeon Andres Pacheco MD Machine Chocolate Molder MD Jorge Estimated Blood Loss 20 Findings See Below Patient had multiple venous branches at the level of the antecubital fossa. At the end of the case, there was a palpable thrill over the fistula. Patient had a palpable radial and ulnar pulse at the end of the case. Specimens None Anesthesia Type General Complications None Indications 20 year old male patient with end-stage renal disease on hemodialysis and hypertensive urgency, secondary to primary FSGS. He was admitted to the hospital after tunneled dialysis catheter spontaneously came out. While he was admitted, we placed a tunneled dialysis catheter. His hemodynamics improved and he has been stable with no signs of volume overload or respiratory distress. Given that he will need durable access for dialysis, we offered him an arteriovenous fistula. After discussion of risks and benefits, patient provided informed consent to the procedure. Description of Procedure The patient was brought to the operating room and placed in supine position. He was identified by correct name, procedure and extremity. An arm block was performed by anesthesia team prior to the operating room but did this not seem to be effective. The decision was made to put the patient under general anesthesia. After this was achieved by the anesthesia team, the left arm was prepped and draped in the usual sterile fashion. A 5cm transverse incision was made just below the left antecubital fossa. The cephalic vein, median cubital vein as well as venous collaterals were identified and mobilized. The cephalic vein appeared small in size. The median cubital vein was of larger caliber and had many large collateral branches. We then turned our attention to the brachial sheath. Once it was encountered, care was taken to identify and protect the median nerve. The brachial artery was found between paired brachial veins. It was carefully dissected off of the surrounding tissue. We were able to visualize the bifurcation of the brachial artery into the radial and ulnar arteries. Careful dissection was performed around these and proximal and distal control was obtained. Given the median cubital vein was of appropriate caliber for fistula creation, we ligated two of its branches to be able to mobilize it towards the artery. After mobilizing the median cubital vein, we decided to make our anastomosis to the ulnar artery, given that the brachial artery was too proximal and the radial artery too medial to create an anastomosis without kinking the vein or without having to ligate the cephalic vein collateral. The brachial, radial and ulnar arteries had a good pulse. All three of these were clamped. An #11 blade was used to make a longitudinal arteriotomy on the proximal ulnar artery and Jordan scissors were used to extend this proximally and distally. A tension free anastomosis was performed between the median cubital vein and the proximal ulnar artery with a running 6-0 Prolene suture. Before completion of the anastomosis, proximal and distal flow was unclamped and there was good inflow and backbleeding. We ensured there were no air bubbles inside the vessel and the anastomosis was then completed. This was hemostatic. All clamps were removed. The patient had a strong, multiphasic Doppler signal of the brachial, radial and ulnar arteries proximal and distal to the anastomosis. There was an audible bruit on Doppler over the fistula as well as a faintly palpable thrill. The wound was inspected and was hemostatic. The wound was copiously irrigated with antibiotic irrigation. The incision was closed with 3-0 Vicryl running suture at the level of the deep dermis, followed by a 4-0 Vicryl subcuticular running suture. Dermabond was applied as sterile dressing. At the conclusion of the case, patient had a faintly palpable thrill over the fistula. He also had a palpable radial and ulnar pulse at the level of the wrist. Patient tolerated the procedure well and was extubated in the operating room. He left the operating room in stable condition. All counts were correct at the end of the case. Dr Pacheco was present and participated in all critical aspects of the case. I attest to the content of the Intraoperative Record and any orders documented therein. Any exceptions are noted below.
--- NOTE | 2025-05-21 17:42 | Anesthesiology Progress Note ---
Date of Service May 21, 2025 Anesthesia Post Procedure Vital Signs Vital Signs: Temp Pulse Pulse Pulse Resp BP Pulse Ox 05/21/25 17:20 36.8 C 70 12 150/68 H 93 05/21/25 17:10 68 12 145/73 H 97 05/21/25 17:00 67 12 145/73 H 96 05/21/25 16:50 36.5 C 73 12 123/72 95 05/21/25 11:44 37 C 80 17 164/91 H 98 05/21/25 08:13 36.7 C 86 20 151/77 H 95 05/21/25 07:34 82 05/21/25 04:00 36.8 C 87 18 141/75 H 94 05/20/25 23:31 36.6 C 94 H 18 149/69 H 92 05/20/25 22:02 93 H 05/20/25 19:45 36.8 C 83 18 152/76 H 96 O2 Del Method O2 Flow Rate 05/21/25 17:20 Room Air 05/21/25 17:10 Oxymask 2 05/21/25 17:00 Oxymask 3 05/21/25 16:50 Oxymask 6 05/21/25 11:44 Room Air 05/21/25 08:13 Room Air 05/21/25 07:34 05/21/25 04:00 Room Air 05/20/25 23:31 Room Air 05/20/25 22:02 05/20/25 19:45 Room Air Pain Intensity Right Chest: Pain Intensity: 6 Transfer of Care Handoff Completed per policy Notes Mental Status: alert / awake / arousable and participated in evaluation Patient Amnestic to Procedure: Yes Nausea / Vomiting: adequately controlled Pain: adequately controlled Airway Patency, RR, SpO2: stable & adequate BP & HR: stable & adequate Hydration State: stable & adequate Anesthetic Complications: no major complications apparent and Pt Satisfied with anesthetic care
--- NOTE | 2025-05-21 20:52 | Hospitalist Progress Note ---
Date of Service May 21, 2025 Assessment & Plan (1) ESRD on hemodialysis: (2) Hypertension: (3) PRES (posterior reversible encephalopathy syndrome): Plan 20 y/o with ESRD secondary to FSGS on HD - //Mon schedule. Recent prolonged hospital stay 2nd to PRES with seizures and refractory hypertension. Admitted 2nd tunneled HD catheter falling out. #HD catheter accidental removal / ESRD on HD - -s/p tunneled HD catheter replacement on 05/[address] Pacheco -s/p LUE AV fistula creation by Dr Pacheco today -pain control tonight (dilaudid prn, tylenol prn, oxycodone prn) -HD session tomorrow via HD catheter #Severe, refractory hypertension on multiple agents - -controlled with amlodipine, clonidine, labetalol, minoxidil, torsemide -has referral to [facility] for refractory HTN / renal denervation #PRES with seizures - -clinically resolved -recent headaches 2nd to PRES - resolved -had been on gabapentin for headache prophy - now off due to recent myoclonic jerks -cont Keppra 1gm daily x 3 mo for seizure prophy #Hepatosplenomegaly, asymmetric apical hypertrophic cardiomyopathy - -cardiac MRI recommended as outpatient to r/o infiltrative disease -SPEP, kappa/lambda, OC level, and screening test for Fabry's recently negative. No iron overload. Unclear cause of HSM -bone marrow bx was negative #Pancytopenia - -recent bone marrow Bx was hypocellular but otherwise negative; karyotype and genetics normal -Dr Hawk thought pancytopenia was possibly from splenomegaly #hyperkalemia - -cont lokelma -K level wnl today can likely d/c home tomorrow Admission and Anticipated Discharge Date Admission Date: May 17, 2025 Subjective saw Kvng after his AV fistula creation was having considerable pain in his left arm denied dyspnea denied headache denied visual changes tele - NSR Review of Systems Review of Systems: cv - no chest pain pulm - no dyspnea GI - no abd pain Physical Exam Physical Exam: gen - NAD neck - no JVD mouth - MMM heart - 2/6 systolic murmur LSB, RRR, s1 s2 lungs - CTA b/l abd - soft NT ND BS+ vascular - right upper chest permcath clean; LUE AV fistula incision clean/intact ext - no edema, pulses b/l feet 2+ b Results & Data Results & Data Vital Signs (Past 12 Hours) Vital Signs Temp Pulse Pulse Resp BP Pulse Ox O2 Del Method 05/21/25 19:39 80 18 150/70 H 97 Room Air 05/21/25 18:06 36.6 C 68 20 152/91 H 98 Room Air 05/21/25 17:35 36.6 C 72 16 145/86 H 94 Room Air 05/21/25 17:20 36.8 C 70 12 150/68 H 93 Room Air 05/21/25 17:10 68 12 145/73 H 97 Oxymask 05/21/25 17:00 67 12 145/73 H 96 Oxymask 05/21/25 16:50 36.5 C 73 12 123/72 95 Oxymask 05/21/25 11:44 37 C 80 17 164/91 H 98 Room Air O2 Flow Rate 05/21/25 19:39 05/21/25 18:06 05/21/25 17:35 05/21/25 17:20 05/21/25 17:10 2 05/21/25 17:00 3 05/21/25 16:50 6 05/21/25 11:44 Laboratory Results Laboratory Results - last 24 hr 05/21/25 09:06 Sodium 140 Potassium 4.8 Chloride 99 Carbon Dioxide 30 Anion Gap 11 BUN 59 H Creatinine 9.74 H* D Est Cr Clr Drug Dosing 13.7 eGFR 7.20 BUN/Creatinine Ratio 6.1 L Glucose 93 Calcium 9.7 PG Care Time/CCT Total # of Minutes Spent Total Time Spent with Patient: Total time spent is greater than 50% in coordination of care (as documented) at patient's floor/unit and/or counseling patient: Coding Level of Care Code 71363 SUB INP/OBS CARE 2/35MIN Diagnoses ESRD on hemodialysis N18.6; Z99.2 Hypertension I10 PRES (posterior reversible encephalopathy syndrome) I67.83
[2025-05-21] MEDS: HYDROmorphone INJ 0.5 MG/0.5 ML SYR IV PRN (20:57)
[2025-05-21] MEDS: levETIRAcetam 500 MG TAB PO SCH (22:08)
[2025-05-22] MEDS: CAPSAICIN CR 0.075% 60 GM TUBE EXT PRN (00:06)
[2025-05-22] MEDS ORDERED: CETIRIZINE HCL 10 MG TABLET PO PRN (00:56)
[2025-05-22] MEDS: CETIRIZINE HCL 10 MG TABLET PO ONE (01:25)
--- NOTE | 2025-05-22 09:51 | Nephrology Progress Note ---
Date of Service May 22, 2025 Assessment & Plan (1) ESRD on hemodialysis: (2) Hypertension: (3) Anemia due to chronic kidney disease: (4) History of removal of dialysis catheter: Plan 20-year-old male with end-stage kidney disease and hypertensive urgency, secondary to primary FSGS , admitted to the hospital after tunneled dialysis catheter spontaneously came out. Hemodynamically stable, blood pressure well- controlled. No sign of volume overload or respiratory distress. Chest x-ray unremarkable. Hemoglobin low but stable. Still makes some urine. Had new TDC on 05/19/25 and left BC AVF on 05/21/25. Clinically stable, volume status acceptable. Blood pressure fair. Otherwise asymptomatic. --tolerating HD try 4 L UF as tolerated --Low potassium diet. --Fluid restriction to less than 1 L/day --Continue amlodipine, clonidine, minoxidil and torsemide current dose. Can be adjusted as an outpatient based on BP --Continue Renvela 1 tab 3 times daily with meals --Nephrocaps once a day --left arm nephrology precaution Admission and Anticipated Discharge Date Admission Date: May 17, 2025 Dimas Payton was seen and evaluated this morning. Overall doing well, asymptomatic except for pain at the site of fistula placement as well as right chest tunneled dialysis catheter and neck area. Tolerating dialysis, tolerating UF goal of around 4 L, blood pressure acceptable. Review of Systems Review of Systems: Ureterolithiasis, cellulitis unremarkable. Physical Exam Constitutional: WD/WN, vitals as above no acute distress Eyes: + anicteric sclerae Respiratory: no respiratory distress Auscultation: lungs clear to auscultation bilaterally Cardiovascular: Rate/Rhythm: regular rate and regular rhythm Heart Sounds: normal S1 and normal S2 Extremities: + vascular access device (rt IJ TDC) and + AV fistula (left BC AVF) Musculoskeletal: Extremities: extremities normal to inspection Skin: no rashes, warm and dry Neurologic: no focal motor deficits Psychiatric: Orientation: alert and oriented x 3 Affect: euthymic affect Results & Data Vital Signs (Past 12 Hours) Vital Signs Temp Pulse Pulse Pulse Pulse Resp BP 05/22/25 09:30 85 140/72 05/22/25 09:18 86 160/77 H 05/22/25 09:11 37 C 88 05/22/25 08:00 05/22/25 07:57 37.1 C 94 H 20 05/22/25 07:04 77 05/22/25 04:20 37.1 C 73 18 05/22/25 00:36 05/22/25 00:35 77 05/21/25 23:07 36.8 C 80 16 BP Pulse Ox O2 Del Method 05/22/25 09:30 05/22/25 09:18 05/22/25 09:11 05/22/25 08:00 Room Air 05/22/25 07:57 156/63 H 92 Room Air 05/22/25 07:04 05/22/25 04:20 145/77 H 95 Room Air 05/22/25 00:36 Room Air 05/22/25 00:35 05/21/25 23:07 153/82 H 95 Room Air PG Care Time/CCT Total # of Minutes Spent Total Time Spent with Patient: Total time spent is greater than 50% in coordination of care (as documented) at patient's floor/unit and/or counseling patient: Coding Level of Care Code 00101 SUB INP/OBS CARE 2/35MIN Diagnoses ESRD on hemodialysis N18.6; Z99.2 Hypertension I10 Anemia due to chronic kidney disease N18.9; D63.1 History of removal of dialysis catheter Z98.890
--- NOTE | 2025-05-22 20:40 | Hospitalist Progress Note ---
Date of Service May 22, 2025 Assessment & Plan (1) ESRD on hemodialysis: (2) Hypertension: (3) PRES (posterior reversible encephalopathy syndrome): Plan 20 y/o with ESRD secondary to FSGS on HD - //Mon schedule. Recent prolonged hospital stay 2nd to PRES with seizures and refractory hypertension (7.27 to 8.15). Admitted 2nd tunneled HD catheter falling out. #HD catheter accidental removal / ESRD on HD - -s/p tunneled HD catheter replacement on 05/[address] Pacheco -s/p LUE AV fistula creation by Dr Pacheco - 05/21 -cont pain control with oxy prn, tylenol scheduled q6h -s/p HD session today -transition away from IV dilaudid prn -discussed with Dr Pacheco - he advised against using a sling #Severe, refractory hypertension on multiple agents - -controlled with amlodipine, clonidine, labetalol, minoxidil, torsemide -has referral to [facility] for refractory HTN / renal denervation #PRES with seizures - -clinically resolved -recent headaches 2nd to PRES - resolved -had been on gabapentin for headache prophy - now off due to recent myoclonic jerks -cont Keppra 1gm daily x 3 mo for seizure prophy #Hepatosplenomegaly, asymmetric apical hypertrophic cardiomyopathy - -cardiac MRI recommended as outpatient to r/o infiltrative disease -SPEP, kappa/lambda, OC level, and screening test for Fabry's recently negative. No iron overload. Unclear cause of HSM -bone marrow bx was negative #Pancytopenia - -recent bone marrow Bx was hypocellular but otherwise negative; karyotype and genetics normal -Dr Hawk thought pancytopenia was possibly from splenomegaly #hyperkalemia - -cont lokelma -recheck BMP in am d/c home tomorrow Admission and Anticipated Discharge Date Admission Date: May 17, 2025 Subjective saw Kvng while he was receiving HD c/o mild pain over his recent right tunneled permcath insertion site main complaint is pain over the left arm AV fistula incision site feels tired otherwise doing ok I found out later in the day he requested 1 more night in the hospital to monitor his pains we discussed transitioning away from IV dilaudid and just using oxycodone oral he asks whether to use a sling for his left arm Review of Systems Review of Systems: cv - no chest pain pulm - no dyspnea neuro - no headaches eyes - no ocular disturbances Physical Exam Physical Exam: gen - NAD, but looks very tired today neck - no JVD mouth - MMM heart - 2/6 systolic murmur LSB, RRR, s1 s2 lungs - CTA b/l abd - soft NT ND BS+ vascular - right upper chest permcath clean; LUE AV fistula incision clean/intact; left arm with gross swelling (mild) ext - no edema, pulses b/l feet 2+ Results & Data Results & Data Vital Signs (Past 12 Hours) Vital Signs Temp Pulse Pulse Pulse Resp BP BP 05/22/25 19:54 36.8 C 88 18 153/86 H 05/22/25 16:56 85 05/22/25 16:36 36.6 C 79 16 159/90 H 05/22/25 13:34 36.8 C 82 140/77 05/22/25 13:00 85 137/72 05/22/25 12:30 84 151/67 H 05/22/25 12:00 86 145/72 H 05/22/25 11:30 87 149/63 H 05/22/25 11:00 91 H 150/74 H 05/22/25 10:30 87 130/69 05/22/25 10:00 85 138/65 05/22/25 09:30 85 140/72 05/22/25 09:18 86 160/77 H 05/22/25 09:11 37 C 88 Pulse Ox O2 Del Method 05/22/25 19:54 96 Room Air 05/22/25 16:56 05/22/25 16:36 94 Room Air 05/22/25 13:34 05/22/25 13:00 05/22/25 12:30 05/22/25 12:00 05/22/25 11:30 05/22/25 11:00 05/22/25 10:30 05/22/25 10:00 05/22/25 09:30 05/22/25 09:18 05/22/25 09:11 PG Care Time/CCT Total # of Minutes Spent Total Time Spent with Patient: Total time spent is greater than 50% in coordination of care (as documented) at patient's floor/unit and/or counseling patient: Coding Level of Care Code 67759 SUB INP/OBS CARE MIN Diagnoses ESRD on hemodialysis N18.6; Z99.2 Hypertension I10 PRES (posterior reversible encephalopathy syndrome) I67.83
[2025-05-23] MEDS: REMOVE CLONIDINE PATCH SCH (09:05)
[2025-05-23 09:22] LABS: Hematocrit (blood only) 24.8 % (42.0-52.0); Hemoglobin 9.0 g/dl (14.0-18.0); Immature Granulocytes # (auto) 0.01 K/uL (0.01-0.20); Immature Granulocytes % (auto) 0.2 %; Mean Corpuscular Hemoglobin 30.6 pg (25.0-34.0); Mean Corpuscular Volume 84.4 fL (80.0-100.0); Platelet Count 133 K/uL (130-400); RDW Standard Deviation 44.7 fL (36.4-46.3); Red Blood Count 2.94 M/uL (4.70-6.10); White Blood Count 4.14 K/ul (4.8-10.8)
[2025-05-23 09:45] LABS: Anion Gap 13.0 (3-11); Blood Urea Nitrogen 64.0 mg/dl (6-23); Calcium 10.2 mg/dl (8.6-10.3); Carbon Dioxide 29.0 mmol/L (21-32); Chloride 97.0 mmol/L (98-107); Creatinine Clr Calc Pharmacy 14.7 ml/min; Glucose 122.0 mg/dl (70-99(Fasting)); Potassium 4.8 mmol/L (3.5-5.1); Sodium 139.0 mmol/L (136-145)
--- NOTE | 2025-05-23 09:56 | Nephrology Progress Note ---
Date of Service May 23, 2025 Assessment & Plan (1) ESRD on hemodialysis: (2) Hypertension: (3) Anemia due to chronic kidney disease: (4) History of removal of dialysis catheter: Plan 20-year-old male with end-stage kidney disease and hypertensive urgency, secondary to primary FSGS , admitted to the hospital after tunneled dialysis catheter spontaneously came out. Hemodynamically stable, blood pressure well- controlled. No sign of volume overload or respiratory distress. Chest x-ray unremarkable. Hemoglobin low but stable. Still makes some urine. Had new TDC on 05/19/25 and left BC AVF on 05/21/25. Clinically stable, volume status acceptable. Blood pressure fair. Otherwise asymptomatic. Had HD yesterday. --next HD tomorrow, Ok to DC , continue HD at outpt unit. --continue Low potassium diet. --Fluid restriction to less than 1 L/day --Continue amlodipine, clonidine, minoxidil and torsemide current dose. Can be adjusted as an outpatient based on BP --Continue Renvela 1 tab 3 times daily with meals --Nephrocaps once a day --left arm nephrology precaution Admission and Anticipated Discharge Date Admission Date: May 17, 2025 Dimas Payton was seen and evaluated this morning. Overall doing well, asymptomatic except for pain at the site of fistula placement as well as right chest tunneled dialysis catheter and neck area although improving and much better than yesterday. Had dialysis yesterday, tolerated more than 4 L UF. Review of Systems Review of Systems: All systems reviewed & are unremarkable except as noted in Subjective Physical Exam Constitutional: WD/WN, vitals as above no acute distress Eyes: + anicteric sclerae Respiratory: no respiratory distress Auscultation: lungs clear to auscultation bilaterally Cardiovascular: Rate/Rhythm: regular rate and regular rhythm Heart Sounds: normal S1 and normal S2 Extremities: + vascular access device (rt IJ TDC) and + AV fistula (left BC AVF) Musculoskeletal: Extremities: extremities normal to inspection Skin: no rashes, warm and dry Neurologic: no focal motor deficits Psychiatric: Orientation: alert and oriented x 3 Affect: euthymic affect Results & Data Vital Signs (Past 12 Hours) Vital Signs Temp Pulse Pulse Pulse Resp BP Pulse Ox 05/23/25 07:43 36.5 C 82 18 155/83 H 94 05/23/25 05:34 78 05/23/25 03:42 36.4 C L 80 16 157/78 H 95 05/22/25 23:41 36.7 C 82 16 161/87 H 96 05/22/25 21:56 87 O2 Del Method 05/23/25 07:43 Room Air 05/23/25 05:34 05/23/25 03:42 Room Air 05/22/25 23:41 Room Air 05/22/25 21:56 PG Care Time/CCT Total # of Minutes Spent Total Time Spent with Patient: Total time spent is greater than 50% in coordination of care (as documented) at patient's floor/unit and/or counseling patient: Coding Level of Care Code 45377 SUB INP/OBS CARE 2/35MIN Diagnoses ESRD on hemodialysis N18.6; Z99.2 Hypertension I10 Anemia due to chronic kidney disease N18.9; D63.1 History of removal of dialysis catheter Z98.890
[2025-05-23 11:34] VITALS: BP 155/84; RESP 16; TEMP 97.5; O2SAT 95
--- NOTE | 2025-05-23 11:35 | Discharge Summary ---
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 Recent prolonged hospital stay 2nd to PRES with seizures and refractory hypertension (7.27 to 8.15). Admitted 2nd tunneled HD catheter falling out. #HD catheter accidental removal / ESRD on HD - -s/p tunneled HD catheter replacement on 05/[address] Pacheco -s/p LUE AV fistula creation by Dr Pacheco - 05/21 -cont pain control with oxy prn, tylenol scheduled q6h -s/p HD session today -transition away from IV dilaudid prn -discussed with Dr Pacheco - he advised against using a sling #Severe, refractory hypertension on multiple agents - -controlled with amlodipine, clonidine, labetalol, minoxidil, torsemide -has referral to [facility] for refractory HTN / renal denervation #PRES with seizures - -clinically resolved -recent headaches 2nd to PRES - resolved -had been on gabapentin for headache prophy - now off due to recent myoclonic jerks -cont Keppra 1gm daily x 3 mo for seizure prophy #Hepatosplenomegaly, asymmetric apical hypertrophic cardiomyopathy - -cardiac MRI recommended as outpatient to r/o infiltrative disease -SPEP, kappa/lambda, OC level, and screening test for Fabry's recently negative. No iron overload. Unclear cause of HSM -bone marrow bx was negative #Pancytopenia - -recent bone marrow Bx was hypocellular but otherwise negative; karyotype and genetics normal -Dr Hawk thought pancytopenia was possibly from splenomegaly #hyperkalemia - -cont lokelma -recheck BMP in am d/c home tomorrow Discharge Exam gen - NAD, but looks very tired today neck - no JVD mouth - MMM heart - 2/6 systolic murmur LSB, RRR, s1 s2 lungs - CTA b/l abd - soft NT ND BS+ vascular - right upper chest permcath clean; LUE AV fistula incision clean/intact; left arm with gross swelling (mild) ext - no edema, pulses b/l feet 2+ Discharge Plan Discharge Items Patient Disposition: Home - Self-Care Reason For Visit: TUNNELED DIALYSIS CATHETER CAME OUT Discharge Diagnosis: 1. tunneled dialysis catheter replacement on 05/[address] Ousmane Pacheco 2. Left arm AV fistula creation by Dr Pacheco - 05/21 3. end-stage renal disease on dialysis - //Monday schedule 4. recent PRES - resolved 5. hypertension 6. pancytopenia (cell counts are low) - slowly improving; bone marrow biopsy negative for bone marrow disease Condition on Discharge: Good Activity: As commented below Activity Comment: protect your left arm AV fistula at all times Exercise/Sports: Wait until after follow-up appointment Driving/Machine Use: May resume driving in 3 days IF you are no longer taking oxycodone pain med Non-emergency contact: Primary Care Provider, Surgeon and [employer] Call non-emergency contact if: you have any medication questions, your symptoms worsen, your pain is not controlled, your pain is worsening, your wound has increased redness, your wound has increased drainage and your wound pain has increased Follow-up/Referrals: Andriy Woods DO [Physician] - Andres Pacheco MD [Physician] - (2 weeks; Dr Pacheco's office will be calling you with appointment information ) Harsh Marshall DO [Primary Care Provider] - 05/29/25 11:30 am Diet: Dialysis Renal Fluids: 1800ml (7 cups) Addtl Attending Provider Instructions: Kvng, Your dialysis catheter was replaced during this hospitalization. Your pain from the dialysis catheter should improve over the next few days. You can take acetaminophen (Tylenol) up to 3000 mg per 24h for pain, and oxycodone for more severe pain for a couple of days as needed. Do not take ibuprofen, motrin, naprosyn, aspirin, aleve, goodie powders, etc. because of your kidney disease. Your blood pressure looks much better in comparison to the previous hospital stay. Dr. Guevara didn't recommend changing your BP meds right now, but if you are having systolic blood pressures ("top" number) of 120 or less OR lightheadedness your medications may need to be tapered soon - call Dr. Woods if you are noticing low blood pressures or you are feeling dizzy/lightheaded. Finally, you underwent AV fistula creation in your left arm by Dr Pacheco. Your pain from the surgery should improve in the next few days. You can take Tylenol as needed, oxycodone as needed, and you can elevate the arm on pillows to help with swelling for the next several days. See handout on AV fistula. Be sure to protect the left arm at all times. Keep the incision clean and dry. Ok to bath, but keep the incision covered to minimize water getting on the site. Remember that oxycodone can impair your senses, make you tired, etc. Do not drink alcohol while taking oxycodone. Do not drive a car or operate heavy machinery if taking oxycodone. Also, the oxycodone may make you constipated; you may have to take miralax or other constipation medicine while on oxycodone. Continue your Lokelma powder daily as previous unless Dr Woods tells you otherwise. Return to [facility] if - * you have uncontrolled pain in the left arm, left hand, or the dialysis catheter site in the chest/neck * you have worsening redness, swelling, drainage, etc from the catheter site or the AV fistula incision * you have fever over 100 degrees * you have recurrent headaches, visual changes, balance troubles, etc. * you have shortness of breath * any other concerns It was our pleasure to care for you! -Bin Krishnamurthy Pending Studies at Discharge: No Stand-Alone Forms: My [facility], Smoking Cessation Medications and DC Order Prescriptions: New oxycodone 5 mg Tablet 5 - 10 mg PO Q3H PRN (Reason: pain) Qty: 20 0RF Triple Antibiotic 3.5mg-400 unit- 5,000 unit/gram Ointment 1 applic EXT BID Qty: 0 0RF Continued hydroxyzine HCl 25 mg tablet 25 mg PO TID PRN (Reason: anxiety) Qty: 90 1RF calcium acetate(phosphat bind) 667 mg capsule 1,334 mg PO TIDM 90 Days Qty: 540 3RF amlodipine 10 mg tablet 10 mg PO QAM Qty: 90 2RF cholecalciferol (vitamin D3) 125 mcg (5,000 unit) tablet 125 mcg PO QAM Qty: 90 1RF torsemide 20 mg tablet 40 mg PO BID sertraline 25 mg tablet 25 mg PO DAILY Qty: 30 2RF clonidine 0.3 mg/24 hr patch weekly 0.3 mg transdermal Q7D ketoconazole 2 % cream 1 applic topical Q OTHER DAY PRN (Reason: Rash) Rx Instructions: Apply as directed at Cath site Medical Marijuana 1 dose PO DIRECTED PRN (Reason: Other) levetiracetam 1,000 mg tablet 1,000 mg PO DAILY Qty: 30 2RF Rx Instructions: for seizure prevention; on dialysis days take AFTER your dialysis session. lorazepam 0.5 mg Tablet 0.5 mg PO Q12H PRN (Reason: anxiety) Qty: 7 0RF mirtazapine 15 mg Tablet 15 mg PO HS Qty: 30 2RF Renal Caps 1 mg Capsule 1 cap PO QAM Qty: 30 2RF sevelamer carbonate 800 mg Tablet 800 mg PO TIDM Qty: 90 2RF labetalol 200 mg tablet 400 mg PO TID Qty: 180 2RF minoxidil 10 mg tablet 20 mg PO BID Qty: 120 2RF Lokelma 10 gram Powder In Packet 10 g PO DAILY@1900 Qty: 30 2RF Held gabapentin 100 mg Capsule 200 mg PO BID Qty: 120 2RF Hold Instructions: hold and see if the myoclonic jerks go away. If needed for headaches can restart at lower dose 100 mg twice a day Discharge Orders: Discharge Order (Routine); Ordered 05/23/25 Ordered By: Bin Beckett/Other Patient Handouts: AV Arteriovenous Fistula Dialysis Admission Data Admit Date/Time: 05/17/25 08:10 Attending Provider: Bin Krishnamurthy Admit Provider: Sher Vega Primary Care Provider: Harsh Marshall Other Providers: Sher Vega; Chavez Bonner; Johnson Guevara Kevin C.; Ramila Medellin; Andres Pacheco Hospital Stay Data Consultations 05/17/25 07:18 ED Decision to Admit Stat 05/17/25 09:17 Consult Nephrology Routine 05/17/25 11:31 Consult Vascular Surgery Routine Procedures Performed Operation Date: 05/21/25 12:30 Actual Procedures p Left forearm arteriovenous fistula between ulnar artery and median cubital vein (Left) - Andres Pacheco MD Diagnostic Imagining Performed 05/19/25 08:24 EV 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 Your pain from the dialysis catheter should improve over the next few days. You can take acetaminophen (Tylenol) up to 3000 mg per 24h for pain, and oxycodone for more severe pain for a couple of days as needed. Do not take ibuprofen, motrin, naprosyn, aspirin, aleve, goodie powders, etc. because of your kidney disease. Your blood pressure looks much better in comparison to the previous hospital stay. Dr. Guevara didn't recommend changing your BP meds right now, but if you are having systolic blood pressures ("top" number) of 120 or less OR lightheadedness your medications may need to be tapered soon - call Dr. Woods if you are noticing low blood pressures or you are feeling dizzy/lightheaded. Finally, you underwent AV fistula creation in your left arm by Dr Pacheco. Your pain from the surgery should improve in the next few days. You can take Tylenol as needed, oxycodone as needed, and you can elevate the arm on pillows to help with swelling for the next several days. See handout on AV fistula. Be sure to protect the left arm at all times. Keep the incision clean and dry. Ok to bath, but keep the incision covered to minimize water getting on the site. Remember that oxycodone can impair your senses, make you tired, etc. Do not drink alcohol while taking oxycodone. Do not drive a car or operate heavy machinery if taking oxycodone. Also, the oxycodone may make you constipated; you may have to take miralax or other constipation medicine while on oxycodone. Continue your Lokelma powder daily as previous unless Dr Woods tells you otherwise. Return to [facility] if - * you have uncontrolled pain in the left arm, left hand, or the dialysis catheter site in the chest/neck * you have worsening redness, swelling, drainage, etc from the catheter site or the AV fistula incision * you have fever over 100 degrees * you have recurrent headaches, visual changes, balance troubles, etc. * you have shortness of breath * any other concerns It was our pleasure to care for you! -Bin Krishnamurthy Coding Diagnoses ESRD on hemodialysis N18.6; Z99.2 Hypertension I10 PRES (posterior reversible encephalopathy syndrome) I67.83
[2025-05-23 11:42] VITALS: PULSE 73
== END 2025-05-23 15:56 | disposition home or self-care (01) | DRG 673 ==
LOC: SUATTDRO → ED 05:18 → SUATTDRO 08:10 → 2N 08:10 → 2W 20:02